=== PATIENT | female | born 1950 | race Caucasian/White ===

== ENCOUNTER 2019-05-23 12:18 | Outpatient (CLI) | payer MEDICARE, SELFPAY ==
--- NOTE | ~2019-05-23 | XR_ITS ---
XR chest 2V 05/23/2019 12:56 Indication: Emphysema. Cough. Procedure: 2 view chest Comparison: Comparison to multiple prior studies sequentially, with oldest reviewed study dated 02/2008. Findings: Status post median sternotomy for CABG. There are emphysematous changes. There is chronic l eft perihilar scarring. There is chronic elevation of the left diaphragm. No acute osseous abnormalit y. No acute focal pneumonia, edema or effusion. No pneumothorax. Impression: 1: No acute cardiopulmonary disease. No significant interval change from prior studies. Reviewed, dictated and finalized at location A. Impression: 1: No acute cardiopulmonary disease. No significant interval change from prior studies.
== END 2019-05-23 12:19 | disposition home or self-care (01) ==
PROVIDERS: PCP Family Medicine
DX: J43.9 Emphysema, unspecified (principal)
CPT/HCPCS: 71046; 93005

== ENCOUNTER 2019-06-04 09:45 | Outpatient (CLI) | payer MEDICARE, SELFPAY ==
--- NOTE | ~2019-06-04 | CT_ITS ---
EXAMINATION: CT brain wo con DATE: 06/04/2019 10:46 INDICATION: Chronic frontal headache. TECHNIQUE: Computed tomography (CT) of the head was performed without intravenous contrast. The mA wa s adjusted according to patient size. Iterative reconstruction technique was employed. The dose-lengt h product was 1226.69 mGy-cm. COMPARISON: None FINDINGS: Motion artifact is noted, which moderately decreases sensitivity. There are scattered areas of low attenuation in the cerebral white matter. There is no intracranial hemorrhage, acute infarcti on, or abnormal intracranial mass lesion. The ventricles are normal in size. There is an osteoma in r ight ethmoid sinus. There is mild mucosal thickening in the ethmoid sinuses. The mastoid air cells ar e normal. There are likely changes of ocular lens replacement surgeries. IMPRESSION: 1. Mild nonspecific cerebral white matter disease, which likely represents chronic small vessel ische olivia disease. Reviewed, dictated and finalized at location A. IMPRESSION: 1. Mild nonspecific cerebral white matter disease, which likely represents [employer] mukund small vessel ischemic disease.
[2019-06-04 10:06] LABS: Base Excess ABG 2.3 mmol/L (0-2); HCO3 ABG 27.8 mmol/L (23-29); Oxygen Content ABG 19.2 %vol (16.0-22.0); Oxygen Saturation ABG 94.4 % (95-97); Oxyhemoglobin 93.1 % (94-100); PCO2 ABG 46.6 mmHg (35-45); PO2 ABG 66.7 mmHg (75-85); Site Drawn LEFT BRACHIAL; Total Hemoglobin 14.7 g/dL; pH ABG 7.39 (7.35-7.45)
[2019-06-04 10:08] LABS: Device NASAL CANNULA
== END 2019-06-04 09:46 | disposition home or self-care (01) ==
LOC: CHSIMG 09:48
DX: R51 Headache (principal)
CPT/HCPCS: 36600; 70450; 82805

== ENCOUNTER 2019-08-04 08:36 | Outpatient (CLI) | payer MEDICARE, SELFPAY ==
[2019-08-04 09:20] LABS: Hemoglobin A1C 5.9 % (<5.7)
[2019-08-04 09:51] LABS: Alanine Aminotransferase 19 U/L (14-59); Albumin Level 3.8 g/dL (3.4-5.0); Alkaline Phosphatase 80 U/L (46-116); Aspartate Amino Transferase 13 U/L (15-37); Bilirubin Direct 0.1 mg/dL (0-0.2); Bilirubin,Total 0.4 mg/dL (0.00-1.00); Cholesterol 185 mg/dL (0-200); HDL Direct 51 mg/dL (40-60); LDL Cholesterol Calculated 109 mg/dL (<130); Thyroid Stimulating Hormone 1.08 uIU/mL (0.36-3.74); Triglycerides 127 mg/dL (0-150); Uric Acid 5.3 mg/dL (2.6-6.0)
== END 2019-08-04 08:37 | disposition home or self-care (01) ==
PROVIDERS: PCP Family Medicine; Visit Provider Family Medicine
DX: M10.00 Idiopathic gout, unspecified site (principal); E11.9 Type 2 diabetes mellitus without complications; E78.5 Hyperlipidemia, unspecified; E03.9 Hypothyroidism, unspecified
CPT/HCPCS: 36415; 80061; 80076; 83036; 84443; 84550

== ENCOUNTER 2020-03-15 12:55 | Outpatient (CLI) | payer MEDICARE, SELFPAY ==
--- NOTE | ~2020-03-15 | MM_ITS ---
EXAMINATION: MM screening p[place] BI w stephanie HISTORY: Screening mammogram TECHNIQUE: Craniocaudal and mediolateral oblique 3-D tomosynthesis images were obtained and synthetic 2-D images were generated. CAD analysis was submitted and interpreted. COMPARISON: 12/24/2018, 12/19/2017, 10/26/2016 bilateral digital screening mammogram examinations BREAST PARENCHYMAL COMPOSITION: There are scattered areas of fibroglandular density. FINDINGS: There is stable fibroglandular asymmetry. There is a stable benign circumscribed intramamma ry lymph node in the outer mid right breast. There is no evidence of suspicious mass, calcification, or architectural distortion to suggest malignancy in either breast. There has been no suspicious inte rval change. IMPRESSION: 1. No mammographic evidence of malignancy. 2. Recommend routine screening mammography in one year. BI-RADS Category 2: Benign finding(s). Reviewed, dictated and finalized at location A. LOGIST
== END 2020-03-15 12:56 | disposition home or self-care (01) ==
PROVIDERS: PCP Family Medicine; Visit Provider Family Medicine
DX: Z12.31 Encounter for screening mammogram for malignant neoplasm of breast (principal)
CPT/HCPCS: 77063; 77067

== ENCOUNTER 2020-12-13 08:43 | Outpatient (CLI) | payer MEDICARE, SELFPAY ==
[2020-12-13 10:08] LABS: Hemoglobin A1C 5.8 % (<5.7)
[2020-12-13 10:26] LABS: Cholesterol 168 mg/dL (0-200); HDL Direct 51 mg/dL (40-60); LDL Cholesterol Calculated 91 mg/dL (<130); Thyroid Stimulating Hormone 2.38 uIU/mL (0.36-3.74); Triglycerides 132 mg/dL (0-150)
== END 2020-12-13 08:44 | disposition home or self-care (01) ==
LOC: CHSLAB 08:47
PROVIDERS: PCP Family Medicine; Visit Provider Family Medicine
DX: E03.9 Hypothyroidism, unspecified (principal); E11.9 Type 2 diabetes mellitus without complications; E78.5 Hyperlipidemia, unspecified
CPT/HCPCS: 36415; 80061; 83036; 84443

== ENCOUNTER 2021-01-17 15:24 | Outpatient (RCR) | payer MEDICARE, SELFPAY ==
--- NOTE | 2021-01-17 17:05 | PTOPEVAL ---
Thank you for referring Tomeka Burrows to [facility].? The patient is scheduled to be seen for therapy? ____x/week for ___ weeks. Please review, sign, date and return this plan of care JONATHAN. I agree with and certify that the following plan of care is medically necessary. Referring Physician Date Admitting Provider: Attending Provider: Pavan Puga MD Referring Provider: *PT Outpatient Evaluation Start: 01/17/21 15:32 Freq: Status: Active Protocol: Document 01/17/21 15:33 ACR (Rec: 01/17/21 17:05 ACR [id number]) Therapy Assessment Status Assessment Status Assessment Status Evaluation Evaluation Information Problem Diagnosis Neck and L shoulder pain Onset 11/11/20 Subjective Information Patient reports that she fell Query Text:As Reported By Patient/ on concrete after she tripped Family over a flower pot. She states that she did not go to the ED after because her had just gotten home from surgery. She states that she followed up with the doctor and he sent her to a specialist. She went to the specialist and is not a candidate for surgery due to her O2. She states that she got a cortizone shot which helped for the day. She states she is unable to sleep through the night because of the pain. Patient reports that she is unable to do grooming and dressing activities along with reaching overhead and getting in and out of the shower. Patient denies radicular symptoms. Patient states that her goal for therapy is to be able to lift her arm over her head. Prior Level of Function Activity Level (Last 3 Months) Occupation retired Hand Dominance Right Activity of Daily Living Ability Independent Indoor/Home Mobility Independent Community Mobility Independent Stairs Ability Independent Functional Cognition (Planning, Shopping Independent , Taking Medications) Cooking No Cleaning No Laundry Yes Shopping No Driving
== END 2021-02-28 18:00 | disposition home or self-care (01) ==
LOC: CHSPT 15:24
PROVIDERS: Visit Provider Specialist
DX: M54.2 Cervicalgia (principal); M25.512 Pain in left shoulder
CPT/HCPCS: 97014; 97110; 97140; 97161; G0283

== ENCOUNTER 2022-08-01 13:56 | Outpatient (CLI) | payer MEDICARE, SELFPAY ==
[2022-08-01 14:54] LABS: Albumin Level 3.6 g/dL (3.4-5.0); Anion Gap 5 mmol/L (8-16); Blood Urea Nitrogen 20 mg/dL (7-18); Calcium 10.1 mg/dL (8.5-10.1); Carbon Dioxide 37 mmol/L (21-32); Chloride 99 mmol/L (98-108); Estimated Glomerular Filt Rate > 60; Glucose 145 mg/dL (70-99); Magnesium 1.3 mg/dL (1.8-2.4); Osmolality Calculated 297 mOsm/kg (285-295); Phosphorus 2.1 mg/dL (2.6-4.7); Potassium 3.5 mmol/L (3.5-5.1); Sodium 141 mmol/L (136-145)
[2022-08-04 22:37] LABS: Parathyroid Intact 116 pg/mL (14-64)
[2022-08-06 06:43] LABS: Vitamin D 25 Hydroxy 39 ng/mL (30-100)
== END 2022-08-01 13:57 | disposition home or self-care (01) ==
PROVIDERS: PCP Family Medicine
DX: E83.50 Unspecified disorder of calcium metabolism (principal)
CPT/HCPCS: 36415; 80069; 82306; 83735; 83970

== ENCOUNTER 2023-02-06 13:12 | Outpatient (CLI) | payer MEDICARE, SELFPAY ==
[2023-02-06 14:31] LABS: Albumin Level 3.8 g/dL (3.4-5.0); Anion Gap 2 mmol/L (8-16); Blood Urea Nitrogen 15 mg/dL (7-18); Calcium 10.7 mg/dL (8.5-10.1); Carbon Dioxide 42 mmol/L (21-32); Chloride 101 mmol/L (98-108); Estimated Glomerular Filt Rate 48; Glucose 138 mg/dL (70-99); Magnesium 1.1 mg/dL (1.8-2.4); Osmolality Calculated 302 mOsm/kg (285-295); Phosphorus 2.7 mg/dL (2.6-4.7); Potassium 3.8 mmol/L (3.5-5.1); Sodium 145 mmol/L (136-145)
[2023-02-08 19:17] LABS: Parathyroid Intact 181 pg/mL (14-64)
== END 2023-02-06 13:13 | disposition home or self-care (01) ==
LOC: CHSLAB 13:17
PROVIDERS: PCP Family Medicine
DX: E21.0 Primary hyperparathyroidism (principal); E83.52 Hypercalcemia; E11.9 Type 2 diabetes mellitus without complications
CPT/HCPCS: 36415; 80069; 83735; 83970

== ENCOUNTER 2023-04-11 07:35 | Outpatient (CLI) | payer MEDICARE, SELFPAY ==
[2023-04-11 08:11] LABS: Hemoglobin A1C 5.7 % (<5.7)
[2023-04-11 09:09] LABS: Thyroid Stimulating Hormone 2.93 uIU/mL (0.36-3.74); Vitamin B12 664 pg/mL (193-986)
== END 2023-04-11 07:36 | disposition home or self-care (01) ==
LOC: CHSLAB 07:38
PROVIDERS: PCP Family Medicine; Visit Provider Family Medicine
DX: E03.9 Hypothyroidism, unspecified (principal); R73.9 Hyperglycemia, unspecified
CPT/HCPCS: 36415; 82607; 83036; 84443

== ENCOUNTER 2023-10-15 13:41 | Outpatient (CLI) | payer MEDICARE, SELFPAY ==
[2023-10-15 14:03] LABS: Hematocrit 35.7 % (35.0-42.0); Hemoglobin 11.1 g/dL (11.7-13.8); Mean Corpuscular HGB Conc 31.1 g/dL (32-36); Mean Corpuscular Hemoglobin 30.1 pg (27.0-31.0); Mean Corpuscular Volume 96.7 fL (78.0-102.0); Mean Platelet Volume 9.2 fl (9.2-11.8); Platelet Count Result 237 K/mm3 (150-420); Red Blood Count 3.69 M/mm3 (4.20-5.40); Red Cell Distribution Width 12.9 % (11.6-14.4)
[2023-10-15 16:46] LABS: Albumin Level 3.6 g/dL (3.4-5.0); Anion Gap 6 mmol/L (4-12); Blood Urea Nitrogen 17 mg/dL (7-18); Calcium 9.8 mg/dL (8.5-10.1); Carbon Dioxide 39 mmol/L (21-32); Chloride 99 mmol/L (98-108); Estimated Glomerular Filt Rate 50; Glucose 100 mg/dL (70-99); Iron 47 ug/dL (50-170); Osmolality Calculated 299 mOsm/kg (285-295); Percent Iron Saturation 19 % (12-57); Phosphorus 3.1 mg/dL (2.6-4.7); Potassium 4.1 mmol/L (3.5-5.1); Sodium 144 mmol/L (136-145)
[2023-10-16 16:09] LABS: Parathyroid Intact 174 pg/mL (16-77)
[2023-10-19 15:44] LABS: Vitamin D 1,25 (OH)2 Total 52 pg/mL (18-72); Vitamin D2 1,25 (OH)2 <8 pg/mL; Vitamin D3 1,25 (OH)2 52 pg/mL
== END 2023-10-15 13:42 | disposition home or self-care (01) ==
LOC: CHSLAB 13:45
PROVIDERS: PCP Family Medicine; Visit Provider Internal Medicine Nephrology
DX: N20.0 Calculus of kidney (principal); N18.31 Chronic kidney disease, stage 3a; E83.52 Hypercalcemia
CPT/HCPCS: 36415; 80069; 82652; 83540; 83550; 83970; 85027

== ENCOUNTER 2023-10-15 14:00 | Emergency (ER) | payer MEDICARE, SELFPAY ==
--- NOTE | ~2023-10-15 | XR_ITS ---
EXAMINATION: XR hand LT min 3V DATE: 10/15/2023 14:19 INDICATION: Left hand pain and swelling. TECHNIQUE: 3 views of left hand were obtained. COMPARISON: None. FINDINGS: Alignment is normal. No fracture. There is severe osteoarthritis of distal radioulnar joint and first carpometacarpal joint. There is mild osteoarthritis of first-third metacarpophalangeal shane nts and some of the interphalangeal joints. IMPRESSION: 1. Polyarticular osteoarthritis. Reviewed, dictated and finalized at location A.
[2023-10-15 14:00] VITALS: BP 131/87; PULSE 84; RESP 16; TEMP 36.3; O2SAT 95
--- NOTE | 2023-10-15 14:17 | ED_ITS ---
HPI - General Adult General Chief complaint: Extremity Injury, Upper Stated complaint: Left hand swelling Time Seen by Provider: 10/15/23 14:04 History of Present Illness HPI narrative: Tomeka is a 73F with a PMH of COPD on oxygen, CKD, Obesity, and gout that presented to clinic with pain and swelling in her left hand. NO trauma or injury. No fevers, chills, N/V or systemic symptoms. Related Data Allergies Allergy/AdvReac Type Severity Reaction Status Date / Time No Known Allergies Allergy Verified 10/15/23 14:08 Review of Systems Review of Systems: All systems reviewed & are unremarkable except as noted in HPI and below Exam Const: General: cooperative, comfortable, no acute distress, well developed, alert, awake and Physically active Orientation/consciousness: oriented to person, oriented to place and oriented to time Other: wheelchair bound HENMT: Head: normal to inspection, normocephalic and atraumatic Ears: hearing grossly normal bilaterally and external ears normal Face/Nose/Sinus: Normal external nose present Eyes: General: appearance normal, both eyes and all related structures Periorbital: periorbital findings normal Sclera: sclerae normal Pupils: Equal, round and reactive pupils present Neck: Neck: normal visual inspection Chest: Chest palpation & inspection: normal inspection of the chest Resp: Effort & Inspection: normal respiratory effort, able to speak in complete sentences and no respiratory distress Auscultation: clear to auscultation bilaterally Other: on supplemental oxygen Cardio: Jugular venous distension: no JVD Rate: regular rate Rhythm: regular rhythm GI: Inspection: normal to inspection GI Palp: Yes Soft to palpation Auscultation: normal bowel sounds Skin: General skin exam: normal color and no rashes or lesions noted Neuro: General: oriented to person, oriented to place and oriented to time Cranial nerves: Yes Equal, round and reactive pupils present Extrem: General: normal to inspection Course Course Emergency Course: Given [place] for the pain. Ordered radiograph EXAMINATION: XR hand LT min 3V DATE: 10/15/2023 14:19 INDICATION: Left hand pain and swelling. TECHNIQUE: 3 views of left hand were obtained. COMPARISON: None. FINDINGS: Alignment is normal. No fracture. There is severe osteoarthritis of distal radioulnar joint and first carpometacarpal joint. There is mild osteoarthritis of first-third metacarpophalangeal joints and some of the interphalangeal joints. IMPRESSION: 1. Polyarticular osteoarthritis. Discharge Plan Discharge Clinical Impression: Gout flare Patient Disposition: Home, Self-Care Condition: Stable Instructions: Gout (ED) Prescriptions: New prednisone 10 mg tablet 10 mg PO DIRECTED Qty: 15 0RF Rx Instructions: 5-4-3-2-1 hydrocodone-acetaminophen 5-325 mg tablet 1 tablet PO Q8H PRN (Reason: pain) Qty: 10 0RF Follow-up/Referrals: Percy,Nicolas Jimenez MD [Primary Care Provider] -
[2023-10-15] MEDS: HYDROcodone/acetaminophen (*CRX) 5-325 MG TABLET 1 TAB PO (14:18)
[2023-10-15] MEDS: predniSONE 20 MG TABLET 60 MG PO (14:39)
[2023-10-15 14:51] VITALS: BP 137/86; PULSE 80; RESP 17; O2SAT 97
[2023-10-15 14:55] VITALS: BP 137/86; PULSE 80; RESP 17; TEMP 36.3; O2SAT 97
== END 2023-10-15 14:55 | disposition home or self-care (01) ==
PROVIDERS: Emergency Provider Family Medicine; PCP Family Medicine
DX: M10.9 Gout, unspecified (principal); J44.9 Chronic obstructive pulmonary disease, unspecified; N18.9 Chronic kidney disease, unspecified; Z99.81 Dependence on supplemental oxygen
CPT/HCPCS: 36415; 73130; 80069; 82652; 83540; 83550; 83970; 85027; 99283; A9270; J7512

== ENCOUNTER 2024-02-22 12:46 | Outpatient (CLI) | payer MEDICARE, SELFPAY ==
--- NOTE | ~2024-02-22 | XR_ITS ---
XR abdomen/kub 1V Ordering provider: Heather Vogel, KEARA History: . Left Renal Stone f/u . Comparison: None. FINDINGS: BOWEL: Nonobstructive bowel gas pattern. ORGANOMEGALY: None. SIGNIFICANT PATHOLOGIC CALCIFICATIONS: Stones in the left kidney lower pole with the largest measures 2.2 cm.. OTHER: No free air is seen under the diaphragm. Degenerative changes of the spine. Bilateral hip oste oarthritic changes. Right sacroiliitis. Pubic symphysitis. IMPRESSION: NO ACUTE ABDOMINAL FINDINGS. Left kidney stones. Reviewed, dictated and finalized at location A. [employer]
--- NOTE | ~2024-02-22 | CT_ITS ---
EXAMINATION: CT abdomen pelvis wo con DATE: 02/22/2024 13:09 INDICATION: Left Renal Stone f/u TECHNIQUE: Computed tomography (CT) of the abdomen and pelvis was performed without intravenous contr ast. Automated exposure control and iterative reconstruction technique were employed. The dose-length product was 741.26 mGy-cm. COMPARISON: 10/12/2011. FINDINGS: Lower thorax: Interstitial/emphysematous change. Dilated central pulmonary arteries as can be seen wi th pulmonary artery hypertension. Lingular scar. Multiple pulmonary nodules measuring up to 5 mm in t he left lower lobe. Calcified left lower lobe granuloma. Coronary artery calcifications. Liver: Normal. Biliary/Gallbladder: Gallbladder is normal. No bile duct dilation. Pancreas: Fatty infiltration. Spleen: Normal. Adrenals:No mass. Kidneys: No suspicious mass or hydronephrosis. Punctate left upper pole calcifications. Staghorn left lower pole calcification. Simple exophytic left lower pole and mid pole cysts. GI tract: No small or large bowel dilation. Normal appendix. Diverticulosis without diverticulitis. Mesentery/Peritoneum: No ascites, mass, or free air. Retroperitoneum: No mass. Atherosclerotic abdominal aortic and/or arterial calcifications. Pelvis: Normal urinary bladder. Absent uterus. Bilateral ovaries not confidently identified. Soft Tissues: Small fat-containing uncomplicated umbilical hernia. Bones: No acute osseous finding. IMPRESSION: Multiple sub-6 mm pulmonary nodules. If the patient is at high risk, consider an optional low-dose no ncontrast CT of the chest in one year. Punctate left upper pole and staghorn left lower pole renal calcifications. Reviewed, dictated and finalized at location K. IT[employer]OVER IMPRESSION: Multiple sub-6 mm pulmonary nodules. If the patient is at high risk, consider a n optional low-dose noncontrast CT of the chest in one year. Punctate left upper pole and staghorn left lower pole renal calcifications.
== END 2024-02-22 12:47 | disposition home or self-care (01) ==
PROVIDERS: PCP Family Medicine; Visit Provider Physician Assistant Medical
DX: N20.0 Calculus of kidney (principal); R91.8 Other nonspecific abnormal finding of lung field
CPT/HCPCS: 74018; 74176

== ENCOUNTER 2024-03-24 10:06 | Outpatient (CLI) | payer MEDICARE, SELFPAY ==
[2024-03-24 11:31] LABS: Hemoglobin A1C 5.4 % (<5.7)
[2024-03-24 11:37] LABS: Cholesterol 178 mg/dL (0-200); HDL Direct 57 mg/dL (40-60); LDL Cholesterol Calculated 92 mg/dL (<130); Triglycerides 145 mg/dL (0-150)
--- OUTSIDE RECORDS SUMMARY | 2024-03-24 13:00 | XMS_ITS | Clinical Summary ---
Author Organization [facility] Address [address] [address] Phone Care Team Providers Care Hunting Sales Leader Name Role Phone Ariel Christiansen MD Unavailable Parmjit Vogel MD Unavailable [phone] Nicolas Greer MD Primary Care Provider [phone] Keny Saldaña APRN, WOOD ENGRAVER Unavailable Jerardo MCCANN MD, Courtney Unavailable [phone] Raghu Green MD Unavailable Warren Osborn MD Unavailable Ale Spain RN Unavailable Unavailable Chetan Do MD Unavailable Allergies Active Allergy Reactions Criticality Noted Date Comments Vitamin D (Calciferol) Other (see Comments) 01/03/2022 Will stop due to hypercalcemia Medications Nebulizers (PORTABLE COMPRESSOR NEBULIZER) Misc Use as directed with nebulizer medications. 1 Each 020 Active OXYGEN CONCENTRATOR 3 L/min by Nasal route continuous. may use portable tanks when concentrator is unavailable Active benzonatate (Tessalon Perles) 100 MG Capsule Take 1 Capsule by mouth 3 times daily as needed for Cough for up to 10 days. 30 Capsule 023 Active Additional Information Patient not taking.Reported on 10/25/2023 fluticasone (FLONASE) 50 MCG/ACT Suspension USE 1 OR 2 SPRAYS IN EACH NOSTRIL DAILY 16 mL 1 023 Active traMADol (ULTRAM) 50 MG TabletIndicatio ns:Chronic pain of both knees TAKE ONE TABLET BY MOUTH EVERY EIGHT HOURS NEEDED FOR PAIN 90 Tablet 023 Active cinacalcet (SENSIPAR) 30 MG Tablet 2 times daily. 023 Active vitamin b-12 (CYANOCOBALAMIN ) 100 MCG Tablet TAKE TWO TABLETS BY MOUTH DAILY #0200 180 Tablet 1 024 Active Additional Information Patient not taking.Reported on 03/20/2024 True Metrix Blood Glucose Test StripIndication s:Controlled type 2 diabetes mellitus without complication (HCC) USE FOR TESTING TWICE A DAY DIRECTED 100 Strip 3 024 Active magnesium oxide (MAG-OX) 400 MG Tablet Take 400 mg by mouth daily. Active ipratropium-alb uterol (DUO-NEB) 0.5-2.5 (3) MG/3ML SolutionIndicat ions:Chronic obstructive pulmonary disease with acute exacerbation (HCC) INHALE THE CONTENTS OF ONE VIAL PER NEBULIZATION FOUR TIMES A DAY DIRECTED 360 mL 2 024 Active Breztri Aerosphere 160-9-4.8 MCG/ACT Aerosol INHALE TWO PUFFS BY MOUTH IN THE MORNING AND AT BEDTIME 10.7 g 2 024 Active albuterol 108 (90 Base) MCG/ACT Aerosol Solution INHALE 2 PUFFS EVERY FOUR HOURS NEEDED FOR WHEEZING 8.5 g 1 024 Active Benzonatate 200 MG Capsule Take 1 Capsule by mouth 3 times daily as needed for Cough for up to 210 days. 90 Capsule 6 024 2024 Active torsemide (DEMADEX) 20 MG TabletIndicatio ns:Edema, unspecified type TAKE ONE TABLET BY MOUTH DAILY #0100 90 Tablet 1 024 Active levothyroxine (SYNTHROID) 137 MCG Tablet TAKE ONE TABLET BY MOUTH DAILY #1000 90 Tablet 3 024 Active folic acid (FOLVITE) 1 MG Tablet TAKE ONE TABLET BY MOUTH DAILY #0100 90 Tablet 3 024 Active furosemide (LASIX) 20 MG Tablet TAKE ONE TABLET BY MOUTH DAILY #1000 90 Tablet 3 024 Active rOPINIRole (REQUIP) 0.25 MG Tablet TAKE ONE TABLET BY MOUTH NIGHTLY #0001 90 Tablet 3 024 Active trospium (SANCTURA) 20 MG TabletIndicatio ns:Mixed stress and urge urinary incontinence TAKE ONE TABLET BY MOUTH TWICE A DAY #1010 90 Tablet 2 024 Active Additional Information Patient not taking.Reported on 03/20/2024 esomeprazole (NexIUM) 40 MG CAPSULE DELAYED RELEASE TAKE ONE CAPSULE BY MOUTH EVERY MORNING BEFORE BREAKFAST #1000 90 Capsule 1 024 Active alendronate (FOSAMAX) 70 MG Tablet Take 1 Tablet by mouth every 7 days. 12 Tablet 1 024 Active vitamin b-12 (CYANOCOBALAMIN ) 500 MCG Tablet TAKE TWO TABLETS BY MOUTH DAILY #0200 180 Tablet 025 Active allopurinol (ZYLOPRIM) 100 MG Tablet TAKE TWO TABLETS BY MOUTH DAILY #2000 180 Tablet 2 025 Active Aspirin Low Dose 81 MG Tablet Delayed Response TAKE 1 TABLET BY MOUTH DAILY. #1000 90 Tablet 2 025 Active potassium chloride CR (KLORCON) 10 MEQ Tablet Controlled Release TAKE TWO TABLETS BY MOUTH DAILY #2000 180 Tablet 2 025 Active lovastatin (MEVACOR) 40 MG Tablet TAKE ONE TABLET BY MOUTH DAILY #0001 90 Tablet 2 025 Active sertraline (ZOLOFT) 100 MG TabletIndicatio ns:Depression with anxiety,Depress ion, unspecified depression type Take 1.5 Tablets by mouth daily. 90 Tablet 3 025 Active Aspirin Low Dose 81 MG Tablet Delayed Response TAKE 1 TABLET BY MOUTH DAILY. #1000 90 Tablet 2 024 2024 Discontinued allopurinol (ZYLOPRIM) 100 MG Tablet TAKE TWO TABLETS BY MOUTH DAILY #2000 180 Tablet 2 024 2024 Discontinued potassium chloride CR (KLORCON) 10 MEQ Tablet Controlled Release TAKE TWO TABLETS BY MOUTH DAILY #2000 180 Tablet 2 024 2024 Discontinued lovastatin (MEVACOR) 40 MG Tablet Take 1 Tablet by mouth daily. 90 Tablet 2 024 2024 Discontinued sertraline (ZOLOFT) 100 MG TabletIndicatio ns:Depression with anxiety,Depress ion, unspecified depression type Take 1 Tablet by mouth daily. 90 Tablet 3 024 2024 Discontinued(D ose adjustment) carbamide peroxide (DEBROX) 6.5 % Solution Place 5 Drops in affected ear(s) 2 times daily. 15 mL 024 2024 Discontinued(M ed List Clean Up) HYDROcodone-horacio taminophen (NORCO) 5-325 MG Tablet 024 2024 Discontinued(M ed List Clean Up) Active Problems Problem Noted Date Diagnosed Date Multiple lung nodules on CT 03/20/2024 Osteoporosis without current pathological fractu re 11/12/2023 URI, acute 10/25/2023 Impacted cerumen of left ear 07/18/2023 Postmenopausal 07/18/2023 Depression with anxiety 07/18/2023 History of colon polyps 04/04/2023 Bilateral impacted cerumen 09/21/2022 Chronic respiratory failure with hypoxia and hyp ercapnia 09/11/2022 Urinary incontinence 07/18/2022 Chronic pain syndrome 06/21/2022 Kidney stone 06/21/2022 Asymptomatic microscopic hematuria 03/25/2022 Fatigue 02/13/2022 Anemia, normocytic normochromic 02/13/2022 Hypercalcemia 02/13/2022 Constipation 01/11/2022 Eye swelling 01/11/2022 Lung nodule, multiple 01/04/2022 Restless legs syndrome (RLS) 01/04/2022 Pleural effusion 12/19/2021 B12 deficiency 12/19/2021 Polypharmacy 08/03/2021 Hyperglycemia 08/03/2021 Impaired mobility and ADLs 07/22/2021 Chronic left shoulder pain 04/28/2021 Encounter for immunization 12/20/2020 Blepharitis of left lower eyelid 09/22/2020 SOB (shortness of breath) 06/08/2020 Chronic obstructive pulmonary disease 03/11/2020 Diarrhea 03/11/2020 Depression 11/05/2018 Chronic pain of both knees 08/02/2018 Chronic low back pain with sciatica 08/02/2018 Chronic cough 04/30/2018 Hypokalemia 04/30/2018 Osteopenia 01/25/2018 Hx of colonic polyp 10/20/2016 SANDRA on CPAP 08/22/2016 Tobacco abuse 12/09/2015 Morbid obesity (<HCC>) 09/02/2015 Essential hypertension 06/01/2015 Hypothyroidism 06/01/2015 Idiopathic gout 06/01/2015 Type 2 diabetes mellitus, controlled 06/01/2015 Non-insulin dependent type 2 diabetes mellitus 1 03/09/2014 Hyperlipidemia 01/06/2015 Resolved Problems Problem Noted Date Diagnosed Date Resolved Date COPD exacerbation 01/11/2022 01/08/2023 Acute on chronic respiratory failure with hypoxia and hypercapnia 12/24/2021 12/28/2021 COPD exacerbation 12/24/2021 12/28/2021 Pleural effusion on left 12/24/2021 Community acquired pneumonia 12/24/2021 12/28/2021 Abnormal CXR 12/19/2021 02/14/2024 Cough 12/19/2021 02/14/2024 CHF (congestive heart failure) 09/02/2021 09/05/2021 Hypomagnesemia 09/02/2021 09/05/2021 Encounters Date Type Department Care Team Description 03/21/[address] [facility] Studio Assistant Management [address] [place] [phone] Ale Spain RN 03/20/2024 4:00 PM LEARNING OFFICER Office Visit [facility] [address] [place] [address] Nicolas Greer MD Non-insulin dependent type 2 diabetes mellitus (HCC) (Primary Dx); Multiple lung nodules on CT; Depression, unspecified depression type; Hyperlipidemia, unspecified hyperlipidemia type Discharge Disposition: Discharged to home or Selfcare 03/20/2024 Travel 03/19/2024 Refill [facility] [address] [place] [address] Nicolas Greer MD Medication Refill 03/03/2024 Plan of Care Documentation [facility] Management [address] [place] [phone] 03/03/2024 Patient Outreach [facility] Studio Assistant Management [address] [place] [phone] Ale Spain, WALDO Care Management ([facility]) 02/20/2024 Refill [facility] [address] [place] [address] Nicolas Greer MD Medication Refill 02/14/2024 10:45 AM LEARNING OFFICER Office Visit [facility] Pulmonology & Sleep Medicine [facility] [address] [place] [address] Raghu Green MD Other emphysema (HCC) (Primary Dx); Chronic respiratory failure with hypoxia and hypercapnia (HCC); SANDRA on CPAP; Essential hypertension; Morbid obesity (<HCC>); Restless legs syndrome (RLS) Discharge Disposition: Discharged to home or Selfcare 02/14/2024 Travel 02/04/2024 Patient Outreach [facility] Studio Assistant Management [address] [place] [phone] Ale Spain, WALDO Care Management ([facility] ) 01/27/2024 Telephone [facility] [address] [place] [address] Chetan Do MD Results 01/25/2024 2:15 PM LEARNING OFFICER Office Visit [facility] [address] [place] [address] Nicolas Greer MD Tae, Wonil, MD Osteoporosis without current pathological fracture, unspecified osteoporosis type (Primary Dx); Hypercalcemia; Hyperparathyroidism (HCC); Morbid obesity (HCC) Discharge Disposition: Discharged to home or Selfcare 01/25/2024 Travel 01/14/2024 Refill [facility] [address] [place] [phone] Nicolas Greer MD Medication Refill 01/01/2024 Patient Outreach [facility] Studio Assistant Management [address] [place] [address] Ale Spain RN Care Management ([facility]) from Last 3 Months Immunizations Immunization Administration Dates Next Due Covid-19, Mrna, Lnp-s, PF, 1 00 mcg/0.5 mL Dose (Moderna) 05/07/2020,04/09/2020 Influenza Vaccine greater than 3 yrs 11/17/2015, 12/08/2014 Influenza Vaccine less than 3 yrs 10/25/2018 Influenza Vaccine, Quadrivalent, PF 12/06,12/20/2020,10/14/2019,2017,12/08/2014 Influenza, Seasonal, Injecta ble, Undefined 10/25/2018,12/07/2014 Influenza, high-dose, trivalent, PF 10/18/2018,0 11/01/2016,11/17/2015 PNEUMONIA ADULT IM [id number] 11/01/2016 Pneumococcal Vaccine - 13 Valent 11/17/2015 Pneumococcal Vaccine Adult - 23 Valent 11/01/2016 Family History Medical History Relation Name Comments Congestive Heart Failure Brother 1 Diego Diabetes Brother 1 Diego Cancer Brother 2 Heart Attack Brother 3 No Known Problems Daughter Aneurysm Father Hypertension Father Cancer Mother [place] uterus Heart Attack Mother [place] Hypertension Mother [place] Ovarian Cancer Mother [place] Other-comment Sister 2 Diabetes Son Hypertension Son Rheumatoid Arthritis Neg Hx Relation Name Status Comments Brother 1 Diego Brother 2 Brother 3 Brother 4 Brother 5 Brother 6 Brother 7 Daughter Alive Father Mother [place] Sister 1 Alive Sister 2 Son Alive Social History Tobacco Use Types Packs/Day Years Used Date Smoking Tobacco: Former Cigarettes 0.5 50 1 957 - 2007 Smokeless Tobacco: Never Tobacco Cessation:Counseling Given: Yes Alcohol Use Standard Drinks/Week Comments No 0 (1 standard drink = 0.6 oz pur e alcohol) [facility] Utilities Answer Date Recorded In the past 12 months has e electric, gas, oil, or water company threatened to shut off services in your home? No 03/03/2024 Social Connection and Isolation Panel [NHANES] A nswer Date Recorded In a typical week, how many times do you talk on the phone with family, friends, or neighbors? Twice a week 03/03/2024 How often do you get together with friends or re latives? Twice a week 03/03/2024 How often do you attend anglican or jain serv ices? Never 03/03/2024 Do you belong to any clubs o r organizations such as anglican groups, unions, fraternal or athletic groups, or school groups? No 03/03/2024 How often do you attend meet ings of the clubs or organizations you belong to? Never 03/03/2024 Are you , , di vorced, , never , or living with a partner? 03/03/2024 AUDIT-C Answer Date Recorded Q1: How often do you have a drink containing alcohol? Never 03/03/2024 Q2: How many drinks containi ng alcohol do you have on a typical day when you are drinking? Patient does not drink Q3: How often do you have si x or more drinks on one occasion? Never 03/03/2024 Overall Financial Resource Strain (CARDIA) Answe r Date Recorded How hard is it for you to pa y for the very basics like food, housing, medical care, and heating? Not hard at all 03/03/2024 PHQ-2 Answer Date Recorded Total Score - Questions 1-9 0 02/06 [facility] - Occupational Stress Questionnaire Answer Date Recorded Do you feel stress - tense, restless, nervous, or anxious, or unable to sleep at night because your mind is troubled all the time - these days? Only a little 03/03/2024 Exercise Vital Sign Answer Date Recorde d On average, how many days pe r week do you engage in moderate to strenuous exercise (like a brisk walk)? 0 days 03/03/2024 On average, how many minutes do you engage in exercise at this level? 0 min 03/03/2024 Hunger Vital Sign Answer Date Recorded Within the past 12 months, y ou worried that your food would run out before you got the money to buy more. Never true 03/03/19 25 Within the past 12 months, t he food you bought just didn't last and you didn't have money to get more. Never true 03/03/2024 PRAPARE - Transportation Answer Date Re corded In the past 12 months, has l ack of transportation kept you from medical appointments or from getting medications? No 02/06 In the past 12 months, has l ack of transportation kept you from meetings, work, or from getting things needed for daily living? No 03/03/2024 Housing Stability Vital Sign Answer Yuri e Recorded In the last 12 months, was t here a time when you were not able to pay the mortgage or rent on time? Patient declined 04/04/19 24 Number of Places Lived in the Last Year Not on f ile 04/04/2023 In the last 12 months, was t here a time when you did not have a steady place to sleep or slept in a senior care (including now)? Patient declined 04/04/2023 Housing Stability Vital Sign Answer Yuri e Recorded In the last 12 months, was t here a time when you were not able to pay the mortgage or rent on time? No 03/03/2024 In the past 12 months, how m any times have you moved where you were living? 0 03/03/2024 At any time in the past 12 m [facility], were you homeless or living in a senior care (including now)? No 03/03/2024 Education Answer Date Recorded What is the highest level of school you have completed or the highest degree you have received? 12th grade 08/03/2021 Sexually Active Control Partners Comments Not Currently Male Comments No Sex and Gender Information Value Date Recorded Sex Assigned at Not on file Legal Sex Female 7:47 PM CDT Gender Identity Not on file Sexual Orientation Not on file Occupation Industry Job Start Date Job End Date Retired [employer] Not on file Not on file Not on file Last Filed Vital Signs Vital Sign Reading Time Taken Comments Blood Pressure 130/72 03/20/2024 3:50 PM LEARNING OFFICER Pulse 102 03/20/2024 3:50 PM LEARNING OFFICER Temperature 36.1 C (96.9 F) 03/20/2024 3:50 PM LEARNING OFFICER Respiratory Rate 14 02/14/2024 11:08 AM LEARNING OFFICER Oxygen Saturation 95% 03/20/2024 3:50 PM LEARNING OFFICER Inhaled Oxygen Concentration - - Weight 106.1 kg (234 lb) 03/20/2024 3:50 PM LEARNING OFFICER Height 152.4 cm (5') 03/20/2024 3:50 PM LEARNING OFFICER Body Mass Index 45.7 03/20/2024 3:50 PM LEARNING OFFICER Plan of Treatment Upcoming Encounters Date Type Department Care Team (Late st Contact Info) Description 04/24/2024 2:00 PM CDT Office Visit [facility] - Endocr[facility]ology - [place] [address] [place] [address] Chetan Do MD [address] [address] 08/14/2024 1:00 PM CDT Office Visit [facility] - Pulmonology & Sleep Medicine - [place] [address] [facility] [place] [address] Raghu Green MD [address] [place] [address] 09/17/2024 1:00 PM CDT Office Visit [facility] - [place] [address] [place] [address] Nicolas Greer MD [address] [address] Health Maintenance Due Date Last Done Comments Diabetes: Foot Exam 1950 TdaP Immunization 1950 Zoster Immunization (1 of 2) 01/27/1998 Diabetes: Eye Exam 06/08/2021 06/09/2019, 06/12/2017 Respiratory Syncytial Virus (RSV) Immunization (Adult) (1 - 1-dose 75+ series) 01/27/2023 Influenza Immunization (#1) 10/07/202312/06, 12/20/2020, 10/14/2019, Additional history exists SARS-COV-2 Immunization ( season) 2023 01/26/2021, 05/07/2020, 04/09/2020 Diabetes: Hemoglobin A1c 01/17/2024 024, 12/25/2021, 08/05/2021, Additional history exists Diabetes: Nephropathy Screening 01/24/2025 01/25/2024, 07/18/2023, 12/24/2021, Additional history exists DEXA Bone Density 11/06/2025 11/07/2023, , 12/19/2017 Hepatitis C Virus (HCV) Screening Completed 02/22/2016 Pneumococcal Immunization (50+ years) Completed 11/01/2016, 11/01/2016, 11/17/2015 Pneumococcal Immunization Combined Discontinued 11/01/2016, 11/01/2016, 11/17/2015 Mammogram Discontinued 10/12/2021, 0 09/2020, 12/24/2018, Additional history exists Colonoscopy High Risk Discontinued 06/14/2023, 018 Colonoscopy Discontinued 06/14/2023, 0 10/2023, 07/20/2017 Colorectal Cancer Screening Discontinued Cologuard Discontinued Hepatitis B Immunization Aged Out No longer eligible based on patient's age to complete this topic Immunochemical Fecal Occult Blood Discontinued Meningococcal Immunization (ACWY) Aged Out No longer eligible based on patient's age to complete this topic Rotavirus Immunization Aged Out No lo nger eligible based on patient's age to complete this topic Goals Goal Patient Goal Type Associated Problems Recent Progress Patient-Stated? Author Become More Active Patient Goals On track(2024 3:47 PM LEARNING OFFICER) Yes Ale Spain RN Note: Follow Up Date 03/2024 - keep track of how long I exercise - keep track of how often I exercise Why is this important? It is easy to come up with reasons not to exercise. These steps will help you get started and have fun doing it. Notes: Track and Manage My Symptoms Patient Goals On track(2024 3:51 PM LEARNING OFFICER) Yes Ale Spain RN Note: Follow Up Date 03/2024 - eliminate symptom triggers at home - follow rescue plan if symptoms flare up - keep follow-up appointments - use an extra pillow to sleep Why is this important? Tracking your symptoms and other information about your health helps your doctor plan your care. Write down the symptoms, the time of day, what you were doing and what medicine you are taking. You will soon learn how to manage your symptoms. Notes: Disease Progression Minimized or Managed Care Plan Disease Progression (COPD) Ale Tanner RN Note: Evidence-based guidance: Identify smoking status; perform brief cessation intervention, such as 5 A s (ask, advise, assess, assist, arrange) or 5 R s (relevance, risks, rewards, roadblocks, repetition) and referral for treatment, such as cessation counseling and pharmacotherapy. Assess symptom control by the frequency and type of symptoms, ROBERTO CARLOS (short-acting beta-2 agonist) use and activity limitation at every encounter. Assess risk for exacerbation (flare-up) by evaluating spirometry, pulse oximetry, ROBERTO CARLOS use, presentation of symptoms and activity limitation; anticipate treatment adjustment based on risks and resources. Establish development and adherence to self-management COPD (chronic obstructive pulmonary disease) action plan, even when symptoms are controlled or infrequent. Identify triggers, such as smoking, secondhand smoke exposure, virus, weather change, emotional upset, exercise, obesity, environmental allergen, as well as comorbidities, such as diabetes, heart failure, obstructive sleep apnea, depression and anxiety which may worsen symptoms; consider occupational-exposure reduction versus elimination to avoid compromising employment. Review medication use, including delivery method, dose, frequency; identify barriers to adherence, such as access to medication, adverse reaction or lack of skill. Assess medication efficacy; monitor side effects including impact on blood glucose control for those with diabetes; anticipate periodic adjustments. Assess and reinforce correct inhaler technique frequently. Promote physical activity and use of energy conservation and activity-pacing techniques; assess and monitor fall risk. Facilitate referral to pulmonary rehabilitation for awzozkoor-civcljebs-uzfurb training, improved exercise capacity, mood and quality of life; address barriers to participation. Promote use of breathing and cough techniques, such as inspiratory muscle training, pursed-lip breathing, diaphragmatic breathing, pranayama yoga breathing or licea cough to clear mucus and relieve shortness of breath. Screen for SANDRA (obstructive sleep apnea); prepare patient for polysomnography based on risk and presentation. Prepare patient for use of long-term oxygen and noninvasive ventilation to relieve hypercapnia, hypoxemia, SANDRA and to reduce work of breathing. Screen for malnutrition risk factors, such as unintentional weight loss, micronutrient deficiencies and poor oral intake; if identified, refer to dietitian; consider drink supplement, multivitamin and mineral supplements. Prepare patient with worsening disease for surgical intervention that may include bronchoscopy, lung volume reduction surgery, bullectomy or lung transplantation. Notes: Medical Devices Implanted Type Area Mitochondrial Disorders Counselor Device Identifier Shelf Expiration Date Model / Serial / Lot Clip 360 Resolution 235cm - [id number] Implanted:Qty: 2 on 07/20/2017 by Hua Daily DO at [facility] IMPLANT N/A: Other OriginOil 04/15/2020 [id number] / [id number] / [id number] Description:DISTAL ASCENDING COLON Procedures Procedure Name Priority Date/Time Associated Diagnosis Comments CT - ABDOMEN/PELVIS 02/22/2024 1 2:00 AM LEARNING OFFICER VITAMIN D, 25 HYDROXY TOTAL Routine 01/25/2024 2:31 PM LEARNING OFFICER Osteoporosis without current pathological fracture, unspecified osteoporosis type Hypercalcemia PARATHYROID HORMONE PTH INTACT Routine 01/25/2024 2:31 PM LEARNING OFFICER Osteoporosis without current pathological fracture, unspecified osteoporosis type Hypercalcemia CMP (COMPREHENSIVE METABOLIC PANEL) Routine 01/25/2024 2:31 PM LEARNING OFFICER Osteoporosis without current pathological fracture, unspecified osteoporosis type Hypercalcemia UROLOGY CONSULT 01/14/2024 12:00 AM LEARNING OFFICER [facility] BONE DENSITOMETRY AXIAL SKELETON Routine 11/07/2023 1:18 PM CDT Postmenopausal HEMOGLOBIN A1C W/ ESTIMATED GLUCOSE Today 07/18/2023 3:07 PM CDT Non-insulin dependent type 2 diabetes mellitus (HCC) [facility] SCREENING BILATERAL DIGITAL W CAD Routine 10/12/2021 3:18 PM CDT Encounter for screening mammogram for malignant neoplasm of breast HM DILATED EYE EXAM Routine 06/12/2017 HEPATITIS C ANTIBODY Routine 02/22/2016 from Last 3 Months or Most Recently Relevant to Health Maintenance Results * CT - ABDOMEN/PELVIS (02/22/2024 12:00 AM LEARNING OFFICER) 02/22/2024 us Provider Scan IMG CT ORDERABLES Final Result SCAN * VITAMIN D, 25 HYDROXY TOTAL (01/25/2024 2:31 PM LEARNING OFFICER) VITAMIN D, 25 HYDROX 37.7 ng/mL 01/25/2024 3:37 PM LEARNING OFFICER [facility] Blood Venipuncture / Unknown 01/25/2024 2:31 PM LEARNING OFFICER 01/25/2024 2:48 PM LEARNING OFFICER Narrative [facility] - 01/25/2024 3:37 PM LEARNING OFFICER Published reference ranges for Vitamin D vary depending on time and place and method of testing, and on patient's age, sex, ethnicity and levels of other measured analytes such as parathormone, calcium and phosphorus. The result should be evaluated in conjunction with clinical findings and suspicions. [facility] Clinical Practice Guidelines: Status Vitamin D levels (ng/mL) Deficient <=20 At risk of inadequacy 21-29 Sufficient 30-100 Centers of Disease Control and Prevention Guidelines: Status Vitamin D levels (ng/mL) Deficient <13 At risk of inadequacy 13-19 Sufficient 20-50 Possibly harmful >50 References: [facility] [employer], 2010 Dietary reference intakes for calcium and vitamin D. Sheets [place]: The National Academies Press. Deni M, Wilfredo N, Belkis العراقي, et al., Evaluation, treatment, and prevention of Vitamin D deficiency: an Endocrinology Clinical Practice Guideline. JCEM 2011 96: 7 3958-1154. Roxana A, Wilton C, Juan D, et al., Vitamin D Status: [place], 6971-1562, [facility] data brief, no. 59, MD Mel: National Center for Health Statistics. 2010. us Chetan Do MD CHEMISTRY ORDERABLES Final Resul t [facility] [address] [place] [address] * (ABNORMAL) PARATHYROID HORMONE PTH INTACT (01/25/2024 2:31 PM LEARNING OFFICER) PTH INTACT 220(H) 13 - 85 pg/mL 01/25/2024 3:20 PM LEARNING OFFICER [facility] Blood Venipuncture / Unknown 01/25/2024 2:31 PM LEARNING OFFICER 01/25/2024 2:48 PM LEARNING OFFICER us Chetan Do MD CHEMISTRY ORDERABLES Final Resul t [facility] [address] [place] [address] * (ABNORMAL) CMP (COMPREHENSIVE METABOLIC PANEL) (01/25/2024 2:31 PM LEARNING OFFICER) Pathologist [facility] SODIUM 143 136 - 145 mmol/L 01/25/2024 3:16 PM LEARNING OFFICER [facility] POTASSIUM 3.9 3.5 - 5.1 mmol/L 01/25/2024 3:16 PM LEARNING OFFICER [facility] CHLORIDE 96(L) 98 - 107 mmol/L 01/25/2024 3:16 PM [facility] CO2, VENOUS 38(H) 22 - 30 mmol/L 01/25/2024 3:16 PM LEARNING OFFICER [facility] ANION GAP 12.9 <18.0 mmol/L 01/25/2024 3:16 PM LEARNING OFFICER [facility] GLUCOSE 130(H) 70 - 99 mg/dL 01/25/2024 3:16 PM [facility] BUN 20 10 - 20 mg/dL 01/25/2024 3:16 PM [facility] CREATININE, BLOOD 1.01(H) 0.60 - 1.00 mg/dL 01/25/2024 3:16 PM [facility] BUN/CREATININE RATIO 20 12 - 20 ratio 01/25/2024 3:16 PM [facility] TOTAL PROTEIN 7.1 6.3 - 8.2 g/dL 01/25/2024 3:16 PM LEARNING OFFICER [facility] ALBUMIN 4.3 3.5 - 5.0 g/dL 01/25/2024 3:16 PM [facility] A/G RATIO 1.5 1.0 - 2.2 01/25/2024 3:16 PM [facility] CALCIUM 10.7(H) 8.7 - 10.5 mg/dL 01/25/2024 3:16 PM [facility] T BILI 0.4 0.2 - 1.2 mg/dL 01/25/2024 3:16 PM [facility] SGOT (AST) 14 5 - 34 U/L 01/25/2024 3:16 PM [facility] SGPT (ALT) 13 0 - 55 U/L 01/25/2024 3:16 PM [facility] ALKALINE PHOSPHATASE 88 40 - 150 U/L 01/25/2024 3:16 PM [facility] IS THE PATIENT REQUIRED TO BE FASTING? No 01/25/2024 3:16 PM [facility] GFR, ESTIMATED 58(L) >=60 01/25/2024 3:16 PM [facility] Comment: Creatinine Clearance is the preferred criteria for selecting drug dose adjustments in renally impaired patients. The GFR is provided as additional pertinent clinical information. GFR is reported in mL/min/1.73 sq m. Calculation based on the Chronic Kidney Disease Epidemiology Collaboration (CKD- EPI) equation refit without adjustment for race. GFR, EST. >60 >=60 024 3:16 PM [facility] GFR, EST. NONAFRICAN 53(L) >=60 01/25/2024 3:16 PM [facility] Blood Venipuncture / Unknown 01/25/2024 2:31 PM LEARNING OFFICER 01/25/2024 2:47 PM LEARNING OFFICER us Chetan Do MD CHEMISTRY ORDERABLES Final Resul t [facility] [address] [facility] [place] [address] * UROLOGY CONSULT (01/14/2024 12:00 AM LEARNING OFFICER) 01/14/2024 us Provider Scan GENERIC SCAN ORDERS CONSULT Jacqueline l Result SCAN * [facility] BONE DENSITOMETRY AXIAL SKELETON (11/07/2023 1:18 PM CDT) Anatomical Region Laterality Modality BODY N/A Computed Radiogr aphy 11/07/2023 1:41 PM CDT Impressions 11/07/2023 1:44 PM CDT IMPRESSION: Osteoporosis. REFERENCE: Bone mineral density: T-Score: Normal (T-score above or = -1.0) Low bone mass (T-score between -1.0 and -2.5) replaces the previously used term osteopenia Osteoporosis (T-score = or below -2.5) Z-Score: Within the expected range for age (Z-score above -2.0) Below the expected range for age (Z-score is -2.0 or below) Please see below follow up recommendations. Medical evaluation for secondary causes of low bone mineral density may be appropriate. FRAX is a World Health Organization validated fracture risk assessment tool that calculates a person's 10 year probability of a major osteoporosis related fracture and hip fracture. According to the National Osteoporosis Foundation guidelines, postmenopausal women and men age 50 or older with low bone mass and a 10 year probability of a major osteoporosis related fracture = or greater than 20% or a 10 year probability of a hip fracture = or greater than 3% should be considered for pharmacological treatment for the prevention of osteoporosis. For further information, including treatment recommendations, please refer to the 2019 ISCD Official Positions (http://www.iscd.org) and the NOF's Clinician's Guide to Prevention and Treatment of Osteoporosis (http://www.nof.org/professionals/clinical-guidelines) Narrative 11/07/2023 1:44 PM CDT EXAM DESCRIPTION: [facility] BONE DENSITOMETRY AXIAL SKELETON REASON FOR STUDY: 73 y/o year old F with given history of: Post menopausal status. History secondary osteoporosis and COPD. Patient takes a multivitamin. Mitochondrial Disorders Counselor/Model: Dialective (S/N [id number]) CLINICAL INFORMATION: Current height: 60 inches Maximum height: 63 inches Weight: 231 pounds Risk factors: Secondary osteoporosis COMPARISON: 10/12/2021 FINDINGS: AP LUMBAR SPINE L1-L4: Total BMD is 1.246 g/cm2 T-score is 0.4 This is a 3.9% decrease in comparison to prior exam which is statistically significant. LEFT HIP: Total BMD is 0.786 g/cm2 T-score is -1.8 This is 6.8% decrease in comparison to prior exam which is statistically significant. Femoral neck BMD is 0.641 g/cm2 T-score is -2.9 FRAX: FRAX not reported due to T-scores of hip, femoral neck and/or spine being at or below -2.5 (Osteoporosis). THIS IS AN ELECTRONICALLY VERIFIED FINAL REPORT 11/07/2023 1:41 PM - Electronically signed by Melissa Crowe M.D. TW: TW Report ID: [id number] Reading Location: [place] [address] Procedure Note Melissa Crowe MD - 11/07/2023 EXAM DESCRIPTION: [facility] BONE DENSITOMETRY AXIAL SKELETON REASON FOR STUDY: 73 y/o year old F with given history of: Post menopausal status. History secondary osteoporosis and COPD. Patient takes a multivitamin. Mitochondrial Disorders Counselor/Model: Dialective (S/N [id number]) CLINICAL INFORMATION: Current height: 60 inches Maximum height: 63 inches Weight: 231 pounds Risk factors: Secondary osteoporosis COMPARISON: 10/12/2021 FINDINGS: AP LUMBAR SPINE L1-L4: Total BMD is 1.246 g/cm2 T-score is 0.4 This is a 3.9% decrease in comparison to prior exam which is statistically significant. LEFT HIP: Total BMD is 0.786 g/cm2 T-score is -1.8 This is 6.8% decrease in comparison to prior exam which is statistically significant. Femoral neck BMD is 0.641 g/cm2 T-score is -2.9 FRAX: FRAX not reported due to T-scores of hip, femoral neck and/or spine being at or below -2.5 (Osteoporosis). THIS IS AN ELECTRONICALLY VERIFIED FINAL REPORT 11/07/2023 1:41 PM - Electronically signed by Melissa Crowe M.D. TW: TW Report ID: [id number] Reading Location: [id number] IMPRESSION: Osteoporosis. REFERENCE: Bone mineral density: T-Score: Normal (T-score above or = -1.0) Low bone mass (T-score between -1.0 and -2.5) replaces the previously used term osteopenia Osteoporosis (T-score = or below -2.5) Z-Score: Within the expected range for age (Z-score above -2.0) Below the expected range for age (Z-score is -2.0 or below) Please see below follow up recommendations. Medical evaluation for secondary causes of low bone mineral density may be appropriate. FRAX is a World Health Organization validated fracture risk assessment tool that calculates a person's 10 year probability of a major osteoporosis related fracture and hip fracture. According to the National Osteoporosis Foundation guidelines, postmenopausal women and men age 50 or older with low bone mass and a 10 year probability of a major osteoporosis related fracture = or greater than 20% or a 10 year probability of a hip fracture = or greater than 3% should be considered for pharmacological treatment for the prevention of osteoporosis. For further information, including treatment recommendations, please refer to the 2019 ISCD Official Positions (http://www.iscd.org) and the NOF's Clinician's Guide to Prevention and Treatment of Osteoporosis (http://www.nof.org/professionals/clinical-guidelines) us Nicolas Greer MD IMG DEXA ORDERABLES Final R esult * HEMOGLOBIN A1C W/ ESTIMATED GLUCOSE (07/18/2023 3:07 PM CDT) [facility] HGB-A1C 5.9 4.0 - 6.0 % 07/18/2023 4:01 PM CDT [facility] Est Average Glucose 122.6 mg/dL 07/18/2023 4:01 PM CDT [facility] Blood Venipuncture / Unknown 07/18/2023 3:07 PM CDT 07/18/2023 3:07 PM CDT Narrative [facility] - 07/18/2023 4:01 PM CDT HEMOGLOBIN A1C: DIABETIC PATIENTS: WELL-CONTROLLED: 6.2 - 7.0 INTERMEDIATE WELL-CONTROLLED: 7.0 - 9.0 POORLY-CONTROLLED: >9.0 us Nicolas Greer MD CHEMISTRY ORDERABLES Final Result [facility] [address] [place] [address] * CAR[facility]N SCREENING BILATERAL DIGITAL W CAD (10/12/2021 3:18 PM CDT) Anatomical Region Laterality Modality breast Bilateral Mammography 10/12/2021 2:06 PM CDT Narrative 10/12/2021 5:52 PM CDT - [facility] SCREENING BILATERAL DIGITAL W CAD BILATERAL DIGITAL SCREENING MAMMOGRAM WITH CAD WITH MEDIOLATERAL OBLIQUE CRANIOCAUDAL: 10/12/2021 The study was acquired using digital technology and interpreted from soft copy. Current study was also evaluated with ICAD version 7.2. CLINICAL: Routine screening. Patient has no complaints. Patient has history of thymus cancer. Mother with ovarian cancer. COMPARISONS: Comparison is made to exams dated: 03/22/2015 [facility], 12/15/2013, and 09/19/2012 . BREAST TISSUE:There are scattered fibroglandular densities in both breasts. FINDINGS: No significant masses, calcifications, or other findings are seen in either breast. There has been no significant interval change. IMPRESSION: BI-RAD 1 NEGATIVE There is no mammographic evidence of malignancy. A 1 year screening mammogram is recommended. A letter will be sent to the patient with these results. The patient will be entered into a reminder system with a target due date of 1 year for her next screening exam. Electronically signed by: Zelalem fox/justice:10/12/2021 17:06:55 Physician/Allergy/Immunology(s): Dandy Cervantes)(Kevin), [facility] letter sent: Normal Exam Reading location: [place] BI-RADS: 1 Negative Procedure Note Zelalem Gonzalez MD - 10/12/2021 - CARLYN SCREENING BILATERAL DIGITAL W CAD BILATERAL DIGITAL SCREENING MAMMOGRAM WITH CAD WITH MEDIOLATERAL OBLIQUE CRANIOCAUDAL: 10/12/2021 The study was acquired using digital technology and interpreted from soft copy. Current study was also evaluated with ICAD version 7.2. CLINICAL: Routine screening. Patient has no complaints. Patient has history of thymus cancer. Mother with ovarian cancer. COMPARISONS: Comparison is made to exams dated: 03/22/2015 [facility], 12/15/2013, and 09/19/2012 . BREAST TISSUE:There are scattered fibroglandular densities in both breasts. FINDINGS: No significant masses, calcifications, or other findings are seen in either breast. There has been no significant interval change. IMPRESSION: BI-RAD 1 NEGATIVE There is no mammographic evidence of malignancy. A 1 year screening mammogram is recommended. A letter will be sent to the patient with these results. The patient will be entered into a reminder system with a target due date of 1 year for her next screening exam. Electronically signed by: Zelalem Gonzalez M.D. /penrad:10/12/2021 17:06:55 Physician/Allergy/Immunology(s): Luis Carlos Cervantes(Sasha)(M), [facility] letter sent: Normal Exam Reading location: [place] BI-RADS: 1 Negative us Keny Saldaña APRN, WOOD ENGRAVER IMG MAMMO ORDERA BLES Final Result * HM DILATED EYE EXAM (06/12/2017) us Not On File Provider PROCEDURE/MINOR SURGICAL OR DERABLES Final Result * HEPATITIS C ANTIBODY (02/22/2016) Blood specimen (specimen) us Dale Hale MD CHEMISTRY ORDERABLES Final Res ult from Last 3 Months or Most Recently Relevant to Health Maintenance Additional Health Concerns Active Problems Noted Date Diagnosed Date Disease Progression (COPD) 03/03/2024 Insurance MEDICARE [facility] Advance Directives Documents on File Type Date Recorded Patient Grab Operator Expl anation Other Advance Directive 04/25/2017 9:18 AM Steve palmer Living Will/ POA * Full Code (Latest Code Status on File) Date Activated Date Inactivated Comments 01/06/2022 11:28 AM 06/14/2023 6:57 AM * Full Code Date Activated Date Inactivated Comments 12/24/2021 10:06 PM 12/28/2021 5:58 PM CPR-Full Treatment: FULL ARREST: Attempt Resuscitation/CPR wit intubation and mechanical ventilation. PRE-ARREST: Use entire range of life support measures to stabilize the patient. * No CPR-Selective Treatment Date Activated Date Inactivated Comments 12/24/2021 6:10 PM 12/24/2021 10:06 PM No CPR - Selective Treatment: FULL ARREST: Do Not Attempt Resuscitation. PRE-ARREST: DO NOT USE INTUBATION OR MECHANICAL VENTILATION, but may use basic medical treatment like CPAP or BiPAP, antibiotics, IV fluids, oxygen, etc. Avoid care in ICU setting. Question Answer Comments Physician documentation made in notes? Yes * No CPR-Comfort Focused Treatment Date Activated Date Inactivated Comments 12/24/2021 5:25 PM 12/24/2021 6:10 PM No CPR - C omfort-Focused Treatment: FULL ARREST: Do Not Attempt Resuscitation. PRE-ARREST: Goal is to maximize comfort through symptom management and allow for a natural . Hospitalization is not preferred unless comfort can't be established elsewhere. Question Answer Comments Physician documentation made in notes? Yes * Full Code Date Activated Date Inactivated Comments 09/14/2021 8:20 AM 12/24/2021 12:21 PM Healthcare Agents on File Name Relationship Healthcare Agent Relationship Communication Steve Burrows Spouse Healthcare POA Care Teams Hunting Sales Leader Relationship Specialty Start Date End Date Nicolas Greer MD [address] [address] PCP - General Family Medicine 09/08/21 Ariel Christiansen MD Consulting Physician Cardiovascular Disease - Cardiology 07/19/16 [place] [id number] [facility] [address] [place] [id number] Painting Instructor Pulmonary Disease 06/18/20 Keny Saldaña APRN, WOOD ENGRAVER #[address] [address] Nurse Practitioner Advanced Practice Nurse 09/08/21 Yamel Kurtz III, MD [address] [place] [address] Consulting Physician Urology 09/11/22 Raghu Green MD [address] [place] [phone] Consulting Physician Pulmonary Disease 01/04/22 Warren Osborn MD #[address] [address] Consulting Physician Colon and Rectal Surgery 05/21/23 Ale Spain RN [place] Nurse Front Office Agent 09/05/23 Chetan Do MD #[address] [phone] Consulting Physician Endocrinology 01/23/24
--- OUTSIDE RECORDS SUMMARY | 2024-03-24 13:00 | XMS_ITS | Clinical Summary ---
Author Organization [facility] Facility Address [address] [address] Care Team Providers Care Experimental Psychologist Name Role Phone Nicolas Greer MD MPH Primary Care Provider [phone] Allergies No known active allergies Medications albuterol (2.5 MG/3ML) 0.083% nebulizer solution Active allopurinol (ZYLOPRIM) 100 MG tablet Take 1 tablet by mouth 1 (one) time each day Active ipratropium HFA (Atrovent HFA) 17 MCG/ACT inhaler 1 puff by Other route Active levothyroxine sodium (TIROSINT) 137 MCG capsule Take 137 mcg by mouth 1 (one) time each day Active lovastatin (MEVACOR) 20 MG tablet Take 20 mg by mouth 1 (one) time each day Active benzonatate (TESSALON) 100 MG capsule Take 100 mg by mouth 3 (three) times a day if needed for cough Do not crush or chew. Active fluticasone (FLONASE) 50 MCG/ACT nasal spray Administer 1 spray into each nostril 1 (one) time each day Active folic acid (FOLVITE) 1 MG tablet Take 1 mg by mouth 1 (one) time each day Active furosemide (LASIX) 20 MG tablet Take 20 mg by mouth in the morning and 20 mg in the evening. Active Budeson-Glycop yrrol-Formoter ol (Breztri Aerosphere) 160-9-4.8 MCG/ACT aerosol Inhale Active oxybutynin XL (DITROPAN-XL) 5 MG 24 hr tablet Take 5 mg by mouth 1 (one) time each day Do not crush, chew, or split. Active potassium chloride (KLOR-CON M10) 10 MEQ CR tablet Take 10 mEq by mouth 1 (one) time each day Do not crush or chew. Active rOPINIRole (REQUIP) 0.25 MG tablet Take 0.25 mg by mouth in the morning and 0.25 mg in the evening and 0.25 mg before bedtime. Active sertraline (ZOLOFT) 50 MG tablet Take 50 mg by mouth 1 (one) time each day Active torsemide (DEMADEX) 20 MG tablet Take 20 mg by mouth 1 (one) time each day Active traMADol (ULTRAM) 50 MG tablet Take 50 mg by mouth every 6 (six) hours if needed for moderate pain Active cyancobalamine (VITAMIN B-12) 500 MCG tablet Take 500 mcg by mouth 1 (one) time each day Active magnesium oxide 400 (240 Mg) MG tablet TAKE ONE TABLET BY MOUTH DAILY #1000 90 tablet 1 4 Active trospium (SANCTURA) 20 MG tablet Take 20 mg by mouth in the morning and 20 mg in the evening. Active magnesium oxide (MAG-OX) 400 MG tablet TAKE ONE TABLET BY MOUTH DAILY #1000 90 tablet 1 4 Active predniSONE (DELTASONE) 10 MG tablet TAKE 5 TABLETS BY MOUTH ON DAY 1. THEN DECREASE DOSE BY 1 TABLET DAILY UNTIL GONE 15 tablet 1 4 Active cinacalcet (SENSIPAR) 30 MG tablet Take 1 tablet (30 mg total) by mouth 1 (one) time each day 90 tablet 2 5 Active cinacalcet (SENSIPAR) 30 MG tablet Take 1 tablet (30 mg total) by mouth 1 (one) time each day 90 tablet 1 4 02/24/19 25 Discontinu ed(Reorder (does not appear on AVS)) Active Problems Problem Noted Date Diagnosed Date Acute nontraumatic kidney injury 03/24/2022 Chronic kidney disease stage 2 03/24/2022 Essential hypertension 03/24/2022 Hypercalcemia 03/24/2022 Severe chronic obstructive pulmonary disease Type 2 diabetes mellitus without complication Encounters Date Type Department Care Team Description 02/25/2024 Refill [facility], [facility] [address] [place] [address] Cathy Martin MA 01/17/2024 Refill [facility], [facility] [address] [place] [phone] Jorge Rabago MD from Last 3 Months Family History Medical History Relation Comments Cancer Mother Diabetes Mother Relation Status Comments Father Mother Social History Tobacco Use Types Packs/Day Years Used Date Smoking Tobacco: Former Cigarettes Tobacco Cessation:Counseling Given: Not Answered Alcohol Use Standard Drinks/Week Comments Never 0 (1 standard drink = 0.6 oz pur e alcohol) Comments Unknown Sex and Gender Information Value Date Recorded Sex Assigned at Not on file Legal Sex Female 6:09 PM EDT Gender Identity Not on file Sexual Orientation Not on file Last Filed Vital Signs Vital Sign Reading Time Taken Comments Blood Pressure 99/70 10/30/2023 3:10 PM CDT Pulse 81 10/30/2023 3:10 PM CDT Temperature 36.7 C (98 F) 10/30/2023 3:10 PM CDT Respiratory Rate 17 10/30/2023 3:10 PM CDT Oxygen Saturation 89% 10/30/2023 3:10 PM CDT Inhaled Oxygen Concentration - - Weight 103 kg (226 lb) 10/30/2023 3:10 PM CDT Height 167.6 cm (5' 6 ) 10/30/2023 3:10 PM CDT Body Mass Index 36.48 10/30/2023 3:10 PM CDT Plan of Treatment Upcoming Encounters Date Type Department Care Team (Late st Contact Info) Description 04/01/2024 4:00 PM SADDLE MAKER Office Visit [facility], [facility] [address] [place] [address] Jorge Rabago MD [address] [place] [address] Health Maintenance Due Date Last Done Comments Diabetes: Ophthalmology Exam 04/27/2019 Diabetes: Pedal Pulse Checked 04/27/2019 Diabetes: Sensory Foot Exam 04/27/2019 Diabetes: Visual Foot Exam 04/27/2019 Influenza Vaccine (#1) 2023 2, 12/20/2020, 10/14/2019, Additional history exists Diabetes: Hemoglobin A1C 10/18/2023 024, 12/25/2021, 03/22/2015 Pneumococcal Vaccine: 65+ Years Completed 11/01/2016, 11/17/2015 Hepatitis B Vaccine Aged Out No longe r eligible based on patient's age to complete this topic Insurance MEDICARE [facility] Advance Directives Documents on File Type Date Recorded Patient Tetryl Screen Operator Expl anation Advance Care Planning 08/24/2022 5:10 PM Care Teams Experimental Psychologist Relationship Specialty Start Date End Date Nicolas Greer MD MPH [address] [place] [id number] PCP - General Family Medicine 01/04/22
--- OUTSIDE RECORDS SUMMARY | 2024-03-24 13:00 | XMS_ITS | Encounter Summary ---
Author Organization [facility] Address [address] [place] [address] Phone Care Team Providers Care Internet Developer Name Role Phone Ariel Christiansen MD Unavailable [phone] Parmjit Vogel MD Unavailable [phone] Nicolas Greer MD Primary Care Provider [phone] Keny Saldaña APRN, HEAD OF TRANSPORT LOGISTICS Unavailable Cristian Dewitt MD Unavailable Unaruslani Ale Richard RN Unavailable Unavailable Ale Spain RN Unavailable Unavailable Jerardo MCCANN MD, Courtney Unavailable [phone] Raghu Geren MD Unavailable Warren Osborn MD Unavailable Ale Spain RN Unavailable Unavailable Chetan Do MD Unavailable Encounter Details Date Type Department Care Team (Late st Contact Info) Description 01/02/2022 Lab Requisition [facility] [address] [place] [phone] Nicolas Greer MD #[address] [address] Acute and chronic respiratory failure with hypoxia (HCC) Social History Tobacco Use Types Packs/Day Years Used Date Smoking Tobacco: Former Cigarettes 0.5 50 Smokeless Tobacco: Never Alcohol Use Standard Drinks/Week Comments No 0 (1 standard drink = 0.6 oz pur e alcohol) PHQ-2 Answer Date Recorded PHQ-2 Score 0 11/05/2018 Education Answer Date Recorded What is the highest level of school you have completed or the highest degree you have received? 12th grade 08/03/2021 Sexually Active Control Partners Comments Not Currently Comments No Sex and Gender Information Value Date Recorded Sex Assigned at Not on file Legal Sex Female 7:47 PM CDT Gender Identity Not on file Sexual Orientation Not on file Occupation Industry Job Start Date Job End Date [employer] Not on file Not on file Not on file COVID-19 Exposure Response Date Recorded In the last 10 days, have yo u been in contact with someone who was confirmed or suspected to have Coronavirus/COVID-19? No / Unsure 01/05/2022 8:15 AM CAR SALESMAN documented as of this encounter Plan of Treatment Upcoming Encounters Date Type Department Care Team (Late st Contact Info) Description 04/24/2024 2:00 PM CDT Office Visit [facility] - Endocrinology - [place] [address]2 [place] [phone] Chetan Do MD #[address] [address] 08/14/2024 1:00 PM CDT Office Visit [facility] - Pulmonology & Sleep Medicine [facility] #2 [place] [phone] Raghu Green MD #2 [place] [address] 09/17/2024 1:00 PM CDT [facility] #2 [place] [address] Nicolas Greer MD #[address] [address] documented as of this encounter Procedures Procedure Name Priority Date/Time Associated Diagnosis Comments CBC WITH AUTO DIFFERENTIAL Routine 01/02/2022 9:30 AM CAR SALESMAN Acute and chronic respiratory failure with hypoxia (HCC) PHOSPHORUS (PO4) Routine 01/02/2022 9:30 AM CAR SALESMAN Acute and chronic respiratory failure with hypoxia (HCC) MAGNESIUM (MG) Routine 01/02/2022 9:30 AM CAR SALESMAN Acute and chronic respiratory failure with hypoxia (HCC) COMPLETE BLOOD COUNT (CBC) WITH DIFF Routine 01/02/2022 9:30 AM CAR SALESMAN Acute and chronic respiratory failure with hypoxia (HCC) BASIC METABOLIC PANEL W/ CALCIUM TOTAL Routine 01/02/2022 9:30 AM CAR SALESMAN Acute and chronic respiratory failure with hypoxia (HCC) documented in this encounter Results * (ABNORMAL) CBC WITH AUTO DIFFERENTIAL (01/02/2022 9:30 AM CAR SALESMAN) WBC 12.96(H) 4.00 - 12.00 10(3)/mcL 01/02/2022 11:06 AM CAR SALESMAN [facility] RBC 4.13 3.80 - 5.30 10(6)/mcL 01/02/2022 11:06 AM CAR SALESMAN [facility] HEMOGLOBIN (HGB) 12.5 12.0 - 15.8 g/dL 01/02/2022 11:06 AM CAR SALESMAN [facility] HEMATOCRIT (HCT) 41.1 36.0 - 47.0 % 01/02/2022 11:06 AM CAR SALESMAN [facility] MCV 99.5(H) 82.0 - 96.0 fL 01/02/2022 11:06 AM CAR SALESMAN [facility] MCH 30.3 26.0 - 34.0 pg 01/02/2022 11:[address] [facility] MCHC 30.4(L) 31.0 - 36.0 g/dL 01/02/2022 11:[address] [facility] PLATELET COUNT 353 140 - 440 10(3)/Health system 01/02/2022 11:[address] [facility] RDW 13.2 11.8 - 15.5 % 01/02/2022 11:[address] [facility] MPV 9.9 9.7 - 12.4 fL 01/02/2022 11:[address] [facility] NEUTROPHILS 74.8(H) 47.0 - 73.0 % 01/02/2022 11:[address] [facility] LYMPHOCYTES 16.4(L) 18.0 - 42.0 % 01/02/2022 11:[address] [facility] MONOCYTES 7.8 4.0 - 12.0 % 01/02/2022 11:[address] [facility] EOSINOPHILS 0.7 0.0 - 5.0 % 01/02/2022 11:[address] [facility] BASOPHILS 0.3 0.0 - 1.0 % 01/02/2022 11:[address] [facility] ABSOLUTE NEUTROPHILS 9.69(H) 1.60 - 7.70 10(3)/Health system 01/02/2022 11:[address] [facility] ABSOLUTE LYMPHOCYTES 2.13 1.30 - 3.20 10(3)/Health system 01/02/2022 11:[address] [facility] ABSOLUTE MONOCYTES 1.01(H) 0.20 - 1.00 10(3)/Health system 01/02/2022 11:[address] [facility] ABSOLUTE EOSINOPHIL 0.09 0.00 - 0.40 10(3)/Health system 01/02/2022 11:[address] [facility] ABSOLUTE BASOPHILS 0.04 0.00 - 0.10 10(3)/Health system 01/02/2022 11:06 AM CAR SALESMAN [facility] NRBC PER 100 WBC 0 01/03/20 11:06 AM CAR SALESMAN [facility] Blood No Phlebotomy Charged / Unknown 01/02/2022 9:30 AM CAR SALESMAN 01/02/2022 11:02 AM CAR SALESMAN Nicolas Greer MD HEMATOLOGY ORDERABLES Final Result [facility] #1 [place] [address] * (ABNORMAL) MAGNESIUM (MG) (01/02/2022 9:30 AM CAR SALESMAN) MAGNESIUM 1.6(L) 1.8 - 2.5 mg/dL 01/02/2022 11:27 AM CAR SALESMAN [facility] Blood No Phlebotomy Charged / Unknown 01/02/2022 9:30 AM CAR SALESMAN 01/02/2022 11:02 AM CAR SALESMAN Nicolas Greer MD CHEMISTRY ORDERABLES Final Result Performing Organization Address City/[facility]/ZIP Co de Phone Number [facility] [address] [place] [address] * PHOSPHORUS (PO4) (01/02/2022 9:30 AM CAR SALESMAN) PHOSPHORUS 2.8 2.4 - 4.7 mg/dL 01/02/2022 11:27 AM CAR SALESMAN [facility] Blood No Phlebotomy Charged / Unknown 01/02/2022 9:30 AM CAR SALESMAN 01/02/2022 11:02 AM CAR SALESMAN Nicolas Greer MD CHEMISTRY ORDERABLES Final Result Performing Organization Address City/[facility]/ZIP Co de Phone Number [facility] [address] [place] [address] * (ABNORMAL) BASIC METABOLIC PANEL W/ CALCIUM TOTAL (01/02/2022 9:30 AM [facility]) SODIUM 138 136 - 144 mmol/L 01/02/2022 11:[address] [facility] POTASSIUM 4.2 3.5 - 5.1 mmol/L 01/02/2022 11:[address] [facility] CHLORIDE 92(L) 100 - 110 mmol/L 01/02/2022 11:[address] [facility] CO2, VENOUS 40(H) 22 - 32 mmol/L 01/02/2022 11:[address] [facility] ANION GAP 10.2 8.0 - 20.0 mmol/L 01/02/2022 11:[address] [facility] GLUCOSE 129(H) 70 - 99 mg/dL 01/02/2022 11:[address] [facility] BUN 24(H) 8 - 23 mg/dL 01/02/2022 11:[address] [facility] CREATININE, BLOOD 1.06 0.60 - 1.10 mg/dL 01/02/2022 11:[address] [facility] BUN/CREATININE RATIO 23(H) 12 - 20 ratio 01/02/2022 11:[address] [facility] CALCIUM 12.4(HH) 8.9 - 10.3 mg/dL 01/02/2022 11:[address] [facility] GFR, ESTIMATED 55(L) >=60 01/02/2022 11:[address] [facility] Comment: Creatinine Clearance is the preferred criteria for selecting drug dose adjustments in renally impaired patients. The GFR is provided as additional pertinent clinical information. GFR is reported in mL/min/1.73 sq m. Calculation based on the Chronic Kidney Disease Epidemiology Collaboration (CKD- EPI) equation refit without adjustment for race. GFR, EST. >60 >=60 022 11:[address] [facility] GFR, EST. NONAFRICAN 51(L) >=60 01/02/2022 11:27 AM CAR SALESMAN [facility] Blood No Phlebotomy Charged / Unknown 01/02/2022 9:30 AM CAR SALESMAN 01/02/2022 11:02 AM CAR SALESMAN Nicolas Greer MD CHEMISTRY ORDERABLES Final Result [facility] #1 [place] [address] documented in this encounter Visit Diagnoses Diagnosis Acute and chronic respiratory failure with hypoxia (HCC) Acute and chronic respiratory failure documented in this encounter Additional Health Concerns Assessment Noted Time PHQ-9 Depression Total Score: 0 02/12/19 20 10:45 AM CAR SALESMAN documented as of this encounter Care Teams Internet Developer Relationship Specialty Start Date End Date Nicolas Greer MD #[address] [address] PCP - General Family Medicine 09/08/21 Ariel Christiansen MD Consulting Physician Cardiovascular Disease - Cardiology 07/19/16 [place] [id number] [address] Home Care Administrator Pulmonary Disease 06/18/20 Keny Saldaña, SEED COLLECTOR, HEAD OF TRANSPORT LOGISTICS #[address] [address] Nurse Practitioner Advanced Practice Nurse 09/08/21 Cristian Dewitt MD #[address] [address] Consulting Physician Cardiovascular Disease - Cardiology 10/06/21 02/07/24 Ale Spain, WALDO [place] Scrap Baler 03/15/22 02/12/23 Ale Spain, RN [place] Nurse Scrap Baler 03/15/22 02/13/23 Yamel Kurtz III, MD #2 [place] [address] Consulting Physician Urology 09/11/22 Raghu Green MD #2 [place] [phone] Consulting Physician Pulmonary Disease 01/04/22 Warren Osborn MD #[address] [address] Consulting Physician Colon and Rectal Surgery 05/21/23 Ale Spain RN [place] Nurse Scrap Baler 09/05/23 Chetan Do MD #[address] [phone] Consulting Physician Endocrinology 01/23/24 documented as of this encounter
--- OUTSIDE RECORDS SUMMARY | 2024-03-24 13:00 | XMS_ITS | Encounter Summary ---
Author Organization [facility] Address [address] [place] [address] Phone Care Team Providers Care Insecticide Supervisor Name Role Phone Ariel Christiansen MD Unavailable [phone] Parmjit Vogel MD Unavailable [phone] Nicolas Greer MD Primary Care Provider [phone] Keny Saldaña APRN, CLOUD INFRASTRUCTURE ARCHITECT Unavailable Cristian Dewitt MD Unavailable Ale Black RN Unavailable Unavailable Ale Spain RN Unavailable Unavailable Jerardo MCCANN MD, Courtney Unavailable [phone] Raghu Green MD Unavailable Warren Osborn MD Unavailable Ale Spain RN Unavailable Unavailable Chetan Do MD Unavailable Reason for Visit * Reason Comments Medication Refill Encounter Details Date Type Department Care Team (Late st Contact Info) Description 07/27/2022 Refill [facility] #2 [place] [address] Nicolas Greer MD #[address] [address] Medication Refill Social History Tobacco Use Types Packs/Day Years [...] Job Start Date Job End Date Retired [employer] Not on file Not on file Not on file COVID-19 Exposure Response Date Recorded In the last 10 days, have yo u been in contact with someone who was confirmed or suspected to have Coronavirus/COVID-19? No / Unsure 07/11/2022 1:14 PM CDT documented as of this encounter Miscellaneous Notes * Telephone Encounter - Nicolle Funk RN - 07/27/2022 2:25 PM CDT Medication warning Per nursing clinical judgement, provider to review and approve the medication(s) order(s) if appropriate. Requested Prescriptions Pending Prescriptions Disp Refills furosemide (LASIX) 20 MG Tablet [Pharmacy Med Name: FUROSEMIDE 20 MG TABLET] 90 Tablet 1 Sig: TAKE ONE TABLET BY MOUTH DAILY #1000 Diuretics Protocol Passed - 07/27/2022 8:45 AM Passed - Serum potassium on record in past 12 months POTASSIUM Date Value Ref Range Status 04/06/2022 3.4 (L) 3.5 - 5.1 mmol/L Final Passed - Serum sodium on record in past 12 months SODIUM Date Value Ref Range Status 04/06/2022 143 136 - 144 mmol/L Final Passed - Blood pressure on record in past 12 months Clinician-entered: BP Readings from Last 3 Encounters: 07/06/22 124/74 06/21/22 126/66 03/22/22 128/82 Patient-entered: No data recorded Passed - Visit with relevant provider in past 12 months or upcoming 90 days Recent Visits Date Type Provider Dept 07/18/22 Telemedicine Nicolas Greer MD [facility] 06/21/22 Office Visit Nicolas Greer MD [facility] 03/22/22 Office Visit Nicolas Greer MD [facility] 03/07/22 Telemedicine Nicolas Greer MD [facility] 02/13/22 Telemedicine Nicolas Greer MD [facility] 01/11/22 Telemedicine Nicolas Greer MD [facility] 01/09/22 Telemedicine Keny Saldaña APRN, CLOUD INFRASTRUCTURE ARCHITECT [facility] 12/19/21 Office Visit Nicolas Greer MD [facility] 09/08/21 Office Visit Keny Saldaña APRN, CLOUD INFRASTRUCTURE ARCHITECT [facility] 08/03/21 Telemedicine Nicolas Greer MD [facility] Showing recent visits within past 365 days and meeting all other requirements Future Appointments Date Type Provider Dept 09/21/22 Appointment Nicolas Greer MD [facility] Showing future appointments within next 90 days and meeting all other requirements Passed - GFR on record in past 12 months GFR, EST. NONAFRICAN Date Value Ref Range Status 04/06/2022 48 (L) >=60 Final rOPINIRole (REQUIP) 0.25 MG Tablet [Pharmacy Med Name: ROPINIROLE HCL 0.25 MG TABLET] 90 Tablet 1 Sig: TAKE ONE TABLET BY MOUTH NIGHTLY #0001 Antiparkinson Dopaminergics and COMT Protocol Passed - 07/27/2022 8:45 AM Passed - Visit with relevant provider in the past 9 months or upcoming 90 days Recent Visits Date Type Provider Dept 06/21/22 Office Visit Nicolas Greer MD [facility] 03/22/22 Office Visit Nicolas Greer MD [facility] 12/19/21 Office Visit Nicolas Greer MD [facility] Showing recent visits within past 270 days and meeting all other requirements Future Appointments Date Type Provider Dept 09/21/22 Appointment Nicolas Greer MD [facility] Showing future appointments within next 90 days and meeting all other requirements Passed - Blood pressure on record in past 12 months Clinician-entered: BP Readings from Last 3 Encounters: 07/06/22 124/74 06/21/22 126/66 03/22/22 128/82 Patient-entered: No data recorded Refused Prescriptions Disp Refills alendronate (FOSAMAX) 35 MG Tablet [Pharmacy Med Name: ALENDRONATE SODIUM 35 MG TAB] 12 Tablet 0 Sig: TAKE ONE TABLET BY MOUTH ONCE A WEEK Bone Density Regulators Protocol Failed - 07/27/2022 8:45 AM Failed - Active on medication list Passed - Visit with relevant provider in past 12 months or upcoming 90 days Recent Visits Date Type Provider Dept 07/18/22 Telemedicine Nicolas Greer MD [facility] 06/21/22 Office Visit Nicolas Greer MD [facility] 03/22/22 Office Visit Nicolas Greer MD [facility] 03/07/22 Telemedicine Nicolas Greer MD [facility] 02/13/22 Telemedicine Nicolas Greer MD [facility] 01/11/22 Telemedicine Nicolas Greer MD [facility] 01/09/22 Telemedicine Keny Saldaña APRN, MARY [facility] 12/19/21 Office Visit Nicolas Greer MD [facility] 09/08/21 Office Visit Keny Saldaña APRN, CLOUD INFRASTRUCTURE ARCHITECT [facility] 08/03/21 Telemedicine Nicolas Greer MD [facility] Showing recent visits within past 365 days and meeting all other requirements Future Appointments Date Type Provider Dept 09/21/22 Appointment Nicolas Greer MD [facility] Showing future appointments within next 90 days and meeting all other requirements Passed - Serum creatinine on record in past 12 months CREATININE - POCT Date Value Ref Range Status 04/06/2022 1.2 0.6 - 1.3 mg/dL Final CREATININE, BLOOD Date Value Ref Range Status 04/06/2022 1.11 (H) 0.60 - 1.10 mg/dL Final Passed - Serum calcium on record in past 12 months CALCIUM Date Value Ref Range Status 04/06/2022 11.2 (H) 8.9 - 10.3 mg/dL Final CALCIUM IONIZED Date Value Ref Range Status 02/15/2022 1.35 (H) 1.19 - 1.31 mmol/L Final * Telephone Encounter - Nicolle Funk RN - 07/27/2022 2:19 PM CDT Name from pharmacy: ALENDRONATE SODIUM 35 MG TAB Will file in chart as: alendronate (FOSAMAX) 35 MG Tablet The original prescription was discontinued on 02/03/2022 for duplicate therapy. Pt taking Folic acid - see telephone encounter 02/01/23 for medication management. documented in this encounter Plan of Treatment Upcoming Encounters Date Type Department Care Team (Late st Contact Info) Description 04/24/2024 2:00 PM CDT Office Visit [facility] - Endocrinology - [place] #2 [place] [phone] Chetan Do MD #[address] [phone] 08/14/2024 1:00 PM CDT Office Visit [facility] - Pulmonology & Sleep Medicine - [place] #2 [place] [phone] Raghu Green MD #2 [place] [address] 09/17/2024 1:00 PM CDT [facility] Family [facility] - [place] #2 [place] [address] Nicolas Greer MD #[address] [address] documented as of this encounter Visit Diagnoses Not on filedocumented in this encounter Additional Health Concerns Assessment Noted Time PHQ-9 Depression Total Score: 0 02/12/19 10:45 AM 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 documented as of this encounter Care Teams Insecticide Supervisor Relationship Specialty Start Date End Date Nicolas Greer MD #[address] [address] PCP - General Family Medicine 09/08/21 Ariel Christiansen MD Consulting Physician Cardiovascular Disease - Cardiology 07/19/16 [place] [address] [address] Open Hearth Helper Pulmonary Disease 06/18/20 Keny Saldaña APRN, CLOUD INFRASTRUCTURE ARCHITECT #[address] [address] Nurse Practitioner Advanced Practice Nurse 09/08/21 Cristian Dewitt MD #[address] [address] Consulting Physician Cardiovascular Disease - Cardiology 10/06/21 02/07/24 Ale Spain, RN [place] Bilingual Social Worker 03/15/22 02/12/23 Ale Spain, RN [place] Nurse Bilingual Social Worker 03/15/22 02/13/23 Yamel Kurtz III, MD #2 [place] [address] Consulting Physician Urology 09/11/22 Raghu Green MD #2 [place] [phone] Consulting Physician Pulmonary Disease 01/04/22 Warren Osborn MD #[address] [address] Consulting Physician Colon and Rectal Surgery 05/21/23 Ale Spain, RN [place] Nurse Bilingual Social Worker 09/05/23 Chetan Do MD #[address] [phone] Consulting Physician Endocrinology 01/23/24 documented as of this encounter
--- OUTSIDE RECORDS SUMMARY | 2024-03-24 13:00 | XMS_ITS | Encounter Summary ---
Author Organization [facility] Address [address] [place] [address] [place] [address] Phone Care Team Providers Care Senior Officer Name Role Phone Ariel Christiansen MD Unavailable [phone] Parmjit Vogel MD Unavailable [phone] Nicolas Greer MD Primary Care Provider [phone] Keny Saldaña APRN, TECHNICAL MAINTENANCE SPECIALIST Unavailable Cristian Dewitt MD Unavailable Ale Black RN Unavailable Unavailable Ale Spain RN Unavailable Unavailable Jerardo MCCANN MD, Courtney Unavailable [phone] Raghu Green MD Unavailable Warren Osborn MD Unavailable Ale Spain RN Unavailable Unavailable Chetan Do MD Unavailable Reason for Visit * Reason Comments Medication Refill Encounter Details Date Type Department Care Team (Late st Contact Info) Description 07/27/2022 Refill [facility] #2 [place] [address] Nicolas Greer MD #2 [facility] [address] [place] [address] Medication Refill Social History Tobacco Use Types [...] Job Start Date Job End Date Retired [employer] Not on file Not on file Not on file COVID-19 Exposure Response Date Recorded In the last 10 days, have yo u been in contact with someone who was confirmed or suspected to have Coronavirus/COVID-19? No / Unsure 07/11/2022 1:14 PM CDT documented as of this encounter Miscellaneous Notes * Telephone Encounter - Nicolle Funk RN - 07/28/2022 8:10 AM CDT Name from pharmacy: ALENDRONATE SODIUM 35 MG TAB Will file in chart as: alendronate (FOSAMAX) 35 MG Tablet The original prescription was discontinued on 02/03/2022 by Ivanna England RN for the following reason: Alternate therapy. documented in this encounter Plan of Treatment Upcoming Encounters Date Type Department Care Team (Late st Contact Info) Description 04/24/2024 2:00 PM CDT Office Visit [facility] - Endocrinology - [place] #2 [place] [phone] Chetan Do MD #2 [facility] [address] [place] [address] 08/14/2024 1:00 PM CDT Office Visit [facility] - Pulmonology & Sleep Medicine [facility] #2 [place] [address] Raghu Green MD #2 [place] [address] 09/17/2024 1:00 PM CDT Office Visit [facility] #2 [place] [address] Nicolas Greer MD #[address] [address] documented as of this encounter Visit Diagnoses Not on filedocumented in this encounter Additional Health Concerns Assessment Noted Time PHQ-9 Depression Total Score: 0 02/12/19 20 10:45 AM DUB ROOM ENGINEER documented as of this encounter Care Teams Senior Officer Relationship Specialty Start Date End Date Nicolas Greer MD #[address] [address] PCP - General Family Medicine 09/08/21 Ariel Christiansen MD Consulting Physician Cardiovascular Disease - Cardiology 07/19/16 [place] [id number] [address] [employer] Pulmonary Disease 06/18/20 Keny Saldaña APRN, TECHNICAL MAINTENANCE SPECIALIST #[address] [address] Nurse Practitioner Advanced Practice Nurse 09/08/21 Cristian Dewitt MD #[address] [address] Consulting Physician Cardiovascular Disease - Cardiology 10/06/21 02/07/24 Ale Spain, RN [place] Pressure Tester 03/15/22 02/12/23 Ale Spain, RN [place] Nurse Pressure Tester 03/15/22 02/13/23 Yamel Kurtz III, MD #[address] [place] [address] Consulting Physician Urology 09/11/22 Raghu Green MD #[address] [place] [phone] Consulting Physician Pulmonary Disease 01/04/22 Warren Osborn MD #[address] [address] Consulting Physician Colon and Rectal Surgery 05/21/23 Ale Spain, WALDO MD Nurse Pressure Tester 09/05/23 Chetan Do MD #[address] [phone] Consulting Physician Endocrinology 01/23/24 documented as of this encounter
--- OUTSIDE RECORDS SUMMARY | 2024-03-24 13:00 | XMS_ITS | Encounter Summary ---
Author Organization [facility] Address [address] [place] [address] [place] [address] Phone Care Team Providers Care Civil Engineering Professor Name Role Phone Ariel Christiansen MD Unavailable [phone] Parmjit Vogel MD Unavailable [phone] Nicolas Greer MD Primary Care Provider [phone] Keny Saldaña APRN, ROOF FIXER Unavailable Cristian Dewitt MD Unavailable Ale Black RN Unavailable Unavailable Ale Spain RN Unavailable Unavailable Jerardo MCCANN MD, Courtney Unavailable [phone] Raghu Green MD Unavailable Warren Osborn MD Unavailable Ale Spain RN Unavailable Unavailable Chetan Do MD Unavailable Reason for Visit * Reason Comments Medication Refill Encounter Details Date Type Department Care Team (Late st Contact Info) Description 03/22/2022 [facility]ill [facility] [place] [address] Nicolas Greer MD #[address] [address] Medication Refill Social History Tobacco Use Types [...] Job Start Date Job End Date Retired [employer] Not on file Not on file Not on file COVID-19 Exposure Response Date Recorded In the last 10 days, have yo u been in contact with someone who was confirmed or suspected to have Coronavirus/COVID-19? No / Unsure 03/22/2022 2:20 PM COMMUNITY MENTAL HEALTH WORKER documented as of this encounter Miscellaneous Notes * Telephone Encounter - Karoline Martinez RN - 03/22/2022 1:05 PM COMMUNITY MENTAL HEALTH WORKER Medication warning. Per nursing clinical judgement, provider to review and approve the medication(s) order(s) if appropriate. Requested Prescriptions Pending Prescriptions Disp Refills torsemide (DEMADEX) 20 MG Tablet [Pharmacy Med Name: TORSEMIDE 20 MG TABLET] 30 Tablet 0 Sig: TAKE ONE TABLET BY MOUTH DAILY Diuretics Protocol Passed - 03/22/2022 12:54 PM Passed - Serum potassium on record in past 12 months POTASSIUM Date Value Ref Range Status 02/15/2022 4.2 3.5 - 5.1 mmol/L Final Passed - Serum sodium on record in past 12 months SODIUM Date Value Ref Range Status 02/15/2022 139 136 - 144 mmol/L Final Passed - Blood pressure on record in past 12 months Clinician-entered: BP Readings from Last 3 Encounters: 02/27/22 132/80 02/23/22 124/80 02/15/22 118/56 Patient-entered: No data recorded Passed - Visit with relevant provider in past 12 months or upcoming 90 days Recent Visits Date Type Provider Dept 03/07/22 Telemedicine Nicolas Greer MD [facility] 02/13/22 Telemedicine Nicolas Greer MD [facility] 01/11/22 Telemedicine Nicolas Greer MD [facility] 01/09/22 Telemedicine Keny Saldaña APRN, ROOF FIXER [facility] 12/19/21 Office Visit Nicolas Greer MD [facility] 09/08/21 Office Visit Keny Saldaña APRN, ROOF FIXER [facility] 08/03/21 Telemedicine Nicolas Greer MD [facility] 07/21/21 Telemedicine Nicolas Greer MD [facility] 04/28/21 Telemedicine Nicolas Greer MD [facility] Showing recent visits within past 365 days and meeting all other requirements Today's Visits Date Type Provider Dept 03/22/22 Appointment Nicolas Greer MD [facility] Showing today's visits and meeting all other requirements Future Appointments No visits were found meeting these conditions. Showing future appointments within next 90 days and meeting all other requirements Passed - GFR on record in past 12 months GFR, EST. NONAFRICAN Date Value Ref Range Status 02/15/2022 >60 >=60 Final vitamin b-12 (CYANOCOBALAMIN) 100 MCG Tablet [Pharmacy Med Name: VITAMIN B-12 100 MCG TABLET] 90 Tablet 0 Sig: TAKE TWO TABLETS BY MOUTH DAILY There is no refill protocol information for this order UNITY MENTAL HEALTH WORKER documented in this encounter Plan of Treatment Upcoming Encounters Date Type Department Care Team (Late st Contact Info) Description 04/24/2024 2:00 PM CDT Office Visit [facility] - Endocrinology - [place] #2 [place] [address] Chetan Do MD #[address] [address] 08/14/2024 1:00 PM CDT Office Visit [facility] - Pulmonology & Sleep Medicine [facility] #2 [place] [address] Raghu Green MD #2 [place] [address] 09/17/2024 1:00 PM CDT Office Visit [facility] - [facility] #2 [place] [address] Nicolas Greer MD #[address] [address] documented as of this encounter Visit Diagnoses Diagnosis Edema, unspecified type documented in this encounter Additional Health Concerns Assessment Noted Time PHQ-9 Depression Total Score: 0 02/12/19 20 10:45 AM COMMUNITY MENTAL HEALTH WORKER documented as of this encounter Care Teams Civil Engineering Professor Relationship Specialty Start Date End Date Nicolas Greer MD #[address] [address] PCP - General Family Medicine 09/08/21 Ariel Christiansen MD Consulting Physician Cardiovascular Disease - Cardiology 07/19/16 [place] [address] [address] Network Management Specialist Pulmonary Disease 06/18/20 Keny Saldaña, NETBACKUP ADMINISTRATOR, ROOF FIXER #[address] [address] Nurse Practitioner Advanced Practice Nurse 09/08/21 Cristian Dewitt MD #[address] [address] Consulting Physician Cardiovascular Disease - Cardiology 10/06/21 02/07/24 Ale Spain, RN [place] Packager Machine 03/15/22 02/12/23 Ale Spain, RN [place] Nurse Packager Machine 03/15/22 02/13/23 Yamel Kurtz III, MD #2 [place] [address] Consulting Physician Urology 09/11/22 Raghu Green MD #2 [place] [address] Consulting Physician Pulmonary Disease 01/04/22 Warren Osborn MD #[address] [address] Consulting Physician Colon and Rectal Surgery 05/21/23 Ale Spain, WALDO [place] Nurse Packager Machine 09/05/23 Chetan Do MD #[address] [phone] Consulting Physician Endocrinology 01/23/24 documented as of this encounter
--- OUTSIDE RECORDS SUMMARY | 2024-03-24 13:00 | XMS_ITS | Encounter Summary ---
Author Organization [facility] Address [address] [place] [address] Phone Care Team Providers Care Handstitching Machine Collar Feller Name Role Phone Ariel Christiansen MD Unavailable [phone] Parmjit Vogel MD Unavailable [phone] Nicolas Greer MD Primary Care Provider [phone] Keny Saldaña APRN, PATIENT FLOW COORDINATOR Unavailable Cristian Dewitt MD Unavailable Ale Black RN Unavailable Unavailable Ale Spain RN Unavailable Unavailable Jerardo MCCANN MD, Courtney Unavailable [phone] Raghu Green MD Unavailable Warren Osborn MD Unavailable Ale Spain RN Unavailable Unavailable Chetan Do MD Unavailable Reason for Visit * Reason Comments Medication Refill Encounter Details Date Type Department Care Team (Late st Contact Info) Description 07/05/2022 Refill [facility] [place] #2 [place] [address] Nicolas Greer MD #[address] [address] Medication Refill Social History Tobacco Use Types [...] Job Start Date Job End Date Retired [employer] Not on file Not on file Not on file COVID-19 Exposure Response Date Recorded In the last 10 days, have yo u been in contact with someone who was confirmed or suspected to have Coronavirus/COVID-19? No / Unsure 07/06/2022 1:01 PM CDT documented as of this encounter Miscellaneous Notes * Telephone Encounter - Nicolle Funk RN - 07/06/2022 9:41 AM CDT PDMP 06/07/22 Medication failed the protocol, provider to review and approve the medication order if appropriate. Requested Prescriptions Pending Prescriptions Disp Refills traMADol (ULTRAM) 50 MG Tablet [Pharmacy Med Name: TRAMADOL HCL 50 MG TABLET] 90 Tablet 0 Sig: TAKE ONE TABLET BY MOUTH EVERY EIGHT HOURS NEEDED FOR PAIN Not Delegated - Opioid Agonists Protocol Failed - 07/05/2022 12:57 PM Failed - This refill cannot be delegated Passed - Visit with relevant provider in past 12 months or upcoming 90 days Recent Visits Date Type Provider Dept 06/21/22 Office Visit Nicolas Greer MD [facility] 03/22/22 Office Visit Nicolas Greer MD [facility] 03/07/22 Telemedicine Nicolas Greer MD [facility] 02/13/22 Telemedicine Nicolas Greer MD [facility] 01/11/22 Telemedicine Nicolas Greer MD [facility] 01/09/22 Telemedicine Keny Saldaña APRN, MARY [facility] 12/19/21 Office Visit Nicolas Greer MD [facility] 09/08/21 Office Visit Keny Saldaña APRN, PATIENT FLOW COORDINATOR [facility] 08/03/21 Telemedicine Nicolas Greer MD [facility] 07/21/21 Telemedicine Nicolas Greer MD [facility] Showing recent visits within past 365 days and meeting all other requirements Future Appointments Date Type Provider Dept 09/21/22 Appointment Nicolas Greer MD [facility] Showing future appointments within next 90 days and meeting all other requirements documented in this encounter Plan of Treatment Upcoming Encounters Date Type Department Care Team (Late st Contact Info) Description 04/24/2024 2:00 PM CDT Office Visit [facility] - Endocrinology - [place] #2 [place] [phone] Chetan Do MD #[address] [phone] 08/14/2024 1:00 PM CDT Office Visit [facility] - Pulmonology & Sleep Medicine - [place] #2 [place] [address] Raghu Green MD #2 [facility] [address] 09/17/2024 1:00 PM CDT Office Visit [facility] - Family Medicine - [place] #2 [place] [address] Nicolas Greer MD #[address] [address] documented as of this encounter Visit Diagnoses Diagnosis Chronic pain of both knees documented in this encounter Additional Health Concerns Assessment Noted Time PHQ-9 Depression Total Score: 0 02/12/19 20 10:45 AM CANE SPLICER documented as of this encounter Care Teams Handstitching Machine Collar Feller Relationship Specialty Start Date End Date Nicolas Greer MD #[address] [address] PCP - General Family Medicine 09/08/21 Ariel Christiansen MD Consulting Physician Cardiovascular Disease - Cardiology 07/19/16 [place] [address] [address] Lab Systems Analyst Pulmonary Disease 06/18/20 Keny Saldaña APRN, PATIENT FLOW COORDINATOR #[address] [address] Nurse Practitioner Advanced Practice Nurse 09/08/21 Cristian Dewitt MD #[address] [address] Consulting Physician Cardiovascular Disease - Cardiology 10/06/21 02/07/24 Ale Spain, RN [place] Trauma Coordinator 03/15/22 02/12/23 Ale Spain, RN [place] Nurse Trauma Coordinator 03/15/22 02/13/23 Yamel Kurtz III, MD #2 [place] [address] Consulting Physician Urology 09/11/22 Raghu Green MD #2 [place] [address] Consulting Physician Pulmonary Disease 01/04/22 Warren Osborn MD #[address] [address] Consulting Physician Colon and Rectal Surgery 05/21/23 Ale Spain, RN [place] Nurse Trauma Coordinator 09/05/23 Chetan Do MD #[address] [phone] Consulting Physician Endocrinology 01/23/24 documented as of this encounter
--- OUTSIDE RECORDS SUMMARY | 2024-03-24 13:00 | XMS_ITS | Encounter Summary ---
Author Organization [facility] Address [address] [place] [address] Phone Care Team Providers Care Medical Claims Representative Name Role Phone Ariel Christiansen MD Unavailable [phone] Parmjit Vogel MD Unavailable [phone] Nicolas Greer MD Primary Care Provider [phone] Keny Saldaña APRN, SALON COORDINATOR Unavailable Cristian Dewitt MD Unavailable Ale Black RN Unavailable Unavailable Ale Spain RN Unavailable Unavailable Jerardo MCCANN MD, Courtney Unavailable [phone] Raghu Green MD Unavailable Warren Osborn MD Unavailable Ale Spain RN Unavailable Unavailable Chetan Do MD Unavailable Reason for Visit * Reason Comments Medication Refill Encounter Details Date Type Department Care Team (Late st Contact Info) Description 08/02/2022 Refill [facility] #2 [place] [address] Nicolas Greer MD #2 [facility] [address] [place] [address] Medication Refill Social History Tobacco Use Types [...] Job Start Date Job End Date Retired [employer] Not on file Not on file Not on file COVID-19 Exposure Response Date Recorded In the last 10 days, have yo u been in contact with someone who was confirmed or suspected to have Coronavirus/COVID-19? No / Unsure 07/11/2022 1:14 PM CDT documented as of this encounter Miscellaneous Notes * Telephone Encounter - Nicolle Funk RN - 08/03/2022 10:16 AM CDT Signed Yesterday (08/02/2022): aspirin EC (Aspirin Low Dose) 81 MG Tablet Delayed Response Sig: Take 1 Tablet by mouth daily. Disp: 90 Tablet ? Refills: 0 Signed by: Nicolas Greer MD [facility] documented in this encounter Plan of Treatment Upcoming Encounters Date Type Department Care Team (Late st Contact Info) Description 04/24/2024 2:00 PM CDT Office Visit [facility] - [place] #2 [place] [phone] Chetan Do MD #2 [facility] [address] [place] [address] 08/14/2024 1:00 PM CDT Office Visit [facility] - [facility] #2 [place] [address] Raghu Green MD #2 [place] [address] 09/17/2024 1:00 PM CDT Office Visit [facility]2 [place] [address] Nicolas Greer MD #[address] [address] documented as of this encounter Visit Diagnoses Not on filedocumented in this encounter Additional Health Concerns Assessment Noted Time PHQ-9 Depression Total Score: 0 02/12/19 20 10:45 AM PREPARATION ROOM WORKER documented as of this encounter Care Teams Medical Claims Representative Relationship Specialty Start Date End Date Nicolas Greer MD #[address] [address] PCP - General Family Medicine 09/08/21 Ariel Christiansen MD Consulting Physician Cardiovascular Disease - Cardiology 07/19/16 [place] [address] [address] Sales Agent Financial Report Service Pulmonary Disease 06/18/20 Keny Saldaña APRN, SALON COORDINATOR #[address] [address] Nurse Practitioner Advanced Practice Nurse 09/08/21 Cristian Dewitt MD #[address] [address] Consulting Physician Cardiovascular Disease - Cardiology 10/06/21 02/07/24 Ale Spain, RN [place] Upsetting Machine Operator 03/15/22 02/12/23 Ale Spain, RN [place] Nurse Upsetting Machine Operator 03/15/22 02/13/23 Yamel Kurtz III, MD #2 [place] [address] Consulting Physician Urology 09/11/22 Raghu Green MD #2 [place] [address] Consulting Physician Pulmonary Disease 01/04/22 Warren Osborn MD #[address] [address] Consulting Physician Colon and Rectal Surgery 05/21/23 Ale Spain, WALDO [place] Nurse Upsetting Machine Operator 09/05/23 Chetan Do MD #[address] [address] Consulting Physician Endocrinology 01/23/24 documented as of this encounter
--- OUTSIDE RECORDS SUMMARY | 2024-03-24 13:00 | XMS_ITS ---
Care Plan Created on: March 24, 2024 Tomeka Burrows : 1950 Sex: Female Author Organization [facility] Address [address] [address] Phone Care Team Providers Care Systems Mechanic Name Role Phone Ariel Christiansen MD Unavailable Parmjit Vogel MD Unavailable Nicolas Greer MD Primary Care Provider [phone] Keny Saldaña APRN, ORANGE PICKING SUPERVISOR Unavailable Jerardo MCCANN MD, Courtney Unavailable [phone] Raghu Green MD Unavailable Warren Osborn MD Unavailable Ale Spain RN Unavailable Unavailable Chetan Do MD Unavailable Active Problems Problem Noted Date Diagnosed Date [...] heart failure) 09/02/2021 09/05/2021 Hypomagnesemia 09/02/2021 09/05/2021 Additional Health Concerns Active Problems Noted Date Diagnosed Date Disease Progression (COPD) 03/03/2024 Goals Goal Patient Goal Type Associated Problems Recent Progress Patient-Stated? Author Become More Active Patient Goals On track(2024 3:47 PM WELDER APPRENTICE COMBINATION) Yes Ale Spain, RN Note: Follow Up Date 03/2024 - keep track of how long I exercise - keep track of how often I exercise Why is this important? It is easy to come up with reasons not to exercise. These steps will help you get started and have fun doing it. Notes: Track and Manage My Symptoms Patient Goals On track(2024 3:51 PM WELDER APPRENTICE COMBINATION) Yes Ale Spain RN Note: Follow Up [...] or Managed Care Plan Disease Progression (COPD) No Ale Spain, RN Note: Evidence-based guidance: Identify smoking status; [...] risk. Facilitate referral to pulmonary rehabilitation for vjbolyrry-[id number]-[id number] training, improved exercise capacity, mood and quality [...] reduction surgery, bullectomy or lung transplantation. Notes: Interventions Care Plan Interventions Intervention Entry Date Outcome Alleviate Barriers to COPD Management 03/03/2024 Note:Care Management Activities: t- action plan reviewed - activity or exercise based on tolerance encouraged - breathing techniques promoted - fall risk monitored - inhaler technique observed - quality of sleep assessed - self-awareness of symptom triggers encouraged Notes: Related Goals and Interventions Goal Associated Intervent ions Disease Progression Minimized or Managed Alleviate Barriers to COPD Management
--- OUTSIDE RECORDS SUMMARY | 2024-03-24 13:00 | XMS_ITS | Encounter Summary ---
Author Organization [facility] Address [address] [place] [address] Phone Care Team Providers Care Rn Plastic Surgery Name Role Phone Ariel Christiansen MD Unavailable [phone] Parmjit Vogel MD Unavailable [phone] Nicolas Greer MD Primary Care Provider [phone] Keny Saldaña APRN, CAMERA MAKER Unavailable Cristian Dewitt MD Unavailable Ale Black RN Unavailable Unavailable Ale Spain RN Unavailable Unavailable Jerardo MCCANN MD, Courtney Unavailable [phone] Raghu Green MD Unavailable Warren Osborn MD Unavailable Ale Spain RN Unavailable Unavailable Chetan Do MD Unavailable Reason for Visit * Reason Comments Medication Refill Encounter Details Date Type Department Care Team (Late st Contact Info) Description 11/09/2021 Refill [facility] [place] [facility] [place] [address] Nicolas Greer MD #[address] [address] Medication Refill Social History Tobacco Use Types [...] Job Start Date Job End Date Retired [employer] Not on file Not on file Not on file COVID-19 Exposure Response Date Recorded In the last 10 days, have yo u been in contact with someone who was confirmed or suspected to have Coronavirus/COVID-19? No / Unsure 10/17/2021 1:56 PM CDT documented as of this encounter Miscellaneous Notes * Telephone Encounter - Verna Guzman RN - 11/09/2021 9:56 AM CDT Historical med Per nursing clinical judgement, provider to review and approve the medication(s) order(s) if appropriate. Requested Prescriptions Pending Prescriptions Disp Refills aspirin EC 81 MG Tablet Delayed Response [Pharmacy Med Name: GERONIMO EC ASPIRIN 81 MG] 30 Tablet 0 Sig: TAKE ONE TABLET BY MOUTH DAILY--AM-- Platelet Inhibitors Protocol Passed - 11/09/2021 8:07 AM Passed - CBC on record in the past year WBC Date Value Ref Range Status 09/14/2021 8.72 4.00 - 12.00 10(3)/mcL Final WBC ESTERASE Date Value Ref Range Status 09/04/2021 Negative Negative Final RBC Date Value Ref Range Status 09/14/2021 4.15 3.80 - 5.30 10(6)/mcL Final HEMATOCRIT (HCT) Date Value Ref Range Status 09/14/2021 42.3 36.0 - 47.0 % Final HEMOGLOBIN (HGB) Date Value Ref Range Status 09/14/2021 12.7 12.0 - 15.8 g/dL Final MCV Date Value Ref Range Status 09/14/2021 101.9 (H) 82.0 - 96.0 fL Final MCH Date Value Ref Range Status 09/14/2021 30.6 26.0 - 34.0 pg Final MCHC Date Value Ref Range Status 09/14/2021 30.0 (L) 31.0 - 36.0 g/dL Final Passed - Visit with relevant provider in past year or upcoming 90 days Recent Visits Date Type Provider Dept 09/08/21 Office Visit Keny Saldaña APRN, MARY [facility] 08/03/21 Telemedicine Nicolas Greer MD [facility] 07/21/21 Telemedicine Nicolas Greer MD [facility] 04/28/21 Telemedicine Nicolas Greer MD [facility] 12/20/20 Office Visit Nicolas Greer MD [facility] Showing recent visits within past 365 days and meeting all other requirements Future Appointments Date Type Provider Dept 12/19/21 Appointment Nicolas Greer MD [facility] Showing future appointments within next 90 days and meeting all other requirements documented in this encounter Plan of Treatment Upcoming Encounters Date Type Department Care Team (Late st Contact Info) Description 04/24/2024 2:00 PM CDT Office Visit [facility] Group - Endocrinology - [place] #2 [place] [address] Chetan Do MD #[address] [phone] 08/14/2024 1:00 PM CDT Office Visit [facility] - Pulmonology & Sleep Medicine - [place] #2 [place] [address] Raghu Green MD #2 [place] [address] 09/17/2024 1:00 PM CDT Office Visit [facility] #2 [place] [address] Nicolas Greer MD #[address] [address] documented as of this encounter Visit Diagnoses Not on filedocumented in this encounter Additional Health Concerns Infection Onset Date Last Indicated Resolved Time COVID - 19 12/24/2021 12/24/2021 12/26/2021 8:07 AM CHANNEL MARKETING SPECIALIST Respiratory Rule Out - RPA 12/24/2021 12/24/2021 1 02/24/2021 4:41 PM CHANNEL MARKETING SPECIALIST Influenza 12/24/2021 12/24/2021 12/31/2021 12:1 6 AM CHANNEL MARKETING SPECIALIST Assessment Noted Time PHQ-9 Depression Total Score: 0 02/12/19 10:45 AM CHANNEL MARKETING SPECIALIST documented as of this encounter Care Teams Rn Plastic Surgery Relationship Specialty Start Date End Date Nicolas Greer MD #[address] [address] PCP - General Family Medicine 09/08/21 Ariel Christiansen MD Consulting Physician Cardiovascular Disease - Cardiology 07/19/16 [place] [address] [address] Primary Special Education Teacher Pulmonary Disease 06/18/20 Keny Saldaña, PARKING CASHIER, CAMERA MAKER #[address] [address] Nurse Practitioner Advanced Practice Nurse 09/08/21 Cristian Dewitt MD #[address] [address] Consulting Physician Cardiovascular Disease - Cardiology 10/06/21 02/07/24 Ale Spain, RN [place] Rubber Goods Tester 03/15/22 02/12/23 Ale Spain, RN [place] Nurse Rubber Goods Tester 03/15/22 02/13/23 Yamel Kurtz III, MD #2 [place] [address] Consulting Physician Urology 09/11/22 Raghu Green MD #2 [place] [address] Consulting Physician Pulmonary Disease 01/04/22 Warren Osborn MD #[address] [address] Consulting Physician Colon and Rectal Surgery 05/21/23 Ale Spain, WALDO [place] Nurse Rubber Goods Tester 09/05/23 Chetan Do MD #[address] [phone] Consulting Physician Endocrinology 01/23/24 documented as of this encounter
--- OUTSIDE RECORDS SUMMARY | 2024-03-24 13:00 | XMS_ITS | Encounter Summary ---
Author Organization [facility] Address [address] [place] [address] Phone Care Team Providers Care Film Rental Clerk Name Role Phone Nicolas Greer MD Primary Care Provider [phone] Ariel Christiansen MD Unavailable [phone] Parmjit Vogel MD Unavailable [phone] Nicolas Greer MD Primary Care Provider [phone] Keny Saldaña APRN, INDUSTRIAL SERVICER Unavailable Cristian Dewitt MD Unavailable Ale Black RN Unavailable Unavailable Ale Spain RN Unavailable Unavailable Jerardo MCCANN MD, Courtney Unavailable [phone] Raghu Green MD Unavailable Warren Osborn MD Unavailable Ale Spain RN Unavailable Unavailable Chetan Do MD Unavailable Reason for Visit * Reason Comments Medication Refill Encounter Details Date Type Department Care Team (Late st Contact Info) Description 02/06/2021 Refill [facility] #2 [place] [address] Nicolas Greer MD [address] [address] Medication Refill Social History Tobacco Use Types Packs/Day Years Used Date Smoking Tobacco: Former Cigarettes 0.5 50 Smokeless Tobacco: Never Alcohol Use Standard Drinks/Week Comments No 0 (1 standard drink = 0.6 oz pur e alcohol) PHQ-2 Answer Date Recorded PHQ-2 Score 0 11/05/2018 Sexually Active Control Partners Comments Not Currently Comments No Sex and Gender Information Value Date Recorded Sex Assigned at Not on file Legal Sex Female 7:47 PM CDT Gender Identity Not on file Sexual Orientation Not on file Occupation Industry Job Start Date Job End Date Retired [employer] Not on file Not on file Not on file COVID-19 Exposure Response Date Recorded In the last month, have you been in contact with someone who was confirmed or suspected to have Coronavirus / COVID-19? No / Unsure 01/07/2021 12:02 PM PETAL SHAPER HAND documented as of this encounter Miscellaneous Notes * Telephone Encounter - Mily Woodard RN - 02/07/2021 6:18 PM CST Medication failed the protocol, provider to review and approve the medication order if appropriate. Requested Prescriptions Pending Prescriptions Disp Refills benzonatate (TESSALON) 100 MG Capsule [Pharmacy Med Name: Benzonatate 100 MG Oral Capsule] 30 Capsule 0 Sig: Take 1 capsule by mouth three times daily as needed for cough Not Delegated - Anti-Tussives Protocol Failed - 02/06/2021 2:10 PM Failed - This refill cannot be delegated Passed - Visit with relevant provider in past 12 months or upcoming 90 days Recent Visits Date Type Provider Dept 12/20/20 Office Visit Nicolas Greer MD [facility] 09/22/20 Office Visit Nicolas Greer MD [facility] 06/21/20 Office Visit Nicolas Greer MD [facility] 06/08/20 Office Visit Nicolas Greer MD [facility] 03/11/20 [facility] Showing recent visits within past 365 days and meeting all other requirements Future Appointments Date Type Provider Dept 03/22/21 Appointment Nicolas Greer MD [facility] Showing future appointments within next 90 days and meeting all other requirements L SHAPER HAND documented in this encounter Plan of Treatment Upcoming Encounters Date Type Department Care Team (Late st Contact Info) Description 04/24/2024 2:00 PM CDT Office Visit [facility] - Endocrinology - [place] [address]2 [place] [address] Chetan Do MD #[address] [address] 08/14/2024 1:00 PM CDT Office Visit [facility] - Pulmonology & Sleep Medicine - [place] #2 [place] [address] Raghu Green MD #2 [place] [address] 09/17/2024 1:00 PM CDT Office Visit [facility] - Family Medicine - [place] #2 [place] [address] Nicolas Greer MD #[address] [place] [address] documented as of this encounter Visit Diagnoses Diagnosis Pulmonary emphysema, unspecified emphysema type (HCC) documented in this encounter Additional Health Concerns Infection Onset Date Last Indicated Resolved Time COVID - 19 09/02/2021 09/02/2021 09/03/2021 2:05 PM CDT COVID - 19 12/24/2021 12/24/2021 12/26/2021 8:07 AM PETAL SHAPER HAND Respiratory Rule Out - RPA 12/24/2021 12/24/2021 1 02/24/2021 4:41 PM PETAL SHAPER HAND Influenza 12/24/2021 12/24/2021 12/31/2021 12:1 6 AM PETAL SHAPER HAND Assessment Noted Time PHQ-9 Depression Total Score: 0 02/12/19 10:45 AM PETAL SHAPER HAND documented as of this encounter Care Teams Film Rental Clerk Relationship Specialty Start Date End Date Nicolas Greer MD #[address] [address] PCP - General Family Medicine 12/22/14 09/07/21 Nicolas Greer MD #[address] [address] PCP - General Family Medicine 09/08/21 Ariel Christiansen MD #[address] [address] Consulting Physician Cardiovascular Disease - Cardiology 07/19/16 [place] [id number] [address] Drop Forger Pulmonary Disease 06/18/20 Keny Saldaña, HIM TECH, INDUSTRIAL SERVICER #[address] [address] Nurse Practitioner Advanced Practice Nurse 09/08/21 Cristian Dewitt MD #[address] [address] Consulting Physician Cardiovascular Disease - Cardiology 10/06/21 02/07/24 Ale Spain, RN [place] Steam Crane Operator 03/15/22 02/12/23 Spain, Ale M, RN [place] Nurse Steam Crane Operator 03/15/22 02/13/23 Yamel Kurtz III, MD #2 [place] [address] Consulting Physician Urology 09/11/22 Raghu Green MD #2 [place] [address] Consulting Physician Pulmonary Disease 01/04/22 Warren Osborn MD #[address] [address] Consulting Physician Colon and Rectal Surgery 05/21/23 Ale Spain RN [place] Nurse Steam Crane Operator 09/05/23 Chetan Do MD #[address] [address] Consulting Physician Endocrinology 01/23/24 documented as of this encounter
--- OUTSIDE RECORDS SUMMARY | 2024-03-24 13:00 | XMS_ITS | Encounter Summary ---
Author Organization [facility] Address [address] [place] [address] Phone Care Team Providers Care Mask Designer Name Role Phone Nicolas Greer MD Primary Care Provider [phone] Ariel Christiansen MD Unavailable [phone] Parmjit Vogel MD Unavailable [phone] Nicolas Greer MD Primary Care Provider [phone] Keny Saldaña APRN, SENIOR ANALYST PROGRAMMER Unavailable Cristian Dewitt MD Unavailable Ale Black RN Unavailable Unavailable Ale Spani RN Unavailable Unavailable Jerardo MCCANN MD, Courtney Unavailable [phone] Raghu Green MD Unavailable Warren Osborn MD Unavailable Ale Spain RN Unavailable Unavailable Chetan Do MD Unavailable Reason for Visit * Reason Comments Medication Refill Encounter Details Date Type Department Care Team (Late st Contact Info) Description 02/22/2021 Refill [facility] #2 [place] [address] Nicolas Greer MD [facility] [address] [place] [address] Medication Refill Social History Tobacco Use Types [...] Job Start Date Job End Date Retired [employer] Not on file Not on file Not on file documented as of this encounter Miscellaneous Notes * Telephone Encounter - Nicolle Funk RN - 02/22/2021 3:12 PM CST Medication failed the protocol, provider to review and approve the medication order if appropriate. Requested Prescriptions Pending Prescriptions Disp Refills lovastatin (MEVACOR) 40 MG Tablet [Pharmacy Med Name: Lovastatin 40 MG Oral Tablet] 45 Tablet 0 Sig: Take 1/2 (one-half) tablet by mouth once daily Hmg CoA Reductase Inhibitors Protocol Passed - 02/22/2021 1:32 PM Passed - Visit with relevant provider in past 12 months or upcoming 90 days Recent Visits Date Type Provider Dept 12/20/20 Office Visit Nicolas Greer MD [facility] 09/22/20 Office Visit Nicolas Greer MD [facility] 06/21/20 Office Visit Nicolas Greer MD [facility] 06/08/20 Office Visit Nicolas Greer MD [facility] 03/11/20 Office Visit Nicolas Greer MD [facility] Showing recent visits within past 365 days and meeting all other requirements Future Appointments Date Type Provider Dept 03/22/21 Appointment Nicolas Greer MD [facility] Showing future appointments within next 90 days and meeting all other requirements Passed - Lipid panel in past 12 months LDL Date Value Ref Range Status 03/11/2020 89 5 - 130 mg/dL Final 08/04/2019 109 0 - 130 mg/dL Final HDL CHOLESTEROL Date Value Ref Range Status 03/11/2020 44.3 >40 mg/dL Final CHOLESTEROL Date Value Ref Range Status 03/11/2020 176 <=200 mg/dL Final TRIGLYCERIDES Date Value Ref Range Status 03/11/2020 212 (H) <150 mg/dL Final VLDL Date Value Ref Range Status 03/11/2020 42 5 - 55 mg/dL Final CHOL/HDL RATIO Date Value Ref Range Status 03/11/2020 4.0 0.0 - 4.4 Final NON-HDL CHOLESTEROL Date Value Ref Range Status 03/11/2020 131.7 (H) <130 mg/dL Final sertraline (ZOLOFT) 50 MG Tablet [Pharmacy Med Name: Sertraline HCl 50 MG Oral Tablet] 90 Tablet 0 Sig: Take 1 tablet by mouth once daily SSRI (6 Month Refill Only) Protocol Failed - 02/22/2021 1:32 PM Failed - Has an encounter in the past 6 months with a depression, anxiety, adjustment disorder, OCD, or PTSD visit diagnosis Passed - Visit with relevant provider in past 6 months or upcoming 90 days Recent Visits Date Type Provider Dept 12/20/20 Office Visit Nicolas Greer MD [facility] 09/22/20 Office Visit Nicolas Greer MD [facility] Showing recent visits within past 182 days and meeting all other requirements Future Appointments Date Type Provider Dept 03/22/21 Appointment Nicolas Greer MD [facility] Showing future appointments within next 90 days and meeting all other requirements Passed - Patient has established therapy with SSRI for at least 6 months GER TELEMETRY documented in this encounter Plan of Treatment Upcoming Encounters Date Type Department Care Team (Late st Contact Info) Description 04/24/2024 2:00 PM CDT Office Visit [facility] Group - Endocrinology - [place] #2 [place] [address] Chetan Do MD #[address] [address] 08/14/2024 1:00 PM CDT [facility] #2 [place] [address] Raghu Green MD #2 [place] [address] 09/17/2024 1:00 PM CDT Office Visit [facility] Medical [facility] [place] #2 [place] [address] Nicolas Greer MD #[address] [address] documented as of this encounter Visit Diagnoses Diagnosis Depression with anxiety Dysthymic disorder documented in this encounter Additional Health Concerns Infection Onset Date Last Indicated Resolved Time COVID - 19 09/02/2021 09/02/2021 09/03/2021 2:05 PM CDT COVID - 19 12/24/2021 12/24/2021 12/26/2021 8:07 AM MANAGER TELEMETRY Respiratory Rule Out - RPA 12/24/2021 12/24/2021 1 02/24/2021 4:41 PM MANAGER TELEMETRY Influenza 12/24/2021 12/24/2021 12/31/2021 12:1 6 AM MANAGER TELEMETRY Assessment Noted Time PHQ-9 Depression Total Score: 0 02/12/19 10:45 AM MANAGER TELEMETRY documented as of this encounter Care Teams Mask Designer Relationship Specialty Start Date End Date Nicolas Greer MD #[address] [address] PCP - General Family Medicine 12/22/14 09/07/21 Nicolas Greer MD #[address] [address] PCP - General Family Medicine 09/08/21 Ariel Christiansen MD #[address] [address] Consulting Physician Cardiovascular Disease - Cardiology 07/19/16 [place] [address] [address] Caustic Room Operator Pulmonary Disease 06/18/20 Keny Saldaña APRN, SENIOR ANALYST PROGRAMMER #[address] [address] Nurse Practitioner Advanced Practice Nurse 09/08/21 Cristian Dewitt MD #[address] [address] Consulting Physician Cardiovascular Disease - Cardiology 10/06/21 02/07/24 Ale Spain, RN [place] Engraver Set Up Operator 03/15/22 02/12/23 Ale Spain RN [place] Nurse Engraver Set Up Operator 03/15/22 02/13/23 Yamel Kurtz III, MD #2 [place] [address] Consulting Physician Urology 09/11/22 Raghu Green MD #2 [place] [address] Consulting Physician Pulmonary Disease 01/04/22 Warren Osborn MD #[address] [address] Consulting Physician Colon and Rectal Surgery 05/21/23 Ale Spain, RN [place] Nurse Engraver Set Up Operator 09/05/23 Chetan Do MD #[address] [phone] Consulting Physician Endocrinology 01/23/24 documented as of this encounter
--- OUTSIDE RECORDS SUMMARY | 2024-03-24 13:00 | XMS_ITS | Encounter Summary ---
Author Organization [employer] Address [address] [facility] [place] [address] Phone Care Team Providers Care Pigment Weigher Name Role Phone Nicolas Greer MD MPH Primary Care Provider [phone] Reason for Visit * Reason Comments Med Refill Encounter Details Date Type Department Care Team (Late st Contact Info) Description 12/16/2023 Refill [facility] 2 [facility] [address] [place] [address] Jorge Rabago MD [address] [place] [address] [address] [place], [place] [id number] Social History Tobacco Use Types Packs/Day Years Used Date Smoking Tobacco: Former Cigarettes Alcohol Use Standard Drinks/Week Comments Never 0 (1 standard drink = 0.6 oz pur e alcohol) Comments Unknown Sex and Gender Information Value Date Recorded Sex Assigned at Not on file Legal Sex Female 6:09 PM EDT Gender Identity Not on file Sexual Orientation Not on file documented as of this encounter Plan of Treatment Upcoming Encounters Date Type Department Care Team (Late Contact Info) Description 04/01/2024 4:00 PM PATIENT COORDINATOR FRONT DESK Office Visit [facility] [address] [place] [address] Jorge Rabago MD 2 [facility] [address] [place], [place] [address] documented as of this encounter Visit Diagnoses Not on filedocumented in this encounter Care Teams Pigment Weigher Relationship Specialty Start Date End Date Nicolas Greer MD MPH [address] [place] [address] PCP - General Family Medicine 01/04/22 documented as of this encounter
--- OUTSIDE RECORDS SUMMARY | 2024-03-24 13:00 | XMS_ITS | Encounter Summary ---
Author Organization [facility] Address [address] [place] [address] Phone Care Team Providers Care Home Health Administrator Name Role Phone Ariel Christiansen MD Unavailable [phone] Parmjit Vogel MD Unavailable [phone] Nicolas Greer MD Primary Care Provider [phone] Keny Saldaña APRN, BI LEAD Unavailable Jerardo MCCANN MD, Courtney Unavailable [phone] Raghu Green MD Unavailable Warren Osborn MD Unavailable Ale Spain RN Unavailable Unavailable Chetan Do MD Unavailable Encounter Details Date Type Department Care Team (Late st Contact Info) Description 03/21/2024 Patient Outreach [facility] Work[facility] Management [address] [place] [address] Ale Spain, RN [place] Social History Tobacco Use Types Packs/Day Years Used Date Smoking Tobacco: Former Cigarettes 0.5 50 1 957 - 2007 Smokeless Tobacco: Never Alcohol Use Standard Drinks/Week Comments No 0 (1 standard drink = 0.6 oz pur e alcohol) [facility] Utilities Answer Date Recorded In the past 12 months has th e electric, gas, oil, or water company [...] week 03/03/2024 How often do you attend hindu or baptist serv ices? Never 03/03/2024 Do you belong to any clubs o r organizations such as hindu groups, unions, fraternal or athletic groups, or [...] Total Score - Questions 1-9 0 02/06 [facility] - Occupational Stress [...] place to sleep or slept in a detention (including now)? Patient declined 04/04/2023 Housing Stability [...] any time in the past 12 m [facility], were you homeless or living in a detention (including now)? No 03/03/2024 Education Answer Date [...] Job Start Date Job End Date Retired [employer] Not on file Not on file Not on file documented as of this encounter Progress Notes * Ale Spain RN - 03/21/2024 11:54 AM CST Images from the original note were not included. Per 's note Received call from Ivette, daughter in law, to report that patient is taking 100 mg of sertraline every morning. She states patient has been christian and is requesting a medication increase. CIAN INSTRUMENTAL * Ale Spain RN - 03/21/2024 11:54 AM CST Attempted to contact Ivette,daughter in law, and no answer. VM left with updated medication instructions. CIAN INSTRUMENTAL * Ale Spain RN - 03/21/2024 11:54 AM CST Ivette notified and verbalizes understanding. CIAN INSTRUMENTAL documented in this encounter Miscellaneous Notes * Telephone Encounter - Nicolas Greer MD - 03/21/2024 9:36 PM MUSICIAN INSTRUMENTAL Tell her to take 1 and 1/2 pill of Sertraline, for a total of 150 mg daily. Med list updated. Thanks! CIAN INSTRUMENTAL documented in this encounter Plan of Treatment Upcoming Encounters Date Type Department Care Team (Late st Contact Info) Description 04/24/2024 2:00 PM CDT Office Visit [facility] Medical Group - Endocrinology - [place] #2 [place] [address] Chetan Do MD #[address] [phone] 08/14/2024 1:00 PM CDT Office Visit [facility] Group - Pulmonology & Sleep Medicine [facility] #2 [place] [address] Raghu Green MD #2 [place] [address] 09/17/2024 1:00 PM CDT [facility] Visit [facility] - [place] #[address] [place] [address] Nicolas Greer MD #[address] [place] [address] documented as of this encounter Goals Goal Patient Goal Type Associated Problems Recent Progress Patient-Stated? Author Become More Active Patient Goals On track(2024 3:47 PM MUSICIAN INSTRUMENTAL) Yes Ale Spain, RN Note: Follow Up [...] Symptoms Patient Goals On track(2024 3:51 PM MUSICIAN INSTRUMENTAL) Yes Ale Spain, RN Note: Follow Up [...] risk. Facilitate referral to pulmonary rehabilitation for lmdtinpoo-[id number]-[id number] training, improved exercise capacity, mood and quality [...] reduction surgery, bullectomy or lung transplantation. Notes: documented as of this encounter Visit Diagnoses Diagnosis Depression with anxiety Dysthymic disorder Depression, unspecified depression type documented in this encounter Additional Health Concerns Active Problems Noted Date Diagnosed Date Disease Progression (COPD) 03/03/2024 Assessment Noted Time PHQ-9 Depression Total Score: 0 03/03/19 25 3:34 PM MUSICIAN INSTRUMENTAL documented as of this encounter Care Teams Home Health Administrator Relationship Specialty Start Date End Date Nicolas Greer MD #[address] [address] PCP - General Family Medicine 09/08/21 Ariel Christiansen MD Consulting Physician Cardiovascular Disease - Cardiology 07/19/16 [place] [address] [address] Vegetable I Farmworker Pulmonary Disease 06/18/20 Keny Saldaña APRN, BI LEAD #[address] [address] Nurse Practitioner Advanced Practice Nurse 09/08/21 Yamel Kurtz III, MD #2 [place] [address] Consulting Physician Urology 09/11/22 Rgahu Green MD #2 [place] [address] Consulting Physician Pulmonary Disease 01/04/22 Warren Osborn MD #[address] [address] Consulting Physician Colon and Rectal Surgery 05/21/23 Ale Spain, [place] Nurse Petal Shaper Hand 09/05/23 Chetan Do MD #[address] [phone] Consulting Physician Endocrinology 01/23/24 documented as of this encounter
--- OUTSIDE RECORDS SUMMARY | 2024-03-24 13:00 | XMS_ITS | Encounter Summary ---
Author Organization [facility] Address [address] [place] [place] [address] Phone Care Team Providers Care Bridge Ironworker Helper Name Role Phone Ariel Christiansen MD Unavailable [phone] Parmjit Vogel MD Unavailable [phone] Nicolas Greer MD Primary Care Provider [phone] Keny Saldaña APRN, SUPERINTENDENT OVERHEAD DISTRIBUTION Unavailable Cristian Dewitt MD Unavailable Ale Black RN Unavailable Unavailable Ale Spain RN Unavailable Unavailable Jerardo MCCANN MD, Courtney Unavailable [phone] Raghu Green MD Unavailable Warren Osborn MD Unavailable Ale Spain RN Unavailable Unavailable Chetan Do MD Unavailable Reason for Visit * Reason Comments Medication Refill Encounter Details Date Type Department Care Team (Late st Contact Info) Description 06/26/2022 Refill [facility] [place] #2 [place] [address] Nicolas Greer MD #[address] [address] Medication Refill Social History Tobacco Use Types [...] Job Start Date Job End Date Retired [employer] Not on file Not on file Not on file COVID-19 Exposure Response Date Recorded In the last 10 days, have yo u been in contact with someone who was confirmed or suspected to have Coronavirus/COVID-19? No / Unsure 06/21/2022 2:18 PM CDT documented as of this encounter Miscellaneous Notes * Telephone Encounter - Nicolle Funk RN - 06/26/2022 2:28 PM CDT Medication failed the protocol, provider to review and approve the medication order if appropriate. Requested Prescriptions Pending Prescriptions Disp Refills vitamin b-12 (CYANOCOBALAMIN) 100 MCG Tablet [Pharmacy Med Name: VITAMIN B-12 100 MCG TABLET] 180 Tablet 1 Sig: TAKE TWO TABLETS BY MOUTH DAILY #0200 Not Delegated - Off Protocol Failed - 06/26/2022 8:26 AM Failed - This refill cannot be delegated Passed - Visit with relevant provider in past 12 months or upcoming 90 days Recent Visits Date Type Provider Dept 06/21/22 Office Visit Nicolas Greer MD [facility] 03/22/22 Office Visit Nicolas Greer MD [facility] 03/07/22 Telemedicine Nicolas Greer MD [facility] 02/13/22 Telemedicine MohNicolas ku MD [facility] 01/11/22 Telemedicine Nicolas Greer MD [facility] 01/09/22 Telemedicine Keny Saldaña APRN, MARY [facility] 12/19/21 Office Visit Nicolas Greer MD [facility] 09/08/21 Office Visit Keny Saldaña APRN, MARY [facility] 08/03/21 Telemedicine Nicolas Greer MD [facility] 07/21/21 Telemedicine Nicolas Greer MD [facility] Showing recent visits within past 365 days and meeting all other requirements Future Appointments Date Type Provider Dept 09/21/22 Appointment Nicolas Greer MD [facility] Showing future appointments within next 90 days and meeting all other requirements torsemide (DEMADEX) 20 MG Tablet [Pharmacy Med Name: TORSEMIDE 20 MG TABLET] 90 Tablet 1 Sig: TAKE ONE TABLET BY MOUTH DAILY #0100 Diuretics Protocol Passed - 06/26/2022 8:26 AM Passed - Serum potassium on record [...] Clinician-entered: BP Readings from Last 3 Encounters: 06/21/22 126/66 03/22/22 128/82 02/27/22 132/80 Patient-entered: No data recorded Passed - Visit [...] [facility] 01/09/22 Telemedicine Keny Saldaña APRN, SUPERINTENDENT OVERHEAD DISTRIBUTION [facility] [place] 12/19/21 Office Visit Nicolas Greer MD [facility] 09/08/21 Office Visit Keny Saldaña APRN, MARY [facility] [place] 08/03/21 Telemedicine Nicolas Greer MD [facility] 07/21/21 Telemedicine Nicolas Greer MD [facility] Showing [...] Range Status 04/06/2022 48 (L) >=60 Final documented in this encounter Plan of Treatment Upcoming Encounters Date Type Department Care Team (Late st Contact Info) Description 04/24/2024 2:00 PM CDT Office Visit [facility] - Endocrinology - [place] #2 [place] [id number] Chetan Do MD #[address] [phone] 08/14/2024 1:00 PM CDT Office Visit [facility] Medical [facility] - Pulmonology & Sleep Medicine - [place] #2 [place] [phone] Raghu Green MD #2 [place] [address] 09/17/2024 1:00 PM CDT Office Visit [facility] Medical [facility] - Family Medicine - [place] #2 [place] [address] Nicolas Greer MD #[address] [address] documented as of this encounter Visit Diagnoses Diagnosis Edema, unspecified type documented in this encounter Additional Health Concerns Assessment Noted Time PHQ-9 Depression Total Score: 0 02/12/19 20 10:45 AM SAP HANA DEVELOPER documented as of this encounter Care Teams Bridge Ironworker Helper Relationship Specialty Start Date End Date Nicolas Greer MD #[address] [address] PCP - General Family Medicine 09/08/21 Ariel Christiansen MD Consulting Physician Cardiovascular Disease - Cardiology 07/19/16 [place] [address] [address] Material Movers Pulmonary Disease 06/18/20 Keny Saldaña APRN, SUPERINTENDENT OVERHEAD DISTRIBUTION #[address] [address] Nurse Practitioner Advanced Practice Nurse 09/08/21 Cristian Dewitt MD #[address] [address] Consulting Physician Cardiovascular Disease - Cardiology 10/06/21 02/07/24 Ale Spain, RN [place] Rural Electrification Engineer 03/15/22 02/12/23 Ale Spain, RN [place] Nurse Rural Electrification Engineer 03/15/22 02/13/23 Yamel Kurtz III, MD #2 [place] [address] Consulting Physician Urology 09/11/22 Raghu Green MD #2 [place] [address] Consulting Physician Pulmonary Disease 01/04/22 Warren Osborn MD #[address] [address] Consulting Physician Colon and Rectal Surgery 05/21/23 Ale Spain, [place] Nurse Rural Electrification Engineer 09/05/23 Chetan Do MD #[address] [phone] Consulting Physician Endocrinology 01/23/24 documented as of this encounter
--- OUTSIDE RECORDS SUMMARY | 2024-03-24 13:01 | XMS_ITS | Encounter Summary ---
Author Organization [facility] Address [address] [place] [address] Phone Care Team Providers Care Trailer Park Manager Name Role Phone Ariel Christiansen MD Unavailable [phone] Parmjit Vogel MD Unavailable [phone] Nicolas Greer MD Primary Care Provider [phone] Keny Saldaña APRN, MARY Unavailable Cristian Dewitt MD Unavailable Kate Kurtz III, MD, Courtney Unavailable [phone] Raghu Green MD Unavailable Warren Osborn MD Unavailable Ale Spain RN Unavailable Unavailable Chetan Do MD Unavailable Reason for Visit * Reason Comments Medication Refill Encounter Details Date Type Department Care Team (Late st Contact Info) Description 04/09/2023 Refill [facility] - Family Medicine [facility] #2 [place] [address] Nicolas Greer MD #[address] [address] Medication Refill Social History Tobacco Use Types Packs/Day Years Used Date Smoking Tobacco: Former Cigarettes 0.5 50 Smokeless Tobacco: Never Alcohol Use Standard Drinks/Week Comments No 0 (1 standard drink = 0.6 oz pur e alcohol) [facility] Utilities Answer Date Recorded In the past 12 months has e electric, gas, oil, or water company threatened to shut off services in your home? Patient declined 04/04/2023 Social Connection and Isolation Panel [NHANES] A nswer Date Recorded In a typical week, how many times do you talk on the phone with family, friends, or neighbors? Patient declined 04/04/2023 How often do you get togethe r with friends or relatives? Patient declined 04/04/2023 How often do you attend restorationist or zoroastrianism serv ices? Patient declined 04/04/2023 Do you belong to any clubs o r organizations such as restorationist groups, unions, fraternal or athletic groups, or school groups? Patient declined 04/04/2023 How often do you attend meet ings of the clubs or organizations you belong to? Patient declined 04/04/2023 Are you , , di vorced, , never , or living with a partner? Patient declined 04/04/2023 AUDIT-C Answer Date Recorded Q1: How often do you have a drink containing alc ohol? Patient declined 04/04/2023 Q2: How many drinks containi ng alcohol do you have on a typical day when you are drinking? Patient declined 04/04/2023 Q3: How often do you have si x or more drinks on one occasion? Patient declined 04/04/2023 Overall Financial Resource Strain (CARDIA) Answe r Date Recorded How hard is it for you to pa y for the very basics like food, housing, medical care, and heating? Patient declined 04/04/2023 PHQ-2 Answer Date Recorded Total Score - Questions 1-9 0 09/05 [facility] of Occupat ional Health - Occupational Stress Questionnaire Answer Date Recorded Do you feel stress - tense, restless, nervous, or anxious, or unable to sleep at night because your mind is troubled all the time - these days? Patient declined 04/04/2023 Exercise Vital Sign Answer Date Recorde d On average, how many days pe r week do you engage in moderate to strenuous exercise (like a brisk walk)? Patient declined On average, how many minutes do you engage in exercise at this level? Patient declined 04/04/2023 Hunger Vital Sign Answer Date Recorded Within the past 12 months, y ou worried that your food would run out before you got the money to buy more. Patient declined Within the past 12 months, t he food you bought just didn't last and you didn't have money to get more. Patient declined PRAPARE - Transportation Answer Date Re corded In the past 12 months, has l ack of transportation kept you from medical appointments or from getting medications? Patient declined 04/04/2023 In the past 12 months, has l ack of transportation kept you from meetings, work, or from getting things needed for daily living? Patient declined 04/04/2023 Housing Stability Vital Sign [...] place to sleep or slept in a alf (including now)? Patient declined 04/04/2023 Education Answer Date Recorded What is the [...] Job Start Date Job End Date Retired [employer] Not on file Not on file Not on file documented as of this encounter Miscellaneous Notes * Telephone Encounter - Nicolle Funk RN - 04/10/2023 8:21 AM CST PRN medication requires review from provider Per nursing clinical judgement, provider to review and approve the medication(s) order(s) if appropriate. Requested Prescriptions Pending Prescriptions Disp Refills albuterol 108 (90 Base) MCG/ACT Aerosol Solution [Pharmacy Med Name: ALBUTEROL HFA 90 MCG INHALER (MI] 8.5 g 1 Sig: INHALE TWO PUFFS BY MOUTH EVERY FOUR HOURS NEEDED FOR WHEEZING Short Acting Inhaled Beta-Agonists Protocol Passed - 04/09/2023 10:04 AM Passed - Visit with relevant provider in past 12 months or upcoming 90 days Recent Visits Date Type Provider Dept 04/04/23 Office Visit Nicolas Greer MD [facility] 12/21/22 Telemedicine Nicolas Greer MD [facility] 09/21/22 Office Visit Nicolas Greer MD [facility] 07/18/22 Telemedicine Nicolas Greer MD [facility] 06/21/22 Office Visit Nicolas Greer MD [facility] Showing recent visits within past 365 days and meeting all other requirements Future Appointments No visits were found meeting these conditions. Showing future appointments within next 90 days and meeting all other requirements ANCE CONSULTANT documented in this encounter Plan of Treatment Upcoming Encounters Date Type Department Care Team (Late st Contact Info) Description 04/24/2024 2:00 PM CDT Office Visit [facility] Medical [facility] - Endocrinology - [place] #2 [place] [address] Chetan Do MD #[address] [address] 08/14/2024 1:00 PM CDT Office Visit [facility] Medical [facility] - Pulmonology & Sleep Medicine [facility] #2 [place] [address] Raghu Green MD #2 [place] [address] 09/17/2024 1:00 PM CDT Office Visit [facility] - [facility] #2 [place] [address] Nicolas Greer MD #[address] [address] documented as of this encounter Visit Diagnoses Not on filedocumented in this encounter Additional Health Concerns Assessment Noted Time PHQ-9 Depression Total Score: 0 09/22/19 23 1:48 PM CDT documented as of this encounter Care Teams Trailer Park Manager Relationship Specialty Start Date End Date Nicolas Greer MD #[address] [address] PCP - General Family Medicine 09/08/21 Ariel Christiansen MD Consulting Physician Cardiovascular Disease - Cardiology 07/19/16 [place] [id number] [address] Senior Technical Analyst Pulmonary Disease 06/18/20 Keny Saldaña APRN, FOURDRINIER TENDER #[address] [address] Nurse Practitioner Advanced Practice Nurse 09/08/21 Cristian Dewitt MD #[address] [address] Consulting Physician Cardiovascular Disease - Cardiology 10/06/21 02/07/24 Yamel Kurtz III, MD #2 [place] [address] Consulting Physician Urology 09/11/22 Raghu Green MD #2 [place] [address] Consulting Physician Pulmonary Disease 01/04/22 Warren Osborn MD #[address] [address] Consulting Physician Colon and Rectal Surgery 05/21/23 Ale Spain, RN [place] Nurse Lead Generation Marketing Manager 09/05/23 Chetan Do MD #[address] [phone] Consulting Physician Endocrinology 01/23/24 documented as of this encounter
--- OUTSIDE RECORDS SUMMARY | 2024-03-24 13:01 | XMS_ITS | Encounter Summary ---
Author Organization [facility] Address [address] [place] [address] Phone Care Team Providers Care Data Warehouse Developer Name Role Phone Ariel Christiansen MD Unavailable [phone] Parmjit Vogel MD Unavailable [phone] Nicolas Greer MD Primary Care Provider [phone] Keny Saldaña APRN, PRINCIPAL CLERK TYPIST Unavailable Cristian Dewitt MD Unavailable Ale Black RN Unavailable Unavailable Ale Spain RN Unavailable Unavailable Jerardo MCCANN MD, Courtney Unavailable [phone] Raghu Green MD Unavailable Warren Osborn MD Unavailable Ale Spain RN Unavailable Unavailable Chetna Do MD Unavailable Reason for Visit * Reason Comments Medication Refill Encounter Details Date Type Department Care Team (Late st Contact Info) Description 08/01/2022 Refill [facility] - [facility] #2 [place] [address] Nicolas Greer MD #2 [facility] [address] [place] [address] Medication Refill Social History Tobacco Use Types [...] Job Start Date Job End Date Retired [employer] Not on file Not on file Not on file COVID-19 Exposure Response Date Recorded In the last 10 days, have yo u been in contact with someone who was confirmed or suspected to have Coronavirus/COVID-19? No / Unsure 07/11/2022 1:14 PM CDT documented as of this encounter Miscellaneous Notes * Telephone Encounter - Janie Adams RN - 08/02/2022 1:34 PM CDT Duplicate. Script signed and sent to pharmacy 07/27/22 documented in this encounter Plan of Treatment Upcoming Encounters Date Type Department Care Team (Late st Contact Info) Description 04/24/2024 2:00 PM CDT Office Visit [facility] - Endocrinology - [place] #2 [place] [address] Chetan Do MD #2 [facility] [address] [place] [address] 08/14/2024 1:00 PM CDT Office Visit [facility] - Pulmonology & Sleep Medicine - [place] #2 [place] [address] Raghu Green MD #2 [place] [address] 09/17/2024 1:00 PM CDT Office Visit [facility] - [facility] #2 [place] [address] Nicolas Greer MD #[address] [address] documented as of this encounter Visit Diagnoses Not on filedocumented in this encounter Additional Health Concerns Assessment Noted Time PHQ-9 Depression Total Score: 0 02/12/19 20 10:45 AM SHOP ASSISTANT documented as of this encounter Care Teams Data Warehouse Developer Relationship Specialty Start Date End Date Nicolas Greer MD #[address] [address] PCP - General Family Medicine 09/08/21 Ariel Christiansen MD Consulting Physician Cardiovascular Disease - Cardiology 07/19/16 [place] [id number] [address] Dish Machine Operator Pulmonary Disease 06/18/20 Keny Saldaña, WEB PROGRAMMER, PRINCIPAL CLERK TYPIST #[address] [address] Nurse Practitioner Advanced Practice Nurse 09/08/21 Cristian Dewitt MD #[address] [address] Consulting Physician Cardiovascular Disease - Cardiology 10/06/21 02/07/24 Ale Spain, RN [place] Engineer Station Mainline 03/15/22 02/12/23 Ale Spain, RN [place] Nurse Engineer Station Mainline 03/15/22 02/13/23 Yamel Kurtz III, MD #2 [place] [address] Consulting Physician Urology 09/11/22 Raghu Green MD #2 [place] [address] Consulting Physician Pulmonary Disease 01/04/22 Warren Osborn MD #[address] [address] Consulting Physician Colon and Rectal Surgery 05/21/23 Ale Spain, RN [place] Nurse Engineer Station [employer] 09/05/23 Chetan Do MD #[address] [address] Consulting Physician Endocrinology 01/23/24 documented as of this encounter
--- OUTSIDE RECORDS SUMMARY | 2024-03-24 13:01 | XMS_ITS | Encounter Summary ---
Author Organization [facility] Address [address] [place] [address] Phone Care Team Providers Care Hardwood Floor Installer Name Role Phone Ariel Christiansen MD Unavailable [phone] Parmjit Vogel MD Unavailable [phone] Nicolas Greer MD Primary Care Provider [phone] Keny Saldaña APRN, MACHINE REPAIRER MAINTENANCE Unavailable Cristian Dewitt MD Unavailable Ale Black RN Unavailable Unavailable Ale Spain RN Unavailable Unavailable Jerardo MCCANN MD, Courtney Unavailable [phone] Raghu Green MD Unavailable Warren Osborn MD Unavailable Ale Spain RN Unavailable Unavailable Chetan Do MD Unavailable Reason for Visit * Reason Comments Medication Refill Encounter Details Date Type Department Care Team (Late st Contact Info) Description 04/25/2022 Refill [facility] - [facility] - [place] #2 [place] [address] Nicolas Greer MD #2 [facility] [address] [place] [address] Medication Refill Social History Tobacco Use Types [...] Job Start Date Job End Date Retired [employer] Not on file Not on file Not on file COVID-19 Exposure Response Date Recorded In the last 10 days, have yo u been in contact with someone who was confirmed or suspected to have Coronavirus/COVID-19? No / Unsure 04/06/2022 12:47 PM GERIATRIC CARE MANAGER documented as of this encounter Miscellaneous Notes * Telephone Encounter - Nicolle Funk RN - 04/25/2022 1:33 PM CDT Refills on file documented in this encounter Plan of Treatment Upcoming Encounters Date Type Department Care Team (Late st Contact Info) Description 04/24/2024 2:00 PM CDT Office Visit [facility] - Endocrinology - [place] #2 [place] [address] Chetan Do MD #2 [facility] [address] [place] [address] 08/14/2024 1:00 PM CDT Office Visit [facility] - Pulmonology & Sleep Medicine - [place] #2 [place] [address] Raghu Green MD #2 [place] [address] 09/17/2024 1:00 PM CDT Office Visit [facility] - [facility] [place] #2 [place] [address] Nicolas Greer MD #[address] [address] documented as of this encounter Visit Diagnoses Not on filedocumented in this encounter Additional Health Concerns Assessment Noted Time PHQ-9 Depression Total Score: 0 02/12/19 20 10:45 AM GERIATRIC CARE MANAGER documented as of this encounter Care Teams Hardwood Floor Installer Relationship Specialty Start Date End Date Nicolas Greer MD #[address] [address] PCP - General Family Medicine 09/08/21 Ariel Christiansen MD Consulting Physician Cardiovascular Disease - Cardiology 07/19/16 [place] [address] [address] Police Detective Pulmonary Disease 06/18/20 Keny Saldaña, MEDIA SALES CONSULTANT, MACHINE REPAIRER MAINTENANCE #[address] [address] Nurse Practitioner Advanced Practice Nurse 09/08/21 Cristian Dewitt MD #[address] [address] Consulting Physician Cardiovascular Disease - Cardiology 10/06/21 02/07/24 Ale Spain RN [place] Campus Monitor 2/8/23 1/8/24 Ale Spain RN [place] Nurse Campus Monitor 03/15/22 02/13/23 Yamel Kurtz III, MD #2 [place] [address] Consulting Physician Urology 09/11/22 Raghu Green MD #2 [place] [address] Consulting Physician Pulmonary Disease 01/04/22 Warren Osborn MD #[address] [address] Consulting Physician Colon and Rectal Surgery 05/21/23 Ale Spain RN [place] Nurse Campus Monitor 09/05/23 Chetan Do MD #[address] [address] Consulting Physician Endocrinology 01/23/24 documented as of this encounter
--- OUTSIDE RECORDS SUMMARY | 2024-03-24 13:01 | XMS_ITS | Encounter Summary ---
Author Organization [facility] Address [address] [place] [address] Phone Care Team Providers Care Studio Manager Name Role Phone Ariel Christiansen MD Unavailable [phone] Parmjit Vogel MD Unavailable [phone] Nicolas Greer MD Primary Care Provider [phone] Keny Saldaña APRN, RESIDENTIAL THERAPIST Unavailable Cristian Dewitt MD Unavailable Unaruslani Ale Richard RN Unavailable Unavailable Ale Spain RN Unavailable Unavailable Jerardo MCCANN MD, Courtney Unavailable [phone] Raghu Green MD Unavailable Warren Osborn MD Unavailable Ale Spain RN Unavailable Unavailable Chetan Do MD Unavailable Encounter Details Date Type Department Care Team (Late st Contact Info) Description 01/19/2022 Lab Requisition [facility] 1 [place] [phone] Nicolas Greer MD #[address] [address] Hypercalcemia Social History Tobacco Use Types Packs/Day Years [...] Industry Job Start Date Job End Date [employer] Not on file Not on file Not on file COVID-19 Exposure Response Date Recorded In the last 10 days, have yo u been in contact with someone who was confirmed or suspected to have Coronavirus/COVID-19? No / Unsure 01/17/2022 4:43 PM YOUTH DEVELOPMENT PROFESSIONAL documented as of this encounter Plan of Treatment Upcoming Encounters Date Type Department Care Team (Late st Contact Info) Description 04/24/2024 2:00 PM CDT Office Visit [facility] - Endocrinology - [place] #2 [place] [phone] Chetan Do MD #[address] [phone] 08/14/2024 1:00 PM CDT Office Visit [facility] - Pulmonology & Sleep Medicine [facility] #2 [place] [phone] Raghu Green MD #2 [place] [address] 09/17/2024 1:00 PM CDT [facility] Medicine - [place] #2 [place] [address] Nicolas Greer MD #[address] [address] documented as of this encounter Procedures Procedure Name Priority Date/Time Associated Diagnosis Comments BASIC METABOLIC PANEL W/ CALCIUM TOTAL Routine 01/19/2022 9:22 AM YOUTH DEVELOPMENT PROFESSIONAL Hypercalcemia documented in this encounter Results * (ABNORMAL) BASIC METABOLIC PANEL W/ CALCIUM TOTAL (01/19/2022 9:22 AM YOUTH DEVELOPMENT PROFESSIONAL) SODIUM 139 136 - 144 mmol/L 01/19/2022 10:53 AM [facility] POTASSIUM 4.1 3.5 - 5.1 mmol/L 01/19/2022 10:53 AM [facility] CHLORIDE 95(L) 100 - 110 mmol/L 01/19/2022 10:53 AM [facility] CO2, VENOUS 38(H) 22 - 32 mmol/L 01/19/2022 10:53 AM [facility] ANION GAP 10.1 8.0 - 20.0 mmol/L 01/19/2022 10:53 AM [facility] GLUCOSE 112(H) 70 - 99 mg/dL 01/19/2022 10:53 AM [facility] BUN 17 8 - 23 mg/dL 01/19/2022 10:53 AM [facility] CREATININE, BLOOD 0.84 0.60 - 1.10 mg/dL 01/19/2022 10:53 AM [facility] BUN/CREATININE RATIO 20 12 - 20 ratio 01/19/2022 10:53 AM [facility] CALCIUM 10.7(H) 8.9 - 10.3 mg/dL 01/19/2022 10:53 AM [facility] GFR, ESTIMATED >60 >=60 01/19/2022 10:53 AM [facility] Comment: Creatinine Clearance is the preferred criteria for selecting drug dose adjustments in renally impaired patients. The GFR is provided as additional pertinent clinical information. GFR is reported in mL/min/1.73 sq m. Calculation based on the Chronic Kidney Disease Epidemiology Collaboration (CKD- EPI) equation refit without adjustment for race. GFR, EST. >60 >=60 022 10:53 AM YOUTH DEVELOPMENT PROFESSIONAL [facility] GFR, EST. NONAFRICAN >60 >=60 01/19/2022 10:53 AM YOUTH DEVELOPMENT PROFESSIONAL [facility] Blood No Phlebotomy Charged / Unknown 01/19/2022 9:22 AM YOUTH DEVELOPMENT PROFESSIONAL 01/19/2022 10:34 AM YOUTH DEVELOPMENT PROFESSIONAL Nicolas Greer MD CHEMISTRY ORDERABLES Final Result [facility] #1 [place] [address] documented in this encounter Visit Diagnoses Diagnosis Hypercalcemia documented in this encounter Additional Health Concerns Assessment Noted Time PHQ-9 Depression Total Score: 0 02/12/19 20 10:45 AM YOUTH DEVELOPMENT PROFESSIONAL documented as of this encounter Care Teams Studio Manager Relationship Specialty Start Date End Date Nicolas Greer MD #[address] [address] PCP - General Family Medicine 09/08/21 Ariel Christiansen MD Consulting Physician Cardiovascular Disease - Cardiology 07/19/16 [place] [id number] [address] Concrete Technician Pulmonary Disease 06/18/20 Keny Saldaña, BULL RIDER, RESIDENTIAL THERAPIST #[address] [address] Nurse Practitioner Advanced Practice Nurse 09/08/21 Cristian Dewitt MD #[address] [address] Consulting Physician Cardiovascular Disease - Cardiology 10/06/21 02/07/24 Ale Spain, RN [place] Stocking Inspector 03/15/22 02/12/23 Ale Spain, RN [place] Nurse Stocking Inspector 03/15/22 02/13/23 Yamel Kurtz III, MD #2 [place] [address] Consulting Physician Urology 09/11/22 Raghu Green MD #2 [place] [address] Consulting Physician Pulmonary Disease 01/04/22 Warren Osborn MD #[address] [address] Consulting Physician Colon and Rectal Surgery 05/21/23 Ale Spain, RN [place] Nurse Stocking Inspector 09/05/23 Chetan Do MD #[address] [phone] Consulting Physician Endocrinology 01/23/24 documented as of this encounter
--- OUTSIDE RECORDS SUMMARY | 2024-03-24 13:01 | XMS_ITS | Encounter Summary ---
Author Organization [facility] Address [address] [place] [place] [address] Phone Care Team Providers Care Battery Filler Name Role Phone Ariel Christiansen MD Unavailable [phone] Parmjit Vogel MD Unavailable [phone] Nicolas Greer MD Primary Care Provider [phone] Keny Saldaña APRN, WARDROBE IMAGE CONSULTANT Unavailable Cristian Dewitt MD Unavailable Ale Black RN Unavailable Unavailable Ale Spain RN Unavailable Unavailable Jerardo MCCANN MD, Courtney Unavailable [phone] Raghu Green MD Unavailable Warren Osborn MD Unavailable Ale Spain RN Unavailable Unavailable Chetan Do MD Unavailable Reason for Visit * Reason Comments Medication Refill Encounter Details Date Type Department Care Team (Late st Contact Info) Description 01/05/2023 Refill [facility] #2 [place] [address] Nicolas Greer MD #[address] [address] Medication Refill Social History Tobacco Use Types Packs/Day Years Used Date Smoking Tobacco: Former Cigarettes 0.5 50 Smokeless Tobacco: Never Alcohol Use Standard Drinks/Week Comments No 0 (1 standard drink = 0.6 oz pur e alcohol) PHQ-2 Answer Date Recorded Total Score - Questions 1-9 0 09/05 Education Answer Date Recorded What is the [...] Job Start Date Job End Date Retired [employer] Not on file Not on file Not on file documented as of this encounter Miscellaneous Notes * Telephone Encounter - Nicolle Funk RN - 01/05/2023 4:48 PM CST Furosemide OR Turosemide OR both?? Per nursing clinical judgement, provider to review and approve the medication(s) order(s) if appropriate. Requested Prescriptions Pending Prescriptions Disp Refills folic acid (FOLVITE) 1 MG Tablet [Pharmacy Med Name: FOLIC ACID 1 MG TABLET] 90 Tablet 3 Sig: TAKE ONE TABLET BY MOUTH DAILY #0100 Folic Acid Protocol Passed - 01/05/2023 3:02 PM Passed - Visit with relevant provider in past 12 months or upcoming 90 days Recent Visits Date Type Provider Dept 12/21/22 Telemedicine Nicolas Greer MD [facility] 09/21/22 Office Visit Nicolas Greer MD [facility] 07/18/22 Telemedicine Nicolas Greer MD [facility] 06/21/22 Office Visit Nicolas Greer MD [facility] 03/22/22 Office Visit Nicolas Greer MD [facility] 03/07/22 Telemedicine Nicolas Greer MD [facility] 02/13/22 Telemedicine Nicolas Greer MD [facility] 01/11/22 Telemedicine Nicolas Greer MD [facility] 01/09/22 Telemedicine Keny Saldaña APRN, MARY [facility] Show[facility] recent visits within past 365 days and meeting all other requirements Future Appointments No visits were found meeting these conditions. Showing future appointments within next 90 days and meeting all other requirements levothyroxine (SYNTHROID) 137 MCG Tablet [Pharmacy Med Name: LEVOTHYROXINE 137 MCG TABLET] 90 Tablet 3 Sig: TAKE 1 TABLET BY MOUTH DAILY. #1000 Thyroid Hormones Protocol Passed - 01/05/2023 3:02 PM Passed - Visit with relevant provider in past 12 months or upcoming 90 days Recent Visits Date Type Provider Dept 12/21/22 Telemedicine Nicolas Greer MD [facility] 09/21/22 Office Visit Nicolas Greer MD [facility] 07/18/22 Telemedicine Nicolas Greer MD [facility] 06/21/22 Office Visit Nicolas Greer MD [facility] 03/22/22 Office Visit Nicolas Greer MD [facility] 03/07/22 Telemedicine Nicolas Greer MD [facility] 02/13/22 Telemedicine Nicolas Greer MD [facility] 01/11/22 Telemedicine Nicolas Greer MD [facility] 01/09/22 Telemedicine Keny Saldaña APRN, WARDROBE IMAGE CONSULTANT [facility] Showing recent visits within past 365 days and meeting all other requirements Future Appointments No visits were found meeting these conditions. Showing future appointments within next 90 days and meeting all other requirements Passed - Normal TSH in past 12 months TSH Date Value Ref Range Status 02/15/2022 1.600 0.270 - 4.200 mIU/L Final furosemide (LASIX) 20 MG Tablet [Pharmacy Med Name: FUROSEMIDE 20 MG TABLET] 90 Tablet 3 Sig: TAKE ONE TABLET BY MOUTH DAILY #1000 Diuretics Protocol Passed - 01/05/2023 3:02 PM Passed - Serum potassium on record [...] Clinician-entered: BP Readings from Last 3 Encounters: 11/13/22 145/90 09/21/22 132/84 09/11/22 128/86 Patient-entered: No data recorded Passed - Visit with relevant provider in past 12 months or upcoming 90 days Recent Visits Date Type Provider Dept 12/21/22 Telemedicine Nicolas Greer MD [facility] 09/21/22 Office Visit Nicolas Greer MD [facility] 07/18/22 Telemedicine Nicolas Greer MD [facility] 06/21/22 Office Visit Nicolas Greer MD [facility] 03/22/22 Office Visit Nicolas Greer MD [facility] 03/07/22 Telemedicine Nicolas Greer MD [facility] 02/13/22 Telemedicine Nicolas Greer MD [facility] 01/11/22 Telemedicine Nicolas Greer MD [facility] 01/09/22 Telemedicine Keny Saldaña, SEASONAL RETAIL MERCHANDISER, WARDROBE IMAGE CONSULTANT [facility] Showing recent visits within past 365 days [...] ROPINIROLE HCL 0.25 MG TABLET] 90 Tablet 3 Sig: TAKE ONE TABLET BY MOUTH NIGHTLY #0001 Antiparkinson Dopaminergics and COMT Protocol Passed - 01/05/2023 3:02 PM Passed - Visit with relevant provider in the past 9 months or upcoming 90 days Recent Visits Date Type Provider Dept 09/21/22 [facility]22 Office Visit Nicolas Greer MD [facility] Showing recent visits within past 270 days and meeting all other requirements Future Appointments No visits were found meeting these conditions. 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 [address] Raghu Green MD #2 [place] [address] 09/17/2024 1:00 PM CDT Office Visit [facility] - Family Medicine - [place] #2 [facility] [place] [address] Nicolas Greer MD #[address] [place] [address] documented as of this encounter Visit Diagnoses Not on filedocumented in this encounter Additional Health Concerns Assessment Noted Time PHQ-9 Depression Total Score: 0 09/22/19 1:48 PM CDT documented as of this encounter Care Teams Battery Filler Relationship Specialty Start Date End Date Nicolas Greer MD #[address] [address] PCP - General Family Medicine 09/08/21 Ariel Christiansen MD Consulting Physician Cardiovascular Disease - Cardiology 07/19/16 [place] [id number] [address] Motorboat Mechanic Inboard/Outboard Pulmonary Disease 06/18/20 Keny Saldaña APRN, WARDROBE IMAGE CONSULTANT #[address] [address] Nurse Practitioner Advanced Practice Nurse 09/08/21 Cristian Dewitt MD #[address] [address] Consulting Physician Cardiovascular Disease - Cardiology 10/06/21 02/07/24 Ale Spain, RN [place] Poultry Hatchery Laborer 03/15/22 02/12/23 Ale Spain, RN [place] Nurse Poultry Hatchery Laborer 03/15/22 02/13/23 Yamel Kurtz III, MD #2 [place] [address] Consulting Physician Urology 09/11/22 Raghu Green MD #2 [place] [address] Consulting Physician Pulmonary Disease 01/04/22 Warren Osborn MD #[address] [address] Consulting Physician Colon and Rectal Surgery 05/21/23 Ale Spain, RN [place] Nurse Poultry Hatchery Laborer 09/05/23 Chetan Do MD #2 [facility] [address] [place] [address] Consulting Physician Endocrinology 01/23/24 documented as of this encounter
--- OUTSIDE RECORDS SUMMARY | 2024-03-24 13:01 | XMS_ITS | Encounter Summary ---
Author Organization [facility] Address [address] [place] [address] [place] [address] Phone Care Team Providers Care Ore Roaster Name Role Phone Ariel Christiansen MD Unavailable [phone] Parmjit Vogel MD Unavailable [phone] Nicolas Greer MD Primary Care Provider [phone] Keny Saldaña APRN, C D STRIPPER Unavailable Cristian Dewitt MD Unavailable Unaruslani Ale Richard RN Unavailable Unavailable Ale Spain RN Unavailable Unavailable Jerardo MCCANN MD, Courtney Unavailable [phone] Raghu Green MD Unavailable Warren Osborn MD Unavailable Ale Spain RN Unavailable Unavailable Chetan Do MD Unavailable Encounter Details Date Type Department Care Team (Late st Contact Info) Description 01/03/2022 [facility] 1 [place] [phone] Nicolas Greer MD #[address] [address] Hypercalcemia Social History Tobacco Use Types Packs/Day [...] Industry Job Start Date Job End Date [employer] Not on file Not on file Not on file COVID-19 Exposure Response Date Recorded In the last 10 days, have yo u been in contact with someone who was confirmed or suspected to have Coronavirus/COVID-19? No / Unsure 01/05/2022 8:15 AM MILLINERY DEPARTMENT MANAGER documented as of this encounter Plan of Treatment Upcoming Encounters Date Type Department Care Team (Late st Contact Info) Description 04/24/2024 2:00 PM CDT Office Visit [facility] Medical Group - Endocrinology - [place] #2 [place] [address] Chetan Do MD #[address] [phone] 08/14/2024 1:00 PM CDT Office Visit [facility] - Pulmonology & Sleep Medicine [facility] #2 [place] [address] Raghu Green MD #2 [place] [address] 09/17/2024 1:00 PM CDT Office Visit [facility] - [facility] Medicine - [place] #2 [place] [address] iNcolas Greer MD #[address] [address] documented as of this encounter Procedures Procedure Name Priority Date/Time Associated Diagnosis Comments IONIZED CALCIUM (ICA) Routine 01/03/2022 1:43 PM MILLINERY DEPARTMENT MANAGER Hypercalcemia documented in this encounter Results * (ABNORMAL) IONIZED CALCIUM (ICA) (01/03/2022 1:43 PM MILLINERY DEPARTMENT MANAGER) CALCIUM IONIZED 1.41(H) 1.19 - 1.31 mmol/L 01/03/2022 2:57 PM MILLINERY DEPARTMENT MANAGER [facility] Blood No Phlebotomy Charged / Unknown 01/03/2022 1:43 PM MILLINERY DEPARTMENT MANAGER 01/03/2022 2:37 PM MILLINERY DEPARTMENT MANAGER Nicolas Greer MD CHEMISTRY ORDERABLES Final Result [facility] #1 [place] [address] documented in this encounter Visit Diagnoses Diagnosis Hypercalcemia documented in this encounter Additional Health Concerns Assessment Noted Time PHQ-9 Depression Total Score: 0 02/12/19 20 10:45 AM MILLINERY DEPARTMENT MANAGER documented as of this encounter Care Teams Ore Roaster Relationship Specialty Start Date End Date Nicolas Greer MD #[address] [address] PCP - General Family Medicine 09/08/21 Ariel Christiansen MD Consulting Physician Cardiovascular Disease - Cardiology 07/19/16 [place] [id number] [address] Grease Packer Pulmonary Disease 06/18/20 Keny Saldaña APRN, C D STRIPPER #[address] [address] Nurse Practitioner Advanced Practice Nurse 09/08/21 Cristian Dewitt MD #[address] [address] Consulting Physician Cardiovascular Disease - Cardiology 10/06/21 02/07/24 Ale Spain, RN [place] Epidemiologist 03/15/22 02/12/23 Ale Spain, RN [place] Nurse Epidemiologist 03/15/22 02/13/23 Yamel Kurtz III, MD #2 [place] [address] Consulting Physician Urology 09/11/22 Raghu Green MD #2 [place] [address] Consulting Physician Pulmonary Disease 01/04/22 Warren Osborn MD #[address] [address] Consulting Physician Colon and Rectal Surgery 05/21/23 Ale Spain, RN [place] Nurse Epidemiologist 09/05/23 Chetan Do MD #[address] [phone] Consulting Physician Endocrinology 01/23/24 documented as of this encounter
--- OUTSIDE RECORDS SUMMARY | 2024-03-24 13:01 | XMS_ITS | Encounter Summary ---
Author Organization [facility] Address [address] [place] [address] Phone Care Team Providers Care Failure Analysis Engineer Name Role Phone Ariel Christiansen MD Unavailable [phone] Parmjit Vogel MD Unavailable [phone] Nicolas Greer MD Primary Care Provider [phone] Keny Saldaña APRN, SALESPERSON M[employer] HATS Unavailable Cristian Dewitt MD Unavailable Ale Black RN Unavailable Unavailable Ale Spain RN Unavailable Unavailable Jerardo MCCANN MD, Courtney Unavailable [phone] Raghu Green MD Unavailable Warren Osborn MD Unavailable Ale Spain RN Unavailable Unavailable Chetan Do MD Unavailable Reason for Visit * Reason Comments Medication Refill Encounter Details Date Type Department Care Team (Late st Contact Info) Description 01/31/2023 Refill [facility] [place] #2 [place] [address] Nicolas Greer MD #[address] [address] Medication Refill Social History Tobacco Use Types [...] Job Start Date Job End Date Retired [employer] Not on file Not on file Not on file documented as of this encounter Miscellaneous Notes * Telephone Encounter - Nicolle Funk RN - 02/01/2023 7:58 AM CST New Rx by Dr Green 01/08/23 for 30 days supply - ok to continue medication? Per nursing clinical judgement, provider to review and approve the medication(s) order(s) if appropriate. Requested Prescriptions Pending Prescriptions Disp Refills esomeprazole (NexIUM) 40 MG CAPSULE DELAYED RELEASE [Pharmacy Med Name: ESOMEPRAZOLE MAG DR 40 MG CAP] 90 Capsule 1 Sig: TAKE ONE CAPSULE BY MOUTH DAILY BEFORE BREAKFAST #1000 Proton Pump Inhibitors Protocol Passed - 01/31/2023 2:50 PM Passed - Visit with relevant provider [...] [facility] 02/13/22 Telemedicine Nicolas Greer MD [facility] Showing recent visits within past 365 days and meeting all other requirements Future Appointments Date Type Provider Dept 04/04/23 Appointment Nicolas Greer MD [facility] Showing future appointments within next 90 days and meeting all other requirements L REAMER documented in this encounter Plan of Treatment Upcoming Encounters Date Type Department Care Team (Late st Contact Info) Description 04/24/2024 2:00 PM CDT Office Visit [facility] Medical [facility] - Endocrinology - [place] #2 [place] [address] Chetan Do MD #[address] [phone] 08/14/2024 1:00 PM CDT Office Visit [facility] Medical [facility] - Pulmonology & Sleep Medicine - [place] #2 [place] [address] Raghu Green MD #2 [place] [address] 09/17/2024 1:00 PM CDT Office Visit [facility] Medical [facility] - Family Medicine - [place] #2 [place] [address] Nicolas Greer MD #[address] [place] [address] documented as of this encounter Visit Diagnoses Not on filedocumented in this encounter Additional Health Concerns Assessment Noted Time PHQ-9 Depression Total Score: 0 09/22/19 1:48 PM CDT documented as of this encounter Care Teams Failure Analysis Engineer Relationship Specialty Start Date End Date Nicolas Greer MD #[address] [address] PCP - General Family Medicine 09/08/21 Ariel Christiansen MD Consulting Physician Cardiovascular Disease - Cardiology 07/19/16 [place] [address] [facility] [address] [place] [address] Head Charrer Pulmonary Disease 06/18/20 Keny Saldaña APRN, SALESPERSON MEN'S HATS #[address] [address] Nurse Practitioner Advanced Practice Nurse 09/08/21 Cristian Dewitt MD #[address] [address] Consulting Physician Cardiovascular Disease - Cardiology 10/06/21 02/07/24 Ale Spain, RN [place] Husbandry Technician 03/15/22 02/12/23 Ale Spain, RN [place] Nurse Husbandry Technician 03/15/22 02/13/23 Yamel Kurtz III, MD #2 [place] [address] Consulting Physician Urology 09/11/22 Raghu Green MD #2 [place] [phone] Consulting Physician Pulmonary Disease 01/04/22 Warren Osborn MD #[address] [address] Consulting Physician Colon and Rectal Surgery 05/21/23 Ale Spain, RN [place] Nurse Husbandry Technician 09/05/23 Chetan Do MD #[address] [address] Consulting Physician Endocrinology 01/23/24 documented as of this encounter
--- OUTSIDE RECORDS SUMMARY | 2024-03-24 13:01 | XMS_ITS | Encounter Summary ---
Author Organization [facility] Address [address] [place] [address] Phone Care Team Providers Care Laminate Floor Installer Name Role Phone Ariel Christiansen MD Unavailable [phone] Parmjit Vogel MD Unavailable [phone] Nicolas Greer MD Primary Care Provider [phone] Keny Saldaña APRN, OVEN UNLOADER Unavailable Cristian Dewitt MD Unavailable Ale Black RN Unavailable Unavailable Ale Spain RN Unavailable Unavailable Jerardo MCCANN MD, Courtney Unavailable [phone] Raghu Green MD Unavailable Warren Osborn MD Unavailable Ale Spain RN Unavailable Unavailable Chetan Do MD Unavailable Reason for Visit * Reason Comments Medication Refill Encounter Details Date Type Department Care Team (Late st Contact Info) Description 01/24/2023 Refill [facility] - [place], [place] #2 [place] [address] Nicolas Greer MD #[address] [address] Medication Refill Social History Tobacco Use Types [...] Job Start Date Job End Date Retired [employer] Not on file Not on file Not on file documented as of this encounter Miscellaneous Notes * Telephone Encounter - Nicolle Funk RN - 01/24/2023 11:43 AM CST PRN medication requires review from provider Per nursing clinical judgement, provider to review and approve the medication(s) order(s) if appropriate. Requested Prescriptions Pending Prescriptions Disp Refills albuterol 108 (90 Base) MCG/ACT Aerosol Solution [Pharmacy Med Name: ALBUTEROL HFA 90 MCG INHALER (MA] 18 g 1 Sig: INHALE TWO PUFFS BY MOUTH EVERY FOUR HOURS NEEDED FOR WHEEZING Short Acting Inhaled Beta-Agonists Protocol Passed - 01/24/2023 11:37 AM Passed - Visit with relevant provider in past 12 months or upcoming 90 days Recent Visits Date Type Provider Dept 12/21/22 Telemedicine Nicolas Greer MD [facility] 09/21/22 Office Visit Nicolsa Greer MD [facility] 07/18/22 Telemedicine Nicolas Greer MD [facility] 06/21/22 Office Visit Nicolas Greer MD [facility] 03/22/22 Office Visit Nicolas Greer MD [facility] 03/07/22 Telemedicine Nicolas Greer MD [facility] 02/13/22 Telemedicine Nicolas Greer MD [facility] Showing recent visits within past 365 days and meeting all other requirements Future Appointments Date Type Provider Dept 04/04/23 Appointment Nicolas Greer MD [facility] Showing future appointments within next 90 days and meeting all other requirements RY ROCK DRILLING MACHINE OPERATOR documented in this encounter Plan of Treatment Upcoming Encounters Date Type Department Care Team (Late st Contact Info) Description 04/24/2024 2:00 PM CDT Office Visit [facility] Medical [facility] - Endocrinology - [place] #2 [facility] [place] [address] Chetan Do MD #[address] [phone] 08/14/2024 1:00 PM CDT Office Visit [facility] Medical [facility] - Pulmonology & Sleep Medicine - [place] #2 [facility] [place] [address] Raghu Green MD #2 [place] [address] 09/17/2024 1:00 PM CDT Office Visit [facility] Medical [facility] - Family Medicine - [place] #2 [place] [address] Nicolas Greer MD #2 [facility] [address] [place] [address] documented as of this encounter Visit Diagnoses Not on filedocumented in this encounter Additional Health Concerns Assessment Noted Time PHQ-9 Depression Total Score: 0 09/22/19 1:48 PM CDT documented as of this encounter Care Teams Laminate Floor Installer Relationship Specialty Start Date End Date Nicolas Greer MD #[address] [address] PCP - General Family Medicine 09/08/21 Ariel Christiansen MD Consulting Physician Cardiovascular Disease - Cardiology 07/19/16 [place] [address] [facility] [address] [place] [address] Dust Box Worker Pulmonary Disease 06/18/20 Keny Saldaña APRN, OVEN UNLOADER #[address] [address] Nurse Practitioner Advanced Practice Nurse 09/08/21 Cristian Dewitt MD #[address] [address] Consulting Physician Cardiovascular Disease - Cardiology 10/06/21 02/07/24 Ale Spain, RN [place] Senior Staff Psychologist 03/15/22 02/12/23 Ale Spain, RN [place] Nurse Senior Staff Psychologist 03/15/22 02/13/23 Yamel Kurtz III, MD #2 [place] [address] Consulting Physician Urology 09/11/22 Raghu Green MD #2 [place] [phone] Consulting Physician Pulmonary Disease 01/04/22 Warren Osborn MD #[address] [address] Consulting Physician Colon and Rectal Surgery 05/21/23 Ale Spain, RN [place] Nurse Senior Staff Psychologist 09/05/23 Chetan Do MD #[address] [address] Consulting Physician Endocrinology 01/23/24 documented as of this encounter
--- OUTSIDE RECORDS SUMMARY | 2024-03-24 13:01 | XMS_ITS | Encounter Summary ---
Author Organization [facility] Address [address] [place] [address] Phone Care Team Providers Care Manager Banking Name Role Phone Ariel Christiansen MD Unavailable [phone] Parmjit Vogel MD Unavailable [phone] Nicolas Greer MD Primary Care Provider [phone] Keny Saldaña APRN, TOOL SHAPER SET UP OPERATOR Unavailable Cristian Dewitt MD Unavailable Ale Black RN Unavailable Unavailable Ale Spain RN Unavailable Unavailable Jerardo MCCANN MD, Courtney Unavailable [phone] Raghu Green MD Unavailable Warren Osborn MD Unavailable Ale Spain RN Unavailable Unavailable Chetan Do MD Unavailable Reason for Visit * Reason Comments Medication Refill Encounter Details Date Type Department Care Team (Late st Contact Info) Description 06/06/2022 Refill [facility] - [facility] [place] #2 [place] [address] Nicolas Greer MD #[address] [address] Medication Refill Social History Tobacco Use Types [...] Industry Job Start Date Job End Date [employer] Not on file Not on file Not on file documented as of this encounter Miscellaneous Notes * Telephone Encounter - Karoline Martinez RN - 06/07/2022 10:42 AM CDT Medication failed the protocol, provider to review and approve the medication order if appropriate. Requested Prescriptions Pending Prescriptions Disp Refills traMADol (ULTRAM) 50 MG Tablet [Pharmacy Med Name: TRAMADOL HCL 50 MG TABLET] 90 Tablet Sig: TAKE ONE TABLET BY MOUTH EVERY EIGHT HOURS NEEDED FOR PAIN Not Delegated - Opioid Agonists Protocol Failed - 06/06/2022 11:00 AM Failed - This refill cannot be delegated Passed - Visit with relevant provider in past 12 months or upcoming 90 days Recent Visits Date Type Provider Dept 03/22/22 Office Visit Nicolas Greer MD [facility] 03/07/22 Telemedicine Nicolas Greer MD [facility] 02/13/22 Telemedicine Nicolas Greer MD [facility] 01/11/22 Telemedicine Nicolas Greer MD [facility] 01/09/22 Telemedicine Keny Saldaña APRN, MARY [facility] 12/19/21 Office Visit Nicolas Greer MD [facility] 09/08/21 Office Visit Keny Saldaña APRN, TOOL SHAPER SET UP OPERATOR [facility] 08/03/21 Telemedicine [facility] 07/21/21 Telemedicine [facility] MD [facility] Showing recent visits within past 365 days and meeting all other requirements Future Appointments Date Type Provider Dept 06/21/22 Appointment Nicolas Gre[facility] MD [facility] Showing future appointments within next 90 days and meeting all other requirements documented in this encounter Plan of Treatment Upcoming Encounters Date Type Department Care Team (Late st Contact Info) Description 04/24/2024 2:00 PM CDT Office Visit [facility] Medical [facility] - Endocrinology - [place] #2 [place] [address] Chetan Do MD #[address] [address] 08/14/2024 1:00 PM CDT Office Visit [facility] Medical [facility] - Pulmonology & Sleep Medicine - [place] #2 [facility] [place] [address] Raghu Green MD #2 [place] [address] 09/17/2024 1:00 PM CDT Office Visit [facility] Medical [facility] - Family Medicine - [place] #2 [place] [address] Nicolas Greer MD #[address] [address] documented as of this encounter Visit Diagnoses Diagnosis Chronic pain of both knees documented in this encounter Additional Health Concerns Assessment Noted Time PHQ-9 Depression Total Score: 0 02/12/19 10:45 AM LUNG SPLITTER documented as of this encounter Care Teams Manager Banking Relationship Specialty Start Date End Date Nicolas Greer MD #[address] [address] PCP - General Family Medicine 09/08/21 Ariel Christiansen MD Consulting Physician Cardiovascular Disease - Cardiology 07/19/16 [place] [address] [address] Eating Disorder Specialist Pulmonary Disease 06/18/20 Keny Saldaña APRN, TOOL SHAPER SET UP OPERATOR #[address] [address] Nurse Practitioner Advanced Practice Nurse 09/08/21 Cristian Dewitt MD #[address] [address] Consulting Physician Cardiovascular Disease - Cardiology 10/06/21 02/07/24 Ale Spain, RN [place] Senior Web Designer 03/15/22 02/12/23 Ale Spain, RN [place] Nurse Senior Web Designer 03/15/22 02/13/23 Yamel Kurtz III, MD #2 [place] [address] Consulting Physician Urology 09/11/22 Raghu Green MD #2 [place] [phone] Consulting Physician Pulmonary Disease 01/04/22 Warren Osborn MD #[address] [address] Consulting Physician Colon and Rectal Surgery 05/21/23 Ale Spain, RN [place] Nurse Senior Web Designer 09/05/23 Chetan Do MD #[address] [address] Consulting Physician Endocrinology 01/23/24 documented as of this encounter
--- OUTSIDE RECORDS SUMMARY | 2024-03-24 13:01 | XMS_ITS | Encounter Summary ---
Author Organization [facility] Address [address] [place] [address] Phone Care Team Providers Care Small Animal Veterinarian Name Role Phone Ariel Christiansen MD Unavailable [phone] Parmjit Vogel MD Unavailable [phone] Nicolas Greer MD Primary Care Provider [phone] Keny Saldaña APRN, MARY Unavailable Cristian Dewitt MD Unavailable Kate Kurtz III, MD, Courtney Unavailable [phone] Raghu Green MD Unavailable Warren Osborn MD Unavailable Ale Spain RN Unavailable Unavailable Chetan Do MD Unavailable Reason for Visit * Reason Comments Medication Refill Encounter Details Date Type Department Care Team (Late st Contact Info) Description 03/02/2023 Refill [facility] - Family Medicine [facility] [place] #2 [place] [address] Nicolas Greer MD #[address] [address] Medication Refill Social History Tobacco Use Types [...] Industry Job Start Date Job End Date [employer] Not on file Not on file Not on file documented as of this encounter Miscellaneous Notes * Telephone Encounter - Nicolle Funk RN - 03/02/2023 2:32 PM CST Medication warning Per nursing clinical judgement, provider to review and approve the medication(s) order(s) if appropriate. Requested Prescriptions Pending Prescriptions Disp Refills Breztri [employer] 160-9-4.8 MCG/ACT Aerosol [Pharmacy Med Name: BREZTRI AEROSPHERE INHALER] 10.7 g2 Sig: INHALE TWO PUFFS BY MOUTH IN THE MORNING AND AT BEDTIME Inhaled Combinations Protocol Passed - 03/02/2023 10:25 AM Passed - Visit with relevant provider [...] 03/07/22 Telemedicine Nicolas Greer MD [facility] Showing recent visits within past 365 days and meeting all other requirements Future Appointments Date Type Provider Dept 04/04/23 Appointment Nicolas Greer MD [facility] Showing future appointments within next 90 days and meeting all other requirements Passed - Active short-acting beta agonist prescription C TEACHER documented in this encounter Plan of Treatment Upcoming Encounters Date Type Department Care Team (Late st Contact Info) Description 04/24/2024 2:00 PM CDT Office Visit [facility] Medical [facility] - Endocrinology - [place] #2 [place] [address] Chetan Do MD #2 [facility] [address] [place] [address] 08/14/2024 1:00 PM CDT Office Visit [facility] Medical [facility] - Pulmonology & Sleep Medicine - [place] #2 [place] [address] Raghu Green MD #2 [place] [address] 09/17/2024 1:00 PM CDT Office Visit [facility] Medical [facility] - Family Medicine - [place] #2 [place] [address] Nicolas Greer MD #2 [facility] [address] [place] [address] documented as of this encounter Visit Diagnoses Not on filedocumented in this encounter Additional Health Concerns Assessment Noted Time PHQ-9 Depression Total Score: 0 09/22/19 23 1:48 PM CDT documented as of this encounter Care Teams Small Animal Veterinarian Relationship Specialty Start Date End Date Nicolas Greer MD #2 [facility] [address] [place] [address] PCP - General Family Medicine 09/08/21 Ariel Christiansen MD Consulting Physician Cardiovascular Disease - Cardiology 07/19/16 [place] [address] [address] Health Concierge Pulmonary Disease 06/18/20 Keny Saldaña, INSIDE PHONE SALES, RUBBER MOLD MAKER #[address] [address] Nurse Practitioner Advanced Practice Nurse 09/08/21 Cristian Dewitt MD #[address] [address] Consulting Physician Cardiovascular Disease - Cardiology 10/06/21 02/07/24 Yamel Kurtz III, MD #2 [place] [address] Consulting Physician Urology 09/11/22 Raghu Green MD #2 [place] [address] Consulting Physician Pulmonary Disease 01/04/22 Warren Osborn MD #[address] [address] Consulting Physician Colon and Rectal Surgery 05/21/23 Ale Spain, [place] Nurse Sealing Machine Operator 09/05/23 Chetan Do MD #[address] [phone] Consulting Physician Endocrinology 01/23/24 documented as of this encounter
--- OUTSIDE RECORDS SUMMARY | 2024-03-24 13:01 | XMS_ITS | Encounter Summary ---
Author Organization [facility] Address [address] [place] [address] Phone Care Team Providers Care Bridge Opener Name Role Phone Ariel Christiansen MD Unavailable [phone] Parmjit Vogel MD Unavailable [phone] Nicolas Greer MD Primary Care Provider [phone] Keny Saldaña APRN, RESEARCH ENGINEER Unavailable Cristian Dewitt MD Unavailable Ale Black RN Unavailable Unavailable Ale Spain RN Unavailable Unavailable Jerardo MCCANN MD, Courtney Unavailable [phone] Raghu Green MD Unavailable Warren Osborn MD Unavailable Ale Spain RN Unavailable Unavailable Chetan Do MD Unavailable Reason for Visit * Reason Comments Medication Refill Encounter Details Date Type Department Care Team (Late st Contact Info) Description 03/27/2022 Refill [facility] - [facility] - [place] #2 [place] [address] Nicolas Greer MD #[address] [address] Medication Refill Social History Tobacco Use Types [...] Job Start Date Job End Date Retired [employer] Not on file Not on file Not on file COVID-19 Exposure Response Date Recorded In the last 10 days, have yo u been in contact with someone who was confirmed or suspected to have Coronavirus/COVID-19? No / Unsure 03/22/2022 2:20 PM GROOVER OPERATOR documented as of this encounter Miscellaneous Notes * Telephone Encounter - Karoline Martinez RN - 03/27/2022 1:19 PM GROOVER OPERATOR Per nursing clinical judgement, provider to review and approve the medication(s) order(s) if appropriate. Requested Prescriptions Pending Prescriptions Disp Refills albuterol 108 (90 Base) MCG/ACT Aerosol Solution [Pharmacy Med Name: ALBUTEROL HFA 90 MCG INHALER (AK] 8.5 g Sig: INHALE TWO PUFFS BY MOUTH EVERY FOUR HOURS NEEDED FOR WHEEZING Short Acting Inhaled Beta-Agonists Protocol Passed - 03/27/2022 1:13 PM Passed - Visit with relevant provider [...] 09/08/21 Office Visit Keny Saldaña APRN, MARY [facility] 08/03/21 Telemedicine Nicolas Greer MD [facility] 07/21/21 Telemedicine Nicolas Greer MD [facility] 04/28/21 Telemedicine Nicolas Greer MD [facility] Showing recent visits within past 365 days and meeting all other requirements Future Appointments Date Type Provider Dept 06/21/22 Appointment Nicolas Greer MD [facility] Showing future appointments within next 90 days and meeting all other requirements Breztri [employer] 160-9-4.8 MCG/ACT Aerosol [Pharmacy Med Name: BREZTRI AEROSPHERE INHALER] 10.7 g2 Sig: INHALE TWO PUFFS BY MOUTH IN THE MORNING AND AT BEDTIME Inhaled Combinations Protocol Passed - 03/27/2022 1:13 PM Passed - Visit with relevant provider in past 12 months or upcoming 90 days Recent Visits Date Type Provider Dept 03/22/22 Office Visit Nicolas Greer MD [facility] 03/07/22 Telemedicine Nicolas Greer MD [facility] 02/13/22 Telemedicine Nicolas Greer MD [facility] 01/11/22 Telemedicine Nicolas Greer MD [facility] 01/09/22 Telemedicine Keny Saldaña APRN, RESEARCH ENGINEER [facility] 12/19/21 Office Visit Nicolas Greer MD [facility] 09/08/21 Office Visit Keny Saldaña APRN, MARY [facility] 08/03/21 Telemedicine Nicolas Greer MD [facility] 07/21/21 Telemedicine Nicolas Greer MD [facility] 03/24/22 Telemedicine Nicolas Greer MD [facility] Showing recent visits within past 365 days and meeting all other requirements Future Appointments Date Type Provider Dept 06/21/22 Appointment Nicolas Greer MD [facility] Showing future appointments within next 90 days and meeting all other requirements Passed - Active short-acting beta agonist prescription VER OPERATOR documented in this encounter Plan of Treatment Upcoming Encounters Date Type Department Care Team (Late st Contact Info) Description 04/24/2024 2:00 PM CDT Office Visit [facility] - Endocrinology - [place] #[address] [facility] [place] [address] Chetan Do MD #2 [facility] [address] [place] [address] 08/14/2024 1:00 PM CDT Office Visit [facility] - Pulmonology & Sleep Medicine - [place] #[address] [facility] [place] [address] Raghu Green MD #2 [place] [address] 09/17/2024 1:00 PM CDT Office Visit [facility] - Family Medicine - [place] #2 [place] [address] Nicolas Greer MD #2 [facility] [address] [place] [address] documented as of this encounter Visit Diagnoses Not on filedocumented in this encounter Additional Health Concerns Assessment Noted Time PHQ-9 Depression Total Score: 0 02/12/19 10:45 AM GROOVER OPERATOR documented as of this encounter Care Teams Bridge Opener Relationship Specialty Start Date End Date Nicolas Greer MD #2 [facility] [address] [place] [address] PCP - General Family Medicine 09/08/21 Ariel Christiansen MD Consulting Physician Cardiovascular Disease - Cardiology 07/19/16 [place] [address] [address] Ip/Mosaic Technician Pulmonary Disease 06/18/20 Keny Saldaña, CERAMIC COATER MACHINE, RESEARCH ENGINEER #[address] [address] Nurse Practitioner Advanced Practice Nurse 09/08/21 Cristian Dewitt MD #[address] [address] Consulting Physician Cardiovascular Disease - Cardiology 10/06/21 02/07/24 Ale Spain, RN [place] Bread Supervisor 03/15/22 02/12/23 Ale Spain, RN [place] Nurse Bread Supervisor 03/15/22 02/13/23 Yamel Kurtz III, MD #2 [place] [address] Consulting Physician Urology 09/11/22 Raghu Green MD #2 [place] [address] Consulting Physician Pulmonary Disease 01/04/22 Warren Osborn MD #[address] [address] Consulting Physician Colon and Rectal Surgery 05/21/23 Ale Spain, RN [place] Nurse Bread Supervisor 09/05/23 Chetan Do MD #[address] [address] Consulting Physician Endocrinology 01/23/24 documented as of this encounter
--- OUTSIDE RECORDS SUMMARY | 2024-03-24 13:01 | XMS_ITS ---
Author Organization [facility] Address [address] [address] Phone Care Team Providers Care [employer] Team Member Name Role Phone Ariel Christiansen MD Unavailable [phone] Parmjit Vogel MD Unavailable [phone] Nicolas Greer MD Primary Care Provider [phone] Keny Saldaña APRN, SOFTWARE TEAM LEADER Unavailable Jerardo MCCANN MD, Courtney Unavailable [phone] Raghu Green MD Unavailable Warren Osborn MD Unavailable Ale Spain RN Unavailable Unavailable Chetan Do MD Unavailable Ambulatory Complex Care Management Status:Enrolled (Active) Start date:09/05/2023 Enrollment date:09/05/2023 Enrollment reason:Identified as high-risk Current support & services provided:RN Care Managed Related social drivers of health:Social Connections, Alcohol Use, Tobacco Use, Financial Resource Strain, Stress, Physical Activity,Food Insecurity, Housing Stability, Utilities Overview Complex Care Management Program Case Team Name Relationship Phone Ale Spain RN Nurse Mounter(Responsible Staff) Continued Care and Services Coordination
--- OUTSIDE RECORDS SUMMARY | 2024-03-24 13:01 | XMS_ITS | Encounter Summary ---
Author Organization [facility] Address [address] [place] [address] Phone Care Team Providers Care Integrated Circuits Inspector Name Role Phone Ariel Christiansen MD Unavailable [phone] Parmjit Vogel MD Unavailable [phone] Nicolas Greer MD Primary Care Provider [phone] Keny Saldaña APRN, METAL NEUTRALIZER Unavailable Cristian Dewitt MD Unavailable Ale Black RN Unavailable Unavailable Ale Spain RN Unavailable Unavailable Jerardo MCCANN MD, Courtney Unavailable [phone] Raghu Green MD Unavailable Warren Osborn MD Unavailable Ale Spain RN Unavailable Unavailable Chetan Do MD Unavailable Reason for Visit * Reason Comments Medication Refill Encounter Details Date Type Department Care Team (Late st Contact Info) Description 09/20/2022 Refill [facility] #2 [place] [address] Nicolas Greer MD #[address] [address] Medication Refill Social History Tobacco Use Types [...] Job Start Date Job End Date Retired [employer] Not on file Not on file Not on file COVID-19 Exposure Response Date Recorded In the last 10 days, have yo u been in contact with someone who was confirmed or suspected to have Coronavirus/COVID-19? No / Unsure 09/21/2022 12:13 PM CDT documented as of this encounter Functional Status * Question Answer Date of Assessment Author Little interest or pleasure in doing things Not at all 09/21/2022 1:48 PM CDT Nicole Cedeno MA Feeling down, depressed, or hopeless Not at all 09/21/2022 1:48 PM CDT Zeynep Cedeno MA * Over the past 2 weeks, how often have you been bothered by any of the following problems? Question Answer Date of Assessment Author Patient Health Questionnaire-2 Score 0 09/21/2022 1:48 PM CDT Heaven Cedeno MA documented as of this encounter Miscellaneous Notes * Telephone Encounter - Nicolle Funk RN - 09/21/2022 9:44 AM CDT PRN medication requires review from provider Per nursing clinical judgement, provider to review and approve the medication(s) order(s) if appropriate. Requested Prescriptions Pending Prescriptions Disp Refills albuterol 108 (90 Base) MCG/ACT Aerosol Solution [Pharmacy Med Name: ALBUTEROL HFA 90 MCG INHALER (SD] 8.5 g 1 Sig: INHALE TWO PUFFS BY MOUTH EVERY FOUR HOURS NEEDED FOR WHEEZING Short Acting Inhaled Beta-Agonists Protocol Passed - 09/20/2022 1:50 PM Passed - Visit with relevant provider [...] requirements Today's Visits Date Type Provider Dept 09/21/22 Appointment Nicolas [...] Description 04/24/2024 2:00 PM CDT Office Visit [facility] - Endocrinology - [place] [address] [place] [address] Chetan Do MD #[address] [address] 08/14/2024 1:00 PM CDT [facility] & [facility] - [place] #2 [place] [address] Raghu Green MD #2 [place] [address] 09/17/2024 1:00 PM CDT Office Visit [facility] - [place] #2 [place] [address] Nicolas Greer MD #[address] [address] documented as of this encounter Visit Diagnoses Not on filedocumented in this encounter Additional Health Concerns Assessment Noted Time PHQ-9 Depression Total Score: 0 02/12/19 20 10:45 AM STRIP PRESSER documented as of this encounter Care Teams Integrated Circuits Inspector Relationship Specialty Start Date End Date Nicolas Greer MD #[address] [address] PCP - General Family Medicine 09/08/21 Ariel Christiansen MD Consulting Physician Cardiovascular Disease - Cardiology 07/19/16 [place] [id number] [address] Scuba Diver Pulmonary Disease 06/18/20 Keny Saldaña APRN, METAL NEUTRALIZER #[address] [address] Nurse Practitioner Advanced Practice Nurse 09/08/21 Cristian Dewitt MD #[address] [address] Consulting Physician Cardiovascular Disease - Cardiology 10/06/21 02/07/24 Ale Spain, RN [place] Mat Machine Operator 03/15/22 02/12/23 Ale Spain, RN [place] Nurse Mat Machine Operator 03/15/22 02/13/23 Yamel Kurtz III, MD #2 [place] [address] Consulting Physician Urology 09/11/22 Raghu Green MD #2 [place] [address] Consulting Physician Pulmonary Disease 01/04/22 Warren Osborn MD #[address] [address] Consulting Physician Colon and Rectal Surgery 05/21/23 Ale Spain, RN [place] Nurse Mat Machine Operator 09/05/23 Chetan Do MD #[address] [address] Consulting Physician Endocrinology 01/23/24 documented as of this encounter
--- OUTSIDE RECORDS SUMMARY | 2024-03-24 13:01 | XMS_ITS | Encounter Summary ---
Author Organization [facility] Address [address] [place] [address] Phone Care Team Providers Care Attending Anesthesiologist Name Role Phone Ariel Christiansen MD Unavailable [phone] Parmjit Vogel MD Unavailable [phone] Nicolas Greer MD Primary Care Provider [phone] Keny Saldaña APRN, COURTESY CLERK Unavailable Cristian Dewitt MD Unavailable Ale Black RN Unavailable Unavailable Ale Spain RN Unavailable Unavailable Jerardo MCCANN MD, Courtney Unavailable [phone] Raghu Green MD Unavailable Warren Osborn MD Unavailable Ale Spain RN Unavailable Unavailable Chetan Do MD Unavailable Reason for Visit * Reason Comments Medication Refill Encounter Details Date Type Department Care Team (Late st Contact Info) Description 04/21/2022 Refill [facility] [place] [facility] [place] [address] Nicolas Greer MD #[address] [address] Medication Refill Social History Tobacco Use Types [...] Job Start Date Job End Date Retired [employer] Not on file Not on file Not on file COVID-19 Exposure Response Date Recorded In the last 10 days, have yo u been in contact with someone who was confirmed or suspected to have Coronavirus/COVID-19? No / Unsure 04/06/2022 12:47 PM SHEARING SHED HAND documented as of this encounter Miscellaneous Notes * Telephone Encounter - Nicolle Funk RN - 05/01/2022 1:42 PM CDT Per note 02/01/22 - career education teacher (Dr Osborn) wants patient to take both the furosemide and the torsemide. Per nursing clinical judgement, provider to review and approve the medication(s) order(s) if appropriate. Requested Prescriptions Pending Prescriptions Disp Refills Aspirin Low Dose 81 MG Tablet Delayed Response [Pharmacy Med Name: ASPIRIN EC 81 MG TABLET] 90 Tablet 0 Sig: TAKE ONE TABLET BY MOUTH DAILY Platelet Inhibitors Protocol Passed - 05/01/2022 1:41 PM Passed - CBC on record in the past year WBC Date Value Ref Range Status 02/15/2022 6.92 4.00 - 12.00 10(3)/mcL Final WBC ESTERASE Date Value Ref Range Status 02/16/2022 Negative Negative Final RBC Date Value Ref Range Status 02/15/2022 3.85 3.80 - 5.30 10(6)/mcL Final HEMATOCRIT (HCT) Date Value Ref Range Status 02/15/2022 38.3 36.0 - 47.0 % Final HEMOGLOBIN (HGB) Date Value Ref Range Status 02/15/2022 11.9 (L) 12.0 - 15.8 g/dL Final MCV Date Value Ref Range Status 02/15/2022 99.5 (H) 82.0 - 96.0 fL Final MCH Date Value Ref Range Status 02/15/2022 30.9 26.0 - 34.0 pg Final MCHC Date Value Ref Range Status 02/15/2022 31.1 31.0 - 36.0 g/dL Final Passed - Visit with relevant provider in past year or upcoming 90 days Recent Visits Date Type Provider Dept 03/22/22 Office Visit Nicolas Greer MD [facility] 03/07/22 Telemedicine Nicolas Greer MD [facility] 02/13/22 Telemedicine Nicolas Greer MD [facility] 01/11/22 Telemedicine Nicolas Greer MD [facility] 01/09/22 Telemedicine Keny Saldaña APRN, MARY [facility] 12/19/21 Office Visit Nicolas Greer MD [facility] 09/08/21 Office Visit Keny Saldaña APRN, COURTESY CLERK [facility] 08/03/21 Telemedicine Nicolas Greer MD [facility] 07/21/21 Telemedicine Nciolas Greer MD [facility] Showing recent visits within past 365 days and meeting all other requirements Future Appointments Date Type Provider Dept 06/21/22 Appointment Nicolas Greer MD [facility] Showing future appointments within next 90 days and meeting all other requirements furosemide (LASIX) 20 MG Tablet [Pharmacy Med Name: FUROSEMIDE 20 MG TABLET] 90 Tablet 0 Sig: TAKE 1 TABLET BY MOUTH DAILY. Diuretics Protocol Passed - 05/01/2022 1:41 PM Passed - Serum potassium on record [...] Clinician-entered: BP Readings from Last 3 Encounters: 03/22/22 128/82 02/27/22 132/80 02/23/22 124/80 Patient-entered: No data recorded Passed - Visit with relevant provider in past 12 months or upcoming 90 days Recent Visits Date Type Provider Dept 03/22/22 Office Visit Nicolas Greer MD [facility] 03/07/22 Telemedicine Nicolas Greer MD [facility] 02/13/22 Telemedicine Nicolas Greer MD [facility] 01/11/22 Telemedicine Nicolas Greer MD [facility] 01/09/22 Telemedicine Keny Saldaña APRN, COURTESY CLERK [facility] 12/19/21 Office Visit Nicolas Greer MD [facility] 09/08/21 Office Visit Keny Saldaña APRN, COURTESY CLERK [facility] 08/03/21 Telemedicine Nicolas Greer MD [...] Range Status 04/06/2022 48 (L) >=60 Final vitamin b-12 (CYANOCOBALAMIN) 100 MCG Tablet [Pharmacy Med Name: VITAMIN B-12 100 MCG TABLET] 90 Tablet 0 Sig: TAKE TWO TABLETS BY MOUTH DAILY There is no refill protocol information for this order torsemide (DEMADEX) 20 MG Tablet [Pharmacy Med Name: TORSEMIDE 20 MG TABLET] 30 Tablet 0 Sig: TAKE ONE TABLET BY MOUTH DAILY Diuretics Protocol Passed - 05/01/2022 1:41 PM Passed - Serum potassium on record [...] Clinician-entered: BP Readings from Last 3 Encounters: 03/22/22 128/82 02/27/22 132/80 02/23/22 124/80 Patient-entered: No data recorded Passed - Visit with relevant provider in past 12 months or upcoming 90 days Recent Visits Date Type Provider Dept 03/22/22 Office Visit Nicolas Greer MD [facility] 03/07/22 Telemedicine Nicolas Greer MD [facility] 02/13/22 Telemedicine Nicolas Greer MD [facility] 01/11/22 Telemedicine Nicolas Greer MD [facility] 01/09/22 Telemedicine Keny Saldaña APRN, COURTESY CLERK [facility] 12/19/21 Office Visit Nicolas Greer, MD [facility] 09/08/21 Office Visit Keny Saldaña APRN, COURTESY CLERK [facility] 08/03/21 Telemedicine Nicolas Greer MD [facility] 07/21/21 Telemedicine Nicolas Greer MD [facility] [...] Range Status 04/06/2022 48 (L) >=60 Final Turmeric Curcumin 500 MG Capsule [Pharmacy Med Name: TUMERIC CURCUMIN 500 MG] 90 Capsule 0 Sig: TAKE ONE CAPSULE BY MOUTH DAILY There is no refill protocol information for this order * Telephone Encounter - Ale Spain RN - 04/24/2022 3:56 PM CDT Call received from daughter reporting that she had a missed call from the office. She states that she has been under the weather and it is best to contact Tomeka regarding this matter. Attempt made to contact Tomeka at and no answer. VM left for return call. Demographicsupdated to have Tomeka's number listed as first contact. * Telephone Encounter - Nicolle Funk RN - 04/24/2022 2:44 PM CDT LVM another voicemail message regarding this matter. Unable to process request without further information. * Telephone Encounter - Nicolle Funk RN - 04/21/2022 11:50 AM CDT LVM for pt to return call to office. Is patient taking both - Torsemide & Furosemide documented in this encounter Plan of Treatment Upcoming Encounters Date Type Department Care Team (Late st Contact Info) Description 04/24/2024 2:00 PM CDT Office Visit [facility] - Endocrinology - [place] #2 [place] [phone] Chetan Do MD #[address] [phone] 08/14/2024 1:00 PM CDT Office Visit [facility] - Pulmonology & Sleep Medicine - [place] #2 [place] [address] Raghu Green MD #2 [place] [address] 09/17/2024 1:00 PM CDT Office Visit [facility] #2 [place] [address] Nicolas Greer MD #[address] [address] documented as of this encounter Visit Diagnoses Diagnosis Edema, unspecified type documented in this encounter Additional Health Concerns Assessment Noted Time PHQ-9 Depression Total Score: 0 02/12/19 20 10:45 AM SHEARING SHED HAND documented as of this encounter Care Teams Attending Anesthesiologist Relationship Specialty Start Date End Date Nicolas Greer MD #[address] [address] PCP - General Family Medicine 09/08/21 Ariel Christiansen MD Consulting Physician Cardiovascular Disease - Cardiology 07/19/16 [place] [address] [address] Manager Law Pulmonary Disease 06/18/20 Keny Saldaña APRN, COURTESY CLERK #[address] [address] Nurse Practitioner Advanced Practice Nurse 09/08/21 Cristian Dewitt MD #[address] [address] Consulting Physician Cardiovascular Disease - Cardiology 10/06/21 02/07/24 Ale Spain, W[place] Register In Chancery 03/15/22 02/12/23 Ale Spain RN [place] Nurse Register In Chancery 03/15/22 02/13/23 Yamel Kurtz III, MD #2 [place] [address] Consulting Physician Urology 09/11/22 Raghu Green MD #2 [place] [address] Consulting Physician Pulmonary Disease 01/04/22 Warren Osborn MD #[address] [address] Consulting Physician Colon and Rectal Surgery 05/21/23 Ale Spain, RN [place] Nurse Register In [employer]cery 09/05/23 Chetan Do MD #[address] [phone] Consulting Physician Endocrinology 01/23/24 documented as of this encounter
--- OUTSIDE RECORDS SUMMARY | 2024-03-24 13:01 | XMS_ITS | Encounter Summary ---
Author Organization [facility] Address [address] [place] [address] Phone Care Team Providers Care Pill Maker Name Role Phone Nicolas Greer MD Primary Care Provider [phone] Ariel Christiansen MD Unavailable [phone] Parmjit Vogel MD Unavailable [phone] Nicolas Greer MD Primary Care Provider [phone] Keny Saldaña APRN, DIESEL TECHNICIAN Unavailable Cristian Dewitt MD Unavailable Ale Black RN Unavailable Unavailable Ale Spain RN Unavailable Unavailable Jerardo MCCANN MD, Courtney Unavailable [phone] Raghu Green MD Unavailable Warren Osborn MD Unavailable Ale Spain RN Unavailable Unavailable Chetan Do MD Unavailable Reason for Visit * Reason Comments Medication Refill Encounter Details Date Type Department Care Team (Late st Contact Info) Description 06/03/2021 Refill [facility] #2 [place] [address] Nicolas Greer MD #[address] [address] Medication Refill Social History Tobacco Use Types [...] Job Start Date Job End Date Retired [employer] Not on file Not on file Not on file documented as of this encounter Miscellaneous Notes * Telephone Encounter - Nicolle Funk RN - 06/03/2021 11:34 AM CDT Medication failed the protocol, provider to review and approve the medication order if appropriate. Requested Prescriptions Pending Prescriptions Disp Refills sertraline (ZOLOFT) 50 MG Tablet [Pharmacy Med Name: Sertraline HCl 50 MG Oral Tablet] 90 Tablet 0 Sig: Take 1 tablet by mouth once daily SSRI (6 Month Refill Only) Protocol Failed - 06/03/2021 9:58 AM Failed - Has an encounter in the past 6 months with a depression, anxiety, adjustment disorder, OCD, or PTSD visit diagnosis Passed - Visit with relevant provider in past 6 months or upcoming 90 days Recent Visits Date Type Provider Dept 04/28/21 Telemedicine Nicolas Greer MD [facility] 12/20/20 Office Visit Nicolas Greer MD [facility] Showing recent visits within past 182 days and meeting all other requirements Future Appointments Date Type Provider Dept 07/05/21 Appointment Nicolas Greer MD [facility] Showing future appointments within next 90 days and meeting all other requirements Passed - Patient has established therapy with SSRI for at least 6 months lovastatin (MEVACOR) 40 MG Tablet [Pharmacy Med Name: Lovastatin 40 MG Oral Tablet] 45 Tablet 0 Sig: Take 1/2 (one-half) tablet by mouth once daily Hmg CoA Reductase Inhibitors Protocol Failed - 06/03/2021 9:58 AM Failed - Lipid panel in past 12 months [...] Status 03/11/2020 131.7 (H) <130 mg/dL Final Passed - Visit with relevant provider in past 12 months or upcoming 90 days Recent Visits Date Type Provider Dept 04/28/21 Telemedicine Nioclas Greer MD [facility] 12/20/20 Office Visit Nicolas Greer MD [facility] 09/22/20 Office Visit Nicolas Greer MD [facility] 06/21/20 Office Visit Nicolas Greer MD [facility] 06/08/20 Office Visit Nicolas Greer MD [facility] Showing recent visits within past 365 days and meeting all other requirements Future Appointments Date Type Provider Dept 07/05/21 Appointment Nicolas Greer MD [facility] Showing future appointments within next 90 days and meeting all other requirements benzonatate (TESSALON) 100 MG Capsule [Pharmacy Med Name: Benzonatate 100 MG Oral Capsule] 30 Capsule 0 Sig: Take 1 capsule by mouth three times daily as needed for cough Not Delegated - Anti-Tussives Protocol Failed - 06/03/2021 9:58 AM Failed - This refill cannot be delegated Passed - Visit with relevant provider in past 12 months or upcoming 90 days Recent Visits Date Type Provider Dept 04/28/21 Telemedicine Nicolas Greer MD [facility] 12/20/20 Office Visit Nicolas Greer MD [facility] 09/22/20 Office Visit Nicolas Greer MD [facility] 06/21/20 Office Visit Nicolas Greer MD [facility] 06/08/20 Office Visit Nicolas Greer MD [facility] Showing recent visits within past 365 days and meeting all other requirements Future Appointments Date Type Provider Dept 07/05/21 Appointment Nicolas Greer MD [facility] Showing future appointments within next 90 days and meeting all other requirements documented in this encounter Plan of Treatment Upcoming Encounters Date Type Department Care Team (Late st Contact Info) Description 04/24/2024 2:00 PM CDT Office Visit [facility] - Endocrinology - [place] #2 [place] [address] Chetan Do MD #[address] [address] 08/14/2024 1:00 PM CDT Office Visit [facility] - Pulmonology & Sleep Medicine - [place] #2 [place] [address] Raghu Green MD #2 [place] [address] 09/17/2024 1:00 PM CDT Office Visit [facility] Medical [facility] - Family Medicine - [place] #2 [place] [address] Nicolas Greer MD #[address] [address] documented as of this encounter Visit Diagnoses Diagnosis Depression with anxiety Dysthymic disorder Pulmonary emphysema, unspecified emphysema type (HCC) documented in this encounter Additional Health Concerns Infection Onset Date Last Indicated Resolved Time COVID - 19 09/02/2021 09/02/2021 09/03/2021 2:05 PM CDT COVID - 19 12/24/2021 12/24/2021 12/26/2021 8:07 AM DRAW OPERATOR Respiratory Rule Out - RPA 12/24/2021 12/24/2021 1 02/24/2021 4:41 PM DRAW OPERATOR Influenza 12/24/2021 12/24/2021 12/31/2021 12:1 6 AM DRAW OPERATOR Assessment Noted Time PHQ-9 Depression Total Score: 0 02/12/19 10:45 AM DRAW OPERATOR documented as of this encounter Care Teams Pill Maker Relationship Specialty Start Date End Date Nicolas Greer MD #[address] [address] PCP - General Family Medicine 12/22/14 09/07/21 Nicolas Greer MD #[address] [address] PCP - General Family Medicine 09/08/21 Ariel Christiansen MD #[address] [address] Consulting Physician Cardiovascular Disease - Cardiology 07/19/16 [place] [address] [address] Molder Trimmer Pulmonary Disease 06/18/20 Keny Saldaña, WATCH DIAL MAKER, DIESEL TECHNICIAN #[address] [address] Nurse Practitioner Advanced Practice Nurse 09/08/21 Cristian Dewitt MD #2 [facility] [address] [place] [address] Consulting Physician Cardiovascular Disease - Cardiology 10/06/21 02/07/24 Ale Spain, RN [place] Event Coordinator Marketing And Sales 03/15/22 02/12/23 Ale Spain, RN [place] Nurse Event Coordinator Marketing And Sales 03/15/22 02/13/23 Yamel Kurtz III, MD #2 [place] [address] Consulting Physician Urology 09/11/22 Raghu Green MD #2 [place] [address] Consulting Physician Pulmonary Disease 01/04/22 Warren Osborn MD #[address] [address] Consulting Physician Colon and Rectal Surgery 05/21/23 Ale Spain, RN [place] Nurse Event Coordinator Marketing And Sales 09/05/23 Chetan Do MD #[address] [phone] Consulting Physician Endocrinology 01/23/24 documented as of this encounter
--- OUTSIDE RECORDS SUMMARY | 2024-03-24 13:01 | XMS_ITS | Encounter Summary ---
Author Organization [facility] Address [address] [place] [address] Phone Care Team Providers Care Psych Tech Name Role Phone Nicolas Greer MD Primary Care Provider [phone] Ariel Christiansen MD Unavailable [phone] Parmjit Vogel MD Unavailable [phone] Nicolas Greer MD Primary Care Provider [phone] Keny Saldaña APRN, RISK COMPLIANCE MANAGER Unavailable Cristian Dewitt MD Unavailable UnaAle Montanez RN Unavailable Unavailable Ale Spain RN Unavailable Unavailable Jerardo MCCANN MD, Courtney Unavailable [phone] Raghu Green MD Unavailable Warren Osborn MD Unavailable Ale Spain RN Unavailable Unavailable Chetan Do MD Unavailable Encounter Details Date Type Department Care Team (Late st Contact Info) Description 08/05/2021 Lab [facility] [address] [place] [address] Nicolas Greer MD #[address] [address] Idiopathic gout, unspecified site; Type 2 diabetes mellitus without complications (HCC); Vitamin D deficiency, unspecified; Essential (primary) hypertension; 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 No / Unsure 08/03/2021 11:31 AM CDT documented as of this encounter Plan of Treatment Upcoming Encounters Date Type Department Care Team (Late st Contact Info) Description 04/24/2024 2:00 PM CDT [facility] - [place] #2 [place] [address] Chetan Do MD #[address] [address] 08/14/2024 1:00 PM CDT [facility] - [place] #2 [place] [address] Raghu Green MD #2 [place] [address] 09/17/2024 1:00 PM CDT Office Visit [facility] Family [facility] [address] [place] [address] Nicolas Greer MD #[address] [address] documented as of this encounter Procedures Procedure Name Priority Date/Time Associated Diagnosis Comments VITAMIN D, 25 HYDROXY TOTAL Routine 08/05/2021 8:18 AM CDT Idiopathic gout, unspecified site Type 2 diabetes mellitus without complications (HCC) Vitamin D deficiency, unspecified Essential (primary) hypertension 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) HEMOGLOBIN A1C W/ ESTIMATED GLUCOSE Routine 08/05/2021 8:18 AM CDT Idiopathic gout, unspecified site Type 2 diabetes mellitus without complications (HCC) Vitamin D deficiency, unspecified Essential (primary) hypertension 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) CBC WITH AUTO DIFFERENTIAL Routine 08/05/2021 8:18 AM CDT Idiopathic gout, unspecified site Type 2 diabetes mellitus without complications (HCC) Vitamin D deficiency, unspecified Essential (primary) hypertension 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) VITAMIN B12 Routine 08/05/2021 8:18 AM CDT Idiopathic gout, unspecified site Type 2 diabetes mellitus without complications (HCC) Vitamin D deficiency, unspecified Essential (primary) hypertension 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) URIC ACID (BLOOD ASSAY) Routine 08/05/2021 8:18 AM CDT Idiopathic gout, unspecified site Type 2 diabetes mellitus without complications (HCC) Vitamin D deficiency, unspecified Essential (primary) hypertension 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) THYROID STIMULATING HORMONE (TSH) Routine 08/05/2021 8:18 AM CDT Idiopathic gout, unspecified site Type 2 diabetes mellitus without complications (HCC) Vitamin D deficiency, unspecified Essential (primary) hypertension 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) LIPID PANEL Routine 08/05/2021 8:18 AM CDT Idiopathic gout, unspecified site Type 2 diabetes mellitus without complications (HCC) Vitamin D deficiency, unspecified Essential (primary) hypertension 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) CMP (COMPREHENSIVE METABOLIC PANEL) Routine 08/05/2021 8:18 AM CDT Idiopathic gout, unspecified site Type 2 diabetes mellitus without complications (HCC) Vitamin D deficiency, unspecified Essential (primary) hypertension 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) COMPLETE BLOOD COUNT (CBC) WITH DIFF Routine 08/05/2021 8:18 AM CDT Idiopathic gout, unspecified site Type 2 diabetes mellitus without complications (HCC) Vitamin D deficiency, unspecified Essential (primary) hypertension 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) documented in this encounter Results * (ABNORMAL) CBC WITH AUTO DIFFERENTIAL (08/05/2021 8:18 AM CDT) WBC 6.70 4.00 - 12.00 10(3)/mcL 08/05/2021 9:37 AM CDT [facility] RBC 4.35 3.80 - 5.30 10(6)/mcL 08/05/2021 9:37 AM CDT [facility] HEMOGLOBIN (HGB) 13.2 12.0 - 15.8 g/dL 08/05/2021 9:37 AM CDT [facility] HEMATOCRIT (HCT) 44.4 36.0 - 47.0 % 08/05/2021 9:37 AM CDT [facility] MCV 102.1(H) 82.0 - 96.0 fL 08/05/2021 9:37 AM CDT [facility] MCH 30.3 26.0 - 34.0 pg 08/05/2021 9:37 AM CDT [facility] MCHC 29.7(L) 31.0 - 36.0 g/dL 08/05/2021 9:37 AM CDT [facility] PLATELET COUNT 279 140 - 440 10(3)/[facility] 08/05/2021 9:37 AM CDT [facility] RDW 13.2 11.8 - 15.5 % 08/05/2021 9:37 AM CDT [facility] MPV 10.1 9.7 - 12.4 fL 08/05/2021 9:37 AM CDT [facility] NEUTROPHILS 71.3 47.0 - 73.0 % 08/05/2021 9:37 AM CDT [facility] LYMPHOCYTES 20.3 18.0 - 42.0 % 08/05/2021 9:37 AM CDT [facility] MONOCYTES 6.1 4.0 - 12.0 % 08/05/2021 9:37 AM CDT [facility] EOSINOPHILS 1.6 0.0 - 5.0 % 08/05/2021 9:37 AM CDT [facility] BASOPHILS 0.7 0.0 - 1.0 % 08/05/2021 9:37 AM CDT [facility] ABSOLUTE NEUTROPHILS 4.77 1.60 - 7.70 10(3)/[facility] 08/05/2021 9:37 AM CDT [facility] ABSOLUTE LYMPHOCYTES 1.36 1.30 - 3.20 10(3)/[facility] 08/05/2021 9:37 AM CDT [facility] ABSOLUTE MONOCYTES 0.41 0.20 - 1.00 10(3)/[facility] 08/05/2021 9:37 AM CDT [facility] ABSOLUTE EOSINOPHIL 0.11 0.00 - 0.40 10(3)/[facility] 08/05/2021 9:37 AM CDT [facility] ABSOLUTE BASOPHILS 0.05 0.00 - 0.10 10(3)/[facility] 08/05/2021 9:37 AM CDT [facility] NRBC PER 100 WBC 0 07/01/20 22 9:37 AM CDT [facility] RESULTS ARE CONSISTENT WITH PERIPHERAL SMEAR REVIEW Yes 08/05/2021 9:37 AM CDT [facility] Blood No Phlebotomy Charged / Unknown 08/05/2021 8:18 AM CDT 08/05/2021 9:18 AM CDT Nicolas Greer MD HEMATOLOGY ORDERABLES Final Result Performing Organization Address City/[facility]/ZIP Co de Phone Number [facility] #1 [place] [address] * (ABNORMAL) VITAMIN B12 (08/05/2021 8:18 AM CDT) VITAMIN B12 239(L) 243 - 894 pg/mL 08/05/2021 10:01 AM CDT [facility] Blood No Phlebotomy Charged / Unknown 08/05/2021 8:18 AM CDT 08/05/2021 9:18 AM CDT Nicolas Greer MD CHEMISTRY ORDERABLES Final Result Performing Organization Address City/[facility]/ZIP Co de Phone Number [facility] #1 [place] [address] * VITAMIN D, 25 HYDROXY TOTAL (08/05/2021 8:18 AM CDT) VITAMIN D, 25 HYDROX 38 >=30 ng/mL 08/05/2021 10:00 AM CDT [facility] Blood No Phlebotomy Charged / Unknown 08/05/2021 8:18 AM CDT 08/05/2021 9:18 AM CDT Narrative [facility] - 08/05/2021 10:00 AM CDT Published reference ranges for Vitamin D vary depending on time and place and method of testing, and on patient's age, sex, ethnicity and levels of other measured analytes such as parathormone, calcium and phosphorus. The result should be evaluated in conjunction with clinical findings and suspicions. [place] [employer] and [employer] Clinical Practice Guidelines: Status Vitamin D levels (ng/mL) Deficient <=20 At risk of inadequacy 21-29 Sufficient 30-100 Centers of Disease Control and Prevention Guidelines: Status Vitamin D levels (ng/mL) Deficient <13 At risk of inadequacy 13-19 Sufficient 20-50 Possibly harmful >50 References: [place] [employer], 2010 Dietary reference intakes for calcium and vitamin D. Sheets [place]: The National Academies Press. Deni M, Wilfredo N, Belkis العراقي, et al., Evaluation, treatment, and prevention of Vitamin D deficiency: an Endocrinology Clinical Practice Guideline. JCEM 2011 96: 7 4209-5049. Roxana A, Wilton C, Juan D, et al., Vitamin D Status: [place], 6791-9247, [facility] data brief, no. 59, MD Mel: National Center for Health Statistics. 2011. Nicolas Greer MD CHEMISTRY ORDERABLES Final Result Performing Organization Address City/[facility]/ZIP Co de Phone Number [facility] #[address] [place] [address] * URIC ACID (BLOOD ASSAY) (08/05/2021 8:18 AM CDT) URIC ACID 4.1 2.4 - 5.7 mg/dL 08/05/2021 9:51 AM CDT [facility] Blood No Phlebotomy Charged / Unknown 08/05/2021 8:18 AM CDT 08/05/2021 9:18 AM CDT Nicolas Greer MD CHEMISTRY ORDERABLES Final Result Performing Organization Address City/[facility]/ZIP Co de Phone Number [facility] #1 [place] [address] * (ABNORMAL) HEMOGLOBIN A1C W/ ESTIMATED GLUCOSE (08/05/2021 8:18 AM CDT) HGB-A1C 6.1(H) 4.0 - 6.0 % 08/05/2021 9:43 AM CDT [facility] Est Average Glucose 128.4 mg/dL 08/05/2021 9:43 AM CDT [facility] Blood No Phlebotomy Charged / Unknown 08/05/2021 8:18 AM CDT 08/05/2021 9:18 AM CDT Narrative [facility] - 08/05/2021 9:43 AM CDT HEMOGLOBIN A1C: DIABETIC PATIENTS: WELL-CONTROLLED: 6.2 - 7.0 INTERMEDIATE WELL-CONTROLLED: 7.0 - 9.0 POORLY-CONTROLLED: >9.0 Nicolas Greer MD CHEMISTRY ORDERABLES Final Result Performing Organization Address City/[facility] Co de Phone Number [facility] [address]1 [place] [address] * THYROID STIMULATING HORMONE (TSH) (08/05/2021 8:18 AM CDT) TSH 3.980 0.270 - 4.200 mIU/L 08/05/2021 9:51 AM CDT [facility] Blood No Phlebotomy Charged / Unknown 08/05/2021 8:18 AM CDT 08/05/2021 9:18 AM CDT Nicolas Greer MD CHEMISTRY ORDERABLES Final Result [facility] [address] [place] [address] * (ABNORMAL) LIPID PANEL (08/05/2021 8:18 AM CDT) CHOLESTEROL 183 <=200 mg/dL 08/05/2021 9:51 AM CDT [facility] TRIGLYCERIDES 152(H) <150 mg/dL 08/05/2021 9:51 AM CDT [facility] HDL CHOLESTEROL 49.9 >40 mg/dL 9:51 AM CDT [facility] LDL 103 5 - 130 mg/dL 08/05/2021 9:51 AM CDT [facility] VLDL 30 5 - 55 mg/dL 08/05/2021 9:51 AM CDT [facility] CHOL/HDL RATIO 3.7 0.0 - 4.4 08/05/2021 9:51 AM CDT [facility] NON-HDL CHOLESTEROL 133.1(H) <130 mg/dL 08/05/2021 9:51 AM CDT [facility] Blood No Phlebotomy Charged / Unknown 08/05/2021 8:18 AM CDT 08/05/2021 9:18 AM CDT Nicolas Greer MD CHEMISTRY ORDERABLES Final Result [facility] #[address] [place] [address] * (ABNORMAL) CMP (COMPREHENSIVE METABOLIC PANEL) (08/05/2021 8:18 AM CDT) SODIUM 141 136 - 144 mmol/L 08/05/2021 9:51 AM CDT [facility] POTASSIUM 4.5 3.5 - 5.1 mmol/L 08/05/2021 9:51 AM CDT [facility] CHLORIDE 102 100 - 110 mmol/L 08/05/2021 9:51 AM CDT [facility] CO2, VENOUS 34(H) 22 - 32 mmol/L 08/05/2021 9:51 AM CDT [facility] ANION GAP 9.5 8.0 - 20.0 mmol/L 08/05/2021 9:51 AM CDT [facility] GLUCOSE 112(H) 70 - 99 mg/dL 08/05/2021 9:51 AM CDT [facility] BUN 18 8 - 23 mg/dL 08/05/2021 9:51 AM CDT [facility] CREATININE, BLOOD 0.64 0.60 - 1.10 mg/dL 08/05/2021 9:51 AM CDT [facility] BUN/CREATININE RATIO 28(H) 12 - 20 ratio 08/05/2021 9:51 AM CDT [facility] TOTAL PROTEIN 6.8 6.0 - 8.3 g/dL 08/05/2021 9:51 AM CDT [facility] ALBUMIN 4.1 3.5 - 5.2 g/dL 08/05/2021 9:51 AM CDT [facility] Comment: The colormetric methods used for the determination of Albumin may lead to falsely elevated test results in patients suffering from renal failure or insufficiency due to interference with other proteins. A/G RATIO 1.5 1.0 - 2.0 08/05/2021 9:51 AM CDT [facility] CALCIUM 10.7(H) 8.9 - 10.3 mg/dL 08/05/2021 9:51 AM CDT [facility] T BILI 0.4 <=1.2 mg/dL 08/05/2021 9:51 AM CDT [facility] SGOT (AST) 13 <=32 U/L 08/05/2021 9:51 AM CDT [facility] SGPT (ALT) 8 <=41 U/L 08/05/2021 9:51 AM CDT [facility] ALKALINE PHOSPHATASE 86 35 - 105 U/L 08/05/2021 9:51 AM CDT [facility] GFR, EST. NONAFRICAN >60 >=60 08/05/2021 9:51 AM CDT [facility] GFR, EST. >60 >=60 022 9:51 AM T [facility] Comment: Creatinine Clearance is the preferred criteria for selecting drug dose adjustments in renally impaired patients. The GFR is provided as additional pertinent clinical information. GFR is reported in mL/min/1.73 sq m. 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 neoplasm of large intestine and rectum documented in this encounter Additional Health Concerns Infection Onset Date Last Indicated Resolved Time COVID - 19 09/02/2021 09/02/2021 09/03/2021 2:05 PM CDT COVID - 19 12/24/2021 12/24/2021 12/26/2021 8:07 AM INSIDE METER TESTER Respiratory Rule Out - RPA 12/24/2021 12/24/2021 1 02/24/2021 4:41 PM INSIDE METER TESTER Influenza 12/24/2021 12/24/2021 12/31/2021 12:1 6 AM INSIDE METER TESTER Assessment Noted Time PHQ-9 Depression Total Score: 0 02/12/19 10:45 AM INSIDE METER TESTER documented as of this encounter Care Teams Psych Tech Relationship Specialty Start Date End Date Nicolas Greer MD #[address] [address] PCP - General Family Medicine 12/22/14 09/07/21 Nicolas Greer MD #[address] [address] PCP - General Family Medicine 09/08/21 Ariel Christiansen MD #[address] [address] Consulting Physician Cardiovascular Disease - Cardiology 07/19/[address] [place] [address] [facility] [address] [place] [address] Wound Specialist Pulmonary Disease 06/18/20 Keny Saldaña, WREATH MACHINE TENDER, RISK COMPLIANCE MANAGER #[address] [address] Nurse Practitioner Advanced Practice Nurse 09/08/21 Cristian Dewitt MD #[address] [address] Consulting Physician Cardiovascular Disease - Cardiology 10/06/21 02/07/24 Ale Spain, RN [place] Skid Man 03/15/22 02/12/23 Ale Spain, RN [place] Nurse Skid Man 03/15/22 02/13/23 Yamel Kurtz III, MD #2 [place] [address] Consulting Physician Urology 09/11/22 Raghu Green MD #2 [place] [address] Consulting Physician Pulmonary Disease 01/04/22 Warren Osborn MD #[address] [address] Consulting Physician Colon and Rectal Surgery 05/21/23 Ale Spain, RN [place] Nurse Skid Man 09/05/23 Chetan Do MD #[address] [phone] Consulting Physician Endocrinology 01/23/24 documented as of this encounter
--- OUTSIDE RECORDS SUMMARY | 2024-03-24 13:01 | XMS_ITS | Encounter Summary ---
Author Organization [facility] Address [address] [place] [address] Phone Care Team Providers Care Corporate Job Titles Name Role Phone Ariel Christiansen MD Unavailable [phone] Parmjit Vogel MD Unavailable [phone] Nicolas Greer MD Primary Care Provider [phone] Keny Saldaña APRN, MARY Unavailable Cristian Dewitt MD Unavailable Kate Kurtz III, MD, Courtney Unavailable [phone] Raghu Green MD Unavailable Warren Osborn MD Unavailable Ale Spain RN Unavailable Unavailable Chetan Do MD Unavailable Reason for Visit * Reason Comments Medication Refill Encounter Details Date Type Department Care Team (Late st Contact Info) Description 02/28/2023 Refill [facility] #2 [place] [address] Nicolas Greer MD #[address] [address] Medication Refill Social History Tobacco Use Types [...] Industry Job Start Date Job End Date [employer] Not on file Not on file Not on file documented as of this encounter Plan of Treatment Upcoming Encounters Date Type Department Care Team (Late st Contact Info) Description 04/24/2024 2:00 PM CDT Office Visit [facility] - Endocrinology [facility] #2 [place] [address] Chetan Do MD #[address] [address] 08/14/2024 1:00 PM CDT Office Visit [facility] - Pulmonology & Sleep Medicine [facility] #2 [place] [address] Raghu Green MD #2 [place] [address] 09/17/2024 1:00 PM CDT Office Visit [facility] - Family Medicine [facility] #2 [place] [address] Nicolas Greer MD #[address] [address] documented as of this encounter Visit Diagnoses Not on filedocumented in this encounter Additional Health Concerns Assessment Noted Time PHQ-9 Depression Total Score: 0 09/22/19 23 1:48 PM CDT documented as of this encounter Care Teams Corporate Job Titles Relationship Specialty Start Date End Date Nicolas Greer MD #[address] [address] PCP - General Family Medicine 09/08/21 Ariel Christiansen MD Consulting Physician Cardiovascular Disease - Cardiology 07/19/16 [place] [id number] [address] Construction Flagger Pulmonary Disease 06/18/20 Keny Saldaña APRN, JIG BORING MACHINE SET UP OPERATOR #[address] [address] Nurse Practitioner Advanced Practice Nurse 09/08/21 Cristian Dewitt MD #[address] [address] Consulting Physician Cardiovascular Disease - Cardiology 10/06/21 02/07/24 Yamel Kurtz III, MD #2 [place] [address] Consulting Physician Urology 09/11/22 Raghu Green MD #2 [place] [address] Consulting Physician Pulmonary Disease 01/04/22 Warren Osborn MD #[address] [address] Consulting Physician Colon and Rectal Surgery 05/21/23 Ale Spain, [place] Nurse Reporting Developer 09/05/23 Chetan Do MD #[address] [address] Consulting Physician Endocrinology 01/23/24 documented as of this encounter
--- OUTSIDE RECORDS SUMMARY | 2024-03-24 13:01 | XMS_ITS | Encounter Summary ---
Author Organization [facility] Address [address] [place] [address] Phone Care Team Providers Care Vermin Exterminator Name Role Phone Nicolas Greer MD Primary Care Provider [phone] Ariel Christiansen MD Unavailable [phone] Parmjit Vogel MD Unavailable [phone] Nicolas Greer MD Primary Care Provider [phone] Keny Saldaña APRN, OILFIELD PLANT AND FIELD OPERATOR Unavailable Cristian Dewitt MD Unavailable Ale Black RN Unavailable Unavailable Ale Spain RN Unavailable Unavailable Jerardo MCCANN MD, Courtney Unavailable [phone] Raghu Green MD Unavailable Warren Osborn MD Unavailable Ale Spain RN Unavailable Unavailable Chetan Do MD Unavailable Reason for Visit * Reason Comments Medication Refill Encounter Details Date Type Department Care Team (Late st Contact Info) Description 04/01/2021 [facility]ill [facility] #2 [place] [address] Nicolas Greer MD #[address] [address] Medication Refill Social History Tobacco Use Types [...] Job Start Date Job End Date Retired [employer] Not on file Not on file Not on file documented as of this encounter Miscellaneous Notes * Telephone Encounter - Willow Posey RN - 04/01/2021 10:48 AM CST Medication failed the protocol, provider to review and approve the medication order if appropriate. Requested Prescriptions Pending Prescriptions Disp Refills benzonatate (TESSALON) 100 MG Capsule [Pharmacy Med Name: Benzonatate 100 MG Oral Capsule] 30 Capsule 0 Sig: Take 1 capsule by mouth three times daily as needed for cough Not Delegated - Anti-Tussives Protocol Failed - 04/01/2021 10:46 AM Failed - This refill cannot be [...] requirements Future Appointments Date Type Provider Dept 04/12/21 Appointment Nicolas Greer MD [facility] Showing future appointments within next 90 days and meeting all other requirements ERATURE CONTROL INSPECTOR documented in this encounter Plan of Treatment Upcoming Encounters Date Type Department Care Team (Late st Contact Info) Description 04/24/2024 2:00 PM CDT Office Visit [facility] - Endocrinology - [place] #2 [place] [address] Chetan Do MD #[address] [address] 08/14/2024 1:00 PM CDT Office Visit [facility] - Pulmonology & Sleep Medicine - [place] #2 [place] [address] Raghu Green MD #2 [place] [address] 09/17/2024 1:00 PM CDT Office Visit [facility] - Family Medicine - [place] #2 [place] [address] Nicolas Greer MD #2 [facility] [address] [place] [address] documented as of this encounter Visit Diagnoses Diagnosis Pulmonary emphysema, unspecified emphysema type (HCC) documented in this encounter Additional Health Concerns Infection Onset Date Last Indicated Resolved Time COVID - 19 09/02/2021 09/02/2021 09/03/2021 2:05 PM CDT COVID - 19 12/24/2021 12/24/2021 12/26/2021 8:07 AM TEMPERATURE CONTROL INSPECTOR Respiratory Rule Out - RPA 12/24/2021 12/24/2021 1 02/24/2021 4:41 PM TEMPERATURE CONTROL INSPECTOR Influenza 12/24/2021 12/24/2021 12/31/2021 12:1 6 AM TEMPERATURE CONTROL INSPECTOR Assessment Noted Time PHQ-9 Depression Total Score: 0 02/12/19 20 10:45 AM TEMPERATURE CONTROL INSPECTOR documented as of this encounter Care Teams Vermin Exterminator Relationship Specialty Start Date End Date Nicolas Greer MD #[address] [address] PCP - General Family Medicine 12/22/14 09/07/21 Nicolas Greer MD #[address] [address] PCP - General Family Medicine 09/08/21 Ariel Christiansen MD #[address] [address] Consulting Physician Cardiovascular Disease - Cardiology 07/19/16 [place] [id number] [address] Unit Assistant Pulmonary Disease 06/18/20 Keny Saldaña APRN, OILFIELD PLANT AND FIELD OPERATOR #[address] [address] Nurse Practitioner Advanced Practice Nurse 09/08/21 Cristian Dewitt MD #[address] [address] Consulting Physician Cardiovascular Disease - Cardiology 10/06/21 02/07/24 Ale Spain, RN [place] Shank Paperer 03/15/22 02/12/23 Ale Spain, RN [place] Nurse Shank Paperer 03/15/22 02/13/23 Yamel Kurtz III, MD #2 [place] [address] Consulting Physician Urology 09/11/22 Raghu Green MD #2 [place] [address] Consulting Physician Pulmonary Disease 01/04/22 Warren Osborn MD #[address] [id number] Consulting Physician Colon and Rectal Surgery 05/21/23 Ale Spain, [place] Nurse Shank Paperer 09/05/23 Chetan Do MD #[address] [phone] Consulting Physician Endocrinology 01/23/24 documented as of this encounter
--- OUTSIDE RECORDS SUMMARY | 2024-03-24 13:01 | XMS_ITS | Encounter Summary ---
Author Organization [facility] Address [address] [place] [address] Phone Care Team Providers Care Sprinkling System Installer Name Role Phone Ariel Christiansen MD Unavailable [phone] Parmjit Vogel MD Unavailable [phone] Nicolas Greer MD Primary Care Provider [phone] Keny Saldaña APRN, ELECTRIC MOTOR CONTROLS ASSEMBLER Unavailable Cristian Dewitt MD Unavailable Ale Black RN Unavailable Unavailable Ale Spain RN Unavailable Unavailable Jerardo MCCANN MD, Courtney Unavailable [phone] Raghu Green MD Unavailable Warren Osborn MD Unavailable Ale Spain RN Unavailable Unavailable Chetan Do MD Unavailable Reason for Visit * Reason Comments Medication Refill Encounter Details Date Type Department Care Team (Late st Contact Info) Description 06/05/2022 Refill [facility] #2 [place] [address] Nicolas Greer MD #[address] [address] Medication Refill Social History Tobacco Use Types [...] Industry Job Start Date Job End Date [employer] Not on file Not on file Not on file documented as of this encounter Miscellaneous Notes * Telephone Encounter - Nicolle Funk RN - 06/05/2022 10:04 AM CDT Medication failed the protocol, provider to review and approve the medication order if appropriate. Requested Prescriptions Pending Prescriptions Disp Refills vitamin b-12 (CYANOCOBALAMIN) 100 MCG Tablet [Pharmacy Med Name: VITAMIN B-12 100 MCG TABLET] 90 Tablet 0 Sig: TAKE TWO TABLETS BY MOUTH DAILY #0200 Not Delegated - Off Protocol Failed - 06/05/2022 10:03 AM Failed - This refill cannot be delegated Passed - Visit with relevant provider in past 12 months or upcoming 90 days Recent Visits Date Type Provider Dept 03/22/22 Office Visit Nicolas Greer MD [facility] 03/07/22 Telemedicine Nicolas Greer MD [facility] 02/13/22 Telemedicine Nicolas Greer MD [facility] 01/11/22 Telemedicine Nicolas Greer MD [facility] 01/09/22 Telemedicine Keny Saldaña APRN, [facility] 12/19/21 Office Visit Nicolas Greer MD [facility] 09/08/21 Office Visit Keny Saldaña APRN, ELECTRIC MOTOR CONTROLS ASSEMBLER Greg[facility] Betancourt 08/03/21 Telemedicine [facility] [...] MOUTH DAILY #0100 Diuretics Protocol Passed - 06/05/2022 10:03 AM Passed - Serum potassium on record [...] [facility] 01/09/22 Telemedicine Keny Saldaña APRN, ELECTRIC MOTOR CONTROLS ASSEMBLER Osrah[facility] Betancourt 12/19/21 Office Visit Nicolas Greer MD [facility] 09/08/21 Office Visit Keny Saldaña APRN, ELECTRIC MOTOR CONTROLS ASSEMBLER Gregrahul Betancourt 08/03/21 Telemedicine Nicolas Greer MD [facility] 06/16/22 Telemedicine Nicolas Greer MD [facility] Showing [...] Description 04/24/2024 2:00 PM CDT Office Visit [facility] - Endocrinology - [place] [address]2 [place] [address] Chetan Do MD #2 [facility] [address] [place] [address] 08/14/2024 1:00 PM CDT Office Visit [facility] - Pulmonology & Sleep Medicine - [place] #2 [place] [address] Raghu Green MD #2 [place] [address] 09/17/2024 1:00 PM CDT Office Visit [facility] - Family Medicine - [place] #2 [place] [address] Nicolas Greer MD #2 [facility] [address] [place] [address] documented as of this encounter Visit Diagnoses Diagnosis Edema, unspecified type documented in this encounter Additional Health Concerns Assessment Noted Time PHQ-9 Depression Total Score: 0 02/12/19 20 10:45 AM SENIOR COST ESTIMATOR documented as of this encounter Care Teams Sprinkling System Installer Relationship Specialty Start Date End Date Nicolas Greer MD #2 [facility] [address] [place] [address] PCP - General Family Medicine 09/08/21 Ariel Christiansen MD Consulting Physician Cardiovascular Disease - Cardiology 07/19/16 [place] [address] [facility] [address] [place] [address] Marketing Director Assisted Living Pulmonary Disease 06/18/20 Keny Saldaña APRN, ELECTRIC MOTOR CONTROLS ASSEMBLER #[address] [address] Nurse Practitioner Advanced Practice Nurse 09/08/21 Cristian Dewitt MD #[address] [address] Consulting Physician Cardiovascular Disease - Cardiology 10/06/21 02/07/24 Ale Spain, RN [place] Sod Farmer 03/15/22 02/12/23 Ale Spain, RN [place] Nurse Sod Farmer 03/15/22 02/13/23 Yamel Kurtz III, MD #2 [place] [address] Consulting Physician Urology 09/11/22 Raghu Green MD #2 [place] [id number] Consulting Physician Pulmonary Disease 01/04/22 Warren Osborn MD #2 [facility] [address] [place] [address] Consulting Physician Colon and Rectal Surgery 05/21/23 Ale Spain, RN [place] Nurse Sod Farmer 09/05/23 Chetan Do MD #[address] [address] Consulting Physician Endocrinology 01/23/24 documented as of this encounter
--- OUTSIDE RECORDS SUMMARY | 2024-03-24 13:01 | XMS_ITS | Encounter Summary ---
Author Organization [facility] Address [address] [place] [address] Phone Care Team Providers Care Service Consultant Name Role Phone Ariel Christiansen MD Unavailable [phone] Parmjit Vogel MD Unavailable [phone] Nicolas Greer MD Primary Care Provider [phone] Keny Saldaña APRN, FIELD MARKETING COORDINATOR Unavailable Cristian Dewitt MD Unavailable Unaruslani Ale Richard RN Unavailable Unavailable Ale Spain RN Unavailable Unavailable Jerardo MCCANN MD, Courtney Unavailable [phone] Raghu Green MD Unavailable Warren Osborn MD Unavailable Ale Spain RN Unavailable Unavailable Chetan Do MD Unavailable Encounter Details Date Type Department Care Team (Late st Contact Info) Description 01/13/2022 Lab Requisition [facility] [address] [place] [id number] Nicolas Greer MD #[address] [address] Hypercalcemia Social History Tobacco Use Types Packs/Day [...] Industry Job Start Date Job End Date [employer] Not on file Not on file Not on file COVID-19 Exposure Response Date Recorded In the last 10 days, have yo u been in contact with someone who was confirmed or suspected to have Coronavirus/COVID-19? No / Unsure 01/09/2022 9:59 AM SEMICONDUCTOR DEVELOPMENT TECHNICIAN documented as of this encounter Plan of Treatment Upcoming Encounters Date Type Department Care Team (Late st Contact Info) Description 04/24/2024 2:00 PM CDT Office Visit [facility] - Endocrinology - [place] #[address] [place] [address] Chetan Do MD #[address] [phone] 08/14/2024 1:00 PM CDT Office Visit [facility] - Pulmonology & Sleep Medicine [facility] #2 [place] [phone] Raghu Green MD #2 [place] [phone] 09/17/2024 1:00 PM CDT Office Visit [facility] - Family Medicine - [place] #2 [place] [address] Nicolas Greer MD #[address] [address] documented as of this encounter Procedures Procedure Name Priority Date/Time Associated Diagnosis Comments VITAMIN D, 25 HYDROXY TOTAL Routine 01/13/2022 12:08 PM SEMICONDUCTOR DEVELOPMENT TECHNICIAN Hypercalcemia CBC WITH AUTO DIFFERENTIAL Routine 01/13/2022 12:08 PM SEMICONDUCTOR DEVELOPMENT TECHNICIAN Hypercalcemia PHOSPHORUS (PO4) Routine 01/13/2022 12:0 8 PM SEMICONDUCTOR DEVELOPMENT TECHNICIAN Hypercalcemia PARATHYROID HORMONE PTH INTACT Routine 01/13/2022 12:08 PM SEMICONDUCTOR DEVELOPMENT TECHNICIAN Hypercalcemia MAGNESIUM (MG) Routine 01/13/2022 12:08 PM SEMICONDUCTOR DEVELOPMENT TECHNICIAN Hypercalcemia IONIZED CALCIUM (ICA) Routine 01/13/2022 12:08 PM SEMICONDUCTOR DEVELOPMENT TECHNICIAN Hypercalcemia COMPLETE BLOOD COUNT (CBC) WITH DIFF Routine 01/13/2022 12:08 PM SEMICONDUCTOR DEVELOPMENT TECHNICIAN Hypercalcemia BASIC METABOLIC PANEL W/ CALCIUM TOTAL Routine 01/13/2022 12:08 PM SEMICONDUCTOR DEVELOPMENT TECHNICIAN Hypercalcemia documented in this encounter Results * (ABNORMAL) CBC WITH AUTO DIFFERENTIAL (01/13/2022 12:08 PM SEMICONDUCTOR DEVELOPMENT TECHNICIAN) WBC 10.30 4.00 - 12.00 10(3)/mcL 01/13/2022 12:51 PM SEMICONDUCTOR DEVELOPMENT TECHNICIAN [facility] RBC 3.76(L) 3.80 - 5.30 10(6)/mcL 01/13/2022 12:51 PM SEMICONDUCTOR DEVELOPMENT TECHNICIAN [facility] HEMOGLOBIN (HGB) 11.4(L) 12.0 - 15.8 g/dL 01/13/2022 12:51 PM SEMICONDUCTOR DEVELOPMENT TECHNICIAN [facility] HEMATOCRIT (HCT) 38.0 36.0 - 47.0 % 01/13/2022 12:51 PM [facility] MCV 101.1(H) 82.0 - 96.0 fL 01/13/2022 12:51 PM [facility] MCH 30.3 26.0 - 34.0 pg 01/13/2022 12:51 PM [facility] MCHC 30.0(L) 31.0 - 36.0 g/dL 01/13/2022 12:51 PM [facility] PLATELET COUNT 323 140 - 440 10(3)/[facility] 01/13/2022 12:51 PM [facility] RDW 13.2 11.8 - 15.5 % 01/13/2022 12:51 PM [facility] MPV 10.2 9.7 - 12.4 fL 01/13/2022 12:51 PM [facility] NEUTROPHILS 90.8(H) 47.0 - 73.0 % 01/13/2022 12:51 PM [facility] LYMPHOCYTES 5.6(L) 18.0 - 42.0 % 01/13/2022 12:51 PM [facility] MONOCYTES 3.2(L) 4.0 - 12.0 % 01/13/2022 12:51 PM [facility] EOSINOPHILS 0.2 0.0 - 5.0 % 01/13/2022 12:51 PM [facility] BASOPHILS 0.2 0.0 - 1.0 % 01/13/2022 12:51 PM [facility] ABSOLUTE NEUTROPHILS 9.35(H) 1.60 - 7.70 10(3)/mcL 01/13/2022 12:51 PM [facility] ABSOLUTE LYMPHOCYTES 0.58(L) 1.30 - 3.20 10(3)/mcL 01/13/2022 12:51 PM [facility] ABSOLUTE MONOCYTES 0.33 0.20 - 1.00 10(3)/mcL 01/13/2022 12:51 PM [facility] ABSOLUTE EOSINOPHIL 0.02 0.00 - 0.40 10(3)/mcL 01/13/2022 12:51 PM SEMICONDUCTOR DEVELOPMENT TECHNICIAN [facility] ABSOLUTE BASOPHILS 0.02 0.00 - 0.10 10(3)/mcL 01/13/2022 12:51 PM SEMICONDUCTOR DEVELOPMENT TECHNICIAN [facility] NRBC PER 100 WBC 0 01/14/20 12:51 PM SEMICONDUCTOR DEVELOPMENT TECHNICIAN [facility] Blood No Phlebotomy Charged / Unknown 01/13/2022 12:08 PM SEMICONDUCTOR DEVELOPMENT TECHNICIAN 01/13/2022 12:43 PM SEMICONDUCTOR DEVELOPMENT TECHNICIAN Nicolas Greer MD HEMATOLOGY ORDERABLES Final Result [facility] [address] [place] [address] * (ABNORMAL) PARATHYROID HORMONE PTH INTACT (01/13/2022 12:08 PM SEMICONDUCTOR DEVELOPMENT TECHNICIAN) PTH INTACT 165(H) 15 - 65 pg/mL 01/13/2022 1:29 PM SEMICONDUCTOR DEVELOPMENT TECHNICIAN [facility] Blood No Phlebotomy Charged / Unknown 01/13/2022 12:08 PM SEMICONDUCTOR DEVELOPMENT TECHNICIAN 01/13/2022 12:43 PM SEMICONDUCTOR DEVELOPMENT TECHNICIAN Nicolas Greer MD CHEMISTRY ORDERABLES Final Result [facility] [address] [place] [address] * VITAMIN D, 25 HYDROXY TOTAL (01/13/2022 12:08 PM SEMICONDUCTOR DEVELOPMENT TECHNICIAN) VITAMIN D, 25 HYDROX 40 >=30 ng/mL 01/13/2022 1:54 PM SEMICONDUCTOR DEVELOPMENT TECHNICIAN [facility] Blood No Phlebotomy Charged / Unknown 01/13/2022 12:08 PM SEMICONDUCTOR DEVELOPMENT TECHNICIAN 01/13/2022 12:43 PM SEMICONDUCTOR DEVELOPMENT TECHNICIAN Narrative [facility] - 01/13/2022 1:54 PM SEMICONDUCTOR DEVELOPMENT TECHNICIAN Published reference ranges for Vitamin D vary depending on time and place and method of testing, and on patient's age, sex, ethnicity and levels of other measured analytes such as parathormone, calcium and phosphorus. The result should be evaluated in conjunction with clinical findings and suspicions. [place] of [employer] and Endocrine Clinical Practice Guidelines: Status Vitamin D levels (ng/mL) Deficient <=20 At risk of inadequacy 21-29 Sufficient 30-100 Centers of Disease Control and Prevention Guidelines: Status Vitamin D levels (ng/mL) Deficient <13 At risk of inadequacy 13-19 Sufficient 20-50 Possibly harmful >50 References: [place] [employer], 2010 Dietary reference intakes for calcium and vitamin D. Sheets [place]: The National Academies Press. Deni M, Wilfredo N, Belkis العراقي, et al., Evaluation, treatment, and prevention of Vitamin D deficiency: an Endocrinology Clinical Practice Guideline. JCEM 2011 96: 7 0711-6441. Roxana A, Wilton C, Juan D, et al., Vitamin D Status: [place], , [facility] data brief, no. 59, MD Mel: National Center for Health Statistics. 2011. Nicolas Greer MD CHEMISTRY ORDERABLES Final Result [facility] [address] [place] [address] * (ABNORMAL) MAGNESIUM (MG) (01/13/2022 12:08 PM SEMICONDUCTOR DEVELOPMENT TECHNICIAN) MAGNESIUM 1.5(L) 1.8 - 2.5 mg/dL 01/13/2022 1:39 PM SEMICONDUCTOR DEVELOPMENT TECHNICIAN [facility] Blood No Phlebotomy Charged / Unknown 01/13/2022 12:08 PM SEMICONDUCTOR DEVELOPMENT TECHNICIAN 01/13/2022 12:43 PM SEMICONDUCTOR DEVELOPMENT TECHNICIAN Nicolas Greer MD CHEMISTRY ORDERABLES Final Result [facility] [address] [place] [address] * (ABNORMAL) PHOSPHORUS (PO4) (01/13/2022 12:08 PM SEMICONDUCTOR DEVELOPMENT TECHNICIAN) PHOSPHORUS 2.0(L) 2.4 - 4.7 mg/dL 01/13/2022 1:39 PM SEMICONDUCTOR DEVELOPMENT TECHNICIAN [facility] Blood No Phlebotomy Charged / Unknown 01/13/2022 12:08 PM SEMICONDUCTOR DEVELOPMENT TECHNICIAN 01/13/2022 12:43 PM SEMICONDUCTOR DEVELOPMENT TECHNICIAN Nicolas Greer MD CHEMISTRY ORDERABLES Final Result [facility] [address] [place] [address] * (ABNORMAL) BASIC METABOLIC PANEL W/ CALCIUM TOTAL (01/13/2022 12:08 PM SEMICONDUCTOR DEVELOPMENT TECHNICIAN) SODIUM 142 136 - 144 mmol/L 01/13/2022 1:39 PM [facility] POTASSIUM 4.0 3.5 - 5.1 mmol/L 01/13/2022 1:39 PM [facility] CHLORIDE 98(L) 100 - 110 mmol/L 01/13/2022 1:39 PM [facility] CO2, VENOUS 33(H) 22 - 32 mmol/L 01/13/2022 1:39 PM [facility] ANION GAP 15.0 8.0 - 20.0 mmol/L 01/13/2022 1:39 PM SEMICONDUCTOR DEVELOPMENT TECHNICIAN [facility] GLUCOSE 133(H) 70 - 99 mg/dL 01/13/2022 1:39 PM [facility] BUN 15 8 - 23 mg/dL 01/13/2022 1:39 PM [facility] CREATININE, BLOOD 0.89 0.60 - 1.10 mg/dL 01/13/2022 1:39 PM [facility] BUN/CREATININE RATIO 17 12 - 20 ratio 01/13/2022 1:39 PM [facility] CALCIUM 11.5(H) 8.9 - 10.3 mg/dL 01/13/2022 1:39 PM SEMICONDUCTOR DEVELOPMENT TECHNICIAN [facility] GFR, ESTIMATED >60 >=60 01/13/2022 1:39 PM SEMICONDUCTOR DEVELOPMENT TECHNICIAN [facility] Comment: Creatinine Clearance is the preferred criteria for selecting drug dose adjustments in renally impaired patients. The GFR is provided as additional pertinent clinical information. GFR is reported in mL/min/1.73 sq m. Calculation based on the Chronic Kidney Disease Epidemiology Collaboration (CKD- EPI) equation refit without adjustment for race. GFR, EST. >60 >=60 022 1:39 PM SEMICONDUCTOR DEVELOPMENT TECHNICIAN [facility] GFR, EST. NONAFRICAN >60 >=60 01/13/2022 1:39 PM SEMICONDUCTOR DEVELOPMENT TECHNICIAN [facility] Blood No Phlebotomy Charged / Unknown 01/13/2022 12:08 PM SEMICONDUCTOR DEVELOPMENT TECHNICIAN 01/13/2022 12:43 PM SEMICONDUCTOR DEVELOPMENT TECHNICIAN Nicolas Greer MD CHEMISTRY ORDERABLES Final Result Performing Organization Address City/[facility]/ZIP Co de Phone Number [facility] [address] [place] [address] * (ABNORMAL) IONIZED CALCIUM (ICA) (01/13/2022 12:08 PM SEMICONDUCTOR DEVELOPMENT TECHNICIAN) CALCIUM IONIZED 1.39(H) 1.19 - 1.31 mmol/L 01/13/2022 12:55 PM SEMICONDUCTOR DEVELOPMENT TECHNICIAN [facility] Blood No Phlebotomy Charged / Unknown 01/13/2022 12:08 PM SEMICONDUCTOR DEVELOPMENT TECHNICIAN 01/13/2022 12:43 PM SEMICONDUCTOR DEVELOPMENT TECHNICIAN Nicolas Greer MD CHEMISTRY ORDERABLES Final Result [facility] [address] [place] [address] documented in this encounter Visit Diagnoses Diagnosis Hypercalcemia documented in this encounter Additional Health Concerns Assessment Noted Time PHQ-9 Depression Total Score: 0 01/08/20 20 10:45 AM SEMICONDUCTOR DEVELOPMENT TECHNICIAN documented as of this encounter Care Teams Service Consultant Relationship Specialty Start Date End Date Nicolas Greer MD #[address] [address] PCP - General Family Medicine 09/08/21 Ariel Christiansen MD Consulting Physician Cardiovascular Disease - Cardiology 07/19/16 [place] [address] [address] Dynamics Ax Consultant Pulmonary Disease 06/18/20 Keny Saldaña APRN, FIELD MARKETING COORDINATOR #[address] [address] Nurse Practitioner Advanced Practice Nurse 09/08/21 Cristian Dewitt MD #[address] [address] Consulting Physician Cardiovascular Disease - Cardiology 10/06/21 02/07/24 Ale Spain, RN [place] Pattern Carrier 03/15/22 02/12/23 Ale Spain, RN [place] Nurse Pattern Carrier 03/15/22 02/13/23 Yamel Kurtz III, MD #2 [place] [address] Consulting Physician Urology 09/11/22 Raghu Green MD #2 [place] [address] Consulting Physician Pulmonary Disease 01/04/22 Warren Osborn MD #[address] [address] Consulting Physician Colon and Rectal Surgery 05/21/23 Ale Spain, RN [place] Nurse Pattern Carrier 09/05/23 Chetan Do MD #[address] [address] Consulting Physician Endocrinology 01/23/24 documented as of this encounter
--- OUTSIDE RECORDS SUMMARY | 2024-03-24 13:02 | XMS_ITS | Encounter Summary ---
Author Organization [facility] Address [address] [place] [address] Phone Care Team Providers Care Linotype Machinist Name Role Phone Nicolas Greer MD Primary Care Provider [phone] Ariel Christiansen MD Unavailable [phone] Parmjit Vogel MD Unavailable [phone] Nicolas Greer MD Primary Care Provider [phone] Keny Saldaña APRN, WEAPONS DESIGNER Unavailable Cristian Dewitt MD Unavailable Ale Black RN Unavailable Unavailable Ale Spain RN Unavailable Unavailable Jerardo MCCANN MD, Courtney Unavailable [phone] Raghu Green MD Unavailable Warren Osborn MD Unavailable Ale Spain RN Unavailable Unavailable Chetan Do MD Unavailable Reason for Visit * Reason Comments Medication Refill Encounter Details Date Type Department Care Team (Late st Contact Info) Description 06/07/2020 Refill [facility] [address] [place] [address] Nicolas Greer MD #2 [facility] [address] [place] [address] Medication Refill Social History Tobacco Use Types Packs/Day Years Used Date Smoking Tobacco: Former Cigarettes 0.5 50 Smokeless Tobacco: Never Comments:1/2 pack now Alcohol Use Standard Drinks/Week Comments No 0 (1 standard drink = 0.6 oz pur e alcohol) PHQ-2 Answer Date Recorded PHQ-2 Score 0 11/05/2018 Comments No Sex and Gender Information Value Date Recorded Sex Assigned at Not on file Legal Sex Female 7:47 PM CDT Gender Identity Not on file Sexual Orientation Not on file Occupation Industry Job Start Date Job End Date Retired [employer] Not on file Not on file Not on file COVID-19 Exposure Response Date Recorded In the last month, have you been in contact with someone who was confirmed or suspected to have Coronavirus / COVID-19? No / Unsure 06/08/2020 2:42 PM CDT documented as of this encounter Miscellaneous Notes * Telephone Encounter - Kalya Meehan RN - 06/07/2020 11:38 AM CDT Pt has an appt with you tomorrow. Refill? Medication failed the protocol, provider to review and approve the medication order if appropriate. Requested Prescriptions Pending Prescriptions Disp Refills alendronate (FOSAMAX) 35 MG Tablet [Pharmacy Med Name: Alendronate Sodium 35 MG Oral Tablet] 12 Tablet 0 Sig: Take 1 tablet by mouth once a week [facility] Endocrinology: Bisphosphonates Passed - 06/07/2020 9:45 AM Passed - Valid encounter within last 12 months Past Office Visits Recent Outpatient Visits 2 months ago Chronic obstructive pulmonary disease, unspecified COPD type (HCC) [facility] - Family Medicine - Nicolas Waters MD 7 months ago Hyperlipidemia, unspecified hyperlipidemia type [facility] - [facility] Medicine - Nicolas Waters MD 10 months ago Pulmonary emphysema, unspecified emphysema type (HCC) [facility] - [facility] Medicine - Keny Crowder APN, WEAPONS DESIGNER 1 year ago Ptosis of both eyelids [facility] Medical [facility] - Keny Crowder APN, CNP 1 year ago Hypothyroidism, unspecified type [facility] - Nicolas Waters MD Upcoming Appointments Future Appointments Tomorrow Nicolas Greer MD [facility] - [place]af[place], [facility] [employer] PAPER COATING SUPERVISOR - Recent and Past Visits Recent Visits Date Type Provider Dept 03/11/20 Office Visit Nicolas rGeer MD [facility] 10/14/19 Office Visit Nicolas Greer MD [facility] 07/14/19 Office Visit Keny Saldaña APN, CNP [facility] 05/22/19 Telemedicine Keny Saldaña APN, CNP [facility] Showing recent visits within past 460 days with a meds authorizing provider and meeting all other requirements Future Appointments Date Type Provider Dept 06/08/20 Appointment Nioclas Greer MD [facility] Showing future appointments within next 90 days with a meds authorizing provider and meeting all other requirements lovastatin (MEVACOR) 40 MG Tablet [Pharmacy Med Name: Lovastatin 40 MG Oral Tablet] 45 Tablet 0 Sig: Take 1/2 (one-half) tablet by mouth once daily [facility] CoA Reductase Inhibitors Protocol Passed - 06/07/2020 9:45 AM Passed - Visit with relevant provider in past 12 months or upcoming 90 days Recent Visits Date Type Provider Dept 03/11/20 Office Visit Nicolas Greer MD [facility] 10/14/19 Office Visit Nicolas Greer MD [facility] 07/14/19 Office Visit Keny Saldaña APN, CNP [facility] Showing recent visits within past 365 days and meeting all other requirements Future Appointments Date Type Provider Dept 06/08/20 Appointment Nicolas Greer MD [facility] Showing [...] Take 1 tablet by mouth once daily [facility] Not Delegated - Psychiatry: Antidepressants Failed - 06/07/2020 9:45 AM Failed - This refill cannot be delegated Passed - Valid encounter within last 12 months Past Office Visits Recent Outpatient Visits 2 months ago Chronic obstructive pulmonary disease, unspecified COPD type (HCC) [facility] - Nicolas Waters MD 7 months ago Hyperlipidemia, unspecified hyperlipidemia type [facility] - Nicolas Waters MD 10 months ago Pulmonary emphysema, unspecified emphysema type (HCC) [facility] - Keny Crowder APN, WEAPONS DESIGNER 1 year ago Ptosis of both eyelids [facility] Keny Crowder APN, WEAPONS DESIGNER 1 year ago Hypothyroidism, unspecified type [facility] Nicolas Waters MD Upcoming Appointments Future Appointments Tomorrow Nicolas Greer MD [facility] PAP[facility] COATING SUPERVISOR - Recent and Past Visits Recent Visits Date Type Provider Dept 03/11/20 Office Visit Nicolas Greer MD [facility] 10/14/19 Office Visit Nicolas Greer MD [facility] 07/14/19 Office Visit Keny Saldaña APN, WEAPONS DESIGNER [facility] 05/22/19 Telemedicine Keny Saldaña APN, CNP [facility] [place] Showing recent visits within past 460 days with a meds authorizing provider and meeting all other requirements Future Appointments Date Type Provider Dept 06/08/20 Appointment Nicolas Greer MD [facility] Showing future appointments within next 90 days with a meds authorizing provider and meeting all other requirements benzonatate (TESSALON) 100 MG Capsule [Pharmacy Med Name: Benzonatate 100 MG Oral Capsule] 30 Capsule 0 Sig: Take 1 capsule by mouth three times daily as needed for cough [facility] Not Delegated - Ear, Nose, and Throat: Antitussives/Expectorants Failed - 06/07/2020 9:45AM Failed - This refill cannot be delegated Passed - Valid encounter within last 12 months Past Office Visits Recent Outpatient Visits 2 months ago Chronic obstructive pulmonary disease, unspecified COPD type (HCC) [facility] Nicolas Waters MD 7 months ago Hyperlipidemia, unspecified hyperlipidemia type [facility] Nicolas Waters MD 10 months ago Pulmonary emphysema, unspecified emphysema type (HCC) [facility] - Keny Crowder APN, CNP 1 year ago Ptosis of both eyelids [facility] Keny Crowder APN, CNP 1 year ago Hypothyroidism, unspecified type [facility] Nicolas Waters MD Upcoming Appointments Future Appointments Tomorrow Nicolas Greer MD [facility] P[facility]ER COATING SUPERVISOR - Recent and Past Visits Recent Visits Date Type Provider Dept 03/11/20 Office Visit Nicolas Greer MD [facility] 10/14/19 Office Visit Nicolas Greer MD [facility] 07/14/19 Office Visit Keny Saldaña APN, CNP [facility] 05/22/19 Telemedicine Keny Saldaña APN, CNP [facility] Showing recent visits within past 460 days with a meds authorizing provider and meeting all other requirements Future Appointments Date Type Provider Dept 06/08/20 Appointment Nicolas Greer MD [facility] Showing future appointments within next 90 days with a meds authorizing provider and meeting all other requirements documented in this encounter Plan of Treatment Upcoming Encounters Date Type Department Care Team (Late st Contact Info) Description 04/24/2024 2:00 PM CDT Office Visit [facility] Medical [facility] - Endocrinology - [place] [address] [place] [address] Chetan Do MD #[address] [address] 08/14/2024 1:00 PM CDT Office Visit [facility] Medical [facility] - Pulmonology & Sleep Medicine [facility] #[address] [place] [address] Raghu Green MD [address] [place] [address] 09/17/2024 1:00 PM CDT Office Visit [facility] Medical [facility] - Family Medicine - [place] [address] [place] [address] Nicolas Greer MD #[address] [address] documented as of this encounter Visit Diagnoses Diagnosis Depression with anxiety Dysthymic disorder Pulmonary emphysema, unspecified emphysema type (HCC) documented in this encounter Additional Health Concerns Infection Onset Date Last Indicated Resolved Time COVID - 19 09/02/2021 09/02/2021 09/03/2021 2:05 PM CDT COVID - 19 12/24/2021 12/24/2021 12/26/2021 8:07 AM MANAGER MEETING Respiratory Rule Out - RPA 12/24/2021 12/24/2021 1 02/24/2021 4:41 PM MANAGER MEETING Influenza 12/24/2021 12/24/2021 12/31/2021 12:1 6 AM MANAGER MEETING Assessment Noted Time PHQ-9 Depression Total Score: 0 02/12/19 20 10:45 AM MANAGER MEETING documented as of this encounter Care Teams Linotype Machinist Relationship Specialty Start Date End Date Nicolas Greer MD #[address] [address] PCP - General Family Medicine 12/22/14 09/07/21 Nicolas Greer MD #[address] [address] PCP - General Family Medicine 09/08/21 Ariel Christiansen MD #[address] [address] Consulting Physician Cardiovascular Disease - Cardiology 07/19/16 [place] [id number] [address] [employer] Pulmonary Disease 06/18/20 Keny Saldaña APRN, WEAPONS DESIGNER #[address] [address] Nurse Practitioner Advanced Practice Nurse 09/08/21 Cristian Dewitt MD #[address] [address] Consulting Physician Cardiovascular Disease - Cardiology 10/06/21 02/07/24 Ale Spain, [place] Carder Blankets 03/15/22 02/12/23 Ale Spain RN [place] Nurse Carder Blankets 03/15/22 02/13/23 Yamel Kurtz III, MD #[address] [place] [address] Consulting Physician Urology 09/11/22 Raghu Green MD #2 [place] [address] Consulting Physician Pulmonary Disease 01/04/22 Warren Osborn MD #[address] [address] Consulting Physician Colon and Rectal Surgery 05/21/23 Ale Spain, RN [place] Nurse Carder Blankets 09/05/23 Chetan Do MD #[address] [id number] Consulting Physician Endocrinology 01/23/24 documented as of this encounter
--- OUTSIDE RECORDS SUMMARY | 2024-03-24 13:02 | XMS_ITS | Encounter Summary ---
Author Organization [facility] Address [address] [place] [address] Phone Care Team Providers Care Director Group Sales Name Role Phone Nicolas Greer MD Primary Care Provider [phone] Ariel Christiansen MD Unavailable [phone] Parmjit Vogel MD Unavailable [phone] Nicolas Greer MD Primary Care Provider [phone] Keny Saldaña APRN, SYSTEMS AUDITOR Unavailable Cristian Dewitt MD Unavailable Ale Black RN Unavailable Unavailable Ale Spain RN Unavailable Unavailable Jearrdo MCCANN MD, Courtney Unavailable [phone] Raghu Green MD Unavailable Warren Osborn MD Unavailable Ale Spain RN Unavailable Unavailable Chetan Do MD Unavailable Reason for Visit * Reason Comments Medication Refill Encounter Details Date Type Department Care Team (Late st Contact Info) Description 03/09/2020 Refill [facility] #2 [place] [address] Nicolas Greer MD #2 [facility] [address] [place] [address] Medication Refill Social History Tobacco Use Types [...] Job Start Date Job End Date Retired [employer] Not on file Not on file Not on file COVID-19 Exposure Response Date Recorded In the last month, have you been in contact with someone who was confirmed or suspected to have Coronavirus / COVID-19? No / Unsure 03/11/2020 9:15 AM MITOCHONDRIAL DISORDERS COUNSELOR documented as of this encounter Miscellaneous Notes * Telephone Encounter - Kayla Meehan RN - 03/09/2020 11:38 AM CST Medication failed the protocol, provider to review and approve the medication order if appropriate. Requested Prescriptions Pending Prescriptions Disp Refills benzonatate (TESSALON) 100 MG Capsule [Pharmacy Med Name: Benzonatate 100 MG Oral Capsule] 30 Cap 0 Sig: Take 1 capsule by mouth three times daily as needed for cough Not Delegated - Ear, Nose, and Throat: Antitussives/Expectorants Failed - 03/09/2020 11:38 AM Failed - This refill cannot be delegated Passed - Valid encounter within last 12 months Past Office Visits Recent Outpatient Visits 4 months ago Hyperlipidemia, unspecified hyperlipidemia type [facility] - Nicolas Waters MD 7 months ago Pulmonary emphysema, unspecified emphysema type (HCC) [facility] - [facility] Medicine - Keny Crowder COMPUTER EQUIPMENT INSTALLER, SYSTEMS AUDITOR 9 months ago Ptosis of both eyelids [facility] - Family Medicine - Keny Crowder APN, CNP 1 year ago Hypothyroidism, unspecified type [facility] - Nicolas Waters MD 1 year ago Non-insulin dependent type 2 diabetes mellitus (HCC) [facility] - Nicolas Waters MD Upcoming Appointments Future Appointments In 2 days Nicolas Greer MD [facility] WEB SUPPORT ENGINEER - Recent and Past Visits Recent Visits Date Type Provider Dept 10/14/19 Office Visit Nicolas Greer MD [facility] 07/14/19 Office Visit Keny Saldaña APN, CNP [facility] 05/22/19 Telemedicine Keny Saldaña APN, CNP [facility] 02/12/19 Office Visit Nicolas Greer MD [facility] Showing recent visits within past 460 days with a meds authorizing provider and meeting all other requirements Future Appointments Date Type Provider Dept 03/11/20 Appointment Nicolas Greer MD [facility] Showing future appointments within next 90 days with a meds authorizing provider and meeting all other requirements Signed Prescriptions Disp Refills lovastatin (MEVACOR) 40 MG Tablet 45 Tab 0 Sig: Take 1/2 (one-half) tablet by mouth once daily Cardiovascular: Antilipid - HMG-CoA Reductase Inhibitors Passed - 03/09/2020 11:12 AM Passed - Valid encounter within last 12 months Past Office Visits Recent Outpatient Visits 4 months ago Hyperlipidemia, unspecified hyperlipidemia type [facility] - Nicolas Waters MD 7 months ago Pulmonary emphysema, unspecified emphysema type (HCC) [facility] - Keny Crowder APN, MARY 9 months ago Ptosis of both eyelids [facility] Keny Esteves APN, CNP 1 year ago Hypothyroidism, unspecified type [facility] Nicolas Waters MD 1 year ago Non-insulin dependent type 2 diabetes mellitus (HCC) [facility] Nicolas Esquivel MD Upcoming Appointments Future Appointments In 2 days Nicolas Greer MD [facility] WEB SUPPORT ENGINEER - Recent and Past Visits Recent Visits Date Type Provider Dept 10/14/19 Office Visit Nicolas Greer MD [facility] 07/14/19 Office Visit Keny Saldaña APN, MARY [facility] 05/22/19 Telemedicine Keny Saldaña APN, CNP [facility] 02/12/19 Office Visit Nicolas Greer MD [facility] Showing recent visits within past 460 days with a meds authorizing provider and meeting all other requirements Future Appointments Date Type Provider Dept 03/11/20 Appointment Nicolas Greer MD [facility] Showing future appointments within next 90 days with a meds authorizing provider and meeting all other requirements alendronate (FOSAMAX) 35 MG Tablet 12 Tab 0 Sig: Take 1 tablet by mouth once a week Endocrinology: Bisphosphonates Passed - 03/09/2020 11:12 AM Passed - Valid encounter within last 12 months Past Office Visits Recent Outpatient Visits 4 months ago Hyperlipidemia, unspecified hyperlipidemia type [facility] - Nicolas Waters MD 7 months ago Pulmonary emphysema, unspecified emphysema type (HCC) [facility] - Keny Crowder APN, MARY 9 months ago Ptosis of both eyelids [facility] Keny Crowder APN, MARY 1 year ago Hypothyroidism, unspecified type [facility] Nicolas Waters MD 1 year ago Non-insulin dependent type 2 diabetes mellitus (HCC) [facility] Nicolas Waters MD Upcoming Appointments Future Appointments In 2 days Nicolas Greer MD [facility] WEB SUPPORT ENGINEER - Recent and Past Visits Recent Visits Date Type Provider Dept 10/14/19 Office Visit Nicolas Greer MD [facility] 07/14/19 Office Visit [facility] Saldaña APN, MARY [facility] Keny Saldaña APN, MARY [facility] Office Visit Nicolas Greer MD [facility] Showing recent visits within past 460 days with a meds authorizing provider and meeting all other requirements Future Appointments Date Type Provider Dept 03/11/20 Appointment Nicolas Greer MD [facility] Showing future appointments within next 90 days with a meds authorizing provider and meeting all other requirements CHONDRIAL DISORDERS COUNSELOR * Telephone Encounter - Kayla Meehan RN - 03/09/2020 11:37 AM CST Medication approved and signed per standing order protocol. CHONDRIAL DISORDERS COUNSELOR documented in this encounter Plan of Treatment Upcoming Encounters Date Type Department Care Team (Late st Contact Info) Description 04/24/2024 2:00 PM CDT Office Visit [facility] Medical [facility] - Endocrinology - [place] #2 [place] [address] Chetan Do MD #[address] [address] 08/14/2024 1:00 PM CDT Office Visit [facility] Medical [facility] - Pulmonology & Sleep Medicine - [place] #2 [place] [address] Raghu Green MD #2 [facility] [address] 09/17/2024 1:00 PM CDT Office Visit [facility] Medical [facility] - Family Medicine - [place] #2 [place] [address] Nicolas Greer MD [address] [address] documented as of this encounter Visit Diagnoses Diagnosis Pulmonary emphysema, unspecified emphysema type (HCC) documented in this encounter Additional Health Concerns Infection Onset Date Last Indicated Resolved Time COVID - 19 03/11/2020 03/11/2020 03/31/2020 12:1 8 AM MITOCHONDRIAL DISORDERS COUNSELOR COVID - 19 09/02/2021 09/02/2021 09/03/2021 2:05 PM CDT COVID - 19 12/24/2021 12/24/2021 12/26/2021 8:07 AM MITOCHONDRIAL DISORDERS COUNSELOR Respiratory Rule Out - RPA 12/24/2021 12/24/2021 1 02/24/2021 4:41 PM MITOCHONDRIAL DISORDERS COUNSELOR Influenza 12/24/2021 12/24/2021 12/31/2021 12:1 6 AM MITOCHONDRIAL DISORDERS COUNSELOR Assessment Noted Time PHQ-9 Depression Total Score: 0 02/12/19 10:45 AM MITOCHONDRIAL DISORDERS COUNSELOR documented as of this encounter Care Teams Director Group Sales Relationship Specialty Start Date End Date Nicolas Greer MD #[address] [address] PCP - General Family Medicine 12/22/14 09/07/21 Nicolas Greer MD #[address] [address] PCP - General Family Medicine 09/08/21 Ariel Christiansen MD #[address] [address] Consulting Physician Cardiovascular Disease - Cardiology 07/19/16 [place] [address] [address] Metalworker Pulmonary Disease 06/18/20 Keny Saldaña APRN, SYSTEMS AUDITOR #[address] [address] Nurse Practitioner Advanced Practice Nurse 09/08/21 Cristian Dewitt MD #[address] [address] Consulting Physician Cardiovascular Disease - Cardiology 10/06/21 02/07/24 Ale Spain, RN [place] Knot Tying Operator 03/15/22 02/12/23 Ale Spain, RN [place] Nurse Knot Tying Operator 03/15/22 02/13/23 Yamel Kurtz III, MD #2 [place] [address] Consulting Physician Urology 09/11/22 Raghu Green MD #2 [place] [address] Consulting Physician Pulmonary Disease 01/04/22 Warren Osborn MD #[address] [address] Consulting Physician Colon and Rectal Surgery 05/21/23 Ale Spain, RN [place] Nurse Knot Tying Operator 09/05/23 Chetan Do MD #[address] [phone] Consulting Physician Endocrinology 01/23/24 documented as of this encounter
--- OUTSIDE RECORDS SUMMARY | 2024-03-24 13:02 | XMS_ITS | Encounter Summary ---
Author Organization [facility] Address [address] [place] [address] Phone Care Team Providers Care Dietist Name Role Phone Nicolas Greer MD Primary Care Provider [phone] Ariel Christiansen MD Unavailable [phone] Parmjit Vogel MD Unavailable [phone] Nicolas Greer MD Primary Care Provider [phone] Keny Saldaña APRN, DOG SHOW JUDGE Unavailable Cristian Dewitt MD Unavailable Ale Black RN Unavailable Unavailable Ale Spain RN Unavailable Unavailable Jerardo MCCANN MD, Courtney Unavailable [phone] Raghu Green MD Unavailable Warren Osborn MD Unavailable Ale Spain RN Unavailable Unavailable Chetan Do MD Unavailable Reason for Visit * Reason Onset Date Comments Follow-up 09/02/2021 Encounter Details Date Type Department Care Team (Late st Contact Info) Description 09/02/2021 Telephone [facility] [address] [place] [address] Nicolas Greer MD [address] [address] Follow-up Social History Tobacco Use Types Packs/Day Years [...] Job Start Date Job End Date Retired [employer] Not on file Not on file Not on file COVID-19 Exposure Response Date Recorded In the last 10 days, have yo u been in contact with someone who was confirmed or suspected to have Coronavirus/COVID-19? No / Unsure 09/02/2021 1:52 PM CDT documented as of this encounter Miscellaneous Notes * Telephone Encounter - Sujata Jeff RMA - 09/05/2021 10:55 AM CDT LVM * Telephone Encounter - Nicolas Greer MD - 09/02/2021 8:36 PM CDT Schedule her to see me or Keny for upon hospital discharge. Thanks! * Telephone Encounter - Alba Moya RN - 09/02/2021 9:49 AM CDT Leno HAAS is calling from [facility] - 08/03 video visit to serve as face to face to HH Medicare requirement. They submitted this and it was rejected. States COPD dx was not mentioned and this was the dx used for HH referral. Asking if this note could be addended? Telephone encounter would not work, has to be at least video. Can you addend the note? Or does she need to come in for face to face? Says they would have to discharge her and then readmit once face to face is done, but they won't get paid for the last month of services if we can't come up with something. documented in this encounter Plan of Treatment Upcoming Encounters Date Type Department Care Team (Late st Contact Info) Description 04/24/2024 2:00 PM CDT [facility] Visit [facility] - [facility]ocr[facility]ology - [place] #2 [place] [address] Chetan Do MD #[address] [address] 08/14/2024 1:00 PM CDT [facility] - Pulmonology & Sleep Medicine - [place] #2 [place] [address] Raghu Green MD #2 [place] [address] 09/17/2024 1:00 PM CDT Office Visit [facility] - Family Medicine - [place] #2 [place] [address] Nicolas Greer MD #[address] [address] documented as of this encounter Visit Diagnoses Not on filedocumented in this encounter Additional Health Concerns Infection Onset Date Last Indicated Resolved Time COVID - 19 09/02/2021 09/02/2021 09/03/2021 2:05 PM CDT COVID - 19 12/24/2021 12/24/2021 12/26/2021 8:07 AM REAL ESTATE ACQUISITION ANALYST Respiratory Rule Out - RPA 12/24/2021 12/24/2021 1 02/24/2021 4:41 PM REAL ESTATE ACQUISITION ANALYST Influenza 12/24/2021 12/24/2021 12/31/2021 12:1 6 AM REAL ESTATE ACQUISITION ANALYST Assessment Noted Time PHQ-9 Depression Total Score: 0 02/12/19 10:45 AM REAL ESTATE ACQUISITION ANALYST documented as of this encounter Care Teams Dietist Relationship Specialty Start Date End Date Nicolas Greer MD #[address] [address] PCP - General Family Medicine 12/22/14 09/07/21 Nicolas Greer MD #[address] [address] PCP - General Family Medicine 09/08/21 Ariel Christiansen MD #[address] [address] Consulting Physician Cardiovascular Disease - Cardiology 07/19/16 [place] [id number] [address] Supervisor Fiber Locking Pulmonary Disease 06/18/20 Keny Saldaña, FBI PROFILER, DOG SHOW JUDGE #[address] [address] Nurse Practitioner Advanced Practice Nurse 09/08/21 Cristian Dewitt MD #[address] [address] Consulting Physician Cardiovascular Disease - Cardiology 10/06/21 02/07/24 Ale Spain, RN [place] Paint Grinder 03/15/22 02/12/23 Ale Spain, RN [place] Nurse Paint Grinder 03/15/22 02/13/23 Yamel Kurtz III, MD #2 [place] [address] Consulting Physician Urology 09/11/22 Raghu Green MD #2 [place] [address] Consulting Physician Pulmonary Disease 01/04/22 Warren Osborn MD #[address] [address] Consulting Physician Colon and Rectal Surgery 05/21/23 Ale Spain, WALDO [place] Nurse Paint Grinder 09/05/23 Chetan Do MD #[address] [address] Consulting Physician Endocrinology 01/23/24 documented as of this encounter
--- OUTSIDE RECORDS SUMMARY | 2024-03-24 13:02 | XMS_ITS | Encounter Summary ---
Author Organization [facility] Address [address] [place] [address] Phone Care Team Providers Care Global Supply Chain Director Name Role Phone Ariel Christiansen MD Unavailable [phone] Parmjit Vogel MD Unavailable [phone] Nicolas Greer MD Primary Care Provider [phone] Keny Saldaña APRN, ASSISTANT TEACHER Unavailable Cristian Dewitt MD Unavailable Ale Black RN Unavailable Unavailable Ale Spain RN Unavailable Unavailable Jerardo MCCANN MD, Courtney Unavailable [phone] Raghu Green MD Unavailable Warren Osborn MD Unavailable Ale Spain RN Unavailable Unavailable Chetan Do MD Unavailable Reason for Visit * Reason Comments Medication Refill Encounter Details Date Type Department Care Team (Late st Contact Info) Description 10/25/2022 [facility]ill [facility] [place] #2 [place] [address] Nicolas Greer MD #[address] [address] Medication Refill Social History Tobacco Use Types [...] Job Start Date Job End Date Retired [employer] Not on file Not on file Not on file documented as of this encounter Miscellaneous Notes * Telephone Encounter - Jenna Carson RN - 10/26/2022 8:40 AM CDT PRN medications require review from provider Per nursing clinical judgement, provider to review and approve the medication(s) order(s) if appropriate. Requested Prescriptions Pending Prescriptions Disp Refills albuterol 108 (90 Base) MCG/ACT Aerosol Solution [Pharmacy Med Name: ALBUTEROL HFA 90 MCG INHALER (LA] 8.5 g 1 Sig: INHALE TWO PUFFS BY MOUTH EVERY FOUR HOURS NEEDED FOR WHEEZING Short Acting Inhaled Beta-Agonists Protocol Passed - 10/25/2022 5:04 PM Passed - Visit with relevant provider in past 12 months or upcoming 90 days Recent Visits Date Type Provider Dept 09/21/22 Office Visit Nicolas Greer MD [facility] 07/18/22 Telemedicine Nicolas Greer MD [facility] 06/21/22 Office Visit Nicolas Greer MD [facility] 03/22/22 Office Visit Nicolas Greer MD [facility] 03/07/22 Telemedicine Nicolas Greer MD [facility] 02/13/22 Telemedicine [facility] MD [facility] 01/11/22 Telemedicine [facility] MD [facility] 01/09/22 Telemedicine Keny Saldaña APRN, MARY [facility] 12/19/21 Office Visit Nicolas Greer MD [facility] Showing recent visits within past 365 days and meeting all other requirements Future Appointments Date Type Provider Dept 12/21/22 Appointment Nicolas Greer MD [facility] [place] Showing future appointments within next 90 days and meeting all other requirements documented in this encounter Plan of Treatment Upcoming Encounters Date Type Department Care Team (Late st Contact Info) Description 04/24/2024 2:00 PM CDT Office Visit [facility] - Endocrinology - [place] #2 [place] [address] Chetan Do MD #[address] [phone] 08/14/2024 1:00 PM CDT Office Visit [facility] - Pulmonology & Sleep Medicine - [place] #2 [place] [address] Raghu Green MD #2 [place] [address] 09/17/2024 1:00 PM CDT Office Visit [facility] - Family Medicine - [place] #2 [place] [address] Nicolas Greer MD #[address] [address] documented as of this encounter Visit Diagnoses Not on filedocumented in this encounter Additional Health Concerns Assessment Noted Time PHQ-9 Depression Total Score: 0 09/22/19 23 1:48 PM CDT documented as of this encounter Care Teams Global Supply Chain Director Relationship Specialty Start Date End Date Nicolas Greer MD #[address] [address] PCP - General Family Medicine 09/08/21 Ariel Christiansen MD Consulting Physician Cardiovascular Disease - Cardiology 07/19/16 [place] [id number] [address] Engineering Leader Pulmonary Disease 06/18/20 Keny Saldaña APRN, ASSISTANT TEACHER #[address] [address] Nurse Practitioner Advanced Practice Nurse 09/08/21 Cristian Dewitt MD #[address] [address] Consulting Physician Cardiovascular Disease - Cardiology 10/06/21 02/07/24 Ale Spain, RN [place] Saddle Stitch Operator 03/15/22 02/12/23 Ale Spain, RN [place] Nurse Saddle Stitch Operator 03/15/22 02/13/23 Yamel Kurtz III, MD #2 [place] [address] Consulting Physician Urology 09/11/22 Raghu Green MD #2 [place] [address] Consulting Physician Pulmonary Disease 01/04/22 Warren Osborn MD #[address] [address] Consulting Physician Colon and Rectal Surgery 05/21/23 Ale Spain, RN [place] Nurse Saddle Stitch Operator 09/05/23 Chetan Do MD #[address] [address] Consulting Physician Endocrinology 01/23/24 documented as of this encounter
--- OUTSIDE RECORDS SUMMARY | 2024-03-24 13:02 | XMS_ITS | Encounter Summary ---
Author Organization [facility] Address [address] [place] [address] Phone Care Team Providers Care Staff Cytotechnologist Name Role Phone Ariel Christiansen MD Unavailable [phone] Parmjit Vogel MD Unavailable [phone] Nicolas Greer MD Primary Care Provider [phone] Keny Saldaña APRN, MARY Unavailable Cristian Dweitt MD Unavailable Kate Kurtz III, MD, Courtney Unavailable [phone] Raghu Green MD Unavailable Warren Osborn MD Unavailable Ale Spain RN Unavailable Unavailable Chetan Do MD Unavailable Reason for Visit * Reason Comments Medication Refill Encounter Details Date Type Department Care Team (Late st Contact Info) Description 07/05/2023 Refill [facility] [place] #2 [place] [address] Nicolas Greer MD #[address] [address] Medication Refill Social History Tobacco Use Types Packs/Day Years Used Date Smoking Tobacco: Former Cigarettes 0.5 50 1 957 - 2006 Smokeless Tobacco: Never Alcohol Use Standard Drinks/Week Comments No 0 (1 standard drink = 0.6 oz pur e alcohol) [facility] Utilities Answer Date Recorded In the [...] declined 04/04/2023 How often do you attend holiness or protestant serv ices? Patient declined 04/04/2023 Do you belong to any clubs o r organizations such as holiness groups, unions, fraternal or athletic groups, or [...] Total Score - Questions 1-9 0 09/05 [facility] - Occupational [...] place to sleep or slept in a custodial (including now)? Patient declined 04/04/2023 Education Answer [...] Job Start Date Job End Date Retired [employer] Not on file Not on file Not on file documented as of this encounter Miscellaneous Notes * Telephone Encounter - Nicolle Funk RN - 07/05/2023 1:18 PM CDT Medication(s) refilled and signed per [facility] Chronic Medication Refill Standing Order for Pediatricand Adult Patients. Requested Prescriptions Pending Prescriptions Disp Refills Glucose Blood (True Metrix Blood Glucose Test) Strip [Pharmacy Med Name: TRUE METRIX DME TEST STRIPS] 100 Strip 3 Sig: USE FOR TESTING TWICE A DAY DIRECTED Diabetic Supplies Protocol Passed - 07/05/2023 12:42 PM Passed - Visit with relevant provider in past 6 months Recent Visits Date Type Provider Dept 04/04/23 Office Visit Nicolas Greer MD [facility] Showing recent visits within past 182 days and meeting all other requirements Future Appointments Date Type Provider Dept 07/18/23 Appointment Nicolas Greer MD [facility] Showing future appointments within next 90 days and meeting all other requirements documented in this encounter Plan of Treatment Upcoming Encounters Date Type Department Care Team (Late st Contact Info) Description 04/24/2024 2:00 PM CDT Office Visit [facility] - Endocrinology - [place] #2 [place] [address] Chetan Do MD #[address] [address] 08/14/2024 1:00 PM CDT Office Visit [facility] - Pulmonology & Sleep Medicine - [place] #2 [place] [address] Raghu Green MD #2 [place] [address] 09/17/2024 1:00 PM CDT Office Visit [facility] - Family Medicine - [place] #2 [place] [address] Nicolas Greer MD #[address] [address] documented as of this encounter Visit Diagnoses Diagnosis Controlled type 2 diabetes mellitus without complication (HCC) documented in this encounter Additional Health Concerns Assessment Noted Time PHQ-9 Depression Total Score: 0 09/22/19 23 1:48 PM CDT documented as of this encounter Care Teams Staff Cytotechnologist Relationship Specialty Start Date End Date Nicolas Greer MD #[address] [address] PCP - General Family Medicine 09/08/21 Ariel Christiansen MD Consulting Physician Cardiovascular Disease - Cardiology 07/19/16 [place] [address] [address] Anaesthetic Technician Pulmonary Disease 06/18/20 Keny Saldaña APRN, INSURANCE LOSS ADJUSTER #[address] [address] Nurse Practitioner Advanced Practice Nurse 09/08/21 Cristian Dewitt MD #[address] [address] Consulting Physician Cardiovascular Disease - Cardiology 10/06/21 02/07/24 Yamel Kurtz III, MD #2 [place] [address] Consulting Physician Urology 09/11/22 Raghu Green MD #2 [place] [address] Consulting Physician Pulmonary Disease 01/04/22 Warren Osborn MD #[address] [address] Consulting Physician Colon and Rectal Surgery 05/21/23 Ale Spain, RN [place] Nurse Continuous Churn Buttermaker 09/05/23 Chetan Do MD #[address] [address] Consulting Physician Endocrinology 01/23/24 documented as of this encounter
--- OUTSIDE RECORDS SUMMARY | 2024-03-24 13:02 | XMS_ITS | Encounter Summary ---
Author Organization [facility] Address [address] [place] [address] Phone Care Team Providers Care Binding Printer Name Role Phone Nicolas Greer MD Primary Care Provider [phone] Ariel Christiansen MD Unavailable [phone] Parmjit Vogel MD Unavailable [phone] Nicolas Greer MD Primary Care Provider [phone] Keny Saldaña APRN, DIABETES EDUCATION COORDINATOR Unavailable Cristian Dewitt MD Unavailable Ale Black RN Unavailable Unavailable Ale Spain RN Unavailable Unavailable Jerardo MCCANN MD, Courtney Unavailable [phone] Raghu Green MD Unavailable Warren Osborn MD Unavailable Ale Spain RN Unavailable Unavailable Chetan Do MD Unavailable Reason for Visit * Reason Comments Medication Refill Encounter Details Date Type Department Care Team (Late st Contact Info) Description 08/02/2021 Refill [facility] #2 [place] [address] Nicolas Greer MD #2 [facility] [address] [place] [address] Medication Refill Social History Tobacco Use Types [...] Job Start Date Job End Date Retired [employer] Not on file Not on file Not on file COVID-19 Exposure Response Date Recorded In the last 10 days, have yo u been in contact with someone who was confirmed or suspected to have Coronavirus/COVID-19? No / Unsure 08/03/2021 11:31 AM CDT documented as of this encounter Miscellaneous Notes * Telephone Encounter - Nicolle Funk RN - 08/03/2021 1:27 PM CDT Medication failed the protocol, provider to review and approve the medication order if appropriate. Requested Prescriptions Pending Prescriptions Disp Refills levothyroxine (SYNTHROID) 137 MCG Tablet 90 Tablet 3 Sig: Take 1 Tablet by mouth daily. Thyroid Hormones Protocol Failed - 08/02/2021 2:24 PM Failed - Normal TSH in past 12 months TSH Date Value Ref Range Status 03/11/2020 0.524 0.270 - 4.200 mIU/L Final Passed - Visit with relevant provider in past 12 months or upcoming 90 days Recent Visits Date Type Provider Dept 07/21/21 Telemedicine Nicolas Greer MD [facility] 04/28/21 Telemedicine Nicolas Greer MD [facility] 12/20/20 Office Visit Nicolas Greer MD [facility] 09/22/20 Office Visit MohyNicolas molina MD [facility] Showing recent visits within past 365 days and meeting all other requirements Today's Visits Date Type Provider Dept 08/03/21 Telemedicine Nicolas Greer MD [facility] Showing today's visits and meeting all other requirements Future Appointments Date Type Provider Dept 10/27/21 Appointment Nicolas Greer MD [facility] Showing future appointments within next 90 days and meeting all other requirements documented in this encounter Plan of Treatment Upcoming Encounters Date Type Department Care Team (Late st Contact Info) Description 04/24/2024 2:00 PM CDT Office [facility] - Endocrinology - [place] #[address] [facility] [place] [address] Chetan Do MD #[address] [address] 08/14/2024 1:00 PM CDT Office Visit [facility] - Pulmonology & Sleep Medicine - [place] #[address] [facility] [place] [address] Raghu Green MD #2 [facility] [place] [place] [address] 09/17/2024 1:00 PM CDT Office Visit [facility] - Family Medicine - [place] #2 [facility] [place] [address] Nicolas Greer MD #[address] [place] [address] documented as of this encounter Visit Diagnoses Not on filedocumented in this encounter Additional Health Concerns Infection Onset Date Last Indicated Resolved Time COVID - 19 09/02/2021 09/02/2021 09/03/2021 2:05 PM CDT COVID - 19 12/24/2021 12/24/2021 12/26/2021 8:07 AM SEATER GRINDER Respiratory Rule Out - RPA 12/24/2021 12/24/2021 1 02/24/2021 4:41 PM SEATER GRINDER Influenza 12/24/2021 12/24/2021 12/31/2021 12:1 6 AM SEATER GRINDER Assessment Noted Time PHQ-9 Depression Total Score: 0 02/12/19 10:45 AM SEATER GRINDER documented as of this encounter Care Teams Binding Printer Relationship Specialty Start Date End Date Nicolas Greer MD #[address] [address] PCP - General Family Medicine 12/22/14 09/07/21 Nicolas Greer MD #[address] [address] PCP - General Family Medicine 09/08/21 Ariel Christiansen MD #[address] [address] Consulting Physician Cardiovascular Disease - Cardiology 07/19/16 [place] [address] [address] Building Services Engineer Pulmonary Disease 06/18/20 Keny Saldaña APRN, DIABETES EDUCATION COORDINATOR #[address] [address] Nurse Practitioner Advanced Practice Nurse 09/08/21 Cristian Dewitt MD #[address] [address] Consulting Physician Cardiovascular Disease - Cardiology 10/06/21 02/07/24 Ale Spain RN [place] Administrative Professional 03/15/22 02/12/23 Ale Spain RN [place] Nurse Administrative Professional 03/15/22 02/13/23 Yamel Kurtz III, MD #2 [place] [address] Consulting Physician Urology 09/11/22 Raghu Green MD #2 [place] [address] Consulting Physician Pulmonary Disease 01/04/22 Warren Osborn MD #[address] [address] Consulting Physician Colon and Rectal Surgery 05/21/23 Ale Spain RN [place] Nurse Administrative Professional 09/05/23 Chetan Do MD #[address] [address] Consulting Physician Endocrinology 01/23/24 documented as of this encounter
--- OUTSIDE RECORDS SUMMARY | 2024-03-24 13:02 | XMS_ITS | Encounter Summary ---
Author Organization [facility] Address [address] [place] [place] [address] Phone Care Team Providers Care Clothing Manager Name Role Phone Nicolas Greer MD Primary Care Provider [phone] Ariel Christiansen MD Unavailable [phone] Parmjit Vogel MD Unavailable [phone] Nicolas Greer MD Primary Care Provider [phone] Keny Saldaña APRN, STAGE ELECTRICIAN HELPER Unavailable Cristian Dewitt MD Unavailable Ale Black RN Unavailable Unavailable Ale Spain RN Unavailable Unavailable Jerardo MCCANN MD, Courtney Unavailable [phone] Raghu Green MD Unavailable Warren Osborn MD Unavailable Ale Spain RN Unavailable Unavailable Chetan Do MD Unavailable Reason for Visit * Reason Comments Medication Refill Encounter Details Date Type Department Care Team (Late st Contact Info) Description 11/10/2019 Refill [facility] #2 [place] [address] Keny Saldaña APRN, STAGE ELECTRICIAN HELPER #[address] [address] Medication Refill Social History Tobacco Use Types [...] Job Start Date Job End Date Retired [employer] Not on file Not on file Not on file COVID-19 Exposure Response Date Recorded In the last month, have you been in contact with someone who was confirmed or suspected to have Coronavirus / COVID-19? No / Unsure 10/14/2019 8:56 AM CDT documented as of this encounter Miscellaneous Notes * Telephone Encounter - Anna Fountain RN - 11/11/2019 4:20 PM CDT Medication failed the protocol, routing to provider to review and approve the medication order. Requested Prescriptions Pending Prescriptions Disp Refills benzonatate (TESSALON) 100 MG Capsule [Pharmacy Med Name: Benzonatate 100 MG Oral Capsule] 30 Cap 0 Sig: Take 1 capsule by mouth three times daily as needed for cough Not Delegated - Ear, Nose, and Throat: Antitussives/Expectorants Failed - 11/10/2019 12:56 PM Failed - This refill cannot be delegated Passed - Valid encounter within last 12 months Past Office Visits Recent Outpatient Visits 4 weeks ago Hyperlipidemia, unspecified hyperlipidemia type [facility] - [facility] Medicine - Nicolas Waters MD 4 months ago Pulmonary emphysema, unspecified emphysema type (HCC) [facility] - Family Medicine - Keny Crowder APN, STAGE ELECTRICIAN HELPER 5 months ago Ptosis of both eyelids [facility] - Family Medicine - eKny Crowder APN, STAGE ELECTRICIAN HELPER 9 months ago Hypothyroidism, unspecified type [facility] - Nicolas Waters MD 1 year ago Non-insulin dependent type 2 diabetes mellitus (HCC) [facility] - Nicolas Waters MD Upcoming Appointments LIQUOR GALLERY OPERATOR - Recent and Past Visits Recent Visits Date Type Provider Dept 10/14/19 Office Visit Nicolas Greer MD [facility] 07/14/19 Office Visit Keny Saldaña APN, STAGE ELECTRICIAN HELPER [facility] 05/22/19 Telemedicine Keny Saldaña APN, STAGE ELECTRICIAN HELPER [facility] [place] 02/12/19 Office Visit Nicolas Greer MD [facility] 11/05/18 Office Visit Nicolas Greer MD [facility] Showing recent visits within past 460 days [...] Description 04/24/2024 2:00 PM CDT Office Visit [facility] - Endocrinology - [place] [address] [place] [address] Chetan Do MD #[address] [address] 08/14/2024 1:00 PM CDT Office Visit [facility] - Pulmonology & Sleep Medicine - [place] #2 [place] [address] Raghu Green MD #2 [place] [address] 09/17/2024 1:00 PM CDT Office Visit [facility] - [facility] [address] [place] [address] Nicolas Greer MD #[address] [address] documented as of this encounter Visit Diagnoses Diagnosis Pulmonary emphysema, unspecified emphysema type (HCC) documented in this encounter Additional Health Concerns Infection Onset Date Last Indicated Resolved Time COVID - 19 03/11/2020 03/11/2020 03/31/2020 12:1 8 AM COFOUNDER COVID - 19 09/02/2021 09/02/2021 09/03/2021 2:05 PM CDT COVID - 19 12/24/2021 12/24/2021 12/26/2021 8:07 AM COFOUNDER Respiratory Rule Out - RPA 12/24/2021 12/24/2021 1 02/24/2021 4:41 PM COFOUNDER Influenza 12/24/2021 12/24/2021 12/31/2021 12:1 6 AM COFOUNDER Assessment Noted Time PHQ-9 Depression Total Score: 0 02/12/19 10:45 AM COFOUNDER documented as of this encounter Care Teams Clothing Manager Relationship Specialty Start Date End Date Nicolas Greer MD #[address] [address] PCP - General Family Medicine 12/22/14 09/07/21 Nicolas Greer MD #[address] [address] PCP - General Family Medicine 09/08/21 Ariel Christiansen MD #[address] [address] Consulting Physician Cardiovascular Disease - Cardiology 07/19/16 [place] [address] [facility] [address] [place] [address] Dye Lab Technician Pulmonary Disease 06/18/20 Keny Saldaña APRN, STAGE ELECTRICIAN HELPER #[address] [address] Nurse Practitioner Advanced Practice Nurse 09/08/21 Cristian Dewitt MD #[address] [address] Consulting Physician Cardiovascular Disease - Cardiology 10/06/21 02/07/24 Ale Spain, RN [place] Staking Press Operator 03/15/22 02/12/23 Ale Spain, RN [place] Nurse Staking Press Operator 03/15/22 02/13/23 Yamel Kurtz III, MD #2 [place] [address] Consulting Physician Urology 09/11/22 Raghu Green MD #2 [place] [phone] Consulting Physician Pulmonary Disease 01/04/22 Warren Osborn MD #[address] [address] Consulting Physician Colon and Rectal Surgery 05/21/23 Ale Spain, RN [place] Nurse Staking Press Operator 09/05/23 Chetan Do MD #[address] [phone] Consulting Physician Endocrinology 01/23/24 documented as of this encounter
--- OUTSIDE RECORDS SUMMARY | 2024-03-24 13:02 | XMS_ITS | Encounter Summary ---
Author Organization [facility] Address [address] [place] [address] Phone Care Team Providers Care Vault Cashier Name Role Phone Ariel Christiansen MD Unavailable [phone] Parmjit Vogel MD Unavailable [phone] Nicolas Greer MD Primary Care Provider [phone] Keny Saldaña APRN, STUNTMAN Unavailable Cristian Dewitt MD Unavailable Kate Kurtz III, MD, Courtney Unavailable [phone] Raghu Green MD Unavailable Warren Osborn MD Unavailable Ale Spain RN Unavailable Unavailable Chetan Do MD Unavailable Reason for Visit * Reason Comments Medication Refill Encounter Details Date Type Department Care Team (Late Contact Info) Description 05/07/2023 Refill [facility] #2 [place] [address] Yamel Kurtz III, MD #2 [place] [address] Medication Refill Social History Tobacco Use Types Packs/Day Years Used Date Smoking Tobacco: Former Cigarettes 0.5 50 Smokeless Tobacco: Never Alcohol Use Standard Drinks/Week Comments No 0 (1 standard drink = 0.6 oz pur e alcohol) [facility] Utilities Answer Date Recorded In the [...] declined 04/04/2023 How often do you attend baptist or voodoo serv ices? Patient declined 04/04/2023 Do you belong to any clubs o r organizations such as baptist groups, unions, fraternal or athletic groups, or [...] Score - Questions 1-9 0 09/05 [facility] [place] of Occupat ional Health - Occupational Stress [...] place to sleep or slept in a prison (including now)? Patient declined 04/04/2023 Education Answer [...] Job Start Date Job End Date Retired [employer] Not on file Not on file Not on file documented as of this encounter Plan of Treatment Upcoming Encounters Date Type Department Care Team (Late st Contact Info) Description 04/24/2024 2:00 PM CDT Office Visit [facility] - Endocrinology - [place] [address] [place] [address] Chetan Do MD [address] [phone] 08/14/2024 1:00 PM CDT Office Visit [facility] - Pulmonology & Sleep Medicine [facility] #2 [place] [address] Raghu Green MD #2 [place] [address] 09/17/2024 1:00 PM CDT Office Visit [facility] [place] #2 [place] [address] Nicolas Greer MD #[address] [address] documented as of this encounter Visit Diagnoses Diagnosis Mixed stress and urge urinary incontinence Mixed incontinence urge and stress (male)(female) documented in this encounter Additional Health Concerns Assessment Noted Time PHQ-9 Depression Total Score: 0 09/22/19 23 1:48 PM CDT documented as of this encounter Care Teams Vault Cashier Relationship Specialty Start Date End Date Nicolas Greer MD #[address] [address] PCP - General Family Medicine 09/08/21 Ariel Christiansen MD Consulting Physician Cardiovascular Disease - Cardiology 07/19/16 [place] [address] [address] Ballpoint Pen Cartridge Tester Pulmonary Disease 06/18/20 Keny Saldaña, PHOTOGRAPH DEVELOPER, STUNTMAN #[address] [address] Nurse Practitioner Advanced Practice Nurse 09/08/21 Cristian Dewitt MD #[address] [address] Consulting Physician Cardiovascular Disease - Cardiology 10/06/21 02/07/24 Yamel Kurtz III, MD #2 [place] [address] Consulting Physician Urology 09/11/22 Raghu Green MD #2 [place] [address] Consulting Physician Pulmonary Disease 01/04/22 Warren Osborn MD #[address] [address] Consulting Physician Colon and Rectal Surgery 05/21/23 Ale Spain, [place] Nurse Fork Repairer 09/05/23 Chetan Do MD #[address] [phone] Consulting Physician Endocrinology 01/23/24 documented as of this encounter
--- OUTSIDE RECORDS SUMMARY | 2024-03-24 13:02 | XMS_ITS | Encounter Summary ---
Author Organization [facility] Address [address] [place] [address] Phone Care Team Providers Care Cardiac Exercise Specialist Name Role Phone Nicolas Greer MD Primary Care Provider [phone] Ariel Christiansen MD Unavailable [phone] Parmjit Vogel MD Unavailable [phone] Nicolas Greer MD Primary Care Provider [phone] Keny Saldaña APRN, GRAVITY METER OBSERVER Unavailable Cristian Dewitt MD Unavailable Ale Black RN Unavailable Unavailable Ale Spain RN Unavailable Unavailable Jerardo MCCANN MD, Courtney Unavailable [phone] Raghu Green MD Unavailable Warren Osborn MD Unavailable Ale Spain RN Unavailable Unavailable Chetan Do MD Unavailable Reason for Visit * Reason Comments Medication Refill Encounter Details Date Type Department Care Team (Late st Contact Info) Description 10/27/2020 Refill [facility] #2 [place] [address] Nicolas Greer MD #2 [facility] [address] [place] [address] Medication Refill Social History Tobacco Use Types [...] Job Start Date Job End Date Retired [employer] Not on file Not on file Not on file documented as of this encounter Miscellaneous Notes * Telephone Encounter - Keny Saldaña APN, CNP - 10/28/2020 8:15 AM CDT OK going to refuse these then. No need to be on Symbicort if on Breztri and Tessalon is supposed nano short term. * Telephone Encounter - Nicolle Funk RN - 10/28/2020 8:08 AM CDT She is taking Breztri prescribed by finish repairer. * Telephone Encounter - Keny Saldaña APN, CNP - 10/27/2020 2:18 PM CDT The patient also has Breztri on her list. Is she taking that or Symbicort? Should not be on both. * Telephone Encounter - Nicolle Funk RN - 10/27/2020 1:57 PM CDT Medication failed the protocol, provider to review and approve the medication order if appropriate. Requested Prescriptions Pending Prescriptions Disp Refills benzonatate (TESSALON) 100 MG Capsule [Pharmacy Med Name: Benzonatate 100 MG Oral Capsule] 30 Capsule 0 Sig: Take 1 capsule by mouth three times daily as needed for cough healthfinch Not Delegated - Ear, Nose, and Throat: Antitussives/Expectorants Failed - 10/27/2020 10:29 AM Failed - This refill cannot be delegated Passed - Valid encounter within last 12 months Past Office Visits Recent Outpatient Visits 1 month ago Blepharitis of left lower eyelid, unspecified type [facility] Nicolas Waters MD 4 months ago COPD exacerbation (HCC) [facility] Nicolas Waters MD 4 months ago SOB (shortness of breath) [facility] Nicolas Waters MD 7 months ago Chronic obstructive pulmonary disease, unspecified COPD type (HCC) [facility] Nicolas Waters MD 1 year ago Hyperlipidemia, unspecified hyperlipidemia type [facility] Nicolas Waters MD Upcoming Appointments Future Appointments In 1 month Nicolas Greer MD [facility] - Recent and Past Visits Recent Visits Date Type Provider Dept 09/22/20 Office Visit Nicolas Greer MD [facility] 06/21/20 Office Visit Nicolas Greer MD [facility] 06/08/20 Office Visit Nicolas Greer MD [facility] 03/11/20 Office Visit Nicolas Greer MD [facility] 10/14/19 Office Visit Nicolas Greer MD [facility] Showing recent visits within past 460 days with a meds authorizing provider and meeting all other requirements Future Appointments Date Type Provider Dept 12/23/20 Appointment Nicolas Greer MD [facility] Showing future appointments within next 90 days with a meds authorizing provider and meeting all other requirements Symbicort 160-4.5 MCG/ACT Aerosol [Pharmacy Med Name: Symbicort 160-4.5 MCG/ACT Inhalation Aerosol]11 g 2 Sig: Inhale 2 puffs by mouth twice daily Inhaled Combinations Protocol Passed - 10/27/2020 10:29 AM Passed - Visit with relevant provider in past 12 months or upcoming 90 days Recent Visits Date Type Provider Dept 09/22/20 Office Visit Nicolas Greer MD [facility] 06/21/20 Office Visit Nicolas Greer MD [facility] 06/08/20 Office Visit Nicolas Greer MD [facility] 03/11/20 Office Visit Nicolas Greer MD [facility] Showing recent visits within past 365 days and meeting all other requirements Future Appointments Date Type Provider Dept 12/23/20 Appointment Nicolas Greer MD [facility] Showing future appointments within next 90 days and meeting all other requirements Passed - Active short-acting beta agonist prescription documented in this encounter Plan of Treatment Upcoming Encounters Date Type Department Care Team (Late st Contact Info) Description 04/24/2024 2:00 PM CDT Office Visit [facility] - Endocrinology - [place] #[address] [place] [address] Chetan Do MD #[address] [address] 08/14/2024 1:00 PM CDT Office Visit [facility] - Pulmonology & Sleep Medicine - [place] #[address] [place] [address] Raghu Green MD #2 [place] [address] 09/17/2024 1:00 PM CDT Office Visit [facility] - [facility] #2 [place] [address] Nicolas Greer MD #[address] [address] documented as of this encounter Visit Diagnoses Diagnosis Pulmonary emphysema, unspecified emphysema type (HCC) documented in this encounter Additional Health Concerns Infection Onset Date Last Indicated Resolved Time COVID - 19 09/02/2021 09/02/2021 09/03/2021 2:05 PM CDT COVID - 19 12/24/2021 12/24/2021 12/26/2021 8:07 AM SOLAR WATER HEATER INSTALLER Respiratory Rule Out - RPA 12/24/2021 12/24/2021 1 02/24/2021 4:41 PM SOLAR WATER HEATER INSTALLER Influenza 12/24/2021 12/24/2021 12/31/2021 12:1 6 AM SOLAR WATER HEATER INSTALLER Assessment Noted Time PHQ-9 Depression Total Score: 0 02/12/19 10:45 AM SOLAR WATER HEATER INSTALLER documented as of this encounter Care Teams Cardiac Exercise Specialist Relationship Specialty Start Date End Date Nicolas Greer MD #[address] [address] PCP - General Family Medicine 12/22/14 09/07/21 Nicolas Greer MD #[address] [address] PCP - General Family Medicine 09/08/21 Ariel Christiansen MD #[address] [address] Consulting Physician Cardiovascular Disease - Cardiology 07/19/16 [place] [address] [facility] [address] [place] [address] Room Attendants Pulmonary Disease 06/18/20 Keny Saldaña APRN, GRAVITY METER OBSERVER #[address] [address] Nurse Practitioner Advanced Practice Nurse 09/08/21 Cristian Dewitt MD #[address] [address] Consulting Physician Cardiovascular Disease - Cardiology 10/06/21 02/07/24 Ale Spain, RN [place] Tire Man 03/15/22 02/12/23 Ale Spain, RN [place] Nurse Tire Man 03/15/22 02/13/23 Yamel Kurtz III, MD #2 [place] [address] Consulting Physician Urology 09/11/22 Raghu Green MD #2 [place] [address] Consulting Physician Pulmonary Disease 01/04/22 Warren Osborn MD #[address] [address] Consulting Physician Colon and Rectal Surgery 05/21/23 Ale Spain, RN [place] Nurse Tire Man 09/05/23 Chetan Do MD #[address] [phone] Consulting Physician Endocrinology 01/23/24 documented as of this encounter
--- OUTSIDE RECORDS SUMMARY | 2024-03-24 13:02 | XMS_ITS | Encounter Summary ---
Author Organization [facility] Address [address] [place] [address] Phone Care Team Providers Care Deposit Refund Clerk Name Role Phone Ariel Christiansen MD Unavailable [phone] Parmjit Vogel MD Unavailable [phone] Nicolas Greer MD Primary Care Provider [phone] Keny Saldaña APRN, MARY Unavailable Cristian Dewitt MD Unavailable Kate Kurtz III, MD, Courtney Unavailable [phone] Raghu Green MD Unavailable Warren Osborn MD Unavailable Ale Spain RN Unavailable Unavailable Chetan Do MD Unavailable Reason for Visit * Reason Comments Medication Refill Encounter Details Date Type Department Care Team (Late st Contact Info) Description 07/16/2023 Refill [facility] #2 [place] [address] Nicolas Greer MD #[address] [address] Medication Refill Social History Tobacco Use Types Packs/Day Years Used Date Smoking Tobacco: Former Cigarettes 0.5 50 1 957 - 2007 Smokeless Tobacco: Never Alcohol Use Standard Drinks/Week Comments No 0 (1 standard drink = 0.6 oz pur e alcohol) [facility] Utilities Answer Date Recorded In the past 12 months has e electric, gas, oil, or water company threatened to shut off services in your home? Patient declined 04/04/2023 Social Connection and Isolation Panel [NHANES] A nswer Date Recorded In a typical week, how many times do you talk on the phone with family, friends, or neighbors? Patient declined 07/17/2023 How often do you get togethe r with friends or relatives? Patient declined 07/17/2023 How often do you attend advent or denominational serv ices? Patient declined 07/17/2023 Do you belong to any clubs o r organizations such as advent groups, unions, fraternal or athletic groups, or school groups? Patient declined 07/17/2023 How often do you attend meet ings of the clubs or organizations you belong to? Patient declined 07/17/2023 Are you , , di vorced, , never , or living with a partner? 07/17/2023 AUDIT-C Answer Date Recorded Q1: How often do you have a drink containing alcohol? Patient declined 07/17/2023 Q2: How many drinks containi ng alcohol do you have on a typical day when you are drinking? Patient does not drink Q3: How often do you have si x or more drinks on one occasion? Patient declined 07/17/2023 Overall Financial Resource Strain (CARDIA) Answe r Date Recorded How hard is it for you to pa y for the very basics like food, housing, medical care, and heating? Patient declined 04/04/2023 PHQ-2 Answer Date Recorded Total Score - Questions 1-9 0 09/05 [facility] - Occupational Stress Questionnaire Answer Date Recorded Do you feel stress - tense, restless, nervous, or anxious, or unable to sleep at night because your mind is troubled all the time - these days? Patient declined 07/17/2023 Exercise Vital Sign Answer Date Recorde d On average, how many days pe r week do you engage in moderate to strenuous exercise (like a brisk walk)? Patient declined On average, how many minutes do you engage in exercise at this level? Patient declined 07/17/2023 Hunger Vital Sign Answer Date Recorded Within the past 12 months, y ou worried that your food would run out before you got the money to buy more. Patient declined Within the past 12 months, t he food you bought just didn't last and you didn't have money to get more. Patient declined 12/2023 PRAPARE - Transportation Answer Date Re corded In the past 12 months, has l ack of transportation kept you from medical appointments or from getting medications? No 07/06 In the past 12 months, has l ack of transportation kept you from meetings, work, or from getting things needed for daily living? No 07/17/2023 Housing Stability Vital Sign Answer Yuri e [...] place to sleep or slept in a penitentiary (including now)? Patient declined 04/04/2023 Housing Stability Vital Sign Answer Yuri e Recorded In the last 12 months, was t here a time when you were not able to pay the mortgage or rent on time? No 07/17/2023 Number of Times Moved in the Last Year Not on fi le 07/17/2023 At any time in the past 12 [facility], were you homeless or living in a penitentiary (including now)? No 07/17/2023 Education Answer Date Recorded What is the [...] Job Start Date Job End Date Retired [employer] To Be Not on file Not on file Not on file documented as of this encounter Functional Status * Audit-C Score Answer Date of Assessment Author -1 07/17/2023 1:50 PM CDT [employer], System Background * Within the last year, have you been humiliated or emotionally abused in other ways by your partner or ex-partner? Answer Date of Assessment Author No 07/17/2023 1:50 PM CDT [employer], System Background * Within the last year, have you been afraid of your partner or ex-partner? Answer Date of Assessment Author No 07/17/2023 1:50 PM CDT [employer], System Background * Within the last year, have you been raped or forced to have any kind of sexual activity by your partner or ex-partner? Answer Date of Assessment Author No 07/17/2023 1:50 PM CDT [employer], System Background * Within the last year, have you been kicked, hit, slapped, or otherwise physically hurt by your partner or ex-partner? Answer Date of Assessment Author No 07/17/2023 1:50 PM CDT [employer], System Background * Q1: How often do you have a drink containing alcohol? Answer Date of Assessment Author Patient declined 07/17/2023 1:50 PM CDT [employer], System Background * Q2: How many drinks containing alcohol do you have on a typical day when you are drinking? Answer Date of Assessment Author Patient does not drink 07/17/2023 1:50 PM CDT [employer] chart, System Background * Q3: How often do you have six or more drinks on one occasion? Answer Date of Assessment Author Patient declined 07/17/2023 1:50 PM CDT [employer], System Background * Question Answer Date of Assessment Author Little interest or pleasure in doing things Several days 07/18/2023 1:52 PM CDT Janette Blas MA Feeling down, depressed, or hopeless Several days 07/18/2023 1:52 PM CDT Janette Blas MA * Over the past 2 weeks, how often have you been bothered by any of the following problems? Question Answer Date of Assessment Author Patient Health Questionnaire -2 Score 2 07/18/2023 1:52 PM CAYDENJanette So MA documented as of this encounter Miscellaneous Notes * Telephone Encounter - Nicolle Funk RN - 07/16/2023 11:23 AM CDT Medication(s) refilled and signed per [facility] Chronic Medication Refill Standing Order for Pediatricand Adult Patients. Requested Prescriptions Pending Prescriptions Disp Refills True Metrix Blood Glucose Test Strip [Pharmacy Med Name: TRUE METRIX DME TEST STRIPS] 100 Strip 3 Sig: USE FOR TESTING TWICE A DAY DIRECTED Diabetic Supplies Protocol Passed - 07/16/2023 8:53 AM Passed - Visit with relevant provider in past 6 months Recent Visits Date Type Provider Dept 04/04/23 Office Visit Nicolas [facility] Showing recent visits within past 182 days and meeting all other requirements Future Appointments Date Type Provider Dept 07/18/23 Appointment Nicolas Greer MD [facility] Showing future appointments within next 90 days and meeting all other requirements documented in this encounter Plan of Treatment Upcoming Encounters Date Type Department Care Team (Late st Contact Info) Description 04/24/2024 2:00 PM CDT Office Visit [facility] Medical [facility] - Endocrinology - [place] #2 [place] [address] Chetan Do MD #[address] [address] 08/14/2024 1:00 PM CDT Office Visit [facility] - Pulmonology & Sleep Medicine - [place] #2 [place] [id number] Raghu Green MD #2 [place] [address] 09/17/2024 1:00 PM CDT Office Visit [facility] Medical [facility] - Family Medicine - [place] #2 [place] [address] Nicolas Greer MD #[address] [address] documented as of this encounter Visit Diagnoses Diagnosis Controlled type 2 diabetes mellitus without complication (HCC) documented in this encounter Additional Health Concerns Assessment Noted Time PHQ-9 Depression Total Score: 0 09/22/19 23 1:48 PM CDT documented as of this encounter Care Teams Deposit Refund Clerk Relationship Specialty Start Date End Date Nicolas Greer MD #[address] [address] PCP - General Family Medicine 09/08/21 Ariel Christiansen MD Consulting Physician Cardiovascular Disease - Cardiology 07/19/16 [place] [id number] [address] Grain Cleaner Pulmonary Disease 06/18/20 Keny Saldaña APRN, CONCILIATOR #[address] [address] Nurse Practitioner Advanced Practice Nurse 09/08/21 Cristian Dewitt MD #[address] [address] Consulting Physician Cardiovascular Disease - Cardiology 10/06/21 02/07/24 Yamel Kurtz III, MD #2 [place] [address] Consulting Physician Urology 09/11/22 Raghu Green MD #2 [facility] [place] [address] Consulting Physician Pulmonary Disease 01/04/22 Warren Osborn MD #[address] [address] Consulting Physician Colon and Rectal Surgery 05/21/23 Ale Spain RN [place] Nurse Sponge Press Operator 09/05/23 Chetan oD MD #[address] [address] Consulting Physician Endocrinology 01/23/24 documented as of this encounter
--- OUTSIDE RECORDS SUMMARY | 2024-03-24 13:02 | XMS_ITS | Encounter Summary ---
Author Organization [facility] Address [address] [place] [address] Phone Care Team Providers Care Piece Dyeing Machine Tender Name Role Phone Nicolas Greer MD Primary Care Provider [phone] Ariel Christiansen MD Unavailable [phone] Parmjit Vogel MD Unavailable [phone] Nicolas Greer MD Primary Care Provider [phone] Keny Saldaña APRN, KIDS ACTIVITIES COACH Unavailable Cristian Dewitt MD Unavailable Ale Black RN Unavailable Unavailable Ale Spain RN Unavailable Unavailable Jerardo MCCANN MD, Courtney Unavailable [phone] Raghu Green MD Unavailable Warren Osborn MD Unavailable Ale Spain RN Unavailable Unavailable Chetan Do MD Unavailable Reason for Visit * Reason Comments Medication Refill Encounter Details Date Type Department Care Team (Late st Contact Info) Description 04/15/2020 Refill [facility] #2 [place] [address] Nicolas Greer MD #2 [facility] [address] [place] [address] Medication Refill Social History Tobacco Use Types [...] Job Start Date Job End Date Retired [employer] Not on file Not on file Not on file documented as of this encounter Miscellaneous Notes * Telephone Encounter - Nicolle Funk RN - 04/15/2020 2:54 PM CST Medication failed the protocol, provider to review and approve the medication order if appropriate. Requested Prescriptions Pending Prescriptions Disp Refills benzonatate (TESSALON) 100 MG Capsule [Pharmacy Med Name: Benzonatate 100 MG Oral Capsule] 30 Capsule 0 Sig: Take 1 capsule by mouth three times daily as needed for cough Not Delegated - Ear, Nose, and Throat: Antitussives/Expectorants Failed - 04/15/2020 12:07 PM Failed - This refill cannot be delegated Passed - Valid encounter within last 12 months Past Office Visits Recent Outpatient Visits 1 month ago Chronic obstructive pulmonary disease, unspecified COPD type (HCC) [facility] - [facility] Medicine - Nicolas Waters MD 6 months ago Hyperlipidemia, unspecified hyperlipidemia type [facility] - Nicolas Waters MD 9 months ago Pulmonary emphysema, unspecified emphysema type (HCC) [facility] - Keny Crowder APN, KIDS ACTIVITIES COACH 10 months ago Ptosis of both eyelids [facility] - Keny Crowder APN, KIDS ACTIVITIES COACH 1 year ago Hypothyroidism, unspecified type [facility] Nicolas Greer MD Upcoming Appointments Future Appointments In 1 month Nicolas Greer MD [facility] PSYCHOLOGY ASSISTANT - Recent and Past Visits Recent Visits Date Type Provider Dept 03/11/20 Office Visit Nicolas Greer MD [facility] 10/14/19 Office Visit Nicolas Greer MD [facility] 07/14/19 Office Visit Keny Saldaña APN, MARY [facility] 05/22/19 Telemedicine Keny Saldaña APN, MARY [facility] 02/12/19 Office Visit Nicolas Greer MD [facility] Showing recent visits within past 460 days with a meds authorizing provider and meeting all other requirements Future Appointments Date Type Provider Dept 06/08/20 Appointment Nicolas Greer MD [facility] Showing future appointments within next 90 days with a meds authorizing provider and meeting all other requirements ECTIVE OFFICER documented in this encounter Plan of Treatment Upcoming Encounters Date Type Department Care Team (Late st Contact Info) Description 04/24/2024 2:00 PM CDT Office Visit [facility] Medical [facility] - Endocrinology - [place] #2 [place] [address] Chetan Do MD #[address] [address] 08/14/2024 1:00 PM CDT Office Visit [facility] Medical [facility] - Pulmonology & Sleep Medicine [facility] #2 [place] [address] Raghu Green MD #2 [place] [address] 09/17/2024 1:00 PM CDT Office Visit [facility] #2 [place] [address] Nicolas Greer MD #[address] [address] documented as of this encounter Visit Diagnoses Diagnosis Pulmonary emphysema, unspecified emphysema type (HCC) documented in this encounter Additional Health Concerns Infection Onset Date Last Indicated Resolved Time COVID - 19 09/02/2021 09/02/2021 09/03/2021 2:05 PM CDT COVID - 19 12/24/2021 12/24/2021 12/26/2021 8:07 AM PROTECTIVE OFFICER Respiratory Rule Out - RPA 12/24/2021 12/24/2021 1 02/24/2021 4:41 PM PROTECTIVE OFFICER Influenza 12/24/2021 12/24/2021 12/31/2021 12:1 6 AM PROTECTIVE OFFICER Assessment Noted Time PHQ-9 Depression Total Score: 0 02/12/19 20 10:45 AM PROTECTIVE OFFICER documented as of this encounter Care Teams Piece Dyeing Machine Tender Relationship Specialty Start Date End Date Nicolas Greer MD #[address] [address] PCP - General Family Medicine 12/22/14 09/07/21 Nicolas Greer MD #[address] [address] PCP - General Family Medicine 09/08/21 Ariel Christiansen MD #[address] [address] Consulting Physician Cardiovascular Disease - Cardiology 07/19/16 [place] [id number] [address] Adult Crossing Guard Pulmonary Disease 06/18/20 Keny Saldaña, AIRCRAFT MAINTENANCE SUPERVISOR, KIDS ACTIVITIES COACH #[address] [address] Nurse Practitioner Advanced Practice Nurse 09/08/21 Cristian Dewitt MD #[address] [address] Consulting Physician Cardiovascular Disease - Cardiology 10/06/21 02/07/24 Ale Spain, RN [place] Precision Filer Hand 03/15/22 02/12/23 Ale Spain, RN [place] Nurse Precision Filer Hand 03/15/22 02/13/23 Yamel Kurtz III, MD #2 [place] [address] Consulting Physician Urology 09/11/22 Raghu Green MD #2 [place] [address] Consulting Physician Pulmonary Disease 01/04/22 Warren Osborn MD #[address] [address] Consulting Physician Colon and Rectal Surgery 05/21/23 Ale Spain, RN [place] Nurse Precision Filer Hand 09/05/23 Chetan Do MD #[address] [phone] Consulting Physician Endocrinology 01/23/24 documented as of this encounter
--- OUTSIDE RECORDS SUMMARY | 2024-03-24 13:02 | XMS_ITS | Encounter Summary ---
Author Organization [facility] Address [address] [place] [place] [address] Phone Care Team Providers Care Double Surface Operator Name Role Phone Nicolas Greer MD Primary Care Provider [phone] Ariel Christiansen MD Unavailable [phone] Parmjit Vogel MD Unavailable [phone] Nicolas Greer MD Primary Care Provider [phone] Keny Saldaña APRN, ENGINE REPAIRER PRODUCTION Unavailable Cristian Dewitt MD Unavailable Ale Black RN Unavailable Unavailable Ale Spain RN Unavailable Unavailable Jerardo MCCANN MD, Courtney Unavailable [phone] Raghu Green MD Unavailable Warren Osborn MD Unavailable Ale Spain RN Unavailable Unavailable Chetan Do MD Unavailable Reason for Visit * Reason Onset Date Comments Medication Refill Medication Refill 09/13/2020 Encounter Details Date Type Department Care Team (Late st Contact Info) Description 09/10/2020 Refill [facility] - Family [facility] [address] [place] [address] Nicolas Greer MD [address] [address] Medication Refill; Medication Refill Social History Tobacco Use Types [...] Job Start Date Job End Date Retired [employer] Not on file Not on file Not on file documented as of this encounter Miscellaneous Notes * Telephone Encounter - Nicolle Funk RN - 09/13/2020 8:41 AM CDT sertraline (ZOLOFT) 50 MG Tablet 90 Tablet 1 09/10/2020 Sig: Take 1 tablet by mouth once daily Sent to pharmacy as: Sertraline HCl 50 MG Oral Tablet (ZOLOFT) Class: E Prescribe E-Prescribing Status: Transmission to pharmacy failed (09/10/2020 ??9:26 PM CDT) Can you please resend? * Telephone Encounter - Nicolle Funk RN - 09/10/2020 3:57 PM CDT Medication failed the protocol, provider to review and approve the medication order if appropriate. Requested Prescriptions Pending Prescriptions Disp Refills sertraline (ZOLOFT) 50 MG Tablet [Pharmacy Med Name: Sertraline HCl 50 MG Oral Tablet] 90 Tablet 1 Sig: Take 1 tablet by mouth once daily SSRI (6 Month Refill Only) Protocol Failed - 09/10/2020 10:47 AM Failed - Has an encounter in the past 6 months with a depression, anxiety, adjustment disorder, OCD, or PTSD visit diagnosis Passed - Visit with relevant provider in past 6 months or upcoming 90 days Recent Visits Date Type Provider Dept 06/21/20 Office Visit Nicolas Greer MD [facility] 06/08/20 Office Visit Nicolas Greer MD [facility] Showing recent visits within past 182 days and meeting all other requirements Future Appointments Date Type Provider Dept 09/22/20 Appointment Nicolas Greer MD [facility] Showing future appointments within next 90 days and meeting all other requirements Passed - Patient has established therapy with SSRI for at least 6 months lovastatin (MEVACOR) 40 MG Tablet [Pharmacy Med Name: Lovastatin 40 MG Oral Tablet] 45 Tablet 1 Sig: Take 1/2 (one-half) tablet by mouth once daily Hmg CoA Reductase Inhibitors Protocol Passed - 09/10/2020 10:47 AM Passed - Visit with relevant provider in past 12 months or upcoming 90 days Recent Visits Date Type Provider Dept 06/21/20 Office Visit Nicolas Greer MD [facility] 06/08/20 Office Visit Nicolas Greer MD [facility] 03/11/20 Office Visit Nicolas Greer MD [facility] 10/14/19 Office Visit Nicolas Greer MD [facility] Showing recent visits within past 365 days and meeting all other requirements Future Appointments Date Type Provider Dept 09/22/20 Appointment Nicolas Greer MD [facility] Showing [...] Status 03/11/2020 131.7 (H) <130 mg/dL Final benzonatate (TESSALON) 100 MG Capsule [Pharmacy Med Name: Benzonatate 100 MG Oral Capsule] 30 Capsule 0 Sig: Take 1 capsule by mouth three times daily as needed for cough healthfinch Not Delegated - Ear, Nose, and Throat: Antitussives/Expectorants Failed - 09/10/2020 10:47 AM Failed - This refill cannot be delegated Passed - Valid encounter within last 12 months Past Office Visits Recent Outpatient Visits 2 months ago COPD exacerbation (HCC) [facility] Waters MD 3 months ago SOB (shortness of breath) [facility] Nicolas Waters MD 6 months ago Chronic obstructive pulmonary disease, unspecified COPD type (HCC) [facility] Nicolas Waters MD 11 months ago Hyperlipidemia, unspecified hyperlipidemia type [facility] Nicolas Waters MD 1 year ago Pulmonary emphysema, unspecified emphysema type (HCC) [facility] Keny Crowder APN, MARY Upcoming Appointments Future Appointments In 1 week Nicolas Greer MD [facility] 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 Recent Visits Date Type Provider Dept 06/21/20 Office Visit Nicolas Greer MD [facility] 06/08/20 Office Visit Nicolas Greer MD [facility] 03/11/20 Office Visit Nicolas Greer MD [facility] 10/14/19 Office Visit Nicolas Greer MD [facility] 07/14/19 Office Visit Keny Saldaña APN, MARY [facility] Showing recent visits within past 460 days with a meds authorizing provider and meeting all other requirements Future Appointments Date Type Provider Dept 09/22/20 Appointment Nicolas Greer MD [facility] Showing future appointments within next 90 days with a meds authorizing provider and meeting all other requirements documented in this encounter Plan of Treatment Upcoming Encounters Date Type Department Care Team (Late st Contact Info) Description 04/24/2024 2:00 PM CDT Office Visit [facility] Medical [facility] - Endocrinology - [place] #2 [place] [address] Chetan Do MD #[address] [address] 08/14/2024 1:00 PM CDT Office Visit [facility] - Pulmonology & Sleep Medicine - [place] [address] [place] [address] Raghu Green MD #2 [place] [address] 09/17/2024 1:00 PM CDT Office Visit [facility] Medical [facility] - Family Medicine - [place] #2 [place] [address] Nicolas Greer MD #[address] [address] documented as of this encounter Visit Diagnoses Diagnosis Depression with anxiety Dysthymic disorder Pulmonary emphysema, unspecified emphysema type (HCC) documented in this encounter Additional Health Concerns Infection Onset Date Last Indicated Resolved Time COVID - 19 09/02/2021 09/02/2021 09/03/2021 2:05 PM CDT COVID - 19 12/24/2021 12/24/2021 12/26/2021 8:07 AM INFECTION PREVENTIONIST Respiratory Rule Out - RPA 12/24/2021 12/24/2021 1 02/24/2021 4:41 PM INFECTION PREVENTIONIST Influenza 12/24/2021 12/24/2021 12/31/2021 12:1 6 AM INFECTION PREVENTIONIST Assessment Noted Time PHQ-9 Depression Total Score: 0 02/12/19 20 10:45 AM INFECTION PREVENTIONIST documented as of this encounter Care Teams Double Surface Operator Relationship Specialty Start Date End Date Nicolas Greer MD #[address] [address] PCP - General Family Medicine 12/22/14 09/07/21 Nicolas Greer MD #[address] [address] PCP - General Family Medicine 09/08/21 Ariel Christiansen MD #[address] [address] Consulting Physician Cardiovascular Disease - Cardiology 07/19/16 [place] [address] [address] Fashion Model Pulmonary Disease 06/18/20 Keny Saldaña APRN, ENGINE REPAIRER PRODUCTION #[address] [address] Nurse Practitioner Advanced Practice Nurse 09/08/21 Cristian Dewitt MD #[address] [address] Consulting Physician Cardiovascular Disease - Cardiology 10/06/21 02/07/24 Ale Spain, RN [place] Sample Grinder 03/15/22 02/12/23 Ale Spain, WALDO [place] Nurse Sample Grinder 03/15/22 02/13/23 Yamel Kurtz III, MD #2 [place] [address] Consulting Physician Urology 09/11/22 Raghu Green MD #2 [place] [address] Consulting Physician Pulmonary Disease 01/04/22 Warren Osborn MD #[address] [address] Consulting Physician Colon and Rectal Surgery 05/21/23 Ale Spain RN [place] Nurse Sample Grinder 09/05/23 Chetan Do MD #[address] [address] Consulting Physician Endocrinology 01/23/24 documented as of this encounter
--- OUTSIDE RECORDS SUMMARY | 2024-03-24 13:02 | XMS_ITS | Encounter Summary ---
Author Organization [facility] Address [address] [place] [place] [address] Phone Care Team Providers Care Application Integration Engineer Name Role Phone Ariel Christiansen MD Unavailable [phone] Parmjit Vogel MD Unavailable [phone] Nicolas Greer MD Primary Care Provider [phone] Keny Saldaña APRN, PORCELAIN ENAMEL REPAIRER Unavailable Cristian Dewitt MD Unavailable Ale Black RN Unavailable Unavailable Ale Spain RN Unavailable Unavailable Jerardo MCCANN MD, Courtney Unavailable [phone] Raghu Green MD Unavailable Warren Osborn MD Unavailable Ale Spain RN Unavailable Unavailable Chetan Do MD Unavailable Reason for Visit * Reason Comments Medication Refill Encounter Details Date Type Department Care Team (Late st Contact Info) Description 03/01/2022 Refill [facility] #2 [place] [address] Nicolas Greer MD #[address] [address] Medication Refill Social History Tobacco Use Types [...] Job Start Date Job End Date Retired [email or web address] Not on file Not on file Not on file COVID-19 Exposure Response Date Recorded In the last 10 days, have yo u been in contact with someone who was confirmed or suspected to have Coronavirus/COVID-19? No / Unsure 02/15/2022 10:32 AM DENTISTRY PROFESSOR documented as of this encounter Miscellaneous Notes * Telephone Encounter - Nicolle Funk RN - 03/02/2022 8:24 AM CST PDMP 01/31/22 Medication failed the protocol, provider to review and approve the medication order if appropriate. Requested Prescriptions Pending Prescriptions Disp Refills traMADol (ULTRAM) 50 MG Tablet [Pharmacy Med Name: TRAMADOL HCL 50 MG TABLET] 90 Tablet 0 Sig: TAKE ONE TABLET BY MOUTH EVERY EIGHT HOURS NEEDED FOR PAIN Not Delegated - Opioid Agonists Protocol Failed - 03/01/2022 12:08 PM Failed - This refill cannot be delegated Passed - Visit with relevant provider in past 12 months or upcoming 90 days Recent Visits Date Type Provider Dept 02/13/22 Telemedicine Nicolas Greer MD [facility] [place] [facility] 01/11/22 [facility]icine [facility]22 Telemedicine Keny Saldaña APRN, M[facility] 12/19/21 Office Visit Nicolsa Greer MD [facility] 09/08/21 Office Visit Keny Saldaña APRN, PORCELAIN ENAMEL REPAIRER [facility] [place] [facility] 08/03/21 Telemedicine Nicolas Greer MD [facility] 07/21/21 Telemedicine Nicolas Greer MD [facility] 04/28/21 Telemedicine Nicolas Greer MD [facility] Showing recent visits within past 365 days and meeting all other requirements Future Appointments Date Type Provider Dept 03/22/22 Appointment Nicoals Greer MD [facility] Showing future appointments within next 90 days and meeting all other requirements ISTRY PROFESSOR documented in this encounter Plan of Treatment Upcoming Encounters Date Type Department Care Team (Late st Contact Info) Description 04/24/2024 2:00 PM CDT Office Visit [facility] - Endocrinology - [place] #2 [place] [phone] Chetan Do MD #[address] [phone] 08/14/2024 1:00 PM CDT Office Visit [facility] - Pulmonology & Sleep Medicine [facility] #2 [place] [address] Raghu Green MD #2 [place] [address] 09/17/2024 1:00 PM CDT Office Visit [facility] Medical [facility] - Family Medicine - [place] #2 [facility] [phone] Nicolas Greer MD #[address] [address] documented as of this encounter Visit Diagnoses Diagnosis Chronic pain of both knees documented in this encounter Additional Health Concerns Assessment Noted Time PHQ-9 Depression Total Score: 0 02/12/19 20 10:45 AM DENTISTRY PROFESSOR documented as of this encounter Care Teams Application Integration Engineer Relationship Specialty Start Date End Date Nicolas Greer MD #[address] [address] PCP - General Family Medicine 09/08/21 Ariel Christiansen MD Consulting Physician Cardiovascular Disease - Cardiology 07/19/16 [place] [address] [address] Scalemaker Pulmonary Disease 06/18/20 Keny Saldaña APRN, PORCELAIN ENAMEL REPAIRER #[address] [address] Nurse Practitioner Advanced Practice Nurse 09/08/21 Cristian Dewitt MD #[address] [address] Consulting Physician Cardiovascular Disease - Cardiology 10/06/21 02/07/24 Ale Spain, RN [place] Retail And Restaurant Associate 03/15/22 02/12/23 Ale Spain, RN [place] Nurse Retail And Restaurant Associate 03/15/22 02/13/23 Yamel Kurtz III, MD #2 [place] [address] Consulting Physician Urology 09/11/22 Raghu Green MD #2 [place] [address] Consulting Physician Pulmonary Disease 01/04/22 Warren Osborn MD #[address] [address] Consulting Physician Colon and Rectal Surgery 05/21/23 Ale Spain RN [place] Nurse Retail And Restaurant Associate 09/05/23 Chetan Do MD #[address] [phone] Consulting Physician Endocrinology 01/23/24 documented as of this encounter
--- OUTSIDE RECORDS SUMMARY | 2024-03-24 13:02 | XMS_ITS | Encounter Summary ---
Author Organization [facility] Address [address] [place] [place] [address] Phone Care Team Providers Care Lead Vulcanizing Operator Name Role Phone Ariel Christiansen MD Unavailable [phone] Parmjit Vogel MD Unavailable [phone] Nicolas Greer MD Primary Care Provider [phone] Keny Saldaña APRN, DISPENSING OPERATOR Unavailable Cristian Dewitt MD Unavailable Ale Black RN Unavailable Unavailable Ale Spain RN Unavailable Unavailable Jerardo MCCANN MD, Courtney Unavailable [phone] Raghu Green MD Unavailable Warren Osborn MD Unavailable Ale Spain RN Unavailable Unavailable Chetan Do MD Unavailable Reason for Visit * Reason Comments Medication Refill Encounter Details Date Type Department Care Team (Late st Contact Info) Description 12/11/2022 Refill [facility] #2 [place] [address] Nicolas Greer MD #[address] [address] Medication Refill Social History Tobacco Use Types [...] Job Start Date Job End Date Retired [employer] Not on file Not on file Not on file COVID-19 Exposure Response Date Recorded In the last 10 days, have yo u been in contact with someone who was confirmed or suspected to have Coronavirus/COVID-19? No / Unsure 11/13/2022 11:10 AM CDT documented as of this encounter Functional Status * Question Answer Date of Assessment Author Little interest or pleasure in doing things Not at all 12/11/2022 9:50 AM Ale Eller RN Feeling down, depressed, or hopeless Not at all 12/11/2022 9:50 AM Ale Eller RN * Over the past 2 weeks, how often have you been bothered by any of the following problems? Question Answer Date of Assessment Author Patient Health Questionnaire -2 Score 0 12/11/2022 9:50 AM Ale Eller RN documented as of this encounter Miscellaneous Notes * Telephone Encounter - Nicolle Funk RN - 12/11/2022 5:14 PM CST Per nursing clinical judgement, provider to review and approve the medication(s) order(s) if appropriate. Requested Prescriptions Pending Prescriptions Disp Refills torsemide (DEMADEX) 20 MG Tablet [Pharmacy Med Name: TORSEMIDE 20 MG TABLET] 90 Tablet 1 Sig: TAKE ONE TABLET BY MOUTH DAILY #0100 Diuretics Protocol Passed - 12/11/2022 12:54 PM Passed - Serum potassium on [...] 09/21/22 Office Visit Nicolas Greer MD [facility] 07/18/22 Telemedicine Nicolas Greer MD [facility] 06/21/22 Office Visit Nicolas Greer MD [facility] 03/22/22 Office Visit Nicolas Greer MD [facility] 03/07/22 Telemedicine Nicolas Greer MD [facility] 02/13/22 Telemedicine Nicolas Greer MD [facility] 01/11/22 Telemedicine Nicolas Greer MD [facility] 01/09/22 Telemedicine Keny Saldaña APRN, MARY [facility] 12/19/21 Office Visit Nicolas Greer MD [facility] Showing recent visits within past 365 days and meeting all other requirements Future Appointments Date Type Provider Dept 12/21/22 Appointment Nicolas Greer MD [facility] Showing [...] TAKE TWO TABLETS BY MOUTH DAILY #0200 There is no refill protocol information for this order GRAILS DEVELOPER documented in this encounter Plan of Treatment Upcoming Encounters Date Type Department Care Team (Late st Contact Info) Description 04/24/2024 2:00 PM CDT Office Visit [facility] Medical [facility] Endocrinology [facility] #2 [place] [phone] Chetan Do MD #[address] [address] 08/14/2024 1:00 PM CDT Office Visit [facility] - Pulmonology & Sleep Medicine [facility] #2 [place] [phone] Raghu Green MD #2 [place] [phone] 09/17/2024 1:00 PM CDT Office Visit [facility] Family Medicine [facility] #2 [place] [address] Nicolas Greer MD #[address] [address] documented as of this encounter Visit Diagnoses Diagnosis Edema, unspecified type documented in this encounter Additional Health Concerns Assessment Noted Time PHQ-9 Depression Total Score: 0 09/22/19 23 1:48 PM CDT documented as of this encounter Care Teams Lead Vulcanizing Operator Relationship Specialty Start Date End Date Nicolas Greer MD #[address] [address] PCP - General Family Medicine 09/08/21 Ariel Christiansen MD Consulting Physician Cardiovascular Disease - Cardiology 07/19/16 [place] [address] [address] Stain Remover Pulmonary Disease 06/18/20 Keny Saldaña APRN, DISPENSING OPERATOR #[address] [address] Nurse Practitioner Advanced Practice Nurse 09/08/21 Cristian Dewitt MD #[address] [address] Consulting Physician Cardiovascular Disease - Cardiology 10/06/21 02/07/24 Ale Spain, RN [place] E Business Specialist 03/15/22 02/12/23 Ale Spain, RN [place] Nurse E Business Specialist 03/15/22 02/13/23 Yamel Kurtz III, MD #2 [place] [address] Consulting Physician Urology 09/11/22 Raghu Green MD #2 [place] [address] Consulting Physician Pulmonary Disease 01/04/22 Warren Osborn MD #[address] [address] Consulting Physician Colon and Rectal Surgery 05/21/23 Ale Spain, RN [place] Nurse E Business Specialist 09/05/23 Chetan Do MD #[address] [phone] Consulting Physician Endocrinology 01/23/24 documented as of this encounter
--- OUTSIDE RECORDS SUMMARY | 2024-03-24 13:02 | XMS_ITS | Encounter Summary ---
Author Organization [facility] Address [address] [place] [address] Phone Care Team Providers Care Fruit Checker Name Role Phone Ariel Christiansen MD Unavailable [phone] Parmjit Vogel MD Unavailable [phone] Nicolas Greer MD Primary Care Provider [phone] Keny Saldaña APRN, CHIEF PROJECTIONIST Unavailable Cristian Dewitt MD Unavailable Ale Black RN Unavailable Unavailable Ale Spain RN Unavailable Unavailable Jerardo MCCANN MD, Courtney Unavailable [phone] Raghu Green MD Unavailable Warren Osborn MD Unavailable Ale Spain RN Unavailable Unavailable Chetan Do MD Unavailable Reason for Visit * Reason Comments Medication Refill Encounter Details Date Type Department Care Team (Late st Contact Info) Description 10/20/2022 Refill [facility] #2 [place] [address] Nicolas Greer MD #[address] [address] Medication Refill Social History Tobacco Use Types [...] Job Start Date Job End Date Retired [employer] Not on file Not on file Not on file COVID-19 Exposure Response Date Recorded In the last 10 days, have yo u been in contact with someone who was confirmed or suspected to have Coronavirus/COVID-19? No / Unsure 09/21/2022 12:13 PM CDT documented as of this encounter Miscellaneous Notes * Telephone Encounter - Nicolle Funk RN - 10/20/2022 1:59 PM CDT Medication failed the protocol, provider to review and approve the medication order if appropriate. Requested Prescriptions Pending Prescriptions Disp Refills Aspirin Low Dose 81 MG Tablet Delayed Response [Pharmacy Med Name: ASPIRIN EC 81 MG TABLET] 90 Tablet 2 Sig: TAKE 1 TABLET BY MOUTH DAILY. #1000 Platelet Inhibitors Protocol Passed - 10/20/2022 9:47 AM Passed - CBC on record in [...] [place] 01/11/22 Telemedicine Nicolas Greer MD [facility] 01/09/22 Telemedicine Keny Saldaña APRN, CNP [facility] [place] [place] 12/19/21 Office Visit Nicolas Greer MD [facility] Showing recent visits within past 365 days and meeting all other requirements Future Appointments Date Type Provider Dept 12/22/22 Appointment Nicolas Greer MD [facility] Showing future appointments within next 90 days and meeting all other requirements allopurinol (ZYLOPRIM) 100 MG Tablet [Pharmacy Med Name: ALLOPURINOL 100MG TABLET] 180 Tablet 2 Sig: TAKE TWO TABLETS BY MOUTH DAILY #2000 Gout Agents Protocol Failed - 10/20/2022 9:47 AM Failed - Uric acid on record in past 12 months URIC ACID Date Value Ref Range Status 08/05/2021 4.1 2.4 - 5.7 mg/dL Final Passed - Visit with relevant [...] [place] 01/09/22 Telemedicine Keny Saldaña APRN, MARY [facility] 12/19/21 Office Visit Nicolas Greer MD [facility] Showing recent visits within past 365 days and meeting all other requirements Future Appointments Date Type Provider Dept 12/22/22 Appointment Nicolas Greer MD [facility] Show[place] future appointments within next 90 days and meeting all other requirements Passed - Serum creatinine on record in past 12 months CREATININE - POCT Date Value Ref Range Status 04/06/2022 1.2 0.6 - 1.3 mg/dL Final CREATININE, BLOOD Date Value Ref Range Status 04/06/2022 1.11 (H) 0.60 - 1.10 mg/dL Final lovastatin (MEVACOR) 40 MG Tablet [Pharmacy Med Name: LOVASTATIN 40 MG TABLET] 45 Tablet 2 Sig: Take 0.5 Tablets by mouth daily. Hmg CoA Reductase Inhibitors Protocol Failed - 10/20/2022 9:47 AM Failed - Lipid panel in past 12 months LDL Date Value Ref Range Status 08/05/2021 103 5 - 130 mg/dL Final HDL CHOLESTEROL Date Value Ref Range Status 08/05/2021 49.9 >40 mg/dL Final CHOLESTEROL Date Value Ref Range Status 08/05/2021 183 <=200 mg/dL Final TRIGLYCERIDES Date Value Ref Range Status 08/05/2021 152 (H) <150 mg/dL Final VLDL Date Value Ref Range Status 08/05/2021 30 5 - 55 mg/dL Final CHOL/HDL RATIO Date Value Ref Range Status 08/05/2021 3.7 0.0 - 4.4 Final NON-HDL CHOLESTEROL Date Value Ref Range Status 08/05/2021 133.1 (H) <130 mg/dL Final Passed - Visit [...] [facility] 01/09/22 Telemedicine Keny Saldaña APRN, CHIEF PROJECTIONIST [facility] [place] 12/19/21 Office Visit Nicolas Greer MD [facility] Showing recent visits within past 365 days and meeting all other requirements Future Appointments Date Type Provider Dept 12/22/22 Appointment Nicolas Greer MD [facility] Show[place] future appointments within next 90 days and meeting all other requirements Passed - CMP in past 12 months SODIUM Date Value Ref Range Status 04/06/2022 143 136 - 144 mmol/L Final POTASSIUM Date Value Ref Range Status 04/06/2022 3.4 (L) 3.5 - 5.1 mmol/L Final CHLORIDE Date Value Ref Range Status 04/06/2022 101 100 - 110 mmol/L Final CO2, VENOUS Date Value Ref Range Status 04/06/2022 34 (H) 22 - 32 mmol/L Final ANION GAP Date Value Ref Range Status 04/06/2022 11.4 8.0 - 20.0 mmol/L Final GLUCOSE Date Value Ref Range Status 04/06/2022 161 (H) 70 - 99 mg/dL Final BUN Date Value Ref Range Status 04/06/2022 18 8 - 23 mg/dL Final CREATININE - POCT Date Value Ref Range Status 04/06/2022 1.2 0.6 - 1.3 mg/dL Final CREATININE, BLOOD Date Value Ref Range Status 04/06/2022 1.11 (H) 0.60 - 1.10 mg/dL Final BUN/CREATININE RATIO Date Value Ref Range Status 04/06/2022 16 12 - 20 ratio Final TOTAL PROTEIN Date Value Ref Range Status 12/24/2021 7.6 6.0 - 8.3 g/dL Final ALBUMIN Date Value Ref Range Status 04/06/2022 4.4 3.5 - 5.2 g/dL Final Comment: The colormetric methods used for the determination of Albumin may lead to falsely elevated test results in patients suffering from renal failure or insufficiency due to interference with other proteins. A/G RATIO Date Value Ref Range Status 12/24/2021 1.5 1.0 - 2.0 Final CALCIUM Date Value Ref Range Status 04/06/2022 11.2 (H) 8.9 - 10.3 mg/dL Final T BILI Date Value Ref Range Status 12/24/2021 0.4 <=1.2 mg/dL Final SGOT (AST) Date Value Ref Range Status 12/24/2021 80 (H) <=32 U/L Final SGPT (ALT) Date Value Ref Range Status 12/24/2021 20 <=41 U/L Final ALKALINE PHOSPHATASE Date Value Ref Range Status 12/24/2021 91 35 - 105 U/L Final GFR, EST. NONAFRICAN Date Value Ref Range Status 04/06/2022 48 (L) >=60 Final GFR, EST. Date Value Ref Range Status 04/06/2022 58 (L) >=60 Final GFR, ESTIMATED Date Value Ref Range Status 04/06/2022 52 (L) >=60 Final Comment: Creatinine Clearance is the preferred criteria for selecting drug dose adjustments in renally impaired patients. The GFR is provided as additional pertinent clinical information. GFR is reported in mL/min/1.73 sq m. Calculation based on the Chronic Kidney Disease Epidemiology Collaboration (CKD- EPI) equation refitwithout adjustment for race. potassium chloride CR (KLORCON) 10 MEQ Tablet Controlled Release [Pharmacy Med Name: POTASSIUM CL ER 10 MEQ TABLETS] 180 Tablet 2 Sig: TAKE TWO TABLETS BY MOUTH DAILY #2000 Potassium Supplement Protocol Failed - 10/20/2022 9:47 AM Failed - Normal serum potassium in past 12 months POTASSIUM Date Value Ref Range Status 04/06/2022 3.4 (L) 3.5 - 5.1 mmol/L Final Passed - Visit with relevant provider [...] [place] 01/09/22 Telemedicine Keny Saldaña APRN, MARY [facility] 12/19/21 Office Visit Nicolas Greer MD [facility] Showing recent visits within past 365 days and meeting all other requirements Future Appointments Date Type Provider Dept 12/22/22 Appointment Nicolas Greer MD [facility] Showing future appointments within next 90 days and meeting all other requirements sertraline (ZOLOFT) 50 MG Tablet [Pharmacy Med Name: SERTRALINE HCL 50 MG TABLET] 90 Tablet 2 Sig: TAKE 1 TABLET BY MOUTH DAILY. #1000 SSRI (6 Month Refill Only) Protocol Passed - 10/20/2022 9:47 AM Passed - Visit with relevant provider in past 6 months or upcoming 90 days Recent Visits Date Type Provider Dept 09/21/22 Office Visit Nicolas Greer MD [facility] 07/18/22 Telemedicine Nicolas Greer MD [facility] 06/21/22 Office Visit Nicolas Greer MD [facility] Showing recent visits within past 182 days and meeting all other requirements Future Appointments Date Type Provider Dept 12/22/22 Appointment Nicolas Greer MD [facility] Showing future appointments within next 90 days and meeting all other requirements Passed - Patient has established therapy with SSRI for at least 6 months Passed - Has an encounter in the past 6 months with a depression, anxiety, adjustment disorder, OCD, or PTSD visit diagnosis documented in this encounter Plan of Treatment Upcoming Encounters Date Type Department Care Team (Late st Contact Info) Description 04/24/2024 2:00 PM CDT Office Visit [facility] Medical [facility] - Endocrinology - [place] #2 [place] [address] Chetan Do MD #2 [facility] [address] [place] [address] 08/14/2024 1:00 PM CDT Office Visit [facility] Medical [facility] - Pulmonology & Sleep Medicine - [place] #2 [place] [address] Raghu Green MD #2 [facility] [place] [address] 09/17/2024 1:00 PM CDT Office Visit [facility] Medical [facility] - Family Medicine - [place] #2 [place] [address] Nicolas Greer MD #2 [facility] [address] [place] [address] documented as of this encounter Visit Diagnoses Diagnosis Depression with anxiety Dysthymic disorder documented in this encounter Additional Health Concerns Assessment Noted Time PHQ-9 Depression Total Score: 0 09/22/19 23 1:48 PM CDT documented as of this encounter Care Teams Fruit Checker Relationship Specialty Start Date End Date Nicolas Greer MD #2 [facility] [address] [place] [address] PCP - General Family Medicine 09/08/21 Ariel Christiansen MD Consulting Physician Cardiovascular Disease - Cardiology 07/19/16 [place] [address] [address] Superintendent [employer] Pulmonary Disease 06/18/20 Keny Saldaña, SILK FOLDER, CHIEF PROJECTIONIST #[address] [address] Nurse Practitioner Advanced Practice Nurse 09/08/21 Cristian Dewitt MD #[address] [address] Consulting Physician Cardiovascular Disease - Cardiology 10/06/21 02/07/24 Ale Spain, RN [place] Health Unit Coordinator 03/15/22 02/12/23 Ale Spain, RN [place] Nurse Health Unit Coordinator 03/15/22 02/13/23 Yamel Kurtz III, MD #2 [place] [address] Consulting Physician Urology 09/11/22 Raghu Green MD #2 [place] [address] Consulting Physician Pulmonary Disease 01/04/22 Warren Osborn MD #[address] [address] Consulting Physician Colon and Rectal Surgery 05/21/23 Ale Spain, RN [place] Nurse Health Unit Coordinator 09/05/23 Chetan Do MD #[address] [place] [address] Consulting Physician Endocrinology 01/23/24 documented as of this encounter
--- OUTSIDE RECORDS SUMMARY | 2024-03-24 13:02 | XMS_ITS | Encounter Summary ---
Author Organization [facility] Address [address] [place] [place] [address] Phone Care Team Providers Care Supervisor Sawmill Name Role Phone Nicolas Greer MD Primary Care Provider [phone] Ariel Christiansen MD Unavailable [phone] Parmjit Vogel MD Unavailable [phone] Nicolas Greer MD Primary Care Provider [phone] Keny Saldaña APRN, DEFENSE ATTORNEY Unavailable Cristian Dewitt MD Unavailable Ale Black RN Unavailable Unavailable lAe Spain RN Unavailable Unavailable Jerardo MCCANN MD, Courtney Unavailable [phone] Raghu Green MD Unavailable Warren Osborn MD Unavailable Ale Spain RN Unavailable Unavailable Chetan Do MD Unavailable Reason for Visit * Reason Comments Medication Refill Encounter Details Date Type Department Care Team (Late st Contact Info) Description 05/12/2020 Refill [facility] Family [facility] #2 [place] [address] Nicolas Greer MD #2 [facility] [address] [place] [address] Medication Refill Social History Tobacco Use Types [...] Job Start Date Job End Date Retired [employer] Not on file Not on file Not on file documented as of this encounter Miscellaneous Notes * Telephone Encounter - Kayla Meehan RN - 05/13/2020 9:52 AM CDT Medication failed the protocol, provider to review and approve the medication order if appropriate. Requested Prescriptions Pending Prescriptions Disp Refills benzonatate (TESSALON) 100 MG Capsule [Pharmacy Med Name: Benzonatate 100 MG Oral Capsule] 30 Capsule 0 Sig: Take 1 capsule by mouth three times daily as needed for cough Not Delegated - Ear, Nose, and Throat: Antitussives/Expectorants Failed - 05/12/2020 1:30 PM Failed - This refill cannot be [...] - Family Medicine - Keny Crowder APN, DEFENSE ATTORNEY 11 months ago Ptosis of both eyelids [facility] - Family [facility] - Keny Crowder APN, DEFENSE ATTORNEY 1 year ago Hypothyroidism, unspecified type [facility] [place] Upcoming Appointments Future Appointments In 3 weeks [facility] LOGISTICS PROJECT MANAGER - Recent and Past Visits Recent Visits Date Type Provider Dept 03/11/20 Office Visit Nicolas Greer MD [facility] 10/14/19 Office Visit Nicolas Greer MD [facility] 07/14/19 Office Visit Keny Saldaña APN, CNP [facility] 05/22/19 Telemedicine Keny Saldaña APN, CNP [facility] 02/12/19 Office Visit Nicolas Greer MD [facility] Showing recent visits within past 460 days with a meds authorizing provider and meeting all other requirements Future Appointments Date Type Provider Dept 06/08/20 Appointment Nicolas Greer MD [facility] Showing future appointments within next 90 days with a meds authorizing provider and meeting all other requirements allopurinol (ZYLOPRIM) 100 MG Tablet [Pharmacy Med Name: Allopurinol 100 MG Oral Tablet] 180 Tablet0 Sig: Take 2 tablets by mouth once daily Endocrinology: Gout Agents Passed - 05/12/2020 1:30 PM Passed - Valid encounter within last 12 months Past Office Visits Recent Outpatient Visits 2 months ago Chronic obstructive pulmonary disease, unspecified COPD type (HCC) [facility] Nicolas Waters MD 7 months ago Hyperlipidemia, unspecified hyperlipidemia type [facility] Nicolas Waters MD 10 months ago Pulmonary emphysema, unspecified emphysema type (HCC) [facility] Keny Crowder APN, MARY 11 months ago Ptosis of both eyelids [facility] Keny Crowder APN, MARY 1 year ago Hypothyroidism, unspecified type [facility] Nicolas Waters MD Upcoming Appointments Future Appointments In 3 weeks Nicolas Greer MD [facility], [facility] LOGISTICS PROJECT MANAGER - Recent and Past Visits Recent Visits Date Type Provider Dept 03/11/20 Office Visit Nicolas Greer MD [facility] 10/14/19 Office Visit Nicolas Greer MD [facility] 07/14/19 Office Visit Keny Saldaña APN, DEFENSE ATTORNEY [facility] Tele[facility]icine Keny Saldaña APN, DEFENSE ATTORNEY [facility] 02/12/19 Office Visit Nicolas Greer MD [facility] [...] Description 04/24/2024 2:00 PM CDT Office Visit [facility] - Endocrinology [place] #2 [place] [address] Chetan Do MD #[address] [address] 08/14/2024 1:00 PM CDT Office Visit [facility] - Pulmonology & Sleep Medicine - [place] #2 [place] [address] Raghu Green MD #2 [place] [address] 09/17/2024 1:00 PM CDT Office Visit [facility] Family Medicine - [place] #2 [place] [address] Nicolas Greer MD #[address] [address] documented as of this encounter Visit Diagnoses Diagnosis Pulmonary emphysema, unspecified emphysema type (HCC) documented in this encounter Additional Health Concerns Infection Onset Date Last Indicated Resolved Time COVID - 19 09/02/2021 09/02/2021 09/03/2021 2:05 PM CDT COVID - 19 12/24/2021 12/24/2021 12/26/2021 8:07 AM TICKET DISPENSER CHANGER Respiratory Rule Out - RPA 12/24/2021 12/24/2021 1 02/24/2021 4:41 PM TICKET DISPENSER CHANGER Influenza 12/24/2021 12/24/2021 12/31/2021 12:1 6 AM TICKET DISPENSER CHANGER Assessment Noted Time PHQ-9 Depression Total Score: 0 02/12/19 10:45 AM TICKET DISPENSER CHANGER documented as of this encounter Care Teams Supervisor Sawmill Relationship Specialty Start Date End Date Nicolas Greer MD #[address] [address] PCP - General Family Medicine 12/22/14 09/07/21 Nicolas Greer MD #[address] [address] PCP - General Family Medicine 09/08/21 Ariel Christiansen MD #[address] [address] Consulting Physician Cardiovascular Disease - Cardiology 07/19/16 [place] [id number] [address] Diesel Tractor Engine Mechanic Pulmonary Disease 06/18/20 Keny Saldaña APRN, DEFENSE ATTORNEY #[address] [address] Nurse Practitioner Advanced Practice Nurse 09/08/21 Cristian Dewitt MD #[address] [address] Consulting Physician Cardiovascular Disease - Cardiology 10/06/21 02/07/24 Ale Spain, RN [place] Information And Data Architect Analyst 03/15/22 02/12/23 Ale Spain, RN [place] Nurse Information And Data Architect Analyst 03/15/22 02/13/23 Yamel Kurtz III, MD #2 [place] [address] Consulting Physician Urology 09/11/22 Raghu Green MD #2 [place] [address] Consulting Physician Pulmonary Disease 01/04/22 Warren Osborn MD #[address] [address] Consulting Physician Colon and Rectal Surgery 05/21/23 Ale Spain, RN [place] Nurse Information And Data Architect Analyst 09/05/23 Chetan Do MD #[address] [phone] Consulting Physician Endocrinology 01/23/24 documented as of this encounter
--- OUTSIDE RECORDS SUMMARY | 2024-03-24 13:02 | XMS_ITS | Encounter Summary ---
Author Organization [facility] Address [address] [place] [address] Phone Care Team Providers Care Manager Of Project Management Name Role Phone Ariel Christiansen MD Unavailable [phone] Parmjit Vogel MD Unavailable [phone] Nicolas Greer MD Primary Care Provider [phone] Keny Saldaña APRN, SCALE TESTER Unavailable Cristian Dewitt MD Unavailable Unaruslani Ale Richard RN Unavailable Unavailable Ale Spain RN Unavailable Unavailable Jerardo MCCANN MD, Courtney Unavailable [phone] Raghu Green MD Unavailable Warren Osborn MD Unavailable Ale Spain RN Unavailable Unavailable Chetan Do MD Unavailable Encounter Details Date Type Department Care Team (Late st Contact Info) Description 02/15/2022 [facility] [address] [place] [id number] Nicolas Greer MD #[address] [address] Anemia, unspecified Social History Tobacco Use Types Packs/Day Years [...] Job Start Date Job End Date Retired [employer] Not on file Not on file Not on file COVID-19 Exposure Response Date Recorded In the last 10 days, have yo u been in contact with someone who was confirmed or suspected to have Coronavirus/COVID-19? No / Unsure 02/15/2022 10:32 AM TECHNOLOGY ADMINISTRATOR documented as of this encounter Plan of Treatment Upcoming Encounters Date Type Department Care Team (Late st Contact Info) Description 04/24/2024 2:00 PM CDT Office Visit [facility] - Endocrinology - [place] #2 [place] [address] Chetan Do MD #[address] [address] 08/14/2024 1:00 PM CDT Office Visit [facility] - Pulmonology & Sleep Medicine [facility] #2 [place] [address] Raghu Green MD #2 [place] [address] 09/17/2024 1:00 PM CDT [facility] - [place] #2 [place] [address] Nicolas Greer MD [address] [address] documented as of this encounter Procedures Procedure Name Priority Date/Time Associated Diagnosis Comments VITAMIN B12 Routine 12/07/2022 11:02 AM CDT Anemia, unspecified THYROID STIMULATING HORMONE (TSH) Routine 02/15/2022 11:02 AM TECHNOLOGY ADMINISTRATOR Anemia, unspecified FERRITIN Routine 02/15/2022 11:02 AM TECHNOLOGY ADMINISTRATOR Anemia, unspecified BASIC METABOLIC PANEL W/ CALCIUM TOTAL Routine 02/15/2022 11:02 AM TECHNOLOGY ADMINISTRATOR Anemia, unspecified documented in this encounter Results * VITAMIN B12 (12/07/2022 11:02 AM CDT) VITAMIN B12 760 243 - 894 pg/mL 02/15/2022 1:18 PM TECHNOLOGY ADMINISTRATOR [facility] Blood No Phlebotomy Charged / Unknown 12/07/2022 11:02 AM CDT 02/15/2022 12:30 PM TECHNOLOGY ADMINISTRATOR Nicolas Greer MD CHEMISTRY ORDERABLES Final Result [facility] [address] [place] [address] * (ABNORMAL) FERRITIN (02/15/2022 11:02 AM TECHNOLOGY ADMINISTRATOR) FERRITIN 348(H) 13 - 150 ng/mL 02/15/2022 1:11 PM TECHNOLOGY ADMINISTRATOR [facility] Blood No Phlebotomy Charged / Unknown 02/15/2022 11:02 AM TECHNOLOGY ADMINISTRATOR 02/15/2022 12:30 PM TECHNOLOGY ADMINISTRATOR Nicolas Greer MD CHEMISTRY ORDERABLES Final Result Performing Organization Address City/[facility]/ZIP Co de Phone Number [facility] #1 [place] [address] * THYROID STIMULATING HORMONE (TSH) (02/15/2022 11:02 AM TECHNOLOGY ADMINISTRATOR) TSH 1.600 0.270 - 4.200 mIU/L 02/15/2022 1:11 PM TECHNOLOGY ADMINISTRATOR [facility] Blood No Phlebotomy Charged / Unknown 02/15/2022 11:02 AM TECHNOLOGY ADMINISTRATOR 02/15/2022 12:30 PM TECHNOLOGY ADMINISTRATOR Nicolas Greer MD CHEMISTRY ORDERABLES Final Result Performing Organization Address [facility]/ZIP Co de Phone Number [facility] #1 [place] [address] * (ABNORMAL) BASIC METABOLIC PANEL W/ CALCIUM TOTAL (02/15/2022 11:02 AM TECHNOLOGY ADMINISTRATOR) Pathologist [facility] SODIUM 139 136 - 144 mmol/L 02/15/2022 1:[address] [facility] POTASSIUM 4.2 3.5 - 5.1 mmol/L 02/15/2022 1:[address] [facility] CHLORIDE 94(L) 100 - 110 mmol/L 02/15/2022 1:[address] [facility] CO2, VENOUS 36(H) 22 - 32 mmol/L 02/15/2022 1:[address] [facility] ANION GAP 13.2 8.0 - 20.0 mmol/L 02/15/2022 1:[address] [facility] GLUCOSE 152(H) 70 - 99 mg/dL 02/15/2022 1:[address] [facility] BUN 14 8 - 23 mg/dL 02/15/2022 1:[address] [facility] CREATININE, BLOOD 0.88 0.60 - 1.10 mg/dL 02/15/2022 1:11 PM TECHNOLOGY ADMINISTRATOR [facility] BUN/CREATININE RATIO 16 12 - 20 ratio 02/15/2022 1:11 PM TECHNOLOGY ADMINISTRATOR [facility] CALCIUM 11.7(H) 8.9 - 10.3 mg/dL 02/15/2022 1:11 PM TECHNOLOGY ADMINISTRATOR [facility] GFR, ESTIMATED >60 >=60 02/15/2022 1:11 PM TECHNOLOGY ADMINISTRATOR [facility] Comment: Creatinine Clearance is the preferred criteria for selecting drug dose adjustments in renally impaired patients. The GFR is provided as additional pertinent clinical information. GFR is reported in mL/min/1.73 sq m. Calculation based on the Chronic Kidney Disease Epidemiology Collaboration (CKD- EPI) equation refit without adjustment for race. GFR, EST. >60 >=60 023 1:11 PM TECHNOLOGY ADMINISTRATOR [facility] GFR, EST. NONAFRICAN >60 >=60 02/15/2022 1:11 PM TECHNOLOGY ADMINISTRATOR [facility] Blood No Phlebotomy Charged / Unknown 02/15/2022 11:02 AM TECHNOLOGY ADMINISTRATOR 02/15/2022 12:30 PM TECHNOLOGY ADMINISTRATOR Nicolas Greer MD CHEMISTRY ORDERABLES Final Result [facility] #[address] [place] [address] documented in this encounter Visit Diagnoses Diagnosis Anemia, unspecified documented in this encounter Additional Health Concerns Assessment Noted Time PHQ-9 Depression Total Score: 0 02/12/19 20 10:45 AM TECHNOLOGY ADMINISTRATOR documented as of this encounter Care Teams Manager Of Project Management Relationship Specialty Start Date End Date Nicolas Greer MD #[address] [address] PCP - General Family Medicine 09/08/21 Ariel Christiansen MD Consulting Physician Cardiovascular Disease - Cardiology 07/19/[address] [place] [address] [facility] [address] [place] [address] Boxing And Pressing Supervisor Pulmonary Disease 06/18/20 Keny Saldaña APRN, SCALE TESTER #[address] [address] Nurse Practitioner Advanced Practice Nurse 09/08/21 Cristian Dewitt MD #[address] [address] Consulting Physician Cardiovascular Disease - Cardiology 10/06/21 02/07/24 Ale Spain, RN [place] Lean Sensei 03/15/22 02/12/23 Ale Spain, RN [place] Nurse Lean Sensei 03/15/22 02/13/23 Yamel Kurtz III, MD #2 [place] [address] Consulting Physician Urology 09/11/22 Raghu Green MD #2 [place] [address] Consulting Physician Pulmonary Disease 01/04/22 Warren Osborn MD #[address] [address] Consulting Physician Colon and Rectal Surgery 05/21/23 Ale Spain, RN [place] Nurse Lean Sensei 09/05/23 Chetan Do MD #[address] [phone] Consulting Physician Endocrinology 01/23/24 documented as of this encounter
--- OUTSIDE RECORDS SUMMARY | 2024-03-24 13:02 | XMS_ITS | Encounter Summary ---
Author Organization [facility] Address [address] [place] [address] Phone Care Team Providers Care Laminating Press Operator Name Role Phone Nicolas Greer MD Primary Care Provider [phone] Ariel Christiansen MD Unavailable [phone] Parmjit Vogel MD Unavailable [phone] Nicolas Greer MD Primary Care Provider [phone] Keny Saldaña APRN, HOOK AND EYE SEWING MACHINE OPERATOR Unavailable Cristian Dewitt MD Unavailable Ale Black RN Unavailable Unavailable Ale Spain RN Unavailable Unavailable Jerardo MCCANN MD, Courtney Unavailable [phone] Raghu Green MD Unavailable Warren Osborn MD Unavailable Ale Spain RN Unavailable Unavailable Chetan Do MD Unavailable Reason for Visit * Reason Comments Medication Refill Encounter Details Date Type Department Care Team (Late st Contact Info) Description 01/02/2020 Refill [facility] #2 [place] [address] Nicolas Greer MD #[address] [address] Medication Refill Social History Tobacco Use Types [...] Job Start Date Job End Date Retired [employer] Not on file Not on file Not on file COVID-19 Exposure Response Date Recorded In the last month, have you been in contact with someone who was confirmed or suspected to have Coronavirus / COVID-19? No / Unsure 12/11/2019 11:15 AM CAREER RESOURCE TECHNICIAN documented as of this encounter Miscellaneous Notes * Telephone Encounter - Ivanna England RN - 01/02/2020 2:52 PM CST Sent to PCP ER RESOURCE TECHNICIAN * Telephone Encounter - Ivanna England RN - 01/02/2020 2:50 PM CST Per nursing clinical judgement, provider to review and approve the medication(s) order(s) if appropriate. Last OV 10/14/19, F/U None, Last Rx Benzonatate 11/11/19, Lovastatin 12/16/2018 Ivanna HAAS Requested Prescriptions Pending Prescriptions Disp Refills benzonatate (TESSALON) 100 MG Capsule [Pharmacy Med Name: Benzonatate 100 MG Oral Capsule] 30 Cap 0 Sig: Take 1 capsule by mouth three times daily as needed for cough Not Delegated - Ear, Nose, and Throat: Antitussives/Expectorants Failed - 01/02/2020 2:45 PM Failed - This refill cannot be delegated Passed - Valid encounter within last 12 months Past Office Visits Recent Outpatient Visits 2 months ago Hyperlipidemia, unspecified hyperlipidemia type [facility] - Nicolas Waters MD 5 months ago Pulmonary emphysema, unspecified emphysema type (HCC) [facility] - Keny Crowder APN, MARY 7 months ago Ptosis of both eyelids [facility] - Keny Crowder APN, MARY 10 months ago Hypothyroidism, unspecified type [facility] Nicolas Waters MD 1 year ago Non-insulin dependent type 2 diabetes mellitus (HCC) [facility] Nicolas Waters MD Upcoming Appointments AUDIO TECHNICIAN - Recent and Past Visits Recent Visits Date Type Provider Dept 10/14/19 Office Visit Nicolas Greer MD [facility] 07/14/19 Office Visit Keny Saldaña APN, MARY [facility] 05/22/19 Telemedicine Keny Saldaña APN, CNP [facility] [place] 02/12/19 Office Visit Nicolas Greer MD [facility] 11/05/18 Office Visit Nicolas Greer MD [facility] Showing recent visits within past 460 days with a meds authorizing provider and meeting all other requirements Future Appointments No visits were found meeting these conditions. Showing future appointments within next 90 days with a meds authorizing provider and meeting all other requirements lovastatin (MEVACOR) 40 MG Tablet [Pharmacy Med Name: Lovastatin 40 MG Oral Tablet] 45 Tab 0 Sig: TAKE 1/2 (ONE-HALF) TABLET BY MOUTH ONCE DAILY Cardiovascular: Antilipid - HMG-CoA Reductase Inhibitors Passed - 01/02/2020 2:45 PM Passed - Valid encounter within last 12 months Past Office Visits Recent Outpatient Visits 2 months ago Hyperlipidemia, unspecified hyperlipidemia type [facility] Nicolas Waters MD 5 months ago Pulmonary emphysema, unspecified emphysema type (HCC) [facility] - Keny Crowder APN, MARY 7 months ago Ptosis of both eyelids [facility] [place]y Vigil APN, HOOK AND EYE SEWING MACHINE OPERATOR 10 months ago Hypothyroidism, unspecified type [facility] - Nicolas Waters MD 1 year ago Non-insulin dependent type 2 diabetes mellitus (HCC) [facility] - Nicolas Waters MD Upcoming Appointments AUDIO TECHNICIAN - Recent and Past Visits Recent Visits Date Type Provider Dept 10/14/19 Office Visit Nicolas Greer MD [facility] [place] 07/14/19 Office Visit Keny Saldaña APN, HOOK AND EYE SEWING MACHINE OPERATOR [facility] Telemedicine Keny Saldaña APN, HOOK AND EYE SEWING MACHINE OPERATOR [facility] 02/12/19 [facility] 11/05/18 Office Visit Nicolas Greer MD [facility] Showing recent visits within past 460 days with a meds authorizing provider and meeting all other requirements Future Appointments No visits were found meeting these conditions. Showing future appointments within next 90 days with a meds authorizing provider and meeting all other requirements ER RESOURCE TECHNICIAN documented in this encounter Plan of Treatment Upcoming Encounters Date Type Department Care Team (Late st Contact Info) Description 04/24/2024 2:00 PM CDT Office Visit [facility] Medical [facility] - Endocrinology - [place] #2 [place] [phone] Chetan Do MD #[address] [address] 08/14/2024 1:00 PM CDT Office Visit [facility] - Pulmonology & Sleep Medicine - [place] #2 [place] [address] Raghu Green MD #2 [place] [address] 09/17/2024 1:00 PM CDT Office Visit [facility] #2 [place] [address] Nicolas Greer MD #[address] [address] documented as of this encounter Visit Diagnoses Diagnosis Pulmonary emphysema, unspecified emphysema type (HCC) documented in this encounter Additional Health Concerns Infection Onset Date Last Indicated Resolved Time COVID - 19 03/11/2020 03/11/2020 03/31/2020 12:1 8 AM CAREER RESOURCE TECHNICIAN COVID - 19 09/02/2021 09/02/2021 09/03/2021 2:05 PM CDT COVID - 19 12/24/2021 12/24/2021 12/26/2021 8:07 AM CAREER RESOURCE TECHNICIAN Respiratory Rule Out - RPA 12/24/2021 12/24/2021 1 02/24/2021 4:41 PM CAREER RESOURCE TECHNICIAN Influenza 12/24/2021 12/24/2021 12/31/2021 12:1 6 AM CAREER RESOURCE TECHNICIAN Assessment Noted Time PHQ-9 Depression Total Score: 0 02/12/19 10:45 AM CAREER RESOURCE TECHNICIAN documented as of this encounter Care Teams Laminating Press Operator Relationship Specialty Start Date End Date Nicolas Greer MD #[address] [address] PCP - General Family Medicine 12/22/14 09/07/21 Nicolas Greer MD #[address] [address] PCP - General Family Medicine 09/08/21 Ariel Christiansen MD #[address] [address] Consulting Physician Cardiovascular Disease - Cardiology 07/19/16 [place] [address] [facility] [address] [place] [address] [place] Pulmonary Disease 06/18/20 Keny Saldaña APRN, HOOK AND EYE SEWING MACHINE OPERATOR #[address] [address] Nurse Practitioner Advanced Practice Nurse 09/08/21 Cristian Dewitt MD #[address] [address] Consulting Physician Cardiovascular Disease - Cardiology 10/06/21 02/07/24 Ale Spain, RN [place] Chemistry Laboratory Technician 03/15/22 02/12/23 Ale Spain, RN [place] Nurse Chemistry Laboratory Technician 03/15/22 02/13/23 Yamel Kurtz III, MD #2 [place] [address] Consulting Physician Urology 09/11/22 Raghu Green MD #2 [place] [address] Consulting Physician Pulmonary Disease 01/04/22 Warren Osborn MD #[address] [address] Consulting Physician Colon and Rectal Surgery 05/21/23 Ale Spain, RN [place] Nurse Chemistry Laboratory Technician 09/05/23 Chetan Do MD #[address] [phone] Consulting Physician Endocrinology 01/23/24 documented as of this encounter
--- OUTSIDE RECORDS SUMMARY | 2024-03-24 13:02 | XMS_ITS | Encounter Summary ---
Author Organization [facility] Address [address] [place] [address] Phone Care Team Providers Care Conference Planner Name Role Phone Nicolas Greer MD Primary Care Provider [phone] Ariel Christiansen MD Unavailable [phone] Parmjit Vogel MD Unavailable [phone] Nicolas Greer MD Primary Care Provider [phone] Keny Saldaña APRN, HOT PLATE [place] PRESS FEEDER Unavailable Cristian Dewitt MD Unavailable Ale Black RN Unavailable Unavailable Ale Spain RN Unavailable Unavailable Jerardo MCCANN MD, Courtney Unavailable [phone] Raghu Green MD Unavailable Warren Osborn MD Unavailable Ale Spain RN Unavailable Unavailable Chetan Do MD Unavailable Reason for Visit * Reason Comments Medication Refill Encounter Details Date Type Department Care Team (Late st Contact Info) Description 05/26/[facility] [address] [place], [place] [id number] Nicolas Greer MD #[address] [address] Medication Refill Social History Tobacco Use Types Packs/Day Years Used Date Smoking Tobacco: Light Smoker Cigarettes 0.5 50 Smokeless Tobacco: Never Comments:1/2 [...] Job Start Date Job End Date Retired [employer] Not on file Not on file Not on file documented as of this encounter Miscellaneous Notes * Telephone Encounter - Jocelyn Cavazos RN - 05/26/2019 9:55 AM CDT Requested Prescriptions Pending Prescriptions Disp Refills sertraline (ZOLOFT) 50 MG Tablet [Pharmacy Med Name: Sertraline HCl 50 MG Oral Tablet] 90 Tab 2 Sig: Take 1 tablet by mouth once daily Not Delegated - Psychiatry: Antidepressants Failed - 05/26/2019 9:39 AM Failed - This refill cannot be delegated Passed - Valid encounter within last 12 months Past Office Visits Recent Outpatient Visits 3 months ago Hypothyroidism, unspecified type [facility] Nicolas Greer MD 6 months ago Non-insulin dependent type 2 diabetes mellitus (HCC) [facility] Nicolas Greer MD 9 months ago Chronic cough [facility] Nicolas Greer MD 1 year ago Cough [facility] Nicolas Greer MD 1 year ago Bronchitis [facility] Keny Saldaña APN, HOT PLATE [place] PRESS FEEDER Upcoming Appointments documented in this encounter Plan of Treatment Upcoming Encounters Date Type Department Care Team (Late st Contact Info) Description 04/24/2024 2:00 PM CDT Office Visit [facility] Medical [facility] - Endocrinology - [place] [address] [place] [address] Chetan Do MD #2 [facility] [address] [place] [address] 08/14/2024 1:00 PM CDT Office Visit [facility] Medical [facility] - Pulmonology & Sleep Medicine - [place] #[address] [place] [address] Raghu Green MD #2 [place] [address] 09/17/2024 1:00 PM CDT Office Visit [facility] Medical [facility] - Family Medicine - [place] #2 [place] [address] Nicolas Greer MD #2 [facility] [address] [place] [address] documented as of this encounter Visit Diagnoses Diagnosis Depression with anxiety Dysthymic disorder documented in this encounter Additional Health Concerns Infection Onset Date Last Indicated Resolved Time COVID - 19 10/14/2019 10/14/2019 10/17/2019 10:5 9 AM CDT COVID - 19 03/11/2020 03/11/2020 03/31/2020 12:1 8 AM ORDER CALLER COVID - 19 09/02/2021 09/02/2021 09/03/2021 2:05 PM CDT COVID - 19 12/24/2021 12/24/2021 12/26/2021 8:07 AM ORDER CALLER Respiratory Rule Out - RPA 12/24/2021 12/24/2021 1 02/24/2021 4:41 PM ORDER CALLER Influenza 12/24/2021 12/24/2021 12/31/2021 12:1 6 AM ORDER CALLER Assessment Noted Time PHQ-9 Depression Total Score: 0 02/12/19 20 10:45 AM ORDER CALLER documented as of this encounter Care Teams Conference Planner Relationship Specialty Start Date End Date Nicolas Greer MD #[address] [address] PCP - General Family Medicine 12/22/14 09/07/21 Nicolas Greer MD #[address] [address] PCP - General Family Medicine 09/08/21 Ariel Christiansen MD #[address] [address] Consulting Physician Cardiovascular Disease - Cardiology 07/19/16 [place] [address] [address] Technology Applications Consultant Pulmonary Disease 06/18/20 Keny Saldaña APRN, HOT PLATE PLYWOOD PRESS FEEDER #[address] [address] Nurse Practitioner Advanced Practice Nurse 09/08/21 Cristian Dewitt MD #[address] [address] Consulting Physician Cardiovascular Disease - Cardiology 10/06/21 02/07/24 Ale Spain, RN [place] Short Story Writer 03/15/22 02/12/23 Ale Spain, RN [place] Nurse Short Story Writer 03/15/22 02/13/23 Yamel Kurtz III, MD #2 [place] [address] Consulting Physician Urology 09/11/22 Raghu Green MD #2 [place] [address] Consulting Physician Pulmonary Disease 01/04/22 Warren Osborn MD #[address] [id number] Consulting Physician Colon and Rectal Surgery 05/21/23 Ale Spain, [place] Nurse Short Story Writer 09/05/23 Chetan Do MD #[address] [address] Consulting Physician Endocrinology 01/23/24 documented as of this encounter
--- OUTSIDE RECORDS SUMMARY | 2024-03-24 13:02 | XMS_ITS | Encounter Summary ---
Author Organization [facility] Address [address] [place] [address] Phone Care Team Providers Care Jumpbasting Canvas Baster Name Role Phone Nicolas Greer MD Primary Care Provider [phone] Ariel Christiansen MD Unavailable [phone] Parmjit Vogel MD Unavailable [phone] Nicolas Greer MD Primary Care Provider [phone] Keny Saldaña APRN, HOUSE MOVER Unavailable Cristian Dewitt MD Unavailable Ale Black RN Unavailable Unavailable Ale Spain RN Unavailable Unavailable Jerardo MCCANN MD, Courtney Unavailable [phone] Raghu Green MD Unavailable Warren Osborn MD Unavailable Ale Spain RN Unavailable Unavailable Chetan Do MD Unavailable Encounter Details Date Type Department Care Team (Late st Contact Info) Description 09/06/2021 Home Health Resumpti on of Care [facility] [address] [place] [address] Social History Tobacco Use Types Packs/Day Years [...] Job Start Date Job End Date Retired [employer] Not on file Not on file Not on file COVID-19 Exposure Response Date Recorded In the last 10 days, have yo u been in contact with someone who was confirmed or suspected to have Coronavirus/COVID-19? No / Unsure 09/08/2021 12:26 PM CDT documented as of this encounter Plan of Treatment Upcoming Encounters Date Type Department Care Team (Late st Contact Info) Description 04/24/2024 2:00 PM CDT Office Visit [facility] Medical Group - Endocrinology [facility] #2 [place] [address] Chetan Do MD #[address] [phone] 08/14/2024 1:00 PM CDT Office Visit [facility] - Pulmonology & Sleep Medicine [facility] #2 [place] [address] Raghu Green MD #2 [place] [address] 09/17/2024 1:00 PM CDT [facility] - [place] #2 [place] [address] Nicolas Greer MD #[address] [address] documented as of this encounter Visit Diagnoses Not on filedocumented in this encounter Additional Health Concerns Infection Onset Date Last Indicated Resolved Time COVID - 19 12/24/2021 12/24/2021 12/26/2021 8:07 AM DIVISION OPERATIONS SPECIALIST Respiratory Rule Out - RPA 12/24/2021 12/24/2021 1 02/24/2021 4:41 PM DIVISION OPERATIONS SPECIALIST Influenza 12/24/2021 12/24/2021 12/31/2021 12:1 6 AM DIVISION OPERATIONS SPECIALIST Assessment Noted Time PHQ-9 Depression Total Score: 0 02/12/19 10:45 AM DIVISION OPERATIONS SPECIALIST documented as of this encounter Care Teams Jumpbasting Canvas Baster Relationship Specialty Start Date End Date Nicolas Greer MD #[address] [address] PCP - General Family Medicine 12/22/14 09/07/21 Nicolas Greer MD #[address] [address] PCP - General Family Medicine 09/08/21 Ariel Christiansen MD #[address] [address] Consulting Physician Cardiovascular Disease - Cardiology 07/19/16 [place] [address] [address] Education Finance Processor Pulmonary Disease 06/18/20 Keny Saldaña APRN, HOUSE MOVER #[address] [address] Nurse Practitioner Advanced Practice Nurse 09/08/21 Cristian Dewitt MD #[address] [address] Consulting Physician Cardiovascular Disease - Cardiology 10/06/21 02/07/24 Ale Spain, RN [place] Applications Developer 03/15/22 02/12/23 Ale Spain, RN [place] Nurse Applications Developer 03/15/22 02/13/23 Yamel Kurtz III, MD #2 [place] [address] Consulting Physician Urology 09/11/22 Raghu Green MD #2 [place] [address] Consulting Physician Pulmonary Disease 01/04/22 Warren Osborn MD #[address] [address] Consulting Physician Colon and Rectal Surgery 05/21/23 Ale Spain, [place] Nurse Applications Developer 09/05/23 Chetan Do MD #[address] [address] Consulting Physician Endocrinology 01/23/24 documented as of this encounter
--- OUTSIDE RECORDS SUMMARY | 2024-03-24 13:02 | XMS_ITS | Encounter Summary ---
Author Organization [facility] Address [address] [place] [address] Phone Care Team Providers Care Bakery Team Leader Name Role Phone Nicolas Greer MD Primary Care Provider [phone] Ariel Christiansen MD Unavailable [phone] Parmjit Vogel MD Unavailable [phone] Nicolas Greer MD Primary Care Provider [phone] Keny Saldaña APRN, ADVISORY APPLICATION DEVELOPER Unavailable Cristian Dewitt MD Unavailable Ale Black RN Unavailable Unavailable Ale Spain RN Unavailable Unavailable Jerardo MCCANN MD, Courtney Unavailable [phone] Raghu Green MD Unavailable Warren Osborn MD Unavailable Ale Spain RN Unavailable Unavailable Chetan Do MD Unavailable Encounter Details Date Type Department Care Team (Late st Contact Info) Description 09/06/2021 Telephone [facility] Med Surg [address] [place] [address] Tierney Merritt RN [place] Social History Tobacco Use Types Packs/Day Years [...] Job Start Date Job End Date Retired [employer] Not on file Not on file Not on file COVID-19 Exposure Response Date Recorded In the last 10 days, have yo u been in contact with someone who was confirmed or suspected to have Coronavirus/COVID-19? No / Unsure 09/08/2021 12:26 PM CDT documented as of this encounter Miscellaneous Notes * Telephone Encounter - Tierney Merritt RN - 09/06/2021 4:00 PM CDT Called patient to follow up after recent discharge from [facility] Med-Surg Unit. How are you feeling? Patient states she is still having intermittent SOB, and has had increased incontinence. I attempted to educate the patient on bladder training, but patient was unreceptive and had family yelling andtalking in the back ground. I asked patient if I should call back at a later time, and she said no. Did you get your medications? Although patient did not have new medications ordered from hospital. Patient stated that she has not received her normal medication delivery. I called the pharmacy and they stated it was delayed due to patients discharge paper work not being sent to them. We got everything figured out and the medications will be there today Do you have the date of your follow up appointment? Yes- we even discussed the weather projected for that day, due to patient refusing to leave the house over 90 degrees. States it makes her not be able to breathe. Do you have a ride? Yes Have you heard from Home health? Patient states she has not hear from . This RN called and they stated they will be calling the patient shortly. What else can I do for you? Nothing at this time. documented in this encounter Plan of Treatment Upcoming Encounters Date Type Department Care Team (Late st Contact Info) Description 04/24/2024 2:00 PM CDT Office Visit [facility] Medical Group - Endocrinology - [place] #2 [place] [address] Chetan Do MD #[address] [place] [address] 08/14/2024 1:00 PM CDT Office Visit [facility] Medical [facility] - Pulmonology & Sleep Medicine - [place] #2 [place] [address] Raghu Green MD #2 [place] [address] 09/17/2024 1:00 PM CDT Office Visit [facility] Medical [facility] - Family Medicine - [place] #2 [facility] [address] Nicolas Greer MD #[address] [place] [address] documented as of this encounter Visit Diagnoses Not on filedocumented in this encounter Additional Health Concerns Infection Onset Date Last Indicated Resolved Time COVID - 19 12/24/2021 12/24/2021 12/26/2021 8:07 AM SHELLAC POLISHER Respiratory Rule Out - RPA 12/24/2021 12/24/2021 1 02/24/2021 4:41 PM SHELLAC POLISHER Influenza 12/24/2021 12/24/2021 12/31/2021 12:1 6 AM SHELLAC POLISHER Assessment Noted Time PHQ-9 Depression Total Score: 0 02/12/19 10:45 AM SHELLAC POLISHER documented as of this encounter Care Teams Bakery Team Leader Relationship Specialty Start Date End Date Nicolas Greer MD #[address] [address] PCP - General Family Medicine 12/22/14 09/07/21 Nicolas Greer MD #[address] [address] PCP - General Family Medicine 09/08/21 Ariel Christiansen MD #[address] [address] Consulting Physician Cardiovascular Disease - Cardiology 07/19/16 [place] [address] [address] Chief Engineer'S Helper Pulmonary Disease 06/18/20 Keny Saldaña APRN, ADVISORY APPLICATION DEVELOPER #[address] [address] Nurse Practitioner Advanced Practice Nurse 09/08/21 Cristian Dewitt MD #[address] [address] Consulting Physician Cardiovascular Disease - Cardiology 10/06/21 02/07/24 Ale Spain, RN [place] Family Medicine Resident 03/15/22 02/12/23 Ale Spain, RN [place] Nurse Family Medicine Resident 03/15/22 02/13/23 Yamel Kurtz III, MD #2 [place] [address] Consulting Physician Urology 09/11/22 Raghu Green MD #2 [place] [address] Consulting Physician Pulmonary Disease 01/04/22 Warren Osborn MD #[address] [address] Consulting Physician Colon and Rectal Surgery 05/21/23 Ale Spain, [place] Nurse Family Medicine Resident 09/05/23 Chetan Do MD #[address] [address] Consulting Physician Endocrinology 01/23/24 documented as of this encounter
--- OUTSIDE RECORDS SUMMARY | 2024-03-24 13:02 | XMS_ITS | Encounter Summary ---
Author Organization [facility] Address [address] [place] [place] [address] Phone Care Team Providers Care 3D Specialist Name Role Phone Nicolas Greer MD Primary Care Provider [phone] Ariel Christiansen MD Unavailable [phone] Parmjit Vogel MD Unavailable [phone] Nicolas Greer MD Primary Care Provider [phone] Keny Saldaña APRN, RUSSIAN HISTORY PROFESSOR Unavailable Cristian Dewitt MD Unavailable Ale Black RN Unavailable Unavailable Ale Spain RN Unavailable Unavailable Jerardo MCCANN MD, Courtney Unavailable [phone] Raghu Geren MD Unavailable Warren Osborn MD Unavailable Ale Spain RN Unavailable Unavailable Chetan Do MD Unavailable Reason for Visit * Reason Comments Medication Refill Encounter Details Date Type Department Care Team (Late st Contact Info) Description [facility] [address] [place], [place] [phone] Nicolas Greer MD #[address] [address] Medication Refill Social History Tobacco Use Types [...] Job Start Date Job End Date Retired [employer] Not on file Not on file Not on file documented as of this encounter Miscellaneous Notes * Telephone Encounter - Jocelyn Cavazos RN - 04/30/2019 2:46 PM CDT Requested Prescriptions Pending Prescriptions Disp Refills levothyroxine (SYNTHROID) 137 MCG Tablet [Pharmacy Med Name: Levothyroxine Sodium 137 MCG Oral Tablet] 90 Tab 2 Sig: Take 1 tablet by mouth daily Endocrinology: Hypothyroid Agents Failed - 04/30/2019 2:45 PM Failed - TSH in normal range and within 360 days TSH Date Value Ref Range Status 11/28/2016 0.841 0.270 - 4.200 mIU/L Final Passed - Valid encounter within last 12 months Past Office Visits Recent Outpatient Visits 2 months ago Hypothyroidism, unspecified type [facility] Nicolas Greer MD 5 months ago Non-insulin dependent type 2 diabetes mellitus (HCC) [facility] Nicolas Greer MD 9 months ago Chronic cough [facility] Nicolas Greer MD 1 year ago Cough [facility] Nicolas Greer MD 1 year ago Bronchitis [facility] Keny Saldaña, ROVING SIZER, RUSSIAN HISTORY PROFESSOR Upcoming Appointments allopurinol (ZYLOPRIM) 100 MG Tablet [Pharmacy Med Name: Allopurinol 100 MG Oral Tablet] 180 Tab 2 Sig: Take 2 tablets by mouth once daily Endocrinology: Gout Agents Passed - 04/30/2019 2:45 PM Passed - Valid encounter within last 12 months Past Office Visits Recent Outpatient Visits 2 months ago Hypothyroidism, unspecified type [facility] Nicolas Greer MD 5 months ago Non-insulin dependent type 2 diabetes mellitus (HCC) [facility] Nicolas Greer MD 9 months ago Chronic cough [facility] Nicolas Greer MD 1 year ago Cough [facility] Nicolas Greer MD 1 year ago Bronchitis [facility] Keny Saldaña ROVING SIZER, RUSSIAN HISTORY PROFESSOR Upcoming Appointments documented in this encounter Plan of Treatment Upcoming Encounters Date Type Department Care Team (Late st Contact Info) Description 04/24/2024 2:00 PM CDT Office Visit [facility] - Endocrinology [facility] #2 [place] [address] Chetan Do MD #[address] [address] 08/14/2024 1:00 PM CDT Office Visit [facility] - Pulmonology & Sleep Medicine [facility] #2 [place] [address] Raghu Green MD #2 [place] [address] 09/17/2024 1:00 PM CDT Office Visit [facility] - Family Medicine [facility] #2 [place] [address] Nicolas Greer MD #[address] [address] documented as of this encounter Visit Diagnoses Not on filedocumented in this encounter Additional Health Concerns Infection Onset Date Last Indicated Resolved Time COVID - 19 10/14/2019 10/14/2019 10/17/2019 10:5 9 AM CDT COVID - 19 03/11/2020 03/11/2020 03/31/2020 12:1 8 AM HUMIDIFIER MAINTENANCE WORKER COVID - 19 09/02/2021 09/02/2021 09/03/2021 2:05 PM CDT COVID - 19 12/24/2021 12/24/2021 12/26/2021 8:07 AM HUMIDIFIER MAINTENANCE WORKER Respiratory Rule Out - RPA 12/24/2021 12/24/2021 1 02/24/2021 4:41 PM HUMIDIFIER MAINTENANCE WORKER Influenza 12/24/2021 12/24/2021 12/31/2021 12:1 6 AM HUMIDIFIER MAINTENANCE WORKER Assessment Noted Time PHQ-9 Depression Total Score: 0 02/12/19 10:45 AM HUMIDIFIER MAINTENANCE WORKER documented as of this encounter Care Teams 3D Specialist Relationship Specialty Start Date End Date Nicolas Greer MD #[address] [address] PCP - General Family Medicine 12/22/14 09/07/21 Nicolas Greer MD #[address] [address] PCP - General Family Medicine 09/08/21 Ariel Christiansen MD #[address] [address] Consulting Physician Cardiovascular Disease - Cardiology 07/19/16 [place] [address] [address] Hydrogen Braze Furnace Operator Pulmonary Disease 06/18/20 Keny Saldaña APRN, RUSSIAN HISTORY PROFESSOR #[address] [address] Nurse Practitioner Advanced Practice Nurse 09/08/21 Cristian Dewitt MD #[address] [address] Consulting Physician Cardiovascular Disease - Cardiology 10/06/21 02/07/24 Ale Spain, RN [place] Property Insurance Inspector 03/15/22 02/12/23 Ale Spain, RN [place] Nurse Property Insurance Inspector 03/15/22 02/13/23 Yamel Kurtz III, MD #2 [place] [address] Consulting Physician Urology 09/11/22 Raghu Green MD #2 [place] [address] Consulting Physician Pulmonary Disease 01/04/22 Warren Osborn MD #[address] [address] Consulting Physician Colon and Rectal Surgery 05/21/23 Ale Spain, RN [place] Nurse Property Insurance Inspector 09/05/23 Chetan Do MD #[address] [address] Consulting Physician Endocrinology 01/23/24 documented as of this encounter
--- OUTSIDE RECORDS SUMMARY | 2024-03-24 13:02 | XMS_ITS | Encounter Summary ---
Author Organization [facility] Address [address] [place] [address] Phone Care Team Providers Care Feed Handler Name Role Phone Ariel Christiansen MD Unavailable [phone] Parmjit Vogel MD Unavailable [phone] Nicolas Greer MD Primary Care Provider [phone] Keny Saldaña APRN, MAIN ENTREE COOK AND CASHIER Unavailable Cristian Dewitt MD Unavailable Unaruslani Ale Richard RN Unavailable Unavailable Ale Spain RN Unavailable Unavailable Jerardo MCCANN MD, Courtney Unavailable [phone] Raghu Green MD Unavailable Warren Osborn MD Unavailable Ale Spain RN Unavailable Unavailable Chetan Do MD Unavailable Encounter Details Date Type Department Care Team (Late st Contact Info) Description 02/15/2022 Lab [facility] [address] [place] [id number] Nicolas Greer MD [address] [address] Anemia, unspecified Social History Tobacco Use Types [...] Job Start Date Job End Date Retired [employer] Not on file Not on file Not on file COVID-19 Exposure Response Date Recorded In the last 10 days, have yo u been in contact with someone who was confirmed or suspected to have Coronavirus/COVID-19? No / Unsure 02/15/2022 10:32 AM MERCURY CELL CLEANER documented as of this encounter Plan of Treatment Upcoming Encounters Date Type Department Care Team (Late st Contact Info) Description 04/24/2024 2:00 PM CDT Office Visit [facility] - Endocrinology - [place] #2 [place] [address] Chetan Do MD #[address] [address] 08/14/2024 1:00 PM CDT Office Visit [facility] - Pulmonology & Sleep Medicine [facility] #2 [place] [address] Raghu Green MD #2 [place] [address] 09/17/2024 1:00 PM CDT Office Visit [facility] - [place] #2 [place] [address] Nicolas Greer MD [address] [address] documented as of this encounter Procedures Procedure Name Priority Date/Time Associated Diagnosis Comments CBC WITH AUTO DIFFERENTIAL Routine 02/15/2022 11:02 AM MERCURY CELL CLEANER Anemia, unspecified COMPLETE BLOOD COUNT (CBC) WITH DIFF Routine 02/15/2022 11:02 AM MERCURY CELL CLEANER Anemia, unspecified documented in this encounter Results * (ABNORMAL) CBC WITH AUTO DIFFERENTIAL (02/15/2022 11:02 AM MERCURY CELL CLEANER) WBC 6.92 4.00 - 12.00 10(3)/mcL 02/15/2022 1:16 PM [facility] RBC 3.85 3.80 - 5.30 10(6)/mcL 02/15/2022 1:16 PM [facility] HEMOGLOBIN (HGB) 11.9(L) 12.0 - 15.8 g/dL 02/15/2022 1:16 PM [facility] HEMATOCRIT (HCT) 38.3 36.0 - 47.0 % 02/15/2022 1:16 PM [facility] MCV 99.5(H) 82.0 - 96.0 fL 02/15/2022 1:16 PM [facility] MCH 30.9 26.0 - 34.0 pg 02/15/2022 1:16 PM [facility] MCHC 31.1 31.0 - 36.0 g/dL 02/15/2022 1:16 PM [facility] PLATELET COUNT 427 140 - 440 10(3)/mcL 02/15/2022 1:16 PM [facility] RDW 13.8 11.8 - 15.5 % 02/15/2022 1:16 PM [facility] MPV 9.6(L) 9.7 - 12.4 fL 02/15/2022 1:16 PM [facility] NEUTROPHILS 78.3(H) 47.0 - 73.0 % 02/15/2022 1:16 PM [facility] LYMPHOCYTES 13.6(L) 18.0 - 42.0 % 02/15/2022 1:16 PM [facility] MONOCYTES 6.6 4.0 - 12.0 % 02/15/2022 1:16 PM [facility] EOSINOPHILS 0.9 0.0 - 5.0 % 02/15/2022 1:16 PM [facility] BASOPHILS 0.6 0.0 - 1.0 % 02/15/2022 1:16 PM [facility] ABSOLUTE NEUTROPHILS 5.42 1.60 - 7.70 10(3)/[facility] 02/15/2022 1:16 PM [facility] ABSOLUTE LYMPHOCYTES 0.94(L) 1.30 - 3.20 10(3)/[facility] 02/15/2022 1:16 PM [facility] ABSOLUTE MONOCYTES 0.46 0.20 - 1.00 10(3)/[facility] 02/15/2022 1:16 PM [facility] ABSOLUTE EOSINOPHIL 0.06 0.00 - 0.40 10(3)/[facility] 02/15/2022 1:16 PM [facility] ABSOLUTE BASOPHILS 0.04 0.00 - 0.10 10(3)/[facility] 02/15/2022 1:16 PM [facility] NRBC PER 100 WBC 0 02/15/19 23 1:16 PM [facility] Blood No Phlebotomy Charged / Unknown 02/15/2022 11:02 AM MERCURY CELL CLEANER 02/15/2022 1:12 PM MERCURY CELL CLEANER us Nicolas Greer MD HEMATOLOGY ORDERABLES Final Result [facility] #1 [place] [address] documented in this encounter Visit Diagnoses Diagnosis Anemia, unspecified documented in this encounter Additional Health Concerns Assessment Noted Time PHQ-9 Depression Total Score: 0 02/12/19 20 10:45 AM MERCURY CELL CLEANER documented as of this encounter Care Teams Feed Handler Relationship Specialty Start Date End Date Nicolas Greer MD [address] [address] PCP - General Family Medicine 09/08/21 Ariel Christiansen MD Consulting Physician Cardiovascular Disease - Cardiology 07/19/16 [place] [id number] [address] Coating Inspector Pulmonary Disease 06/18/20 Keny Saldaña APRN, MAIN ENTREE COOK AND CASHIER #[address] [address] Nurse Practitioner Advanced Practice Nurse 09/08/21 Cristian Dewitt MD #[address] [address] Consulting Physician Cardiovascular Disease - Cardiology 10/06/21 02/07/24 Ale Spain, RN [place] Entry Level Web Developer 03/15/22 02/12/23 Ale Spain, RN [place] Nurse Entry Level Web Developer 03/15/22 02/13/23 Yamel Kurtz III, MD #2 [place] [address] Consulting Physician Urology 09/11/22 Raghu Green MD #2 [place] [address] Consulting Physician Pulmonary Disease 01/04/22 Warren Osborn MD #[address] [address] Consulting Physician Colon and Rectal Surgery 05/21/23 Ale Spain RN [place] Nurse Entry Level Web Developer 09/05/23 Chetan Do MD #[address] [address] Consulting Physician Endocrinology 01/23/24 documented as of this encounter
--- OUTSIDE RECORDS SUMMARY | 2024-03-24 13:02 | XMS_ITS | Encounter Summary ---
Author Organization [facility] Address [address] [place] [address] [place] [address] Phone Care Team Providers Care Automobile Dealer Name Role Phone Nicolas Greer MD Primary Care Provider [phone] Ariel Christiansen MD Unavailable [phone] Parmjit Vogel MD Unavailable [phone] Nicolas Greer MD Primary Care Provider [phone] Keny Saldaña APRN, WARDROBE COORDINATOR Unavailable Cristian Dewitt MD Unavailable Ale Black RN Unavailable Unavailable Ale Spain RN Unavailable Unavailable Jerardo MCCANN MD, Courtney Unavailable [phone] Raghu Green MD Unavailable Warren Osborn MD Unavailable Ale Spain RN Unavailable Unavailable Chetan Do MD Unavailable Reason for Visit * Reason Comments Medication Refill Encounter Details Date Type Department Care Team (Late st Contact Info) Description 07/29/2020 Refill [facility] #2 [place] [address] Nicolas Greer MD [address] [address] Medication Refill Social History Tobacco Use Types [...] Job Start Date Job End Date Retired [employer] Not on file Not on file Not on file documented as of this encounter Miscellaneous Notes * Telephone Encounter - Nicolle Funk RN - 07/30/2020 9:05 AM CDT Medication failed the protocol, provider to review and approve the medication order if appropriate. Requested Prescriptions Pending Prescriptions Disp Refills benzonatate (TESSALON) 100 MG Capsule [Pharmacy Med Name: Benzonatate 100 MG Oral Capsule] 30 Capsule 0 Sig: Take 1 capsule by mouth three times daily as needed for cough [facility] Not Delegated - Ear, Nose, and Throat: Antitussives/Expectorants Failed - 07/30/2020 9:03 AM Failed - This refill cannot be delegated Passed - Valid encounter within last 12 months Past Office Visits Recent Outpatient Visits 1 month ago COPD exacerbation (HCC) [facility] - Nicolas Waters MD 1 month ago SOB (shortness of breath) [facility] - Nicolas Waters MD 4 months ago Chronic obstructive pulmonary disease, unspecified COPD type (HCC) [facility] - Nicolas Waters MD 9 months ago Hyperlipidemia, unspecified hyperlipidemia type [facility] - Nicolas Waters MD 1 year ago Pulmonary emphysema, unspecified emphysema type (HCC) [facility] Keny Crowder APN, MARY Upcoming Appointments Future Appointments In 1 month Nicolas Greer MD [facility] Adela Betancourt [facility] - Recent and Past Visits Recent Visits Date Type Provider Dept 06/21/20 Office Visit Nicolas Greer MD [facility] 06/08/20 Office Visit Nicolas Greer MD [facility] 03/11/20 Office Visit Nicolas Greer MD [facility] 10/14/19 Office Visit Nicolas Greer MD [facility] 07/14/19 Office Visit Keny Saldaña APN, CNP [facility] 05/22/19 Telemedicine Keny Saldaña APN, MARY [facility] Show[facility] recent visits within past 460 days with a meds authorizing provider and meeting all other requirements Future Appointments Date Type Provider Dept 09/22/20 Appointment Nicolas Greer MD [facility] Showing future appointments within next 90 days with a meds authorizing provider and meeting all other requirements allopurinol (ZYLOPRIM) 100 MG Tablet [Pharmacy Med Name: Allopurinol 100 MG Oral Tablet] 180 Tablet3 Sig: Take 2 tablets by mouth once daily [facility] Endocrinology: Gout Agents Passed - 07/30/2020 9:03 AM Passed - Valid encounter within last 12 months Past Office Visits Recent Outpatient Visits 1 month ago COPD exacerbation (HCC) [facility] Nicolas Waters MD 1 month ago SOB (shortness of breath) [facility] Nicolas Esquivel MD 4 months ago Chronic obstructive pulmonary disease, unspecified COPD type (HCC) [facility] Nicolas Esquivel MD 9 months ago Hyperlipidemia, unspecified hyperlipidemia type [facility] Nicolas Waters MD 1 year ago Pulmonary emphysema, unspecified emphysema type (HCC) [facility] [place] Vigil APN, CNP Upcoming Appointments Future Appointments In 1 month Nicolas Greer MD [facility] Serafin [facility] - Recent and Past Visits Recent Visits Date Type Provider Dept 06/21/20 Office Visit Nicolas Greer MD [facility] 06/08/20 Office Visit Nicolas Greer MD [facility] 03/11/20 Office Visit Nicolas Greer MD [facility] 10/14/19 Office Visit Nicolas Greer MD [facility] 07/14/19 Office Visit Keny Saldaña APN, CNP [facility] 05/22/19 Telemedicine Keny Saldaña APN, CNP [facility] Showing recent visits within past 460 days with a meds authorizing provider and meeting all other requirements Future Appointments Date Type Provider Dept 09/22/20 Appointment Nicolas Greer MD [facility] Showing future appointments within next 90 days with a meds authorizing provider and meeting all other requirements potassium chloride CR (KLORCON) 10 MEQ Tablet Controlled Release [Pharmacy Med Name: Potassium Chloride ER 10 MEQ Oral Tablet Extended Release] 180 Tablet 3 Sig: TAKE 2 TABLETS BY MOUTH DAILY [facility] Endocrinology: Minerals - Potassium Supplementation Passed - 07/30/2020 9:03 AM Passed - Valid encounter within last 12 months Past Office Visits Recent Outpatient Visits 1 month ago COPD exacerbation (HCC) [facility] Nicolas Waters MD 1 month ago SOB (shortness of breath) [facility] Nicolas Waters MD 4 months ago Chronic obstructive pulmonary disease, unspecified COPD type (HCC) [facility] Nicolas Esquivel MD 9 months ago Hyperlipidemia, unspecified hyperlipidemia type [facility] Nicolas Waters MD 1 year ago Pulmonary emphysema, unspecified emphysema type (HCC) [facility] Keny Crowder APN, CNP Upcoming Appointments Future Appointments In 1 month Nicolas Greer MD [facility] - Family Medicine - [place], [facility] - Recent and Past Visits Recent Visits Date Type Provider Dept 06/21/20 Office Visit Nicolas Greer MD [facility] 06/08/20 Office Visit Nicolas Greer MD [facility] 03/11/20 Office Visit Nicolas Greer MD [facility] 10/14/19 Office Visit Nicolas Greer MD [facility] 07/14/19 Office Visit Keny Saldaña APN, MARY [facility] 05/22/19 Telemedicine Keny Saldaña APN, MARY [facility] Showing recent visits within past 460 days with a meds authorizing provider and meeting all other requirements Future Appointments Date Type Provider Dept 09/22/20 Appointment Nicolas Greer MD [facility] Showing future appointments within next 90 days with a meds authorizing provider and meeting all other requirements Glucose Blood (OneTouch Ultra) Strip [Pharmacy Med Name: OneTouch Ultra Blue In Vitro Strip] 200 Each 0 Sig: USE 1 STRIP TO CHECK GLUCOSE TWICE DAILY There is no refill protocol information for this order levothyroxine (SYNTHROID) 137 MCG Tablet 90 Tablet 3 Sig: Take 1 Tablet by mouth daily. Thyroid Hormones Protocol Passed - 07/30/2020 9:03 AM Passed - Visit with relevant provider [...] 03/11/2020 0.524 0.270 - 4.200 mIU/L Final Refused Prescriptions Disp Refills Euthyrox 137 MCG Tablet [Pharmacy Med Name: Euthyrox 137 MCG Oral Tablet] 90 Tablet 0 Sig: Take 1 tablet by mouth once daily Thyroid Hormones Protocol Passed - 07/30/2020 9:03 AM Passed - Visit with relevant provider [...] 03/11/2020 0.524 0.270 - 4.200 mIU/L Final documented in this encounter Plan of Treatment Upcoming Encounters Date Type Department Care Team (Late st Contact Info) Description 04/24/2024 2:00 PM CDT Office Visit [facility] Medical Group - Endocrinology - [place] #2 [place] [address] Chetan Do MD #[address] [address] 08/14/2024 1:00 PM CDT Office Visit [facility] Medical [facility] - Pulmonology & Sleep Medicine - [place] #[address] [place] [address] Raghu Green MD #2 [place] [address] 09/17/2024 1:00 PM CDT Office Visit [facility] - Family [facility] #2 [place] [address] Nicolas Greer MD #[address] [address] documented as of this encounter Visit Diagnoses Diagnosis Pulmonary emphysema, unspecified emphysema type (HCC) Controlled type 2 diabetes mellitus without complication (HCC) documented in this encounter Additional Health Concerns Infection Onset Date Last Indicated Resolved Time COVID - 19 09/02/2021 09/02/2021 09/03/2021 2:05 PM CDT COVID - 19 12/24/2021 12/24/2021 12/26/2021 8:07 AM OYSTER WORKER Respiratory Rule Out - RPA 12/24/2021 12/24/2021 1 02/24/2021 4:41 PM OYSTER WORKER Influenza 12/24/2021 12/24/2021 12/31/2021 12:1 6 AM OYSTER WORKER Assessment Noted Time PHQ-9 Depression Total Score: 0 02/12/19 10:45 AM OYSTER WORKER documented as of this encounter Care Teams Automobile Dealer Relationship Specialty Start Date End Date Nicolas Greer MD #[address] [address] PCP - General Family Medicine 12/22/14 09/07/21 Nicolas Greer MD #[address] [address] PCP - General Family Medicine 09/08/21 Ariel Christiansen MD #[address] [address] Consulting Physician Cardiovascular Disease - Cardiology 07/19/16 [place] [address] [address] Investment Associate Pulmonary Disease 06/18/20 Keny Saldaña APRN, WARDROBE COORDINATOR #[address] [address] Nurse Practitioner Advanced Practice Nurse 09/08/21 Cristian Dewitt MD #[address] [address] Consulting Physician Cardiovascular Disease - Cardiology 10/06/21 02/07/24 Ale Spain, RN [place] Pneumatic Tube Repairer 03/15/22 02/12/23 Ale Spain, RN [place] Nurse Pneumatic Tube Repairer 03/15/22 02/13/23 Yamel Kurtz III, MD #2 [place] [address] Consulting Physician Urology 09/11/22 Raghu Green MD #2 [place] [address] Consulting Physician Pulmonary Disease 01/04/22 Warren Osborn MD #[address] [address] Consulting Physician Colon and Rectal Surgery 05/21/23 Ale Spain, RN [place] Nurse Pneumatic Tube Repairer 09/05/23 Chetan Do MD #[address] [phone] Consulting Physician Endocrinology 01/23/24 documented as of this encounter
--- OUTSIDE RECORDS SUMMARY | 2024-03-24 13:02 | XMS_ITS | Encounter Summary ---
Author Organization [facility] Address [address] [place] [address] Phone Care Team Providers Care Manager Of Allied Health Services Name Role Phone Nicolas Greer MD Primary Care Provider [phone] Ariel Christiansen MD Unavailable [phone] Parmjit Vogel MD Unavailable [phone] Nicolas Greer MD Primary Care Provider [phone] Keny Saldaña APRN, PRODUCTION MECHANIC TIN CANS Unavailable Cristian Dewitt MD Unavailable Ale Black RN Unavailable Unavailable Ale Spain RN Unavailable Unavailable Jerardo MCCANN MD, Courtney Unavailable [phone] Raghu Green MD Unavailable Warren Osborn MD Unavailable Ale Spain RN Unavailable Unavailable Chetan Do MD Unavailable Reason for Visit * Reason Comments Medication Refill Encounter Details Date Type Department Care Team (Late st Contact Info) Description 05/13/2019 [facility]ill [facility] [address] [place], [place] [id number] Nicolas Greer MD [address] [address] Medication Refill Social History Tobacco Use Types [...] Job Start Date Job End Date Retired [employer] Not on file Not on file Not on file documented as of this encounter Miscellaneous Notes * Telephone Encounter - Jocelyn Cavazos RN - 05/13/2019 11:18 AM CDT Requested Prescriptions Pending Prescriptions Disp Refills metFORMIN (GLUCOPHAGE) 500 MG Tablet [Pharmacy Med Name: metFORMIN HCl 500 MG Oral Tablet] 90 Tab 2 Sig: Take 1 tablet by mouth daily Endocrinology: Diabetes - Biguanides Failed - 05/13/2019 10:48 AM Failed - Last BP in normal range BP Readings from Last 1 Encounters: 02/12/19 144/90 Passed - Valid encounter within last 12 [...] Greer MD 1 year ago Bronchitis [facility] Keny Saldaña, INTERRELATED SPECIAL EDUCATION TEACHER, PRODUCTION MECHANIC TIN CANS Upcoming Appointments Glucose Blood (ONE TOUCH ULTRA TEST) Strip 200 Each 2 Sig: USE 1 STRIP TO CHECK GLUCOSE TWICE DAILY DX E11.9 Endocrinology: Diabetes Testing Supplies Passed - 05/13/2019 10:48 AM Passed - Valid encounter within last 12 months Past Office Visits Recent Outpatient Visits 3 months ago Hypothyroidism, unspecified type [facility] Nicolas Greer MD 6 months ago Non-insulin dependent type 2 diabetes mellitus (HCC) [facility] Nicolas Ceballos MD 9 months ago Chronic cough [facility] Nicolas Greer MD 1 year ago Cough [facility] Nicolas Greer MD 1 year ago Bronchitis [facility] FAMILY MED[facility] Keny Saldaña APN, PRODUCTION MECHANIC TIN CANS Upcoming Appointments Powered by [employer] - 05/13/2019 10:48 AM The requested medication is not on the active medication list. documented in this encounter Plan of Treatment Upcoming Encounters Date Type Department Care Team (Late st Contact Info) Description 04/24/2024 2:00 PM CDT Office Visit [facility] Medical [facility] - Endocrinology [facility] #2 [place] [address] Chetan Do MD #[address] [address] 08/14/2024 1:00 PM CDT Office Visit [facility] - Pulmonology & Sleep Medicine [facility] #2 [place] [address] Raghu Green MD #2 [place] [address] 09/17/2024 1:00 PM CDT Office Visit [facility] Medical [facility] Medicine [facility] #2 [place] [address] Nicolas Greer MD #[address] [address] documented as of this encounter Visit Diagnoses Diagnosis Controlled type 2 diabetes mellitus without complication (HCC) documented in this encounter Additional Health Concerns Infection Onset Date Last Indicated Resolved Time COVID - 19 10/14/2019 10/14/2019 10/17/2019 10:5 9 AM CDT COVID - 19 03/11/2020 03/11/2020 03/31/2020 12:1 8 AM DIRECTOR HOUSEKEEPING COVID - 19 09/02/2021 09/02/2021 09/03/2021 2:05 PM CDT COVID - 19 12/24/2021 12/24/2021 12/26/2021 8:07 AM DIRECTOR HOUSEKEEPING Respiratory Rule Out - RPA 12/24/2021 12/24/2021 1 02/24/2021 4:41 PM DIRECTOR HOUSEKEEPING Influenza 12/24/2021 12/24/2021 12/31/2021 12:1 6 AM DIRECTOR HOUSEKEEPING Assessment Noted Time PHQ-9 Depression Total Score: 0 02/12/19 10:45 AM DIRECTOR HOUSEKEEPING documented as of this encounter Care Teams Manager Of Allied Health Services Relationship Specialty Start Date End Date Nicolas Greer MD #[address] [address] PCP - General Family Medicine 12/22/14 09/07/21 Nicolas Greer MD #[address] [address] PCP - General Family Medicine 09/08/21 Ariel Christiansen MD #[address] [address] Consulting Physician Cardiovascular Disease - Cardiology 07/19/16 [place] [address] [address] Biochemistry Teacher Pulmonary Disease 06/18/20 Keny Saldaña APRN, PRODUCTION MECHANIC TIN CANS #[address] [address] Nurse Practitioner Advanced Practice Nurse 09/08/21 Cristian Dewitt MD #[address] [address] Consulting Physician Cardiovascular Disease - Cardiology 10/06/21 02/07/24 Ale Spain, RN [place] Paid Search Manager 03/15/22 02/12/23 Ale Spain, RN [place] Nurse Paid Search Manager 03/15/22 02/13/23 Yamel Kurtz III, MD #2 [place] [address] Consulting Physician Urology 09/11/22 Raghu Green MD #2 [place] [address] Consulting Physician Pulmonary Disease 01/04/22 Warren Osborn MD #[address] [address] Consulting Physician Colon and Rectal Surgery 05/21/23 Ale Spain, RN [place] Nurse Paid Search Manager 09/05/23 Chetan Do MD #[address] [phone] Consulting Physician Endocrinology 01/23/24 documented as of this encounter
--- OUTSIDE RECORDS SUMMARY | 2024-03-24 13:02 | XMS_ITS | Encounter Summary ---
Author Organization [facility] Address [address] [place] [address] Phone Care Team Providers Care Electron Beam Welding Machine Operator Name Role Phone Ariel Christiansen MD Unavailable [phone] Parmjit Vogel MD Unavailable [phone] Nicolas Greer MD Primary Care Provider [phone] Keny Saldaña APRN, BREAST SPLITTER Unavailable Cristian Dewitt MD Unavailable Unaruslani Ale Richard RN Unavailable Unavailable Ale Spain RN Unavailable Unavailable Jerardo MCCANN MD, Courtney Unavailable [phone] Raghu Green MD Unavailable Warren Osborn MD Unavailable Ale Spain RN Unavailable Unavailable Chetan Do MD Unavailable Encounter Details Date Type Department Care Team (Late st Contact Info) Description 02/16/2022 [facility] 1 [place] [phone] Nicolas Greer MD #[address] [address] Other fatigue Social History Tobacco Use Types Packs/Day Years [...] Industry Job Start Date Job End Date [email or web address] Not on file Not on file Not on file COVID-19 Exposure Response Date Recorded In the last 10 days, have yo u been in contact with someone who was confirmed or suspected to have Coronavirus/COVID-19? No / Unsure 02/15/2022 10:32 AM BEATER DUMPER documented as of this encounter Plan of Treatment Upcoming Encounters Date Type Department Care Team (Late st Contact Info) Description 04/24/2024 2:00 PM CDT Office Visit [facility] - Endocrinology - [place] #2 [place] [phone] Chetan Do MD #[address] [phone] 08/14/2024 1:00 PM CDT Office Visit [facility] - Pulmonology & Sleep Medicine [facility] #2 [place] [phone] Raghu Green MD #2 [place] [phone] 09/17/2024 1:00 PM CDT Office Visit [facility] - [place] #2 [place] [address] Nicolas Greer MD #2 [facility] [place] [address] documented as of this encounter Procedures Procedure Name Priority Date/Time Associated Diagnosis Comments CULTURE, URINE Routine 02/16/2022 8:25 AM BEATER DUMPER Other fatigue documented in this encounter Results * CULTURE, URINE (02/16/2022 8:25 AM BEATER DUMPER) CULTURE RESULTS MIXED GROWTH OF ONE OR MORE DISTAL URETHRAL CONTAMINANTS 02/17/2022 4:22 PM BEATER DUMPER [facility] Culture Non-Phlebotomy Collection / Unknown 02/16/2022 8:25 AM BEATER DUMPER 02/16/2022 10:53 AM BEATER DUMPER Nicolas Greer MD MICROBIOLOGY - [facility] Final Result [facility] [address] [place] [address], documented in this encounter Visit Diagnoses Diagnosis Other fatigue documented in this encounter Additional Health Concerns Assessment Noted Time PHQ-9 Depression Total Score: 0 02/12/19 20 10:45 AM BEATER DUMPER documented as of this encounter Care Teams Electron Beam Welding Machine Operator Relationship Specialty Start Date End Date Nicolas Greer MD #2 [facility] [place] [address] PCP - General Family Medicine 09/08/21 Ariel Christiansen MD Consulting Physician Cardiovascular Disease - Cardiology 07/19/16 [place] [id number] [address] Electrocardiograph Operator Pulmonary Disease 06/18/20 Keny Saldaña APRN, BREAST SPLITTER #[address] [address] Nurse Practitioner Advanced Practice Nurse 09/08/21 Cristian Dewitt MD #[address] [address] Consulting Physician Cardiovascular Disease - Cardiology 10/06/21 02/07/24 Ale Spain, RN [place] Collarette Separator 03/15/22 02/12/23 Ale Spain, RN [place] Nurse Collarette Separator 03/15/22 02/13/23 Yamel Kurtz III, MD #2 [place] [address] Consulting Physician Urology 09/11/22 Raghu Grene MD #2 [place] [address] Consulting Physician Pulmonary Disease 01/04/22 Warren Osborn MD #[address] [address] Consulting Physician Colon and Rectal Surgery 05/21/23 Ale Spain, RN [place] Nurse Collarette Separator 09/05/23 Chetan Do MD #[address] [address] Consulting Physician Endocrinology 01/23/24 documented as of this encounter
--- OUTSIDE RECORDS SUMMARY | 2024-03-24 13:02 | XMS_ITS | Encounter Summary ---
Author Organization [facility] Address [address] [place] [address] Phone Care Team Providers Care Gradall Operator Name Role Phone Ariel Christiansen MD Unavailable [phone] Parmjit Vogel MD Unavailable [phone] Nicolas Greer MD Primary Care Provider [phone] Keny Saldaña APRN, STORES DESPATCH HAND Unavailable Cristian Dewitt MD Unavailable Unaruslani Ale Richard RN Unavailable Unavailable Ale Spain RN Unavailable Unavailable Jerardo MCCANN MD, Courtney Unavailable [phone] Raghu Green MD Unavailable Warren Osborn MD Unavailable Ale Spain RN Unavailable Unavailable Chetan Do MD Unavailable Encounter Details Date Type Department Care Team (Late st Contact Info) Description 09/14/2021 [facility] 1 [place] [phone] Nicolas Greer MD #[address] [address] Hormone resistant malignancy status; Heart failure, unspecified (HCC); Type 2 diabetes mellitus with hyperglycemia (HCC); Essential (primary) hypertension Social History Tobacco Use Types Packs/Day Years [...] Job Start Date Job End Date Retired [employer] Not on file Not on file Not [...] 04/24/2024 2:00 PM CDT Office Visit [facility] Medical Group - Endocrinology - [place] #2 [place] [phone] Chetan Do MD #[address] [address] 08/14/2024 1:00 PM CDT Office Visit [facility] Medical [facility] - Pulmonology & Sleep Medicine [facility] #2 [place] [phone] Raghu Green MD #2 [place] [address] 09/17/2024 1:00 PM CDT Office Visit [facility] Family Medicine [facility] [address] [place] [phone] Nicolas Greer MD [address] [address] documented as of this encounter Procedures Procedure Name Priority Date/Time Associated Diagnosis Comments CBC WITH AUTO DIFFERENTIAL Routine 09/14/2021 2:30 PM CDT Hormone resistant malignancy status Heart failure, unspecified (HCC) Type 2 diabetes mellitus with hyperglycemia (HCC) Essential (primary) hypertension PHOSPHORUS (PO4) Routine 09/14/2021 2:30 PM CDT Hormone resistant malignancy status Heart failure, unspecified (HCC) Type 2 diabetes mellitus with hyperglycemia (HCC) Essential (primary) hypertension MAGNESIUM (MG) Routine 09/14/2021 2:30 PM CDT Hormone resistant malignancy status Heart failure, unspecified (HCC) Type 2 diabetes mellitus with hyperglycemia (HCC) Essential (primary) hypertension COMPLETE BLOOD COUNT (CBC) WITH DIFF Routine 09/14/2021 2:30 PM CDT Hormone resistant malignancy status Heart failure, unspecified (HCC) Type 2 diabetes mellitus with hyperglycemia (HCC) Essential (primary) hypertension BASIC METABOLIC PANEL W/ CALCIUM TOTAL Routine 09/14/2021 2:30 PM CDT Hormone resistant malignancy status Heart failure, unspecified (HCC) Type 2 diabetes mellitus with hyperglycemia (HCC) Essential (primary) hypertension documented in this encounter Results * (ABNORMAL) CBC WITH AUTO DIFFERENTIAL (09/14/2021 2:30 PM CDT) WBC 8.72 4.00 - 12.00 10(3)/mcL 09/14/2021 3:38 PM CDT [facility] RBC 4.15 3.80 - 5.30 10(6)/mcL 09/14/2021 3:38 PM CDT [facility] HEMOGLOBIN (HGB) 12.7 12.0 - 15.8 g/dL 09/14/2021 3:38 PM CDT [facility] HEMATOCRIT (HCT) 42.3 36.0 - 47.0 % 09/14/2021 3:38 PM CDT [facility] MCV 101.9(H) 82.0 - 96.0 fL 09/14/2021 3:38 PM CDT [facility] MCH 30.6 26.0 - 34.0 pg 09/14/2021 3:38 PM CDT [facility] MCHC 30.0(L) 31.0 - 36.0 g/dL 09/14/2021 3:38 PM CDT [facility] PLATELET COUNT 289 140 - 440 10(3)/mcL 09/14/2021 3:38 PM CDT [facility] RDW 13.1 11.8 - 15.5 % 09/14/2021 3:38 PM CDT [facility] MPV 10.5 9.7 - 12.4 fL 09/14/2021 3:38 PM CDT [facility] NEUTROPHILS 77.0(H) 47.0 - 73.0 % 09/14/2021 3:38 PM CDT [facility] LYMPHOCYTES 14.9(L) 18.0 - 42.0 % 09/14/2021 3:38 PM CDT [facility] MONOCYTES 6.2 4.0 - 12.0 % 09/14/2021 3:38 PM CDT [facility] EOSINOPHILS 1.3 0.0 - 5.0 % 09/14/2021 3:38 PM CDT [facility] BASOPHILS 0.6 0.0 - 1.0 % 09/14/2021 3:38 PM CDT [facility] ABSOLUTE NEUTROPHILS 6.72 1.60 - 7.70 10(3)/mcL 09/14/2021 3:38 PM CDT [facility] ABSOLUTE LYMPHOCYTES 1.30 1.30 - 3.20 10(3)/mcL 09/14/2021 3:38 PM CDT [facility] ABSOLUTE MONOCYTES 0.54 0.20 - 1.00 10(3)/[facility] 09/14/2021 3:38 PM CDT [facility] ABSOLUTE EOSINOPHIL 0.11 0.00 - 0.40 10(3)/mcL 09/14/2021 3:38 PM CDT [facility] ABSOLUTE BASOPHILS 0.05 0.00 - 0.10 10(3)/[facility] 09/14/2021 3:38 PM CDT [facility] NRBC PER 100 WBC 0 09/15/19 3:38 PM CDT [facility] Blood No Phlebotomy Charged / Unknown 09/14/2021 2:30 PM CDT 09/14/2021 3:33 PM CDT Nicolas Greer MD HEMATOLOGY ORDERABLES Final Result Performing Organization Address City/[facility]/ZIP Co de Phone Number [facility] #[address] [place] [address] * (ABNORMAL) MAGNESIUM (MG) (09/14/2021 2:30 PM CDT) Pathologist [facility] MAGNESIUM 1.7(L) 1.8 - 2.5 mg/dL 09/14/2021 4:01 PM CDT [facility] Blood No Phlebotomy Charged / Unknown 09/14/2021 2:30 PM CDT 09/14/2021 3:33 PM CDT Nicolas Greer MD CHEMISTRY ORDERABLES Final Result Performing Organization Address City/[facility]/ZIP Co de Phone Number [facility] #[address] [place] [address] * PHOSPHORUS (PO4) (09/14/2021 2:30 PM CDT) PHOSPHORUS 2.9 2.4 - 4.7 mg/dL 09/14/2021 4:01 PM CDT [facility] Blood No Phlebotomy Charged / Unknown 09/14/2021 2:30 PM CDT 09/14/2021 3:33 PM CDT Nicolas Greer MD CHEMISTRY ORDERABLES Final Result [facility] #[address] [place] [address] * (ABNORMAL) BASIC METABOLIC PANEL W/ CALCIUM TOTAL (09/14/2021 2:30 PM CDT) SODIUM 142 136 - 144 mmol/L 09/14/2021 4:01 PM CDT [facility] POTASSIUM 3.8 3.5 - 5.1 mmol/L 09/14/2021 4:01 PM CDT [facility] CHLORIDE 98(L) 100 - 110 mmol/L 09/14/2021 4:01 PM CDT [facility] CO2, VENOUS 38(H) 22 - 32 mmol/L 09/14/2021 4:01 PM CDT [facility] ANION GAP 9.8 8.0 - 20.0 mmol/L 09/14/2021 4:01 PM CDT [facility] GLUCOSE 110(H) 70 - 99 mg/dL 09/14/2021 4:01 PM CDT [facility] BUN 25(H) 8 - 23 mg/dL 09/14/2021 4:01 PM CDT [facility] CREATININE, BLOOD 0.96 0.60 - 1.10 mg/dL 09/14/2021 4:01 PM CDT [facility] BUN/CREATININE RATIO 26(H) 12 - 20 ratio 09/14/2021 4:01 PM CDT [facility] CALCIUM 11.0(H) 8.9 - 10.3 mg/dL 09/14/2021 4:01 PM CDT [facility] GFR, ESTIMATED >60 >=60 09/14/2021 4:01 PM CDT [facility] Comment: Creatinine Clearance is the preferred criteria for selecting drug dose adjustments in renally impaired patients. The GFR is provided as additional pertinent clinical information. GFR is reported in mL/min/1.73 sq m. Blood No Phlebotomy Charged / Unknown 09/14/2021 2:30 PM CDT 09/14/2021 3:33 PM CDT Nicolas Greer MD CHEMISTRY ORDERABLES Final Result [facility] #[address] [place] [address] documented in this encounter Visit Diagnoses Diagnosis Hormone resistant malignancy status Heart failure, unspecified (HCC) Heart failure, unspecified Type 2 diabetes mellitus with hyperglycemia (HCC) Type II or unspecified type diabetes mellitus without mention of complication, not stated as uncontrolled Essential (primary) hypertension Unspecified essential hypertension documented in this encounter Additional Health Concerns Infection Onset Date Last Indicated Resolved Time COVID - 19 12/24/2021 12/24/2021 12/26/2021 8:07 AM SHIP PROPELLER FINISHER Respiratory Rule Out - RPA 12/24/2021 12/24/2021 1 02/24/2021 4:41 PM SHIP PROPELLER FINISHER Influenza 12/24/2021 12/24/2021 12/31/2021 12:1 6 AM SHIP PROPELLER FINISHER Assessment Noted Time PHQ-9 Depression Total Score: 0 02/12/19 20 10:45 AM SHIP PROPELLER FINISHER documented as of this encounter Care Teams Gradall Operator Relationship Specialty Start Date End Date Nicolas Greer MD [address] [address] PCP - General Family Medicine 09/08/21 Ariel Christiansen MD Consulting Physician Cardiovascular Disease - Cardiology 07/19/[address] [place] [address] [facility] [address] [place] [address] Cleaning Supervisor Pulmonary Disease 06/18/20 Keny Saldaña APRN, STORES DESPATCH HAND #[address] [address] Nurse Practitioner Advanced Practice Nurse 09/08/21 Cristian Dewitt MD #[address] [address] Consulting Physician Cardiovascular Disease - Cardiology 10/06/21 02/07/24 Ale Spain, RN [place] Celery Packer 03/15/22 02/12/23 Ale Spain, RN [place] Nurse Celery Packer 03/15/22 02/13/23 Yamel Kurtz III, MD #2 [place] [address] Consulting Physician Urology 09/11/22 Raghu Green MD #2 [place] [phone] Consulting Physician Pulmonary Disease 01/04/22 Warren Osborn MD #[address] [address] Consulting Physician Colon and Rectal Surgery 05/21/23 Ale Spain, RN [place] Nurse Celery Packer 09/05/23 Chetan Do MD #[address] [phone] Consulting Physician Endocrinology 01/23/24 documented as of this encounter
--- OUTSIDE RECORDS SUMMARY | 2024-03-24 13:02 | XMS_ITS | Encounter Summary ---
Author Organization [facility] Address [address] [place] [place] [address] Phone Care Team Providers Care Project Archivist Name Role Phone Nicolas Greer MD Primary Care Provider [phone] Ariel Christiansen MD Unavailable [phone] Parmjit Vogel MD Unavailable [phone] Nicolas Greer MD Primary Care Provider [phone] Keny Saldaña APRN, POLICE SHIFT COMMANDER Unavailable Cristian Dewitt MD Unavailable Ale Black RN Unavailable Unavailable Ale Spain RN Unavailable Unavailable Jerardo MCCANN MD, Courtney Unavailable [phone] Raghu Green MD Unavailable Warren Osborn MD Unavailable Ale Spain RN Unavailable Unavailable Chetan Do MD Unavailable Reason for Visit * Reason Comments Medication Refill Encounter Details Date Type Department Care Team (Late st Contact Info) Description 11/17/2020 Refill [facility] #2 [place] [address] Nicolas Greer MD #2 [facility] [address] [place] [address] Medication Refill Social History Tobacco Use Types [...] Job Start Date Job End Date Retired [employer] Not on file Not on file Not on file documented as of this encounter Miscellaneous Notes * Telephone Encounter - Nicolle Funk RN - 11/17/2020 3:38 PM CDT Medication failed the protocol, provider to review and approve the medication order if appropriate. Requested Prescriptions Pending Prescriptions Disp Refills benzonatate (TESSALON) 100 MG Capsule [Pharmacy Med Name: Benzonatate 100 MG Oral Capsule] 30 Capsule 0 Sig: Take 1 capsule by mouth three times daily as needed for cough [facility] Not Delegated - Ear, Nose, and Throat: Antitussives/Expectorants Failed - 11/17/2020 10:05 AM Failed - This refill cannot be delegated Passed - Valid encounter within last 12 months Past Office Visits Recent Outpatient Visits 1 month ago Blepharitis of left lower eyelid, unspecified type [facility] - Nicolas Waters MD 4 months ago COPD exacerbation (HCC) [facility] - Nicolas Waters MD 5 months ago SOB (shortness of breath) [facility] - Nicolas Waters MD 8 months ago Chronic obstructive pulmonary disease, unspecified COPD type (HCC) [facility] - Nicolas Waters MD 1 year ago Hyperlipidemia, unspecified hyperlipidemia type [facility] Nicolas Greer MD Upcoming Appointments Future Appointments In 1 month Nicolas Greer MD [facility], [facility] [employer] SALES REPRESENTATIVE - Recent and Past Visits Recent Visits Date Type Provider Dept 09/22/20 Office Visit Nicolas Greer MD [facility] 06/21/20 Office Visit Nicolas Greer MD [facility] 06/08/20 Office Visit Nicolas Greer MD [facility] 03/11/20 Office Visit Nicolas Greer MD [facility] 10/14/19 Office Visit Nicolas Greer MD [facility] Showing recent visits within past 460 days with a meds authorizing provider and meeting all other requirements Future Appointments Date Type Provider Dept 12/23/20 Appointment Nicolas Greer MD [facility] Showing future appointments within next 90 days with a meds authorizing provider and meeting all other requirements documented in this encounter Plan of Treatment Upcoming Encounters Date Type Department Care Team (Late st Contact Info) Description 04/24/2024 2:00 PM CDT Office Visit [facility] - Endocrinology - [place] #2 [place] [phone] Chetan Do MD #[address] [address] 08/14/2024 1:00 PM CDT Office Visit [facility] - Pulmonology & Sleep Medicine [facility] #2 [place] [address] Raghu Green MD #2 [place] [address] 09/17/2024 1:00 PM CDT Office Visit [facility] #2 [place] [address] Nicolas Greer MD #[address] [address] documented as of this encounter Visit Diagnoses Diagnosis Pulmonary emphysema, unspecified emphysema type (HCC) documented in this encounter Additional Health Concerns Infection Onset Date Last Indicated Resolved Time COVID - 19 09/02/2021 09/02/2021 09/03/2021 2:05 PM CDT COVID - 19 12/24/2021 12/24/2021 12/26/2021 8:07 AM LINING STITCHER Respiratory Rule Out - RPA 12/24/2021 12/24/2021 1 02/24/2021 4:41 PM LINING STITCHER Influenza 12/24/2021 12/24/2021 12/31/2021 12:1 6 AM LINING STITCHER Assessment Noted Time PHQ-9 Depression Total Score: 0 02/12/19 10:45 AM LINING STITCHER documented as of this encounter Care Teams Project Archivist Relationship Specialty Start Date End Date Nicolas Greer MD #[address] [address] PCP - General Family Medicine 12/22/14 09/07/21 Nicolas Greer MD #[address] [address] PCP - General Family Medicine 09/08/21 Ariel Christiansen MD #[address] [address] Consulting Physician Cardiovascular Disease - Cardiology 07/19/16 [place] [address] [address] Family Worker Pulmonary Disease 06/18/20 Keny Saldaña APRN, POLICE SHIFT COMMANDER #[address] [address] Nurse Practitioner Advanced Practice Nurse 09/08/21 Cristian Dewitt MD #[address] [address] Consulting Physician Cardiovascular Disease - Cardiology 10/06/21 02/07/24 Ale Spain, RN [place] Container Crane Operator 03/15/22 02/12/23 Ale Spain, RN [place] Nurse Container Crane Operator 03/15/22 02/13/23 Yamel Kurtz III, MD #2 [place] [address] Consulting Physician Urology 09/11/22 Raghu Green MD #2 [place] [address] Consulting Physician Pulmonary Disease 01/04/22 Warren Osborn MD #[address] [address] Consulting Physician Colon and Rectal Surgery 05/21/23 Ale Spain, RN [place] Nurse Container Crane Operator 09/05/23 Chetna Do MD #[address] [phone] Consulting Physician Endocrinology 01/23/24 documented as of this encounter
--- OUTSIDE RECORDS SUMMARY | 2024-03-24 13:02 | XMS_ITS | Encounter Summary ---
Author Organization [facility] Address [address] [place] [address] Phone Care Team Providers Care Orthotic Practitioner Name Role Phone Nicolas Greer MD Primary Care Provider [phone] Ariel Christiansen MD Unavailable [phone] Parmjit Vogel MD Unavailable [phone] Nicolas Greer MD Primary Care Provider [phone] Keny Saldaña APRN, PROGRAM ADVOCATE Unavailable Cristian Dewitt MD Unavailable Ale Black RN Unavailable Unavailable Ale Spain RN Unavailable Unavailable Jerardo MCCANN MD, Courtney Unavailable [phone] Raghu Green MD Unavailable Warren Osborn MD Unavailable Ale Spain RN Unavailable Unavailable Chetan Do MD Unavailable Reason for Visit * Reason Comments Medication Refill Encounter Details Date Type Department Care Team (Late st Contact Info) Description 08/26/2021 [facility]ill [facility] #2 [place] [address] Nicolas Greer MD #2 [facility] [address] [place] [address] Medication Refill Social History Tobacco Use Types [...] Job Start Date Job End Date Retired [employer] Not on file Not on file Not on file COVID-19 Exposure Response Date Recorded In the last 10 days, have mirta u been in contact with someone who was confirmed or suspected to have Coronavirus/COVID-19? No / Unsure 08/03/2021 11:31 AM CDT documented as of this encounter Miscellaneous Notes * Telephone Encounter - Nicolle Funk RN - 08/26/2021 3:25 PM CDT Medication failed the protocol, provider to review and approve the medication order if appropriate. Requested Prescriptions Pending Prescriptions Disp Refills allopurinol (ZYLOPRIM) 100 MG Tablet [Pharmacy Med Name: Allopurinol 100 MG Oral Tablet] 180 Tablet3 Sig: Take 2 tablets by mouth once daily Gout Agents Protocol Passed - 08/26/2021 2:55 PM Passed - Uric acid on record in past 12 months URIC ACID Date Value Ref Range Status 08/05/2021 4.1 2.4 - 5.7 mg/dL Final Passed - Visit with relevant provider in past 12 months or upcoming 90 days Recent Visits Date Type Provider Dept 08/03/21 Telemedicine Nicolas Greer MD [facility] 07/21/21 Telemedicine MohyuddinNicolas MD [facility] 04/28/21 Telemedicine Nicolas Greer [...] creatinine on record in past 12 months CREATININE, BLOOD Date Value Ref Range Status 08/05/2021 0.64 0.60 - 1.10 mg/dL Final benzonatate (TESSALON) 100 MG Capsule [Pharmacy Med Name: Benzonatate 100 MG Oral Capsule] 30 Capsule 0 Sig: TAKE 1 CAPSULE BY MOUTH THREE TIMES DAILY NEEDED FOR COUGH FOR UP TO 10 DAYS Not Delegated - Anti-Tussives Protocol Failed - 08/26/2021 2:55 PM Failed - This refill cannot be delegated Passed - Visit with relevant provider in past 12 months or upcoming 90 days Recent Visits Date Type Provider Dept 08/03/21 Telemedicine Nicolas Greer MD [facility] 07/21/21 Telemedicine Nicolas Greer MD [facility] 04/28/21 Telemedicine Nicolas Greer MD [facility] 12/20/20 Office Visit Nicolas Greer MD [facility] 09/22/20 Office Visit Nicolas Greer MD [facility] Showing recent visits within past 365 days and meeting all other requirements Future Appointments Date Type Provider Dept 10/27/21 Appointment Nicolas rGeer MD [facility] Showing future appointments within next 90 days and meeting all other requirements documented in this encounter Plan of Treatment Upcoming Encounters Date Type Department Care Team (Late st Contact Info) Description 04/24/2024 2:00 PM CDT Office Visit [facility] - Endocrinology - [place] #2 [place] [address] Chetan Do MD #2 [facility] [address] [place] [address] 08/14/2024 1:00 PM CDT [facility] #2 [place] [address] Raghu Green MD #2 [facility] [place] [address] 09/17/2024 1:00 PM CDT Office Visit [facility] - Family Medicine [facility] #2 [place] [address] Nicolas Greer MD #[address] [address] documented as of this encounter Visit Diagnoses Diagnosis Pulmonary emphysema, unspecified emphysema type (HCC) documented in this encounter Additional Health Concerns Infection Onset Date Last Indicated Resolved Time COVID - 19 09/02/2021 09/02/2021 09/03/2021 2:05 PM CDT COVID - 19 12/24/2021 12/24/2021 12/26/2021 8:07 AM KILN OPERATOR Respiratory Rule Out - RPA 12/24/2021 12/24/2021 1 02/24/2021 4:41 PM KILN OPERATOR Influenza 12/24/2021 12/24/2021 12/31/2021 12:1 6 AM KILN OPERATOR Assessment Noted Time PHQ-9 Depression Total Score: 0 02/12/19 10:45 AM KILN OPERATOR documented as of this encounter Care Teams Orthotic Practitioner Relationship Specialty Start Date End Date Nicolas Greer MD #[address] [address] PCP - General Family Medicine 12/22/14 09/07/21 Nicolas Greer MD #[address] [address] PCP - General Family Medicine 09/08/21 Ariel Christiansen MD #[address] [address] Consulting Physician Cardiovascular Disease - Cardiology 07/19/16 [place] [address] [address] Anesthesiology Resident Pulmonary Disease 06/18/20 Keny Saldaña APRN, PROGRAM ADVOCATE #[address] [address] Nurse Practitioner Advanced Practice Nurse 09/08/21 Cristian Dewitt MD #[address] [address] Consulting Physician Cardiovascular Disease - Cardiology 10/06/21 02/07/24 Ale Spain, RN [place] Central Office Maintainer 03/15/22 02/12/23 Ale Spain, RN [place] Nurse Central Office Maintainer 03/15/22 02/13/23 Yamel Kurtz III, MD #2 [place] [address] Consulting Physician Urology 09/11/22 Raghu Green MD #2 [place] [address] Consulting Physician Pulmonary Disease 01/04/22 Warren Osborn MD #[address] [address] Consulting Physician Colon and Rectal Surgery 05/21/23 Ale Spain, RN [place] Nurse Central Office Maintainer 09/05/23 Chetan Do MD #[address] [address] Consulting Physician Endocrinology 01/23/24 documented as of this encounter
--- OUTSIDE RECORDS SUMMARY | 2024-03-24 13:02 | XMS_ITS | Encounter Summary ---
Author Organization [facility] Address [address] [place] [address] Phone Care Team Providers Care A P Mechanic Name Role Phone Ariel Christiansen MD Unavailable [phone] Parmjit Vogel MD Unavailable [phone] Nicolas Greer MD Primary Care Provider [phone] Keny Saldaña APRN, MARY Unavailable Cristian Dewitt MD Unavailable Kate Kurtz III, MD, Courtney Unavailable [phone] Raghu Green MD Unavailable Warren Osborn MD Unavailable Ale Spain RN Unavailable Unavailable Chetan Do MD Unavailable Reason for Visit * Reason Comments Medication Refill Encounter Details Date Type Department Care Team (Late st Contact Info) Description 09/21/2023 Refill [facility] #2 [place] [address] Nicolas Greer MD #[address] [address] Medication Refill Social History Tobacco Use Types Packs/Day Years Used Date Smoking Tobacco: Former Cigarettes 0.5 50 1 957 - 2006 Smokeless Tobacco: Never Alcohol Use Standard Drinks/Week Comments No 0 (1 standard drink = 0.6 oz pur e alcohol) [facility] Utilities Answer Date Recorded In the past 12 months has e electric, gas, oil, or water company threatened to shut off services in your home? No 09/05/2023 Social Connection and Isolation Panel [NHANES] A nswer Date Recorded In a typical week, how many times do you talk on the phone with family, friends, or neighbors? Twice a week 09/05/2023 How often do you get together with friends or re latives? Twice a week 09/05/2023 How often do you attend mormon or orthodox serv ices? Never 09/05/2023 Do you belong to any clubs o r organizations such as mormon groups, unions, fraternal or athletic groups, or school groups? No 09/05/2023 How often do you attend meet ings of the clubs or organizations you belong to? Never 09/05/2023 Are you , , di vorced, , never , or living with a partner? 09/05/2023 AUDIT-C Answer Date Recorded Q1: How often do you have a drink containing alcohol? Never 09/05/2023 Q2: How many drinks containi ng alcohol do you have on a typical day when you are drinking? Patient does not drink Q3: How often do you have si x or more drinks on one occasion? Never 09/05/2023 Overall Financial Resource Strain (CARDIA) Answe r Date Recorded How hard is it for you to pa y for the very basics like food, housing, medical care, and heating? Not hard at all 09/05/2023 PHQ-2 Answer Date Recorded Total Score - Questions 1-9 2 08/07 [facility] Occupat ional Health - Occupational Stress Questionnaire Answer Date Recorded Do you feel stress - tense, restless, nervous, or anxious, or unable to sleep at night because your mind is troubled all the time - these days? Only a little 09/05/2023 Exercise Vital Sign Answer Date Recorde d On average, how many days pe r week do you engage in moderate to strenuous exercise (like a brisk walk)? 0 days 09/05/2023 On average, how many minutes do you engage in exercise at this level? 0 min 09/05/2023 Hunger Vital Sign Answer Date Recorded Within the past 12 months, y ou worried that your food would run out before you got the money to buy more. Never true 09/05/19 24 Within the past 12 months, t he food you bought just didn't last and you didn't have money to get more. Never true 09/05/2023 PRAPARE - Transportation Answer Date Re corded In the past 12 months, has l ack of transportation kept you from medical appointments or from getting medications? No 08/07 In the past 12 months, has l ack of transportation kept you from meetings, work, or from getting things needed for daily living? No 09/05/2023 Housing Stability Vital Sign Answer Yuri e [...] place to sleep or slept in a fci (including now)? Patient declined 04/04/2023 Housing Stability Vital Sign Answer Yuri e Recorded In the last 12 months, was t here a time when you were not able to pay the mortgage or rent on time? No 09/05/2023 In the past 12 months, how m any times have you moved where you were living? 0 09/05/2023 At any time in the past 12 m [facility], were you homeless or living in a fci (including now)? No 09/05/2023 Education Answer Date Recorded What is the [...] Job Start Date Job End Date Retired [employer] Not on file Not on file Not on file documented as of this encounter Plan of Treatment Upcoming Encounters Date Type Department Care Team (Late st Contact Info) Description 04/24/2024 2:00 PM CDT Office Visit [facility] Medical [facility] - Endocrinology - [place] #2 [facility] [place] [address] Chetan Do MD #2 [facility] [address] [place] [phone] 08/14/2024 1:00 PM CDT Office Visit [facility] Medical [facility] - Pulmonology & Sleep Medicine - [place] #2 [facility] [place] [address] Raghu Green MD #2 [facility] [address] 09/17/2024 1:00 PM CDT Office Visit [facility] Medical [facility] - Family Medicine - [place] #2 [place] [address] Nicolas Greer MD #2 [facility] [address] [place] [address] documented as of this encounter Goals Goal Patient Goal Type Associated Problems Recent Progress Patient-Stated? Author Become More Active Patient Goals On track(03/03/19 25 3:47 PM SLEDGER) Yes Ale Spain, RN Note: Follow Up Date 03/2024 - keep track of how long I exercise - keep track of how often I exercise Why is this important? It is easy to come up with reasons not to exercise. These steps will help you get started and have fun doing it. Notes: documented as of this encounter Visit Diagnoses Not on filedocumented in this encounter Additional Health Concerns Assessment Noted Time PHQ-9 Depression Total Score: 2 09/05/19 24 1:00 PM CDT documented as of this encounter Care Teams A P Mechanic Relationship Specialty Start Date End Date Nicolas Greer MD #2 [facility] [address] [place] [address] PCP - General Family Medicine 09/08/21 Ariel Christiansen MD Consulting Physician Cardiovascular Disease - Cardiology 07/19/16 [place] [address] [address] Supervisor Dumping Pulmonary Disease 06/18/20 Keny Saldaña APRN, SAND BLASTER #[address] [address] Nurse Practitioner Advanced Practice Nurse 09/08/21 Cristian Dewitt MD #[address] [address] Consulting Physician Cardiovascular Disease - Cardiology 10/06/21 02/07/24 Yamel Kurtz III, MD #2 [place] [address] Consulting Physician Urology 09/11/22 Raghu Green MD #2 [place] [address] Consulting Physician Pulmonary Disease 01/04/22 Warren Osborn MD #2 [facility] [address] [place] [address] Consulting Physician Colon and Rectal Surgery 05/21/23 Ale Spain RN [place] Nurse Principal Investigator 09/05/23 Chetan Do MD #[address] [address] Consulting Physician Endocrinology 01/23/24 documented as of this encounter
--- OUTSIDE RECORDS SUMMARY | 2024-03-24 13:02 | XMS_ITS | Encounter Summary ---
Author Organization [facility] Address [address] [place] [address] Phone Care Team Providers Care Emergency Medicine Physician Assistant Name Role Phone Nicolas Greer MD Primary Care Provider [phone] Ariel Christiansen MD Unavailable [phone] Parmjit Vogel MD Unavailable [phone] Nicolas Greer MD Primary Care Provider [phone] Keny Saldaña APRN, FREELANCE COURT REPORTER Unavailable Cristian Dewitt MD Unavailable Ale Black RN Unavailable Unavailable Ale Spain RN Unavailable Unavailable Jerardo MCCANN MD, Courtney Unavailable [phone] Raghu Green MD Unavailable Warren Osborn MD Unavailable Ale Spain RN Unavailable Unavailable Chetan Do MD Unavailable Reason for Visit * Reason Comments Medication Refill Encounter Details Date Type Department Care Team (Late st Contact Info) Description 08/04/2021 Refill [facility] #2 [place] [address] Nicolas Greer MD #2 [facility] [address] [place] [address] Medication Refill Social History Tobacco Use Types [...] Job Start Date Job End Date Retired [employer] Not on file Not on file Not on file COVID-19 Exposure Response Date Recorded In the last 10 days, have mirta u been in contact with someone who was confirmed or suspected to have Coronavirus/COVID-19? No / Unsure 08/03/2021 11:31 AM CDT documented as of this encounter Miscellaneous Notes * Telephone Encounter - Nicolle Funk RN - 08/04/2021 2:43 PM CDT Medication failed the protocol, provider to review and approve the medication order if appropriate. Requested Prescriptions Pending Prescriptions Disp Refills potassium chloride CR (KLORCON) 10 MEQ Tablet Controlled Release [Pharmacy Med Name: Potassium Chloride ER 10 MEQ Oral Tablet Extended Release] 180 Tablet 3 Sig: Take 2 tablets by mouth once daily Potassium Supplement Protocol Failed - 08/04/2021 9:42 AM Failed - Normal serum potassium in past 12 months POTASSIUM Date Value Ref Range Status 06/08/2020 3.8 3.5 - 5.1 mmol/L Final Passed - Visit with relevant provider in past 12 months or upcoming 90 days Recent Visits Date Type Provider Dept 08/03/21 Telemedicine Nicolas Greer MD [facility] [place] 07/21/21 Telemedicine Nicolas Greer MD [facility] 04/28/21 Telemedicine Nicolas Greer MD [facility] 12/20/20 Office Visit Nicolas Greer MD [facility] 09/22/20 Office Visit Nicolas Greer MD [facility] Showing recent visits within past 365 days and meeting all other requirements Future Appointments Date Type Provider Dept 10/27/21 Appointment Nicolas Greer MD [facility] Showing future appointments within next 90 days and meeting all other requirements documented in this encounter Plan of Treatment Upcoming Encounters Date Type Department Care Team (Late st Contact Info) Description 04/24/2024 2:00 PM CDT Office Visit [facility] Medical [facility] - Endocrinology - [place] #2 [place] [address] Chetan Do MD #[address] [address] 08/14/2024 1:00 PM CDT Office Visit [facility] Medical [facility] - Pulmonology & Sleep Medicine - [place] #2 [facility] [address] Raghu Green MD #2 [facility] [place] [address] 09/17/2024 1:00 PM CDT Office Visit [facility] Medical [facility] - Family Medicine - [place] #2 [facility] [address] Nicolas Greer MD #[address] [place] [address] documented as of this encounter Visit Diagnoses Not on filedocumented in this encounter Additional Health Concerns Infection Onset Date Last Indicated Resolved Time COVID - 19 09/02/2021 09/02/2021 09/03/2021 2:05 PM CDT COVID - 19 12/24/2021 12/24/2021 12/26/2021 8:07 AM CSR TECHNICIAN Respiratory Rule Out - RPA 12/24/2021 12/24/2021 1 02/24/2021 4:41 PM CSR TECHNICIAN Influenza 12/24/2021 12/24/2021 12/31/2021 12:1 6 AM CSR TECHNICIAN Assessment Noted Time PHQ-9 Depression Total Score: 0 02/12/19 10:45 AM CSR TECHNICIAN documented as of this encounter Care Teams Emergency Medicine Physician Assistant Relationship Specialty Start Date End Date Nicolas Greer MD #[address] [address] PCP - General Family Medicine 12/22/14 09/07/21 Nicolas Greer MD #[address] [address] PCP - General Family Medicine 09/08/21 Ariel Christiansen MD #[address] [address] Consulting Physician Cardiovascular Disease - Cardiology 07/19/16 [place] [address] [address] Emergency Medicine Physician Assistant Pulmonary Disease 06/18/20 Keny Saldaña APRN, FREELANCE COURT REPORTER #[address] [address] Nurse Practitioner Advanced Practice Nurse 09/08/21 Cristian Dewitt MD #[address] [address] Consulting Physician Cardiovascular Disease - Cardiology 10/06/21 02/07/24 Ale Spain, RN [place] Fancy Packer 03/15/22 02/12/23 Ale Spain, RN [place] Nurse Fancy Packer 03/15/22 02/13/23 Yamel Kurtz III, MD #2 [place] [address] Consulting Physician Urology 09/11/22 Raghu Green MD #2 [place] [address] Consulting Physician Pulmonary Disease 01/04/22 Warren Osborn MD #[address] [address] Consulting Physician Colon and Rectal Surgery 05/21/23 Ale Spain, RN [place] Nurse Fancy Packer 09/05/23 Chetan Do MD #[address] [address] Consulting Physician Endocrinology 01/23/24 documented as of this encounter
--- OUTSIDE RECORDS SUMMARY | 2024-03-24 13:02 | XMS_ITS | Encounter Summary ---
Author Organization [facility] [employer] [facility] Address [address] [place] [address] Phone Care Team Providers Care Claims Sorter Name Role Phone Nicolas Greer MD MPH Primary Care Provider [phone] Reason for Visit * Reason Comments Med Refill Encounter Details Date Type Department Care Team (Late st Contact Info) Description 12/18/2022 Refill [place] [email or web address] [address] [place] [address] Arnav Lunsford MD [address] [place] [address] Social History Tobacco Use Types Packs/Day Years [...] (Late Contact Info) Description 04/01/2024 4:00 PM RIG SITE ENGINEER Office Visit [place] [email or web address] [address] [place] [address] Jorge Rabago MD [address] [facility] [address] [place] [address] documented as of this encounter Visit Diagnoses Not on filedocumented in this encounter Care Teams Claims Sorter Relationship Specialty Start Date End Date Nicolas Greer MD MPH [address] [address] PCP - General Family Medicine 01/04/22 documented as of this encounter
--- OUTSIDE RECORDS SUMMARY | 2024-03-24 13:02 | XMS_ITS | Encounter Summary ---
Author Organization [facility] Address [address] [place] [address] Phone Care Team Providers Care Oxygen System Tester Name Role Phone Ariel Christiansen MD Unavailable [phone] Parmjit Vogel MD Unavailable [phone] Nicolas Greer MD Primary Care Provider [phone] Keny Saldaña APRN, MARY Unavailable Cristian Dewitt MD Unavailable Kate Kurtz III, MD, Courtney Unavailable [phone] Raghu Green MD Unavailable Warren Osborn MD Unavailable Ale Spain RN Unavailable Unavailable Chetan Do MD Unavailable Reason for Visit * Reason Comments Medication Refill Encounter Details Date Type Department Care Team (Late st Contact Info) Description 05/28/2023 [facility]ill [facility] #2 [place] [address] Nicolas Greer MD #[address] [address] Medication Refill Social History Tobacco Use Types Packs/Day Years Used Date Smoking Tobacco: Former Cigarettes 0.5 50 Smokeless Tobacco: Never Alcohol Use Standard Drinks/Week Comments No 0 (1 standard drink = 0.6 oz pur e alcohol) [facility] Utilities Answer Date Recorded In the [...] declined 04/04/2023 How often do you attend hinduism or taoism serv ices? Patient declined 04/04/2023 Do you belong to any clubs o r organizations such as hinduism groups, unions, fraternal or athletic groups, or [...] Total Score - Questions 1-9 0 09/05 [facility] [place] of Occupat ional Health - Occupational Stress [...] place to sleep or slept in a skilled nursing (including now)? Patient declined 04/04/2023 Education Answer [...] Job Start Date Job End Date Retired [employer] Not on file Not on file Not on file documented as of this encounter Miscellaneous Notes * Telephone Encounter - Nicolle Funk RN - 05/29/2023 9:18 AM CDT Medication failed the protocol, provider to review and approve the medication order if appropriate. Requested Prescriptions Pending Prescriptions Disp Refills torsemide (DEMADEX) 20 MG Tablet [Pharmacy Med Name: TORSEMIDE 20 MG TABLET] 90 Tablet 1 Sig: TAKE ONE TABLET BY MOUTH DAILY #0100 Diuretics Protocol Failed - 05/28/2023 3:08 PM Failed - Serum potassium on record in past 12 months POTASSIUM Date Value Ref Range Status 04/06/2022 3.4 (L) 3.5 - 5.1 mmol/L Final Failed - Serum sodium on record in past 12 months SODIUM Date Value Ref Range Status 04/06/2022 143 136 - 144 mmol/L Final Failed - GFR on record in past 12 months GFR, EST. NONAFRICAN Date Value Ref Range Status 04/06/2022 48 (L) >=60 Final Passed - Blood pressure on record in past 12 months Clinician-entered: BP Readings from Last 3 Encounters: 04/04/23 136/88 01/08/23 116/70 11/13/22 145/90 Patient-entered: No data recorded Passed - Visit [...] 90 days and meeting all other requirements vitamin b-12 (CYANOCOBALAMIN) 100 MCG Tablet [Pharmacy Med Name: VITAMIN B-12 100 MCG TABLET] 180 Tablet 1 Sig: TAKE TWO TABLETS BY MOUTH DAILY #0200 There is no refill protocol information for this order documented in this encounter Plan of Treatment Upcoming Encounters Date Type Department Care Team (Late st Contact Info) Description 04/24/2024 2:00 PM CDT Office Visit [facility] - Endocrinology - [place] #2 [place] [address] Chetan Do MD #[address] [address] 08/14/2024 1:00 PM CDT Office Visit [facility] - Pulmonology & Sleep Medicine [facility] #2 [place] [address] Raghu Green MD #2 [place] [address] 09/17/2024 1:00 PM CDT Office Visit [facility] Family [facility] #2 [place] [address] Nicolas Greer MD #[address] [address] documented as of this encounter Visit Diagnoses Diagnosis Edema, unspecified type documented in this encounter Additional Health Concerns Assessment Noted Time PHQ-9 Depression Total Score: 0 09/22/19 23 1:48 PM CDT documented as of this encounter Care Teams Oxygen System Tester Relationship Specialty Start Date End Date Nicolas Greer MD #[address] [address] PCP - General Family Medicine 09/08/21 Ariel Christiansen MD Consulting Physician Cardiovascular Disease - Cardiology 07/19/16 [place] [id number] [address] Floor Sanding Machine Operator Pulmonary Disease 06/18/20 Keny Saldaña APRN, [employer]ER #[address] [address] Nurse Practitioner Advanced Practice Nurse 09/08/21 Cristian Dewitt MD #[address] [address] Consulting Physician Cardiovascular Disease - Cardiology 10/06/21 02/07/24 Yamel Kurtz III, MD #2 [place] [address] Consulting Physician Urology 09/11/22 Raghu Green MD #2 [place] [address] Consulting Physician Pulmonary Disease 01/04/22 Warren Osborn MD #[address] [address] Consulting Physician Colon and Rectal Surgery 05/21/23 Ale Spain, RN [place] Nurse Assembly Supervisor 09/05/23 Chetan Do MD #[address] [phone] Consulting Physician Endocrinology 01/23/24 documented as of this encounter
--- OUTSIDE RECORDS SUMMARY | 2024-03-24 13:02 | XMS_ITS | Encounter Summary ---
Author Organization [facility] Address [address] [place] [place] [address] Phone Care Team Providers Care Slotter Operator Helper Name Role Phone Nicolas Greer MD Primary Care Provider [phone] Ariel Christiansen MD Unavailable [phone] Parmjit Vogel MD Unavailable [phone] Nicolas Greer MD Primary Care Provider [phone] Keny Saldaña APRN, RECLAMATION SUPERVISOR Unavailable Cristian Dewitt MD Unavailable Ale Black RN Unavailable Unavailable Ale Spain RN Unavailable Unavailable Jerardo MCCANN MD, Courtney Unavailable [phone] Raghu Green MD Unavailable Warren Osborn MD Unavailable Ale Spain RN Unavailable Unavailable Chetan Do MD Unavailable Reason for Visit * Reason Comments Medication Refill Encounter Details Date Type Department Care Team (Late st Contact Info) Description 12/21/2020 Refill [facility] Family [facility] #2 [place] [address] Nicolas Greer MD #[address] [address] Medication Refill Social History Tobacco Use Types [...] Job Start Date Job End Date Retired [employer] Not on file Not on file Not on file COVID-19 Exposure Response Date Recorded In the last month, have you been in contact with someone who was confirmed or suspected to have Coronavirus / COVID-19? No / Unsure 12/20/2020 11:11 AM ADJUNCT PROFESSOR OF LAW documented as of this encounter Miscellaneous Notes * Telephone Encounter - Nicolle Funk RN - 12/21/2020 12:31 PM CST Medication failed the protocol, provider to review and approve the medication order if appropriate. Requested Prescriptions Pending Prescriptions Disp Refills benzonatate (TESSALON) 100 MG Capsule [Pharmacy Med Name: Benzonatate 100 MG Oral Capsule] 30 Capsule 0 Sig: Take 1 capsule by mouth three times daily as needed for cough healthfinch Not Delegated - Ear, Nose, and Throat: Antitussives/Expectorants Failed - 12/21/2020 12:15 PM Failed - This refill cannot be delegated Passed - Valid encounter within last 12 months Past Office Visits Recent Outpatient Visits Yesterday Conjunctivitis of left eye, unspecified conjunctivitis type [facility] - [facility] - Nicolas Waters MD 3 months ago Blepharitis of left lower eyelid, unspecified type [facility] Medicine - Nicolas Waters MD 6 months ago COPD exacerbation (HCC) [facility] - Family Medicine - Nicolas Waters MD 6 months ago SOB (shortness of breath) [facility] Nicolas Waters MD 9 months ago Chronic obstructive pulmonary disease, unspecified COPD type (HCC) [facility] Nicolas Waters MD Upcoming Appointments Future Appointments In 3 months Nicolas Greer MD [facility] - Recent and Past Visits Recent Visits Date Type Provider Dept 12/20/20 Office Visit Nicolas Greer MD [facility] 09/22/20 Office Visit Nicolas Greer MD [facility] 06/21/20 Office Visit Nicolas Greer MD [facility] 06/08/20 Office Visit Nicolas Greer MD [facility] 03/11/20 Office Visit Nicolas Greer MD [facility] [place] 10/14/19 Office Visit Nicolas Greer MD [facility] Showing recent visits within past 460 days with a meds authorizing provider and meeting all other requirements Future Appointments No visits were found meeting these conditions. Showing future appointments within next 90 days with a meds authorizing provider and meeting all other requirements NCT PROFESSOR OF LAW documented in this encounter Plan of Treatment Upcoming Encounters Date Type Department Care Team (Late st Contact Info) Description 04/24/2024 2:00 PM CDT Office Visit [facility] [place] Medical [facility] Endocrinology - [place] #2 [place] [address] Chetan oD MD #[address] [address] 08/14/2024 1:00 PM CDT Office Visit [facility] - Pulmonology & Sleep Medicine - [place] #2 [place] [address] Raghu Green MD #2 [place] [address] 09/17/2024 1:00 PM CDT [facility] #2 [place] [address] Nicolas Greer MD #[address] [address] documented as of this encounter Visit Diagnoses Diagnosis Pulmonary emphysema, unspecified emphysema type (HCC) documented in this encounter Additional Health Concerns Infection Onset Date Last Indicated Resolved Time COVID - 19 09/02/2021 09/02/2021 09/03/2021 2:05 PM CDT COVID - 19 12/24/2021 12/24/2021 12/26/2021 8:07 AM ADJUNCT PROFESSOR OF LAW Respiratory Rule Out - RPA 12/24/2021 12/24/2021 1 02/24/2021 4:41 PM ADJUNCT PROFESSOR OF LAW Influenza 12/24/2021 12/24/2021 12/31/2021 12:1 6 AM ADJUNCT PROFESSOR OF LAW Assessment Noted Time PHQ-9 Depression Total Score: 0 02/12/19 10:45 AM ADJUNCT PROFESSOR OF LAW documented as of this encounter Care Teams Slotter Operator Helper Relationship Specialty Start Date End Date Nicolas Greer MD #[address] [address] PCP - General Family Medicine 12/22/14 09/07/21 Nicolas Greer MD #[address] [address] PCP - General Family Medicine 09/08/21 Ariel Christiansen MD #[address] [address] Consulting Physician Cardiovascular Disease - Cardiology 07/19/16 [place] [address] [address] Application Performance Engineer Pulmonary Disease 06/18/20 Keny Saldaña APRN, RECLAMATION SUPERVISOR #[address] [address] Nurse Practitioner Advanced Practice Nurse 09/08/21 Cristian Dewitt MD #[address] [address] Consulting Physician Cardiovascular Disease - Cardiology 10/06/21 02/07/24 Ale Spain, RN [place] Counseling Director 03/15/22 02/12/23 Ale Spain, RN [place] Nurse Counseling Director 03/15/22 02/13/23 Yamel Kurtz III, MD #2 [place] [address] Consulting Physician Urology 09/11/22 Raghu Green MD #2 [place] [address] Consulting Physician Pulmonary Disease 01/04/22 Warren Osborn MD #[address] [address] Consulting Physician Colon and Rectal Surgery 05/21/23 Ale Spain, RN [place] Nurse Counseling Director 09/05/23 Chetan Do MD #[address] [phone] Consulting Physician Endocrinology 01/23/24 documented as of this encounter
--- OUTSIDE RECORDS SUMMARY | 2024-03-24 13:02 | XMS_ITS | Encounter Summary ---
Author Organization [facility] Address [address] [place] [address] [place] [address] Phone Care Team Providers Care [place] Boatman Name Role Phone Nicolas Greer MD Primary Care Provider [phone] Ariel Christiansen MD Unavailable [phone] Parmjit Vogel MD Unavailable [phone] Nicolas Greer MD Primary Care Provider [phone] Keny Saldaña APRN, COOPERATIVE EXTENSION AGENT Unavailable Cristian Dewitt MD Unavailable Ale Black RN Unavailable Unavailable Ale Spain RN Unavailable Unavailable Jerardo MCCANN MD, Courtney Unavailable [phone] Raghu Green MD Unavailable Warren Osborn MD Unavailable Ale Spain RN Unavailable Unavailable Chetan Do MD Unavailable Reason for Visit * Reason Comments Medication Refill Encounter Details Date Type Department Care Team (Late st Contact Info) Description 02/07/[facility] [address] [place], [place] [id number] Nicolas Greer MD [address] [address] Medication Refill Social History Tobacco Use Types [...] Job Start Date Job End Date Retired [employer] Not on file Not on file Not on file documented as of this encounter Miscellaneous Notes * Telephone Encounter - Willow Posey RN - 02/07/2020 1:25 PM CST Medication failed the protocol, provider to review and approve the medication order if appropriate. Requested Prescriptions Pending Prescriptions Disp Refills allopurinol (ZYLOPRIM) 100 MG Tablet [Pharmacy Med Name: Allopurinol 100 MG Oral Tablet] 180 Tab 0 Sig: Take 2 tablets by mouth once daily Endocrinology: Gout Agents Passed - 02/07/2020 10:37 AM Passed - Valid encounter within last 12 months Past Office Visits Recent Outpatient Visits 3 months ago Hyperlipidemia, unspecified hyperlipidemia type [facility] - Family [facility] - Nicolas Waters MD 6 months ago Pulmonary emphysema, unspecified emphysema type (HCC) [facility] - Family [facility] - Keny Crowder APN, COOPERATIVE EXTENSION AGENT 8 months ago Ptosis of both eyelids [facility] - Keny Crowder APN, COOPERATIVE EXTENSION AGENT 12 months ago Hypothyroidism, unspecified type [facility] - Nicolas Waters MD 1 year ago Non-insulin dependent type 2 [facility] Upcoming Appointments JEWELRY ENGRAVER - Recent and Past Visits Recent Visits Date Type Provider Dept 10/14/19 Office Visit Nicolas Greer MD [facility] 07/14/19 Office Visit Keny Saldaña APN, MARY [facility] 05/22/19 Telemedicine Keny Saldaña APN, MARY [facility] 02/12/19 Office Visit Nicolas Greer MD [facility] 11/05/18 [facility] Show[facility] recent visits within past 460 days with a meds authorizing provider and meeting all other requirements Future Appointments No visits were found meeting these conditions. Showing future appointments within next 90 days with a meds authorizing provider and meeting all other requirements triamcinolone (KENALOG) 0.1 % Cream [Pharmacy Med Name: Triamcinolone Acetonide 0.1 % External Cream] 80 g 0 Sig: APPLY CREAM EXTERNALLY TWICE DAILY TO LEFT LEG FOR 10 DAYS Not Delegated - Dermatology: Corticosteroids Failed - 02/07/2020 10:37 AM Failed - This refill cannot be delegated Passed - Valid encounter within last 12 months Past Office Visits Recent Outpatient Visits 3 months ago Hyperlipidemia, unspecified hyperlipidemia type [facility] - Nicolas Waters MD 6 months ago Pulmonary emphysema, unspecified emphysema type (HCC) [facility] - Keny Crowder APN, MARY 8 months ago Ptosis of both eyelids [facility] - Keny Crowder APN, MARY 12 months ago Hypothyroidism, unspecified type [facility] - Nicolas Waters MD 1 year ago Non-insulin dependent type 2 diabetes mellitus (HCC[facility] MD Upcoming Appointments JEWELRY ENGRAVER - Recent and Past Visits Recent Visits Date Type Provider Dept 10/14/19 Office Visit Nicolas Greer MD [facility] 07/14/19 Office Visit Keny Saldaña APN, MARY [facility] 05/22/19 Telemedicine Keny Saldaña APN, MARY [facility] 02/12/19 Office Visit Nicolas Greer MD [facility] 11/05/18 Office Visit Nicolas Greer MD [facility] Showing recent visits within past 460 days with a meds authorizing provider and meeting all other requirements Future Appointments No visits were found meeting these conditions. Showing future appointments within next 90 days with a meds authorizing provider and meeting all other requirements levothyroxine (SYNTHROID) 137 MCG Tablet [Pharmacy Med Name: Levothyroxine Sodium 137 MCG Oral Tablet] 90 Tab 0 Sig: Take 1 tablet by mouth daily Endocrinology: Hypothyroid Agents Failed - 02/07/2020 10:37 AM Failed - TSH in normal range and within 360 days TSH Date Value Ref Range Status 11/28/2016 0.841 0.270 - 4.200 mIU/L Final Passed - Valid encounter within last 12 months Past Office Visits Recent Outpatient Visits 3 months ago Hyperlipidemia, unspecified hyperlipidemia type [facility] Nicolas Waters MD 6 months ago Pulmonary emphysema, unspecified emphysema type (HCC) [facility] - Keny Crowder APN, MARY 8 months ago Ptosis of both eyelids [facility] Keny Crowder APN, MARY 12 months ago Hypothyroidism, unspecified type [facility] Nicolas Waters MD 1 year ago Non-insulin dependent type 2 diabetes mellitus (HCC) [facility] Nicolas Waters MD Upcoming Appointments JEWELRY ENGRAVER - Recent and Past Visits Recent Visits Date Type Provider Dept 10/14/19 Office Visit Nicolas Greer MD [facility] 07/14/19 Office Visit Keny Saldaña APN, CNP [facility] 05/22/19 Telemedicine Keny Saldaña APN, MARY [facility] 02/12/19 Office Visit Nicolas Greer MD [facility] 11/05/18 Office Visit Nicolas Greer MD [facility] Showing recent visits within past 460 days with a meds authorizing provider and meeting all other requirements Future Appointments No visits were found meeting these conditions. Showing future appointments within next 90 days with a meds authorizing provider and meeting all other requirements sertraline (ZOLOFT) 50 MG Tablet [Pharmacy Med Name: Sertraline HCl 50 MG Oral Tablet] 90 Tab 0 Sig: Take 1 tablet by mouth once daily Not Delegated - Psychiatry: Antidepressants Failed - 02/07/2020 10:37 AM Failed - This refill cannot be delegated Passed - Valid encounter within last 12 months Past Office Visits Recent Outpatient Visits 3 months ago Hyperlipidemia, unspecified hyperlipidemia type [facility] - Nicolas Waters MD 6 months ago Pulmonary emphysema, unspecified emphysema type (HCC) [facility] - Keny Crowder APN, CNP 8 months ago Ptosis of both eyelids [facility] - Keny Crowder APN, CNP 12 months ago Hypothyroidism, unspecified type [facility] - Nicolas Waters MD 1 year ago Non-insulin dependent type 2 diabetes mellitus (HCC) [facility] - Nciolas Waters MD Upcoming Appointments JEWELRY ENGRAVER - Recent and Past Visits Recent Visits Date Type Provider Dept 10/14/19 Office Visit Nicolas Greer MD [facility] 07/14/19 Office Visit Keny Saldaña APN, MARY [facility] 05/22/19 Telemedicine Keny Saldaña APN, MARY [facility] [place] 02/12/19 Office Visit Nicolas Greer MD [facility] 11/05/18 [facility] Show[facility] recent visits within past 460 days with a meds authorizing provider and meeting all other requirements Future Appointments No visits were found meeting these conditions. Showing future appointments within next 90 days with a meds authorizing provider and meeting all other requirements metFORMIN (GLUCOPHAGE) 500 MG Tablet [Pharmacy Med Name: metFORMIN HCl 500 MG Oral Tablet] 90 Tab 0 Sig: Take 1 tablet by mouth daily Endocrinology: Diabetes - Biguanides Failed - 02/07/2020 10:37 AM Failed - Last BP in normal range BP Readings from Last 1 Encounters: 10/14/19 146/90 Passed - Valid encounter within last 12 months Past Office Visits Recent Outpatient Visits 3 months ago Hyperlipidemia, unspecified hyperlipidemia type [facility] - Nicolas Waters MD 6 months ago Pulmonary emphysema, unspecified emphysema type (HCC) [facility] - Keny Crowder APN, COOPERATIVE EXTENSION AGENT 8 months ago Ptosis of both eyelids [facility] - Keny Crowder APN, COOPERATIVE EXTENSION AGENT 12 months ago Hypothyroidism, unspecified type [facility] - Nicolas Waters MD 1 year ago Non-insulin dependent type 2 diabetes mellitus (HCC) [facility] - Nicolas Waters MD Upcoming Appointments JEWELRY ENGRAVER - Recent and Past Visits Recent Visits Date Type Provider Dept 10/14/19 Office Visit [facility] 07/14/19 Office Visit Keny Saldaña APN, MARY [facility] [place] 05/22/19 Telemedicine Keny Saldaña APN, MARY [facility] 02/12/19 [facility] 11/05/18 Office Visit Nicolas Greer MD [facility] Showing recent visits within past 460 days with a meds authorizing provider and meeting all other requirements Future Appointments No visits were found meeting these conditions. Showing future appointments within next 90 days with a meds authorizing provider and meeting all other requirements ARCH SPECIALIST documented in this encounter Plan of Treatment Upcoming Encounters Date Type Department Care Team (Late st Contact Info) Description 04/24/2024 2:00 PM CDT Office Visit [facility] Endocrinology - [place] #2 [place] [address] Chetan Do MD #[address] [address] 08/14/2024 1:00 PM CDT Office Visit [facility] - Pulmonology & [facility] Medicine [facility] #2 [place] [address] Raghu Green MD #2 [place] [address] 09/17/2024 1:00 PM CDT Office Visit [facility] - Family [facility] - [place] #2 [place] [address] Nicolas Greer MD #[address] [address] documented as of this encounter Visit Diagnoses Diagnosis Depression with anxiety Dysthymic disorder documented in this encounter Additional Health Concerns Infection Onset Date Last Indicated Resolved Time COVID - 19 03/11/2020 03/11/2020 03/31/2020 12:1 8 AM RESEARCH SPECIALIST COVID - 19 09/02/2021 09/02/2021 09/03/2021 2:05 PM CDT COVID - 19 12/24/2021 12/24/2021 12/26/2021 8:07 AM RESEARCH SPECIALIST Respiratory Rule Out - RPA 12/24/2021 12/24/2021 1 02/24/2021 4:41 PM RESEARCH SPECIALIST Influenza 12/24/2021 12/24/2021 12/31/2021 12:1 6 AM RESEARCH SPECIALIST Assessment Noted Time PHQ-9 Depression Total Score: 0 02/12/19 20 10:45 AM RESEARCH SPECIALIST documented as of this encounter Care Teams [place] Boat[place] Relationship Specialty Start Date End Date Nicolas Greer MD #[address] [address] PCP - General Family Medicine 12/22/14 09/07/21 Nicolas Greer MD #[address] [address] PCP - General Family Medicine 09/08/21 Ariel Christiansen MD #[address] [address] Consulting Physician Cardiovascular Disease - Cardiology 07/19/16 [place] [address] [facility] [address] [place] [address] Dowel Sticker Operator Pulmonary Disease 06/18/20 Keny Saldaña, DATA SYSTEMS ANALYST, COOPERATIVE EXTENSION AGENT #[address] [address] Nurse Practitioner Advanced Practice Nurse 09/08/21 Cristian Dewitt MD #[address] [address] Consulting Physician Cardiovascular Disease - Cardiology 10/06/21 02/07/24 Ale Spain, RN [place] Evidence Specialist 03/15/22 02/12/23 Ale Spain, RN [place] Nurse Evidence Specialist 03/15/22 02/13/23 Yamel Kurtz III, MD #2 [place] [address] Consulting Physician Urology 09/11/22 Raghu Green MD #2 [place] [address] Consulting Physician Pulmonary Disease 01/04/22 Warren Osborn MD #[address] [address] Consulting Physician Colon and Rectal Surgery 05/21/23 Ale Spain, RN [place] Nurse Evidence Specialist 09/05/23 Chetan Do MD #[address] [address] Consulting Physician Endocrinology 01/23/24 documented as of this encounter
--- OUTSIDE RECORDS SUMMARY | 2024-03-24 13:02 | XMS_ITS | Encounter Summary ---
Author Organization [facility] Address [address] [place] [address] Phone Care Team Providers Care Nnps Name Role Phone Ariel Christiansen MD Unavailable [phone] Parmjit Vogel MD Unavailable [phone] Nicolas Greer MD Primary Care Provider [phone] Keny Saldaña APRN, MARY Unavailable Cristian Dewitt MD Unavailable Kate Kurtz III, MD, Courtney Unavailable [phone] Raghu Green MD Unavailable Warren Osborn MD Unavailable Ale Spain RN Unavailable Unavailable Chetan Do MD Unavailable Reason for Visit * Reason Comments Medication Refill Encounter Details Date Type Department Care Team (Late st Contact Info) Description 06/21/2023 [facility]ill [facility] #2 [place] [address] Nicolas Greer MD #[address] [address] Medication Refill Social History Tobacco Use Types Packs/Day Years Used Date Smoking Tobacco: Former Cigarettes 0.5 50 1 957 - 2006 Smokeless Tobacco: Never Alcohol Use Standard Drinks/Week Comments No 0 (1 standard drink = 0.6 oz pur e alcohol) [facility] Utilities Answer Date Recorded In the [...] declined 04/04/2023 How often do you attend hindu or shinto serv ices? Patient declined 04/04/2023 Do you [...] Total Score - Questions 1-9 0 09/05 [facility] - Occupational [...] place to sleep or slept in a nursing home (including now)? Patient declined 04/04/2023 Education Answer [...] Job Start Date Job End Date Retired [employer] Not on file Not on file Not on file documented as of this encounter Miscellaneous Notes * Telephone Encounter - Nicolle Funk RN - 06/22/2023 10:30 AM CDT Lovastatin - pt reported on 05/31/23 she is taking 40 mg daily NOT 20 mg as previously ordered. Medication failed the protocol, provider to review and approve the medication order if appropriate. Requested Prescriptions Pending Prescriptions Disp Refills Aspirin Low Dose 81 MG Tablet Delayed Response [Pharmacy Med Name: ASPIRIN EC 81 MG TABLET] 90 Tablet 2 Sig: TAKE 1 TABLET BY MOUTH DAILY. #1000 Platelet Inhibitors Protocol Failed - 06/21/2023 4:37 PM Failed - CBC on record in the past [...] 07/18/22 Telemedicine Nicolas Greer MD [facility] Showing [...] DAILY #2000 Gout Agents Protocol Failed - 06/21/2023 4:37 PM Failed - Uric acid on record in past 12 months URIC ACID Date Value Ref Range Status 08/05/2021 4.1 2.4 - 5.7 mg/dL Final Failed - Serum creatinine on record in past 12 months CREATININE - POCT Date Value Ref Range Status 04/06/2022 1.2 0.6 - 1.3 mg/dL Final CREATININE, BLOOD Date Value Ref Range Status 04/06/2022 1.11 (H) 0.60 - 1.10 mg/dL Final Passed - Visit with relevant provider in past 12 months or upcoming 90 days Recent Visits Date Type Provider Dept 04/04/23 Office Visit Nicolas Greer MD [facility] 12/21/22 Telemedicine Nicolas Greer MD [facility] 09/21/22 Office Visit Nicolas Greer MD [facility] 07/18/22 Telemedicine Nicolas Greer MD [facility] Showing [...] (6 Month Refill Only) Protocol Passed - 06/21/2023 4:37 PM Passed - Visit with relevant provider [...] adjustment disorder, OCD, or PTSD visit diagnosis potassium chloride CR (KLORCON) 10 MEQ Tablet Controlled Release [Pharmacy Med Name: POTASSIUM CL ER 10 MEQ TABLETS] 180 Tablet 2 Sig: TAKE TWO TABLETS BY MOUTH DAILY #2000 Potassium Supplement Protocol Failed - 06/21/2023 4:37 PM Failed - Normal serum potassium in past [...] 07/18/22 Telemedicine Nicolas Greer MD [facility] Showing recent visits within past 365 days and meeting all other requirements Future Appointments Date Type Provider Dept 07/18/23 Appointment Nicolas Greer MD [facility] Showing future appointments within next 90 days and meeting all other requirements lovastatin (MEVACOR) 40 MG Tablet [Pharmacy Med Name: LOVASTATIN 40 MG TABLET] 90 Tablet 2 Sig: Take 1 Tablet by mouth daily. Hmg CoA Reductase Inhibitors Protocol Failed - 06/21/2023 4:37 PM Failed - Lipid panel in past 12 [...] Status 08/05/2021 133.1 (H) <130 mg/dL Final Failed - CMP in past 12 months SODIUM [...] (CKD- EPI) equation refitwithout adjustment for race. Passed - Visit with relevant provider in past 12 months or upcoming 90 days Recent Visits Date Type Provider Dept 04/04/23 Office Visit Nicolas Greer MD [facility] 12/21/22 Telemedicine Nicolas Greer MD [facility] 09/21/22 Office Visit Nicolas Greer MD [facility] 07/18/22 Telemedicine Nicolas Greer MD [facility] Showing [...] Description 04/24/2024 2:00 PM CDT Office Visit [facility] - Endocrinology - [place] #2 [place] [address] Chetan Do MD #[address] [address] 08/14/2024 1:00 PM CDT Office Visit [facility] - Pulmonology & [facility] #2 [place] [address] Raghu Green MD #2 [place] [address] 09/17/2024 1:00 PM CDT Office Visit [facility] #2 [place] [address] Nicolas Greer MD #[address] [address] documented as of this encounter Visit Diagnoses Diagnosis Depression with anxiety Dysthymic disorder documented in this encounter Additional Health Concerns Assessment Noted Time PHQ-9 Depression Total Score: 0 09/22/19 23 1:48 PM CDT documented as of this encounter Care Teams Nnps Relationship Specialty Start Date End Date Nicolas Greer MD #[address] [address] PCP - General Family Medicine 09/08/21 Ariel Christiansen MD Consulting Physician Cardiovascular Disease - Cardiology 07/19/16 [place] [id number] [address] Temporary Help Agency Referral Clerk Pulmonary Disease 06/18/20 Keny Saldaña APRN, PATHOLOGY SECRETARY #[address] [address] Nurse Practitioner Advanced Practice Nurse 09/08/21 Cristian Dewitt MD #[address] [address] Consulting Physician Cardiovascular Disease - Cardiology 10/06/21 02/07/24 Yamel Kurtz III, MD #2 [place] [address] Consulting Physician Urology 09/11/22 Raghu Green MD #2 [place] [address] Consulting Physician Pulmonary Disease 01/04/22 Warren Osborn MD #[address] [address] Consulting Physician Colon and Rectal Surgery 05/21/23 Ale Spain, [place] Nurse Client Relation Specialist 09/05/23 Chetan Do MD #[address] [phone] Consulting Physician Endocrinology 01/23/24 documented as of this encounter
--- OUTSIDE RECORDS SUMMARY | 2024-03-24 13:02 | XMS_ITS | Encounter Summary ---
Author Organization [facility] Address [address] [place] [address] Phone Care Team Providers Care Feather Cutting Machine Feeder Name Role Phone Ariel Christiansen MD Unavailable [phone] Parmjit Vogel MD Unavailable [phone] Nicolas Greer MD Primary Care Provider [phone] Keny Saldaña APRN, PRODUCT DEMONSTRATOR Unavailable Cristian Dewitt MD Unavailable Unaruslani Ale Richard RN Unavailable Unavailable Ale Spain RN Unavailable Unavailable Jerardo MCCANN MD, Courtney Unavailable [phone] Raghu Green MD Unavailable Warren Osborn MD Unavailable Ale Spain RN Unavailable Unavailable Chetan oD MD Unavailable Encounter Details Date Type Department Care Team (Late st Contact Info) Description 02/15/2022 Lab [facility] [address] [place] [id number] Nicolas Greer MD #[address] [address] Anemia, unspecified Social History Tobacco Use Types [...] Job Start Date Job End Date Retired [employer] Not on file Not on file Not on file COVID-19 Exposure Response Date Recorded In the last 10 days, have yo u been in contact with someone who was confirmed or suspected to have Coronavirus/COVID-19? No / Unsure 02/15/2022 10:32 AM ASSISTANT DIRECTOR OF ADMISSIONS documented as of this encounter Plan of Treatment Upcoming Encounters Date Type Department Care Team (Late st Contact Info) Description 04/24/2024 2:00 PM CDT Office Visit [facility] - Endocrinology - [place] #2 [place] [address] Chetan Do MD #[address] [address] 08/14/2024 1:00 PM CDT Office [facility] - Pulmonology & Sleep Medicine [facility] #2 [place] [address] Raghu Green MD #2 [place] [address] 09/17/2024 1:00 PM CDT Office Visit [facility] Medicine - [place] #2 [place] [address] Nicolas Greer MD #[address] [address] documented as of this encounter Procedures Procedure Name Priority Date/Time Associated Diagnosis Comments THYROXINE (T4) FREE Routine 02/15/2022 1 1:02 AM ASSISTANT DIRECTOR OF ADMISSIONS Anemia, unspecified IRON (FE) Routine 02/15/2022 11:02 AM ASSISTANT DIRECTOR OF ADMISSIONS Anemia, unspecified IONIZED CALCIUM (ICA) Routine 02/15/2022 11:02 AM ASSISTANT DIRECTOR OF ADMISSIONS Anemia, unspecified documented in this encounter Results * THYROXINE (T4) FREE (02/15/2022 11:02 AM ASSISTANT DIRECTOR OF ADMISSIONS) T4 FREE 1.4 0.9 - 1.7 ng/dL 02/15/2022 1:10 PM ASSISTANT DIRECTOR OF ADMISSIONS [facility] Blood No Phlebotomy Charged / Unknown 02/15/2022 11:02 AM ASSISTANT DIRECTOR OF ADMISSIONS 02/15/2022 12:34 PM ASSISTANT DIRECTOR OF ADMISSIONS Nicolas Greer MD CHEMISTRY ORDERABLES Final Result Performing Organization Address City/[facility]/ZIP Co de Phone Number [facility] #1 [facility] [place] [address] * (ABNORMAL) IRON (FE) (02/15/2022 11:02 AM ASSISTANT DIRECTOR OF ADMISSIONS) IRON 146.88(H) 37 - 145 mcg/dL 02/15/2022 1:03 PM ASSISTANT DIRECTOR OF ADMISSIONS [facility] Blood No Phlebotomy Charged / Unknown 02/15/2022 11:02 AM ASSISTANT DIRECTOR OF ADMISSIONS 02/15/2022 12:34 PM ASSISTANT DIRECTOR OF ADMISSIONS Nicolas Greer MD CHEMISTRY ORDERABLES Final Result [facility] #1 [place] [address] * (ABNORMAL) IONIZED CALCIUM (ICA) (02/15/2022 11:02 AM ASSISTANT DIRECTOR OF ADMISSIONS) CALCIUM IONIZED 1.35(H) 1.19 - 1.31 mmol/L 02/15/2022 12:52 PM ASSISTANT DIRECTOR OF ADMISSIONS [facility] Blood No Phlebotomy Charged / Unknown 02/15/2022 11:02 AM ASSISTANT DIRECTOR OF ADMISSIONS 02/15/2022 12:34 PM ASSISTANT DIRECTOR OF ADMISSIONS Nicolas Greer MD CHEMISTRY ORDERABLES Final Result [facility] #1 [place] [address] documented in this encounter Visit Diagnoses Diagnosis Anemia, unspecified documented in this encounter Additional Health Concerns Assessment Noted Time PHQ-9 Depression Total Score: 0 02/12/19 20 10:45 AM ASSISTANT DIRECTOR OF ADMISSIONS documented as of this encounter Care Teams Feather Cutting Machine Feeder Relationship Specialty Start Date End Date Nicolas Greer MD #[address] [address] PCP - General Family Medicine 09/08/21 Ariel Christiansen MD Consulting Physician Cardiovascular Disease - Cardiology 07/19/16 [place] [id number] [address] Arm Maker Pulmonary Disease 06/18/20 Keny Saldaña APRN, PRODUCT DEMONSTRATOR #[address] [address] Nurse Practitioner Advanced Practice Nurse 09/08/21 Cristian Dewitt MD #[address] [address] Consulting Physician Cardiovascular Disease - Cardiology 10/06/21 02/07/24 Ale Spain, RN [place] Space Studies Faculty Member 03/15/22 02/12/23 Ale Spain, RN [place] Nurse Space Studies Faculty Member 03/15/22 02/13/23 Yamel Kurtz III, MD #2 [place] [address] Consulting Physician Urology 09/11/22 Raghu Green MD #2 [place] [address] Consulting Physician Pulmonary Disease 01/04/22 Warren Osborn MD #[address] [address] Consulting Physician Colon and Rectal Surgery 05/21/23 Ale Spain, [place] Nurse Space Studies Faculty Member 09/05/23 Chetan Do MD #[address] [address] Consulting Physician Endocrinology 01/23/24 documented as of this encounter
--- OUTSIDE RECORDS SUMMARY | 2024-03-24 13:03 | XMS_ITS | Encounter Summary ---
Author Organization [facility] Address [address] [place] [address] Phone Care Team Providers Care Tobacco Dipper Name Role Phone Ariel Christiansen MD Unavailable [phone] Parmjit Vogel MD Unavailable [phone] Nicolas Greer MD Primary Care Provider [phone] Keny Saldaña APRN, MARY Unavailable Cristian Dewitt MD Unavailable Kate Kurtz III, MD, Courtney Unavailable [phone] Raghu Green MD Unavailable Warren Osborn MD Unavailable Ale Spain RN Unavailable Unavailable Chetan Do MD Unavailable Reason for Visit * Reason Comments Medication Refill Encounter Details Date Type Department Care Team (Late st Contact Info) Description 08/16/2023 Refill [facility] #2 [place] [address] Nicolas Greer MD #[address] [address] Medication Refill Social History Tobacco Use Types Packs/Day Years Used Date Smoking Tobacco: Former Cigarettes 0.5 50 1 957 - 2007 Smokeless Tobacco: Never Alcohol Use Standard Drinks/Week Comments No 0 (1 standard drink = 0.6 oz pur e alcohol) [facility] Utilities Answer Date Recorded In the past [...] declined 07/17/2023 How often do you attend caodaism or sabianism serv ices? Patient declined 07/17/2023 Do you belong to any clubs o r organizations such as caodaism groups, unions, fraternal or athletic groups, or [...] Total Score - Questions 1-9 0 09/05 [facility] - Occupational Stress [...] a prison (including now)? Patient declined 04/04/2023 Housing Stability Vital Sign Answer Yuri e Recorded In the last 12 months, was t here a time when you were not able to pay the mortgage or rent on time? No 07/17/2023 Number of Times Moved in the Last Year Not on fi le 07/17/2023 At any time in the past 12 m [facility], were you homeless or living in a prison (including now)? No 07/17/2023 Education Answer Date [...] Job Start Date Job End Date Retired [employer] Not on file Not on file Not on file documented as of this encounter Plan of Treatment Upcoming Encounters Date Type Department Care Team (Late st Contact Info) Description 04/24/2024 2:00 PM CDT Office Visit [facility] - Endocrinology - [place] #2 [facility] [place] [address] Chetan Do MD #2 [facility] [address] [place] [address] 08/14/2024 1:00 PM CDT Office Visit [facility] - Pulmonology & Sleep Medicine - [place] #2 [facility] [place] [address] Raghu Green MD #2 [place] [address] 09/17/2024 1:00 PM CDT Office Visit [facility] - [place] #2 [facility] [place] [address] Nicolas Greer MD #[address] [place] [address] documented as of this encounter Visit Diagnoses Diagnosis Mixed stress and urge urinary incontinence Mixed incontinence urge and stress (male)(female) documented in this encounter Additional Health Concerns Assessment Noted Time PHQ-9 Depression Total Score: 0 09/22/19 23 1:48 PM CDT documented as of this encounter Care Teams Tobacco Dipper Relationship Specialty Start Date End Date Nicolas Greer MD #[address] [address] PCP - General Family Medicine 09/08/21 Ariel Christiansen MD Consulting Physician Cardiovascular Disease - Cardiology 07/19/16 [place] [address] [address] Mechanic Driver Pulmonary Disease 06/18/20 Keny Saldaña APRN, CLOSING SUPERVISOR #[address] [address] Nurse Practitioner Advanced Practice Nurse 09/08/21 Cristian Dewitt MD #[address] [address] Consulting Physician Cardiovascular Disease - Cardiology 10/06/21 02/07/24 Yamel Kurtz III, MD #[address] [place] [address] Consulting Physician Urology 09/11/22 Raghu Green MD #[address] [place] [address] Consulting Physician Pulmonary Disease 01/04/22 Warren Osborn MD #[address] [address] Consulting Physician Colon and Rectal Surgery 05/21/23 Ale Spain, [place] Nurse Welding Setter 09/05/23 Chetan Do MD #[address] [phone] Consulting Physician Endocrinology 01/23/24 documented as of this encounter
--- OUTSIDE RECORDS SUMMARY | 2024-03-24 13:03 | XMS_ITS | Encounter Summary ---
Author Organization [facility] Address [address] [place] [address] Phone Care Team Providers Care Gravel Hauler Name Role Phone Ariel Christiansen MD Unavailable [phone] Parmjit Vogel MD Unavailable [phone] Nicolas Greer MD Primary Care Provider [phone] Keny Saldaña APRN, MARY Unavailable Cristian Dewitt MD Unavailable Kate Kurtz III, MD, Courtney Unavailable [phone] Raghu Green MD Unavailable Warren Osborn MD Unavailable Ale Spain RN Unavailable Unavailable Chetan Do MD Unavailable Reason for Visit * Reason Comments Medication Refill Encounter Details Date Type Department Care Team (Late st Contact Info) Description 07/20/2023 Refill [facility] #2 [place] [address] Nicolas Greer MD #[address] [address] Medication Refill Social History Tobacco Use Types Packs/Day Years Used Date Smoking Tobacco: Former Cigarettes 0.5 50 1 957 - 2007 Smokeless Tobacco: Never Alcohol Use Standard Drinks/Week Comments No 0 (1 standard drink = 0.6 oz pur e alcohol) [facility] Utilities Answer Date Recorded In the [...] declined 07/17/2023 How often do you attend muslim or taoist serv ices? Patient declined 07/17/2023 Do you belong to any clubs o r organizations such as muslim groups, unions, fraternal or athletic groups, or [...] Total Score - Questions 1-9 0 09/05 [facility] - Occupational [...] place to sleep or slept in a jail (including now)? Patient declined 04/04/2023 Housing Stability [...] were you homeless or living in a jail (including now)? 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 Requested Prescriptions Pending Prescriptions Disp Refills esomeprazole (NexIUM) 40 MG CAPSULE DELAYED RELEASE [Pharmacy Med Name: ESOMEPRAZOLE MAG DR 40 MG CAP] 90 Capsule 1 Sig: TAKE ONE CAPSULE BY MOUTH DAILY BEFORE BREAKFAST #1000 Proton Pump Inhibitors Protocol Passed - 07/20/2023 9:48 AM Passed - Visit with relevant provider in past 12 months or upcoming 90 days Recent Visits Date Type Provider Dept 07/18/23 Office Visit Nicolas Greer MD [facility] 04/04/23 Office Visit Nicolas Greer MD [facility] 12/21/22 Telemedicine Nicolas Greer MD [facility] 09/21/22 Office Visit Nicolas Greer MD [facility] Showing recent visits within past 365 days and meeting all other requirements Future Appointments No visits were found meeting these conditions. Showing future appointments within next 90 days and meeting all other requirements documented in this encounter Plan of Treatment Upcoming Encounters Date Type Department Care Team (Late st Contact Info) Description 04/24/2024 2:00 PM CDT Office Visit [facility] - Endocrinology - [place] #2 [place] [address] Chetan Do MD #[address] [address] 08/14/2024 1:00 PM CDT Office Visit [facility] - Pulmonology & Sleep Medicine - [place] #2 [place] [address] Raghu Green MD #2 [place] [address] 09/17/2024 1:00 PM CDT [facility] Visit [facility] [place] #2 [place] [address] Nicolas Greer MD #[address] [address] documented as of this encounter Visit Diagnoses Not on filedocumented in this encounter Additional Health Concerns Assessment Noted Time PHQ-9 Depression Total Score: 0 09/22/19 23 1:48 PM CDT documented as of this encounter Care Teams Gravel Hauler Relationship Specialty Start Date End Date Nicolas Greer MD #[address] [address] PCP - General Family Medicine 09/08/21 Ariel Christiansen MD Consulting Physician Cardiovascular Disease - Cardiology 07/19/16 [place] [address] [address] System Operation Superintendent Pulmonary Disease 06/18/20 Keny Saldaña, PRECISION AGRONOMIST, DIRECTOR OF ANALYTICS #[address] [address] Nurse Practitioner Advanced Practice Nurse 09/08/21 Cristian Dewitt MD #[address] [address] Consulting Physician Cardiovascular Disease - Cardiology 10/06/21 02/07/24 Yamel Kurtz III, MD #2 [place] [address] Consulting Physician Urology 09/11/22 Raghu Green MD #2 [place] [address] Consulting Physician Pulmonary Disease 01/04/22 Warren Osborn MD #[address] [address] Consulting Physician Colon and Rectal Surgery 05/21/23 Ale Spain, [place] Nurse Cleaning Professional 09/05/23 Chetan Do MD #[address] [address] Consulting Physician Endocrinology 01/23/24 documented as of this encounter
--- OUTSIDE RECORDS SUMMARY | 2024-03-24 13:03 | XMS_ITS | Encounter Summary ---
Author Organization [facility] Address [address] [place] [place] [address] Phone Care Team Providers Care Frame Welder Cargo Utility Trailers Name Role Phone Ariel Christiansen MD Unavailable [phone] Parmjit Vogel MD Unavailable [phone] Nicolas Greer MD Primary Care Provider [phone] Keny Saldaña APRN, MARY Unavailable Cristian Dewitt MD Unavailable Kate Kurtz III, MD, Courtney Unavailable [phone] Raghu Green MD Unavailable Warren Osborn MD Unavailable Ale Spain RN Unavailable Unavailable Chetan Do MD Unavailable Reason for Visit * Reason Comments Medication Refill Encounter Details Date Type Department Care Team (Late st Contact Info) Description 07/27/2023 Refill [facility] - Family Medicine [facility] #2 [place] [address] Nicolas Greer MD #[address] [address] Medication Refill Social History Tobacco Use Types Packs/Day Years Used Date Smoking Tobacco: Former Cigarettes 0.5 50 1 957 - 2007 Smokeless Tobacco: Never Alcohol Use Standard Drinks/Week Comments No 0 (1 standard drink = 0.6 oz pur e alcohol) [facility] Utilities Answer Date Recorded In the [...] declined 07/17/2023 How often do you attend jehovah's witness or gnosticism serv ices? Patient declined 07/17/2023 Do you belong to any clubs o r organizations such as jehovah's witness groups, unions, fraternal or athletic groups, or [...] Total Score - Questions 1-9 0 09/05 [facility] - [...] nursing home (including now)? Patient declined 04/04/2023 Housing Stability Vital Sign Answer Yuri e Recorded In the last 12 months, was t here a time when you were not able to pay the mortgage or rent on time? No 07/17/2023 Number of Times Moved in the Last Year Not on fi le 07/17/2023 At any time in the past 12 m [facility], were you homeless or living in a nursing home (including now)? No 07/17/2023 Education Answer Date [...] Job Start Date Job End Date Retired [employer] Not on file Not on file Not on file documented as of this encounter Miscellaneous Notes * Telephone Encounter - Lizbet Hopkins RN - 07/27/2023 3:29 PM CDT Per nursing clinical judgement, provider to review and approve the medication(s) order(s) if appropriate. Requested Prescriptions Pending Prescriptions Disp Refills ipratropium-albuterol (DUO-NEB) 0.5-2.5 (3) MG/3ML Solution [Pharmacy Med Name: IPRAT-ALBUT 0.5-3(2.5) MG/3 ML] 360 mL 2 Sig: INHALE THE CONTENTS OF ONE VIAL PER NEBULIZATION FOUR TIMES A DAY DIRECTED Inhaled Combinations Protocol Passed - 07/27/2023 1:50 PM Passed - Visit with relevant provider in past 12 months or upcoming 90 days Recent Visits Date Type Provider Dept 07/18/23 Office Visit Nicolas Greer MD [facility] 04/04/23 Office Visit Nicolas Greer MD [facility] 12/21/22 Telemedicine Nicolas Greer MD [facility] 09/21/22 Office Visit Nicolas Greer MD [facility] Showing recent visits within past 365 days and meeting all other requirements Future Appointments Date Type Provider Dept 10/25/23 Appointment Nicolas Greer MD [facility] Showing future appointments within next 90 days and meeting all other requirements Passed - Active short-acting beta agonist prescription albuterol 108 (90 Base) MCG/ACT Aerosol Solution [Pharmacy Med Name: ALBUTEROL HFA 90 MCG INHALER (AZ] 8.5 g 1 Sig: INHALE 2 PUFFS EVERY FOUR HOURS NEEDED FOR WHEEZING Short Acting Inhaled Beta-Agonists Protocol Passed - 07/27/2023 1:50 PM Passed - Visit with relevant provider in past 12 months or upcoming 90 days Recent Visits Date Type Provider Dept 07/18/23 Office Visit Nicolas Greer MD [facility] 04/04/23 Office Visit Nicolas Greer MD [facility] 12/21/22 Telemedicine Nicolas Greer MD [facility] 09/21/22 Office Visit [facility] Showing recent visits within past 365 days and meeting all other requirements Future Appointments Date Type Provider Dept 10/25/23 Appointment Nicolas Greer MD [facility] Showing future appointments within next 90 days and meeting all other requirements documented in this encounter Plan of Treatment Upcoming Encounters Date Type Department Care Team (Late st Contact Info) Description 04/24/2024 2:00 PM CDT Office Visit [facility] Medical [facility] - Endocrinology - [place] #2 [facility] [place] [address] Chetan Do MD #[address] [address] 08/14/2024 1:00 PM CDT Office Visit [facility] - Pulmonology & Sleep Medicine - [place] #[address] [place] [address] Raghu Green MD #2 [place] [address] 09/17/2024 1:00 PM CDT Office Visit [facility] Medical [facility] - Family Medicine - [place] #2 [place] [address] Nicolas Greer MD #[address] [place] [address] documented as of this encounter Visit Diagnoses Diagnosis Chronic obstructive pulmonary disease with acute exacerbation (HCC) Obstructive chronic bronchitis with exacerbation documented in this encounter Additional Health Concerns Assessment Noted Time PHQ-9 Depression Total Score: 0 09/22/19 1:48 PM CDT documented as of this encounter Care Teams Frame Welder Cargo Utility Trailers Relationship Specialty Start Date End Date Nicolas Greer MD #[address] [address] PCP - General Family Medicine 09/08/21 Ariel Christiansen MD Consulting Physician Cardiovascular Disease - Cardiology 07/19/16 [place] [address] [address] Lease Administration Supervisor Pulmonary Disease 06/18/20 Keny Saldaña APRN, LABORER FILTER PLANT #[address] [address] Nurse Practitioner Advanced Practice Nurse 09/08/21 Cristian Dewitt MD #[address] [address] Consulting Physician Cardiovascular Disease - Cardiology 10/06/21 02/07/24 Yamel Kurtz III, MD #2 [place] [address] Consulting Physician Urology 09/11/22 Raghu Green MD #2 [place] [id number] Consulting Physician Pulmonary Disease 01/04/22 Warren Osborn MD #[address] [address] Consulting Physician Colon and Rectal Surgery 05/21/23 Ale Spain RN [place] Nurse Bulk Coolers Installer 09/05/23 Chetan Do MD #[address] [phone] Consulting Physician Endocrinology 01/23/24 documented as of this encounter
--- OUTSIDE RECORDS SUMMARY | 2024-03-24 13:03 | XMS_ITS | Encounter Summary ---
Author Organization [facility] Address [address] [place] [address] Phone Care Team Providers Care Sock Turner Name Role Phone Ariel Christiansen MD Unavailable [phone] Parmjit Vogel MD Unavailable [phone] Nicolas Greer MD Primary Care Provider [phone] Keny Saldaña APRN, MARY Unavailable Cristian Dewitt MD Unavailable Kate Kurtz III, MD, Courtney Unavailable [phone] Raghu Green MD Unavailable Warren Osborn MD Unavailable Ale Spain RN Unavailable Unavailable Chetan Do MD Unavailable Reason for Visit * Reason Comments Medication Refill Encounter Details Date Type Department Care Team (Late st Contact Info) Description 12/16/2023 Refill [facility] - Family Medicine [facility] #2 [place] [address] Nicolas Greer MD #[address] [address] Medication Refill Social History Tobacco Use Types Packs/Day Years Used Date Smoking Tobacco: Former Cigarettes 0.5 50 1 957 - 2006 Smokeless Tobacco: Never Alcohol Use Standard Drinks/Week Comments No 0 (1 standard drink = 0.6 oz pur e alcohol) [facility] Utilities Answer Date Recorded In the past 12 months has e electric, gas, oil, or water company threatened to shut off services in your home? No 10/25/2023 Social Connection and Isolat ion Panel [NHANES] Answer Date Recorded In a typical week, how many times do you talk on the phone with family, friends, or neighbors? More than three times a week 10/25/2023 How often do you get togethe r with friends or relatives? Twice a week 10/25/2023 How often do you attend chur ch or latter-day services? Never 10/25/2023 Do you belong to any clubs o r organizations such as mosque groups, unions, fraternal or athletic groups, or school groups? No 10/25/2023 How often do you attend meet ings of the clubs or organizations you belong to? Never 10/25/2023 Are you , , di vorced, , never , or living with a partner? 10/25/2023 AUDIT-C Answer Date Recorded Q1: How often do you have a drink containing alcohol? Monthly or less 10/25/2023 Q2: How many drinks containi ng alcohol do you have on a typical day when you are drinking? Patient does not drink Q3: How often do you have si x or more drinks on one occasion? Never 10/25/2023 Overall Financial Resource Strain (CARDIA) Answe r Date Recorded How hard is it for you to pa y for the very basics like food, housing, medical care, and heating? Not hard at all 10/25/2023 PHQ-2 Answer Date Recorded Total Score - Questions 1-9 2 08/07 [facility] Health - Occupational Stress Questionnaire Answer Date Recorded Do you feel stress - tense, restless, nervous, or anxious, or unable to sleep at night because your mind is troubled all the time - these days? Only a little 10/25/2023 Exercise Vital Sign Answer Date Recorde d On average, how many days pe r week do you engage in moderate to strenuous exercise (like a brisk walk)? 1 day 10/25/2023 On average, how many minutes do you engage in exercise at this level? 10 min 10/25/2023 Hunger Vital Sign Answer Date Recorded Within the past 12 months, y ou worried that your food would run out before you got the money to buy more. Never true 10/25/19 24 Within the past 12 months, t he food you bought just didn't last and you didn't have money to get more. Never true 10/25/2023 PRAPARE - Transportation Answer Date Re corded In the past 12 months, has l ack of transportation kept you from medical appointments or from getting medications? No 10/06 In the past 12 months, has l ack of transportation kept you from meetings, work, or from getting things needed for daily living? No 10/25/2023 Housing Stability Vital Sign Answer Yuri e [...] place to sleep or slept in a assisted (including now)? Patient declined 04/04/2023 Housing Stability Vital Sign Answer Yuri e Recorded In the last 12 months, was t here a time when you were not able to pay the mortgage or rent on time? No 10/25/2023 In the past 12 months, how m any times have you moved where you were living? 0 10/25/2023 At any time in the past 12 m [facility], were you homeless or living in a assisted (including now)? No 10/25/2023 Education Answer Date Recorded What is the [...] Job Start Date Job End Date Retired [employer] Not on file Not on file Not on file documented as of this encounter Plan of Treatment Upcoming Encounters Date Type Department Care Team (Late st Contact Info) Description 04/24/2024 2:00 PM CDT Office Visit [facility] - Endocrinology - [place] #2 [place] [phone] Chetan Do MD #2 [facility] [address] [place] [phone] 08/14/2024 1:00 PM CDT Office Visit [facility] - Pulmonology & Sleep Medicine - [place] #2 [place] [phone] Raghu Green MD #2 [place] [phone] 09/17/2024 1:00 PM CDT Office Visit [facility] Medical [facility] - Family Medicine - [place] #2 [facility] [place] [phone] Nicolas Greer MD #2 [facility] [address] [place] [address] documented as of this encounter Goals Goal Patient Goal Type Associated Problems Recent Progress Patient-Stated? Author Become More Active Patient Goals On track(03/03/19 3:47 PM MACHINE CARTON MARKER) Yes Ale Spain, RN Note: Follow Up [...] documented as of this encounter Care Teams Sock Turner Relationship Specialty Start Date End Date Nicolas Grere MD #[address] [address] PCP - General Family Medicine 09/08/21 Ariel Christiansen MD Consulting Physician Cardiovascular Disease - Cardiology 07/19/16 [place] [id number] [address] Glycerin Supervisor Pulmonary Disease 06/18/20 Keny Saldaña APRN, COLLIERY CLERK #[address] [address] Nurse Practitioner Advanced Practice Nurse 09/08/21 Cristian Dewitt MD #[address] [address] Consulting Physician Cardiovascular Disease - Cardiology 10/06/21 02/07/24 Yamel Kurtz III, MD #2 [place] [address] Consulting Physician Urology 09/11/22 Raghu Green MD #2 [place] [phone] Consulting Physician Pulmonary Disease 01/04/22 Warren Osborn MD #[address] [address] Consulting Physician Colon and Rectal Surgery 05/21/23 Ale Spain, RN [place] Nurse Engineering Group Leader 09/05/23 Chetan Do MD #[address] [address] Consulting Physician Endocrinology 01/23/24 documented as of this encounter
== END 2024-03-24 10:07 | disposition home or self-care (01) ==
LOC: CHSLAB 10:08
PROVIDERS: PCP Family Medicine; Visit Provider Family Medicine
DX: E78.5 Hyperlipidemia, unspecified (principal); E11.9 Type 2 diabetes mellitus without complications
CPT/HCPCS: 36415; 80061; 83036

== ENCOUNTER 2024-03-31 11:13 | Outpatient (CLI) | payer MEDICARE, SELFPAY ==
[2024-03-31 11:31] LABS: Hemoglobin 11.2 g/dL (11.7-13.8); Mean Corpuscular HGB Conc 29.5 g/dL (32-36); Mean Corpuscular Hemoglobin 29.6 pg (27.0-31.0); Mean Corpuscular Volume 100.3 fL (78.0-102.0); Mean Platelet Volume 9.5 fl (9.2-11.8); Platelet Count Result 234 K/mm3 (150-420); Red Blood Count 3.79 M/mm3 (4.20-5.40); Red Cell Distribution Width 13.1 % (11.6-14.4); White Blood Count 8.4 K/mm3 (4.8-10.8)
[2024-03-31 11:50] LABS: Iron 70 ug/dL (50-170); Percent Iron Saturation 25 % (12-57); Uric Acid 3.9 mg/dL (2.6-6.0)
[2024-03-31 12:32] LABS: Creatinine Urine 57.88 mg/dL (40-278); MALB Creatinine Ratio 83.6 mg/g (0-30); Microalbumin Urine Random 48.4 mg/L
--- OUTSIDE RECORDS SUMMARY | 2024-03-31 13:13 | XMS_ITS | Clinical Summary ---
Author Organization [facility] Address [address] [address] Phone Care Team Providers Care Nurse College Name Role Phone Ariel Christiansen MD Unavailable [phone] Parmjit Vogel MD Unavailable Nicolas Greer MD Primary Care Provider [phone] Keny Saldaña APRN, RESIDENT CARE ASSOCIATE Unavailable Jerardo MCCANN MD, Courtney Unavailable [phone] Raghu Green MD Unavailable Warren Osborn MD [...] Department Care Team Description 03/21/2024 Patient Outreach [facility] HealthCare Biometrics Technician Management [address] [place] [address] Ale Spain RN 03/20/2024 4:00 PM ENVIRONMENTAL WEB CRAWLER Office Visit [facility] [address] [place] [address] Nicolas Greer MD Non-insulin dependent type 2 diabetes mellitus (HCC) (Primary Dx); Multiple lung nodules on CT; Depression, unspecified depression type; Hyperlipidemia, unspecified hyperlipidemia type Discharge Disposition: Discharged to home or Selfcare 03/20/2024 Travel 03/19/2024 Refill [facility] [address] [place] [address] Nicolas Greer MD Medication Refill 03/03/2024 Plan of Care Documentation [facility] HealthCare Biometrics Technician Management [address] [place] [address] 03/03/2024 Patient Outreach [facility] Biometrics Technician Management [address] [place] [address] Ale Spain, WALDO Care Management ([facility]) 02/20/2024 Refill [facility] [address] [place] [address] Nicolas Greer MD Medication Refill 02/14/2024 10:45 AM ENVIRONMENTAL WEB CRAWLER Office Visit [facility] Pulmonology & Sleep Medicine [facility] [address]2 [place] [address] Raghu Green MD Other emphysema (HCC) (Primary Dx); Chronic respiratory failure with hypoxia and hypercapnia (HCC); SANDRA on CPAP; Essential hypertension; Morbid obesity (<HCC>); Restless legs syndrome (RLS) Discharge Disposition: Discharged to home or Selfcare 02/14/2024 Travel 02/04/2024 Patient Outreach [facility] Biometrics Technician Management [address] [place] [address] Ale Spain, WALDO Care Management ([facility] ) 01/27/2024 Telephone [facility] Endocrinology [facility] [address] [place] [address] Chetan Do MD Results 01/25/2024 2:15 PM ENVIRONMENTAL WEB CRAWLER Office Visit [facility] Endocrinology [facility] [address] [place] [address] Nicolas Greer MD Tae, Wonil, MD Osteoporosis without current pathological fracture, unspecified osteoporosis type (Primary Dx); Hypercalcemia; Hyperparathyroidism (HCC); Morbid obesity (HCC) Discharge Disposition: Discharged to home or Selfcare 01/25/2024 Travel 01/14/2024 Refill [facility] [address] [place] [address] Nicolas Greer MD Medication Refill 01/01/2024 Patient Outreach [facility] Biometrics Technician Management [address] [place] [address] Ale Spain RN Care Management ([facility]) from Last 3 Months Immunizations Immunization Administration [...] Daughter Aneurysm Father Hypertension Father Cancer Mother [place] uterus Heart Attack Mother [place] Hypertension Mother [place] Ovarian Cancer Mother [place] Other-comment Sister 2 Diabetes Son Hypertension Son Rheumatoid Arthritis Neg Hx Relation Name Status Comments Brother 1 [place] Brother 2 Brother 3 Brother 4 Brother 5 Brother 6 Brother 7 Daughter Alive Father Mother [place] Sister 1 Alive Sister 2 Son Alive Social History Tobacco Use Types Packs/Day Years Used Date Smoking Tobacco: Former Cigarettes 0.5 50 1 957 - 2007 Smokeless Tobacco: Never Tobacco Cessation:Counseling Given: Yes Alcohol Use Standard Drinks/Week Comments No 0 (1 standard drink = 0.6 oz pur e alcohol) [facility] Utilities Answer Date Recorded In the [...] week 03/03/2024 How often do you attend uatsdin or yarsanism serv ices? Never 03/03/2024 Do you belong to any clubs o r organizations such as uatsdin groups, unions, fraternal or athletic groups, or [...] Total Score - Questions 1-9 0 02/06 [facility] [...] place to sleep or slept in a residential (including now)? Patient declined 04/04/2023 Housing Stability [...] any time in the past 12 m [facility], were you homeless or living in a residential (including now)? No 03/03/2024 Education Answer Date [...] Job Start Date Job End Date Retired [employer] Not on file Not on file Not on file Last Filed Vital Signs Vital Sign Reading Time Taken Comments Blood Pressure 130/72 03/20/2024 3:50 PM ENVIRONMENTAL WEB CRAWLER Pulse 102 03/20/2024 3:50 PM ENVIRONMENTAL WEB CRAWLER Temperature 36.1 C (96.9 F) 03/20/2024 3:50 PM ENVIRONMENTAL WEB CRAWLER Respiratory Rate 14 02/14/2024 11:08 AM ENVIRONMENTAL WEB CRAWLER Oxygen Saturation 95% 03/20/2024 3:50 PM ENVIRONMENTAL WEB CRAWLER Inhaled Oxygen Concentration - - Weight 106.1 kg (234 lb) 03/20/2024 3:50 PM ENVIRONMENTAL WEB CRAWLER Height 152.4 cm (5') 03/20/2024 3:50 PM ENVIRONMENTAL WEB CRAWLER Body Mass Index 45.7 03/20/2024 3:50 PM ENVIRONMENTAL WEB CRAWLER Plan of Treatment Upcoming Encounters Date Type Department Care Team (Late st Contact Info) Description 04/24/2024 2:00 PM CDT Office Visit [facility] Medical [facility] - Endocrinology - [place] [address] [place] [address] Chetan Do MD [address] [address] 08/14/2024 1:00 PM CDT Office Visit [facility] Medical [facility] - Pulmonology & Sleep Medicine - [place] [address]2 [facility] [address] Raghu Green MD [address]2 [place] [address] 09/17/2024 1:00 PM CDT Office Visit [facility] Medical Group - Family Medicine - [place] [address]2 [place] [address] Nicolas Greer MD [address] [address] Health Maintenance Due Date Last Done Comments Diabetes: Foot Exam 1950 TdaP Immunization 1950 Zoster Immunization (1 of 2) 01/27/1998 Diabetes: Eye Exam 06/08/2021 06/09/2019, 06/12/2017 Respiratory Syncytial Virus (RSV) Immunization (Adult) (1 - 1-dose 75+ series) 01/27/2023 Influenza Immunization (#1) 10/07/202312/06, 12/20/2020, 10/14/2019, Additional history exists SARS-COV-2 Immunization ( season) 2023 01/26/2021, 05/07/2020, 04/09/2020 Diabetes: Hemoglobin A1c 09/21/2024 025, 07/18/2023, 12/25/2021, Additional history exists Diabetes: Nephropathy Screening 01/24/2025 [...] Active Patient Goals On track(2024 3:47 PM ENVIRONMENTAL WEB CRAWLER) Yes Ale Spain RN Note: Follow Up [...] Symptoms Patient Goals On track(2024 3:51 PM ENVIRONMENTAL WEB CRAWLER) Yes Ale Spain RN Note: Follow Up [...] risk. Facilitate referral to pulmonary rehabilitation for oyqtdyyiq-bwmunbysh-cqtqcx training, improved exercise capacity, mood and quality [...] transplantation. Notes: Medical Devices Implanted Type Area Lime Sludge Kiln Operator Device Identifier Shelf Expiration Date Model / Serial / Lot Clip 360 Resolution 235cm - [id number] Implanted:Qty: 2 on 07/20/2017 by Hua Daily DO at [facility] IMPLANT N/A: Other [employer] 04/15/2020 [id number] / [id number] / [id number] Description:DISTAL ASCENDING COLON Procedures Procedure Name Priority Date/Time Associated Diagnosis Comments HEMOGLOBIN A1C W/ ESTIMATED GLUCOSE Routine 03/24/2024 12:00 AM ENVIRONMENTAL WEB CRAWLER Non-insulin dependent type 2 diabetes mellitus (HCC) LIPID PANEL Routine 03/24/2024 12:00 AM ENVIRONMENTAL WEB CRAWLER Hyperlipidemia, unspecified hyperlipidemia type CT - ABDOMEN/PELVIS 02/22/2024 1 2:00 AM ENVIRONMENTAL WEB CRAWLER VITAMIN D, 25 HYDROXY TOTAL Routine 01/25/2024 2:31 PM ENVIRONMENTAL WEB CRAWLER Osteoporosis without current pathological fracture, unspecified osteoporosis type Hypercalcemia PARATHYROID HORMONE PTH INTACT Routine 01/25/2024 2:31 PM ENVIRONMENTAL WEB CRAWLER Osteoporosis without current pathological fracture, unspecified osteoporosis type Hypercalcemia CMP (COMPREHENSIVE METABOLIC PANEL) Routine 01/25/2024 2:31 PM ENVIRONMENTAL WEB CRAWLER Osteoporosis without current pathological fracture, unspecified osteoporosis type Hypercalcemia UROLOGY CONSULT 01/14/2024 12:00 AM ENVIRONMENTAL WEB CRAWLER [facility] BONE DENSITOMETRY AXIAL SKELETON Routine 11/07/2023 1:18 PM CDT Postmenopausal CARLYN SCREENING BILATERAL DIGITAL W CAD Routine 10/12/2021 3:18 PM CDT Encounter for screening mammogram for malignant neoplasm of breast HM DILATED EYE EXAM Routine 06/12/2017 HEPATITIS C ANTIBODY Routine 02/22/2016 from Last 3 Months or Most Recently Relevant to Health Maintenance Results * HEMOGLOBIN A1C W/ ESTIMATED GLUCOSE (03/24/2024 12:00 AM ENVIRONMENTAL WEB CRAWLER) HGB-A1C 5.4 SCAN Blood Nicolas Greer MD CHEMISTRY ORDERABLES Final Result SCAN * LIPID PANEL (03/24/2024 12:00 AM ENVIRONMENTAL WEB CRAWLER) CHOLESTEROL 178 SCAN HDL CHOLESTEROL 57 SCAN LDL 92 SCAN Blood Nicolas Greer MD CHEMISTRY ORDERABLES Final Result SCAN * CT - ABDOMEN/PELVIS (02/22/2024 12:00 AM ENVIRONMENTAL WEB CRAWLER) 02/22/[address] ORDERABLES Final Result Performing Organization Address City/[facility]/ZIP Co de Phone Number SCAN * VITAMIN D, 25 HYDROXY TOTAL (01/25/2024 2:31 PM ENVIRONMENTAL WEB CRAWLER) Pathologist [facility] VITAMIN D, 25 HYDROX 37.7 ng/mL 01/25/2024 3:37 PM ENVIRONMENTAL WEB CRAWLER [facility] Blood Venipuncture / Unknown 01/25/2024 2:31 PM ENVIRONMENTAL WEB CRAWLER 01/25/2024 2:48 PM ENVIRONMENTAL WEB CRAWLER Narrative [facility] - 01/25/2024 3:37 PM ENVIRONMENTAL WEB CRAWLER Published reference ranges for Vitamin D vary depending on time and place and method of testing, and on patient's age, sex, ethnicity and levels of other measured analytes such as parathormone, calcium and phosphorus. The result should be evaluated in conjunction with clinical findings and suspicions. Wisdom of Medicine and Endocrine Clinical Practice Guidelines: Status Vitamin D levels (ng/mL) Deficient <=20 At risk of inadequacy 21-29 Sufficient 30-100 Centers of Disease Control and Prevention Guidelines: Status Vitamin D levels (ng/mL) Deficient <13 At risk of inadequacy 13-19 Sufficient 20-50 Possibly harmful >50 References: Wisdom of Medicine, 2010 Dietary reference intakes for calcium and vitamin D. Sheets [place]: The National Academies Press. Deni Brown, Wilfredo N, Belkis العراقي, et al., Evaluation, treatment, and prevention of Vitamin D deficiency: an Endocrinology Clinical Practice Guideline. JCEM 2011 96: 7 4831-4358. Roxana A, Wilton C, Juan D, et al., Vitamin D Status: [place], , [facility] data brief, no. 59, MD Mel: [facility] Statistics. 2011. us Chetan Do MD CHEMISTRY ORDERABLES Final Resul t Performing Organization Address City/[facility] Co de Phone Number [facility] [address] [place] [address] * (ABNORMAL) PARATHYROID HORMONE PTH INTACT (01/25/2024 2:31 PM ENVIRONMENTAL WEB CRAWLER) PTH INTACT 220(H) 13 - 85 pg/mL 01/25/2024 3:20 PM ENVIRONMENTAL WEB CRAWLER [facility] Blood Venipuncture / Unknown 01/25/2024 2:31 PM ENVIRONMENTAL WEB CRAWLER 01/25/2024 2:48 PM ENVIRONMENTAL WEB CRAWLER us Chetan Do MD CHEMISTRY ORDERABLES Final Resul t Performing Organization Address [facility] Co de Phone Number [facility] [address] [place] [address] * (ABNORMAL) CMP (COMPREHENSIVE METABOLIC PANEL) (01/25/2024 2:31 PM ENVIRONMENTAL WEB CRAWLER) SODIUM 143 136 - 145 mmol/L 01/25/2024 3:16 PM ENVIRONMENTAL WEB CRAWLER [facility] POTASSIUM 3.9 3.5 - 5.1 mmol/L 01/25/2024 3:16 PM ENVIRONMENTAL WEB CRAWLER [facility] CHLORIDE 96(L) 98 - 107 mmol/L 01/25/2024 3:16 PM [facility] CO2, VENOUS 38(H) 22 - 30 mmol/L 01/25/2024 3:16 PM [facility] ANION GAP 12.9 <18.0 mmol/L 01/25/2024 3:16 PM [facility] GLUCOSE 130(H) 70 - 99 mg/dL 01/25/2024 3:16 PM [facility] BUN 20 10 - 20 mg/dL 01/25/2024 3:16 PM [facility] CREATININE, BLOOD 1.01(H) 0.60 - 1.00 mg/dL 01/25/2024 3:16 PM [facility] BUN/CREATININE RATIO 20 12 - 20 ratio 01/25/2024 3:16 PM [facility] TOTAL PROTEIN 7.1 6.3 - 8.2 g/dL 01/25/2024 3:16 PM [facility] ALBUMIN 4.3 3.5 - 5.0 g/dL 01/25/2024 3:16 PM [facility] A/G RATIO 1.5 1.0 - 2.2 01/25/2024 3:16 PM [facility] CALCIUM 10.7(H) 8.7 - 10.5 mg/dL 01/25/2024 3:16 PM [facility] T BILI 0.4 0.2 - 1.2 mg/dL 01/25/2024 3:16 PM [facility] SGOT (AST) 14 5 - 34 U/L 01/25/2024 3:16 PM [facility] SGPT (ALT) 13 0 - 55 U/L 01/25/2024 3:16 PM [facility] ALKALINE PHOSPHATASE 88 40 - 150 U/L 01/25/2024 3:16 PM [facility] IS THE PATIENT REQUIRED TO BE FASTING? No 01/25/2024 3:16 PM [facility] GFR, ESTIMATED 58(L) >=60 01/25/2024 3:16 PM ENVIRONMENTAL WEB CRAWLER [facility] Comment: Creatinine Clearance is the preferred criteria for selecting drug dose adjustments in renally impaired patients. The GFR is provided as additional pertinent clinical information. GFR is reported in mL/min/1.73 sq m. Calculation based on the Chronic Kidney Disease Epidemiology Collaboration (CKD- EPI) equation refit without adjustment for race. GFR, EST. >60 >=60 024 3:16 PM ENVIRONMENTAL WEB CRAWLER [facility] GFR, EST. NONAFRICAN 53(L) >=60 01/25/2024 3:16 PM ENVIRONMENTAL WEB CRAWLER [facility] Blood Venipuncture / Unknown 01/25/2024 2:31 PM ENVIRONMENTAL WEB CRAWLER 01/25/2024 2:47 PM ENVIRONMENTAL WEB CRAWLER us Chetan Do MD CHEMISTRY ORDERABLES Final Resul t Performing Organization Address City/[facility] Co de Phone Number [facility] [address] [place] [address] * UROLOGY CONSULT (01/14/2024 12:00 AM ENVIRONMENTAL WEB CRAWLER) 01/14/2024 us Provider Scan GENERIC SCAN ORDERS CONSULT Jacqueline l Result Performing Organization Address [facility] Co de Phone Number SCAN * CARLYN BONE DENSITOMETRY AXIAL SKELETON (11/07/2023 1:18 PM [...] Narrative 11/07/2023 1:44 PM CDT EXAM DESCRIPTION: CARLYN BONE DENSITOMETRY AXIAL SKELETON REASON FOR STUDY: 73 y/o year old F with given history of: Post menopausal status. History secondary osteoporosis and COPD. Patient takes a multivitamin. Lime Sludge Kiln Operator/Model: [employer] ([id number]/N [id number]) CLINICAL INFORMATION: Current height: 60 inches Maximum [...] Melissa Crowe M.D. TW: TW Report ID: [id number] Reading Location: [id number] Procedure Note Melissa Crowe MD - 11/07/2023 EXAM DESCRIPTION: CARLYN BONE DENSITOMETRY AXIAL SKELETON REASON FOR STUDY: 73 y/o year old F with given history of: Post menopausal status. History secondary osteoporosis and COPD. Patient takes a multivitamin. Lime Sludge Kiln Operator/Model: [employer] (S/N [id number]) CLINICAL INFORMATION: Current height: 60 inches Maximum [...] Melissa Crowe M.D. TW: TW Report ID: [id number] Reading Location: [place] [address] IMPRESSION: Osteoporosis. REFERENCE: Bone mineral density: T-Score: [...] IMG DEXA ORDERABLES Final R esult * CARLYN SCREENING BILATERAL DIGITAL W CAD [...] Comparison is made to exams dated: 03/22/2015 [facility], 12/15/2013, and 09/19/2012 [facility]. BREAST TISSUE:There are scattered fibroglandular densities in [...] exam. Electronically signed by: Zelalem fox/justice:10/12/2021 17:06:55 It Quality Assurance Analyst(s): Dandy Cervantes)(M), [facility] letter sent: Normal Exam Reading location: [facility] [...] Comparison is made to exams dated: 03/22/2015 [facility], 12/15/2013, and 09/19/2012 [facility]. BREAST TISSUE:There are scattered fibroglandular densities in [...] exam. Electronically signed by: Zelalem fox/justice:10/12/2021 17:06:55 It Quality Assurance Analyst(s): Luis Carlos Cervantes(Sasha)(M), [facility] letter sent: Normal Exam Reading location: [facility] BI-RADS: 1 Negative us Keny Saldaña APRN, CNP IMG MAMMO ORDERA BLES Final Result * [...] Date Disease Progression (COPD) 03/03/2024 Insurance MEDICARE [facility] [place] [address] Advance Directives Documents on File Type Date Recorded Patient Specialty Plant Supervisor Expl anation Other Advance Directive 04/25/2017 9:18 [...] Steve Burrows Spouse Healthcare POA Care Teams Nurse College Relationship Specialty Start Date End Date Nicolas Greer MD [address] [address] PCP - General Family Medicine 09/08/21 Ariel Christiansen MD Consulting Physician Cardiovascular Disease - Cardiology 07/19/16 [place] [id number] [address] Supervisor Harvesting Pulmonary Disease 06/18/20 Keny Saldaña APRN, RESIDENT CARE ASSOCIATE #2 [facility] [address] [place] [address] Nurse Practitioner Advanced Practice Nurse 09/08/21 Yamel Kurtz III, MD #[address] [place] [address] Consulting Physician Urology 09/11/22 Raghu Green MD #[address] [place] [address] Consulting Physician Pulmonary Disease 01/04/22 Warren Osborn MD #[address] [address] Consulting Physician Colon and Rectal Surgery 05/21/23 Ale Spain, WALDO [place] Nurse Tubing Oiler 09/05/23 Chetan oD MD #[address] [phone] Consulting Physician Endocrinology 01/23/24
--- OUTSIDE RECORDS SUMMARY | 2024-03-31 13:13 | XMS_ITS | Encounter Summary ---
Author Organization [facility] Address [address] [place] [address] Phone Care Team Providers Care Hospital Clinic Assistant Name Role Phone Ariel Christiansen MD Unavailable [phone] Parmjit Vogel MD Unavailable [phone] Nicolas Greer MD Primary Care Provider [phone] Keny Saldaña APRN, NATIONAL SALES MANAGER Unavailable Cristian Dewitt MD Unavailable Ale Black RN Unavailable Unavailable Ale Spain RN Unavailable Unavailable Jerardo MCCANN MD, Courtney Unavailable [phone] Raghu Green MD Unavailable Warren Osborn MD Unavailable Ale Spain RN Unavailable Unavailable Chetan Do MD Unavailable Reason for Visit * Reason Comments Medication Refill Encounter Details Date Type Department Care Team (Late st Contact Info) Description 11/09/2021 Refill [facility] [address] [place] [address] Nicolas Greer MD #[address] [address] Medication Refill Social History Tobacco Use Types [...] Job Start Date Job End Date Retired [email or web address] Not on file Not on file Not [...] 09/08/21 Office Visit Keny Saldaña APRN, [facility] 08/03/21 Telemedicine Nicolas Greer MD Osrahul [...] Description 04/24/2024 2:00 PM CDT Office Visit [facility] Medical Group - Endocrinology - [place] [address] [place] [address] Chetan Do MD #[address] [phone] 08/14/2024 1:00 PM CDT Office Visit [facility] Medical [facility] - Pulmonology & Sleep Medicine - [place] [address] [place] [phone] Raghu Green MD #2 [place] [address] 09/17/2024 1:00 PM CDT Office Visit [facility] #2 [place] [address] Nicolas Greer MD #[address] [address] documented as of this encounter Visit Diagnoses Not on filedocumented in this encounter Additional Health Concerns Infection Onset Date Last Indicated Resolved Time COVID - 19 12/24/2021 12/24/2021 12/26/2021 8:07 AM GEOLOGICAL ENGINEER Respiratory Rule Out - RPA 12/24/2021 12/24/2021 1 02/24/2021 4:41 PM GEOLOGICAL ENGINEER Influenza 12/24/2021 12/24/2021 12/31/2021 12:1 6 AM GEOLOGICAL ENGINEER Assessment Noted Time PHQ-9 Depression Total Score: 0 02/12/19 10:45 AM GEOLOGICAL ENGINEER documented as of this encounter Care Teams Hospital Clinic Assistant Relationship Specialty Start Date End Date Nicolas Greer MD #[address] [address] PCP - General Family Medicine 09/08/21 Ariel Christiansen MD Consulting Physician Cardiovascular Disease - Cardiology 07/19/16 [place] [address] [address] Creative Services Specialist Pulmonary Disease 06/18/20 Keny Saldaña, SUGAR REPROCESS OPERATOR HEAD, NATIONAL SALES MANAGER #[address] [address] Nurse Practitioner Advanced Practice Nurse 09/08/21 Cristian Dewitt MD #[address] [address] Consulting Physician Cardiovascular Disease - Cardiology 10/06/21 02/07/24 Ale Spain, RN [place] Lavatory Attendant 03/15/22 02/12/23 Ale Spain, RN [place] Nurse Lavatory Attendant 03/15/22 02/13/23 Yamel Kurtz III, MD #2 [place] [address] Consulting Physician Urology 09/11/22 Raghu Green MD #2 [place] [address] Consulting Physician Pulmonary Disease 01/04/22 Warren Osborn MD #[address] [address] Consulting Physician Colon and Rectal Surgery 05/21/23 Ale Spain, WALDO [place] Nurse Lavatory Attendant 09/05/23 Chetan Do MD #[address] [phone] Consulting Physician Endocrinology 01/23/24 documented as of this encounter
--- OUTSIDE RECORDS SUMMARY | 2024-03-31 13:13 | XMS_ITS | Clinical Summary ---
Author Organization [facility] Facility Address [address] [address] Care Team Providers Care Director Voice Name Role Phone Nicolas Greer MD MPH Primary Care Provider [phone] Allergies No known active allergies Medications albuterol [...] and 20 mg in the evening. Active Budeson-Glycopy rrol-Formoterol (Breztri Aerosphere) 160-9-4.8 MCG/ACT aerosol Inhale Acti ve oxybutynin XL (DITROPAN-XL) 5 MG 24 hr [...] each day 90 tablet 2 5 Active Active Problems Problem Noted Date Diagnosed Date Acute nontraumatic kidney injury 03/24/2022 Chronic kidney disease stage 2 03/24/2022 Essential hypertension 03/24/2022 Hypercalcemia 03/24/2022 Severe chronic obstructive pulmonary disease Type 2 diabetes mellitus without complication Encounters Date Type Department Care Team Description 02/25/2024 Refill [facility], [facility] [address] [facility] [place] [address] Cathy Martin MA 01/17/2024 Refill [facility], [facility] [address] [facility] [address] [place] [address] Jorge Rabago MD from Last 3 Months [...] st Contact Info) Description 04/01/2024 4:00 PM CLINICAL SUPPORT SPECIALIST Office Visit [facility], [facility] [address] [facility] [address] [place] [address] Jorge Rabago MD [address] [facility] [address] [place] [address] Health Maintenance Due Date Last Done Comments [...] age to complete this topic Insurance MEDICARE [facility] Advance Directives Documents on File Type Date Recorded Patient Balance Wheel Screw Hole Driller Expl anation Advance Care Planning 08/24/2022 5:10 PM Care Teams Director Voice Relationship Specialty Start Date End Date Nicolas Greer MD MPH [address] [address] PCP - General Family Medicine 01/04/22
--- OUTSIDE RECORDS SUMMARY | 2024-03-31 13:13 | XMS_ITS | Encounter Summary ---
Author Organization [facility] Address [address] [place] [address] Phone Care Team Providers Care Manager Home Name Role Phone Ariel Christiansen MD Unavailable [phone] Parmjit Vogel MD Unavailable [phone] Nicolas Greer MD Primary Care Provider [phone] Keny Saldaña APRN, SPIRITUAL ADVISOR Unavailable Cristian Dewitt MD Unavailable Ale Black RN Unavailable Unavailable Ale Spain RN Unavailable Unavailable Jerardo MCCANN MD, Courtney Unavailable [phone] Raghu Green MD Unavailable Warren Osborn MD Unavailable Ale Spain RN Unavailable Unavailable Chetan Do MD Unavailable Reason for Visit * Reason Comments Medication Refill Encounter Details Date Type Department Care Team (Late st Contact Info) Description 06/26/2022 Refill [facility] #2 [place] [address] Nicolas Greer MD #[address] [address] Medication Refill Social History Tobacco Use Types [...] Job Start Date Job End Date Retired [employer] Not on file Not on file Not [...] [facility] 01/09/22 Telemedicine Keny Saldaña APRN, SPIRITUAL ADVISOR [facility] [place] 12/19/21 Office Visit Nicolas Greer MD [facility] 09/08/21 Office Visit Keny Saldaña APRN, MARY [facility] [place] 08/03/21 Telemedicine Nicolas Greer MD [facility] [...] Description 04/24/2024 2:00 PM CDT Office Visit [facility] - Endocrinology - [place] #2 [place] [phone] Chetan Do MD #[address] [phone] 08/14/2024 1:00 PM CDT Office Visit [facility] - Pulmonology & Sleep Medicine - [place] #2 [place] [phone] Raghu Green MD #2 [place] [address] 09/17/2024 1:00 PM CDT Office Visit [facility] Medical [facility] - Family Medicine - [place] #2 [place] [address] Nicolas Greer MD #[address] [address] documented as of this encounter Visit Diagnoses Diagnosis Edema, unspecified type documented in this encounter Additional Health Concerns Assessment Noted Time PHQ-9 Depression Total Score: 0 02/12/19 20 10:45 AM WORKERS COMPENSATION LEGAL SECRETARY documented as of this encounter Care Teams Manager Home Relationship Specialty Start Date End Date Nicolas Greer MD #[address] [address] PCP - General Family Medicine 09/08/21 Ariel Christiansen MD Consulting Physician Cardiovascular Disease - Cardiology 07/19/16 [place] [id number] [address] [place] Pulmonary Disease 06/18/20 Keny Saldaña APRN, SPIRITUAL ADVISOR #[address] [address] Nurse Practitioner Advanced Practice Nurse 09/08/21 Cristian Dewitt MD #[address] [address] Consulting Physician Cardiovascular Disease - Cardiology 10/06/21 02/07/24 Ale Spain, RN [place] Life Support Technician 03/15/22 02/12/23 Ale Spain, RN [place] Nurse Life Support Technician 03/15/22 02/13/23 Yamel Kurtz III, MD #2 [place] [address] Consulting Physician Urology 09/11/22 Raghu Green MD #2 [place] [address] Consulting Physician Pulmonary Disease 01/04/22 Warren Osborn MD #[address] [address] Consulting Physician Colon and Rectal Surgery 05/21/23 Ale Spain, [place] Nurse Life Support Technician 09/05/23 Chetan Do MD #[address] [phone] Consulting Physician Endocrinology 01/23/24 documented as of this encounter
--- OUTSIDE RECORDS SUMMARY | 2024-03-31 13:13 | XMS_ITS ---
Care Plan Created on: March 31, 2024 Tomeka Burrows : 1950 Sex: Female Author Organization [facility] Address [address] [address] Phone Care Team Providers Care Diesel Scoop Operator Name Role Phone Ariel Christiansen MD Unavailable Parmjit Vogel MD Unavailable Nicolas Greer MD Primary Care Provider [phone] Keny Saldaña APRN, VAULT MECHANIC Unavailable Jerardo MCCANN MD, Courtney Unavailable [phone] Raghu Green MD Unavailable Warren Osborn MD [...] Active Patient Goals On track(2024 3:47 PM CEREAL MILLER) Yes Ale Spain, RN Note: Follow Up [...] Symptoms Patient Goals On track(2024 3:51 PM CEREAL MILLER) Yes Ale Spain RN Note: Follow Up [...] risk. Facilitate referral to pulmonary rehabilitation for [id number] training, improved exercise capacity, mood and quality [...]
--- OUTSIDE RECORDS SUMMARY | 2024-03-31 13:13 | XMS_ITS | Encounter Summary ---
Author Organization [facility] Address [address] [facility] [place] [address] Phone Care Team Providers Care Substitute Teacher Name Role Phone Nicolas Greer MD MPH Primary Care Provider [phone] Reason for Visit * Reason Comments Med Refill Encounter Details Date Type Department Care Team (Late st Contact Info) Description 12/16/2023 Refill [facility] [address] [place] [address] Jorge Rabago MD [address] [place] [address] [address] [place], [place] [phone] Social History Tobacco Use Types Packs/Day Years [...] (Late Contact Info) Description 04/01/2024 4:00 PM EMPLOYEE BENEFITS ADMINISTRATOR Office Visit [facility] [address] [place] [address] Jorge Rabago MD [address] [facility] [address] [place], [place] [id number] documented as of this encounter Visit Diagnoses Not on filedocumented in this encounter Care Teams Substitute Teacher Relationship Specialty Start Date End Date Nicolas Greer MD MPH 2 [place] [address] PCP - General Family Medicine 01/04/22 documented as of this encounter
--- OUTSIDE RECORDS SUMMARY | 2024-03-31 13:13 | XMS_ITS | Encounter Summary ---
Author Organization [facility] Address [address] [place] [address] Phone Care Team Providers Care Compressor Assembler Name Role Phone Ariel Christiansen MD Unavailable [phone] Parmjit Vogel MD Unavailable [phone] Nicolas Greer MD Primary Care Provider [phone] Keny Saldaña APRN, CABLE CUTTER AND SWAGER Unavailable Cristian Dewitt MD Unavailable Ale Black RN Unavailable Unavailable Ale Spain RN Unavailable Unavailable Jerardo MCCANN MD, Courtney Unavailable [phone] Raghu Green MD Unavailable Warren Osborn MD Unavailable Ale Spain RN Unavailable Unavailable Chetan Do MD Unavailable Reason for Visit * Reason Comments Medication Refill Encounter Details Date Type Department Care Team (Late st Contact Info) Description 03/22/2022 Refill [facility] [place] #2 [place] [address] Nicolas Greer MD #[address] [address] Medication Refill Social History Tobacco Use Types [...] Job Start Date Job End Date Retired [employer] Not on file Not on file Not on file COVID-19 Exposure Response Date Recorded In the last 10 days, have yo u been in contact with someone who was confirmed or suspected to have Coronavirus/COVID-19? No / Unsure 03/22/2022 2:20 PM IMMIGRATION CASE WORKER documented as of this encounter Miscellaneous Notes * Telephone Encounter - Karoline Martinez RN - 03/22/2022 1:05 PM IMMIGRATION CASE WORKER Medication warning. Per nursing clinical judgement, [...] [facility] 01/09/22 Telemedicine Keny Saldaña APRN, CABLE CUTTER AND SWAGER [facility] 12/19/21 Office Visit Nicolas Greer MD [facility] 09/08/21 Office Visit Keny Saldaña APRN, CABLE CUTTER AND SWAGER [facility] [place] 08/03/21 Telemedicine Nicolas Greer MD [...] no refill protocol information for this order GRATION CASE WORKER documented in this encounter Plan of Treatment Upcoming Encounters Date Type Department Care Team (Late st Contact Info) Description 04/24/2024 2:00 PM CDT Office Visit [facility] - Endocrinology - [place] #2 [place] [address] Chetan Do MD #[address] [address] 08/14/2024 1:00 PM CDT Office Visit [facility] - Pulmonology & Sleep Medicine [facility] #2 [place] [address] Raghu Green MD #2 [place] [address] 09/17/2024 1:00 PM CDT Office Visit [facility] Medical [facility] - Family [facility] #2 [place] [address] Nicolas Greer MD #[address] [address] documented as of this encounter Visit Diagnoses Diagnosis Edema, unspecified type documented in this encounter Additional Health Concerns Assessment Noted Time PHQ-9 Depression Total Score: 0 02/12/19 20 10:45 AM IMMIGRATION CASE WORKER documented as of this encounter Care Teams Compressor Assembler Relationship Specialty Start Date End Date Nicolas Greer MD #[address] [address] PCP - General Family Medicine 09/08/21 Ariel Christiansen MD Consulting Physician Cardiovascular Disease - Cardiology 07/19/16 [place] [id number] [address] Celery Wrapper Pulmonary Disease 06/18/20 Keny Saldaña, SALES HOST, CABLE CUTTER AND SWAGER #[address] [address] Nurse Practitioner Advanced Practice Nurse 09/08/21 Cristian Dewitt MD #[address] [address] Consulting Physician Cardiovascular Disease - Cardiology 10/06/21 02/07/24 Ale Spain, RN [place] Gravity Manager 03/15/22 02/12/23 Ale Spain, RN [place] Nurse Gravity Manager 03/15/22 02/13/23 Yamel Kurtz III, MD #2 [place] [address] Consulting Physician Urology 09/11/22 Raghu Green MD #2 [place] [address] Consulting Physician Pulmonary Disease 01/04/22 Warren Osborn MD #[address] [address] Consulting Physician Colon and Rectal Surgery 05/21/23 Ale Spain, W[place] Nurse Gravity Manager 09/05/23 Chetan Do MD #[address] [phone] Consulting Physician Endocrinology 01/23/24 documented as of this encounter
--- OUTSIDE RECORDS SUMMARY | 2024-03-31 13:14 | XMS_ITS | Encounter Summary ---
Author Organization [facility] Address [address] [place] [address] Phone Care Team Providers Care Industrial Photographer Name Role Phone Ariel Christiansen MD Unavailable [phone] Parmjit Vogel MD Unavailable [phone] Nicolas Greer MD Primary Care Provider [phone] Keny Saldaña APRN, ETHANOL QUALITY LEADER Unavailable Cristian Dewitt MD Unavailable Ale Black RN Unavailable Unavailable Ale Spain RN Unavailable Unavailable Jerardo MCCANN MD, Courtney Unavailable [phone] Raghu Green MD Unavailable Warren Osborn MD Unavailable Ale Spain RN Unavailable Unavailable Chetan Do MD Unavailable Reason for Visit * Reason Comments Medication Refill Encounter Details Date Type Department Care Team (Late st Contact Info) Description 04/25/2022 Refill [facility] [place] [address] Nicolas Greer MD #2 [facility] [address] [place] [address] Medication Refill Social History Tobacco Use Types [...] Job Start Date Job End Date Retired [employer] Not on file Not on file Not on file COVID-19 Exposure Response Date Recorded In the last 10 days, have yo u been in contact with someone who was confirmed or suspected to have Coronavirus/COVID-19? No / Unsure 04/06/2022 12:47 PM HAY RAKE OPERATOR documented as of this encounter Miscellaneous Notes * Telephone Encounter - Nicolle Funk RN - 04/25/2022 1:33 PM CDT Refills on file documented in this encounter Plan of Treatment Upcoming Encounters Date Type Department Care Team (Late st Contact Info) Description 04/24/2024 2:00 PM CDT [facility] Visit [facility] - Endocrinology - [place] #2 [place] [address] Chetan Do MD #2 [facility] [address] [place] [address] 08/14/2024 1:00 PM CDT Office Visit [facility] - Pulmonology & Sleep Medicine - [place] #2 [place] [address] Raghu Green MD #2 [place] [address] 09/17/2024 1:00 PM CDT [facility] Visit [facility]2 [place] [address] Nicolas Greer MD #[address] [address] documented as of this encounter Visit Diagnoses Not on filedocumented in this encounter Additional Health Concerns Assessment Noted Time PHQ-9 Depression Total Score: 0 02/12/19 20 10:45 AM HAY RAKE OPERATOR documented as of this encounter Care Teams Industrial Photographer Relationship Specialty Start Date End Date Nicolas Greer MD #[address] [address] PCP - General Family Medicine 09/08/21 Ariel Christiansen MD Consulting Physician Cardiovascular Disease - Cardiology 07/19/16 [place] [address] [address] [address]raiser Pulmonary Disease 06/18/20 Keny Saldaña, PATIENT ASSESSMENT COORDINATOR, ETHANOL QUALITY LEADER #[address] [address] Nurse Practitioner Advanced Practice Nurse 09/08/21 Cristian Dewitt MD #[address] [address] Consulting Physician Cardiovascular Disease - Cardiology 10/06/21 02/07/24 Ale Spain RN [place] Office Technician 2/8/23 1/8/24 Ale Spain RN [place] Nurse Office Technician 03/15/22 02/13/23 Yamel Kurtz III, MD #2 [place] [address] Consulting Physician Urology 09/11/22 Raghu Green MD #2 [place] [address] Consulting Physician Pulmonary Disease 01/04/22 Warren Osborn MD #[address] [address] Consulting Physician Colon and Rectal Surgery 05/21/23 Ale Spain RN [place] Nurse Office Technician 09/05/23 Chetan Do MD #[address] [address] Consulting Physician Endocrinology 01/23/24 documented as of this encounter
--- OUTSIDE RECORDS SUMMARY | 2024-03-31 13:14 | XMS_ITS | Encounter Summary ---
Author Organization [facility] Address [address] [place] [address] Phone Care Team Providers Care Editor Book Name Role Phone Ariel Christiansen MD Unavailable [phone] Parmjit Vogel MD Unavailable [phone] Nicolas Greer MD Primary Care Provider [phone] Keny Saldaña APRN, CHROME WORKER Unavailable Cristian Dewitt MD Unavailable Unaruslani Ale Richard RN Unavailable Unavailable Ale Spain RN Unavailable Unavailable Jerardo MCCANN MD, Courtney Unavailable [phone] Raghu Green MD Unavailable Warren Osborn MD Unavailable Ale Spain RN Unavailable Unavailable Chetan Do MD Unavailable Encounter Details Date Type Department Care Team (Late st Contact Info) Description 01/02/2022 [facility] 1 [place] [phone] Nicolas Greer MD #[address] [address] Acute and chronic respiratory failure with hypoxia [...] Industry Job Start Date Job End Date [employer] Not on file Not on file Not on file COVID-19 Exposure Response Date Recorded In the last 10 days, have yo u been in contact with someone who was confirmed or suspected to have Coronavirus/COVID-19? No / Unsure 01/05/2022 8:15 AM ANTENNA DESIGN ENGINEER documented as of this encounter Plan of Treatment Upcoming Encounters Date Type Department Care Team (Late st Contact Info) Description 04/24/2024 2:00 PM CDT Office Visit [facility] Group - Endocrinology - [place] #2 [place] [address] Chetan Do MD #[address] [address] 08/14/2024 1:00 PM CDT Office Visit [facility] - Pulmonology & Sleep Medicine [facility] #2 [place] [address] Raghu Green MD #2 [place] [address] 09/17/2024 1:00 PM CDT Office Visit [facility] - Family Medicine [facility] #2 [place] [address] Nicolas Greer MD #[address] [address] documented as of this encounter Procedures Procedure Name Priority Date/Time Associated Diagnosis Comments CBC WITH AUTO DIFFERENTIAL Routine 01/02/2022 9:30 AM ANTENNA DESIGN ENGINEER Acute and chronic respiratory failure with hypoxia (HCC) PHOSPHORUS (PO4) Routine 01/02/2022 9:30 AM ANTENNA DESIGN ENGINEER Acute and chronic respiratory failure with hypoxia (HCC) MAGNESIUM (MG) Routine 01/02/2022 9:30 AM ANTENNA DESIGN ENGINEER Acute and chronic respiratory failure with hypoxia (HCC) COMPLETE BLOOD COUNT (CBC) WITH DIFF Routine 01/02/2022 9:30 AM ANTENNA DESIGN ENGINEER Acute and chronic respiratory failure with hypoxia (HCC) BASIC METABOLIC PANEL W/ CALCIUM TOTAL Routine 01/02/2022 9:30 AM ANTENNA DESIGN ENGINEER Acute and chronic respiratory failure with hypoxia (HCC) documented in this encounter Results * (ABNORMAL) CBC WITH AUTO DIFFERENTIAL (01/02/2022 9:30 AM ANTENNA DESIGN ENGINEER) WBC 12.96(H) 4.00 - 12.00 10(3)/mcL 01/02/2022 11:06 AM ANTENNA DESIGN ENGINEER [facility] RBC 4.13 3.80 - 5.30 10(6)/mcL 01/02/2022 11:06 AM ANTENNA DESIGN ENGINEER [facility] HEMOGLOBIN (HGB) 12.5 12.0 - 15.8 g/dL 01/02/2022 11:06 AM ANTENNA DESIGN ENGINEER [facility] HEMATOCRIT (HCT) 41.1 36.0 - 47.0 % 01/02/2022 11:06 AM ANTENNA DESIGN ENGINEER [facility] MCV 99.5(H) 82.0 - 96.0 fL 01/02/2022 11:06 AM ANTENNA DESIGN ENGINEER [facility] MCH 30.3 26.0 - 34.0 pg 01/02/2022 11:06 AM [facility] MCHC 30.4(L) 31.0 - 36.0 g/dL 01/02/2022 11:06 AM [facility] PLATELET COUNT 353 140 - 440 10(3)/[facility] 01/02/2022 11:06 AM [facility] RDW 13.2 11.8 - 15.5 % 01/02/2022 11:06 AM [facility] MPV 9.9 9.7 - 12.4 fL 01/02/2022 11:06 AM [facility] NEUTROPHILS 74.8(H) 47.0 - 73.0 % 01/02/2022 11:06 AM [facility] LYMPHOCYTES 16.4(L) 18.0 - 42.0 % 01/02/2022 11:06 AM [facility] MONOCYTES 7.8 4.0 - 12.0 % 01/02/2022 11:06 AM [facility] EOSINOPHILS 0.7 0.0 - 5.0 % 01/02/2022 11:06 AM [facility] BASOPHILS 0.3 0.0 - 1.0 % 01/02/2022 11:06 AM [facility] ABSOLUTE NEUTROPHILS 9.69(H) 1.60 - 7.70 10(3)/[facility] 01/02/2022 11:06 AM [facility] ABSOLUTE LYMPHOCYTES 2.13 1.30 - 3.20 10(3)/[facility] 01/02/2022 11:06 AM [facility] ABSOLUTE MONOCYTES 1.01(H) 0.20 - 1.00 10(3)/[facility] 01/02/2022 11:06 AM [facility] ABSOLUTE EOSINOPHIL 0.09 0.00 - 0.40 10(3)/[facility] 01/02/2022 11:06 AM [facility] ABSOLUTE BASOPHILS 0.04 0.00 - 0.10 10(3)/[facility] 01/02/2022 11:06 AM ANTENNA DESIGN ENGINEER [facility] NRBC PER 100 WBC 0 01/03/20 11:06 AM ANTENNA DESIGN ENGINEER [facility] Blood No Phlebotomy Charged / Unknown 01/02/2022 9:30 AM ANTENNA DESIGN ENGINEER 01/02/2022 11:02 AM ANTENNA DESIGN ENGINEER Nicolas Greer MD HEMATOLOGY ORDERABLES Final Result [facility] #1 [place] [address] * (ABNORMAL) MAGNESIUM (MG) (01/02/2022 9:30 AM ANTENNA DESIGN ENGINEER) MAGNESIUM 1.6(L) 1.8 - 2.5 mg/dL 01/02/2022 11:27 AM ANTENNA DESIGN ENGINEER [facility] Blood No Phlebotomy Charged / Unknown 01/02/2022 9:30 AM ANTENNA DESIGN ENGINEER 01/02/2022 11:02 AM ANTENNA DESIGN ENGINEER Nicolas Greer MD CHEMISTRY ORDERABLES Final Result Performing Organization Address City/[facility]/ZIP Co de Phone Number [facility] #1 [place] [address] * PHOSPHORUS (PO4) (01/02/2022 9:30 AM ANTENNA DESIGN ENGINEER) PHOSPHORUS 2.8 2.4 - 4.7 mg/dL 01/02/2022 11:27 AM ANTENNA DESIGN ENGINEER [facility] Blood No Phlebotomy Charged / Unknown 01/02/2022 9:30 AM ANTENNA DESIGN ENGINEER 01/02/2022 11:02 AM ANTENNA DESIGN ENGINEER Nicolas Greer MD CHEMISTRY ORDERABLES Final Result Performing Organization Address City/[facility]/ZIP Co de Phone Number [facility] #1 [place] [address] * (ABNORMAL) BASIC METABOLIC PANEL W/ CALCIUM TOTAL (01/02/2022 9:30 AM [facility]) SODIUM 138 136 - 144 mmol/L 01/02/2022 11:27 AM [facility] POTASSIUM 4.2 3.5 - 5.1 mmol/L 01/02/2022 11:27 AM [facility] CHLORIDE 92(L) 100 - 110 mmol/L 01/02/2022 11:27 AM [facility] CO2, VENOUS 40(H) 22 - 32 mmol/L 01/02/2022 11:27 AM [facility] ANION GAP 10.2 8.0 - 20.0 mmol/L 01/02/2022 11:27 AM [facility] GLUCOSE 129(H) 70 - 99 mg/dL 01/02/2022 11:27 AM [facility] BUN 24(H) 8 - 23 mg/dL 01/02/2022 11:27 AM [facility] CREATININE, BLOOD 1.06 0.60 - 1.10 mg/dL 01/02/2022 11:27 AM [facility] BUN/CREATININE RATIO 23(H) 12 - 20 ratio 01/02/2022 11:27 AM [facility] CALCIUM 12.4(HH) 8.9 - 10.3 mg/dL 01/02/2022 11:27 AM [facility] GFR, ESTIMATED 55(L) >=60 01/02/2022 11:27 AM [facility] Comment: Creatinine Clearance is the preferred criteria for selecting drug dose adjustments in renally impaired patients. The GFR is provided as additional pertinent clinical information. GFR is reported in mL/min/1.73 sq m. Calculation based on the Chronic Kidney Disease Epidemiology Collaboration (CKD- EPI) equation refit without adjustment for race. GFR, EST. >60 >=60 022 11:27 AM [facility] GFR, EST. NONAFRICAN 51(L) >=60 01/02/2022 11:27 AM ANTENNA DESIGN ENGINEER [facility] Blood No Phlebotomy Charged / Unknown 01/02/2022 9:30 AM ANTENNA DESIGN ENGINEER 01/02/2022 11:02 AM ANTENNA DESIGN ENGINEER Nicolas Greer MD CHEMISTRY ORDERABLES Final Result [facility] #1 [place] [address] documented in this encounter Visit Diagnoses Diagnosis Acute and chronic respiratory failure with hypoxia (HCC) Acute and chronic respiratory failure documented in this encounter Additional Health Concerns Assessment Noted Time PHQ-9 Depression Total Score: 0 02/12/19 20 10:45 AM ANTENNA DESIGN ENGINEER documented as of this encounter Care Teams Editor Book Relationship Specialty Start Date End Date Nicolas Greer MD #[address] [address] PCP - General Family Medicine 09/08/21 Ariel Christiansen MD Consulting Physician Cardiovascular Disease - Cardiology 07/19/16 [place] [address] [address] Armament Aircraft Mechanic Pulmonary Disease 06/18/20 Keny Saldaña, POWER PLANT MECHANIC, CHROME WORKER #[address] [address] Nurse Practitioner Advanced Practice Nurse 09/08/21 Cristian Dewitt MD #[address] [address] Consulting Physician Cardiovascular Disease - Cardiology 10/06/21 02/07/24 Ale Spain, WALDO [place] Director Of Outpatient Services 03/15/22 02/12/23 Ale Spain, RN [place] Nurse Director Of Outpatient Services 03/15/22 02/13/23 Yamel Kurtz III, MD #2 [place] [address] Consulting Physician Urology 09/11/22 Raghu Green MD #2 [place] [address] Consulting Physician Pulmonary Disease 01/04/22 Warren Osborn MD #[address] [address] Consulting Physician Colon and Rectal Surgery 05/21/23 Ale Spain RN MA Nurse Director Of Outpatient Services 09/05/23 Chetan Do MD #[address] [phone] Consulting Physician Endocrinology 01/23/24 documented as of this encounter
--- OUTSIDE RECORDS SUMMARY | 2024-03-31 13:14 | XMS_ITS | Encounter Summary ---
Author Organization [facility] Address [address] [place] [address] Phone Care Team Providers Care Auto Bench Mechanic Name Role Phone Ariel Christiansen MD Unavailable [phone] Parmjit Vogel MD Unavailable [phone] Nicolas Greer MD Primary Care Provider [phone] Keny Saldaña APRN, DEV OPS ENGINEER Unavailable Cristian Dewitt MD Unavailable Ale Black RN Unavailable Unavailable Ale Spain RN Unavailable Unavailable Jerardo MCCANN MD, Courtney Unavailable [phone] Raghu Green MD Unavailable Warren Osborn MD Unavailable Ale Spain RN Unavailable Unavailable Chetan Do MD Unavailable Reason for Visit * Reason Comments Medication Refill Encounter Details Date Type Department Care Team (Late st Contact Info) Description 07/27/2022 Refill [facility] [place] #2 [place] [address] Nicolas Greer MD #[address] [address] Medication Refill Social History Tobacco Use Types [...] Job Start Date Job End Date Retired [employer] Not on file Not on file Not [...] [facility] 01/09/22 Telemedicine Keny Saldaña APRN, DEV OPS ENGINEER [facility] [place] 12/19/21 Office Visit Nicolas Greer MD [facility] 09/08/21 Office Visit Keny Saldaña APRN, DEV OPS ENGINEER [facility] 08/03/21 Telemedicine Nicolas Greer MD [facility] [...] [place] 09/08/21 Office Visit Keny Saldaña APRN, DEV OPS ENGINEER [facility] 08/03/21 Telemedicine Nicolas Greer MD [...] 04/24/2024 2:00 PM CDT Office Visit [facility] - Endocrinology - [place] #2 [place] [address] Chetan Do MD #[address] [phone] 08/14/2024 1:00 PM CDT Office Visit [facility] - Pulmonology & Sleep Medicine - [place] #2 [place] [address] Raghu Green MD #2 [place] [address] 09/17/2024 1:00 PM CDT [facility] Visit [facility] - [place] #2 [place] [address] Nicolas Greer MD #[address] [address] documented as of this encounter Visit Diagnoses Not on filedocumented in this encounter Additional Health Concerns Assessment Noted Time PHQ-9 Depression Total Score: 0 02/12/19 10:45 AM BOUNTY TRAPPER documented as of this encounter Care Teams Auto Bench Mechanic Relationship Specialty Start Date End Date Nicolas Greer MD #[address] [address] PCP - General Family Medicine 09/08/21 Ariel Christiansen MD Consulting Physician Cardiovascular Disease - Cardiology 07/19/16 [place] [address] [address] Grant Officer Pulmonary Disease 06/18/20 Keny Saldaña APRN, DEV OPS ENGINEER #[address] [address] Nurse Practitioner Advanced Practice Nurse 09/08/21 Cristian Dewitt MD #[address] [address] Consulting Physician Cardiovascular Disease - Cardiology 10/06/21 02/07/24 Ale Spain, RN [place] Subway Repair Supervisor 03/15/22 02/12/23 Ale Spain, RN [place] Nurse Subway Repair Supervisor 03/15/22 02/13/23 Yamel Kurtz III, MD #2 [place] [address] Consulting Physician Urology 09/11/22 Raghu Green MD #2 [place] [address] Consulting Physician Pulmonary Disease 01/04/22 Warren Osborn MD #[address] [address] Consulting Physician Colon and Rectal Surgery 05/21/23 Ale Spain, RN [place] Nurse Subway Repair Supervisor 09/05/23 Chetan Do MD #[address] [phone] Consulting Physician Endocrinology 01/23/24 documented as of this encounter
--- OUTSIDE RECORDS SUMMARY | 2024-03-31 13:14 | XMS_ITS | Encounter Summary ---
Author Organization [facility] Address [address] [place] [place] [address] Phone Care Team Providers Care Brake [address] Freight Name Role Phone Nicolas Greer MD Primary Care Provider [phone] Ariel Christiansen MD Unavailable [phone] Parmjit Vogel MD Unavailable [phone] Nicolas Greer MD Primary Care Provider [phone] Keny Saldaña APRN, GROCERY PACKER Unavailable Cristian Dewitt MD Unavailable Ale Black RN Unavailable Unavailable Ale Spain RN Unavailable Unavailable Jerardo MCCANN MD, Courtney Unavailable [phone] Raghu Green MD Unavailable Warren Osborn MD Unavailable Ale Spain RN Unavailable Unavailable Chetan Do MD Unavailable Reason for Visit * Reason Comments Medication Refill Encounter Details Date Type Department Care Team (Late st Contact Info) Description 04/01/2021 Refill [facility] #2 [place] [address] Nicolas Greer MD #[address] [address] Medication Refill Social History Tobacco Use Types [...] 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 Not on file Not [...] 90 days and meeting all other requirements KER MACHINE OPERATOR documented in this encounter Plan of Treatment Upcoming Encounters Date Type Department Care Team (Late st Contact Info) Description 04/24/2024 2:00 PM CDT Office Visit [facility] - Endocrinology - [place] #2 [place] [address] Chetan Do MD #[address] [address] 08/14/2024 1:00 PM CDT Office Visit [facility] - Pulmonology & Sleep Medicine - [place] #2 [place] [address] Raghu Green MD #2 [place] [address] 09/17/2024 1:00 PM CDT Office Visit [facility] - Family Medicine - [place] #2 [place] [address] Nicolas Greer MD #2 [facility] [address] [place] [address] documented as of this encounter Visit Diagnoses Diagnosis Pulmonary emphysema, unspecified emphysema type (HCC) documented in this encounter Additional Health Concerns Infection Onset Date Last Indicated Resolved Time COVID - 19 09/02/2021 09/02/2021 09/03/2021 2:05 PM CDT COVID - 19 12/24/2021 12/24/2021 12/26/2021 8:07 AM BREAKER MACHINE OPERATOR Respiratory Rule Out - RPA 12/24/2021 12/24/2021 1 02/24/2021 4:41 PM BREAKER MACHINE OPERATOR Influenza 12/24/2021 12/24/2021 12/31/2021 12:1 6 AM BREAKER MACHINE OPERATOR Assessment Noted Time PHQ-9 Depression Total Score: 0 02/12/19 20 10:45 AM BREAKER MACHINE OPERATOR documented as of this encounter Care Teams [address]ke [address] Freight Relationship Specialty Start Date End Date Nicolas Greer MD #[address] [address] PCP - General Family Medicine 12/22/14 09/07/21 Nicolas Greer MD #[address] [address] PCP - General Family Medicine 09/08/21 Ariel Christiansen MD #[address] [address] Consulting Physician Cardiovascular Disease - Cardiology 07/19/16 [place] [address] [address] Mission Assessment Specialist Pulmonary Disease 06/18/20 Keny Saldaña APRN, GROCERY PACKER #[address] [address] Nurse Practitioner Advanced Practice Nurse 09/08/21 Cristian Dewitt MD #[address] [address] Consulting Physician Cardiovascular Disease - Cardiology 10/06/21 02/07/24 Ale Spain, RN [place] Longitudinal Float Operator 03/15/22 02/12/23 Ale Spain, RN [place] Nurse Longitudinal Float Operator 03/15/22 02/13/23 Yamel Kurtz III, MD #2 [place] [address] Consulting Physician Urology 09/11/22 Raghu Green MD #2 [place] [address] Consulting Physician Pulmonary Disease 01/04/22 Warren Osborn MD #[address] [id number] Consulting Physician Colon and Rectal Surgery 05/21/23 Ale Spain, [place] Nurse Longitudinal Float Operator 09/05/23 Chetan Do MD #[address] [phone] Consulting Physician Endocrinology 01/23/24 documented as of this encounter
--- OUTSIDE RECORDS SUMMARY | 2024-03-31 13:14 | XMS_ITS | Encounter Summary ---
Author Organization [facility] Address [address] [place] [address] Phone Care Team Providers Care Reading Tutor Name Role Phone Ariel Christiansen MD Unavailable [phone] Parmjit Vogel MD Unavailable [phone] Nicolas Greer MD Primary Care Provider [phone] Keny Saldaña APRN, ENVIRONMENTAL HEALTH SAFETY ENGINEER Unavailable Cristian Dewitt MD Unavailable Ale Black RN Unavailable Unavailable Ale Spain RN Unavailable Unavailable Jerardo MCCANN MD, Courtney Unavailable [phone] Raghu Green MD Unavailable Warren Osborn MD Unavailable Ale Spain RN Unavailable Unavailable Chetan Do MD Unavailable Reason for Visit * Reason Comments Medication Refill Encounter Details Date Type Department Care Team (Late st Contact Info) Description 08/01/2022 Refill [facility] #2 [place] [address] Nicolas Greer MD #2 [facility] [address] [place] [address] Medication Refill Social History Tobacco Use Types [...] Job Start Date Job End Date Retired [employer] Not on file Not on file Not [...] Visit [facility] - Endocrinology - [place] #2 [place] [address] Chetan Do MD #2 [facility] [address] [place] [address] 08/14/2024 1:00 PM CDT Office Visit [facility] - Pulmonology & Sleep Medicine - [place] #2 [place] [address] Raghu Green MD #2 [place] [address] 09/17/2024 1:00 PM CDT Office Visit [facility] #2 [place] [address] Nicolas Greer MD #[address] [address] documented as of this encounter Visit Diagnoses Not on filedocumented in this encounter Additional Health Concerns Assessment Noted Time PHQ-9 Depression Total Score: 0 02/12/19 20 10:45 AM GEOSPATIAL APPLICATIONS DEVELOPER documented as of this encounter Care Teams Reading Tutor Relationship Specialty Start Date End Date Nicolas Greer MD #[address] [address] PCP - General Family Medicine 09/08/21 Ariel Christiansen MD Consulting Physician Cardiovascular Disease - Cardiology 07/19/16 [place] [address] [address] Director Mba Pulmonary Disease 06/18/20 Keny Saldaña, COMMUNITY DEVELOPMENT SPECIALIST, ENVIRONMENTAL HEALTH SAFETY ENGINEER #[address] [address] Nurse Practitioner Advanced Practice Nurse 09/08/21 Cristian Dewitt MD #[address] [address] Consulting Physician Cardiovascular Disease - Cardiology 10/06/21 02/07/24 Ale Spain, RN [place] Division Roadmaster 03/15/22 02/12/23 Ale Spain, RN [place] Nurse Division Roadmaster 03/15/22 02/13/23 Yamel Kurtz III, MD #2 [place] [address] Consulting Physician Urology 09/11/22 Raghu Green MD #2 [place] [address] Consulting Physician Pulmonary Disease 01/04/22 Warren Osborn MD #[address] [address] Consulting Physician Colon and Rectal Surgery 05/21/23 Ale Spain, RN [place] Nurse Division Roadmaster 09/05/23 Chetan Do MD #[address] [address] Consulting Physician Endocrinology 01/23/24 documented as of this encounter
--- OUTSIDE RECORDS SUMMARY | 2024-03-31 13:14 | XMS_ITS | Encounter Summary ---
Author Organization [facility] Address [address] [place] [address] Phone Care Team Providers Care Chemical Production Machine Operator Name Role Phone Ariel Christiansen MD Unavailable [phone] Parmjit Vogel MD Unavailable [phone] Nicolas Greer MD Primary Care Provider [phone] Keny Saldaña APRN, MATTRESS WEAVER Unavailable Cristian Dewitt MD Unavailable Unaruslani Ale Richard RN Unavailable Unavailable Ale Spain RN Unavailable Unavailable Jerardo MCCANN MD, Courtney Unavailable [phone] Raghu Green MD Unavailable Warren Osborn MD Unavailable Ale Spain RN Unavailable Unavailable Chetan Do MD Unavailable Encounter Details Date Type Department Care Team (Late st Contact Info) Description 01/13/2022 Lab Requisition [facility] [address] [place] [phone] Nicolas Greer MD #[address] [address] Hypercalcemia Social History Tobacco Use Types Packs/Day [...] Industry Job Start Date Job End Date [employer] Not on file Not on file Not on file COVID-19 Exposure Response Date Recorded In the last 10 days, have yo u been in contact with someone who was confirmed or suspected to have Coronavirus/COVID-19? No / Unsure 01/09/2022 9:59 AM GAMBLING DEALER documented as of this encounter Plan of Treatment Upcoming Encounters Date Type Department Care Team (Late st Contact Info) Description 04/24/2024 2:00 PM CDT Office Visit [facility] - Endocrinology - [place] #2 [place] [address] Chetan Do MD #[address] [phone] 08/14/2024 1:00 PM CDT Office Visit [facility] - Pulmonology & Sleep Medicine [facility] #2 [place] [address] Raghu Green MD #2 [place] [address] 09/17/2024 1:00 PM CDT Office Visit [facility] - Family Medicine - [place] #2 [place] [address] Nicolas Greer MD #[address] [address] documented as of this encounter Procedures Procedure Name Priority Date/Time Associated Diagnosis Comments VITAMIN D, 25 HYDROXY TOTAL Routine 01/13/2022 12:08 PM GAMBLING DEALER Hypercalcemia CBC WITH AUTO DIFFERENTIAL Routine 01/13/2022 12:08 PM GAMBLING DEALER Hypercalcemia PHOSPHORUS (PO4) Routine 01/13/2022 12:0 8 PM GAMBLING DEALER Hypercalcemia PARATHYROID HORMONE PTH INTACT Routine 01/13/2022 12:08 PM GAMBLING DEALER Hypercalcemia MAGNESIUM (MG) Routine 01/13/2022 12:08 PM GAMBLING DEALER Hypercalcemia IONIZED CALCIUM (ICA) Routine 01/13/2022 12:08 PM GAMBLING DEALER Hypercalcemia COMPLETE BLOOD COUNT (CBC) WITH DIFF Routine 01/13/2022 12:08 PM GAMBLING DEALER Hypercalcemia BASIC METABOLIC PANEL W/ CALCIUM TOTAL Routine 01/13/2022 12:08 PM GAMBLING DEALER Hypercalcemia documented in this encounter Results * (ABNORMAL) CBC WITH AUTO DIFFERENTIAL (01/13/2022 12:08 PM GAMBLING DEALER) WBC 10.30 4.00 - 12.00 10(3)/mcL 01/13/2022 12:51 PM GAMBLING DEALER [facility] RBC 3.76(L) 3.80 - 5.30 10(6)/mcL 01/13/2022 12:51 PM GAMBLING DEALER [facility] HEMOGLOBIN (HGB) 11.4(L) 12.0 - 15.8 g/dL 01/13/2022 12:51 PM GAMBLING DEALER [facility] HEMATOCRIT (HCT) 38.0 36.0 - 47.0 % 01/13/2022 12:51 PM [facility] MCV 101.1(H) 82.0 - 96.0 fL 01/13/2022 12:51 PM [facility] MCH 30.3 26.0 - 34.0 pg 01/13/2022 12:51 PM [facility] MCHC 30.0(L) 31.0 - 36.0 g/dL 01/13/2022 12:51 PM [facility] PLATELET COUNT 323 140 - 440 10(3)/[facility] 01/13/2022 12:51 PM [facility] RDW 13.2 11.8 - 15.5 % 01/13/2022 12:51 PM [facility] MPV 10.2 9.7 - 12.4 fL 01/13/2022 12:51 PM [facility] NEUTROPHILS 90.8(H) 47.0 - 73.0 % 01/13/2022 12:51 PM [facility] LYMPHOCYTES 5.6(L) 18.0 - 42.0 % 01/13/2022 12:51 PM [facility] MONOCYTES 3.2(L) 4.0 - 12.0 % 01/13/2022 12:51 PM [facility] EOSINOPHILS 0.2 0.0 - 5.0 % 01/13/2022 12:51 PM [facility] BASOPHILS 0.2 0.0 - 1.0 % 01/13/2022 12:51 PM [facility] ABSOLUTE NEUTROPHILS 9.35(H) 1.60 - 7.70 10(3)/mcL 01/13/2022 12:51 PM [facility] ABSOLUTE LYMPHOCYTES 0.58(L) 1.30 - 3.20 10(3)/mcL 01/13/2022 12:51 PM [facility] ABSOLUTE MONOCYTES 0.33 0.20 - 1.00 10(3)/mcL 01/13/2022 12:51 PM [facility] ABSOLUTE EOSINOPHIL 0.02 0.00 - 0.40 10(3)/mcL 01/13/2022 12:51 PM GAMBLING DEALER [facility] ABSOLUTE BASOPHILS 0.02 0.00 - 0.10 10(3)/mcL 01/13/2022 12:51 PM GAMBLING DEALER [facility] NRBC PER 100 WBC 0 01/14/20 12:51 PM GAMBLING DEALER [facility] Blood No Phlebotomy Charged / Unknown 01/13/2022 12:08 PM GAMBLING DEALER 01/13/2022 12:43 PM GAMBLING DEALER Nicolas Greer MD HEMATOLOGY ORDERABLES Final Result [facility] [place] [address] * (ABNORMAL) PARATHYROID HORMONE PTH INTACT (01/13/2022 12:08 PM GAMBLING DEALER) PTH INTACT 165(H) 15 - 65 pg/mL 01/13/2022 1:29 PM GAMBLING DEALER [facility] Blood No Phlebotomy Charged / Unknown 01/13/2022 12:08 PM GAMBLING DEALER 01/13/2022 12:43 PM GAMBLING DEALER Nicolas Greer MD CHEMISTRY ORDERABLES Final Result [facility]1 [place] [address] * VITAMIN D, 25 HYDROXY TOTAL (01/13/2022 12:08 PM GAMBLING DEALER) VITAMIN D, 25 HYDROX 40 >=30 ng/mL 01/13/2022 1:54 PM GAMBLING DEALER [facility] Blood No Phlebotomy Charged / Unknown 01/13/2022 12:08 PM GAMBLING DEALER 01/13/2022 12:43 PM GAMBLING DEALER Narrative [facility] - 01/13/2022 1:54 PM GAMBLING DEALER Published reference ranges for Vitamin D vary depending on time and place and method of testing, and on patient's age, sex, ethnicity and levels of other measured analytes such as parathormone, calcium and phosphorus. The result should be evaluated in conjunction with clinical findings and suspicions. [facility] [facility] Clinical Practice Guidelines: Status Vitamin D levels (ng/mL) Deficient <=20 At risk of inadequacy 21-29 Sufficient 30-100 Centers of Disease Control and Prevention Guidelines: Status Vitamin D levels (ng/mL) Deficient <13 At risk of inadequacy 13-19 Sufficient 20-50 Possibly harmful >50 References: [employer] [employer] [facility], 2010 Dietary reference intakes for calcium and vitamin D. Sheets [place]: The National Academies Press. Deni M, Wilfredo N, Belkis العرقاي, et al., Evaluation, treatment, and prevention of Vitamin D deficiency: an Endocrinology Clinical Practice Guideline. JCEM 2011 96: 7 5979-8903. Roxana A, Wilton C, Juan D, et al., Vitamin D Status: [place], , [facility] data brief, no. 59, MD Mel: National Center for Health Statistics. 2011. Nicolas Greer MD CHEMISTRY ORDERABLES Final Result [facility] [place] [address] * (ABNORMAL) MAGNESIUM (MG) (01/13/2022 12:08 PM GAMBLING DEALER) MAGNESIUM 1.5(L) 1.8 - 2.5 mg/dL 01/13/2022 1:39 PM GAMBLING DEALER [facility] Blood No Phlebotomy Charged / Unknown 01/13/2022 12:08 PM GAMBLING DEALER 01/13/2022 12:43 PM GAMBLING DEALER Nicolas Greer MD CHEMISTRY ORDERABLES Final Result [facility] [place] [address] * (ABNORMAL) PHOSPHORUS (PO4) (01/13/2022 12:08 PM GAMBLING DEALER) PHOSPHORUS 2.0(L) 2.4 - 4.7 mg/dL 01/13/2022 1:39 PM GAMBLING DEALER [facility] Blood No Phlebotomy Charged / Unknown 01/13/2022 12:08 PM GAMBLING DEALER 01/13/2022 12:43 PM GAMBLING DEALER Nicolas Greer MD CHEMISTRY ORDERABLES Final Result [facility] [place] [address] * (ABNORMAL) BASIC METABOLIC PANEL W/ CALCIUM TOTAL (01/13/2022 12:08 PM GAMBLING DEALER) SODIUM 142 136 - 144 mmol/L 01/13/2022 1:39 PM [facility] POTASSIUM 4.0 3.5 - 5.1 mmol/L 01/13/2022 1:39 PM [facility] CHLORIDE 98(L) 100 - 110 mmol/L 01/13/2022 1:39 PM [facility] CO2, VENOUS 33(H) 22 - 32 mmol/L 01/13/2022 1:39 PM [facility] ANION GAP 15.0 8.0 - 20.0 mmol/L 01/13/2022 1:39 PM GAMBLING DEALER [facility] GLUCOSE 133(H) 70 - 99 mg/dL 01/13/2022 1:39 PM [facility] BUN 15 8 - 23 mg/dL 01/13/2022 1:39 PM [facility] CREATININE, BLOOD 0.89 0.60 - 1.10 mg/dL 01/13/2022 1:39 PM [facility] BUN/CREATININE RATIO 17 12 - 20 ratio 01/13/2022 1:39 PM [facility] CALCIUM 11.5(H) 8.9 - 10.3 mg/dL 01/13/2022 1:39 PM GAMBLING DEALER [facility] GFR, ESTIMATED >60 >=60 01/13/2022 1:39 PM GAMBLING DEALER [facility] Comment: Creatinine Clearance is the preferred criteria for selecting drug dose adjustments in renally impaired patients. The GFR is provided as additional pertinent clinical information. GFR is reported in mL/min/1.73 sq m. Calculation based on the Chronic Kidney Disease Epidemiology Collaboration (CKD- EPI) equation refit without adjustment for race. GFR, EST. >60 >=60 022 1:39 PM GAMBLING DEALER [facility] GFR, EST. NONAFRICAN >60 >=60 01/13/2022 1:39 PM GAMBLING DEALER [facility] Blood No Phlebotomy Charged / Unknown 01/13/2022 12:08 PM GAMBLING DEALER 01/13/2022 12:43 PM GAMBLING DEALER Nicolas Greer MD CHEMISTRY ORDERABLES Final Result Performing Organization Address City/[facility]/ZIP Co de Phone Number [facility] [place] [address] * (ABNORMAL) IONIZED CALCIUM (ICA) (01/13/2022 12:08 PM GAMBLING DEALER) CALCIUM IONIZED 1.39(H) 1.19 - 1.31 mmol/L 01/13/2022 12:55 PM GAMBLING DEALER [facility] Blood No Phlebotomy Charged / Unknown 01/13/2022 12:08 PM GAMBLING DEALER 01/13/2022 12:43 PM GAMBLING DEALER Nicolas Greer MD CHEMISTRY ORDERABLES Final Result [facility] [place] [address] documented in this encounter Visit Diagnoses Diagnosis Hypercalcemia documented in this encounter Additional Health Concerns Assessment Noted Time PHQ-9 Depression Total Score: 0 01/08/20 20 10:45 AM GAMBLING DEALER documented as of this encounter Care Teams Chemical Production Machine Operator Relationship Specialty Start Date End Date Nicolas Greer MD #[address] [address] PCP - General Family Medicine 09/08/21 Airel Christiansen MD Consulting Physician Cardiovascular Disease - Cardiology 07/19/16 [place] [id number] [address] Senior Data Developer Pulmonary Disease 06/18/20 Keny Saldaña APRN, MATTRESS WEAVER #[address] [address] Nurse Practitioner Advanced Practice Nurse 09/08/21 Cristian Dewitt MD #[address] [address] Consulting Physician Cardiovascular Disease - Cardiology 10/06/21 02/07/24 Ale Spain, RN [place] Drum Operator 03/15/22 02/12/23 Ale Spain, RN [place] Nurse Drum Operator 03/15/22 02/13/23 Yamel Kurtz III, MD #2 [place] [address] Consulting Physician Urology 09/11/22 Raghu Green MD #2 [place] [address] Consulting Physician Pulmonary Disease 01/04/22 Warren Osborn MD #[address] [address] Consulting Physician Colon and Rectal Surgery 05/21/23 Ale Spain, RN [place] Nurse Drum Operator 09/05/23 Chetan Do MD #[address] [address] Consulting Physician Endocrinology 01/23/24 documented as of this encounter
--- OUTSIDE RECORDS SUMMARY | 2024-03-31 13:14 | XMS_ITS | Encounter Summary ---
Author Organization [facility] Address [address] [place] [address] Phone Care Team Providers Care Petroleum Production Engineer Name Role Phone Nicolas Greer MD Primary Care Provider [phone] Ariel Christiansen MD Unavailable [phone] Parmjit Vogel MD Unavailable [phone] Nicolas Greer MD Primary Care Provider [phone] Keny Saldaña APRN, WATER MAIN PIPE LAYER Unavailable Cristian Dewitt MD Unavailable UnaAle Montanez RN Unavailable Unavailable Ale Spain RN Unavailable Unavailable Jerardo MCCANN MD, Courtney Unavailable [phone] Raghu Green MD Unavailable Warren Osborn MD Unavailable Ale Spain RN Unavailable Unavailable Chetan Do MD Unavailable Encounter Details Date Type Department Care Team (Late st Contact Info) Description 08/05/2021 [facility] [address] [place] [address] Nicolas Greer MD #[address] [address] Idiopathic gout, unspecified site; Type 2 diabetes [...] Industry Job Start Date Job End Date [employer] Not on file Not on file Not [...] Visit [facility] - [place] #2 [place] [address] Chetan Do MD #[address] [address] 08/14/2024 1:00 PM CDT [facility] - [place] #2 [place] [address] Raghu Green MD #2 [place] [address] 09/17/2024 1:00 PM CDT Office Visit [facility] #[address] [place] [address] Nicolas Greer MD #[address] [address] documented as of this encounter Procedures Procedure [...] LAB PLATELET COUNT 279 140 - 440 10(3)/[facility] 08/05/2021 9:37 AM CDT [facility] LAB ABSOLUTE NEUTROPHILS 4.77 1.60 - 7.70 10(3)/[facility] 08/05/2021 9:37 AM CDT [facility] ABSOLUTE LYMPHOCYTES 1.36 1.30 - 3.20 10(3)/[facility] 08/05/2021 9:37 AM CDT [facility] ABSOLUTE MONOCYTES 0.41 0.20 - 1.00 10(3)/[facility] 08/05/2021 9:37 AM CDT [facility] ABSOLUTE EOSINOPHIL 0.11 0.00 - 0.40 10(3)/[facility] 08/05/2021 9:37 AM CDT [facility] ABSOLUTE BASOPHILS 0.05 0.00 - 0.10 10(3)/[facility] 08/05/2021 9:37 AM CDT [facility] NRBC PER 100 WBC 0 07/01/20 22 9:37 AM CDT [facility] RESULTS ARE CONSISTENT WITH PERIPHERAL SMEAR REVIEW Yes 08/05/2021 9:37 AM CDT [facility] Blood No Phlebotomy Charged / Unknown 08/05/2021 8:18 AM CDT 08/05/2021 9:18 AM CDT Nicolas Greer MD HEMATOLOGY ORDERABLES Final Result Performing Organization Address City/[facility]/ZIP Co de Phone Number [facility] #1 [place] [address] * (ABNORMAL) VITAMIN B12 (08/05/2021 8:18 AM CDT) VITAMIN B12 239(L) 243 - 894 pg/mL 08/05/2021 10:01 AM CDT [facility] Blood No Phlebotomy Charged / Unknown 08/05/2021 8:18 AM CDT 08/05/2021 9:18 AM CDT Nicolas Greer MD CHEMISTRY ORDERABLES Final Result Performing Organization Address City/[facility]/ZIP Co de Phone Number [facility] #1 [place] [address] * VITAMIN D, 25 HYDROXY TOTAL (08/05/2021 [...] in conjunction with clinical findings and suspicions. [employer] of [employer] and Endocrine Clinical Practice Guidelines: Status Vitamin D levels (ng/mL) Deficient <=20 At risk of inadequacy 21-29 Sufficient 30-100 Centers of Disease Control and Prevention Guidelines: Status Vitamin D levels (ng/mL) Deficient <13 At risk of inadequacy 13-19 Sufficient 20-50 Possibly harmful >50 References: [employer], 2010 Dietary reference intakes for calcium and vitamin D. Sheets [place]: The National Academies Press. Deni M, Wilfredo N, Belkis العراقي, et al., Evaluation, treatment, and prevention of Vitamin D deficiency: an Endocrinology Clinical Practice Guideline. JCEM 2011 96: 7 4518-6503. Roxana A, Wilton C, Juan D, et al., Vitamin D Status: [place], 3844-6847, [facility] data brief, no. 59, MD Mel: National Center for Health Statistics. 2011. Nicolas Greer MD CHEMISTRY ORDERABLES Final Result Performing Organization Address City/[facility]/ZIP Co de Phone Number [facility] [address] [place] [address] * URIC ACID (BLOOD ASSAY) (08/05/2021 8:18 AM CDT) URIC ACID 4.1 2.4 - 5.7 mg/dL 08/05/2021 9:51 AM CDT [facility] Blood No Phlebotomy Charged / Unknown 08/05/2021 8:18 AM CDT 08/05/2021 9:18 AM CDT Nicolas Greer MD CHEMISTRY ORDERABLES Final Result Performing Organization Address City/[facility]/ZIP Co de Phone Number [facility] [address] [place] [address] * (ABNORMAL) HEMOGLOBIN A1C W/ ESTIMATED GLUCOSE [...] CHEMISTRY ORDERABLES Final Result Performing Organization Address City/[facility] Co de Phone Number [facility] [address] [place] [address] * THYROID STIMULATING HORMONE (TSH) (08/05/2021 8:18 AM CDT) TSH 3.980 0.270 - 4.200 mIU/L 08/05/2021 9:51 AM CDT [facility] Blood No Phlebotomy Charged / Unknown 08/05/2021 8:18 AM CDT 08/05/2021 9:18 AM CDT Nicolas Greer MD CHEMISTRY ORDERABLES Final Result [facility] [address] [place] [address] * (ABNORMAL) LIPID PANEL (08/05/2021 8:18 AM [...] Nicolas Greer MD CHEMISTRY ORDERABLES Final Result [facility] [address] [place] [address] * (ABNORMAL) CMP (COMPREHENSIVE METABOLIC PANEL) (08/05/2021 8:18 AM CDT) SODIUM 141 136 - 144 mmol/L 08/05/2021 9:51 AM CDT [facility] POTASSIUM 4.5 3.5 - 5.1 mmol/L 08/05/2021 9:51 AM CDT [facility] CHLORIDE 102 100 - 110 mmol/L 08/05/2021 9:51 AM CDT [facility] CO2, VENOUS 34(H) 22 - 32 mmol/L 08/05/2021 9:51 AM CDT [facility] ANION GAP 9.5 8.0 - 20.0 mmol/L 08/05/2021 9:51 AM CDT [facility] GLUCOSE 112(H) 70 - 99 mg/dL 08/05/2021 9:51 AM CDT [facility] BUN 18 8 - 23 mg/dL 08/05/2021 9:51 AM CDT [facility] CREATININE, BLOOD 0.64 0.60 - 1.10 mg/dL 08/05/2021 9:51 AM CDT [facility] BUN/CREATININE RATIO 28(H) 12 - 20 ratio 08/05/2021 9:51 AM CDT [facility] TOTAL PROTEIN 6.8 6.0 - 8.3 g/dL 08/05/2021 9:51 AM CDT [facility] ALBUMIN 4.1 3.5 - 5.2 g/dL 08/05/2021 9:51 AM CDT [facility] Comment: The colormetric methods used for the determination of Albumin may lead to falsely elevated test results in patients suffering from renal failure or insufficiency due to interference with other proteins. A/G RATIO 1.5 1.0 - 2.0 08/05/2021 9:51 AM CDT [facility] CALCIUM 10.7(H) 8.9 - 10.3 mg/dL 08/05/2021 9:51 AM CDT [facility] T BILI 0.4 <=1.2 mg/dL 08/05/2021 9:51 AM CDT [facility] SGOT (AST) 13 <=32 U/L 08/05/2021 9:51 AM CDT [facility] SGPT (ALT) 8 <=41 U/L 08/05/2021 9:51 AM CDT [facility] ALKALINE PHOSPHATASE 86 35 - 105 U/L 08/05/2021 9:51 AM CDT [facility] GFR, EST. NONAFRICAN >60 >=60 08/05/2021 9:51 AM CDT [facility] GFR, EST. >60 >=60 022 9:51 AM T [facility] Comment: Creatinine Clearance is the preferred criteria for selecting drug dose adjustments in renally impaired patients. The GFR is provided as additional pertinent clinical information. GFR is reported in mL/min/1.73 sq m. Blood No Phlebotomy Charged / Unknown 08/05/2021 8:18 AM CDT 08/05/2021 9:18 AM CDT Nicolas Greer MD CHEMISTRY ORDERABLES Final Result [facility] #1 [place] [address] documented in this encounter Visit Diagnoses Diagnosis [...] - 19 12/24/2021 12/24/2021 12/26/2021 8:07 AM VARNISHING UNIT TOOL SETTER Respiratory Rule Out - RPA 12/24/2021 12/24/2021 1 02/24/2021 4:41 PM VARNISHING UNIT TOOL SETTER Influenza 12/24/2021 12/24/2021 12/31/2021 12:1 6 AM VARNISHING UNIT TOOL SETTER Assessment Noted Time PHQ-9 Depression Total Score: 0 02/12/19 10:45 AM VARNISHING UNIT TOOL SETTER documented as of this encounter Care Teams Petroleum Production Engineer Relationship Specialty Start Date End Date Nicolas Greer MD #[address] [address] PCP - General Family Medicine 12/22/14 09/07/21 Nicolas Greer MD #[address] [address] PCP - General Family Medicine 09/08/21 Ariel Christiansen MD #[address] [address] Consulting Physician Cardiovascular Disease - Cardiology 07/19/16 [place] [address] [facility] [address] [place] [address] Oven Technician Pulmonary Disease 06/18/20 Keny Saldaña, CHUTE LOADER, WATER MAIN PIPE LAYER #[address] [address] Nurse Practitioner Advanced Practice Nurse 09/08/21 Cristian Dewitt MD #[address] [address] Consulting Physician Cardiovascular Disease - Cardiology 10/06/21 02/07/24 Ale Spain, RN [place] Assistant Health Educator 03/15/22 02/12/23 Ale Spain, RN [place] Nurse Assistant Health Educator 03/15/22 02/13/23 Yamel Kurtz III, MD #2 [place] [address] Consulting Physician Urology 09/11/22 Raghu Green MD #2 [place] [address] Consulting Physician Pulmonary Disease 01/04/22 Warren Osborn MD #[address] [address] Consulting Physician Colon and Rectal Surgery 05/21/23 Ale Spain, RN [place] Nurse Assistant Health Educator 09/05/23 Chetan Do MD #[address] [phone] Consulting Physician Endocrinology 01/23/24 documented as of this encounter
--- OUTSIDE RECORDS SUMMARY | 2024-03-31 13:14 | XMS_ITS | Encounter Summary ---
Author Organization [facility] Address [address] [place] [address] Phone Care Team Providers Care Hatchery Man Name Role Phone Nicolas Greer MD Primary Care Provider [phone] Ariel Christiansen MD Unavailable [phone] Parmjit Vogel MD Unavailable [phone] Nicolas Greer MD Primary Care Provider [phone] Keny Saldaña APRN, DIRECTOR SANITATION BUREAU Unavailable Cristian Dewitt MD Unavailable Ale Black RN Unavailable Unavailable Ale Spain RN Unavailable Unavailable Jerardo MCCANN MD, Courtney Unavailable [phone] Raghu Green MD Unavailable Warren Osborn MD Unavailable Ale Spain RN Unavailable Unavailable Chetan Do MD Unavailable Reason for Visit * Reason Comments Medication Refill Encounter Details Date Type Department Care Team (Late st Contact Info) Description 02/06/2021 Refill [facility] #2 [place] [address] Nicolas Greer MD #[address] [address] Medication Refill Social History Tobacco Use Types [...] Job Start Date Job End Date Retired [employer] Not on file Not on file Not on file COVID-19 Exposure Response Date Recorded In the last month, have you been in contact with someone who was confirmed or suspected to have Coronavirus / COVID-19? No / Unsure 01/07/2021 12:02 PM APIARIST documented as of this encounter Miscellaneous Notes [...] Betancourt 03/11/20 [facility] visits within past 365 days and meeting all other requirements Future Appointments Date Type Provider Dept 03/22/21 Appointment Nicolas Greer MD [facility] Showing future appointments within next 90 days and meeting all other requirements RIST documented in this encounter Plan of Treatment Upcoming Encounters Date Type Department Care Team (Late st Contact Info) Description 04/24/2024 2:00 PM CDT Office Visit [facility] Medical [facility] - Endocrinology - [place] #2 [facility] [place] [address] Chetan Do MD #[address] [address] 08/14/2024 1:00 PM CDT Office Visit [facility] Medical [facility] - Pulmonology & Sleep Medicine - [place] #2 [facility] [place] [address] Raghu Green MD #2 [facility] [address] 09/17/2024 1:00 PM CDT Office Visit [facility] Medical [facility] - Family Medicine - [place] #2 [facility] [place] [address] Nicolas Greer MD #[address] [place] [address] documented as of this encounter Visit Diagnoses Diagnosis Pulmonary emphysema, unspecified emphysema type (HCC) documented in this encounter Additional Health Concerns Infection Onset Date Last Indicated Resolved Time COVID - 19 09/02/2021 09/02/2021 09/03/2021 2:05 PM CDT COVID - 19 12/24/2021 12/24/2021 12/26/2021 8:07 AM APIARIST Respiratory Rule Out - RPA 12/24/2021 12/24/2021 1 02/24/2021 4:41 PM APIARIST Influenza 12/24/2021 12/24/2021 12/31/2021 12:1 6 AM APIARIST Assessment Noted Time PHQ-9 Depression Total Score: 0 02/12/19 10:45 AM APIARIST documented as of this encounter Care Teams Hatchery Man Relationship Specialty Start Date End Date Nicolas Greer MD #[address] [address] PCP - General Family Medicine 12/22/14 09/07/21 Nicolas Greer MD #[address] [address] PCP - General Family Medicine 09/08/21 Ariel Christiansen MD #[address] [address] Consulting Physician Cardiovascular Disease - Cardiology 07/19/16 [place] [address] [address] Talent Sourcing Specialist Pulmonary Disease 06/18/20 Keny Saldaña, EDGING MACHINE SETTER, DIRECTOR SANITATION BUREAU #[address] [address] Nurse Practitioner Advanced Practice Nurse 09/08/21 Cristian Dewitt MD #[address] [address] Consulting Physician Cardiovascular Disease - Cardiology 10/06/21 02/07/24 Ale Spain, RN [place] Internal Corrosion Specialist 03/15/22 02/12/23 Spain, Ale M, RN [place] Nurse Internal Corrosion Specialist 03/15/22 02/13/23 Yamel Kurtz III, MD #2 [place] [address] Consulting Physician Urology 09/11/22 Raghu Green MD #2 [place] [address] Consulting Physician Pulmonary Disease 01/04/22 Warren Osborn MD #[address] [address] Consulting Physician Colon and Rectal Surgery 05/21/23 Ale Spain RN [place] Nurse Internal Corrosion Specialist 09/05/23 Chetan Do MD #[address] [address] Consulting Physician Endocrinology 01/23/24 documented as of this encounter
--- OUTSIDE RECORDS SUMMARY | 2024-03-31 13:14 | XMS_ITS | Encounter Summary ---
Author Organization [facility] Address [address] [place] [address] Phone Care Team Providers Care Cutter Finisher Name Role Phone Ariel Christiansen MD Unavailable [phone] Parmjit Vogel MD Unavailable [phone] Nicolas Greer MD Primary Care Provider [phone] Keny Saldaña APRN, GUM REMOVER Unavailable Cristian Dewitt MD Unavailable Ale Black RN Unavailable Unavailable Ale Spain RN Unavailable Unavailable Jerardo MCCANN MD, Courtney Unavailable [phone] Raghu Green MD Unavailable Warren Osborn MD Unavailable Ale Spain RN Unavailable Unavailable Chetan Do MD Unavailable Reason for Visit * Reason Comments Medication Refill Encounter Details Date Type Department Care Team (Late st Contact Info) Description 07/27/2022 Refill [facility] #2 [place] [address] Nicolas Greer MD #2 [facility] [address] [place] [address] Medication Refill Social History Tobacco Use Types [...] Job Start Date Job End Date Retired [employer] Not on file Not on file Not [...] Medical Group - Endocrinology - [place] #2 [place] [address] Chetan Do MD #2 [facility] [address] [place] [address] 08/14/2024 1:00 PM CDT Office Visit [facility] Medical [facility] - Pulmonology & Sleep Medicine [facility] #2 [place] [address] Raghu Green MD #2 [place] [address] 09/17/2024 1:00 PM CDT Office Visit [facility] Medical [facility] Family [facility] #2 [place] [address] Nicolas Greer MD #[address] [address] documented as of this encounter Visit Diagnoses Not on filedocumented in this encounter Additional Health Concerns Assessment Noted Time PHQ-9 Depression Total Score: 0 02/12/19 20 10:45 AM TANKROOM TENDER documented as of this encounter Care Teams Cutter Finisher Relationship Specialty Start Date End Date Nicolas Greer MD #[address] [address] PCP - General Family Medicine 09/08/21 Ariel Christiansen MD Consulting Physician Cardiovascular Disease - Cardiology 07/19/16 [place] [address] [address] Belt Worker Pulmonary Disease 06/18/20 Keny Saldaña APRN, GUM REMOVER #[address] [address] Nurse Practitioner Advanced Practice Nurse 09/08/21 Cristian Dewitt MD #[address] [address] Consulting Physician Cardiovascular Disease - Cardiology 10/06/21 02/07/24 Ale Spain, RN [place] Fruit Or Nut Grower 03/15/22 02/12/23 Ale Spain, RN [place] Nurse Fruit Or Nut Grower 03/15/22 02/13/23 Yamel Kurtz III, MD #2 [place] [address] Consulting Physician Urology 09/11/22 Raghu Green MD #2 [place] [address] Consulting Physician Pulmonary Disease 01/04/22 Warren Osborn MD #[address] [address] Consulting Physician Colon and Rectal Surgery 05/21/23 Ale Spain, [place] Nurse Fruit Or Nut Grower 09/05/23 Chetan Do MD #[address] [address] Consulting Physician Endocrinology 01/23/24 documented as of this encounter
--- OUTSIDE RECORDS SUMMARY | 2024-03-31 13:14 | XMS_ITS | Encounter Summary ---
Author Organization [facility] Address [address] [place] [place] [address] Phone Care Team Providers Care Respiratory Therapist Name Role Phone Nicolas Greer MD Primary Care Provider [phone] Ariel Christiansen MD Unavailable [phone] Parmjit Vogel MD Unavailable [phone] Nicolas Greer MD Primary Care Provider [phone] Keny Saldaña APRN, MOTORCYCLE DESIGNER Unavailable Cristian Dewitt MD Unavailable Ale Black RN Unavailable Unavailable Ale Spain RN Unavailable Unavailable Jerardo MCCANN MD, Courtney Unavailable [phone] Raghu Green MD Unavailable Warren Osborn MD Unavailable Ale Spain RN Unavailable Unavailable Chetan Do MD Unavailable Reason for Visit * Reason Comments Medication Refill Encounter Details Date Type Department Care Team (Late st Contact Info) Description 02/22/2021 Refill [facility] #2 [place] [address] Nicolas Greer MD #2 [facility] [address] [place] [address] Medication Refill Social History Tobacco Use Types [...] Job Start Date Job End Date Retired [employer] Not on file Not on file [...] with SSRI for at least 6 months TH CARE TECHNICIAN documented in this encounter Plan of Treatment Upcoming Encounters Date Type Department Care Team (Late st Contact Info) Description 04/24/2024 2:00 PM CDT Office Visit [facility] Group - Endocrinology - [place] #2 [place] [address] Chetan Do MD #[address] [address] 08/14/2024 1:00 PM CDT [facility] #2 [place] [address] Raghu Green MD #2 [place] [address] 09/17/2024 1:00 PM CDT Office Visit [facility] Medical [facility] #2 [place] [address] Nicolas Greer MD #[address] [address] documented as of this encounter Visit Diagnoses Diagnosis Depression with anxiety Dysthymic disorder documented in this encounter Additional Health Concerns Infection Onset Date Last Indicated Resolved Time COVID - 19 09/02/2021 09/02/2021 09/03/2021 2:05 PM CDT COVID - 19 12/24/2021 12/24/2021 12/26/2021 8:07 AM HEALTH CARE TECHNICIAN Respiratory Rule Out - RPA 12/24/2021 12/24/2021 1 02/24/2021 4:41 PM HEALTH CARE TECHNICIAN Influenza 12/24/2021 12/24/2021 12/31/2021 12:1 6 AM HEALTH CARE TECHNICIAN Assessment Noted Time PHQ-9 Depression Total Score: 0 02/12/19 10:45 AM HEALTH CARE TECHNICIAN documented as of this encounter Care Teams Respiratory Therapist Relationship Specialty Start Date End Date Nicolas Greer MD #[address] [address] PCP - General Family Medicine 12/22/14 09/07/21 Nicolas Greer MD #[address] [address] PCP - General Family Medicine 09/08/21 Ariel Christiansen MD #[address] [address] Consulting Physician Cardiovascular Disease - Cardiology 07/19/16 [place] [address] [address] Paraprofessional Education Assistant Pulmonary Disease 06/18/20 Keny Saldaña APRN, MOTORCYCLE DESIGNER #[address] [address] Nurse Practitioner Advanced Practice Nurse 09/08/21 Cristian Dewitt MD #[address] [address] Consulting Physician Cardiovascular Disease - Cardiology 10/06/21 02/07/24 Ale Spain, RN [place] E Learning Developer 03/15/22 02/12/23 Ale Spain RN [place] Nurse E Learning Developer 03/15/22 02/13/23 Yamel Kurtz III, MD #2 [place] [address] Consulting Physician Urology 09/11/22 Raghu Green MD #2 [place] [address] Consulting Physician Pulmonary Disease 01/04/22 Warren Osborn MD #[address] [address] Consulting Physician Colon and Rectal Surgery 05/21/23 Ale Spain, RN [place] Nurse E Learning Developer 09/05/23 Chetan Do MD #[address] [phone] Consulting Physician Endocrinology 01/23/24 documented as of this encounter
--- OUTSIDE RECORDS SUMMARY | 2024-03-31 13:14 | XMS_ITS | Encounter Summary ---
Author Organization [facility] Address [address] [place] [address] [place] [address] Phone Care Team Providers Care Director Home Health Name Role Phone Ariel Christiansen MD Unavailable [phone] Parmjit Vogel MD Unavailable [phone] Nicolas Greer MD Primary Care Provider [phone] Keny Saldaña APRN, ON SITE SOIL EVALUATOR Unavailable Cristian Dewitt MD Unavailable Ale Black RN Unavailable Unavailable Ale Spain RN Unavailable Unavailable Jerardo MCCANN MD, Courtney Unavailable [phone] Raghu Green MD Unavailable Warren Osborn MD Unavailable Ale Spain RN Unavailable Unavailable Chetan Do MD Unavailable Reason for Visit * Reason Comments Medication Refill Encounter Details Date Type Department Care Team (Late st Contact Info) Description 06/05/2022 Refill [facility] #2 [place] [address] Nicolas Greer MD #[address] [address] Medication Refill Social History Tobacco Use Types [...] Industry Job Start Date Job End Date [employer] Not on file Not on file Not [...] [place] 01/09/22 Telemedicine Keny Saldaña APRN, MARY [facility] 12/19/21 Office Visit Nicolas Greer MD [facility] [place] 09/08/21 Office Visit Keny Saldaña APRN, ON SITE SOIL EVALUATOR [facility] 08/03/21 Telemedicine Nicolas Greer MD [facility] [place] [...] [facility] [place] 01/09/22 Telemedicine Keny Saldaña APRN, ON SITE SOIL EVALUATOR [facility] 12/19/21 Office Visit Nicolas Greer MD [facility] [place] 09/08/21 Office Visit Keny Saldaña APRN, ON SITE SOIL EVALUATOR [facility] 08/03/21 Telemedicine Nicolas Greer MD [...] Description 04/24/2024 2:00 PM CDT Office Visit [facility] - Endocrinology - [place] #2 [place] [address] Chetan Do MD #2 [facility] [address] [place] [address] 08/14/2024 1:00 PM CDT Office Visit [facility] Medical [facility] - Pulmonology & Sleep Medicine - [place] #2 [place] [address] Raghu Green MD #2 [place] [address] 09/17/2024 1:00 PM CDT Office Visit [facility] - Family Medicine - [place] #2 [facility] [place] [address] Nicolas Greer MD #2 [facility] [address] [place] [address] documented as of this encounter Visit Diagnoses Diagnosis Edema, unspecified type documented in this encounter Additional Health Concerns Assessment Noted Time PHQ-9 Depression Total Score: 0 02/12/19 20 10:45 AM POLITICAL THEORY PROFESSOR documented as of this encounter Care Teams Director Home Health Relationship Specialty Start Date End Date Nicolas Greer MD #2 [facility] [address] [place] [address] PCP - General Family Medicine 09/08/21 Ariel Christiansen MD Consulting Physician Cardiovascular Disease - Cardiology 07/19/[address] [place] [address] [facility] [address] [place] [address] Economic Research Analyst Pulmonary Disease 06/18/20 Keny Saldaña APRN, ON SITE SOIL EVALUATOR #[address] [address] Nurse Practitioner Advanced Practice Nurse 09/08/21 Cristian Dewitt MD #[address] [address] Consulting Physician Cardiovascular Disease - Cardiology 10/06/21 02/07/24 Ale Spain, RN [place] Intervention Teacher 03/15/22 02/12/23 Ale Spain, RN [place] Nurse Intervention Teacher 03/15/22 02/13/23 Yamel Kurtz III, MD #2 [place] [address] Consulting Physician Urology 09/11/22 Raghu Green MD #2 [place] [address] Consulting Physician Pulmonary Disease 01/04/22 Warren Osborn MD #2 [facility] [address] [place] [address] Consulting Physician Colon and Rectal Surgery 05/21/23 Ale Spain, RN [place] Nurse Intervention Teacher 09/05/23 Chetan Do MD #[address] [address] Consulting Physician Endocrinology 01/23/24 documented as of this encounter
--- OUTSIDE RECORDS SUMMARY | 2024-03-31 13:14 | XMS_ITS | Encounter Summary ---
Author Organization [facility] Address [address] [place] [address] Phone Care Team Providers Care Manager Contracting Name Role Phone Ariel Christiansen MD Unavailable [phone] Parmjit Vogel MD Unavailable [phone] Nicolas Greer MD Primary Care Provider [phone] Keny Saldaña APRN, SLAB INSPECTOR Unavailable Cristian Dewitt MD Unavailable Ale Black RN Unavailable Unavailable Ale Spain RN Unavailable Unavailable Jerardo MCCANN MD, Courtney Unavailable [phone] Raghu Green MD Unavailable Warren Osborn MD Unavailable Ale Spain RN Unavailable Unavailable Chetan Do MD Unavailable Reason for Visit * Reason Comments Medication Refill Encounter Details Date Type Department Care Team (Late st Contact Info) Description 06/06/2022 Refill [facility] #2 [place] [address] Nicolas Greer MD #[address] [address] Medication Refill Social History Tobacco Use Types [...] Industry Job Start Date Job End Date [employer] Not on file Not on file Not [...] [place] 01/09/22 Telemedicine Keny Saldaña APRN, MARY [facility] 12/19/21 Office Visit Nicolas Greer MD [facility] [place] 09/08/21 Office Visit Keny Saldaña APRN, SLAB INSPECTOR [facility] 08/03/21 Telemedicine [facility] 07/21/21 Telemedicine Nicolas Greer MD [facility] Showing recent visits within past 365 days and meeting all other requirements Future Appointments Date Type Provider Dept 06/21/22 Appointment Nicolas Greer MD [facility] Showing future appointments within next 90 days and meeting all other requirements documented in this encounter Plan of Treatment Upcoming Encounters Date Type Department Care Team (Late st Contact Info) Description 04/24/2024 2:00 PM CDT Office Visit [facility] Medical [facility] - Endocrinology - [place] #2 [place] [address] Chetan Do MD #[address] [address] 08/14/2024 1:00 PM CDT Office Visit [facility] Medical [facility] - Pulmonology & Sleep Medicine - [place] #2 [facility] [address] Raghu Green MD #2 [place] [address] 09/17/2024 1:00 PM CDT Office Visit [facility] Medical [facility] - Family Medicine - [place] #2 [place] [address] Nicolas Greer MD #[address] [address] documented as of this encounter Visit Diagnoses Diagnosis Chronic pain of both knees documented in this encounter Additional Health Concerns Assessment Noted Time PHQ-9 Depression Total Score: 0 02/12/19 10:45 AM HEAD TURNING MACHINE OPERATOR documented as of this encounter Care Teams Manager Contracting Relationship Specialty Start Date End Date Nicolas Greer MD #[address] [address] PCP - General Family Medicine 09/08/21 Ariel Christiansen MD Consulting Physician Cardiovascular Disease - Cardiology 07/19/16 [place] [address] [address] Human Resources Manager Pulmonary Disease 06/18/20 Keny Saldaña APRN, SLAB INSPECTOR #[address] [address] Nurse Practitioner Advanced Practice Nurse 09/08/21 Cristian Dewitt MD #[address] [address] Consulting Physician Cardiovascular Disease - Cardiology 10/06/21 02/07/24 Ale Spain, RN [place] Insulation Cupola Operator 03/15/22 02/12/23 Ale Spain, RN [place] Nurse Insulation Cupola Operator 03/15/22 02/13/23 Yamel Kurtz III, MD #2 [place] [address] Consulting Physician Urology 09/11/22 Raghu Green MD #2 [place] [address] Consulting Physician Pulmonary Disease 01/04/22 Warren Osborn MD #[address] [address] Consulting Physician Colon and Rectal Surgery 05/21/23 Ale Spain, RN [place] Nurse Insulation Cupola Operator 09/05/23 Chetan Do MD #[address] [address] Consulting Physician Endocrinology 01/23/24 documented as of this encounter
--- OUTSIDE RECORDS SUMMARY | 2024-03-31 13:14 | XMS_ITS | Encounter Summary ---
Author Organization [facility] Address [address] [place] [address] [place] [place] [address] Phone Care Team Providers Care Fabric Worker Leader Name Role Phone Ariel Christiansen MD Unavailable [phone] Parmjit Vogel MD Unavailable [phone] Nicolas Greer MD Primary Care Provider [phone] Keny Saldaña APRN, PLATE FORMER Unavailable Cristian Dewitt MD Unavailable Ale Black RN Unavailable Unavailable Ale Spain RN Unavailable Unavailable Jerardo MCCANN MD, Courtney Unavailable [phone] Raghu Green MD Unavailable Warren Osborn MD Unavailable Ale Spain RN Unavailable Unavailable Chetan Do MD Unavailable Reason for Visit * Reason Comments Medication Refill Encounter Details Date Type Department Care Team (Late st Contact Info) Description 04/21/2022 Refill [facility] [place] #2 [place] [address] Nicolas Greer MD #[address] [address] Medication Refill Social History Tobacco Use Types [...] Job Start Date Job End Date Retired [employer] Not on file Not on file Not on file COVID-19 Exposure Response Date Recorded In the last 10 days, have yo u been in contact with someone who was confirmed or suspected to have Coronavirus/COVID-19? No / Unsure 04/06/2022 12:47 PM GORE MAKER documented as of this encounter Miscellaneous Notes * Telephone Encounter - Nicolle Funk RN - 05/01/2022 1:42 PM CDT Per note 02/01/22 - dramatic coach (Dr Osborn) wants patient to take both [...] 01/09/22 Telemedicine Keny Saldaña APRN, MARY [facility] [place] 12/19/21 Office Visit Nicolas Greer MD [facility] [place] 09/08/21 Office Visit Keny Saldaña APRN, PLATE FORMER [facility] 08/03/21 Telemedicine Nicolas Greer MD [...] [facility] [place] 01/09/22 Telemedicine Keny Saldaña APRN, PLATE FORMER [facility] [place] 12/19/21 Office Visit Nicolas Greer MD [facility] [place] 09/08/21 Office Visit Keny Saldaña APRN, PLATE FORMER [facility] 08/03/21 Telemedicine Nicolas Greer MD [...] [facility] [place] 01/09/22 Telemedicine Keny Saldaña APRN, PLATE FORMER [facility] [place] 12/19/21 Office Visit Nicolas Greer, MD Pi[facility] 09/08/21 Office Visit Keny Saldaña APRN, PLATE FORMER [facility] 08/03/21 Telemedicine Nicolas Greer MD [facility] [place] 07/21/21 Telemedicine Nicolas Greer MD [facility] [place] [...] Office Visit [facility] - Endocrinology - [place] #2 [place] [address] Chetan Do MD #[address] [address] 08/14/2024 1:00 PM CDT Office Visit [facility] - Pulmonology & Sleep Medicine - [place] #2 [place] [address] Raghu Green MD #2 [place] [address] 09/17/2024 1:00 PM CDT Office Visit [facility] #2 [place] [address] Nicolas Greer MD #[address] [address] documented as of this encounter Visit Diagnoses Diagnosis Edema, unspecified type documented in this encounter Additional Health Concerns Assessment Noted Time PHQ-9 Depression Total Score: 0 02/12/19 20 10:45 AM GORE MAKER documented as of this encounter Care Teams Fabric Worker Leader Relationship Specialty Start Date End Date Nicolas Greer MD #[address] [address] PCP - General Family Medicine 09/08/21 Ariel Christiansen MD Consulting Physician Cardiovascular Disease - Cardiology 07/19/16 [place] [address] [address] Special Officer Pulmonary Disease 06/18/20 Keny Saldaña APRN, PLATE FORMER #[address] [address] Nurse Practitioner Advanced Practice Nurse 09/08/21 Cristian Dewitt MD #[address] [address] Consulting Physician Cardiovascular Disease - Cardiology 10/06/21 02/07/24 Ale Spain, WALDO [place] Fondant Puff Maker 03/15/22 02/12/23 Ale Spain RN [place] Nurse Fondant Puff Maker 03/15/22 02/13/23 Yamel Kurtz III, MD #2 [place] [address] Consulting Physician Urology 09/11/22 Raghu Green MD #2 [place] [address] Consulting Physician Pulmonary Disease 01/04/22 Warren Osborn MD #[address] [address] Consulting Physician Colon and Rectal Surgery 05/21/23 Ale Spain, RN [place] Nurse Fondant Puff Maker 09/05/23 Chetan Do MD #[address] [address] Consulting Physician Endocrinology 01/23/24 documented as of this encounter
--- OUTSIDE RECORDS SUMMARY | 2024-03-31 13:14 | XMS_ITS | Encounter Summary ---
Author Organization [facility] Address [address] [place] [address] Phone Care Team Providers Care Orthotist/Prosthetist Name Role Phone Ariel Christiansen MD Unavailable [phone] Parmjit Vogel MD Unavailable [phone] Nicolas Greer MD Primary Care Provider [phone] Keny Saldaña APRN, TOOL DESIGNER Unavailable Cristian Dewitt MD Unavailable Ale Black RN Unavailable Unavailable Ale Spain RN Unavailable Unavailable Jerardo MCCANN MD, Courtney Unavailable [phone] Raghu Green MD Unavailable Warren Osborn MD Unavailable Ale Spain RN Unavailable Unavailable Chetan Do MD Unavailable Reason for Visit * Reason Comments Medication Refill Encounter Details Date Type Department Care Team (Late st Contact Info) Description 03/27/2022 Refill [facility]2 [place] [address] Nicolas Greer MD #[address] [address] Medication Refill Social History Tobacco Use Types [...] Job Start Date Job End Date Retired [employer] Not on file Not on file Not on file COVID-19 Exposure Response Date Recorded In the last 10 days, have yo u been in contact with someone who was confirmed or suspected to have Coronavirus/COVID-19? No / Unsure 03/22/2022 2:20 PM CIGARETTE LIGHTER REPAIRER documented as of this encounter Miscellaneous Notes * Telephone Encounter - Karoline Martinez RN - 03/27/2022 1:19 PM CIGARETTE LIGHTER REPAIRER Per nursing clinical judgement, provider to review and approve the medication(s) order(s) if appropriate. Requested Prescriptions Pending Prescriptions Disp Refills albuterol 108 (90 Base) MCG/ACT Aerosol Solution [Pharmacy Med Name: ALBUTEROL HFA 90 MCG INHALER (AL] 8.5 g Sig: INHALE TWO PUFFS BY [...] days and meeting all other requirements Breztri AgileNanophere 160-9-4.8 MCG/ACT Aerosol [Pharmacy Med Name: BREZTRI [...] [facility] 01/09/22 Telemedicine Keny Saldaña APRN, TOOL DESIGNER [facility] 12/19/21 Office Visit Nicolas Greer [...] Passed - Active short-acting beta agonist prescription RETTE LIGHTER REPAIRER documented in this encounter Plan of Treatment Upcoming Encounters Date Type Department Care Team (Late st Contact Info) Description 04/24/2024 2:00 PM CDT [facility] Visit [facility] - [facility] - [place] #2 [place] [address] Chetan Do MD #2 [facility] [address] [place] [address] 08/14/2024 1:00 PM CDT Office Visit [facility] Medical Group - Pulmonology & Sleep Medicine - [place] #2 [place] [address] Raghu Green MD #2 [place] [address] 09/17/2024 1:00 PM CDT Office Visit [facility] - Family Medicine - [place] #2 [place] [address] Nicolas Greer MD #2 [facility] [address] [place] [address] documented as of this encounter Visit Diagnoses Not on filedocumented in this encounter Additional Health Concerns Assessment Noted Time PHQ-9 Depression Total Score: 0 02/12/19 10:45 AM CIGARETTE LIGHTER REPAIRER documented as of this encounter Care Teams Orthotist/Prosthetist Relationship Specialty Start Date End Date Nicolas Greer MD #2 [facility] [address] [place] [address] PCP - General Family Medicine 09/08/21 Ariel Christiansen MD Consulting Physician Cardiovascular Disease - Cardiology 07/19/16 [place] [address] [address] Sampler Tester Pulmonary Disease 06/18/20 Keny Saldaña, MOBILE LOUNGE DRIVER OR OPERATOR, TOOL DESIGNER #[address] [address] Nurse Practitioner Advanced Practice Nurse 09/08/21 Cristian Dewitt MD #[address] [address] Consulting Physician Cardiovascular Disease - Cardiology 10/06/21 02/07/24 Ale Spain, RN [place] Content Administrator 03/15/22 02/12/23 Ale Spain, RN [place] Nurse Content Administrator 03/15/22 02/13/23 Yamel Kurtz III, MD #2 [place] [address] Consulting Physician Urology 09/11/22 Raghu Green MD #2 [place] [address] Consulting Physician Pulmonary Disease 01/04/22 Warren Osborn MD #[address] [address] Consulting Physician Colon and Rectal Surgery 05/21/23 Ale Spain, RN [place] Nurse Content Administrator 09/05/23 Chetan Do MD #[address] [address] Consulting Physician Endocrinology 01/23/24 documented as of this encounter
--- OUTSIDE RECORDS SUMMARY | 2024-03-31 13:14 | XMS_ITS | Encounter Summary ---
Author Organization [facility] Address [address] [place] [address] Phone Care Team Providers Care Basket Hand Braider Name Role Phone Ariel Christiansen MD Unavailable [phone] Parmjit Vogel MD Unavailable [phone] Nicolas Greer MD Primary Care Provider [phone] Keny Saldaña APRN, MEDICAL LANGUAGE SPECIALIST Unavailable Cristian Dewitt MD Unavailable Ale Black RN Unavailable Unavailable Ale Spain RN Unavailable Unavailable Jerardo MCCANN MD, Courtney Unavailable [phone] Raghu Green MD Unavailable Warren Osborn MD Unavailable Ale Spain RN Unavailable Unavailable Chetan Do MD Unavailable Reason for Visit * Reason Comments Medication Refill Encounter Details Date Type Department Care Team (Late st Contact Info) Description 08/02/2022 Refill [facility] #2 [place] [address] Nicolas Greer MD #2 [facility] [address] [place] [address] Medication Refill Social History Tobacco Use Types [...] Job Start Date Job End Date Retired [employer] Not on file Not on file Not [...] Refills: 0 Signed by: Nicolas Greer MD [facility] documented in this encounter Plan of Treatment Upcoming Encounters Date Type Department Care Team (Late st Contact Info) Description 04/24/2024 2:00 PM CDT Office Visit [facility]ology - [place] #2 [place] [address] Chetan Do MD #2 [facility] [address] [place] [address] 08/14/2024 1:00 PM CDT Office Visit [facility] - Pulmonology & Sleep Medicine [facility] #2 [place] [address] Raghu Green MD #2 [place] [address] 09/17/2024 1:00 PM CDT Office Visit [facility] #2 [place] [address] Nicolas Greer MD #[address] [address] documented as of this encounter Visit Diagnoses Not on filedocumented in this encounter Additional Health Concerns Assessment Noted Time PHQ-9 Depression Total Score: 0 02/12/19 20 10:45 AM RADIOLOGY RN documented as of this encounter Care Teams Basket Hand Braider Relationship Specialty Start Date End Date Nicolas Greer MD #[address] [address] PCP - General Family Medicine 09/08/21 Ariel Christiansen MD Consulting Physician Cardiovascular Disease - Cardiology 07/19/16 [place] [address] [address] Independent Living Instructor Pulmonary Disease 06/18/20 Keny Saldaña APRN, MEDICAL LANGUAGE SPECIALIST #[address] [address] Nurse Practitioner Advanced Practice Nurse 09/08/21 Cristian Dewitt MD #[address] [address] Consulting Physician Cardiovascular Disease - Cardiology 10/06/21 02/07/24 Ale Spain, RN [place] Fleet Operations Manager 03/15/22 02/12/23 Ale Spain, RN [place] Nurse Fleet Operations Manager 03/15/22 02/13/23 Yamel Kurtz III, MD #2 [place] [address] Consulting Physician Urology 09/11/22 Raghu Green MD #2 [place] [address] Consulting Physician Pulmonary Disease 01/04/22 Warren Osborn MD #[address] [address] Consulting Physician Colon and Rectal Surgery 05/21/23 Ale Spain, WALDO [place] Nurse Fleet Operations Manager 09/05/23 Chetan Do MD #[address] [address] Consulting Physician Endocrinology 01/23/24 documented as of this encounter
--- OUTSIDE RECORDS SUMMARY | 2024-03-31 13:14 | XMS_ITS | Encounter Summary ---
Author Organization [facility] Address [address] [place] [address] [place] [address] Phone Care Team Providers Care Aeroplane Pilot Name Role Phone Ariel Christiansen MD Unavailable [phone] Parmjit Vogel MD Unavailable [phone] Nicolas Greer MD Primary Care Provider [phone] Keny Saldaña APRN, BARMAID Unavailable Cristian Dewitt MD Unavailable Ale Black RN Unavailable Unavailable Ale Spain RN Unavailable Unavailable Jerardo MCCANN MD, Courtney Unavailable [phone] Raghu Green MD Unavailable Warren Osborn MD Unavailable Ale Spain RN Unavailable Unavailable Chetan Do MD Unavailable Reason for Visit * Reason Comments Medication Refill Encounter Details Date Type Department Care Team (Late st Contact Info) Description 07/05/2022 Refill [facility] #2 [place] [address] Nicolas Greer MD #[address] [address] Medication Refill Social History Tobacco Use Types [...] Job Start Date Job End Date Retired [employer] Not on file Not on file Not [...] [place] 01/09/22 Telemedicine Keny Saldaña APRN, MARY [facility] 12/19/21 Office Visit Nicolas Greer MD [facility] [place] 09/08/21 Office Visit Keny Saldaña APRN, BARMAID [facility] 08/03/21 Telemedicine Nicolas Greer MD [facility] [...] Visit [facility] Medical [facility] - Endocrinology - [place] #2 [place] [address] Chetan Do MD #[address] [address] 08/14/2024 1:00 PM CDT Office Visit [facility] Medical [facility] - Pulmonology & Sleep Medicine - [place] #2 [place] [address] Raghu Green MD #2 [facility] [place] [address] 09/17/2024 1:00 PM CDT Office Visit [facility] Medical [facility] - Family Medicine - [place] #2 [place] [address] Nicolas Greer MD #[address] [address] documented as of this encounter Visit Diagnoses Diagnosis Chronic pain of both knees documented in this encounter Additional Health Concerns Assessment Noted Time PHQ-9 Depression Total Score: 0 02/12/19 20 10:45 AM FILLING SEPARATOR documented as of this encounter Care Teams Aeroplane Pilot Relationship Specialty Start Date End Date Nicolas Greer MD #[address] [address] PCP - General Family Medicine 09/08/21 Ariel Christiansen MD Consulting Physician Cardiovascular Disease - Cardiology 07/19/16 [place] [address] [address] Hl7 Developer Pulmonary Disease 06/18/20 Keny Saldaña APRN, BARMAID #[address] [address] Nurse Practitioner Advanced Practice Nurse 09/08/21 Cristian Dewitt MD #[address] [address] Consulting Physician Cardiovascular Disease - Cardiology 10/06/21 02/07/24 Ale Spain, RN [place] Wholesale Buyer 03/15/22 02/12/23 Ale Spain, RN [place] Nurse Wholesale Buyer 03/15/22 02/13/23 Yamel Kurtz III, MD #2 [place] [address] Consulting Physician Urology 09/11/22 Raghu Green MD #2 [place] [address] Consulting Physician Pulmonary Disease 01/04/22 Warren Osborn MD #[address] [address] Consulting Physician Colon and Rectal Surgery 05/21/23 Ale Spain, RN [place] Nurse Wholesale Buyer 09/05/23 Chetan Do MD #[address] [address] Consulting Physician Endocrinology 01/23/24 documented as of this encounter
--- OUTSIDE RECORDS SUMMARY | 2024-03-31 13:14 | XMS_ITS | Encounter Summary ---
Author Organization [facility] Address [address] [place] [address] Phone Care Team Providers Care Medicaid Specialist Name Role Phone Ariel Christiansen MD Unavailable [phone] Parmjit Vogel MD Unavailable [phone] Nicolas Greer MD Primary Care Provider [phone] Keny Saldaña APRN, R&D LAB TECHNICIAN Unavailable Cristian Dewitt MD Unavailable Ale Black RN Unavailable Unavailable Ale Spain RN Unavailable Unavailable Jerardo MCCANN MD, Courtney Unavailable [phone] Raghu Green MD Unavailable Warren Osborn MD Unavailable Ale Spain RN Unavailable Unavailable Chetan Do MD Unavailable Reason for Visit * Reason Comments Medication Refill Encounter Details Date Type Department Care Team (Late st Contact Info) Description 01/05/2023 Refill [facility] #2 [place] [address] Nicolas Greer MD #[address] [address] Medication Refill Social History Tobacco Use Types [...] Job Start Date Job End Date Retired [employer] Not on file Not on file Not [...] [place] 02/13/22 Telemedicine Nicolas Greer MD [facility] [place] 01/11/22 Telemedicine Nicolas Greer MD [facility] [place] 01/09/22 Telemedicine Keny Saldaña APRN, [facility] recent visits within past 365 [...] 09/21/22 Office Visit Nicolas Greer MD [facility] [place] 07/18/22 Telemedicine Nicolas Greer MD [facility] [place] 06/21/22 Office Visit Nicolas Greer MD [facility] [place] 03/22/22 Office Visit Nicolas Greer MD [facility] [place] 03/07/22 Telemedicine Nicolas Greer MD [facility] [place] 02/13/22 Telemedicine Nicolas Greer MD [facility] [place] 01/11/22 Telemedicine Nicolas Greer MD [facility] [place] 01/09/22 Telemedicine Keny Saldaña APRN, R&D LAB TECHNICIAN [facility] visits within past 365 [...] 09/21/22 Office Visit Nicolas Greer MD [facility] [place] 07/18/22 Telemedicine Nicolas Greer MD [facility] [place] 06/21/22 Office Visit Nicolas Greer MD [facility] [place] 03/22/22 Office Visit Nicolas Greer MD [facility] [place] 03/07/22 Telemedicine Nicolas Greer MD [facility] [place] 02/13/22 Telemedicine Nicolas Greer MD [facility] [place] 01/11/22 Telemedicine Nicolas Greer MD [facility] [place] 01/09/22 Telemedicine Keny Saldaña, FREELANCE DIRECTOR, R&D LAB TECHNICIAN [facility] [place] Showing recent visits within past [...] Dept 09/21/22 Office Visit [facility] 06/21/22 Office Visit Nicolas Greer MD [facility] Showing recent visits within past 270 days and meeting all other requirements Future Appointments No visits were found meeting these conditions. Showing future appointments within next 90 days and meeting all other requirements Passed - Blood pressure on record in past 12 months Clinician-entered: BP Readings from Last 3 Encounters: 11/13/22 145/90 09/21/22 132/84 09/11/22 128/86 Patient-entered: No data recorded DECORATOR documented in this encounter Plan of Treatment Upcoming Encounters Date Type Department Care Team (Late st Contact Info) Description 04/24/2024 2:00 PM CDT Office Visit [facility] Medical [facility] - Endocrinology - [place] #2 [place] [address] Chetan Do MD #[address] [address] 08/14/2024 1:00 PM CDT Office Visit [facility] Medical [facility] - Pulmonology & [facility] Medicine - [place] #2 [place] [address] Raghu Green MD #2 [place] [address] 09/17/2024 1:00 PM CDT Office Visit [facility] Medical [facility] - Family Medicine - [place] #2 [facility] [place] [address] Nicolas Greer MD #[address] [place] [address] documented as of this encounter Visit Diagnoses Not on filedocumented in this encounter Additional Health Concerns Assessment Noted Time PHQ-9 Depression Total Score: 0 09/22/19 1:48 PM CDT documented as of this encounter Care Teams Medicaid Specialist Relationship Specialty Start Date End Date Nicolas Greer MD #[address] [address] PCP - General Family Medicine 09/08/21 Ariel Christiansen MD Consulting Physician Cardiovascular Disease - Cardiology 07/19/16 [place] [address] [address] Advertising Columnist Pulmonary Disease 06/18/20 Keny Saldaña APRN, R&D LAB TECHNICIAN #[address] [address] Nurse Practitioner Advanced Practice Nurse 09/08/21 Cristian Dewitt MD #[address] [address] Consulting Physician Cardiovascular Disease - Cardiology 10/06/21 02/07/24 Ale Spain, RN [place] Software Product Manager 03/15/22 02/12/23 Ale Spain, RN [place] Nurse Software Product Manager 03/15/22 02/13/23 Yamel Kurtz III, MD #2 [place] [address] Consulting Physician Urology 09/11/22 Raghu Green MD #2 [place] [address] Consulting Physician Pulmonary Disease 01/04/22 Warren Osborn MD #[address] [address] Consulting Physician Colon and Rectal Surgery 05/21/23 Ale Spain, RN [place] Nurse Software Product Manager 09/05/23 Chetan Do MD #2 [facility] [address] [place] [address] Consulting Physician Endocrinology 01/23/24 documented as of this encounter
--- OUTSIDE RECORDS SUMMARY | 2024-03-31 13:15 | XMS_ITS | Encounter Summary ---
Author Organization [facility] Address [address] [place] [address] Phone Care Team Providers Care Machine Feller Name Role Phone Ariel Christiansen MD Unavailable [phone] Parmjit Vogel MD Unavailable [phone] Nicolas Greer MD Primary Care Provider [phone] Keny Saldaña APRN, FINISHER POLISHER Unavailable Cristian Dewitt MD Unavailable Unaruslani Ale Richard RN Unavailable Unavailable Ale Spain RN Unavailable Unavailable Jerardo MCCANN MD, Courtney Unavailable [phone] Raghu Green MD Unavailable Warren Osborn MD Unavailable Ale Spain RN Unavailable Unavailable Chetan Do MD Unavailable Encounter Details Date Type Department Care Team (Late st Contact Info) Description 01/19/2022 [facility] [address] [place] [id number] Nicolas Greer MD #[address] [address] Hypercalcemia Social History Tobacco Use Types Packs/Day [...] Industry Job Start Date Job End Date [employer] Not on file Not on file Not on file COVID-19 Exposure Response Date Recorded In the last 10 days, have yo u been in contact with someone who was confirmed or suspected to have Coronavirus/COVID-19? No / Unsure 01/17/2022 4:43 PM DRUG COUNSELOR documented as of this encounter Plan of Treatment Upcoming Encounters Date Type Department Care Team (Late st Contact Info) Description 04/24/2024 2:00 PM CDT Office Visit [facility] - Endocrinology - [place] #2 [place] [address] Chetan Do MD #[address] [phone] 08/14/2024 1:00 PM CDT Office Visit [facility] - Pulmonology & Sleep Medicine [facility] #2 [place] [address] Raghu Green MD #2 [place] [address] 09/17/2024 1:00 PM CDT Office Visit [facility] - [place] #2 [place] [address] Nicolas Greer MD #[address] [address] documented as of this encounter Procedures Procedure Name Priority Date/Time Associated Diagnosis Comments BASIC METABOLIC PANEL W/ CALCIUM TOTAL Routine 01/19/2022 9:22 AM DRUG COUNSELOR Hypercalcemia documented in this encounter Results * (ABNORMAL) BASIC METABOLIC PANEL W/ CALCIUM TOTAL (01/19/2022 9:22 AM DRUG COUNSELOR) SODIUM 139 136 - 144 mmol/L 01/19/2022 10:53 AM [facility] POTASSIUM 4.1 3.5 - 5.1 mmol/L 01/19/2022 10:53 AM [facility] CHLORIDE 95(L) 100 - 110 mmol/L 01/19/2022 10:53 AM [facility] CO2, VENOUS 38(H) 22 - 32 mmol/L 01/19/2022 10:53 AM [facility] ANION GAP 10.1 8.0 - 20.0 mmol/L 01/19/2022 10:53 AM [facility] GLUCOSE 112(H) 70 - 99 mg/dL 01/19/2022 10:53 AM [facility] BUN 17 8 - 23 mg/dL 01/19/2022 10:53 AM [facility] CREATININE, BLOOD 0.84 0.60 - 1.10 mg/dL 01/19/2022 10:53 AM [facility] BUN/CREATININE RATIO 20 12 - 20 ratio 01/19/2022 10:53 AM [facility] CALCIUM 10.7(H) 8.9 - 10.3 mg/dL 01/19/2022 10:53 AM [facility] GFR, ESTIMATED >60 >=60 01/19/2022 10:53 AM [facility] Comment: Creatinine Clearance is the preferred criteria for selecting drug dose adjustments in renally impaired patients. The GFR is provided as additional pertinent clinical information. GFR is reported in mL/min/1.73 sq m. Calculation based on the Chronic Kidney Disease Epidemiology Collaboration (CKD- EPI) equation refit without adjustment for race. GFR, EST. >60 >=60 022 10:53 AM DRUG COUNSELOR [facility] GFR, EST. NONAFRICAN >60 >=60 01/19/2022 10:53 AM DRUG COUNSELOR [facility] Blood No Phlebotomy Charged / Unknown 01/19/2022 9:22 AM DRUG COUNSELOR 01/19/2022 10:34 AM DRUG COUNSELOR Nicolas Greer MD CHEMISTRY ORDERABLES Final Result [facility] #1 [place] [address] documented in this encounter Visit Diagnoses Diagnosis Hypercalcemia documented in this encounter Additional Health Concerns Assessment Noted Time PHQ-9 Depression Total Score: 0 02/12/19 20 10:45 AM DRUG COUNSELOR documented as of this encounter Care Teams Machine Feller Relationship Specialty Start Date End Date Nicolas Greer MD #[address] [address] PCP - General Family Medicine 09/08/21 Ariel Christiansen MD Consulting Physician Cardiovascular Disease - Cardiology 07/19/16 [place] [address] [address] Barrel Straightener Pulmonary Disease 06/18/20 Keny Saldaña, MEDICAL SONOGRAPHER, FINISHER POLISHER #[address] [address] Nurse Practitioner Advanced Practice Nurse 09/08/21 Cristian Dewitt MD #[address] [address] Consulting Physician Cardiovascular Disease - Cardiology 10/06/21 02/07/24 Ale Spain, RN [place] Life Assurance Representative 03/15/22 02/12/23 Ale Spain, RN [place] Nurse Life Assurance Representative 03/15/22 02/13/23 Yamel Kurtz III, MD #2 [place] [address] Consulting Physician Urology 09/11/22 Raghu Green MD #2 [place] [address] Consulting Physician Pulmonary Disease 01/04/22 Warren Osborn MD #[address] [address] Consulting Physician Colon and Rectal Surgery 05/21/23 Ale Spain, RN [place] Nurse Life Assurance Representative 09/05/23 Chetan Do MD #[address] [phone] Consulting Physician Endocrinology 01/23/24 documented as of this encounter
--- OUTSIDE RECORDS SUMMARY | 2024-03-31 13:15 | XMS_ITS | Encounter Summary ---
Author Organization [facility] Address [address] [place] [address] Phone Care Team Providers Care Lining Inserter Name Role Phone Ariel Christiansen MD Unavailable [phone] Parmjit Vogel MD Unavailable [phone] Nicolas Greer MD Primary Care Provider [phone] Keny Saldaña APRN, PREPARATION OPERATOR Unavailable Cristian Dewitt MD Unavailable Ale Black RN Unavailable Unavailable Ale Spain RN Unavailable Unavailable Jerardo MCCANN MD, Courtney Unavailable [phone] Raghu Green MD Unavailable Warren Osborn MD Unavailable Ale Spain RN Unavailable Unavailable Chetan Do MD Unavailable Reason for Visit * Reason Comments Medication Refill Encounter Details Date Type Department Care Team (Late st Contact Info) Description 09/20/2022 Refill [facility] #2 [place] [address] Nicolas Greer MD #[address] [address] Medication Refill Social History Tobacco Use Types [...] Job Start Date Job End Date Retired [employer] Not on file Not on file Not [...] Med Name: ALBUTEROL HFA 90 MCG INHALER (IA] 8.5 g 1 Sig: INHALE TWO PUFFS [...] [facility] [place] #[address] [place] [address] Chetan Do MD #[address] [address] 08/14/2024 1:00 PM CDT [facility] [place] #2 [place] [address] Raghu Green MD #2 [place] [address] 09/17/2024 1:00 PM CDT [facility] [place] #2 [place] [address] Nicolas Greer MD #[address] [address] documented as of this encounter Visit Diagnoses Not on filedocumented in this encounter Additional Health Concerns Assessment Noted Time PHQ-9 Depression Total Score: 0 02/12/19 20 10:45 AM FIXED WING AIRCRAFT CREW CHIEF documented as of this encounter Care Teams Lining Inserter Relationship Specialty Start Date End Date Nicolas Greer MD #[address] [address] PCP - General Family Medicine 09/08/21 Ariel Christiansen MD Consulting Physician Cardiovascular Disease - Cardiology 07/19/16 [place] [address] [address] Mortgage Loan Originator Pulmonary Disease 06/18/20 Keny Saldaña APRN, PREPARATION OPERATOR #[address] [address] Nurse Practitioner Advanced Practice Nurse 09/08/21 Cristian Dewitt MD #[address] [address] Consulting Physician Cardiovascular Disease - Cardiology 10/06/21 02/07/24 Ale Spain, RN [place] Load Blocker 03/15/22 02/12/23 Ale Spain, RN [place] Nurse Load Blocker 03/15/22 02/13/23 Yamel Kurtz III, MD #2 [place] [address] Consulting Physician Urology 09/11/22 Raghu Green MD #2 [place] [address] Consulting Physician Pulmonary Disease 01/04/22 Warren Osborn MD #[address] [address] Consulting Physician Colon and Rectal Surgery 05/21/23 Ale Spain, RN [place] Nurse Load Blocker 09/05/23 Chetan Do MD #[address] [address] Consulting Physician Endocrinology 01/23/24 documented as of this encounter
--- OUTSIDE RECORDS SUMMARY | 2024-03-31 13:15 | XMS_ITS | Encounter Summary ---
Author Organization [facility] Address [address] [place] [address] Phone Care Team Providers Care Sales Recruiter Name Role Phone Nicolas Greer MD Primary Care Provider [phone] Ariel Christiansen MD Unavailable [phone] Parmjit Vogel MD Unavailable [phone] Nicolas Greer MD Primary Care Provider [phone] Keny Saldaña APRN, [facility] Unavailable Cristian Dewitt MD Unavailable Ale Black RN Unavailable Unavailable Ale Spain RN Unavailable Unavailable Jerardo MCCANN MD, Courtney Unavailable [phone] Raghu Green MD Unavailable Warren Osborn MD Unavailable Ale Spain RN Unavailable Unavailable Chetan Do MD Unavailable Reason for Visit * Reason Comments Medication Refill Encounter Details Date Type Department Care Team (Late st Contact Info) Description 04/30/2019 [facility] [address] [place], [place] [phone] Nicolas Greer MD #[address] [address] Medication Refill Social History Tobacco Use Types [...] Job Start Date Job End Date Retired [employer] Not on file Not on file Not [...] [facility] Keny Saldaña, EMPLOYEE RELATIONS MANAGER, [facility] Upcoming Appointments allopurinol (ZYLOPRIM) 100 MG Tablet [Pharmacy Med Name: Allopurinol 100 MG Oral Tablet] 180 Tab 2 Sig: Take 2 tablets by mouth once daily Endocrinology: Gout Agents Passed - 04/30/2019 2:45 PM Passed - Valid encounter within last 12 months Past Office Visits Recent Outpatient Visits 2 months ago Hypothyroidism, unspecified type [facility] Nicolas Greer MD 5 months ago Non-insulin dependent type 2 diabetes mellitus (HCC) [facility] Nicolas Greer MD 9 months ago Chronic cough [facility] Nicolas Greer MD 1 year ago Cough [facility] Nicolas Greer MD 1 year ago Bronchitis [facility] Keny Saldaña EMPLOYEE RELATIONS MANAGER, [facility] Upcoming Appointments documented in this encounter Plan of Treatment Upcoming Encounters Date Type Department Care Team (Late st Contact Info) Description 04/24/2024 2:00 PM CDT Office Visit [facility] Medical [facility] - Endocrinology [facility] #2 [place] [address] Chetan Do MD #[address] [address] 08/14/2024 1:00 PM CDT Office Visit [facility] Group - Pulmonology & Sleep Medicine [facility] #2 [place] [address] Raghu Green MD #2 [place] [address] 09/17/2024 1:00 PM CDT Office Visit [facility] - Family Medicine [facility] #2 [place] [address] Nicolas Greer MD #[address] [address] documented as of this encounter Visit Diagnoses Not on filedocumented in this encounter Additional Health Concerns Infection Onset Date Last Indicated Resolved Time COVID - 19 10/14/2019 10/14/2019 10/17/2019 10:5 9 AM CDT COVID - 19 03/11/2020 03/11/2020 03/31/2020 12:1 8 AM BUTTERMAKER COVID - 19 09/02/2021 09/02/2021 09/03/2021 2:05 PM CDT COVID - 19 12/24/2021 12/24/2021 12/26/2021 8:07 AM BUTTERMAKER Respiratory Rule Out - RPA 12/24/2021 12/24/2021 1 02/24/2021 4:41 PM BUTTERMAKER Influenza 12/24/2021 12/24/2021 12/31/2021 12:1 6 AM BUTTERMAKER Assessment Noted Time PHQ-9 Depression Total Score: 0 02/12/19 10:45 AM BUTTERMAKER documented as of this encounter Care Teams Sales Recruiter Relationship Specialty Start Date End Date Nicolas Greer MD #[address] [address] PCP - General Family Medicine 12/22/14 09/07/21 Nicolas Greer MD #[address] [address] PCP - General Family Medicine 09/08/21 Ariel Christiansen MD #[address] [address] Consulting Physician Cardiovascular Disease - Cardiology 07/19/16 [place] [address] [address] Spike Machine Heater Pulmonary Disease 06/18/20 Keny Saldaña APRN, [facility] #[address] [address] Nurse Practitioner Advanced Practice Nurse 09/08/21 Cristian Dewitt MD #[address] [address] Consulting Physician Cardiovascular Disease - Cardiology 10/06/21 02/07/24 Ale Spain, RN [place] Floating Labor Gang Supervisor 03/15/22 02/12/23 Ale Spain, RN [place] Nurse Floating Labor Gang Supervisor 03/15/22 02/13/23 Yamel Kurtz III, MD #2 [place] [address] Consulting Physician Urology 09/11/22 Raghu Green MD #2 [place] [address] Consulting Physician Pulmonary Disease 01/04/22 Warren Osborn MD #[address] [address] Consulting Physician Colon and Rectal Surgery 05/21/23 Ale Spain, RN [place] Nurse Floating Labor Gang Supervisor 09/05/23 Chetan Do MD #[address] [phone] Consulting Physician Endocrinology 01/23/24 documented as of this encounter
--- OUTSIDE RECORDS SUMMARY | 2024-03-31 13:15 | XMS_ITS | Encounter Summary ---
Author Organization [facility] Address [address] [place] [address] Phone Care Team Providers Care Clinical Educator Name Role Phone Nicolas Greer MD Primary Care Provider [phone] Ariel Christiansen MD Unavailable [phone] Parmjit Vogel MD Unavailable [phone] Nicolas Greer MD Primary Care Provider [phone] Keny Saldaña APRN, SCUBA DIVING TEACHER Unavailable Cristian Dewitt MD Unavailable Ale Black RN Unavailable Unavailable Ale Spain RN Unavailable Unavailable Jeradro MCCANN MD, Courtney Unavailable [phone] Raghu Green MD Unavailable Warren Osborn MD Unavailable Ale Spain RN Unavailable Unavailable Chetan Do MD Unavailable Reason for Visit * Reason Comments Medication Refill Encounter Details Date Type Department Care Team (Late st Contact Info) Description 05/13/2019 [facility] [address] [place], [place] [phone] Nicolas Greer MD #[address] [address] Medication Refill Social History Tobacco Use Types [...] Job Start Date Job End Date Retired [employer] Not on file Not on file Not on file documented as of this encounter Miscellaneous Notes * Telephone Encounter - Jocleyn Cavazos RN - 05/13/2019 11:18 AM CDT [...] [facility] Keny Saldaña, MULTIPLE DRUM SANDER, SCUBA DIVING TEACHER Upcoming Appointments Glucose Blood (ONE TOUCH ULTRA [...] months ago Chronic cough [facility] Nicolas Greer MD 1 year ago Cough [facility] Gre[facility] MD 1 year ago Bronchitis [facility] Keny Saldaña APN, SCUBA DIVING TEACHER Upcoming Appointments Powered by PEVESA - 05/13/2019 10:48 AM The requested medication is not on the active medication list. documented in this encounter Plan of Treatment Upcoming Encounters Date Type Department Care Team (Late st Contact Info) Description 04/24/2024 2:00 PM CDT Office [facility] - Endocrinology [facility] #2 [place] [address] Chetan Do MD #[address] [address] 08/14/2024 1:00 PM CDT Office Visit [facility] Group - Pulmonology & Sleep Medicine [facility] #2 [place] [address] Raghu Green MD #2 [place] [address] 09/17/2024 1:00 PM CDT Office Visit [facility] Medical [facility] Family Medicine [facility] #2 [place] [address] Nicolas Greer MD #[address] [address] documented as of this encounter Visit Diagnoses Diagnosis Controlled type 2 diabetes mellitus without complication (HCC) documented in this encounter Additional Health Concerns Infection Onset Date Last Indicated Resolved Time COVID - 19 10/14/2019 10/14/2019 10/17/2019 10:5 9 AM CDT COVID - 19 03/11/2020 03/11/2020 03/31/2020 12:1 8 AM LOADING SHOVEL OILER COVID - 19 09/02/2021 09/02/2021 09/03/2021 2:05 PM CDT COVID - 19 12/24/2021 12/24/2021 12/26/2021 8:07 AM LOADING SHOVEL OILER Respiratory Rule Out - RPA 12/24/2021 12/24/2021 1 02/24/2021 4:41 PM LOADING SHOVEL OILER Influenza 12/24/2021 12/24/2021 12/31/2021 12:1 6 AM LOADING SHOVEL OILER Assessment Noted Time PHQ-9 Depression Total Score: 0 02/12/19 10:45 AM LOADING SHOVEL OILER documented as of this encounter Care Teams Clinical Educator Relationship Specialty Start Date End Date Nicolas Greer MD #[address] [address] PCP - General Family Medicine 12/22/14 09/07/21 Nicolas Greer MD #[address] [address] PCP - General Family Medicine 09/08/21 Ariel Christiansen MD #[address] [address] Consulting Physician Cardiovascular Disease - Cardiology 07/19/16 [place] [address] [address] Financial Services Manager Pulmonary Disease 06/18/20 Keny Saldaña APRN, SCUBA DIVING TEACHER #[address] [address] Nurse Practitioner Advanced Practice Nurse 09/08/21 Cristian Dewitt MD #[address] [address] Consulting Physician Cardiovascular Disease - Cardiology 10/06/21 02/07/24 Ale Spain, RN [place] Recreation Program Specialist 03/15/22 02/12/23 Ale Spain, RN [place] Nurse Recreation Program Specialist 03/15/22 02/13/23 Yamel Kurtz III, MD #2 [place] [address] Consulting Physician Urology 09/11/22 Raghu Green MD #2 [place] [address] Consulting Physician Pulmonary Disease 01/04/22 Warren Osborn MD #[address] [address] Consulting Physician Colon and Rectal Surgery 05/21/23 Ale Spain, RN [place] Nurse Recreation Program Specialist 09/05/23 Chetan Do MD #[address] [phone] Consulting Physician Endocrinology 01/23/24 documented as of this encounter
--- OUTSIDE RECORDS SUMMARY | 2024-03-31 13:15 | XMS_ITS | Encounter Summary ---
Author Organization [facility] Address [address] [place] [address] Phone Care Team Providers Care Take Off Man Name Role Phone Ariel Christiansen MD Unavailable [phone] Parmjit Vogel MD Unavailable [phone] Nicolas Greer MD Primary Care Provider [phone] Keny Saldaña APRN, HOST Unavailable Cristian Dewitt MD Unavailable Ale Black RN Unavailable Unavailable Ale Spain RN Unavailable Unavailable Jerardo MCCANN MD, Courtney Unavailable [phone] Raghu Green MD Unavailable Warren Osborn MD Unavailable Ale Spain RN Unavailable Unavailable Chetan Do MD Unavailable Reason for Visit * Reason Comments Medication Refill Encounter Details Date Type Department Care Team (Late st Contact Info) Description 12/11/2022 [facility]ill [facility] [place] [address] Nicolas Greer MD #[address] [address] Medication Refill Social History Tobacco Use Types [...] Job Start Date Job End Date Retired [employer] Not on file Not on file Not [...] 09/21/22 Office Visit Nicolas Greer MD [facility] 07/18/22 Telemedicine Nicolas Greer MD [facility] 06/21/22 Office Visit Nicolas Greer MD [facility] 03/22/22 Office Visit Nicolas Greer MD [facility] 03/07/22 Telemedicine Nicolas Greer MD [facility] 02/13/22 Telemedicine Nicolas Greer MD [facility] 01/11/22 Telemedicine Nicolas Greer MD [facility] 01/09/22 Telemedicine Keny Saldaña APRN, MARY [facility] 12/19/21 Office Visit Nicolas Greer MD [facility] [...] no refill protocol information for this order [place] POS SPECIALIST documented in this encounter Plan of Treatment Upcoming Encounters Date Type Department Care Team (Late st Contact Info) Description 04/24/2024 2:00 PM CDT Office Visit [facility] Medical [facility] Endocrinology [facility] #2 [place] [address] Chetan Do MD #[address] [address] 08/14/2024 1:00 PM CDT Office Visit [facility] - Pulmonology & Sleep Medicine [facility] #2 [place] [phone] Raghu Green MD #2 [place] [address] 09/17/2024 1:00 PM CDT Office Visit [facility] Family Medicine [facility] #2 [place] [address] Nicolas Greer MD #[address] [address] documented as of this encounter Visit Diagnoses Diagnosis Edema, unspecified type documented in this encounter Additional Health Concerns Assessment Noted Time PHQ-9 Depression Total Score: 0 09/22/19 23 1:48 PM CDT documented as of this encounter Care Teams Take Off Man Relationship Specialty Start Date End Date Nicolas Greer MD #[address] [address] PCP - General Family Medicine 09/08/21 Ariel Christiansen MD Consulting Physician Cardiovascular Disease - Cardiology 07/19/16 [place] [address] [address] Web Services Manager Pulmonary Disease 06/18/20 Keny Saldaña APRN, HOST #[address] [address] Nurse Practitioner Advanced Practice Nurse 09/08/21 Cristian Dewitt MD #[address] [address] Consulting Physician Cardiovascular Disease - Cardiology 10/06/21 02/07/24 Ale Spain, RN [place] Application Packaging Specialist 03/15/22 02/12/23 Ale Spain, RN [place] Nurse Application Packaging Specialist 03/15/22 02/13/23 Yamel Kurtz III, MD #2 [place] [address] Consulting Physician Urology 09/11/22 Raguh Green MD #2 [place] [address] Consulting Physician Pulmonary Disease 01/04/22 Warren Osborn MD #[address] [address] Consulting Physician Colon and Rectal Surgery 05/21/23 Ale Spain, RN [place] Nurse Application Packaging Specialist 09/05/23 Chetan Do MD #[address] [phone] Consulting Physician Endocrinology 01/23/24 documented as of this encounter
--- OUTSIDE RECORDS SUMMARY | 2024-03-31 13:15 | XMS_ITS | Encounter Summary ---
Author Organization [facility] [employer] [facility] Address [address] [place] [address] Phone Care Team Providers Care Customer Solutions Supervisor Name Role Phone Nicolas Greer MD MPH Primary Care Provider [phone] Reason for Visit * Reason Comments Med Refill Encounter Details Date Type Department Care Team (Late st Contact Info) Description 12/18/2022 Refill [facility] [address] [place] [address] Arnav Lunsford MD [address] [place] [address] Social History Tobacco Use Types Packs/Day Years [...] (Late Contact Info) Description 04/01/2024 4:00 PM WILDLIFE REHABILITATOR Office Visit [facility] [address] [place] [address] Jorge Rabago MD [address] [facility] [address] [place] [address] documented as of this encounter Visit Diagnoses Not on filedocumented in this encounter Care Teams Customer Solutions Supervisor Relationship Specialty Start Date End Date Nicolas Greer MD MPH [address] [address] PCP - General Family Medicine 01/04/22 documented as of this encounter
--- OUTSIDE RECORDS SUMMARY | 2024-03-31 13:15 | XMS_ITS | Encounter Summary ---
Author Organization [facility] Address [address] [place] [address] Phone Care Team Providers Care Gardener Name Role Phone Ariel Christiansen MD Unavailable [phone] Parmjit Vogel MD Unavailable [phone] Nicolas Greer MD Primary Care Provider [phone] Keny Saldaña APRN, MARY Unavailable Cristian Dewitt MD Unavailable Kate Kurtz III, MD, Courtney Unavailable [phone] Raghu Green MD Unavailable Warren Osborn MD Unavailable Ale Spain RN Unavailable Unavailable Chetan Do MD Unavailable Reason for Visit * Reason Comments Medication Refill Encounter Details Date Type Department Care Team (Late st Contact Info) Description 04/09/2023 Refill [facility] #2 [place] [address] Nicolas Greer MD #[address] [address] Medication Refill Social History Tobacco Use Types Packs/Day Years Used Date Smoking Tobacco: Former Cigarettes 0.5 50 Smokeless Tobacco: Never Alcohol Use Standard Drinks/Week Comments No 0 (1 standard drink = 0.6 oz pur e alcohol) [facility] Utilities Answer Date Recorded In the past [...] declined 04/04/2023 How often do you attend mosque or holiness serv ices? Patient declined 04/04/2023 Do you [...] Total Score - Questions 1-9 0 09/05 [facility] [place] of Occupat ional Health - Occupational Stress [...] senior care (including now)? Patient declined 04/04/2023 Education Answer [...] Job Start Date Job End Date Retired [employer] Not on file Not on file Not [...] Med Name: ALBUTEROL HFA 90 MCG INHALER (GA] 8.5 g 1 Sig: INHALE TWO PUFFS [...] 90 days and meeting all other requirements [employer] documented in this encounter Plan of Treatment Upcoming Encounters Date Type Department Care Team (Late st Contact Info) Description 04/24/2024 2:00 PM CDT Office Visit [facility] Medical [facility] - Endocrinology - [place] #2 [place] [address] Chetan Do MD #[address] [address] 08/14/2024 1:00 PM CDT Office Visit [facility] Medical [facility] - Pulmonology & Sleep Medicine [facility] #2 [place] [address] Raghu Green MD #2 [place] [address] 09/17/2024 1:00 PM CDT Office Visit [facility] [place] [facility]2 [place] [address] Nicolas Greer MD #[address] [address] documented as of this encounter Visit Diagnoses Not on filedocumented in this encounter Additional Health Concerns Assessment Noted Time PHQ-9 Depression Total Score: 0 09/22/19 23 1:48 PM CDT documented as of this encounter Care Teams Gardener Relationship Specialty Start Date End Date Nicolas Greer MD #[address] [address] PCP - General Family Medicine 09/08/21 Ariel Christiansen MD Consulting Physician Cardiovascular Disease - Cardiology 07/19/16 [place] [address] [address] Emblem Fuser Tender Pulmonary Disease 06/18/20 Keny Saldaña APRN, PET TRAINING INSTRUCTOR #[address] [address] Nurse Practitioner Advanced Practice Nurse 09/08/21 Cristian Dewitt MD #[address] [address] Consulting Physician Cardiovascular Disease - Cardiology 10/06/21 02/07/24 Yamel Kurtz III, MD #2 [place] [address] Consulting Physician Urology 09/11/22 Raghu Green MD #2 [place] [address] Consulting Physician Pulmonary Disease 01/04/22 Warren Osborn MD #[address] [address] Consulting Physician Colon and Rectal Surgery 05/21/23 Ale Spain, RN [place] Nurse Felt Coverer 09/05/23 Chetan Do MD #[address] [phone] Consulting Physician Endocrinology 01/23/24 documented as of this encounter
--- OUTSIDE RECORDS SUMMARY | 2024-03-31 13:15 | XMS_ITS | Encounter Summary ---
Author Organization [facility] Address [address] [place] [place] [address] Phone Care Team Providers Care Research Recruiter Name Role Phone Ariel Christiansen MD Unavailable [phone] Parmjit Vogel MD Unavailable [phone] Nicolas Greer MD Primary Care Provider [phone] Keny Saldaña APRN, MIDDLE SCHOOL LIBRARIAN Unavailable Cristian Dewitt MD Unavailable Kate Kurtz III, MD, Courtney Unavailable [phone] Raghu Green MD Unavailable Warren Osborn MD Unavailable Ale Spain RN Unavailable Unavailable Chetan Do MD Unavailable Reason for Visit * Reason Comments Medication Refill Encounter Details Date Type Department Care Team (Late Contact Info) Description 05/07/2023 Refill [facility] #2 [place] [address] Yamel Kurtz III, MD #2 [place] [address] Medication Refill Social History Tobacco Use Types Packs/Day Years Used Date Smoking Tobacco: Former Cigarettes 0.5 50 Smokeless Tobacco: Never Alcohol Use Standard Drinks/Week Comments No 0 (1 standard drink = 0.6 oz pur e alcohol) [facility] Utilities Answer Date Recorded In the [...] declined 04/04/2023 How often do you attend baptism or hindu serv ices? Patient declined 04/04/2023 Do you belong to any clubs o r organizations such as baptism groups, unions, fraternal or athletic groups, or [...] Total Score - Questions 1-9 0 09/05 [facility] [place] of Occupat ional Health - Occupational Stress [...] place to sleep or slept in a snf (including now)? Patient declined 04/04/2023 Education Answer [...] Job Start Date Job End Date Retired [employer] Not on file Not on file Not on file documented as of this encounter Plan of Treatment Upcoming Encounters Date Type Department Care Team (Late st Contact Info) Description 04/24/2024 2:00 PM CDT Office Visit [facility] - Endocrinology - [place] #[address] [place] [address] Chetan Do MD #[address] [phone] 08/14/2024 1:00 PM CDT Office Visit [facility] - Pulmonology & Sleep Medicine [facility] #2 [place] [address] Raghu Green MD #2 [place] [address] 09/17/2024 1:00 PM CDT Office Visit [facility] Family [facility] [place] #2 [place] [address] Nicolas Greer MD #[address] [address] documented as of this encounter Visit Diagnoses Diagnosis Mixed stress and urge urinary incontinence Mixed incontinence urge and stress (male)(female) documented in this encounter Additional Health Concerns Assessment Noted Time PHQ-9 Depression Total Score: 0 09/22/19 23 1:48 PM CDT documented as of this encounter Care Teams Research Recruiter Relationship Specialty Start Date End Date Nicolas Greer MD #[address] [address] PCP - General Family Medicine 09/08/21 Ariel Christiansen MD Consulting Physician Cardiovascular Disease - Cardiology 07/19/16 [place] [address] [address] Rail Flaw Detector Operator Pulmonary Disease 06/18/20 Keny Saldaña, MANAGER CAR, MIDDLE SCHOOL LIBRARIAN #[address] [address] Nurse Practitioner Advanced Practice Nurse 09/08/21 Cristian Dewitt MD #[address] [address] Consulting Physician Cardiovascular Disease - Cardiology 10/06/21 02/07/24 Yamel Kurtz III, MD #2 [place] [address] Consulting Physician Urology 09/11/22 Raghu Green MD #2 [place] [address] Consulting Physician Pulmonary Disease 01/04/22 Warren Osborn MD #[address] [address] Consulting Physician Colon and Rectal Surgery 05/21/23 Ale Spain, [place] Nurse Forge Helper 09/05/23 Chetan Do MD #[address] [phone] Consulting Physician Endocrinology 01/23/24 documented as of this encounter
--- OUTSIDE RECORDS SUMMARY | 2024-03-31 13:15 | XMS_ITS | Encounter Summary ---
Author Organization [facility] Address [address] [place] [address] [place] [address] Phone Care Team Providers Care Conditioner Tender Name Role Phone Ariel Christiansen MD Unavailable [phone] Parmjit Vogel MD Unavailable [phone] Nicolas Greer MD Primary Care Provider [phone] Keny Saldaña APRN, CHIEF RADIOLOGIC TECHNOLOGIST Unavailable Cristian Dewitt MD Unavailable Ale Black RN Unavailable Unavailable Ale Spain RN Unavailable Unavailable Jerardo MCCANN MD, Courtney Unavailable [phone] Raghu Green MD Unavailable Warren Osborn MD Unavailable Ale Spain RN Unavailable Unavailable Chetan Do MD Unavailable Reason for Visit * Reason Comments Medication Refill Encounter Details Date Type Department Care Team (Late st Contact Info) Description 03/01/2022 Refill [facility] [place] #2 [place] [address] Nicolas Greer MD #[address] [address] Medication Refill Social History Tobacco Use Types [...] Job Start Date Job End Date Retired [employer] Not on file Not on file Not on file COVID-19 Exposure Response Date Recorded In the last 10 days, have yo u been in contact with someone who was confirmed or suspected to have Coronavirus/COVID-19? No / Unsure 02/15/2022 10:32 AM HAY RAKE OPERATOR documented as of [...] Provider Dept 02/13/22 Telemedicine [facility] 01/11/22 Telemedicine [facility] 01/09/22 Telemedicine Keny Saldaña APRN, MARY [facility] 12/19/21 Office Visit Nicolas Greer MD [facility] 09/08/21 Office Visit Keny Saldaña APRN, CHIEF RADIOLOGIC TECHNOLOGIST [facility] 08/03/21 Telemedicine Nicolas Greer MD [facility] 07/21/21 Telemedicine Nicolas Greer MD [facility] 04/28/21 Telemedicine Nicolas Greer MD [facility] Showing recent visits within past 365 days and meeting all other requirements Future Appointments Date Type Provider Dept 03/22/22 Appointment Nicolas Greer MD [facility] Showing future appointments within next 90 days and meeting all other requirements RAKE OPERATOR documented in this encounter Plan of Treatment Upcoming Encounters Date Type Department Care Team (Late st Contact Info) Description 04/24/2024 2:00 PM CDT Office Visit [facility] Medical Group - Endocrinology - [place] #2 [place] [address] Chetan Do MD #[address] [phone] 08/14/2024 1:00 PM CDT Office Visit [facility] Medical [facility] - Pulmonology & Sleep Medicine [facility] #2 [place] [address] Raghu Green MD #2 [place] [address] 09/17/2024 1:00 PM CDT Office Visit [facility] Medical [facility] - Family Medicine - [place] #2 [place] [address] Nicolas Greer MD #[address] [address] documented as of this encounter Visit Diagnoses Diagnosis Chronic pain of both knees documented in this encounter Additional Health Concerns Assessment Noted Time PHQ-9 Depression Total Score: 0 02/12/19 20 10:45 AM HAY RAKE OPERATOR documented as of this encounter Care Teams Conditioner Tender Relationship Specialty Start Date End Date Nicolas Greer MD #[address] [address] PCP - General Family Medicine 09/08/21 Ariel Christiansen MD Consulting Physician Cardiovascular Disease - Cardiology 07/19/16 [place] [address] [address] Medication Assistant Pulmonary Disease 06/18/20 Keny Saldaña APRN, CHIEF RADIOLOGIC TECHNOLOGIST #[address] [address] Nurse Practitioner Advanced Practice Nurse 09/08/21 Cristian Dewitt MD #[address] [address] Consulting Physician Cardiovascular Disease - Cardiology 10/06/21 02/07/24 Ale Spain, RN [place] Dye House Vat Worker 03/15/22 02/12/23 Ale Spain, RN [place] Nurse Dye House Vat Worker 03/15/22 02/13/23 Yamel Kurtz III, MD #2 [place] [address] Consulting Physician Urology 09/11/22 Raghu Green MD #2 [place] [address] Consulting Physician Pulmonary Disease 01/04/22 Warren Osborn MD #[address] [address] Consulting Physician Colon and Rectal Surgery 05/21/23 Ale Spain RN [place] Nurse Dye House Vat Worker 09/05/23 Chetan Do MD #[address] [phone] Consulting Physician Endocrinology 01/23/24 documented as of this encounter
--- OUTSIDE RECORDS SUMMARY | 2024-03-31 13:15 | XMS_ITS | Encounter Summary ---
Author Organization [facility] Address [address] [place] [address] Phone Care Team Providers Care Major General Name Role Phone Nicolas Greer MD Primary Care Provider [phone] Ariel Christiansen MD Unavailable [phone] Parmjit Vogel MD Unavailable [phone] Nicolas Greer MD Primary Care Provider [phone] Keny Saldaña APRN, TOBACCO ACREAGE MEASURER Unavailable Cristian Dewitt MD Unavailable Ale Black RN Unavailable Unavailable Ale Spain RN Unavailable Unavailable Jerardo MCCANN MD, Courtney Unavailable [phone] Raghu Green MD Unavailable Warren Osborn MD Unavailable Ale Spain RN Unavailable Unavailable Chetan Do MD Unavailable Reason for Visit * Reason Onset Date Comments Follow-up 09/02/2021 Encounter Details Date Type Department Care Team (Late st Contact Info) Description 09/02/2021 Telephone [facility] [address] [place] [address] Nicolas Greer MD [address] [address] Follow-up Social History Tobacco Use Types Packs/Day [...] Job Start Date Job End Date Retired Proviation Not on file Not on file Not [...] 2:00 PM CDT Office Visit [facility] - Endocrinology - [place] #2 [place] [address] Chetan Do MD #[address] [address] 08/14/2024 1:00 PM CDT [facility] - Pulmonology & Sleep Medicine - [place] #2 [place] [address] Raghu Green MD #2 [place] [address] 09/17/2024 1:00 PM CDT Office Visit [facility] - Family Medicine - [place] #2 [place] [address] Nicolas Greer MD #[address] [address] documented as of this encounter Visit Diagnoses Not on filedocumented in this encounter Additional Health Concerns Infection Onset Date Last Indicated Resolved Time COVID - 19 09/02/2021 09/02/2021 09/03/2021 2:05 PM CDT COVID - 19 12/24/2021 12/24/2021 12/26/2021 8:07 AM PHARMACIST MANAGER Respiratory Rule Out - RPA 12/24/2021 12/24/2021 1 02/24/2021 4:41 PM PHARMACIST MANAGER Influenza 12/24/2021 12/24/2021 12/31/2021 12:1 6 AM PHARMACIST MANAGER Assessment Noted Time PHQ-9 Depression Total Score: 0 02/12/19 10:45 AM PHARMACIST MANAGER documented as of this encounter Care Teams Major General Relationship Specialty Start Date End Date Nicolas Greer MD #[address] [address] PCP - General Family Medicine 12/22/14 09/07/21 Nicolas Greer MD #[address] [address] PCP - General Family Medicine 09/08/21 Ariel Christiansen MD #[address] [address] Consulting Physician Cardiovascular Disease - Cardiology 07/19/16 [place] [address] [address] Biology Specimen Technician Pulmonary Disease 06/18/20 Keny Saldaña, CHEMISTRY TEACHER, TOBACCO ACREAGE MEASURER #[address] [address] Nurse Practitioner Advanced Practice Nurse 09/08/21 Cristian Dewitt MD #[address] [address] Consulting Physician Cardiovascular Disease - Cardiology 10/06/21 02/07/24 Ale Spain, RN [place] Cesspool Cleaner 03/15/22 02/12/23 Ale Spain, RN [place] Nurse Cesspool Cleaner 03/15/22 02/13/23 Yamel Kurtz III, MD #2 [place] [address] Consulting Physician Urology 09/11/22 Raghu Green MD #2 [place] [address] Consulting Physician Pulmonary Disease 01/04/22 Warren Osborn MD #[address] [address] Consulting Physician Colon and Rectal Surgery 05/21/23 Ale Spain, WALDO [place] Nurse Cesspool Cleaner 09/05/23 Chetan Do MD #[address] [address] Consulting Physician Endocrinology 01/23/24 documented as of this encounter
--- OUTSIDE RECORDS SUMMARY | 2024-03-31 13:15 | XMS_ITS | Encounter Summary ---
Author Organization [facility] Address [address] [place] [address] Phone Care Team Providers Care Technical Advisor Name Role Phone Ariel Christiansen MD Unavailable [phone] Parmjit Vogel MD Unavailable [phone] Nicolas [place] MD Primary Care Provider [phone] Keny Saldaña APRN, RESOLUTE PROFESSIONAL Unavailable Cristian Dewitt MD Unavailable Unaruslani Ale iRchard RN Unavailable Unavailable Ale Spain RN Unavailable Unavailable Jerardo MCCANN MD, Courtney Unavailable [phone] Raghu [place] MD Unavailable Warren Osborn MD Unavailable Ale Spain RN Unavailable Unavailable Chetan Do MD Unavailable Encounter Details Date Type Department Care Team (Late st Contact Info) Description 02/15/2022 [facility] 1 [place] [id number] Nicolas [place] MD #[address] [address] Anemia, unspecified Social History Tobacco Use Types [...] Job Start Date Job End Date Retired [employer] Not on file Not on file Not on file COVID-19 Exposure Response Date Recorded In the last 10 days, have yo u been in contact with someone who was confirmed or suspected to have Coronavirus/COVID-19? No / Unsure 02/15/2022 10:32 AM SERVICE DESK ANALYST documented as of this encounter Plan of Treatment Upcoming Encounters Date Type Department Care Team (Late st Contact Info) Description 04/24/2024 2:00 PM CDT Office Visit [facility] - Endocrinology - [place] #2 [place] [address] Chetan Do MD #[address] [address] 08/14/2024 1:00 PM CDT Office Visit [facility] - Pulmonology & Sleep Medicine [facility] #2 [place] [address] Raghu [place] MD #2 [place] [address] 09/17/2024 1:00 PM CDT [facility] - [place] #2 [place] [address] Nicolas [place] MD #[address] [address] documented as of this encounter Procedures Procedure Name Priority Date/Time Associated Diagnosis Comments VITAMIN B12 Routine 12/07/2022 11:02 AM CDT Anemia, unspecified THYROID STIMULATING HORMONE (TSH) Routine 02/15/2022 11:02 AM SERVICE DESK ANALYST Anemia, unspecified FERRITIN Routine 02/15/2022 11:02 AM SERVICE DESK ANALYST Anemia, unspecified BASIC METABOLIC PANEL W/ CALCIUM TOTAL Routine 02/15/2022 11:02 AM SERVICE DESK ANALYST Anemia, unspecified documented in this encounter Results * VITAMIN B12 (12/07/2022 11:02 AM CDT) VITAMIN B12 760 243 - 894 pg/mL 02/15/2022 1:18 PM SERVICE DESK ANALYST [facility] Blood No Phlebotomy Charged / Unknown 12/07/2022 11:02 AM CDT 02/15/2022 12:30 PM SERVICE DESK ANALYST Nicolas [place] MD CHEMISTRY ORDERABLES Final Result [facility] #[address] [place] [address] * (ABNORMAL) FERRITIN (02/15/2022 11:02 AM SERVICE DESK ANALYST) FERRITIN 348(H) 13 - 150 ng/mL 02/15/2022 1:11 PM SERVICE DESK ANALYST [facility] Blood No Phlebotomy Charged / Unknown 02/15/2022 11:02 AM SERVICE DESK ANALYST 02/15/2022 12:30 PM SERVICE DESK ANALYST Nicolas [place] MD CHEMISTRY ORDERABLES Final Result Performing Organization Address City/[facility]/ZIP Co de Phone Number [facility] #1 [place] [address] * THYROID STIMULATING HORMONE (TSH) (02/15/2022 11:02 AM SERVICE DESK ANALYST) TSH 1.600 0.270 - 4.200 mIU/L 02/15/2022 1:11 PM SERVICE DESK ANALYST [facility] Blood No Phlebotomy Charged / Unknown 02/15/2022 11:02 AM SERVICE DESK ANALYST 02/15/2022 12:30 PM SERVICE DESK ANALYST Nicolas [place] MD CHEMISTRY ORDERABLES Final Result Performing Organization Address [facility]/ZIP Co de Phone Number [facility] #1 [place] [address] * (ABNORMAL) BASIC METABOLIC PANEL W/ CALCIUM TOTAL (02/15/2022 11:02 AM SERVICE DESK ANALYST) Pathologist [facility] SODIUM 139 136 - 144 mmol/L 02/15/2022 1:11 PM [facility] POTASSIUM 4.2 3.5 - 5.1 mmol/L 02/15/2022 1:11 PM [facility] CHLORIDE 94(L) 100 - 110 mmol/L 02/15/2022 1:11 PM [facility] CO2, VENOUS 36(H) 22 - 32 mmol/L 02/15/2022 1:11 PM [facility] ANION GAP 13.2 8.0 - 20.0 mmol/L 02/15/2022 1:11 PM [facility] GLUCOSE 152(H) 70 - 99 mg/dL 02/15/2022 1:11 PM [facility] BUN 14 8 - 23 mg/dL 02/15/2022 1:11 PM [facility] CREATININE, BLOOD 0.88 0.60 - 1.10 mg/dL 02/15/2022 1:11 PM SERVICE DESK ANALYST [facility] BUN/CREATININE RATIO 16 12 - 20 ratio 02/15/2022 1:11 PM SERVICE DESK ANALYST [facility] CALCIUM 11.7(H) 8.9 - 10.3 mg/dL 02/15/2022 1:11 PM SERVICE DESK ANALYST [facility] GFR, ESTIMATED >60 >=60 02/15/2022 1:11 PM SERVICE DESK ANALYST [facility] Comment: Creatinine Clearance is the preferred criteria for selecting drug dose adjustments in renally impaired patients. The GFR is provided as additional pertinent clinical information. GFR is reported in mL/min/1.73 sq m. Calculation based on the Chronic Kidney Disease Epidemiology Collaboration (CKD- EPI) equation refit without adjustment for race. GFR, EST. >60 >=60 023 1:11 PM SERVICE DESK ANALYST [facility] GFR, EST. NONAFRICAN >60 >=60 02/15/2022 1:11 PM SERVICE DESK ANALYST [facility] Blood No Phlebotomy Charged / Unknown 02/15/2022 11:02 AM SERVICE DESK ANALYST 02/15/2022 12:30 PM SERVICE DESK ANALYST Nicolas [place] MD CHEMISTRY ORDERABLES Final Result [facility] [address] [place] [address] documented in this encounter Visit Diagnoses Diagnosis Anemia, unspecified documented in this encounter Additional Health Concerns Assessment Noted Time PHQ-9 Depression Total Score: 0 02/12/19 20 10:45 AM SERVICE DESK ANALYST documented as of this encounter Care Teams Technical Advisor Relationship Specialty Start Date End Date Nicolas [place] MD #[address] [address] PCP - General Family Medicine 09/08/21 Ariel Christiansen MD Consulting Physician Cardiovascular Disease - Cardiology 07/19/16 [place] [address] [facility] [address] [place] [address] Fab[employer]ator [employer] Pulmonary Disease 06/18/20 Keny Saldaña APRN, RESOLUTE PROFESSIONAL #[address] [address] Nurse Practitioner Advanced Practice Nurse 09/08/21 Cristian Dewitt MD #[address] [address] Consulting Physician Cardiovascular Disease - Cardiology 10/06/21 02/07/24 Ale Spain, RN [place] Carpenter Repair 03/15/22 02/12/23 Ale Spain, RN [place] Nurse Carpenter Repair 03/15/22 02/13/23 Yamel Kurtz III, MD #2 [place] [address] Consulting Physician Urology 09/11/22 Raghu [place] MD #2 [place] [address] Consulting Physician Pulmonary Disease 01/04/22 Warren Osborn MD #[address] [address] Consulting Physician Colon and Rectal Surgery 05/21/23 Ale Spain, RN [place] Nurse Carpenter Repair 09/05/23 Chetan Do MD #[address] [phone] Consulting Physician Endocrinology 01/23/24 documented as of this encounter
--- OUTSIDE RECORDS SUMMARY | 2024-03-31 13:15 | XMS_ITS | Encounter Summary ---
Author Organization [facility] Address [address] [place] [address] Phone Care Team Providers Care Bed Machine Operator Name Role Phone Ariel Christiansen MD Unavailable [phone] Parmjit Vogel MD Unavailable [phone] Nicolas [place] MD Primary Care Provider [phone] Keny Saldaña APRN, HOP SORTER Unavailable Cristian Dewitt MD Unavailable Unaruslani Ale Richard RN Unavailable Unavailable Ale Spain RN Unavailable Unavailable Jerardo MCCANN MD, Courtney Unavailable [phone] Raghu [place] MD Unavailable Warren Osborn MD Unavailable Ale Spain RN Unavailable Unavailable Chetan Do MD Unavailable Encounter Details Date Type Department Care Team (Late st Contact Info) Description 02/15/2022 [facility] 1 [place] [phone] Nicolas [place] MD #[address] [address] Anemia, unspecified Social History Tobacco Use Types [...] Job Start Date Job End Date Retired [employer] Not on file Not on file Not on file COVID-19 Exposure Response Date Recorded In the last 10 days, have yo u been in contact with someone who was confirmed or suspected to have Coronavirus/COVID-19? No / Unsure 02/15/2022 10:32 AM EPIC MANAGER documented as of this encounter Plan of Treatment Upcoming Encounters Date Type Department Care Team (Late st Contact Info) Description 04/24/2024 2:00 PM CDT Office Visit [facility] - Endocrinology - [place] #2 [place] [address] Chetan Do MD #[address] [address] 08/14/2024 1:00 PM CDT Office Visit [facility] - Pulmonology & Sleep Medicine [facility] #2 [place] [address] Raghu [place] MD #2 [place] [address] 09/17/2024 1:00 PM CDT [facility] - [place] #2 [place] [address] Nicolas [place] MD [address] [address] documented as of this encounter Procedures Procedure Name Priority Date/Time Associated Diagnosis Comments THYROXINE (T4) FREE Routine 02/15/2022 1 1:02 AM EPIC MANAGER Anemia, unspecified IRON (FE) Routine 02/15/2022 11:02 AM EPIC MANAGER Anemia, unspecified IONIZED CALCIUM (ICA) Routine 02/15/2022 11:02 AM EPIC MANAGER Anemia, unspecified documented in this encounter Results * THYROXINE (T4) FREE (02/15/2022 11:02 AM EPIC MANAGER) T4 FREE 1.4 0.9 - 1.7 ng/dL 02/15/2022 1:10 PM EPIC MANAGER [facility] Blood No Phlebotomy Charged / Unknown 02/15/2022 11:02 AM EPIC MANAGER 02/15/2022 12:34 PM EPIC MANAGER Nicolas [place] MD CHEMISTRY ORDERABLES Final Result Performing Organization Address City/[facility]/ZIP Co de Phone Number [facility] #1 [facility] [place] [address] * (ABNORMAL) IRON (FE) (02/15/2022 11:02 AM EPIC MANAGER) IRON 146.88(H) 37 - 145 mcg/dL 02/15/2022 1:03 PM EPIC MANAGER [facility] Blood No Phlebotomy Charged / Unknown 02/15/2022 11:02 AM EPIC MANAGER 02/15/2022 12:34 PM EPIC MANAGER Nicolas [place] MD CHEMISTRY ORDERABLES Final Result [facility]1 [place] [address] * (ABNORMAL) IONIZED CALCIUM (ICA) (02/15/2022 11:02 AM EPIC MANAGER) CALCIUM IONIZED 1.35(H) 1.19 - 1.31 mmol/L 02/15/2022 12:52 PM EPIC MANAGER [facility] Blood No Phlebotomy Charged / Unknown 02/15/2022 11:02 AM EPIC MANAGER 02/15/2022 12:34 PM EPIC MANAGER Nicolas [place] MD CHEMISTRY ORDERABLES Final Result [facility]1 [place] [address] documented in this encounter Visit Diagnoses Diagnosis Anemia, unspecified documented in this encounter Additional Health Concerns Assessment Noted Time PHQ-9 Depression Total Score: 0 02/12/19 20 10:45 AM EPIC MANAGER documented as of this encounter Care Teams Bed Machine Operator Relationship Specialty Start Date End Date Nicolas [place] MD #[address] [address] PCP - General Family Medicine 09/08/21 Ariel Christiansen MD Consulting Physician Cardiovascular Disease - Cardiology 07/19/16 [place] [address] [address] Credit Union Teller Pulmonary Disease 06/18/20 Keny Saldaña APRN, HOP SORTER #[address] [address] Nurse Practitioner Advanced Practice Nurse 09/08/21 Cristian Dewitt MD #[address] [address] Consulting Physician Cardiovascular Disease - Cardiology 10/06/21 02/07/24 Ale Spain, RN [place] Warehouse Packer 03/15/22 02/12/23 Ale Spain, RN [place] Nurse Warehouse Packer 03/15/22 02/13/23 Yamel Kurtz III, MD #2 [place] [address] Consulting Physician Urology 09/11/22 Raghu [place] MD #2 [place] [address] Consulting Physician Pulmonary Disease 01/04/22 Warren Osborn MD #[address] [address] Consulting Physician Colon and Rectal Surgery 05/21/23 Ale Spain, [place] Nurse Warehouse Packer 09/05/23 Chetan Do MD #[address] [address] Consulting Physician Endocrinology 01/23/24 documented as of this encounter
--- OUTSIDE RECORDS SUMMARY | 2024-03-31 13:15 | XMS_ITS | Encounter Summary ---
Author Organization [facility] Address [address] [place] [address] Phone Care Team Providers Care Avionics Systems Repairer Name Role Phone Ariel Christiansen MD Unavailable [phone] Parmjit Vogel MD Unavailable [phone] Nicolas [place] MD Primary Care Provider [phone] Keny Saldaña APRN, MARY Unavailable Cristian Dewitt MD Unavailable Kate Kurtz III, MD, Courtney Unavailable [phone] Raghu [place] MD Unavailable Warren Osborn MD Unavailable Ale Spain RN Unavailable Unavailable Chetan Do MD Unavailable Reason for Visit * Reason Comments Medication Refill Encounter Details Date Type Department Care Team (Late st Contact Info) Description 03/02/2023 Refill [facility] #2 [place] [address] Nicolas [place] MD #[address] [address] Medication Refill Social History Tobacco Use Types [...] Industry Job Start Date Job End Date [employer] Not on file Not on file Not on file documented as of this encounter Miscellaneous Notes * Telephone Encounter - Nicolle Funk RN - 03/02/2023 2:32 PM CST Medication warning Per nursing clinical judgement, provider to review and approve the medication(s) order(s) if appropriate. Requested Prescriptions Pending Prescriptions Disp Refills Breztri Between Digital 160-9-4.8 MCG/ACT Aerosol [Pharmacy Med Name: BREZTRI [...] Provider Dept 04/04/23 Appointment Nicolas [place]er MD [facility] Showing future appointments within next 90 days and meeting all other requirements Passed - Active short-acting beta agonist prescription M [employer] TURBINE ASSEMBLER documented in this encounter Plan of Treatment Upcoming Encounters Date Type Department Care Team (Late st Contact Info) Description 04/24/2024 2:00 PM CDT Office Visit [facility] Medical [facility] - Endocrinology - [place] #2 [place] [address] Chetan Do MD #2 [facility] [address] [place] [address] 08/14/2024 1:00 PM CDT Office Visit [facility] Medical [facility] - Pulmonology & Sleep Medicine - [place] #2 [place] [address] Raghu [place] MD #2 [facility] [place] [address] 09/17/2024 1:00 PM CDT Office Visit [facility] Medical [facility] - Family Medicine - [place] #[address] [facility] [place] [address] Nicolas Greer MD #2 [facility] [address] [place] [address] documented as of this encounter Visit Diagnoses Not on filedocumented in this encounter Additional Health Concerns Assessment Noted Time PHQ-9 Depression Total Score: 0 09/22/19 23 1:48 PM CDT documented as of this encounter Care Teams Avionics Systems Repairer Relationship Specialty Start Date End Date Nicolas [place]er MD #2 [facility] [address] [place] [address] PCP - General Family Medicine 09/08/21 Ariel Christiansen MD Consulting Physician Cardiovascular Disease - Cardiology 07/19/16 [place] [address] [address] Supervisor Inspection Pulmonary Disease 06/18/20 Keny Saldaña, SUPPLIER QUALITY SPECIALIST, BUSINESS OFFICE COORDINATOR #[address] [address] Nurse Practitioner Advanced Practice Nurse 09/08/21 Cristian Dewitt MD #[address] [address] Consulting Physician Cardiovascular Disease - Cardiology 10/06/21 02/07/24 Yamel Kurtz III, MD #2 [place] [address] Consulting Physician Urology 09/11/22 Raghu Green MD #2 [place] [address] Consulting Physician Pulmonary Disease 01/04/22 Warren Osborn MD #[address] [address] Consulting Physician Colon and Rectal Surgery 05/21/23 Ale Spain, [place] Nurse Lithoduplicator Operator 09/05/23 Chetan Do MD #[address] [address] Consulting Physician Endocrinology 01/23/24 documented as of this encounter
--- OUTSIDE RECORDS SUMMARY | 2024-03-31 13:15 | XMS_ITS | Encounter Summary ---
Author Organization [facility] Address [address] [place] [address] Phone Care Team Providers Care [employer] Principal Name Role Phone Nicolas [place] MD Primary Care Provider [phone] Ariel Christiansen MD Unavailable [phone] Parmjit Vogel MD Unavailable [phone] Nicolas [place] MD Primary Care Provider [phone] Keny Saldaña APRN, SPECIAL NEEDS NANNY Unavailable Cristian Dewitt MD Unavailable Ale Black RN Unavailable Unavailable Ale Spain RN Unavailable Unavailable Jerardo MCCANN MD, Courtney Unavailable [phone] Raghu [place] MD Unavailable Warren Osborn MD Unavailable Ale Spain RN Unavailable Unavailable Chetan Do MD Unavailable Reason for Visit * Reason Comments Medication Refill Encounter Details Date Type Department Care Team (Late st Contact Info) Description 12/21/2020 Refill [facility] #2 [place] [address] Nicolas [place] MD #[address] [address] Medication Refill Social History Tobacco Use Types [...] Job Start Date Job End Date Retired [employer] Not on file Not on file Not on file COVID-19 Exposure Response Date Recorded In the last month, have you been in contact with someone who was confirmed or suspected to have Coronavirus / COVID-19? No / Unsure 12/20/2020 11:11 AM ACTIVATED SLUDGE OPERATOR documented as of this encounter Miscellaneous [...] 6 months ago SOB (shortness of breath) [facility] Nicolas Waters MD 9 months ago Chronic obstructive pulmonary disease, unspecified COPD type (HCC) [facility] Nicolas Waters MD Upcoming Appointments Future Appointments In 3 months Nicolas [place] MD [facility]QU[facility] INSTALLER - Recent and Past Visits Recent Visits Date Type Provider Dept 12/20/20 Office Visit Nicolas Greer MD [facility] 09/22/20 Office Visit Nicolas Greer MD [facility] 06/21/20 Office Visit Nicolas Greer MD [facility] 06/08/20 Office Visit Nicolas Greer MD [facility] 03/11/20 Office Visit Nicolas Greer MD [facility] [place] 10/14/19 Office Visit Nicolas Greer MD [facility] Showing recent visits within past 460 days with a meds authorizing provider and meeting all other requirements Future Appointments No visits were found meeting these conditions. Showing future appointments within next 90 days with a meds authorizing provider and meeting all other requirements VATED SLUDGE OPERATOR documented in this encounter Plan of Treatment Upcoming Encounters Date Type Department Care Team (Late st Contact Info) Description 04/24/2024 2:00 PM CDT Office Visit [facility] Medical [facility] Endocrinology - [place] #2 [place] [address] Chetan Do MD #[address] [address] 08/14/2024 1:00 PM CDT Office Visit [facility] Medical [facility] - Pulmonology & Sleep Medicine - [place] #2 [place] [address] Raghu Green MD #2 [place] [address] 09/17/2024 1:00 PM CDT [facility] #2 [place] [address] Nicolas [place]er MD #[address] [address] documented as of this encounter Visit Diagnoses Diagnosis Pulmonary emphysema, unspecified emphysema type (HCC) documented in this encounter Additional Health Concerns Infection Onset Date Last Indicated Resolved Time COVID - 19 09/02/2021 09/02/2021 09/03/2021 2:05 PM CDT COVID - 19 12/24/2021 12/24/2021 12/26/2021 8:07 AM ACTIVATED SLUDGE OPERATOR Respiratory Rule Out - RPA 12/24/2021 12/24/2021 1 02/24/2021 4:41 PM ACTIVATED SLUDGE OPERATOR Influenza 12/24/2021 12/24/2021 12/31/2021 12:1 6 AM ACTIVATED SLUDGE OPERATOR Assessment Noted Time PHQ-9 Depression Total Score: 0 02/12/19 10:45 AM ACTIVATED SLUDGE OPERATOR documented as of this encounter Care Teams [employer] Principal Relationship Specialty Start Date End Date Nicolas [place] MD #[address] [address] PCP - General Family Medicine 12/22/14 09/07/21 Nicolas Greer MD #[address] [address] PCP - General Family Medicine 09/08/21 Ariel Christiansen MD #[address] [address] Consulting Physician Cardiovascular Disease - Cardiology 07/19/16 [place] [address] [address] Immigration Guard Pulmonary Disease 06/18/20 Keny Saldaña APRN, SPECIAL NEEDS NANNY #[address] [address] Nurse Practitioner Advanced Practice Nurse 09/08/21 Cristian Dewitt MD #[address] [address] Consulting Physician Cardiovascular Disease - Cardiology 10/06/21 02/07/24 Ale Spain, RN [place] Manager Of Investigations 03/15/22 02/12/23 Ale Spain, RN [place] Nurse Manager Of Investigations 03/15/22 02/13/23 Yamel Kurtz III, MD #2 [place] [address] Consulting Physician Urology 09/11/22 Raghu Green MD #2 [place] [address] Consulting Physician Pulmonary Disease 01/04/22 Warren Osborn MD #[address] [address] Consulting Physician Colon and Rectal Surgery 05/21/23 Ale Spain, RN [place] Nurse Manager Of Investigations 09/05/23 Chetan Do MD #[address] [phone] Consulting Physician Endocrinology 01/23/24 documented as of this encounter
--- OUTSIDE RECORDS SUMMARY | 2024-03-31 13:15 | XMS_ITS | Encounter Summary ---
Author Organization [facility] Address [address] [place] [address] Phone Care Team Providers Care Roll Plugger Machine Operator Name Role Phone Ariel Christiansen MD Unavailable [phone] Parmjit Vogel MD Unavailable [phone] Nicolas Greer MD Primary Care Provider [phone] Keny Saldaña APRN, LIQUOR STORE MANAGER Unavailable Cristian Dewitt MD Unavailable Unaruslani Ale Richard RN Unavailable Unavailable Ale Spain RN Unavailable Unavailable Jerardo MCCANN MD, Courtney Unavailable [phone] Raghu Green MD Unavailable Warren Osborn MD Unavailable Ale Spain RN Unavailable Unavailable Chetan Do MD Unavailable Encounter Details Date Type Department Care Team (Late st Contact Info) Description 01/03/2022 [facility] [address] [place] [phone] Nicolas Greer MD #[address] [address] Hypercalcemia Social History Tobacco Use Types Packs/Day [...] Industry Job Start Date Job End Date [employer] Not on file Not on file Not on file COVID-19 Exposure Response Date Recorded In the last 10 days, have yo u been in contact with someone who was confirmed or suspected to have Coronavirus/COVID-19? No / Unsure 01/05/2022 8:15 AM SENIOR NETWORK ADMINISTRATOR documented as of this encounter Plan of Treatment Upcoming Encounters Date Type Department Care Team (Late st Contact Info) Description 04/24/2024 2:[address] PM [address]T Office Visit [facility] - Endocrinology - [place] #2 [place] [address] Chetan Do MD #[address] [phone] 08/14/2024 1:00 PM CDT Office Visit [facility] Group - Pulmonology & Sleep Medicine [facility] #2 [place] [address] Raghu Green MD #2 [place] [address] 09/17/2024 1:00 PM CDT [facility] - Family Medicine - [place] #2 [place] [address] Nicolas Greer MD #[address] [address] documented as of this encounter Procedures Procedure Name Priority Date/Time Associated Diagnosis Comments IONIZED CALCIUM (ICA) Routine 01/03/2022 1:43 PM SENIOR NETWORK ADMINISTRATOR Hypercalcemia documented in this encounter Results * (ABNORMAL) IONIZED CALCIUM (ICA) (01/03/2022 1:43 PM SENIOR NETWORK ADMINISTRATOR) CALCIUM IONIZED 1.41(H) 1.19 - 1.31 mmol/L 01/03/2022 2:57 PM SENIOR NETWORK ADMINISTRATOR [facility] Blood No Phlebotomy Charged / Unknown 01/03/2022 1:43 PM SENIOR NETWORK ADMINISTRATOR 01/03/2022 2:37 PM SENIOR NETWORK ADMINISTRATOR Nicolas Greer MD CHEMISTRY ORDERABLES Final Result [facility] #1 [place] [address] documented in this encounter Visit Diagnoses Diagnosis Hypercalcemia documented in this encounter Additional Health Concerns Assessment Noted Time PHQ-9 Depression Total Score: 0 02/12/19 20 10:45 AM SENIOR NETWORK ADMINISTRATOR documented as of this encounter Care Teams Roll Plugger Machine Operator Relationship Specialty Start Date End Date Nicolas Greer MD #[address] [address] PCP - General Family Medicine 09/08/21 Ariel Christiansen MD Consulting Physician Cardiovascular Disease - Cardiology 07/19/16 [place] [address] [address] Client Resource Specialist Pulmonary Disease 06/18/20 Keny Saldaña APRN, LIQUOR STORE MANAGER #[address] [address] Nurse Practitioner Advanced Practice Nurse 09/08/21 Cristian Dewitt MD #[address] [address] Consulting Physician Cardiovascular Disease - Cardiology 10/06/21 02/07/24 Ale Spain, RN [place] Plate Finisher 03/15/22 02/12/23 Ale Spain, RN [place] Nurse Plate Finisher 03/15/22 02/13/23 Yamel Kurtz III, MD #2 [place] [address] Consulting Physician Urology 09/11/22 Raghu Green MD #2 [place] [address] Consulting Physician Pulmonary Disease 01/04/22 Warren Osborn MD #[address] [address] Consulting Physician Colon and Rectal Surgery 05/21/23 Ale Spain, RN [place] Nurse Plate Finisher 09/05/23 Chetan Do MD #[address] [phone] Consulting Physician Endocrinology 01/23/24 documented as of this encounter
--- OUTSIDE RECORDS SUMMARY | 2024-03-31 13:15 | XMS_ITS | Encounter Summary ---
Author Organization [facility] Address [address] [place] [address] [place] [address] Phone Care Team Providers Care Web Press Operator Assistant Name Role Phone Nicolas Greer MD Primary Care Provider [phone] Ariel Christiansen MD Unavailable [phone] Parmjit Vogel MD Unavailable [phone] Nicolas Greer MD Primary Care Provider [phone] Keny Saldaña APRN, STITCH BONDER MACHINE OPERATOR HELPER Unavailable Cristian Dewitt MD Unavailable Ale Black RN Unavailable Unavailable Ale Spain RN Unavailable Unavailable Jerardo MCCANN MD, Courtney Unavailable [phone] Raghu Green MD Unavailable Warren Osborn MD Unavailable Ale Spain RN Unavailable Unavailable Chetan Do MD Unavailable Encounter Details Date Type Department Care Team (Late st Contact Info) Description 09/06/2021 Home Health Resumpti on of Care Planning [facility] [address] [place] [address] Social History Tobacco Use Types [...] Job Start Date Job End Date Retired [employer] Not on file Not on file Not [...] [facility] Medical Group - Endocrinology [facility] #2 [place] [address] Chetan Do MD #[address] [phone] 08/14/2024 1:00 PM CDT Office Visit [facility] Medical Group - Pulmonology & Sleep Medicine [facility] #2 [place] [phone] Raghu Green MD #2 [place] [phone] 09/17/2024 1:00 PM CDT [facility] Family Medicine - [place] #2 [place] [address] Nicolas Greer MD #[address] [address] documented as of this encounter Visit Diagnoses Not on filedocumented in this encounter Additional Health Concerns Infection Onset Date Last Indicated Resolved Time COVID - 19 12/24/2021 12/24/2021 12/26/2021 8:07 AM MACHINE BINDER STRIPPER Respiratory Rule Out - RPA 12/24/2021 12/24/2021 1 02/24/2021 4:41 PM MACHINE BINDER STRIPPER Influenza 12/24/2021 12/24/2021 12/31/2021 12:1 6 AM MACHINE BINDER STRIPPER Assessment Noted Time PHQ-9 Depression Total Score: 0 02/12/19 10:45 AM MACHINE BINDER STRIPPER documented as of this encounter Care Teams Web Press Operator Assistant Relationship Specialty Start Date End Date Nicolas Greer MD #[address] [address] PCP - General Family Medicine 12/22/14 09/07/21 Nicolas Greer MD #[address] [address] PCP - General Family Medicine 09/08/21 Ariel Christiansen MD #[address] [address] Consulting Physician Cardiovascular Disease - Cardiology 07/19/16 [place] [address] [address] Assembler Metal Furniture Pulmonary Disease 06/18/20 Keny Saldaña APRN, STITCH BONDER MACHINE OPERATOR HELPER #[address] [address] Nurse Practitioner Advanced Practice Nurse 09/08/21 Cristian Dewitt MD #[address] [address] Consulting Physician Cardiovascular Disease - Cardiology 10/06/21 02/07/24 Ale Spain, RN [place] Stain Dipper 03/15/22 02/12/23 Ale Spain, RN [place] Nurse Stain Dipper 03/15/22 02/13/23 Yamel Kurtz III, MD #2 [place] [address] Consulting Physician Urology 09/11/22 Raghu Green MD #2 [place] [address] Consulting Physician Pulmonary Disease 01/04/22 Warren Osborn MD #[address] [address] Consulting Physician Colon and Rectal Surgery 05/21/23 Ale Spain, [place] Nurse Stain Dipper 09/05/23 Chetan Do MD #[address] [address] Consulting Physician Endocrinology 01/23/24 documented as of this encounter
--- OUTSIDE RECORDS SUMMARY | 2024-03-31 13:15 | XMS_ITS | Encounter Summary ---
Author Organization [facility] Address [address] [place] [address] Phone Care Team Providers Care Sports Apparel Internship Name Role Phone Nicolas Greer MD Primary Care Provider [phone] Ariel Christiansen MD Unavailable [phone] Parmjit Vogel MD Unavailable [phone] Nicolas Greer MD Primary Care Provider [phone] Keny Saldaña APRN, MARKETING TECHNOLOGIST Unavailable Cristian Dewitt MD Unavailable Ale Black RN Unavailable Unavailable Ale Spain RN Unavailable Unavailable Jerardo MCCANN MD, Courtney Unavailable [phone] Raghu Green MD Unavailable Warren Osborn MD Unavailable Ale Spain RN Unavailable Unavailable Chetan Do MD Unavailable Reason for Visit * Reason Comments Medication Refill Encounter Details Date Type Department Care Team (Late st Contact Info) Description [facility]/26/[facility] [address] [place], [place] [phone] Nicolas Greer MD #[address] [address] Medication Refill Social History Tobacco Use Types [...] Job Start Date Job End Date Retired [employer] Not on file Not on file Not [...] [facility] Keny Saldaña APN, MARKETING TECHNOLOGIST Upcoming Appointments documented in this encounter Plan of Treatment Upcoming Encounters Date Type Department Care Team (Late st Contact Info) Description 04/24/2024 2:00 PM CDT Office Visit [facility] Medical [facility] - Endocrinology - [place] #2 [place] [address] Chetan Do MD #2 [facility] [address] [place] [address] 08/14/2024 1:00 PM CDT Office Visit [facility] Medical [facility] - Pulmonology & Sleep Medicine - [place] #2 [place] [address] Raghu Green MD #2 [place] [address] 09/17/2024 1:00 PM CDT Office Visit [facility] Medical [facility] - Family Medicine - [place] #2 [place] [address] Nicolas Greer MD #2 [facility] [address] [place] [address] documented as of this encounter Visit Diagnoses Diagnosis Depression with anxiety Dysthymic disorder documented in this encounter Additional Health Concerns Infection Onset Date Last Indicated Resolved Time COVID - 19 10/14/2019 10/14/2019 10/17/2019 10:5 9 AM CDT COVID - 19 03/11/2020 03/11/2020 03/31/2020 12:1 8 AM PIE TOPPER COVID - 19 09/02/2021 09/02/2021 09/03/2021 2:05 PM CDT COVID - 19 12/24/2021 12/24/2021 12/26/2021 8:07 AM PIE TOPPER Respiratory Rule Out - RPA 12/24/2021 12/24/2021 1 02/24/2021 4:41 PM PIE TOPPER Influenza 12/24/2021 12/24/2021 12/31/2021 12:1 6 AM PIE TOPPER Assessment Noted Time PHQ-9 Depression Total Score: 0 02/12/19 20 10:45 AM PIE TOPPER documented as of this encounter Care Teams Sports Apparel Internship Relationship Specialty Start Date End Date Nicolas Greer MD #[address] [address] PCP - General Family Medicine 12/22/14 09/07/21 Nicolas Greer MD #[address] [address] PCP - General Family Medicine 09/08/21 Ariel Christiansen MD #[address] [address] Consulting Physician Cardiovascular Disease - Cardiology 07/19/16 [place] [address] [address] Compounder Pulmonary Disease 06/18/20 Keny Saldaña APRN, MARKETING TECHNOLOGIST #[address] [address] Nurse Practitioner Advanced Practice Nurse 09/08/21 Cristian Dewitt MD #[address] [address] Consulting Physician Cardiovascular Disease - Cardiology 10/06/21 02/07/24 Ale Spain, RN [place] Watch And Clock Repair Clerk 03/15/22 02/12/23 Ale Spain, RN [place] Nurse Watch And Clock Repair Clerk 03/15/22 02/13/23 Yamel Kurtz III, MD #2 [place] [address] Consulting Physician Urology 09/11/22 Raghu Green MD #2 [place] [address] Consulting Physician Pulmonary Disease 01/04/22 Warren Osborn MD #[address] [phone] Consulting Physician Colon and Rectal Surgery 05/21/23 Ale Spain, [place] Nurse Watch And Clock Repair Clerk 09/05/23 Chetan Do MD #[address] [address] Consulting Physician Endocrinology 01/23/24 documented as of this encounter
--- OUTSIDE RECORDS SUMMARY | 2024-03-31 13:15 | XMS_ITS | Encounter Summary ---
Author Organization [facility] Address [address] [place] [address] Phone Care Team Providers Care Telephone Installer Name Role Phone Nicolas Greer MD Primary Care Provider [phone] Ariel Christiansen MD Unavailable [phone] Parmjit Vogel MD Unavailable [phone] Nicolas Greer MD Primary Care Provider [phone] Keny Saldaña APRN, CONTRACT SERVICEMAN Unavailable Cristian Dewitt MD Unavailable Ale Black RN Unavailable Unavailable Ale Spain RN Unavailable Unavailable Jerardo MCCANN MD, Courtney Unavailable [phone] Raghu Green MD Unavailable Warren Osborn MD Unavailable Ale Spain RN Unavailable Unavailable Chetan Do MD Unavailable Reason for Visit * Reason Comments Medication Refill Encounter Details Date Type Department Care Team (Late st Contact Info) Description 08/04/2021 Refill [facility] #2 [place] [address] Nicolas Greer MD #2 [facility] [address] [place] [address] Medication Refill Social History Tobacco Use Types [...] Job Start Date Job End Date Retired [employer] Not on file Not on file Not [...] Provider Dept 08/03/21 Telemedicine Nicolas Greer MD [facility] 07/21/21 Telemedicine Nicolas Greer MD [...] 2:00 PM CDT Office Visit [facility] Medical [facility] - Endocrinology - [place] #2 [place] [address] Chetan Do MD #[address] [address] 08/14/2024 1:00 PM CDT Office Visit [facility] Medical [facility] - Pulmonology & Sleep Medicine - [place] #2 [facility] [place] [address] Rgahu Green MD #2 [facility] [place] [address] 09/17/2024 1:00 PM CDT Office Visit [facility] Medical [facility] - Family Medicine - [place] #2 [facility] [place] [address] Nicolas Greer MD #[address] [place] [address] documented as of this encounter Visit Diagnoses Not on filedocumented in this encounter Additional Health Concerns Infection Onset Date Last Indicated Resolved Time COVID - 19 09/02/2021 09/02/2021 09/03/2021 2:05 PM CDT COVID - 19 12/24/2021 12/24/2021 12/26/2021 8:07 AM CONTROLLER OPERATIONS AND HR MANAGER Respiratory Rule Out - RPA 12/24/2021 12/24/2021 1 02/24/2021 4:41 PM CONTROLLER OPERATIONS AND HR MANAGER Influenza 12/24/2021 12/24/2021 12/31/2021 12:1 6 AM CONTROLLER OPERATIONS AND HR MANAGER Assessment Noted Time PHQ-9 Depression Total Score: 0 02/12/19 10:45 AM CONTROLLER OPERATIONS AND HR MANAGER documented as of this encounter Care Teams Telephone Installer Relationship Specialty Start Date End Date Nicolas Greer MD #[address] [address] PCP - General Family Medicine 12/22/14 09/07/21 Nicolas Greer MD #[address] [address] PCP - General Family Medicine 09/08/21 Ariel Christiansen MD #[address] [address] Consulting Physician Cardiovascular Disease - Cardiology 07/19/16 [place] [address] [address] Wound Specialist Pulmonary Disease 06/18/20 Keny Saldaña APRN, CONTRACT SERVICEMAN #[address] [address] Nurse Practitioner Advanced Practice Nurse 09/08/21 Cristian Dewitt MD #[address] [address] Consulting Physician Cardiovascular Disease - Cardiology 10/06/21 02/07/24 Ale Spain, RN [place] Health Lead 03/15/22 02/12/23 Ale Spain, RN [place] Nurse Health Lead 03/15/22 02/13/23 Yamel Kurtz III, MD #2 [place] [address] Consulting Physician Urology 09/11/22 Raghu Green MD #2 [place] [address] Consulting Physician Pulmonary Disease 01/04/22 Warren Osborn MD #[address] [address] Consulting Physician Colon and Rectal Surgery 05/21/23 Ale Spain, RN [place] Nurse Health Lead 09/05/23 Chetan Do MD #[address] [address] Consulting Physician Endocrinology 01/23/24 documented as of this encounter
--- OUTSIDE RECORDS SUMMARY | 2024-03-31 13:15 | XMS_ITS | Encounter Summary ---
Author Organization [facility] Address [address] [place] [address] [place] [address] Phone Care Team Providers Care Local Bulk Driver Name Role Phone Nicolas Greer MD Primary Care Provider [phone] Ariel Christiansen MD Unavailable [phone] Parmjit Vogel MD Unavailable [phone] Nicolas Greer MD Primary Care Provider [phone] Keny Saldaña APRN, INFECTION PREVENTIONIST Unavailable Cristian Dewitt MD Unavailable Ale Black RN Unavailable Unavailable Ale Spain RN Unavailable Unavailable Jerardo MCCANN MD, Courtney Unavailable [phone] Raghu Green MD Unavailable Warren Osborn MD Unavailable Ale Spain RN Unavailable Unavailable Chetan Do MD Unavailable Encounter Details Date Type Department Care Team (Late st Contact Info) Description 09/06/2021 Telephone [facility] Med Surg [address] [place] [address] Tierney Merritt RN [place] Social History [...] Job Start Date Job End Date Retired [employer] Not on file Not on file Not [...] to follow up after recent discharge from [facility] Med-Surg Unit. How are you feeling? Patient [...] Description 04/24/2024 2:00 PM CDT Office Visit [facility] Medical Group - Endocrinology - [place] #2 [place] [address] Chetan Do MD #[address] [place] [address] 08/14/2024 1:00 PM CDT Office Visit [facility] Medical [facility] - Pulmonology & Sleep Medicine - [place] #2 [place] [address] Raghu Green MD #2 [facility] [address] 09/17/2024 1:00 PM CDT Office Visit [facility] Medical [facility] - Family Medicine - [place] #2 [facility] [place] [address] Nicolas Greer MD #[address] [place] [address] documented as of this encounter Visit Diagnoses Not on filedocumented in this encounter Additional Health Concerns Infection Onset Date Last Indicated Resolved Time COVID - 19 12/24/2021 12/24/2021 12/26/2021 8:07 AM WHOLESALER Respiratory Rule Out - RPA 12/24/2021 12/24/2021 1 02/24/2021 4:41 PM WHOLESALER Influenza 12/24/2021 12/24/2021 12/31/2021 12:1 6 AM WHOLESALER Assessment Noted Time PHQ-9 Depression Total Score: 0 02/12/19 10:45 AM WHOLESALER documented as of this encounter Care Teams Local Bulk Driver Relationship Specialty Start Date End Date Nicolas Greer MD #[address] [address] PCP - General Family Medicine 12/22/14 09/07/21 Nicolas Greer MD #[address] [address] PCP - General Family Medicine 09/08/21 Ariel Christiansen MD #[address] [address] Consulting Physician Cardiovascular Disease - Cardiology 07/19/16 [place] [address] [address] Automatic Folder Seamer Pulmonary Disease 06/18/20 Keny Saldaña APRN, INFECTION PREVENTIONIST #[address] [address] Nurse Practitioner Advanced Practice Nurse 09/08/21 Cristian Dewitt MD #[address] [address] Consulting Physician Cardiovascular Disease - Cardiology 10/06/21 02/07/24 Ale Spain, RN [place] Employment Instructional Associate 03/15/22 02/12/23 Ale Spain, RN [place] Nurse Employment Instructional Associate 03/15/22 02/13/23 Yamel Kurtz III, MD #2 [place] [address] Consulting Physician Urology 09/11/22 Raghu Green MD #2 [place] [address] Consulting Physician Pulmonary Disease 01/04/22 Warren Osborn MD #[address] [address] Consulting Physician Colon and Rectal Surgery 05/21/23 Ale Spain, [place] Nurse Employment Instructional Associate 09/05/23 Chetan Do MD #[address] [address] Consulting Physician Endocrinology 01/23/24 documented as of this encounter
--- OUTSIDE RECORDS SUMMARY | 2024-03-31 13:15 | XMS_ITS | Encounter Summary ---
Author Organization [facility] Address [address] [place] [address] [place] [address] Phone Care Team Providers Care Sales Agent Business Services Name Role Phone Nicolas Greer MD Primary Care Provider [phone] Ariel Christiansen MD Unavailable [phone] Parmjit Vogel MD Unavailable [phone] Nicolas Greer MD Primary Care Provider [phone] Keny Saldaña APRN, FOUNDATION RELATIONS DIRECTOR Unavailable Cristian Dewitt MD Unavailable Ale Black RN Unavailable Unavailable Ale Spain RN Unavailable Unavailable Jerardo MCCANN MD, Courtney Unavailable [phone] Raghu Green MD Unavailable Warren Osborn MD Unavailable Ale Spain RN Unavailable Unavailable Chetan Do MD Unavailable Reason for Visit * Reason Comments Medication Refill Encounter Details Date Type Department Care Team (Late st Contact Info) Description 08/26/2021 Refill [facility] #2 [place] [address] Nicolas Greer MD [facility] [address] [place] [address] Medication Refill Social History Tobacco Use Types [...] 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 on 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 Not [...] Nicolas Greer MD [facility] 04/28/21 Telemedicine Nicolsa Greer MD [facility] 12/20/20 [facility] - [place] #2 [facility] [place] [address] Chetan Do MD #2 [facility] [address] [place] [address] 08/14/2024 1:00 PM CDT [facility] - Pul[facility] & [facility] #2 [facility] [place] [address] Raghu Green MD #2 [facility] [place] [address] 09/17/2024 1:00 PM CDT Office Visit [facility] Medical Group - Family Medicine [facility] #2 [place] [address] Nicolas Greer MD #[address] [address] documented as of this encounter Visit Diagnoses Diagnosis Pulmonary emphysema, unspecified emphysema type (HCC) documented in this encounter Additional Health Concerns Infection Onset Date Last Indicated Resolved Time COVID - 19 09/02/2021 09/02/2021 09/03/2021 2:05 PM CDT COVID - 19 12/24/2021 12/24/2021 12/26/2021 8:07 AM POULTRY KILLER Respiratory Rule Out - RPA 12/24/2021 12/24/2021 1 02/24/2021 4:41 PM POULTRY KILLER Influenza 12/24/2021 12/24/2021 12/31/2021 12:1 6 AM POULTRY KILLER Assessment Noted Time PHQ-9 Depression Total Score: 0 02/12/19 10:45 AM POULTRY KILLER documented as of this encounter Care Teams Sales Agent Business Services Relationship Specialty Start Date End Date Nicolas Greer MD #[address] [address] PCP - General Family Medicine 12/22/14 09/07/21 Nicolas Greer MD #[address] [address] PCP - General Family Medicine 09/08/21 Ariel Christiansen MD #[address] [address] Consulting Physician Cardiovascular Disease - Cardiology 07/19/16 [place] [address] [address] Automatic Tire Tester Pulmonary Disease 06/18/20 Keny Saldaña APRN, FOUNDATION RELATIONS DIRECTOR #[address] [address] Nurse Practitioner Advanced Practice Nurse 09/08/21 Cristian Dewitt MD #[address] [address] Consulting Physician Cardiovascular Disease - Cardiology 10/06/21 02/07/24 Ale Spain, RN [place] Appellate Court Clerk 03/15/22 02/12/23 Ale Spain, RN [place] Nurse Appellate Court Clerk 03/15/22 02/13/23 Yamel Kurtz III, MD #2 [place] [address] Consulting Physician Urology 09/11/22 Raghu Green MD #2 [place] [address] Consulting Physician Pulmonary Disease 01/04/22 Warren Osborn MD #[address] [address] Consulting Physician Colon and Rectal Surgery 05/21/23 Ale Sapin, RN [place] Nurse Appellate Court Clerk 09/05/23 Chetan Do MD #[address] [address] Consulting Physician Endocrinology 01/23/24 documented as of this encounter
--- OUTSIDE RECORDS SUMMARY | 2024-03-31 13:15 | XMS_ITS | Encounter Summary ---
Author Organization [facility] Address [address] [place] [address] Phone Care Team Providers Care Carbon Rod Inserter Name Role Phone Ariel Christiansen MD Unavailable [phone] Parmjit Vogel MD Unavailable [phone] Nicolas Greer MD Primary Care Provider [phone] Keny Saldaña APRN, MARY Unavailable Cristian Dewitt MD Unavailable Kate Kurtz III, MD, Courtney Unavailable [phone] Raghu Green MD Unavailable Warren Osborn MD Unavailable Ale Spain RN Unavailable Unavailable Chetan Do MD Unavailable Reason for Visit * Reason Comments Medication Refill Encounter Details Date Type Department Care Team (Late st Contact Info) Description 05/28/2023 Refill [facility] #2 [place] [address] Nicolas Greer MD #[address] [address] Medication Refill Social History Tobacco Use Types Packs/Day Years Used Date Smoking Tobacco: Former Cigarettes 0.5 50 Smokeless Tobacco: Never Alcohol Use Standard Drinks/Week Comments No 0 (1 standard drink = 0.6 oz pur e alcohol) [facility] Utilities Answer Date Recorded In the [...] declined 04/04/2023 How often do you attend protestant or episcopal serv ices? Patient declined 04/04/2023 Do you belong to any clubs o r organizations such as protestant groups, unions, fraternal or athletic groups, or [...] Total Score - Questions 1-9 0 09/05 [facility] of Occupat ional Health - Occupational Stress [...] a fci (including now)? Patient declined 04/04/2023 Education Answer [...] Job Start Date Job End Date Retired [employer] Not on file Not on file Not [...] Medical Group - Endocrinology - [place] #2 [place] [address] Chetan Do MD #[address] [address] 08/14/2024 1:00 PM CDT Office Visit [facility] - Pulmonology & Sleep Medicine [facility] #2 [place] [address] Raghu Green MD #2 [place] [address] 09/17/2024 1:00 PM CDT Office Visit [facility] Family [facility] #2 [place] [address] Nicolas Greer MD #[address] [address] documented as of this encounter Visit Diagnoses Diagnosis Edema, unspecified type documented in this encounter Additional Health Concerns Assessment Noted Time PHQ-9 Depression Total Score: 0 09/22/19 23 1:48 PM CDT documented as of this encounter Care Teams Carbon Rod Inserter Relationship Specialty Start Date End Date Nicolas Greer MD #[address] [address] PCP - General Family Medicine 09/08/21 Ariel Christiansen MD Consulting Physician Cardiovascular Disease - Cardiology 07/19/16 [place] [address] [address] Statistical Engineer Pulmonary Disease 06/18/20 Keny Saldaña APRN, UNDERWRITING SALES REPRESENTATIVE #[address] [address] Nurse Practitioner Advanced Practice Nurse 09/08/21 Cristian Dewitt MD #[address] [address] Consulting Physician Cardiovascular Disease - Cardiology 10/06/21 02/07/24 Yamel Kurtz III, MD #2 [place] [address] Consulting Physician Urology 09/11/22 Rgahu Green MD #2 [place] [address] Consulting Physician Pulmonary Disease 01/04/22 Warren Osborn MD #[address] [address] Consulting Physician Colon and Rectal Surgery 05/21/23 Ale Spain, RN [place] Nurse Outdoor Adventure Guides 09/05/23 Chetan Do MD #[address] [address] Consulting Physician Endocrinology 01/23/24 documented as of this encounter
--- OUTSIDE RECORDS SUMMARY | 2024-03-31 13:15 | XMS_ITS ---
Author Organization [facility] Address [address] [address] Phone Care Team Providers Care Networks Computer Consultant Name Role Phone Ariel Christiansen MD Unavailable [phone] Parmjit Vogel MD Unavailable [phone] Nicolas Greer MD Primary Care Provider [phone] Keny Saldaña APRN, PROPERTIES SUPERVISOR Unavailable Jerardo MCCANN MD, Courtney Unavailable [phone] Raghu Green MD Unavailable Warren Osborn MD [...] Name Relationship Phone Ale Spain RN Nurse Dental Receptionist(Responsible Staff) Continued Care and Services Coordination
--- OUTSIDE RECORDS SUMMARY | 2024-03-31 13:15 | XMS_ITS | Encounter Summary ---
Author Organization [facility] Address [address] [place] [address] Phone Care Team Providers Care Manager Intensive Care Name Role Phone Ariel Christiansen MD Unavailable [phone] Parmjit Vogel MD Unavailable [phone] Nicolas Greer MD Primary Care Provider [phone] Keny Saldaña APRN, TOMBSTONE SETTER Unavailable Cristian Dewitt MD Unavailable Unaruslani Ale Richard RN Unavailable Unavailable Ale Spain RN Unavailable Unavailable Jerardo MCCANN MD, Courtney Unavailable [phone] Raghu Green MD Unavailable Warren Osborn MD Unavailable Ale Spain RN Unavailable Unavailable Chetan Do MD Unavailable Encounter Details Date Type Department Care Team (Late st Contact Info) Description 09/14/2021 [facility] [address] [place] [id number] Nicolas Greer MD #[address] [address] Hormone resistant malignancy status; Heart failure, unspecified [...] Job Start Date Job End Date Retired [employer] Not on file Not on file Not [...] Office Visit [facility] - Endocrinology - [place] #2 [place] [address] Chetan Do MD #[address] [address] 08/14/2024 1:00 PM CDT Office Visit [facility] - Pulmonology & Sleep Medicine [facility] #2 [place] [address] Raghu Green MD #2 [place] [address] 09/17/2024 1:00 PM CDT Office Visit [facility] - Family Medicine [facility] #[address] [place] [address] Nicolas Greer MD #[address] [address] documented as of this encounter Procedures Procedure [...] 12.00 10(3)/mcL 09/14/2021 3:38 PM CDT [facility] RBC 4.15 3.80 - 5.30 10(6)/mcL 09/14/2021 3:38 PM CDT [facility] HEMOGLOBIN (HGB) 12.7 12.0 - 15.8 g/dL 09/14/2021 3:38 PM CDT [facility] HEMATOCRIT (HCT) 42.3 36.0 - 47.0 % 09/14/2021 3:38 PM CDT [facility] MCV 101.9(H) 82.0 - 96.0 fL 09/14/2021 3:38 PM CDT [facility] MCH 30.6 26.0 - 34.0 pg 09/14/2021 3:38 PM CDT [facility] MCHC 30.0(L) 31.0 - 36.0 g/dL 09/14/2021 3:38 PM CDT [facility] PLATELET COUNT 289 140 - 440 10(3)/mcL 09/14/2021 3:38 PM CDT [facility] RDW 13.1 11.8 - 15.5 % 09/14/2021 3:38 PM CDT [facility] MPV 10.5 9.7 - 12.4 fL 09/14/2021 3:38 PM CDT [facility] NEUTROPHILS 77.0(H) 47.0 - 73.0 % 09/14/2021 3:38 PM CDT [facility] LYMPHOCYTES 14.9(L) 18.0 - 42.0 % 09/14/2021 3:38 PM CDT [facility] MONOCYTES 6.2 4.0 - 12.0 % 09/14/2021 3:38 PM CDT [facility] EOSINOPHILS 1.3 0.0 - 5.0 % 09/14/2021 3:38 PM CDT [facility] BASOPHILS 0.6 0.0 - 1.0 % 09/14/2021 3:38 PM CDT [facility] ABSOLUTE NEUTROPHILS 6.72 1.60 - 7.70 10(3)/mcL 09/14/2021 3:38 PM CDT [facility] ABSOLUTE LYMPHOCYTES 1.30 1.30 - 3.20 10(3)/mcL 09/14/2021 3:38 PM CDT [facility] ABSOLUTE MONOCYTES 0.54 0.20 - 1.00 10(3)/[facility] 09/14/2021 3:38 PM CDT [facility] ABSOLUTE EOSINOPHIL 0.11 0.00 - 0.40 10(3)/mcL 09/14/2021 3:38 PM CDT [facility] ABSOLUTE BASOPHILS 0.05 0.00 - 0.10 10(3)/[facility] 09/14/2021 3:38 PM CDT [facility] NRBC PER 100 WBC 0 09/15/19 3:38 PM CDT [facility] Blood No Phlebotomy Charged / Unknown 09/14/2021 2:30 PM CDT 09/14/2021 3:33 PM CDT Nicolas Greer MD HEMATOLOGY ORDERABLES Final Result Performing Organization Address City/[facility]/ZIP Co de Phone Number [facility] #1 [place] [address] * (ABNORMAL) MAGNESIUM (MG) (09/14/2021 2:30 PM CDT) Pathologist [facility] MAGNESIUM 1.7(L) 1.8 - 2.5 mg/dL 09/14/2021 4:01 PM CDT [facility] Blood No Phlebotomy Charged / Unknown 09/14/2021 2:30 PM CDT 09/14/2021 3:33 PM CDT Nicolas Greer MD CHEMISTRY ORDERABLES Final Result Performing Organization Address City/[facility]/ZIP Co de Phone Number [facility] #[address] [place] [address] * PHOSPHORUS (PO4) (09/14/2021 2:30 PM CDT) PHOSPHORUS 2.9 2.4 - 4.7 mg/dL 09/14/2021 4:01 PM CDT [facility] Blood No Phlebotomy Charged / Unknown 09/14/2021 2:30 PM CDT 09/14/2021 3:33 PM CDT Nicolas Greer MD CHEMISTRY ORDERABLES Final Result [facility] #[address] [place] [address] * (ABNORMAL) BASIC METABOLIC PANEL W/ CALCIUM TOTAL (09/14/2021 2:30 PM CDT) SODIUM 142 136 - 144 mmol/L 09/14/2021 4:01 PM CDT [facility] POTASSIUM 3.8 3.5 - 5.1 mmol/L 09/14/2021 4:01 PM CDT [facility] CHLORIDE 98(L) 100 - 110 mmol/L 09/14/2021 4:01 PM CDT [facility] CO2, VENOUS 38(H) 22 - 32 mmol/L 09/14/2021 4:01 PM CDT [facility] ANION GAP 9.8 8.0 - 20.0 mmol/L 09/14/2021 4:01 PM CDT [facility] GLUCOSE 110(H) 70 - 99 mg/dL 09/14/2021 4:01 PM CDT [facility] BUN 25(H) 8 - 23 mg/dL 09/14/2021 4:01 PM CDT [facility] CREATININE, BLOOD 0.96 0.60 - 1.10 mg/dL 09/14/2021 4:01 PM CDT [facility] BUN/CREATININE RATIO 26(H) 12 - 20 ratio 09/14/2021 4:01 PM CDT [facility] CALCIUM 11.0(H) 8.9 - 10.3 mg/dL 09/14/2021 4:01 PM CDT [facility] GFR, ESTIMATED >60 >=60 09/14/2021 4:01 PM CDT [facility] Comment: Creatinine Clearance is the preferred criteria for selecting drug dose adjustments in renally impaired patients. The GFR is provided as additional pertinent clinical information. GFR is reported in mL/min/1.73 sq m. Blood No Phlebotomy Charged / Unknown 09/14/2021 2:30 PM CDT 09/14/2021 3:33 PM CDT Nicolas Greer MD CHEMISTRY ORDERABLES Final Result [facility] [address] [place] [address] documented in this encounter Visit Diagnoses Diagnosis [...] - 19 12/24/2021 12/24/2021 12/26/2021 8:07 AM BUSINESS DEVELOPMENT REPRESENTATIVE Respiratory Rule Out - RPA 12/24/2021 12/24/2021 1 02/24/2021 4:41 PM BUSINESS DEVELOPMENT REPRESENTATIVE Influenza 12/24/2021 12/24/2021 12/31/2021 12:1 6 AM BUSINESS DEVELOPMENT REPRESENTATIVE Assessment Noted Time PHQ-9 Depression Total Score: 0 02/12/19 20 10:45 AM BUSINESS DEVELOPMENT REPRESENTATIVE documented as of this encounter Care Teams Manager Intensive Care Relationship Specialty Start Date End Date Nicolas Greer MD #[address] [address] PCP - General Family Medicine 09/08/21 Ariel Christiansen MD Consulting Physician Cardiovascular Disease - Cardiology 07/19/16 [place] [address] [facility] [address] [place] [address] Roller Skates Assembler Pulmonary Disease 06/18/20 Keny Saldaña APRN, TOMBSTONE SETTER #[address] [address] Nurse Practitioner Advanced Practice Nurse 09/08/21 Cristian Dewitt MD #[address] [address] Consulting Physician Cardiovascular Disease - Cardiology 10/06/21 02/07/24 Ale Spain, RN [place] Panel Edge Painter 03/15/22 02/12/23 Ale Spain, RN [place] Nurse Panel Edge Painter 03/15/22 02/13/23 Yamel Kurtz III, MD #2 [place] [address] Consulting Physician Urology 09/11/22 Raghu Green MD #2 [place] [address] Consulting Physician Pulmonary Disease 01/04/22 Warren Osborn MD #[address] [address] Consulting Physician Colon and Rectal Surgery 05/21/23 Ale Spain, RN [place] Nurse Panel Edge Painter 09/05/23 Chetan Do MD #[address] [phone] Consulting Physician Endocrinology 01/23/24 documented as of this encounter
--- OUTSIDE RECORDS SUMMARY | 2024-03-31 13:15 | XMS_ITS | Encounter Summary ---
Author Organization [facility] Address [address] [place] [address] Phone Care Team Providers Care Crown Wheel Assembler Name Role Phone Ariel Christiansen MD Unavailable [phone] Parmjit Vogel MD Unavailable [phone] Nicolas Greer MD Primary Care Provider [phone] Keny Saldaña APRN, IRRIGATOR SPRINKLING SYSTEM Unavailable Cristian Dewitt MD Unavailable Ale Black RN Unavailable Unavailable Ale Spain RN Unavailable Unavailable Jerardo MCCANN MD, Courtney Unavailable [phone] Raghu Green MD Unavailable Warren Osborn MD Unavailable Ale Spain RN Unavailable Unavailable Chetan Do MD Unavailable Reason for Visit * Reason Comments Medication Refill Encounter Details Date Type Department Care Team (Late st Contact Info) Description 10/20/2022 Refill [facility] #2 [place] [address] Nicolas Greer MD #[address] [address] Medication Refill Social History Tobacco Use Types [...] Job Start Date Job End Date Retired [employer] Not on file Not on file Not [...] [place] 01/09/22 Telemedicine Keny Saldaña APRN, CNP [facility] [place] 12/19/21 Office Visit Nicolas Greer MD [...] [facility] 01/09/22 Telemedicine Keny Saldaña APRN, IRRIGATOR SPRINKLING SYSTEM [facility] [place] 12/19/21 Office Visit Nicolas Greer MD [facility] [...] Description 04/24/2024 2:00 PM CDT Office Visit [facility] Medical [facility] - Endocrinology - [place] #2 [place] [address] Chetan Do MD #2 [facility] [address] [place] [address] 08/14/2024 1:00 PM CDT Office Visit [facility] Medical [facility] - Pulmonology & Sleep Medicine - [place] #2 [place] [address] Raghu Green MD #2 [place] [address] 09/17/2024 1:00 PM CDT Office Visit [facility] Medical [facility] - Family Medicine - [place] #2 [place] [address] Nicolas Greer MD #2 [facility] [address] [place] [address] documented as of this encounter Visit Diagnoses Diagnosis Depression with anxiety Dysthymic disorder documented in this encounter Additional Health Concerns Assessment Noted Time PHQ-9 Depression Total Score: 0 09/22/19 23 1:48 PM CDT documented as of this encounter Care Teams Crown Wheel Assembler Relationship Specialty Start Date End Date Nicolas Greer MD #2 [facility] [address] [place] [address] PCP - General Family Medicine 09/08/21 Ariel Christiansen MD Consulting Physician Cardiovascular Disease - Cardiology 07/19/16 [place] [address] [address] Quality Reviewer Pulmonary Disease 06/18/20 Keny Saldaña, FINAL INSPECTOR SHUTTLE, IRRIGATOR SPRINKLING SYSTEM #[address] [address] Nurse Practitioner Advanced Practice Nurse 09/08/21 Cristian Dewitt MD #[address] [address] Consulting Physician Cardiovascular Disease - Cardiology 10/06/21 02/07/24 Ale Spain, RN [place] Installer Inspector Final 03/15/22 02/12/23 Ale [place], RN [place] Nurse Installer Inspector Final 03/15/22 02/13/23 Yamel Kurtz III, MD #2 [place] [address] Consulting Physician Urology 09/11/22 Raghu Green MD #2 [place] [address] Consulting Physician Pulmonary Disease 01/04/22 Warren Osborn MD #[address] [address] Consulting Physician Colon and Rectal Surgery 05/21/23 Ale Spain, RN [place] Nurse Installer Inspector Final 09/05/23 Chetan Do MD #[address] [place] [address] Consulting Physician Endocrinology 01/23/24 documented as of this encounter
--- OUTSIDE RECORDS SUMMARY | 2024-03-31 13:15 | XMS_ITS | Encounter Summary ---
Author Organization [facility] Address [address] [place] [address] Phone Care Team Providers Care Lawnmower Repair Mechanic Name Role Phone Nicolas Greer MD Primary Care Provider [phone] Ariel Christiansen MD Unavailable [phone] Parmjit Vogel MD Unavailable [phone] Nicolas Greer MD Primary Care Provider [phone] Keny Saldaña APRN, MALL MANAGER Unavailable Cristian Dewitt MD Unavailable Ale Black RN Unavailable Unavailable Ale Spain RN Unavailable Unavailable Jerardo MCCANN MD, Courtney Unavailable [phone] Raghu Green MD Unavailable Warren Osborn MD Unavailable Ale Spain RN Unavailable Unavailable Chetan Do MD Unavailable Reason for Visit * Reason Comments Medication Refill Encounter Details Date Type Department Care Team (Late st Contact Info) Description 05/12/2020 Refill [facility] - Family [facility] #2 [place] [address] Nicolas Greer MD #2 [facility] [address] [place] [address] Medication Refill Social History Tobacco Use Types [...] Job Start Date Job End Date Retired [employer] Not on file Not on file Not [...] - Family Medicine - Keny Crowder APN, MALL MANAGER 11 months ago Ptosis of both eyelids [facility] - Family [facility] - Keny Crowder APN, MALL MANAGER 1 year ago Hypothyroidism, unspecified type [facility] [place] [facility] [place] MD Upcoming Appointments Future Appointments In 3 weeks Nicolas Greer MD [facility] - Recent and Past Visits Recent Visits Date Type Provider Dept 03/11/20 Office Visit Nicolas Greer MD [facility] 10/14/19 Office Visit Nicolas Greer MD [facility] 07/14/19 Office Visit Keny Saldaña APN, CNP [facility] 05/22/19 Telemedicine Keny Saldaña APN, CNP [facility] 02/12/19 Office Visit Nicolas Greer MD [...] obstructive pulmonary disease, unspecified COPD type (HCC) [facility] Nicolas [place] MD 7 months ago Hyperlipidemia, unspecified hyperlipidemia type [facility] Nicolas [place] MD 10 months ago Pulmonary emphysema, unspecified emphysema type (HCC) [facility] Keny Crowder APN, MARY 11 months ago Ptosis of both eyelids [facility] Keny Crowder APN, MARY 1 year ago Hypothyroidism, unspecified type [facility] Nicolas [place] MD Upcoming Appointments Future Appointments In 3 weeks Nicolas Greer MD [facility], [facility] TRIMMER SORTER - Recent and Past Visits Recent Visits Date Type Provider Dept 03/11/20 Office Visit Nicolas Greer MD [facility] 10/14/19 Office Visit Nicolas Greer MD [facility] 07/14/19 Office Visit Keny Saldaña APN, MALL MANAGER [facility] 05/22/19 Telemedicine Keny Saldaña APN, MALL MANAGER [facility] 02/12/19 Office Visit Nicolas Greer MD [facility] [...] Description 04/24/2024 2:00 PM CDT Office Visit [facility] - Endocrinology - [place] #2 [place] [address] Chetan Do MD #[address] [address] 08/14/2024 1:00 PM CDT Office Visit [facility] Medical [facility] - Pulmonology & Sleep Medicine - [place] #2 [place] [address] Raghu Green MD #2 [place] [address] 09/17/2024 1:00 PM CDT Office Visit [facility] Family Medicine - [place] #2 [place] [address] Nicolas Greer MD #[address] [address] documented as of this encounter Visit Diagnoses Diagnosis Pulmonary emphysema, unspecified emphysema type (HCC) documented in this encounter Additional Health Concerns Infection Onset Date Last Indicated Resolved Time COVID - 19 09/02/2021 09/02/2021 09/03/2021 2:05 PM CDT COVID - 19 12/24/2021 12/24/2021 12/26/2021 8:07 AM RETAIL SALES MANAGER Respiratory Rule Out - RPA 12/24/2021 12/24/2021 1 02/24/2021 4:41 PM RETAIL SALES MANAGER Influenza 12/24/2021 12/24/2021 12/31/2021 12:1 6 AM RETAIL SALES MANAGER Assessment Noted Time PHQ-9 Depression Total Score: 0 02/12/19 10:45 AM RETAIL SALES MANAGER documented as of this encounter Care Teams Lawnmower Repair Mechanic Relationship Specialty Start Date End Date Nicolas Greer MD #[address] [address] PCP - General Family Medicine 12/22/14 09/07/21 Nicolas Greer MD #[address] [address] PCP - General Family Medicine 09/08/21 Ariel Christiansen MD #[address] [address] Consulting Physician Cardiovascular Disease - Cardiology 07/19/16 [place] [address] [address] Hospital Social Worker Pulmonary Disease 06/18/20 Keny Saldaña APRN, MALL MANAGER #[address] [address] Nurse Practitioner Advanced Practice Nurse 09/08/21 Cristian Dewitt MD #[address] [address] Consulting Physician Cardiovascular Disease - Cardiology 10/06/21 02/07/24 Ale Spain, RN [place] Buttonhole Facer 03/15/22 02/12/23 Ale [place], RN [place] Nurse Buttonhole Facer 03/15/22 02/13/23 Yamel Kurtz III, MD #2 [place] [address] Consulting Physician Urology 09/11/22 Raghu Green MD #2 [place] [address] Consulting Physician Pulmonary Disease 01/04/22 Warren Osborn MD #[address] [address] Consulting Physician Colon and Rectal Surgery 05/21/23 Ale [place], RN [place] Nurse Buttonhole Facer 09/05/23 Chetan Do MD #[address] [address] Consulting Physician Endocrinology 01/23/24 documented as of this encounter
--- OUTSIDE RECORDS SUMMARY | 2024-03-31 13:15 | XMS_ITS | Encounter Summary ---
Author Organization [facility] Address [address] [place] [address] Phone Care Team Providers Care Software Build Engineer Name Role Phone Ariel Christiansen MD Unavailable [phone] Parmjit Vogel MD Unavailable [phone] Nicolas Greer MD Primary Care Provider [phone] Keny Saldaña APRN, TONGSMAN Unavailable Cristian Dewitt MD Unavailable Unaruslani Ale Richard RN Unavailable Unavailable Ale Spain RN Unavailable Unavailable Jerardo MCCANN MD, Courtney Unavailable [phone] Raghu Green MD Unavailable Warren Osborn MD Unavailable Ale Spain RN Unavailable Unavailable Chetan Do MD Unavailable Encounter Details Date Type Department Care Team (Late st Contact Info) Description 02/15/2022 [facility] [address] [place] [id number] Nicolas Greer MD #[address] [address] Anemia, unspecified Social History Tobacco Use Types [...] Job Start Date Job End Date Retired [employer] Not on file Not on file Not on file COVID-19 Exposure Response Date Recorded In the last 10 days, have yo u been in contact with someone who was confirmed or suspected to have Coronavirus/COVID-19? No / Unsure 02/15/2022 10:32 AM SLITTING MACHINE OPERATOR documented as of this encounter Plan of Treatment Upcoming Encounters Date Type Department Care Team (Late st Contact Info) Description 04/24/2024 2:00 PM CDT Office Visit [facility] - Endocrinology - [place] #2 [place] [address] Chetan Do MD #[address] [address] 08/14/2024 1:00 PM CDT Office Visit [facility] - Pulmonology & Sleep Medicine [facility] #2 [place] [address] Raghu Green MD #2 [place] [address] 09/17/2024 1:00 PM CDT [facility] - Family Medicine - [place] #2 [place] [address] Nicolas Greer MD [address] [address] documented as of this encounter Procedures Procedure Name Priority Date/Time Associated Diagnosis Comments CBC WITH AUTO DIFFERENTIAL Routine 02/15/2022 11:02 AM SLITTING MACHINE OPERATOR Anemia, unspecified COMPLETE BLOOD COUNT (CBC) WITH DIFF Routine 02/15/2022 11:02 AM SLITTING MACHINE OPERATOR Anemia, unspecified documented in this encounter Results * (ABNORMAL) CBC WITH AUTO DIFFERENTIAL (02/15/2022 11:02 AM SLITTING MACHINE OPERATOR) WBC 6.92 4.00 - 12.00 10(3)/mcL 02/15/2022 1:16 PM [facility] RBC 3.85 3.80 - 5.30 10(6)/mcL 02/15/2022 1:16 PM [facility] HEMOGLOBIN (HGB) 11.9(L) 12.0 - 15.8 g/dL 02/15/2022 1:16 PM [facility] HEMATOCRIT (HCT) 38.3 36.0 - 47.0 % 02/15/2022 1:16 PM [facility] MCV 99.5(H) 82.0 - 96.0 fL 02/15/2022 1:16 PM [facility] MCH 30.9 26.0 - 34.0 pg 02/15/2022 1:16 PM [facility] MCHC 31.1 31.0 - 36.0 g/dL 02/15/2022 1:16 PM [facility] PLATELET COUNT 427 140 - 440 10(3)/mcL 02/15/2022 1:16 PM [facility] RDW 13.8 11.8 - 15.5 % 02/15/2022 1:16 PM [facility] MPV 9.6(L) 9.7 - 12.4 fL 02/15/2022 1:16 PM [facility] NEUTROPHILS 78.3(H) 47.0 - 73.0 % 02/15/2022 1:16 PM [facility] LYMPHOCYTES 13.6(L) 18.0 - 42.0 % 02/15/2022 1:16 PM [facility] MONOCYTES 6.6 4.0 - 12.0 % 02/15/2022 1:16 PM [facility] EOSINOPHILS 0.9 0.0 - 5.0 % 02/15/2022 1:16 PM [facility] BASOPHILS 0.6 0.0 - 1.0 % 02/15/2022 1:16 PM [facility] ABSOLUTE NEUTROPHILS 5.42 1.60 - 7.70 10(3)/[facility] 02/15/2022 1:16 PM [facility] ABSOLUTE LYMPHOCYTES 0.94(L) 1.30 - 3.20 10(3)/[facility] 02/15/2022 1:16 PM [facility] ABSOLUTE MONOCYTES 0.46 0.20 - 1.00 10(3)/[facility] 02/15/2022 1:16 PM [facility] ABSOLUTE EOSINOPHIL 0.06 0.00 - 0.40 10(3)/[facility] 02/15/2022 1:16 PM [facility] ABSOLUTE BASOPHILS 0.04 0.00 - 0.10 10(3)/[facility] 02/15/2022 1:16 PM [facility] NRBC PER 100 WBC 0 02/15/19 23 1:16 PM [facility] Blood No Phlebotomy Charged / Unknown 02/15/2022 11:02 AM SLITTING MACHINE OPERATOR 02/15/2022 1:12 PM SLITTING MACHINE OPERATOR us Nicolas Greer MD HEMATOLOGY ORDERABLES Final Result [facility] #1 [place] [address] documented in this encounter Visit Diagnoses Diagnosis Anemia, unspecified documented in this encounter Additional Health Concerns Assessment Noted Time PHQ-9 Depression Total Score: 0 02/12/19 20 10:45 AM SLITTING MACHINE OPERATOR documented as of this encounter Care Teams Software Build Engineer Relationship Specialty Start Date End Date Nicolas Greer MD #[address] [address] PCP - General Family Medicine 09/08/21 Ariel Christiansen MD Consulting Physician Cardiovascular Disease - Cardiology 07/19/16 [place] [id number] [address] Vice President Mission Integration Pulmonary Disease 06/18/20 Keny Saldaña APRN, TONGSMAN #[address] [address] Nurse Practitioner Advanced Practice Nurse 09/08/21 Cristian Dewitt MD #[address] [address] Consulting Physician Cardiovascular Disease - Cardiology 10/06/21 02/07/24 Ale Spain, RN [place] General Dentist/Owner 03/15/22 02/12/23 Ale Spain, RN [place] Nurse General Dentist/Owner 03/15/22 02/13/23 Yamel Kurtz III, MD #2 [place] [address] Consulting Physician Urology 09/11/22 Raghu Green MD #2 [place] [address] Consulting Physician Pulmonary Disease 01/04/22 Warren Osborn MD #[address] [address] Consulting Physician Colon and Rectal Surgery 05/21/23 Ale Spain RN [place] Nurse General Dentist/Owner 09/05/23 Chetan Do MD #[address] [address] Consulting Physician Endocrinology 01/23/24 documented as of this encounter
--- OUTSIDE RECORDS SUMMARY | 2024-03-31 13:15 | XMS_ITS | Encounter Summary ---
Author Organization [facility] Address [address] [place] [address] Phone Care Team Providers Care Clearance Diver Name Role Phone Nicolas Greer MD Primary Care Provider [phone] Ariel Christiansen MD Unavailable [phone] Parmjit Vogel MD Unavailable [phone] Nicolas Greer MD Primary Care Provider [phone] Keny Saldaña APRN, EARTHMOVING LABOURER Unavailable Cristian Dewitt MD Unavailable Ale Black RN Unavailable Unavailable Ale Spain RN Unavailable Unavailable Jerardo MCCANN MD, Courtney Unavailable [phone] Raghu Green MD Unavailable Warren Osborn MD Unavailable Ale Spain RN Unavailable Unavailable Chetan Do MD Unavailable Reason for Visit * Reason Comments Medication Refill Encounter Details Date Type Department Care Team (Late st Contact Info) Description 11/10/2019 Refill [facility] #2 [place] [address] Keny Saldaña APRN, EARTHMOVING LABOURER #[address] [address] Medication Refill Social History Tobacco Use Types [...] Job Start Date Job End Date Retired [employer] Not on file Not on file Not [...] - Family Medicine - Keny Crowder APN, EARTHMOVING LABOURER 5 months ago Ptosis of both eyelids [facility] - Family Medicine - Keny Crowder APN, EARTHMOVING LABOURER 9 months ago Hypothyroidism, unspecified type [facility] Family [facility] - Nicolas Waters MD 1 year ago Non-insulin dependent type 2 diabetes mellitus (HCC) [facility] Family [facility] - Nicolas Waters MD Upcoming Appointments PAY STATION DEPARTMENT MANAGER - Recent and Past Visits Recent Visits Date Type Provider Dept 10/14/19 Office Visit Nicolas Greer MD [facility] 07/14/19 Office Visit Keny Saldaña APN, EARTHMOVING LABOURER [facility] 05/22/19 Telemedicine Keny Saldaña APN, EARTHMOVING LABOURER [facility] 02/12/19 Office Visit Nicolas Greer MD [facility] 11/05/18 Office Visit Nicolas Greer MD [facility] Showing recent visits within past 460 [...] PM CDT Office Visit [facility] Medical [facility] - Endocrinology - [place] #2 [place] [address] Chetan Do MD #[address] [address] 08/14/2024 1:00 PM CDT Office Visit [facility] Medical [facility] - Pulmonology & Sleep Medicine - [place] #2 [place] [address] Raghu Green MD #2 [place] [address] 09/17/2024 1:00 PM CDT Office Visit [facility] - [facility] #2 [place] [address] Nicolas Greer MD #[address] [address] documented as of this encounter Visit Diagnoses Diagnosis Pulmonary emphysema, unspecified emphysema type (HCC) documented in this encounter Additional Health Concerns Infection Onset Date Last Indicated Resolved Time COVID - 19 03/11/2020 03/11/2020 03/31/2020 12:1 8 AM GENERAL CLAIMS AGENT COVID - 19 09/02/2021 09/02/2021 09/03/2021 2:05 PM CDT COVID - 19 12/24/2021 12/24/2021 12/26/2021 8:07 AM GENERAL CLAIMS AGENT Respiratory Rule Out - RPA 12/24/2021 12/24/2021 1 02/24/2021 4:41 PM GENERAL CLAIMS AGENT Influenza 12/24/2021 12/24/2021 12/31/2021 12:1 6 AM GENERAL CLAIMS AGENT Assessment Noted Time PHQ-9 Depression Total Score: 0 02/12/19 10:45 AM GENERAL CLAIMS AGENT documented as of this encounter Care Teams Clearance Diver Relationship Specialty Start Date End Date Nicolas Greer MD #[address] [address] PCP - General Family Medicine 12/22/14 09/07/21 Nicolas Greer MD #[address] [address] PCP - General Family Medicine 09/08/21 Ariel Christiansen MD #[address] [address] Consulting Physician Cardiovascular Disease - Cardiology 07/19/16 [place] [address] [facility] [address] [place] [address] First Aid Trainer Pulmonary Disease 06/18/20 Keny Saldaña APRN, EARTHMOVING LABOURER #[address] [address] Nurse Practitioner Advanced Practice Nurse 09/08/21 Cristian Dewitt MD #[address] [address] Consulting Physician Cardiovascular Disease - Cardiology 10/06/21 02/07/24 Ael Spain, RN [place] Lead Pastor 03/15/22 02/12/23 Ale Spain, RN [place] Nurse Lead Pastor 03/15/22 02/13/23 Yamel Kurtz III, MD #2 [place] [address] Consulting Physician Urology 09/11/22 Raghu Green MD #2 [place] [address] Consulting Physician Pulmonary Disease 01/04/22 Warren Osborn MD #[address] [address] Consulting Physician Colon and Rectal Surgery 05/21/23 Ale Spain, RN [place] Nurse Lead Pastor 09/05/23 Chetan Do MD #[address] [phone] Consulting Physician Endocrinology 01/23/24 documented as of this encounter
--- OUTSIDE RECORDS SUMMARY | 2024-03-31 13:15 | XMS_ITS | Encounter Summary ---
Author Organization [facility] Address [address] [place] [address] [place] [address] Phone Care Team Providers Care Horse Rancher Name Role Phone Ariel Christiansen MD Unavailable [phone] Parmjit Vogel MD Unavailable [phone] Nicolas Greer MD Primary Care Provider [phone] Keny Saldaña APRN, MARY Unavailable Cristian Dewitt MD Unavailable Kate Kurtz III, MD, Courtney Unavailable [phone] Raghu Green MD Unavailable Warren Osborn MD Unavailable Ale Spain RN Unavailable Unavailable Chetan Do MD Unavailable Reason for Visit * Reason Comments Medication Refill Encounter Details Date Type Department Care Team (Late st Contact Info) Description 02/28/2023 Refill [facility] #2 [place] [address] Nicolas Greer MD #[address] [address] Medication Refill Social History Tobacco Use Types [...] Industry Job Start Date Job End Date Re[employer] Not on file Not on file Not on file documented as of this encounter Plan of Treatment Upcoming Encounters Date Type Department Care Team (Late st Contact Info) Description 04/24/2024 2:00 PM CDT Office Visit [facility] - Endocrinology [facility] #2 [place] [address] Chetan Do MD #[address] [address] 08/14/2024 1:00 PM CDT Office Visit [facility] - Pulmonology & Sleep Medicine [facility] #2 [place] [address] Raghu Green MD #2 [place] [address] 09/17/2024 1:00 PM CDT Office Visit [facility] - Family Medicine [facility] #2 [place] [address] Nicolas Greer MD #[address] [address] documented as of this encounter Visit Diagnoses Not on filedocumented in this encounter Additional Health Concerns Assessment Noted Time PHQ-9 Depression Total Score: 0 09/22/19 23 1:48 PM CDT documented as of this encounter Care Teams Horse Rancher Relationship Specialty Start Date End Date Nicolas Greer MD #[address] [address] PCP - General Family Medicine 09/08/21 Ariel Christiansen MD Consulting Physician Cardiovascular Disease - Cardiology 07/19/16 [place] [address] [address] Computer Numerical Control Programmer Pulmonary Disease 06/18/20 Keny Saldaña APRN, HEEL SLUGGER #[address] [address] Nurse Practitioner Advanced Practice Nurse 09/08/21 Cristian Dewitt MD #[address] [address] Consulting Physician Cardiovascular Disease - Cardiology 10/06/21 02/07/24 Yamel Kurtz III, MD #2 [place] [address] Consulting Physician Urology 09/11/22 Rgahu Green MD #2 [place] [address] Consulting Physician Pulmonary Disease 01/04/22 Warren Osborn MD #[address] [address] Consulting Physician Colon and Rectal Surgery 05/21/23 Ale Spain, [place] Nurse Webmethods Architect 09/05/23 Chetan Do MD #[address] [address] Consulting Physician Endocrinology 01/23/24 documented as of this encounter
--- OUTSIDE RECORDS SUMMARY | 2024-03-31 13:15 | XMS_ITS | Encounter Summary ---
Author Organization [facility] Address [address] [place] [address] Phone Care Team Providers Care Electromechanical Assembler Name Role Phone Nicolas Greer MD Primary Care Provider [phone] Ariel Christiansen MD Unavailable [phone] Parmjit Vogel MD Unavailable [phone] Nicolas Greer MD Primary Care Provider [phone] Keny Saldaña APRN, ELECTRICIAN SOUND Unavailable Cristian Dewitt MD Unavailable Ale Black RN Unavailable Unavailable Ale Spain RN Unavailable Unavailable Jerardo MCCANN MD, Courtney Unavailable [phone] Raghu Green MD Unavailable Warren Osborn MD Unavailable Ale Spain RN Unavailable Unavailable Chetan Do MD Unavailable Reason for Visit * Reason Comments Medication Refill Encounter Details Date Type Department Care Team (Late st Contact Info) Description 06/03/2021 Refill [facility] #2 [place] [address] Nicolas Greer MD #[address] [address] Medication Refill Social History Tobacco Use Types [...] Job Start Date Job End Date Retired [employer] Not on file Not on file Not [...] Description 04/24/2024 2:00 PM CDT Office Visit [facility] Medical [facility] - Endocrinology - [place] #2 [place] [address] Chetan Do MD #[address] [address] 08/14/2024 1:00 PM CDT Office Visit [facility] Medical [facility] - Pulmonology & Sleep Medicine - [place] #2 [place] [address] Raghu Green MD #2 [place] [address] 09/17/2024 1:00 PM CDT Office Visit [facility] Medical [facility] - Family Medicine - [place] #2 [place] [address] Nicolas Greer MD #[address] [address] documented as of this encounter Visit Diagnoses Diagnosis Depression with anxiety Dysthymic disorder Pulmonary emphysema, unspecified emphysema type (HCC) documented in this encounter Additional Health Concerns Infection Onset Date Last Indicated Resolved Time COVID - 19 09/02/2021 09/02/2021 09/03/2021 2:05 PM CDT COVID - 19 12/24/2021 12/24/2021 12/26/2021 8:07 AM EVENT MARKETING COORDINATOR Respiratory Rule Out - RPA 12/24/2021 12/24/2021 1 02/24/2021 4:41 PM EVENT MARKETING COORDINATOR Influenza 12/24/2021 12/24/2021 12/31/2021 12:1 6 AM EVENT MARKETING COORDINATOR Assessment Noted Time PHQ-9 Depression Total Score: 0 02/12/19 10:45 AM EVENT MARKETING COORDINATOR documented as of this encounter Care Teams Electromechanical Assembler Relationship Specialty Start Date End Date Nicolas Greer MD #[address] [address] PCP - General Family Medicine 12/22/14 09/07/21 Nicolas Greer MD #[address] [address] PCP - General Family Medicine 09/08/21 Ariel Christiansen MD #[address] [address] Consulting Physician Cardiovascular Disease - Cardiology 07/19/16 [place] [address] [address] Cake Knocker Pulmonary Disease 06/18/20 Keny Saldaña, CALENDER TENDER, ELECTRICIAN SOUND #[address] [address] Nurse Practitioner Advanced Practice Nurse 09/08/21 Cristian Dewitt MD #2 [facility] [address] [place] [address] Consulting Physician Cardiovascular Disease - Cardiology 10/06/21 02/07/24 Ale Spain, RN [place] Program Counselor 03/15/22 02/12/23 Ale Spain, RN [place] Nurse Program Counselor 03/15/22 02/13/23 Yamel Kurtz III, MD #2 [place] [address] Consulting Physician Urology 09/11/22 Raghu Green MD #2 [place] [address] Consulting Physician Pulmonary Disease 01/04/22 Warren Osborn MD #[address] [address] Consulting Physician Colon and Rectal Surgery 05/21/23 Ale Spain, RN [place] Nurse Program Counselor 09/05/23 Chetan Do MD #[address] [address] Consulting Physician Endocrinology 01/23/24 documented as of this encounter
--- OUTSIDE RECORDS SUMMARY | 2024-03-31 13:15 | XMS_ITS | Encounter Summary ---
Author Organization [facility] Address [address] [place] [address] Phone Care Team Providers Care Trimmer Sorter Name Role Phone Ariel Christiansen MD Unavailable [phone] Parmjit Vogel MD Unavailable [phone] Nicolas Greer MD Primary Care Provider [phone] Keny Saldaña APRN, CLIENT MANAGER LARGE LAW Unavailable Cristian Dewitt MD Unavailable Ale Black RN Unavailable Unavailable Ale Spain RN Unavailable Unavailable Jerardo MCCANN MD, Courtney Unavailable [phone] Raghu Green MD Unavailable Warren Osborn MD Unavailable Ale Spain RN Unavailable Unavailable Chetan Do MD Unavailable Reason for Visit * Reason Comments Medication Refill Encounter Details Date Type Department Care Team (Late st Contact Info) Description 01/24/2023 Refill [facility] #2 [place] [address] Nicolas Greer MD #[address] [address] Medication Refill Social History Tobacco Use Types [...] Job Start Date Job End Date Retired [employer] Not on file Not on file Not [...] Med Name: ALBUTEROL HFA 90 MCG INHALER (MO] 18 g 1 Sig: INHALE TWO PUFFS [...] [facility] 02/13/22 Telemedicine Nicolas Greer MD [facility] Showing recent visits within past 365 days and meeting all other requirements Future Appointments Date Type Provider Dept 04/04/23 Appointment Nicolas Greer MD [facility] Showing future appointments within next 90 days and meeting all other requirements NCIAL REP documented in this encounter Plan of Treatment Upcoming Encounters Date Type Department Care Team (Late st Contact Info) Description 04/24/2024 2:00 PM CDT Office Visit [facility] Medical [facility] - Endocrinology - [place] #2 [place] [address] Chetan Do MD #[address] [phone] 08/14/2024 1:00 PM CDT Office Visit [facility] Medical [facility] - Pulmonology & Sleep Medicine - [place] #2 [place] [address] Raghu Green MD #2 [place] [address] 09/17/2024 1:00 PM CDT Office Visit [facility] Medical [facility] - Family Medicine - [place] #2 [place] [address] Nicolas Greer MD #2 [facility] [address] [place] [address] documented as of this encounter Visit Diagnoses Not on filedocumented in this encounter Additional Health Concerns Assessment Noted Time PHQ-9 Depression Total Score: 0 09/22/19 1:48 PM CDT documented as of this encounter Care Teams Trimmer Sorter Relationship Specialty Start Date End Date Nicolas Greer MD #[address] [address] PCP - General Family Medicine 09/08/21 Ariel Christiansen MD Consulting Physician Cardiovascular Disease - Cardiology 07/19/16 [place] [address] [facility] [address] [place] [address] Donor Recruiter Pulmonary Disease 06/18/20 Keny Saldaña APRN, CLIENT MANAGER [employer] #[address] [address] Nurse Practitioner Advanced Practice Nurse 09/08/21 Cristian Dewitt MD #[address] [address] Consulting Physician Cardiovascular Disease - Cardiology 10/06/21 02/07/24 Ale Spain, RN [place] Loss Prevention Associate 03/15/22 02/12/23 Ale Spain, RN [place] Nurse Loss Prevention Associate 03/15/22 02/13/23 Yamel Kurtz III, MD #2 [place] [address] Consulting Physician Urology 09/11/22 Raghu Green MD #2 [place] [address] Consulting Physician Pulmonary Disease 01/04/22 Warren Osborn MD #[address] [address] Consulting Physician Colon and Rectal Surgery 05/21/23 Ale Spain, RN [place] Nurse Loss Prevention Associate 09/05/23 Chetan Do MD #[address] [address] Consulting Physician Endocrinology 01/23/24 documented as of this encounter
--- OUTSIDE RECORDS SUMMARY | 2024-03-31 13:15 | XMS_ITS | Encounter Summary ---
Author Organization [facility] Address [address] [place] [place] [address] Phone Care Team Providers Care Spa Director Name Role Phone Nicolas Greer MD Primary Care Provider [phone] Ariel Christiansen MD Unavailable [phone] Parmjit Vogel MD Unavailable [phone] Nicolas Greer MD Primary Care Provider [phone] Keny Saldaña APRN, BRUSH MATERIAL PREPARER Unavailable Cristian Dewitt MD Unavailable Ale Black RN Unavailable Unavailable Ale Spain RN Unavailable Unavailable Jerardo MCCANN MD, Courtney Unavailable [phone] Raghu Green MD Unavailable Warren Osborn MD Unavailable Ale Spain RN Unavailable Unavailable Chetan Do MD Unavailable Reason for Visit * Reason Comments Medication Refill Encounter Details Date Type Department Care Team (Late st Contact Info) Description 06/07/2020 Refill [facility] [place] [address] Nicolas Greer MD [facility] [address] [place] [address] Medication Refill Social History Tobacco Use Types [...] Job Start Date Job End Date Retired [employer] Not on file Not on file Not on file COVID-19 Exposure Response Date Recorded In the last month, have you been in contact with someone who was confirmed or suspected to have Coronavirus / COVID-19? No / Unsure 06/08/2020 2:42 PM CDT documented as of this encounter Miscellaneous Notes * Telephone Encounter - Kayla Meehan RN - 06/07/2020 11:38 AM CDT [...] - Family Medicine - Keny Crowder APN, BRUSH MATERIAL PREPARER 1 year ago Ptosis of both eyelids [facility] Medical [facility] - Keny Crowder APN, CNP 1 year ago Hypothyroidism, unspecified type [facility] - Nicolas Waters MD Upcoming Appointments Future Appointments Tomorrow Nicolas Greer MD [facility] - [place], [facility] SUPERINTENDENT GREENS - Recent and Past Visits Recent Visits [...] obstructive pulmonary disease, unspecified COPD type (HCC) [facility] - Nicolas Waters MD 7 months ago Hyperlipidemia, unspecified hyperlipidemia type [facility] - Nicolas Watesr MD 10 months ago Pulmonary emphysema, unspecified emphysema type (HCC) [facility] - Keny Crowder APN, BRUSH MATERIAL PREPARER 1 year ago Ptosis of both eyelids [facility] Keny Crowder APN, BRUSH MATERIAL PREPARER 1 year ago Hypothyroidism, unspecified type [facility] Nicolas Waters MD Upcoming Appointments Future Appointments Tomorrow Nicolas Gre[facility] MD [facility] - Recent and Past Visits Recent Visits Date Type Provider Dept 03/11/20 Office Visit Nicolas Greer MD [facility] 10/14/19 Office Visit Nicolas Greer MD [facility] 07/14/19 Office Visit Keny Saldaña APN, BRUSH MATERIAL PREPARER [facility] 05/22/19 Telemedicine Keny Saldaña APN, CNP [facility] [place] Showing recent visits within past 460 [...] obstructive pulmonary disease, unspecified COPD type (HCC) [facility] Nicolas Waters MD 7 months ago Hyperlipidemia, unspecified hyperlipidemia type [facility] Nicolas Waters MD 10 months ago Pulmonary emphysema, unspecified emphysema type (HCC) [facility] - Keny Crowder APN, CNP 1 year ago Ptosis of both eyelids [facility] Keny Crowder APN, CNP 1 year ago Hypothyroidism, unspecified type [facility] Nicolas Waters MD Upcoming Appointments Future Appointments Tomorrow Nicolas Greer MD [facility] - Recent and Past Visits Recent Visits [...] Provider Dept 06/08/20 Appointment Nicolas Greer MD [facility] Showing future appointments within next 90 days with a meds authorizing provider and meeting all other requirements documented in this encounter Plan of Treatment Upcoming Encounters Date Type Department Care Team (Late st Contact Info) Description 04/24/2024 2:00 PM CDT Office Visit [facility] Medical [facility] - Endocrinology - [place] #2 [place] [address] Chetan Do MD #[address] [address] 08/14/2024 1:00 PM CDT Office Visit [facility] Medical [facility] - Pulmonology & Sleep Medicine [facility] #2 [place] [address] Raghu Green MD #2 [place] [address] 09/17/2024 1:00 PM CDT Office Visit [facility] Medical [facility] - Family Medicine - [place] #2 [place] [address] Nicolas Greer MD #[address] [address] documented as of this encounter Visit Diagnoses Diagnosis Depression with anxiety Dysthymic disorder Pulmonary emphysema, unspecified emphysema type (HCC) documented in this encounter Additional Health Concerns Infection Onset Date Last Indicated Resolved Time COVID - 19 09/02/2021 09/02/2021 09/03/2021 2:05 PM CDT COVID - 19 12/24/2021 12/24/2021 12/26/2021 8:07 AM APPAREL STOCK CHECKER Respiratory Rule Out - RPA 12/24/2021 12/24/2021 1 02/24/2021 4:41 PM APPAREL STOCK CHECKER Influenza 12/24/2021 12/24/2021 12/31/2021 12:1 6 AM APPAREL STOCK CHECKER Assessment Noted Time PHQ-9 Depression Total Score: 0 02/12/19 20 10:45 AM APPAREL STOCK CHECKER documented as of this encounter Care Teams Spa Director Relationship Specialty Start Date End Date Nicolas Greer MD #[address] [address] PCP - General Family Medicine 12/22/14 09/07/21 Nicolas Greer MD #[address] [address] PCP - General Family Medicine 09/08/21 Ariel Christiansen MD #[address] [address] Consulting Physician Cardiovascular Disease - Cardiology 07/19/16 [place] [address] [address] Sewer Pulmonary Disease 06/18/20 Keny Saldaña APRN, BRUSH MATERIAL PREPARER #[address] [address] Nurse Practitioner Advanced Practice Nurse 09/08/21 Cristian Dewitt MD #[address] [address] Consulting Physician Cardiovascular Disease - Cardiology 10/06/21 02/07/24 Ale Spain, [place] Sleeve Presser Operator 03/15/22 02/12/23 Ale Spain RN [place] Nurse Sleeve Presser Operator 03/15/22 02/13/23 Yamel Kurtz III, MD #2 [place] [address] Consulting Physician Urology 09/11/22 Raghu Green MD #2 [place] [address] Consulting Physician Pulmonary Disease 01/04/22 Warren Osborn MD #[address] [address] Consulting Physician Colon and Rectal Surgery 05/21/23 Ale Spain, RN [place] Nurse Sleeve Presser Operator 09/05/23 Chetan Do MD #[address] [phone] Consulting Physician Endocrinology 01/23/24 documented as of this encounter
--- OUTSIDE RECORDS SUMMARY | 2024-03-31 13:15 | XMS_ITS | Encounter Summary ---
Author Organization [facility] Address [address] [place] [address] Phone Care Team Providers Care Salesperson Recreational Vehicles Name Role Phone Nicolas Greer MD Primary Care Provider [phone] Ariel Christiansen MD Unavailable [phone] Parmjit Vogel MD Unavailable [phone] Nicolas Greer MD Primary Care Provider [phone] Keny Saldaña APRN, PRODUCT STRATEGY DIRECTOR Unavailable Cristian Dewitt MD Unavailable Ale Black RN Unavailable Unavailable Ale Spain RN Unavailable Unavailable Jerardo MCCANN MD, Courtney Unavailable [phone] Raghu Green MD Unavailable Warren Osborn MD Unavailable Ale Spain RN Unavailable Unavailable Chetan Do MD Unavailable Reason for Visit * Reason Comments Medication Refill Encounter Details Date Type Department Care Team (Late st Contact Info) Description [facility]/07[facility] [address] [place], [place] [id number] Nicolas Greer MD [address] [address] Medication Refill Social History Tobacco Use Types [...] Job Start Date Job End Date Retired [employer] Not on file Not on file Not [...] ago Hyperlipidemia, unspecified hyperlipidemia type [facility] - [facility] - Nicolas Waters MD 6 months ago Pulmonary emphysema, unspecified emphysema type (HCC) [facility] - [facility] - Keny Crowder APN, PRODUCT STRATEGY DIRECTOR 8 months ago Ptosis of both eyelids [facility] - Keny Crowder APN, PRODUCT STRATEGY DIRECTOR 12 months ago Hypothyroidism, unspecified type [facility] - Nicolas Waters MD 1 year ago Non-insulin dependent type 2 diabetes mellitus (HCC[facility] MD Upcoming Appointments HAT BLOCK MAKER - Recent and Past Visits Recent Visits Date Type Provider Dept 10/14/19 Office Visit Nicolas Greer MD [facility] 07/14/19 Office Visit Keny Saldaña APN, MARY [facility] 05/22/19 Telemedicine Keny Saldaña APN, MARY [facility] 02/12/19 Office Visit Nicolas Greer MD [facility] 11/05/18 Office Visit [facility] Show[facility] recent visits within past 460 [...] ago Hyperlipidemia, unspecified hyperlipidemia type [facility] - Nicolas Waters MD 6 months ago Pulmonary emphysema, unspecified emphysema type (HCC) [facility] - Keny Crowder APN, MARY 8 months ago Ptosis of both eyelids [facility] - Keny Crowder APN, MARY 12 months ago Hypothyroidism, unspecified type [facility] - Nicolas Waters MD 1 year ago Non-insulin dependent type 2 diabetes mellitus (HCC) [facility] MD Upcoming Appointments HAT BLOCK MAKER - Recent and Past Visits Recent Visits [...] 3 months ago Hyperlipidemia, unspecified hyperlipidemia type [facility] Nicolas Waters MD 6 months ago Pulmonary emphysema, unspecified emphysema type (HCC) [facility] - Keny Crowder APN, MARY 8 months ago Ptosis of both eyelids [facility] Keny Crowder APN, MARY 12 months ago Hypothyroidism, unspecified type [facility] Nicolas Waters MD 1 year ago Non-insulin dependent type 2 diabetes mellitus (HCC) [facility] Nicolas Waters MD Upcoming Appointments HAT BLOCK MAKER - Recent and Past Visits Recent Visits [...] 3 months ago Hyperlipidemia, unspecified hyperlipidemia type [facility] - Nicolas Waters MD 6 months ago Pulmonary emphysema, unspecified emphysema type (HCC) [facility] - Keny Crowder APN, CNP 8 months ago Ptosis of both eyelids [facility] - Keny Crowder APN, CNP 12 months ago Hypothyroidism, unspecified type [facility] - Nicolas Waters MD 1 year ago Non-insulin dependent type 2 diabetes mellitus (HCC) [facility] - Nicolas Waters MD Upcoming Appointments HAT BLOCK MAKER - Recent and Past Visits Recent Visits Date Type Provider Dept 10/14/19 Office Visit Nicolas Greer MD [facility] 07/14/19 Office Visit Keny Saldaña APN, MARY [facility] 05/22/19 Telemedicine Keny Saldaña APN, MARY [facility] [place] 02/12/19 Office Visit Nicolas Greer MD [facility] 11/05/18 [facility] visits within past 460 [...] 3 months ago Hyperlipidemia, unspecified hyperlipidemia type [facility] - Nicolas Waters MD 6 months ago Pulmonary emphysema, unspecified emphysema type (HCC) [facility] - Keny Crowder APN, PRODUCT STRATEGY DIRECTOR 8 months ago Ptosis of both eyelids [facility] - Keny Crowder APN, PRODUCT STRATEGY DIRECTOR 12 months ago Hypothyroidism, unspecified type [facility] - Nicolas Waters MD 1 year ago Non-insulin dependent type 2 diabetes mellitus (HCC) [facility] - Nicolas Waters MD Upcoming Appointments HAT BLOCK MAKER - Recent and Past Visits Recent Visits Date Type Provider Dept 10/14/19 Office Visit [facility] 07/14[facility]19 Office Visit Keny Saldaña APN, MARY [facility] 05/22/19 Telemedicine Keny Saldaña APN, MARY [facility] [place] 02/12/19 [facility] 11/05/18 Office Visit Nicolas Greer MD [facility] Showing recent visits within past 460 days with a meds authorizing provider and meeting all other requirements Future Appointments No visits were found meeting these conditions. Showing future appointments within next 90 days with a meds authorizing provider and meeting all other requirements GER PROPERTY documented in this encounter Plan of Treatment Upcoming Encounters Date Type Department Care Team (Late st Contact Info) Description 04/24/2024 2:00 PM CDT Office Visit [facility] Endocrinology - [place] [address]2 [place] [address] Chetan Do MD #[address] [address] 08/14/2024 1:00 PM CDT Office Visit [facility] - Pulmonology & Sleep Medicine [facility] #2 [place] [address] Raghu Green MD #2 [place] [address] 09/17/2024 1:00 PM CDT Office Visit [facility] - [place] #2 [place] [address] Nicolas Greer MD #[address] [address] documented as of this encounter Visit Diagnoses Diagnosis Depression with anxiety Dysthymic disorder documented in this encounter Additional Health Concerns Infection Onset Date Last Indicated Resolved Time COVID - 19 03/11/2020 03/11/2020 03/31/2020 12:1 8 AM MANAGER PROPERTY COVID - 19 09/02/2021 09/02/2021 09/03/2021 2:05 PM CDT COVID - 19 12/24/2021 12/24/2021 12/26/2021 8:07 AM MANAGER PROPERTY Respiratory Rule Out - RPA 12/24/2021 12/24/2021 1 02/24/2021 4:41 PM MANAGER PROPERTY Influenza 12/24/2021 12/24/2021 12/31/2021 12:1 6 AM MANAGER PROPERTY Assessment Noted Time PHQ-9 Depression Total Score: 0 02/12/19 20 10:45 AM MANAGER PROPERTY documented as of this encounter Care Teams Salesperson Recreational Vehicles Relationship Specialty Start Date End Date Nicolas Greer MD #[address] [address] PCP - General Family Medicine 12/22/14 09/07/21 Nicolas Greer MD #[address] [address] PCP - General Family Medicine 09/08/21 Ariel Christiansen MD #[address] [address] Consulting Physician Cardiovascular Disease - Cardiology 07/19/16 [place] [address] [facility] [address] [place] [address] Rn Oncology Clinical Pulmonary Disease 06/18/20 Keny Saldaña, PLANER HAND, PRODUCT STRATEGY DIRECTOR #[address] [address] Nurse Practitioner Advanced Practice Nurse 09/08/21 Cristian Dewitt MD #[address] [address] Consulting Physician Cardiovascular Disease - Cardiology 10/06/21 02/07/24 Ale Spain, RN [place] Director Business Integration 03/15/22 02/12/23 Ale Spain, RN [place] Nurse Director Business Integration 03/15/22 02/13/23 Yamel Kurtz III, MD #2 [place] [address] Consulting Physician Urology 09/11/22 Raghu Green MD #2 [place] [address] Consulting Physician Pulmonary Disease 01/04/22 Warren Osborn MD #[address] [address] Consulting Physician Colon and Rectal Surgery 05/21/23 Ale Spain, RN [place] Nurse Director Business Integration 09/05/23 Chetan Do MD #[address] [address] Consulting Physician Endocrinology 01/23/24 documented as of this encounter
--- OUTSIDE RECORDS SUMMARY | 2024-03-31 13:15 | XMS_ITS | Encounter Summary ---
Author Organization [facility] Address [address] [place] [place] [address] Phone Care Team Providers Care Grain Oilseed Or Pasture Farm Manager Name Role Phone Nicolas Greer MD Primary Care Provider [phone] Ariel Christiansen MD Unavailable [phone] Parmjit Vogel MD Unavailable [phone] Nicolas Greer MD Primary Care Provider [phone] Keny Saldaña APRN, LONG WINDER TENDER Unavailable Cristian Dewitt MD Unavailable Ale Black RN Unavailable Unavailable Ale Spain RN Unavailable Unavailable Jerardo MCCANN MD, Courtney Unavailable [phone] Raghu Green MD Unavailable Warren Osborn MD Unavailable Ale Spain RN Unavailable Unavailable Chetan Do MD Unavailable Reason for Visit * Reason Comments Medication Refill Encounter Details Date Type Department Care Team (Late st Contact Info) Description 01/02/2020 Refill [facility] #2 [place] [address] Nicolas Greer MD #[address] [address] Medication Refill Social History Tobacco Use Types [...] Job Start Date Job End Date Retired [employer] Not on file Not on file Not on file COVID-19 Exposure Response Date Recorded In the last month, have you been in contact with someone who was confirmed or suspected to have Coronavirus / COVID-19? No / Unsure 12/11/2019 11:15 AM NUCLEAR CONTROL OPERATOR documented as of this encounter Miscellaneous Notes * Telephone Encounter - Ivanna England RN - 01/02/2020 2:52 PM CST Sent to PCP EAR CONTROL OPERATOR * Telephone Encounter - Ivanna England RN [...] 2 months ago Hyperlipidemia, unspecified hyperlipidemia type [facility] - Nicolas Waters MD 5 months ago Pulmonary emphysema, unspecified emphysema type (HCC) [facility] - Keny Crowder APN, MARY 7 months ago Ptosis of both eyelids [facility] - Keny Crowder APN, MARY 10 months ago Hypothyroidism, unspecified type [facility] Nicolas Waters MD 1 year ago Non-insulin dependent type 2 diabetes mellitus (HCC) [facility] Nicolas Waters MD Upcoming Appointments MENTAL HEALTH CASE MANAGER - Recent and Past Visits Recent Visits Date Type Provider Dept 10/14/19 Office Visit Nicolas Greer MD [facility] 07/14/19 Office Visit Keny Saldaña APN, MARY [facility] Telemedicine Keny Saldaña APN, CNP [facility] [place] 02/12/19 Office Visit Nicolas Greer MD [facility] 11/05/18 Office Visit Nicolas Greer MD [facility] Showing recent visits within past 460 [...] 2 months ago Hyperlipidemia, unspecified hyperlipidemia type [facility] Nicolas Waters MD 5 months ago Pulmonary emphysema, unspecified emphysema type (HCC) [facility] - Keny Crowder APN, MARY 7 months ago Ptosis of both eyelids [facility] [place] APN, LONG WINDER TENDER 10 months ago Hypothyroidism, unspecified type [facility] - Nicolas Waters MD 1 year ago Non-insulin dependent type 2 diabetes mellitus (HCC) [facility] - Nicolas Waters MD Upcoming Appointments MENTAL HEALTH CASE MANAGER - Recent and Past Visits Recent Visits Date Type Provider Dept 10/14/19 Office Visit Nicolas Greer MD [facility] [place] 07/14/19 Office Visit Keny Saldaña APN, LONG WINDER TENDER [facility] Telemedicine Keny Saldaña APN, LONG WINDER TENDER [facility] 02/12/19 [facility] 11/05/18 Office Visit Nicolas Greer MD [facility] Showing recent visits within past 460 days with a meds authorizing provider and meeting all other requirements Future Appointments No visits were found meeting these conditions. Showing future appointments within next 90 days with a meds authorizing provider and meeting all other requirements EAR CONTROL OPERATOR documented in this encounter Plan of Treatment Upcoming Encounters Date Type Department Care Team (Late st Contact Info) Description 04/24/2024 2:00 PM CDT Office [facility] Medical [facility] - Endocrinology - [place] #2 [place] [address] Chetan Do MD #[address] [address] 08/14/2024 1:00 PM CDT Office Visit [facility] Medical [facility] - Pulmonology & Sleep Medicine - [place] #2 [place] [address] Raghu Green MD #2 [place] [address] 09/17/2024 1:00 PM CDT [facility] Visit [facility] #2 [place] [address] Nicolas Greer MD #[address] [address] documented as of this encounter Visit Diagnoses Diagnosis Pulmonary emphysema, unspecified emphysema type (HCC) documented in this encounter Additional Health Concerns Infection Onset Date Last Indicated Resolved Time COVID - 19 03/11/2020 03/11/2020 03/31/2020 12:1 8 AM NUCLEAR CONTROL OPERATOR COVID - 19 09/02/2021 09/02/2021 09/03/2021 2:05 PM CDT COVID - 19 12/24/2021 12/24/2021 12/26/2021 8:07 AM NUCLEAR CONTROL OPERATOR Respiratory Rule Out - RPA 12/24/2021 12/24/2021 1 02/24/2021 4:41 PM NUCLEAR CONTROL OPERATOR Influenza 12/24/2021 12/24/2021 12/31/2021 12:1 6 AM NUCLEAR CONTROL OPERATOR Assessment Noted Time PHQ-9 Depression Total Score: 0 02/12/19 10:45 AM NUCLEAR CONTROL OPERATOR documented as of this encounter Care Teams Grain Oilseed Or Pasture Farm Manager Relationship Specialty Start Date End Date Nicolas Greer MD #[address] [address] PCP - General Family Medicine 12/22/14 09/07/21 Nicolas Greer MD #[address] [address] PCP - General Family Medicine 09/08/21 Ariel Christiansen MD #[address] [address] Consulting Physician Cardiovascular Disease - Cardiology 07/19/16 [place] [address] [facility] [address] [place] [address] Supervisor Hand Workers Pulmonary Disease 06/18/20 Keny Saldaña APRN, LONG WINDER TENDER #[address] [address] Nurse Practitioner Advanced Practice Nurse 09/08/21 Cristian Dewitt MD #[address] [address] Consulting Physician Cardiovascular Disease - Cardiology 10/06/21 02/07/24 Ale Spain, RN [place] Air Quality Consultant 03/15/22 02/12/23 Ale Spain, RN [place] Nurse Air Quality Consultant 03/15/22 02/13/23 Yamel Kurtz III, MD #2 [place] [address] Consulting Physician Urology 09/11/22 Raghu Green MD #2 [place] [address] Consulting Physician Pulmonary Disease 01/04/22 Warren Osborn MD #[address] [address] Consulting Physician Colon and Rectal Surgery 05/21/23 Ale Spain, RN [place] Nurse Air Quality Consultant 09/05/23 Chetan Do MD #[address] [phone] Consulting Physician Endocrinology 01/23/24 documented as of this encounter
--- OUTSIDE RECORDS SUMMARY | 2024-03-31 13:15 | XMS_ITS | Encounter Summary ---
Author Organization [facility] Address [address] [place] [address] Phone Care Team Providers Care Licensed Professional Counselor Name Role Phone Nicolas Greer MD Primary Care Provider [phone] Ariel Christiansen MD Unavailable [phone] Parmjit Vogel MD Unavailable [phone] Nicolas Greer MD Primary Care Provider [phone] Keny Saldaña APRN, ANVILSMITH Unavailable Cristian Dewitt MD Unavailable Ale Black RN Unavailable Unavailable Ale Spain RN Unavailable Unavailable Jerardo MCCANN MD, Courtney Unavailable [phone] Raghu Green MD Unavailable Warren Osborn MD Unavailable Ale Spain RN Unavailable Unavailable Chetan Do MD Unavailable Reason for Visit * Reason Comments Medication Refill Encounter Details Date Type Department Care Team (Late st Contact Info) Description 04/15/2020 Refill [facility] #2 [place] [address] Nicolas Greer MD #2 [facility] [address] [place] [address] Medication Refill Social History Tobacco Use Types [...] Job Start Date Job End Date Retired [employer] Not on file Not on file Not [...] - Family Medicine - Keny Crowder APN, ANVILSMITH 10 months ago Ptosis of both eyelids [facility] - Family Medicine - Keny Crowder APN, ANVILSMITH 1 year ago Hypothyroidism, unspecified type [facility] Nicolas Greer MD Upcoming Appointments Future Appointments In 1 month Nicolas Greer MD [facility] PROCUREMENT BUYER - Recent and Past Visits Recent Visits Date Type Provider Dept 03/11/20 Office Visit Nicolas Greer MD [facility] 10/14/19 Office Visit Nicolas Greer MD [facility] 07/14/19 Office Visit Keny Saldaña APN, MARY [facility] 05/22/19 Telemedicine Keny Saldaña APN, MARY [facility] 02/12/19 Office Visit Nicolas Greer MD [facility] Showing recent visits within past 460 days with a meds authorizing provider and meeting all other requirements Future Appointments Date Type Provider Dept 06/08/20 Appointment Nicolas [facility] MD [facility] Showing future appointments within next 90 days with a meds authorizing provider and meeting all other requirements ATURE SET CONSTRUCTOR documented in this encounter Plan of Treatment Upcoming Encounters Date Type Department Care Team (Late st Contact Info) Description 04/24/2024 2:00 PM CDT Office Visit [facility] Medical [facility] - Endocrinology - [place] #2 [place] [address] Chetan Do MD #[address] [address] 08/14/2024 1:00 PM CDT Office Visit [facility] Medical [facility] - Pulmonology & Sleep Medicine [facility] #2 [place] [address] Raghu Green MD #2 [place] [address] 09/17/2024 1:00 PM CDT Office Visit [facility] #2 [place] [address] Nicolas Greer MD #[address] [address] documented as of this encounter Visit Diagnoses Diagnosis Pulmonary emphysema, unspecified emphysema type (HCC) documented in this encounter Additional Health Concerns Infection Onset Date Last Indicated Resolved Time COVID - 19 09/02/2021 09/02/2021 09/03/2021 2:05 PM CDT COVID - 19 12/24/2021 12/24/2021 12/26/2021 8:07 AM MINIATURE SET CONSTRUCTOR Respiratory Rule Out - RPA 12/24/2021 12/24/2021 1 02/24/2021 4:41 PM MINIATURE SET CONSTRUCTOR Influenza 12/24/2021 12/24/2021 12/31/2021 12:1 6 AM MINIATURE SET CONSTRUCTOR Assessment Noted Time PHQ-9 Depression Total Score: 0 02/12/19 20 10:45 AM MINIATURE SET CONSTRUCTOR documented as of this encounter Care Teams Licensed Professional Counselor Relationship Specialty Start Date End Date Nicolas Greer MD #[address] [address] PCP - General Family Medicine 12/22/14 09/07/21 Nicolas Greer MD #[address] [address] PCP - General Family Medicine 09/08/21 Ariel Christiansen MD #[address] [address] Consulting Physician Cardiovascular Disease - Cardiology 07/19/16 [place] [address] [address] Electrician Deck Pulmonary Disease 06/18/20 Keny Saldaña, PLUMBING INSTALLER, ANVILSMITH #[address] [address] Nurse Practitioner Advanced Practice Nurse 09/08/21 Cristian Dewitt MD #[address] [address] Consulting Physician Cardiovascular Disease - Cardiology 10/06/21 02/07/24 Ale Spain, RN [place] General Maintenance Helper 03/15/22 02/12/23 Ale Spain, RN [place] Nurse General Maintenance Helper 03/15/22 02/13/23 Yamel Kurtz III, MD #2 [place] [address] Consulting Physician Urology 09/11/22 Raghu Green MD #2 [place] [address] Consulting Physician Pulmonary Disease 01/04/22 Warren Osborn MD #[address] [address] Consulting Physician Colon and Rectal Surgery 05/21/23 Ale Spain, RN [place] Nurse General Maintenance Helper 09/05/23 Chetan Do MD #[address] [phone] Consulting Physician Endocrinology 01/23/24 documented as of this encounter
--- OUTSIDE RECORDS SUMMARY | 2024-03-31 13:15 | XMS_ITS | Encounter Summary ---
Author Organization [facility] Address [address] [place] [address] [place] [address] Phone Care Team Providers Care Blankbook Stitching Machine Operator Name Role Phone Nicolas Greer MD Primary Care Provider [phone] Ariel Christiansen MD Unavailable [phone] Parmjit Vogel MD Unavailable [phone] Nicolas Greer MD Primary Care Provider [phone] Keny Saldaña APRN, EXPANDED DUTY DENTAL ASSISTANT Unavailable Cristian Dewitt MD Unavailable Ale Black RN Unavailable Unavailable Ale Spain RN Unavailable Unavailable Jerardo MCCANN MD, Courtney Unavailable [phone] Raghu Green MD Unavailable Warren Osborn MD Unavailable Ale Spain RN Unavailable Unavailable Chetan Do MD Unavailable Reason for Visit * Reason Comments Medication Refill Encounter Details Date Type Department Care Team (Late st Contact Info) Description 03/09/2020 Refill [facility] #2 [place] [address] Nicolas Greer MD #2 [facility] [address] [place] [address] Medication Refill Social History Tobacco Use Types [...] Job Start Date Job End Date Retired [employer] Not on file Not on file Not on file COVID-19 Exposure Response Date Recorded In the last month, have you been in contact with someone who was confirmed or suspected to have Coronavirus / COVID-19? No / Unsure 03/11/2020 9:15 AM IMAGING AIDE documented as of this encounter Miscellaneous Notes [...] Group - Family Medicine - Keny Crowder TEST PREPARER, EXPANDED DUTY DENTAL ASSISTANT 9 months ago Ptosis of both eyelids [facility] - Family Medicine - Keny Crowder APN, CNP 1 year ago Hypothyroidism, unspecified type [facility] - Nicolas Waters MD 1 year ago Non-insulin dependent type 2 diabetes mellitus (HCC) [facility] - Nicolas Waters MD Upcoming Appointments Future Appointments In 2 days Nicolas Greer MD [facility] - Recent and Past Visits Recent [...] 4 months ago Hyperlipidemia, unspecified hyperlipidemia type [facility] - Nicolas Waters MD 7 months ago Pulmonary emphysema, unspecified emphysema type (HCC) [facility] - Keny Crowder APN, MARY 9 months ago Ptosis of both eyelids [facility] Keny Esteves APN, CNP 1 year ago Hypothyroidism, unspecified type [facility] Nicolas Waters MD 1 year ago Non-insulin dependent type 2 diabetes mellitus (HCC) [facility] Nicolas Esquivel MD Upcoming Appointments Future Appointments In 2 days Nicolas Greer MD [facility] CREDIT SPECIALIST - Recent and Past Visits Recent [...] 4 months ago Hyperlipidemia, unspecified hyperlipidemia type [facility] - Nicolas Waters MD 7 months ago Pulmonary emphysema, unspecified emphysema type (HCC) [facility] - Keny Crowder APN, MARY 9 months ago Ptosis of both eyelids [facility] Keny Crowder APN, MARY 1 year ago Hypothyroidism, unspecified type [facility] Nicolas Waters MD 1 year ago Non-insulin dependent type 2 diabetes mellitus (HCC) [facility] Nicolas Waters MD Upcoming Appointments Future Appointments In 2 days Nicolas Greer MD [facility] - Recent and Past Visits Recent Visits Date Type Provider Dept 10/14/19 Office Visit Nicolas Greer MD [facility] 07/14/19 Office Visit Ken[facility]daña APN, MARY [facility] Telemedicine Keny [facility]daña APN, MARY [facility]/12[facility] Office Visit [facility] Showing recent visits within past 460 days with a meds authorizing provider and meeting all other requirements Future Appointments Date Type Provider Dept 03/11/20 Appointment Nicolas Greer MD [facility] Showing future appointments within next 90 days with a meds authorizing provider and meeting all other requirements ING AIDE * Telephone Encounter - Kayla Meehan RN - 03/09/2020 11:37 AM CST Medication approved and signed per standing order protocol. ING AIDE documented in this encounter Plan of Treatment Upcoming Encounters Date Type Department Care Team (Late st Contact Info) Description 04/24/2024 2:00 PM CDT Office Visit [facility] Medical [facility] - Endocrinology - [place] #2 [place] [address] Chetan Do MD #[address] [address] 08/14/2024 1:00 PM CDT Office Visit [facility] Medical [facility] - Pulmonology & Sleep Medicine - [place] #2 [facility] [place] [address] Raghu Green MD #2 [place] [address] 09/17/2024 1:00 PM CDT Office Visit [facility] Medical [facility] - Family Medicine - [place] #2 [place] [address] Nicolas Greer MD [address] [address] documented as of this encounter Visit Diagnoses Diagnosis Pulmonary emphysema, unspecified emphysema type (HCC) documented in this encounter Additional Health Concerns Infection Onset Date Last Indicated Resolved Time COVID - 19 03/11/2020 03/11/2020 03/31/2020 12:1 8 AM IMAGING AIDE COVID - 19 09/02/2021 09/02/2021 09/03/2021 2:05 PM CDT COVID - 19 12/24/2021 12/24/2021 12/26/2021 8:07 AM IMAGING AIDE Respiratory Rule Out - RPA 12/24/2021 12/24/2021 1 02/24/2021 4:41 PM IMAGING AIDE Influenza 12/24/2021 12/24/2021 12/31/2021 12:1 6 AM IMAGING AIDE Assessment Noted Time PHQ-9 Depression Total Score: 0 02/12/19 10:45 AM IMAGING AIDE documented as of this encounter Care Teams Blankbook Stitching Machine Operator Relationship Specialty Start Date End Date Nicolas Greer MD #[address] [address] PCP - General Family Medicine 12/22/14 09/07/21 Nicolas Greer MD #[address] [address] PCP - General Family Medicine 09/08/21 Ariel Christiansen MD #[address] [address] Consulting Physician Cardiovascular Disease - Cardiology 07/19/16 [place] [address] [address] Tank Washer Pulmonary Disease 06/18/20 Keny Saldaña APRN, EXPANDED DUTY DENTAL ASSISTANT #[address] [address] Nurse Practitioner Advanced Practice Nurse 09/08/21 Cristian Dewitt MD #[address] [address] Consulting Physician Cardiovascular Disease - Cardiology 10/06/21 02/07/24 Ale Spain, RN [place] Rim Roller Operator 03/15/22 02/12/23 Ale Spain, RN [place] Nurse Rim Roller Operator 03/15/22 02/13/23 Yamel Kurtz III, MD #2 [place] [address] Consulting Physician Urology 09/11/22 Raghu Green MD #2 [place] [address] Consulting Physician Pulmonary Disease 01/04/22 Warren Osborn MD #[address] [address] Consulting Physician Colon and Rectal Surgery 05/21/23 Ale Spain, RN [place] Nurse Rim Roller Operator 09/05/23 Chetan Do MD #[address] [phone] Consulting Physician Endocrinology 01/23/24 documented as of this encounter
--- OUTSIDE RECORDS SUMMARY | 2024-03-31 13:15 | XMS_ITS | Encounter Summary ---
Author Organization [facility] Address [address] [place] [address] Phone Care Team Providers Care Supervisor Machining Name Role Phone Ariel Christiansen MD Unavailable [phone] Parmjit Vogel MD Unavailable [phone] Nicolas Greer MD Primary Care Provider [phone] Keny Saldaña APRN, FOUNTAIN OPERATOR Unavailable Cristian Dewitt MD Unavailable Unaruslani Ale Richard RN Unavailable Unavailable Ale Spain RN Unavailable Unavailable Jerardo MCCANN MD, Courtney Unavailable [phone] Raghu Green MD Unavailable Warren Osborn MD Unavailable Ale Spain RN Unavailable Unavailable Chetan Do MD Unavailable Encounter Details Date Type Department Care Team (Late st Contact Info) Description 02/16/[address] [facility] [address] [place] [id number] Nicolas Greer MD #[address] [address] Other fatigue Social History Tobacco Use Types [...] Industry Job Start Date Job End Date [employer] Not on file Not on file Not on file COVID-19 Exposure Response Date Recorded In the last 10 days, have yo u been in contact with someone who was confirmed or suspected to have Coronavirus/COVID-19? No / Unsure 02/15/2022 10:32 AM PATTERN CHAIN MAKER SUPERVISOR documented as of this encounter Plan of Treatment Upcoming Encounters Date Type Department Care Team (Late st Contact Info) Description 04/24/2024 2:00 PM CDT Office Visit [facility] Medical Group - Endocrinology - [place] #2 [place] [address] Chetan Do MD #[address] [phone] 08/14/2024 1:00 PM CDT Office Visit [facility] - Pulmonology & Sleep Medicine [facility] #2 [place] [address] Raghu Green MD #2 [place] [address] 09/17/2024 1:00 PM CDT Office Visit [facility] - Family Medicine - [place] #2 [place] [address] Nicolas Greer MD #2 [facility] [place] [address] documented as of this encounter Procedures Procedure Name Priority Date/Time Associated Diagnosis Comments CULTURE, URINE Routine 02/16/2022 8:25 AM PATTERN CHAIN MAKER SUPERVISOR Other fatigue documented in this encounter Results * CULTURE, URINE (02/16/2022 8:25 AM PATTERN CHAIN MAKER SUPERVISOR) CULTURE RESULTS MIXED GROWTH OF ONE OR MORE DISTAL URETHRAL CONTAMINANTS 02/17/2022 4:22 PM PATTERN CHAIN MAKER SUPERVISOR [facility] Culture Non-Phlebotomy Collection / Unknown 02/16/2022 8:25 AM PATTERN CHAIN MAKER SUPERVISOR 02/16/2022 10:53 AM PATTERN CHAIN MAKER SUPERVISOR Nicolas Greer MD MI[facility]BIOLOGY [facility] Final Result [facility] [address] [place] [address], documented in this encounter Visit Diagnoses Diagnosis Other fatigue documented in this encounter Additional Health Concerns Assessment Noted Time PHQ-9 Depression Total Score: 0 02/12/19 20 10:45 AM PATTERN CHAIN MAKER SUPERVISOR documented as of this encounter Care Teams Supervisor Machining Relationship Specialty Start Date End Date Nicolas Greer MD #2 [facility] [place] [address] PCP - General Family Medicine 09/08/21 Ariel Christiansen MD Consulting Physician Cardiovascular Disease - Cardiology 07/19/16 [place] [address] [address] Wet Process Head Miller Pulmonary Disease 06/18/20 Keny Saldaña APRN, FOUNTAIN OPERATOR #[address] [address] Nurse Practitioner Advanced Practice Nurse 09/08/21 Cristian Dewitt MD #[address] [address] Consulting Physician Cardiovascular Disease - Cardiology 10/06/21 02/07/24 Ale Spain, RN [place] Unix Architect 03/15/22 02/12/23 Ale Spain, RN [place] Nurse Unix Architect 03/15/22 02/13/23 Yamel Kurtz III, MD #2 [place] [address] Consulting Physician Urology 09/11/22 Raghu Green MD #2 [place] [address] Consulting Physician Pulmonary Disease 01/04/22 Warren Osborn MD #[address] [address] Consulting Physician Colon and Rectal Surgery 05/21/23 Ale Spain, RN [place] Nurse Unix Architect 09/05/23 Chetan Do MD #[address] [address] Consulting Physician Endocrinology 01/23/24 documented as of this encounter
--- OUTSIDE RECORDS SUMMARY | 2024-03-31 13:15 | XMS_ITS | Encounter Summary ---
Author Organization [facility] Address [address] [place] [address] Phone Care Team Providers Care Metal Flow Coordinator Name Role Phone Nicolas Greer MD Primary Care Provider [phone] Ariel Christianesn MD Unavailable [phone] Parmjit Vogel MD Unavailable [phone] Nicolas Greer MD Primary Care Provider [phone] Keny Saldaña APRN, MARKETING EDUCATION TEACHER Unavailable Cristian Dewitt MD Unavailable Ale Black RN Unavailable Unavailable Ale Spain RN Unavailable Unavailable Jerardo MCCANN MD, Courtney Unavailable [phone] Raghu Green MD Unavailable Warren Osborn MD Unavailable Ale Spain RN Unavailable Unavailable Chetan Do MD Unavailable Reason for Visit * Reason Comments Medication Refill Encounter Details Date Type Department Care Team (Late st Contact Info) Description 08/02/2021 Refill [facility] #2 [place] [address] Nicolas Greer MD #2 [facility] [address] [place] [address] Medication Refill Social History Tobacco Use Types [...] Job Start Date Job End Date Retired [employer] Not on file Not on file [...] Office Visit [facility] Medical [facility] - Endocrinology - [place] #2 [place] [address] Chetan Do MD #[address] [address] 08/14/2024 1:00 PM CDT Office Visit [facility] Medical [facility] - Pulmonology & Sleep Medicine - [place] #2 [place] [address] Raghu Green MD #[address] [place] [address] 09/17/2024 1:00 PM CDT Office Visit [facility] Medical Group - Family Medicine - [place] #2 [place] [address] Nicolas Greer MD #[address] [place] [address] documented as of this encounter Visit Diagnoses Not on filedocumented in this encounter Additional Health Concerns Infection Onset Date Last Indicated Resolved Time COVID - 19 09/02/2021 09/02/2021 09/03/2021 2:05 PM CDT COVID - 19 12/24/2021 12/24/2021 12/26/2021 8:07 AM DIRECTOR INTERNAL COMMUNICATIONS Respiratory Rule Out - RPA 12/24/2021 12/24/2021 1 02/24/2021 4:41 PM DIRECTOR INTERNAL COMMUNICATIONS Influenza 12/24/2021 12/24/2021 12/31/2021 12:1 6 AM DIRECTOR INTERNAL COMMUNICATIONS Assessment Noted Time PHQ-9 Depression Total Score: 0 02/12/19 10:45 AM DIRECTOR INTERNAL COMMUNICATIONS documented as of this encounter Care Teams Metal Flow Coordinator Relationship Specialty Start Date End Date Nicolas Greer MD #[address] [address] PCP - General Family Medicine 12/22/14 09/07/21 Nicolas Greer MD #[address] [address] PCP - General Family Medicine 09/08/21 Ariel Christiansen MD #[address] [address] Consulting Physician Cardiovascular Disease - Cardiology 07/19/16 [place] [address] [address] Joint Filler Pulmonary Disease 06/18/20 Keny Saldaña APRN, MARKETING EDUCATION TEACHER #[address] [address] Nurse Practitioner Advanced Practice Nurse 09/08/21 Cristian Dewitt MD #[address] [address] Consulting Physician Cardiovascular Disease - Cardiology 10/06/21 02/07/24 Ale Spain RN [place] Zig Zag Spring Machine Operator 03/15/22 02/12/23 Ale Spain RN [place] Nurse Zig Zag Spring Machine Operator 03/15/22 02/13/23 Yamel Kurtz III, MD #2 [place] [address] Consulting Physician Urology 09/11/22 Raghu Green MD #2 [place] [address] Consulting Physician Pulmonary Disease 01/04/22 Warren Osborn MD #[address] [address] Consulting Physician Colon and Rectal Surgery 05/21/23 Ale Spain RN [place] Nurse Zig Zag Spring Machine Operator 09/05/23 Chetan Do MD #[address] [address] Consulting Physician Endocrinology 01/23/24 documented as of this encounter
--- OUTSIDE RECORDS SUMMARY | 2024-03-31 13:15 | XMS_ITS | Encounter Summary ---
Author Organization [facility] Address [address] [place] [address] [place] [address] Phone Care Team Providers Care Brine Plant Operator Name Role Phone Ariel Christiansen MD Unavailable [phone] Parmjit Vogel MD Unavailable [phone] Nicolas Greer MD Primary Care Provider [phone] Keny Saldaña APRN, SPA ATTENDANT Unavailable Cristian Dewitt MD Unavailable Ale Black RN Unavailable Unavailable Ale Spain RN Unavailable Unavailable Jerardo MCCANN MD, Courtney Unavailable [phone] Raghu Green MD Unavailable Warren Osborn MD Unavailable Ale Spain RN Unavailable Unavailable Chetan Do MD Unavailable Reason for Visit * Reason Comments Medication Refill Encounter Details Date Type Department Care Team (Late st Contact Info) Description 01/31/2023 Refill [facility] #2 [place] [address] Nicolas Greer MD #[address] [address] Medication Refill Social History Tobacco Use Types [...] Job Start Date Job End Date Retired [employer] Not on file Not on file Not [...] [facility] 02/13/22 Telemedicine Nicolas Greer MD [facility] Showing recent visits within past 365 days and meeting all other requirements Future Appointments Date Type Provider Dept 04/04/23 Appointment Nicolas Greer MD [facility] Showing future appointments within next 90 days and meeting all other requirements GUN SHELL LOADING MACHINE OPERATOR documented in this encounter Plan of Treatment Upcoming Encounters Date Type Department Care Team (Late st Contact Info) Description 04/24/2024 2:00 PM CDT Office Visit [facility] Medical [facility] - Endocrinology - [place] #2 [place] [address] Chetan Do MD #[address] [phone] 08/14/2024 1:00 PM CDT Office Visit [facility] Medical [facility] - Pulmonology & Sleep Medicine - [place] #2 [place] [address] Raghu Green MD #2 [place] [address] 09/17/2024 1:00 PM CDT Office Visit [facility] Medical [facility] - Family Medicine - [place] #2 [place] [address] Nicolas Greer MD #[address] [place] [address] documented as of this encounter Visit Diagnoses Not on filedocumented in this encounter Additional Health Concerns Assessment Noted Time PHQ-9 Depression Total Score: 0 09/22/19 1:48 PM CDT documented as of this encounter Care Teams Brine Plant Operator Relationship Specialty Start Date End Date Nicolas Greer MD #[address] [address] PCP - General Family Medicine 09/08/21 Ariel Christiansen MD Consulting Physician Cardiovascular Disease - Cardiology 07/19/16 [place] [address] [facility] [address] [place] [address] Conference Director Pulmonary Disease 06/18/20 Keny Saldaña APRN, SPA ATTENDANT #[address] [address] Nurse Practitioner Advanced Practice Nurse 09/08/21 Cristian Dewitt MD #[address] [address] Consulting Physician Cardiovascular Disease - Cardiology 10/06/21 02/07/24 Ale Spain, RN [place] Suspect Artist Supervisor 03/15/22 02/12/23 Ale Spain, RN [place] Nurse Suspect Artist Supervisor 03/15/22 02/13/23 Yamel Kurtz III, MD #2 [place] [address] Consulting Physician Urology 09/11/22 Raghu Green MD #2 [place] [address] Consulting Physician Pulmonary Disease 01/04/22 Warren Osborn MD #[address] [address] Consulting Physician Colon and Rectal Surgery 05/21/23 Ale Spain, RN [place] Nurse Suspect Artist Supervisor 09/05/23 Chetan Do MD #[address] [address] Consulting Physician Endocrinology 01/23/24 documented as of this encounter
--- OUTSIDE RECORDS SUMMARY | 2024-03-31 13:15 | XMS_ITS | Encounter Summary ---
Author Organization [facility] Address [address] [place] [address] Phone Care Team Providers Care Scrap Sorter Name Role Phone Ariel Christiansen MD Unavailable [phone] Parmjit Vogel MD Unavailable [phone] Nicolas Greer MD Primary Care Provider [phone] Keny Saldaña APRN, VOCAL PERFORMER Unavailable Cristian Dewitt MD Unavailable Ale Black RN Unavailable Unavailable Ale Spain RN Unavailable Unavailable Jerardo MCCANN MD, Courtney Unavailable [phone] Raghu Green MD Unavailable Warren Osborn MD Unavailable Ale Spain RN Unavailable Unavailable Chetan Do MD Unavailable Reason for Visit * Reason Comments Medication Refill Encounter Details Date Type Department Care Team (Late st Contact Info) Description 10/25/2022 Refill [facility] #2 [place] [address] Nicolas Greer MD #[address] [address] Medication Refill Social History Tobacco Use Types [...] Job Start Date Job End Date Retired [employer] Not on file Not on file Not [...] Med Name: ALBUTEROL HFA 90 MCG INHALER ([place]] 8.5 g 1 Sig: INHALE TWO PUFFS [...] [facility] 02/13/22 Telemedicine Nicolas Greer MD [facility] 01/11/22 Telemedicine Nicolas Greer MD [facility] 01/09/22 Telemedicine Keny Saldaña APRN, MARY [facility] 12/19/21 Office Visit Nicolas Greer MD [facility] Showing recent visits within past 365 days and meeting all other requirements Future Appointments Date Type Provider Dept 12/21/22 Appointment Nicolas Greer MD [facility] Showing future appointments within next 90 days and meeting all other requirements documented in this encounter Plan of Treatment Upcoming Encounters Date Type Department Care Team (Late st Contact Info) Description 04/24/2024 2:00 PM CDT Office Visit [facility] - Endocrinology - [place] #2 [place] [address] Chetan Do MD #[address] [phone] 08/14/2024 1:00 PM CDT Office Visit [facility] - Pulmonology & Sleep Medicine - [place] #2 [place] [address] Raghu Green MD #2 [place] [address] 09/17/2024 1:00 PM CDT Office Visit [facility] Medical [facility] - Family Medicine - [place] #2 [place] [address] Nicolas Greer MD #[address] [address] documented as of this encounter Visit Diagnoses Not on filedocumented in this encounter Additional Health Concerns Assessment Noted Time PHQ-9 Depression Total Score: 0 09/22/19 23 1:48 PM CDT documented as of this encounter Care Teams Scrap Sorter Relationship Specialty Start Date End Date Nicolas Greer MD #[address] [address] PCP - General Family Medicine 09/08/21 Ariel Christiansen MD Consulting Physician Cardiovascular Disease - Cardiology 07/19/16 [place] [address] [address] Loop Drier Operator Pulmonary Disease 06/18/20 Keny Saldaña APRN, VOCAL PERFORMER #[address] [address] Nurse Practitioner Advanced Practice Nurse 09/08/21 Cristian Dewitt MD #[address] [address] Consulting Physician Cardiovascular Disease - Cardiology 10/06/21 02/07/24 Ale Spain, RN [place] High School Science Teacher 03/15/22 02/12/23 Ale Spain, RN [place] Nurse High School Science Teacher 03/15/22 02/13/23 Yamel Kurtz III, MD #2 [place] [address] Consulting Physician Urology 09/11/22 Raghu Green MD #2 [place] [address] Consulting Physician Pulmonary Disease 01/04/22 Warren Osborn MD #[address] [address] Consulting Physician Colon and Rectal Surgery 05/21/23 Ale Spain, RN [place] Nurse High School Science Teacher 09/05/23 Chetan Do MD #[address] [address] Consulting Physician Endocrinology 01/23/24 documented as of this encounter
--- OUTSIDE RECORDS SUMMARY | 2024-03-31 13:16 | XMS_ITS | Encounter Summary ---
Author Organization [facility] Address [address] [place] [address] Phone Care Team Providers Care Highway Engineering Technician Name Role Phone Nicolas Greer MD Primary Care Provider [phone] Ariel Christiansen MD Unavailable [phone] Parmjit Vogel MD Unavailable [phone] Nicolas Greer MD Primary Care Provider [phone] Keny Saldaña APRN, SUPERVISOR AIRCRAFT CLEANING Unavailable Cristian Dewitt MD Unavailable Ale Black RN Unavailable Unavailable Ale Spain RN Unavailable Unavailable Jerardo MCCANN MD, Courtney Unavailable [phone] Raghu Green MD Unavailable Warren Osborn MD Unavailable Ale Spain RN Unavailable Unavailable Chetan Do MD Unavailable Reason for Visit * Reason Onset Date Comments Medication Refill Medication Refill 09/13/2020 Encounter Details Date Type Department Care Team (Late st Contact Info) Description 09/10/2020 Refill [facility] - Family [facility] [address] [place] [address] Nicolas Greer MD [address] [address] Medication Refill; Medication Refill Social History Tobacco [...] Job Start Date Job End Date Retired [employer] Not on file Not on file Not [...] Visits 2 months ago COPD exacerbation (HCC) [facility] Nicolas Waters MD 3 months ago SOB (shortness of breath) [facility] Nicolas Waters MD 6 months ago Chronic obstructive pulmonary disease, unspecified COPD type (HCC) [facility] Nicolas Waters MD 11 months ago Hyperlipidemia, unspecified hyperlipidemia type [facility] Nicolas Waters MD 1 year ago Pulmonary emphysema, unspecified emphysema type (HCC) [facility] Keny Crowder APN, MARY Upcoming Appointments Future Appointments In 1 week Nicolas Greer MD [facility] SOIL SCIENCE PROFESSOR - Recent and Past Visits Recent Visits Date Type Provider Dept 06/21/20 Office Visit Nicolas Greer MD [facility] 06/08/20 Office Visit Nicolas Greer MD [facility] 03/11/20 Office Visit Nicolas Greer MD [facility] 10/14/19 Office Visit Nicolas Greer MD [facility] 07/14/19 Office Visit Keny Saldaña APN, MARY [facility] Showing recent visits within past 460 days with a meds authorizing provider and meeting all other requirements Future Appointments Date Type Provider Dept 09/22/20 Appointment Nicolas Greer MD [facility] Showing future appointments within next 90 days with a meds authorizing provider and meeting all other requirements documented in this encounter Plan of Treatment Upcoming Encounters Date Type Department Care Team (Late st Contact Info) Description 04/24/2024 2:00 PM CDT Office Visit [facility] Medical [facility] - Endocrinology - [place] #2 [place] [address] Chetan Do MD #[address] [address] 08/14/2024 1:00 PM CDT Office Visit [facility] - Pulmonology & Sleep Medicine - [place] #2 [place] [address] Raghu Green MD #2 [place] [address] 09/17/2024 1:00 PM CDT Office Visit [facility] Medical [facility] - Family Medicine - [place] #2 [place] [address] Nicolas Greer MD #[address] [address] documented as of this encounter Visit Diagnoses Diagnosis Depression with anxiety Dysthymic disorder Pulmonary emphysema, unspecified emphysema type (HCC) documented in this encounter Additional Health Concerns Infection Onset Date Last Indicated Resolved Time COVID - 19 09/02/2021 09/02/2021 09/03/2021 2:05 PM CDT COVID - 19 12/24/2021 12/24/2021 12/26/2021 8:07 AM RETAINING ROOM CUTTER Respiratory Rule Out - RPA 12/24/2021 12/24/2021 1 02/24/2021 4:41 PM RETAINING ROOM CUTTER Influenza 12/24/2021 12/24/2021 12/31/2021 12:1 6 AM RETAINING ROOM CUTTER Assessment Noted Time PHQ-9 Depression Total Score: 0 02/12/19 20 10:45 AM RETAINING ROOM CUTTER documented as of this encounter Care Teams Highway Engineering Technician Relationship Specialty Start Date End Date Nicolas Greer MD #[address] [address] PCP - General Family Medicine 12/22/14 09/07/21 Nicolas Greer MD #[address] [address] PCP - General Family Medicine 09/08/21 Ariel Christiansen MD #[address] [address] Consulting Physician Cardiovascular Disease - Cardiology 07/19/16 [place] [address] [address] Station Detective Pulmonary Disease 06/18/20 Keny Saldaña APRN, SUPERVISOR AIRCRAFT CLEANING #[address] [address] Nurse Practitioner Advanced Practice Nurse 09/08/21 Cristian Dewitt MD #[address] [address] Consulting Physician Cardiovascular Disease - Cardiology 10/06/21 02/07/24 Ale Spain, RN [place] Property Officer 03/15/22 02/12/23 Ale Spain, [place] Nurse Property Officer 03/15/22 02/13/23 Yamel Kurtz III, MD #2 [place] [address] Consulting Physician Urology 09/11/22 Raghu Green MD #2 [place] [address] Consulting Physician Pulmonary Disease 01/04/22 Warren Osborn MD #[address] [address] Consulting Physician Colon and Rectal Surgery 05/21/23 Ale Spain RN [place] Nurse Property Officer 09/05/23 Chetan Do MD #[address] [address] Consulting Physician Endocrinology 01/23/24 documented as of this encounter
--- OUTSIDE RECORDS SUMMARY | 2024-03-31 13:16 | XMS_ITS | Encounter Summary ---
Author Organization [facility] Address [address] [place] [address] Phone Care Team Providers Care Boring Mill Operator For Metal Name Role Phone Ariel Christiansen MD Unavailable [phone] Pamrjit Vogel MD Unavailable [phone] Nicolas Greer MD Primary Care Provider [phone] Keny Saldaña APRN, MARY Unavailable Cristian Dewitt MD Unavailable Kate Kurtz III, MD, Courtney Unavailable [phone] Raghu Green MD Unavailable Warren Osborn MD Unavailable Ale Spain RN Unavailable Unavailable Chetan Do MD Unavailable Reason for Visit * Reason Comments Medication Refill Encounter Details Date Type Department Care Team (Late st Contact Info) Description 06/21/2023 Refill [facility] Family Medicine [facility] #2 [place] [address] Nicolas Greer MD #[address] [address] Medication Refill Social History Tobacco Use Types Packs/Day Years Used Date Smoking Tobacco: Former Cigarettes 0.5 50 1 957 - 2006 Smokeless Tobacco: Never Alcohol Use Standard Drinks/Week Comments No 0 (1 standard drink = 0.6 oz pur e alcohol) [facility] Utilities Answer Date Recorded In the [...] declined 04/04/2023 How often do you attend voodoo or worship serv ices? Patient declined 04/04/2023 Do you belong to any clubs o r organizations such as voodoo groups, unions, fraternal or athletic groups, or [...] Total Score - Questions 1-9 0 09/05 [facility] of Occupat ional Health - [...] Job Start Date Job End Date Retired [employer] Not on file Not on file Not [...] PM CDT Office Visit [facility] Medical [facility] - Endocrinology - [place] #2 [place] [address] Chetan Do MD #[address] [address] 08/14/2024 1:00 PM CDT Office Visit [facility] Medical [facility] - Pulmonology & Sleep Medicine [facility] #2 [place] [address] Raghu Green MD #2 [place] [address] 09/17/2024 1:00 PM CDT [facility] [place] [facility]2 [place] [address] Nicolas Greer MD #[address] [address] documented as of this encounter Visit Diagnoses Diagnosis Depression with anxiety Dysthymic disorder documented in this encounter Additional Health Concerns Assessment Noted Time PHQ-9 Depression Total Score: 0 09/22/19 23 1:48 PM CDT documented as of this encounter Care Teams Boring Mill Operator For Metal Relationship Specialty Start Date End Date Nicolas Greer MD #[address] [address] PCP - General Family Medicine 09/08/21 Ariel Christiansen MD Consulting Physician Cardiovascular Disease - Cardiology 07/19/16 [place] [address] [address] Wire Frame Lampshade Maker Pulmonary Disease 06/18/20 Keny Saldaña APRN, PATRIOT MISSI[employer] AIR DEFENSE ARTILLERY #[address] [address] Nurse Practitioner Advanced Practice Nurse 09/08/21 Cristian Dewitt MD #[address] [address] Consulting Physician Cardiovascular Disease - Cardiology 10/06/21 02/07/24 Yamel Kurtz III, MD #2 [place] [address] Consulting Physician Urology 09/11/22 Raghu Green MD #2 [place] [address] Consulting Physician Pulmonary Disease 01/04/22 Warren Osborn MD #[address] [address] Consulting Physician Colon and Rectal Surgery 05/21/23 Ale Spain, [place] Nurse Continuous Conveyor Screen Drier 09/05/23 Chetan Do MD #[address] [address] Consulting Physician Endocrinology 01/23/24 documented as of this encounter
--- OUTSIDE RECORDS SUMMARY | 2024-03-31 13:16 | XMS_ITS | Encounter Summary ---
Author Organization [facility] Address [address] [place] [address] Phone Care Team Providers Care Bag Shop Worker Name Role Phone Ariel Christiansen MD Unavailable [phone] Parmjit Vogel MD Unavailable [phone] Nicolas Greer MD Primary Care Provider [phone] Keny Saldaña APRN, MARY Unavailable Cristian Dewitt MD Unavailable Kate Kurtz III, MD, Courtney Unavailable [phone] Raghu Green MD Unavailable Warren Osborn MD Unavailable Ale Spain RN Unavailable Unavailable Chetan Do MD Unavailable Reason for Visit * Reason Comments Medication Refill Encounter Details Date Type Department Care Team (Late st Contact Info) Description 12/16/2023 Refill [facility] - Family [facility] #2 [place] [address] Nicolas Greer MD #[address] [address] Medication Refill Social History Tobacco Use Types Packs/Day Years Used Date Smoking Tobacco: Former Cigarettes 0.5 50 1 957 - 2006 Smokeless Tobacco: Never Alcohol Use Standard Drinks/Week Comments No 0 (1 standard drink = 0.6 oz pur e alcohol) [facility] Utilities Answer Date Recorded In the [...] often do you attend chur ch or oriental orthodox services? Never 10/25/2023 Do you belong to any clubs o r organizations such as scientology groups, unions, fraternal or athletic groups, or [...] Total Score - Questions 1-9 2 08/07 [facility] of Occupat ional Health - Occupational Stress [...] place to sleep or slept in a correction (including now)? Patient declined 04/04/2023 Housing Stability [...] any time in the past 12 m [facility], were you homeless or living in a correction (including now)? No 10/25/2023 Education Answer Date [...] Job Start Date Job End Date Retired [employer] Not on file Not on file Not on file documented as of this encounter Plan of Treatment Upcoming Encounters Date Type Department Care Team (Late st Contact Info) Description 04/24/2024 2:00 PM CDT Office Visit [facility] Medical [facility] - Endocrinology - [place] #2 [place] [address] Chetan Do MD #2 [facility] [address] [place] [address] 08/14/2024 1:00 PM CDT Office Visit [facility] Medical [facility] - Pulmonology & Sleep Medicine - [place] #2 [place] [address] Raghu Green MD #2 [facility] [place] [address] 09/17/2024 1:00 PM CDT Office Visit [facility] Medical [facility] - Family Medicine - [place] #2 [place] [address] Nicolas Greer MD #2 [facility] [address] [place] [address] documented as of this encounter Goals Goal Patient Goal Type Associated Problems Recent Progress Patient-Stated? Author Become More Active Patient Goals On track(03/03/19 3:47 PM TOMOGRAPHY TECHNOLOGIST) Yes Ale Spain, RN Note: Follow Up [...] documented as of this encounter Care Teams Bag Shop Worker Relationship Specialty Start Date End Date Nicolas Greer MD #[address] [address] PCP - General Family Medicine 09/08/21 Ariel Christiansen MD Consulting Physician Cardiovascular Disease - Cardiology 07/19/16 [place] [address] [address] Promotions Producer Pulmonary Disease 06/18/20 Keny Saldaña APRN, PROMOTIONS OFFICER #[address] [address] Nurse Practitioner Advanced Practice Nurse 09/08/21 Cristian Dewitt MD #[address] [address] Consulting Physician Cardiovascular Disease - Cardiology 10/06/21 02/07/24 Yamel Kurtz III, MD #2 [place] [address] Consulting Physician Urology 09/11/22 Raghu Green MD #2 [place] [address] Consulting Physician Pulmonary Disease 01/04/22 Warren Osborn MD #[address] [address] Consulting Physician Colon and Rectal Surgery 05/21/23 Ale Spain, RN [place] Nurse Intervention Nurse 09/05/23 Chetan Do MD #[address] [address] Consulting Physician Endocrinology 01/23/24 documented as of this encounter
--- OUTSIDE RECORDS SUMMARY | 2024-03-31 13:16 | XMS_ITS | Encounter Summary ---
Author Organization [facility] Address [address] [place] [address] [place] [address] Phone Care Team Providers Care Ore Grader Name Role Phone Ariel Christiansen MD Unavailable [phone] Parmjit Vogel MD Unavailable [phone] Nicolas Greer MD Primary Care Provider [phone] Keny Saldaña APRN, MARY Unavailable Cristian Dewitt MD Unavailable Kate Kurtz III, MD, Courtney Unavailable [phone] Raghu Green MD Unavailable Warren Osborn MD Unavailable Ale Spain RN Unavailable Unavailable Chetan Do MD Unavailable Reason for Visit * Reason Comments Medication Refill Encounter Details Date Type Department Care Team (Late st Contact Info) Description 07/16/2023 Refill [facility] - Family [facility] #2 [place] [address] Nicolas Greer MD #[address] [address] Medication Refill Social History Tobacco Use Types Packs/Day Years Used Date Smoking Tobacco: Former Cigarettes 0.5 50 1 957 - 2007 Smokeless Tobacco: Never Alcohol Use Standard Drinks/Week Comments No 0 (1 standard drink = 0.6 oz pur e alcohol) [facility] Utilities Answer Date Recorded In the [...] declined 07/17/2023 How often do you attend samaritan or shinto serv ices? Patient declined 07/17/2023 Do you belong to any clubs o r organizations such as samaritan groups, unions, fraternal or athletic groups, or [...] Total Score - Questions 1-9 0 09/05 [facility] of Occupat ional Health - Occupational Stress [...] place to sleep or slept in a fpc (including now)? Patient declined 04/04/2023 Housing Stability Vital Sign Answer Yuri e Recorded In the last 12 months, was t here a time when you were not able to pay the mortgage or rent on time? No 07/17/2023 Number of Times Moved in the Last Year Not on fi le 07/17/2023 At any time in the past 12 m [facility], were you homeless or living in a fpc (including now)? No 07/17/2023 Education Answer Date [...] Job Start Date Job End Date Retired [employer] Not on file Not on file Not on file documented as of this encounter Functional Status * Audit-C Score Answer Date of Assessment Author -1 07/17/2023 1:50 PM CDT [employer] Background * Within the last year, have you been humiliated or emotionally abused in other ways by your partner or ex-partner? Answer Date of Assessment Author No 07/17/2023 1:50 PM CDT [facility] [employer], [facility] Background * Within the last year, have you been afraid of your partner or ex-partner? Answer Date of Assessment Author No 07/17/2023 1:50 PM CDT [facility] Background * Within the last year, have you been raped or forced to have any kind of sexual activity by your partner or ex-partner? Answer Date of Assessment Author No 07/17/2023 1:50 PM CDT [facility] [employer] Background * Within the last year, have you been kicked, hit, slapped, or otherwise physically hurt by your partner or ex-partner? Answer Date of Assessment Author No 07/17/2023 1:50 PM CDT [facility] Background * Q1: How often do you have a drink containing alcohol? Answer Date of Assessment Author Patient declined 07/17/2023 1:50 PM CDT [facility] Background * Q2: How many drinks containing alcohol do you have on a typical day when you are drinking? Answer Date of Assessment Author Patient does not drink 07/17/2023 1:50 PM CDT [employer] [facility], [facility] Background * Q3: How often do you have six or more drinks on one occasion? Answer Date of Assessment Author Patient declined 07/17/2023 1:50 PM CDT [facility] Background * Question Answer Date of [...] AM CDT Medication([facility]) [facility] and [facility] Chronic Medication Refill Standing Order for Pediatricand [...] Dept 04/04/23 Office Visit Nicolas Gre[facility] MD [facility] Showing recent visits within past 182 [...] CDT Office Visit [facility] Medical [facility] - Endocrinology - [place] #2 [place] [address] Chetan Do MD #[address] [address] 08/14/2024 1:00 PM CDT Office Visit [facility] - Pulmonology & Sleep Medicine - [place] #2 [place] [address] Raghu Green MD #2 [place] [address] 09/17/2024 1:00 PM CDT Office Visit [facility] Medical [facility] - Family Medicine - [place] #2 [place] [address] Nicolas Greer MD #[address] [address] documented as of this encounter Visit Diagnoses Diagnosis Controlled type 2 diabetes mellitus without complication (HCC) documented in this encounter Additional Health Concerns Assessment Noted Time PHQ-9 Depression Total Score: 0 09/22/19 23 1:48 PM CDT documented as of this encounter Care Teams Ore Grader Relationship Specialty Start Date End Date Nicolas Greer MD #[address] [address] PCP - General Family Medicine 09/08/21 Ariel Christiansen MD Consulting Physician Cardiovascular Disease - Cardiology 07/19/16 [place] [address] [address] Health Technical Writer Pulmonary Disease 06/18/20 Keny Saldaña APRN, MULTIFOCAL BUTTON GENERATOR #[address] [address] Nurse Practitioner Advanced Practice Nurse 09/08/21 Cristian Dewitt MD #[address] [address] Consulting Physician Cardiovascular Disease - Cardiology 10/06/21 02/07/24 Yamel Kurtz III, MD #2 [place] [address] Consulting Physician Urology 09/11/22 Raghu Green MD #2 [place] [address] Consulting Physician Pulmonary Disease 01/04/22 Warren Osborn MD #[address] [address] Consulting Physician Colon and Rectal Surgery 05/21/23 Ale Spain RN [place] Nurse Vp Ad Sales [place] 09/05/23 Chetan Do MD #[address] [address] Consulting Physician Endocrinology 01/23/24 documented as of this encounter
--- OUTSIDE RECORDS SUMMARY | 2024-03-31 13:16 | XMS_ITS | Encounter Summary ---
Author Organization [facility] Address [address] [place] [address] Phone Care Team Providers Care Health Care Marketing Manager Name Role Phone Ariel Christiansen MD Unavailable [phone] Parmjit Vogel MD Unavailable [phone] Nicolas Greer MD Primary Care Provider [phone] Keny Saldaña APRN, MARY Unavailable Cristian Dewitt MD Unavailable Kate Kurtz III, MD, Courtney Unavailable [phone] Raghu Green MD Unavailable Warren Osborn MD Unavailable Ale Spain RN Unavailable Unavailable Chetan Do MD Unavailable Reason for Visit * Reason Comments Medication Refill Encounter Details Date Type Department Care Team (Late st Contact Info) Description 07/27/2023 [facility]ill [facility] #2 [place] [address] Nicolas Greer MD #[address] [address] Medication Refill Social History Tobacco Use Types Packs/Day Years Used Date Smoking Tobacco: Former Cigarettes 0.5 50 1 957 - 2007 Smokeless Tobacco: Never Alcohol Use Standard Drinks/Week Comments No 0 (1 standard drink = 0.6 oz pur e alcohol) [facility] Utilities Answer Date Recorded In the [...] declined 07/17/2023 How often do you attend nondenominational or religion serv ices? Patient declined 07/17/2023 Do you belong to any clubs o r organizations such as nondenominational groups, unions, fraternal or athletic groups, or [...] Total Score - Questions 1-9 0 09/05 [facility] of Occupat ional Health - [...] place to sleep or slept in a long term (including now)? Patient declined 04/04/2023 Housing Stability Vital Sign Answer Yuri e Recorded In the last 12 months, was t here a time when you were not able to pay the mortgage or rent on time? No 07/17/2023 Number of Times Moved in the Last Year Not on fi le 07/17/2023 At any time in the past 12 m [facility], were you homeless or living in a long term (including now)? No 07/17/2023 Education Answer Date [...] Job Start Date Job End Date Retired [employer] Not on file Not on file [...] Med Name: ALBUTEROL HFA 90 MCG INHALER ([place]] 8.5 g 1 Sig: INHALE 2 PUFFS [...] Betancourt 09/21/22 Office Visit Nicolas Greer MD [facility] Showing recent visits within past 365 days [...] 2:00 PM CDT Office Visit [facility] Medical [facility] - Endocrinology - [place] #2 [facility] [place] [address] Chetan Do MD #[address] [address] 08/14/2024 1:00 PM CDT Office Visit [facility] Medical [facility] - Pulmonology & Sleep Medicine - [place] #2 [facility] [place] [address] Raghu Green MD #2 [facility] [place] [address] 09/17/2024 1:00 PM CDT Office Visit [facility] Medical [facility] - Family Medicine - [place] #2 [place] [address] Nicolas Greer MD #[address] [place] [address] documented as of this encounter Visit Diagnoses Diagnosis Chronic obstructive pulmonary disease with acute exacerbation (HCC) Obstructive chronic bronchitis with exacerbation documented in this encounter Additional Health Concerns Assessment Noted Time PHQ-9 Depression Total Score: 0 09/22/19 1:48 PM CDT documented as of this encounter Care Teams Health Care Marketing Manager Relationship Specialty Start Date End Date Nicolas Greer MD #[address] [address] PCP - General Family Medicine 09/08/21 Ariel Christiansen MD Consulting Physician Cardiovascular Disease - Cardiology 07/19/16 [place] [address] [address] Professor Computer Science Pulmonary Disease 06/18/20 Keny Saldaña APRN, GENERAL SUPERINTENDENT #[address] [address] Nurse Practitioner Advanced Practice Nurse 09/08/21 Cristian Dewitt MD #[address] [address] Consulting Physician Cardiovascular Disease - Cardiology 10/06/21 02/07/24 Yamel Kurtz III, MD #2 [place] [address] Consulting Physician Urology 09/11/22 Raghu Green MD #2 [place] [address] Consulting Physician Pulmonary Disease 01/04/22 Warren Osborn MD #[address] [address] Consulting Physician Colon and Rectal Surgery 05/21/23 Ale Spain RN [place] Nurse Lead Designer 09/05/23 Chetan Do MD #[address] [address] Consulting Physician Endocrinology 01/23/24 documented as of this encounter
--- OUTSIDE RECORDS SUMMARY | 2024-03-31 13:16 | XMS_ITS | Encounter Summary ---
Author Organization [facility] Address [address] [place] [address] Phone Care Team Providers Care Log Chain Worker Name Role Phone Nicolas Greer MD Primary Care Provider [phone] Ariel Christiansen MD Unavailable [phone] Parmjit Vogel MD Unavailable [phone] Nicolas Greer MD Primary Care Provider [phone] Keny Saldaña APRN, AUTOMOBILE OR TRUCK RENTAL DISPATCHER Unavailable Cristian Dewitt MD Unavailable Ale Black RN Unavailable Unavailable Ale Spain RN Unavailable Unavailable Jerardo MCCANN MD, Courtney Unavailable [phone] Raghu Green MD Unavailable Warren Osborn MD Unavailable Ale Spain RN Unavailable Unavailable Chetan Do MD Unavailable Reason for Visit * Reason Comments Medication Refill Encounter Details Date Type Department Care Team (Late st Contact Info) Description 10/27/2020 Refill [facility] Family [facility] #2 [place] [address] Nicolas Greer MD #2 [facility] [address] [place] [address] Medication Refill Social History Tobacco Use Types [...] Job Start Date Job End Date Retired [employer] Not on file Not on file Not [...] CDT She is taking Breztri prescribed by social services specialist. * Telephone Encounter - Keny Saldaña APN, [...] Blepharitis of left lower eyelid, unspecified type [facility] Nicolas Waters MD 4 months ago COPD exacerbation (HCC) [facility] Nicolas Waters MD 4 months ago SOB (shortness of breath) [facility] Nicolas Waters MD 7 months ago Chronic obstructive pulmonary disease, unspecified COPD type (HCC) [facility] Nicolas Waters MD 1 year ago Hyperlipidemia, unspecified hyperlipidemia type [facility] Nicolas Waters MD Upcoming Appointments Future Appointments In 1 month Nicolas Greer MD [facility] Recent and Past Visits Recent Visits [...] CDT Office Visit [facility] - Endocrinology - [place] #2 [place] [address] Chetan Do MD #[address] [address] 08/14/2024 1:00 PM CDT Office Visit [facility] Group - Pulmonology & Sleep Medicine - [place] #2 [place] [address] Raghu Green MD #2 [place] [address] 09/17/2024 1:00 PM CDT Office Visit [facility] - Family [facility] #2 [place] [address] Nicolas Greer MD #[address] [address] documented as of this encounter Visit Diagnoses Diagnosis Pulmonary emphysema, unspecified emphysema type (HCC) documented in this encounter Additional Health Concerns Infection Onset Date Last Indicated Resolved Time COVID - 19 09/02/2021 09/02/2021 09/03/2021 2:05 PM CDT COVID - 19 12/24/2021 12/24/2021 12/26/2021 8:07 AM OCCUPATIONAL THERAPY ASST Respiratory Rule Out - RPA 12/24/2021 12/24/2021 1 02/24/2021 4:41 PM OCCUPATIONAL THERAPY ASST Influenza 12/24/2021 12/24/2021 12/31/2021 12:1 6 AM OCCUPATIONAL THERAPY ASST Assessment Noted Time PHQ-9 Depression Total Score: 0 02/12/19 10:45 AM OCCUPATIONAL THERAPY ASST documented as of this encounter Care Teams Log Chain Worker Relationship Specialty Start Date End Date Nicolas Greer MD #[address] [address] PCP - General Family Medicine 12/22/14 09/07/21 Nicolas Greer MD #[address] [address] PCP - General Family Medicine 09/08/21 Ariel Christiansen MD #[address] [address] Consulting Physician Cardiovascular Disease - Cardiology 07/19/[address] [place] [address] [facility] [address] [place] [address] Correctional Medicine Physician Pulmonary Disease 06/18/20 Keny Saldaña APRN, AUTOMOBILE OR TRUCK RENTAL DISPATCHER #[address] [address] Nurse Practitioner Advanced Practice Nurse 09/08/21 Cristian Dewitt MD #[address] [address] Consulting Physician Cardiovascular Disease - Cardiology 10/06/21 02/07/24 Ale Spain, RN [place] Exterior Door Installer 03/15/22 02/12/23 Ale Spain, RN [place] Nurse Exterior Door Installer 03/15/22 02/13/23 Yamel Kurtz III, MD #2 [place] [address] Consulting Physician Urology 09/11/22 Raghu Green MD #2 [place] [address] Consulting Physician Pulmonary Disease 01/04/22 Warren Osborn MD #[address] [address] Consulting Physician Colon and Rectal Surgery 05/21/23 Ale Spain, RN [place] Nurse Exterior Door Installer 09/05/23 Chetan Do MD #[address] [phone] Consulting Physician Endocrinology 01/23/24 documented as of this encounter
--- OUTSIDE RECORDS SUMMARY | 2024-03-31 13:16 | XMS_ITS | Encounter Summary ---
Author Organization [facility] Address [address] [place] [address] Phone Care Team Providers Care Hand Edger Name Role Phone Ariel Christiansen MD Unavailable [phone] Parmjit Vogel MD Unavailable [phone] Nicolas Greer MD Primary Care Provider [phone] Keny Saldaña APRN, MARY Unavailable Cristian Dewitt MD Unavailable Kate Kurtz III, MD, Courtney Unavailable [phone] Raghu Green MD Unavailable Warren Osborn MD Unavailable Ale Spain RN Unavailable Unavailable Chetan Do MD Unavailable Reason for Visit * Reason Comments Medication Refill Encounter Details Date Type Department Care Team (Late st Contact Info) Description 09/21/2023 Refill [facility] Family [facility] #2 [place] [address] Nicolas Greer MD #[address] [address] Medication Refill Social History Tobacco Use Types Packs/Day Years Used Date Smoking Tobacco: Former Cigarettes 0.5 50 1 957 - 2006 Smokeless Tobacco: Never Alcohol Use Standard Drinks/Week Comments No 0 (1 standard drink = 0.6 oz pur e alcohol) [facility] Utilities Answer Date Recorded In the [...] week 09/05/2023 How often do you attend islam or advent serv ices? Never 09/05/2023 Do you belong to any clubs o r organizations such as islam groups, unions, fraternal or athletic groups, or [...] Total Score - Questions 1-9 2 08/07 [facility] of Occupat ional Health - Occupational Stress [...] place to sleep or slept in a long-term (including now)? Patient declined 04/04/2023 Housing Stability [...] time in the past 12 m [facility], were you homeless or living in a long-term (including now)? No 09/05/2023 Education Answer Date [...] Job Start Date Job End Date Retired [employer] Not on file Not on file Not on file documented as of this encounter Plan of Treatment Upcoming Encounters Date Type Department Care Team (Late st Contact Info) Description 04/24/2024 2:00 PM CDT Office Visit [facility] Medical [facility] - Endocrinology - [place] #2 [place] [address] Chetan Do MD #2 [facility] [address] [place] [address] 08/14/2024 1:00 PM CDT Office Visit [facility] Medical [facility] - Pulmonology & Sleep Medicine - [place] #2 [place] [address] Raghu Green MD #2 [facility] [place] [address] 09/17/2024 1:00 PM CDT Office Visit [facility] Medical [facility] - Family Medicine - [place] #2 [place] [address] Nicolas Greer MD #2 [facility] [address] [place] [address] documented as of this encounter Goals Goal Patient Goal Type Associated Problems Recent Progress Patient-Stated? Author Become More Active Patient Goals On track(03/03/19 25 3:47 PM NUCLEAR EQUIPMENT DESIGN ENGINEER) Yes Ale Spain, RN Note: Follow Up [...] documented as of this encounter Care Teams Hand Edger Relationship Specialty Start Date End Date Nicolas Greer MD #2 [facility] [address] [place] [address] PCP - General Family Medicine 09/08/21 Ariel Christiansen MD Consulting Physician Cardiovascular Disease - Cardiology 07/19/16 [place] [address] [address] Poly Operator Pulmonary Disease 06/18/20 Keny Saldaña APRN, [place] #[address] [address] Nurse Practitioner Advanced Practice Nurse 09/08/21 Cristian Dewitt MD #[address] [address] Consulting Physician Cardiovascular Disease - Cardiology 10/06/21 02/07/24 Yamel Kurtz III, MD #2 [place] [address] Consulting Physician Urology 09/11/22 Raghu Green MD #2 [place] [address] Consulting Physician Pulmonary Disease 01/04/22 Warren Osborn MD #2 [facility] [address] [place] [address] Consulting Physician Colon and Rectal Surgery 05/21/23 Ale Spain RN [place] Nurse Barrel Rifler Hook 09/05/23 Chetan Do MD #[address] [address] Consulting Physician Endocrinology 01/23/24 documented as of this encounter
--- OUTSIDE RECORDS SUMMARY | 2024-03-31 13:16 | XMS_ITS | Encounter Summary ---
Author Organization [facility] Address [address] [place] [place] [address] Phone Care Team Providers Care Senior Design Engineering Specialist Name Role Phone Ariel Christiansen MD Unavailable [phone] Parmjit Vogel MD Unavailable [phone] Nicolas Greer MD Primary Care Provider [phone] Keny Saldaña APRN, MARY Unavailable Cristian Dewitt MD Unavailable Kate Kurtz III, MD, Courtney Unavailable [phone] Raghu Green MD Unavailable Warren Osborn MD Unavailable Ale Spain RN Unavailable Unavailable Chetan Do MD Unavailable Reason for Visit * Reason Comments Medication Refill Encounter Details Date Type Department Care Team (Late st Contact Info) Description 08/16/2023 Refill [facility] Family [facility] #2 [place] [address] Nicolas Greer MD #[address] [address] Medication Refill Social History Tobacco Use Types Packs/Day Years Used Date Smoking Tobacco: Former Cigarettes 0.5 50 1 957 - 2007 Smokeless Tobacco: Never Alcohol Use Standard Drinks/Week Comments No 0 (1 standard drink = 0.6 oz pur e alcohol) [facility] Utilities Answer Date Recorded In the [...] declined 07/17/2023 How often do you attend taoist or religion serv ices? Patient declined 07/17/2023 Do you belong to any clubs o r organizations such as taoist groups, unions, fraternal or athletic groups, or [...] Total Score - Questions 1-9 0 09/05 [facility] of Occupat ional Health - Occupational Stress [...] place to sleep or slept in a [place] health care facility (including now)? Patient declined 04/04/2023 Housing Stability Vital Sign Answer Yuri e Recorded In the last 12 months, was t here a time when you were not able to pay the mortgage or rent on time? No 07/17/2023 Number of Times Moved in the Last Year Not on fi le 07/17/2023 At any time in the past 12 m [facility], were you homeless or living in a [place] health care facility (including now)? No 07/17/2023 Education Answer Date [...] Job Start Date Job End Date Retired [email or web address] Not on file Not on file Not on file documented as of this encounter Plan of Treatment Upcoming Encounters Date Type Department Care Team (Late st Contact Info) Description 04/24/2024 2:00 PM CDT Office Visit [facility] Medical [facility] - Endocrinology - [place] #2 [place] [address] Chetan Do MD #2 [facility] [address] [place] [address] 08/14/2024 1:00 PM CDT Office Visit [facility] - Pulmonology & Sleep Medicine - [place] #2 [place] [address] Raghu Green MD #2 [place] [address] 09/17/2024 1:00 PM CDT Office Visit [facility] Family Medicine - [place] #2 [facility] [place] [address] Nicolas Greer MD #[address] [place] [address] documented as of this encounter Visit Diagnoses Diagnosis Mixed stress and urge urinary incontinence Mixed incontinence urge and stress (male)(female) documented in this encounter Additional Health Concerns Assessment Noted Time PHQ-9 Depression Total Score: 0 09/22/19 23 1:48 PM CDT documented as of this encounter Care Teams Senior Design Engineering Specialist Relationship Specialty Start Date End Date Nicolas Greer MD #[address] [address] PCP - General Family Medicine 09/08/21 Ariel Christiansen MD Consulting Physician Cardiovascular Disease - Cardiology 07/19/16 [place] [address] [address] Water Tender Pulmonary Disease 06/18/20 Keny Saldaña APRN, MALT HOUSE KILN OPERATOR #[address] [address] Nurse Practitioner Advanced Practice Nurse 09/08/21 Cristian Dewitt MD #[address] [address] Consulting Physician Cardiovascular Disease - Cardiology 10/06/21 02/07/24 Yamel Kurtz III, MD #2 [place] [address] Consulting Physician Urology 09/11/22 Raghu Green MD #2 [place] [address] Consulting Physician Pulmonary Disease 01/04/22 Warren Osborn MD #[address] [address] Consulting Physician Colon and Rectal Surgery 05/21/23 Ale Spain, [place] Nurse Postdoctoral Scholar 09/05/23 Chetan Do MD #[address] [address] Consulting Physician Endocrinology 01/23/24 documented as of this encounter
--- OUTSIDE RECORDS SUMMARY | 2024-03-31 13:16 | XMS_ITS | Encounter Summary ---
Author Organization [facility] Address [address] [place] [address] Phone Care Team Providers Care Research Test Engine Operator Name Role Phone Ariel Christiansen MD Unavailable [phone] Parmjit Vogel MD Unavailable [phone] Nicolas Greer MD Primary Care Provider [phone] Keny Saldaña APRN, MARY Unavailable Cristian Dewitt MD Unavailable Kate Kurtz III, MD, Courtney Unavailable [phone] Raghu Green MD Unavailable Warren Osborn MD Unavailable Ale Spain RN Unavailable Unavailable Chetan Do MD Unavailable Reason for Visit * Reason Comments Medication Refill Encounter Details Date Type Department Care Team (Late st Contact Info) Description 07/20/2023 Refill [facility] Family [facility] #2 [place] [address] Nicolas Greer MD #[address] [address] Medication Refill Social History Tobacco Use Types Packs/Day Years Used Date Smoking Tobacco: Former Cigarettes 0.5 50 1 957 - 2007 Smokeless Tobacco: Never Alcohol Use Standard Drinks/Week Comments No 0 (1 standard drink = 0.6 oz pur e alcohol) [facility] Utilities Answer Date Recorded In [...] declined 07/17/2023 How often do you attend gnosticism or adventist serv ices? Patient declined 07/17/2023 Do you belong to any clubs o r organizations such as gnosticism groups, unions, fraternal or athletic groups, or [...] Total Score - Questions 1-9 0 09/05 [facility] of Occupat ional Health - [...] place to sleep or slept in a care home (including now)? Patient declined 04/04/2023 Housing Stability Vital Sign Answer Yuri e Recorded In the last 12 months, was t here a time when you were not able to pay the mortgage or rent on time? No 07/17/2023 Number of Times Moved in the Last Year Not on fi le 07/17/2023 At any time in the past 12 m [facility], were you homeless or living in a care home (including now)? No 07/17/2023 Education Answer [...] Job Start Date Job End Date Retired [employer] Not on file Not on file Not on file documented as of this encounter Miscellaneous Notes * Telephone Encounter - Nicolle Funk RN - 07/20/2023 12:42 PM CDT Medication([facility]) [facility] Medication Refill Standing Order for [...] Betancourt 09/21/22 Office Visit Nicolas Greer MD [facility] Serafin Showing recent visits within past 365 [...] Visit [facility] Medical Group - Endocrinology - [place] #2 [place] [address] Chetan Do MD #[address] [address] 08/14/2024 1:00 PM CDT Office Visit [facility] Medical Group - Pulmonology & Sleep Medicine - [place] #2 [place] [address] Raghu Green MD #2 [place] [address] 09/17/2024 1:00 PM CDT [facility]2 [place] [address] Nicolas Greer MD #[address] [address] documented as of this encounter Visit Diagnoses Not on filedocumented in this encounter Additional Health Concerns Assessment Noted Time PHQ-9 Depression Total Score: 0 09/22/19 23 1:48 PM CDT documented as of this encounter Care Teams Research Test Engine Operator Relationship Specialty Start Date End Date Nicolas Greer MD #[address] [address] PCP - General Family Medicine 09/08/21 Ariel Christiansen MD Consulting Physician Cardiovascular Disease - Cardiology 07/19/16 [place] [address] [address] Relief Pilot Pulmonary Disease 06/18/20 Keny Saldaña, SHINGLE GRADER, PLUNGER SCOOP OPERATOR #[address] [address] Nurse Practitioner Advanced Practice Nurse 09/08/21 Cristian Dewitt MD #[address] [address] Consulting Physician Cardiovascular Disease - Cardiology 10/06/21 02/07/24 Yamel Kurtz III, MD #2 [place] [address] Consulting Physician Urology 09/11/22 Raghu Green MD #2 [place] [address] Consulting Physician Pulmonary Disease 01/04/22 Warren Osborn MD #[address] [address] Consulting Physician Colon and Rectal Surgery 05/21/23 Ale Spain, [place] Nurse Game Preserve Manager 09/05/23 Chetan Do MD #[address] [address] Consulting Physician Endocrinology 01/23/24 documented as of this encounter
--- OUTSIDE RECORDS SUMMARY | 2024-03-31 13:16 | XMS_ITS | Encounter Summary ---
Author Organization [facility] Address [address] [place] [address] Phone Care Team Providers Care Allergist Immunologist Name Role Phone Nicolas Greer MD Primary Care Provider [phone] Ariel Christiansen MD Unavailable [phone] Parmjit Vogel MD Unavailable [phone] Nicolas Greer MD Primary Care Provider [phone] Keny Saldaña APRN, WARDROBE TECHNICIAN Unavailable Cristian Dewitt MD Unavailable Ale Black RN Unavailable Unavailable Ale Spain RN Unavailable Unavailable Jerardo MCCANN MD, Courtney Unavailable [phone] Raghu Green MD Unavailable Warren Osborn MD Unavailable Ale Spain RN Unavailable Unavailable Chetan Do MD Unavailable Reason for Visit * Reason Comments Medication Refill Encounter Details Date Type Department Care Team (Late st Contact Info) Description 11/17/2020 [facility]ill [facility] #2 [place] [address] Nicolas Greer MD #2 [facility] [address] [place] [address] Medication Refill Social History Tobacco Use Types [...] Job Start Date Job End Date Retired [employer] Not on file Not on file Not [...] 1 year ago Hyperlipidemia, unspecified hyperlipidemia type [facility] Nicolas Greer MD Upcoming Appointments Future Appointments In 1 month Nicolas Greer MD [facility], [facility] NECKTIE CENTRALIZING MACHINE OPERATOR - Recent and Past Visits Recent [...] Office Visit [facility] Medical [facility] - Endocrinology - [place] #2 [place] [address] Chetan Do MD #[address] [address] 08/14/2024 1:00 PM CDT Office Visit [facility] - Pulmonology & Sleep Medicine [facility] #2 [place] [address] Raghu Green MD #2 [place] [address] 09/17/2024 1:00 PM CDT Office Visit [facility] #2 [place] [address] Nicolas Greer MD #[address] [address] documented as of this encounter Visit Diagnoses Diagnosis Pulmonary emphysema, unspecified emphysema type (HCC) documented in this encounter Additional Health Concerns Infection Onset Date Last Indicated Resolved Time COVID - 19 09/02/2021 09/02/2021 09/03/2021 2:05 PM CDT COVID - 19 12/24/2021 12/24/2021 12/26/2021 8:07 AM CHIEF PASSENGER SHIP STEWARD/STEWARDESS Respiratory Rule Out - RPA 12/24/2021 12/24/2021 1 02/24/2021 4:41 PM CHIEF PASSENGER SHIP STEWARD/STEWARDESS Influenza 12/24/2021 12/24/2021 12/31/2021 12:1 6 AM CHIEF PASSENGER SHIP STEWARD/STEWARDESS Assessment Noted Time PHQ-9 Depression Total Score: 0 02/12/19 10:45 AM CHIEF PASSENGER SHIP STEWARD/STEWARDESS documented as of this encounter Care Teams Allergist Immunologist Relationship Specialty Start Date End Date Nicolas Greer MD #[address] [address] PCP - General Family Medicine 12/22/14 09/07/21 Nicolas Greer MD #[address] [address] PCP - General Family Medicine 09/08/21 Ariel Christiansen MD #[address] [address] Consulting Physician Cardiovascular Disease - Cardiology 07/19/16 [place] [phone] [address] Cocoa Bean Roaster Pulmonary Disease 06/18/20 Keny Saldaña APRN, WARDROBE TECHNICIAN #[address] [address] Nurse Practitioner Advanced Practice Nurse 09/08/21 Cristian Dewitt MD #[address] [address] Consulting Physician Cardiovascular Disease - Cardiology 10/06/21 02/07/24 Ale Spain, RN [place] General Internal Medicine Doctor 03/15/22 02/12/23 Ale Spain, RN [place] Nurse General Internal Medicine Doctor 03/15/22 02/13/23 Yamel Kurtz III, MD #2 [place] [address] Consulting Physician Urology 09/11/22 Raghu Green MD #2 [place] [address] Consulting Physician Pulmonary Disease 01/04/22 Warren Osborn MD #[address] [address] Consulting Physician Colon and Rectal Surgery 05/21/23 Ale Spain, RN [place] Nurse General Internal Medicine Doctor 09/05/23 Chetan Do MD #[address] [address] Consulting Physician Endocrinology 01/23/24 documented as of this encounter
--- OUTSIDE RECORDS SUMMARY | 2024-03-31 13:16 | XMS_ITS | Encounter Summary ---
Author Organization [facility] Address [address] [place] [address] Phone Care Team Providers Care Platform Stapler Name Role Phone Nicolas Greer MD Primary Care Provider [phone] Ariel Christiansen MD Unavailable [phone] Parmjit Vogel MD Unavailable [phone] Nicolas Greer MD Primary Care Provider [phone] Keny Saldaña APRN, PURCHASE ANALYST Unavailable Cristian Dewitt MD Unavailable Ale Black RN Unavailable Unavailable Ale Spain RN Unavailable Unavailable Jerardo MCCANN MD, Courtney Unavailable [phone] Raghu Green MD Unavailable Warren Osborn MD Unavailable Ale Spain RN Unavailable Unavailable Chetan Do MD Unavailable Reason for Visit * Reason Comments Medication Refill Encounter Details Date Type Department Care Team (Late st Contact Info) Description 07/29/2020 Refill [facility] #2 [place] [address] Nicolas Greer MD [address] [address] Medication Refill Social History Tobacco Use Types [...] Job Start Date Job End Date Retired [employer] Not on file Not on file Not [...] ago Pulmonary emphysema, unspecified emphysema type (HCC) [facility] Keny Crowder APN, MARY Upcoming Appointments Future Appointments In 1 month Nicolas Greer MD [facility] Adela Betancourt [facility] SUPERVISOR PROCESS TESTING - Recent and Past Visits Recent Visits Date Type Provider Dept 06/21/20 Office Visit Nicolas Greer MD [facility] 06/08/20 Office Visit Nicolas Greer MD [facility] 03/11/20 Office Visit Nicolas Greer MD [facility] 10/14/19 Office Visit Nicolas Greer MD [facility] 07/14/19 Office Visit Keny Saldaña APN, CNP [facility] [place] 05/22/19 Telemedicine Keny Saldaña APN, MARY [facility] Showing recent visits within past 460 days [...] Visits 1 month ago COPD exacerbation (HCC) [facility] Nicolas Waters MD 1 month ago SOB (shortness of breath) [facility] Nicolas Esquivel MD 4 months ago Chronic obstructive pulmonary disease, unspecified COPD type (HCC) [facility] Nicolas Esquivel MD 9 months ago Hyperlipidemia, unspecified hyperlipidemia type [facility] Nicolas Waters MD 1 year ago Pulmonary emphysema, unspecified emphysema type (HCC) [facility] [place] APN, CNP Upcoming Appointments Future Appointments In 1 month Nicolas Greer MD [facility] [place] [facility] SUPERVISOR PROCESS TESTING - Recent and Past Visits Recent Visits Date Type Provider Dept 06/21/20 Office Visit Nicolas Greer MD [facility] 06/08/20 Office Visit Nicolas Greer MD [facility] 03/11/20 Office Visit Nicolas Greer MD [facility] 10/14/19 Office Visit Nicolas Greer MD [facility] 07/14/19 Office Visit Keny Saldaña APN, CNP [facility] [place] 05/22/19 Telemedicine Keny Saldaña APN, CNP [facility] Showing recent visits within past 460 days [...] Visits 1 month ago COPD exacerbation (HCC) [facility] Nicolas Waters MD 1 month ago SOB (shortness of breath) [facility] Nicolas Waters MD 4 months ago Chronic obstructive pulmonary disease, unspecified COPD type (HCC) [facility] Nicolas Esquivel MD 9 months ago Hyperlipidemia, unspecified hyperlipidemia type [facility] Nicolas Waters MD 1 year ago Pulmonary emphysema, unspecified emphysema type (HCC) [facility] Keny Crowder APN, CNP Upcoming Appointments Future Appointments In 1 month Nicolas Greer MD [facility] - Family Medicine - [place], [facility] SUPERVISOR PROCESS TESTING - Recent and Past Visits Recent Visits [...] 2:00 PM CDT Office Visit [facility] - Endocrinology - [place] #2 [place] [address] Chetan Do MD #[address] [address] 08/14/2024 1:00 PM CDT Office Visit [facility] - Pulmonology & Sleep Medicine - [place] #2 [place] [address] Raghu Green MD #2 [place] [address] 09/17/2024 1:00 PM CDT Office Visit [facility] #2 [place] [address] Nicolas Greer MD #[address] [address] documented as of this encounter Visit Diagnoses Diagnosis Pulmonary emphysema, unspecified emphysema type (HCC) Controlled type 2 diabetes mellitus without complication (HCC) documented in this encounter Additional Health Concerns Infection Onset Date Last Indicated Resolved Time COVID - 19 09/02/2021 09/02/2021 09/03/2021 2:05 PM CDT COVID - 19 12/24/2021 12/24/2021 12/26/2021 8:07 AM DROP TESTER Respiratory Rule Out - RPA 12/24/2021 12/24/2021 1 02/24/2021 4:41 PM DROP TESTER Influenza 12/24/2021 12/24/2021 12/31/2021 12:1 6 AM DROP TESTER Assessment Noted Time PHQ-9 Depression Total Score: 0 02/12/19 10:45 AM DROP TESTER documented as of this encounter Care Teams Platform Stapler Relationship Specialty Start Date End Date Nicolas Greer MD #[address] [address] PCP - General Family Medicine 12/22/14 09/07/21 Nicolas Greer MD #[address] [address] PCP - General Family Medicine 09/08/21 Ariel Christiansen MD #[address] [address] Consulting Physician Cardiovascular Disease - Cardiology 07/19/16 [place] [address] [address] Fitness Studies Teacher Pulmonary Disease 06/18/20 Keny Saldaña APRN, PURCHASE ANALYST #[address] [address] Nurse Practitioner Advanced Practice Nurse 09/08/21 Cristian Dewitt MD #[address] [address] Consulting Physician Cardiovascular Disease - Cardiology 10/06/21 02/07/24 Ale Spain, RN [place] Counter Sales Representative 03/15/22 02/12/23 Ale Spain, RN [place] Nurse Counter Sales Representative 03/15/22 02/13/23 Yamel Kurtz III, MD #2 [place] [address] Consulting Physician Urology 09/11/22 Raghu Green MD #2 [place] [address] Consulting Physician Pulmonary Disease 01/04/22 Warren Osborn MD #[address] [address] Consulting Physician Colon and Rectal Surgery 05/21/23 Ale Spain, RN [place] Nurse Counter Sales Representative 09/05/23 Chetan Do MD #[address] [phone] Consulting Physician Endocrinology 01/23/24 documented as of this encounter
--- OUTSIDE RECORDS SUMMARY | 2024-03-31 13:16 | XMS_ITS | Encounter Summary ---
Author Organization [facility] Address [address] [place] [address] [place] [address] Phone Care Team Providers Care Spring Coiler Name Role Phone Ariel Christiansen MD Unavailable [phone] Parmjit Vogel MD Unavailable [phone] Nicolas Greer MD Primary Care Provider [phone] Keny Saldaña APRN, MARY Unavailable Cristian Dewitt MD Unavailable Kate Kurtz III, MD, Courtney Unavailable [phone] Raghu Green MD Unavailable Warren Osborn MD Unavailable Ale Spain RN Unavailable Unavailable Chetan Do MD Unavailable Reason for Visit * Reason Comments Medication Refill Encounter Details Date Type Department Care Team (Late st Contact Info) Description 07/05/2023 Refill [facility] #2 [place] [address] Nicolas Greer MD #[address] [address] Medication Refill Social History Tobacco Use Types Packs/Day Years Used Date Smoking Tobacco: Former Cigarettes 0.5 50 1 957 - 2006 Smokeless Tobacco: Never Alcohol Use Standard Drinks/Week Comments No 0 (1 standard drink = 0.6 oz pur e alcohol) [facility] Utilities Answer Date Recorded In the past [...] How often do you attend mosque or jew serv ices? Patient declined 04/04/2023 Do you [...] Total Score - Questions 1-9 0 09/05 [facility] - [...] Job Start Date Job End Date Retired [employer] Not on file Not on file Not [...] Description 04/24/2024 2:00 PM CDT Office Visit [facility] - Endocrinology - [place] #2 [place] [address] Chetan Do MD #[address] [address] 08/14/2024 1:00 PM CDT Office Visit [facility] - Pulmonology & Sleep Medicine - [place] #2 [place] [address] Raghu Green MD #2 [place] [address] 09/17/2024 1:00 PM CDT Office Visit [facility] - Family Medicine - [place] #2 [place] [address] Nicolas Greer MD #[address] [address] documented as of this encounter Visit Diagnoses Diagnosis Controlled type 2 diabetes mellitus without complication (HCC) documented in this encounter Additional Health Concerns Assessment Noted Time PHQ-9 Depression Total Score: 0 09/22/19 23 1:48 PM CDT documented as of this encounter Care Teams Spring Coiler Relationship Specialty Start Date End Date Nicolas Greer MD #[address] [address] PCP - General Family Medicine 09/08/21 Ariel Christiansen MD Consulting Physician Cardiovascular Disease - Cardiology 07/19/16 [place] [address] [address] Operations Specialist Pulmonary Disease 06/18/20 Keny Saldaña APRN, ANODE MACHINE OPERATOR #[address] [address] Nurse Practitioner Advanced Practice Nurse 09/08/21 Cristian Dewitt MD #[address] [address] Consulting Physician Cardiovascular Disease - Cardiology 10/06/21 02/07/24 Yamel Kurtz III, MD #2 [place] [address] Consulting Physician Urology 09/11/22 Raghu Green MD #2 [place] [address] Consulting Physician Pulmonary Disease 01/04/22 Warren Osborn MD #[address] [address] Consulting Physician Colon and Rectal Surgery 05/21/23 Ale Spain, RN [place] Nurse Medical Record Specialist 09/05/23 Chetan Do MD #[address] [phone] Consulting Physician Endocrinology 01/23/24 documented as of this encounter
[2024-03-31 14:02] LABS: Albumin Level 3.7 g/dL (3.4-5.0); Anion Gap 5 mmol/L (4-12); Blood Urea Nitrogen 20 mg/dL (7-18); Calcium 9.7 mg/dL (8.5-10.1); Carbon Dioxide 39 mmol/L (21-32); Chloride 98 mmol/L (98-108); Estimated Glomerular Filt Rate 57; Glucose 113 mg/dL (70-99); Osmolality Calculated 297 mOsm/kg (285-295); Phosphorus 3.2 mg/dL (2.6-4.7); Potassium 4.4 mmol/L (3.5-5.1); Sodium 142 mmol/L (136-145)
[2024-04-01 14:04] LABS: Parathyroid Intact 100 pg/mL (16-77)
== END 2024-03-31 11:14 | disposition home or self-care (01) ==
LOC: CHSLAB 11:18
DX: N18.31 Chronic kidney disease, stage 3a (principal); M10.032 Idiopathic gout, left wrist; E83.52 Hypercalcemia
CPT/HCPCS: 36415; 80069; 82043; 82306; 82652; 83540; 83550; 83970; 84550; 85027

== ENCOUNTER 2024-09-29 13:25 | Outpatient (CLI) | payer MEDICARE, SELFPAY ==
--- OUTSIDE RECORDS SUMMARY | 2024-09-29 13:35 | XMS_ITS | Encounter Summary ---
Author Organization [facility] Address [address] [place] [address] [place] [place] [address] Phone Care Team Providers Care Fruit And Vegetable Inspector Name Role Phone Ariel Christiansen MD Unavailable [phone] Parmjit Vogel MD Unavailable [phone] Nicolas Greer MD Primary Care Provider [phone] Keny Saldaña APRN, CUSTOM CAR BUILDER Unavailable Cristian Dewitt MD Unavailable Ale Black RN Unavailable Unavailable Ale Spain RN Unavailable Unavailable Jerardo MCCANN MD, Courtney Unavailable [phone] Raghu Green MD Unavailable Warren Osborn MD Unavailable Ale Spain RN Unavailable Unavailable Chetan Do MD Unavailable Reason for Visit * Reason Comments Medication Refill Encounter Details Date Type Department Care Team (Late st Contact Info) Description 03/22/2022 Refill [facility] #2 [place] [address] Nicolas Greer MD #[address] [address] Medication Refill Social History Tobacco Use Types [...] Job Start Date Job End Date Retired [employer] Not on file Not on file Not on file COVID-19 Exposure Response Date Recorded In the last 10 days, have yo u been in contact with someone who was confirmed or suspected to have Coronavirus/COVID-19? No / Unsure 03/22/2022 2:20 PM UNIVERSITY REGISTRAR documented as of this encounter Miscellaneous Notes * Telephone Encounter - Karoline Martinez RN - 03/22/2022 1:05 PM UNIVERSITY REGISTRAR Medication warning. Per nursing clinical judgement, provider [...] [facility] 01/09/22 Telemedicine Keny Saldaña APRN, CUSTOM CAR BUILDER [facility] 12/19/21 Office Visit Nicolas Greer MD [facility] 09/08/21 Office Visit Keny Saldaña APRN, CUSTOM CAR BUILDER [facility] [place] 08/03/21 Telemedicine Nicolas Greer MD [facility] 07/21/21 Telemedicine Nicolas Greer MD [facility] 04/28/21 Telemedicine Nicolas Greer MD [facility] Showing recent visits within past 365 days and meeting all other requirements Today's Visits Date Type Provider Dept 03/22/22 Appointment Nicolas Greer MD [facility] Showing today's visits and meeting all other [...] no refill protocol information for this order ERSITY REGISTRAR documented in this encounter Plan of Treatment Upcoming Encounters Date Type Department Care Team (Late st Contact Info) Description 02/17/2025 1:00 PM UNIVERSITY REGISTRAR Office Visit [facility] Group - Family Medicine - [place] #2 [place] [address] Nicolas Greer MD #[address] [address] 03/23/2025 2:00 PM UNIVERSITY REGISTRAR Office Visit [facility] - Pulmonology & Sleep Medicine [facility] #2 [place] [address] Raghu Green MD #2 [place] [address] documented as of this encounter Visit Diagnoses Diagnosis Edema, unspecified type documented in this encounter Additional Health Concerns Assessment Noted Time PHQ-9 Depression Total Score: 0 02/12/19 20 10:45 AM UNIVERSITY REGISTRAR documented as of this encounter Care Teams Fruit And Vegetable Inspector Relationship Specialty Start Date End Date Nicolas Greer MD #[address] [address] PCP - General Family Medicine 09/08/21 Ariel Christiansen MD Consulting Physician Cardiovascular Disease - Cardiology 07/19/16 [place] [address] [address] Privacy Compliance Manager Pulmonary Disease 06/18/20 Keny Saldaña APRN, CUSTOM CAR BUILDER #[address] [address] Nurse Practitioner Advanced Practice Nurse 09/08/21 Cristian Dewitt MD #[address] [address] Consulting Physician Cardiovascular Disease - Cardiology 10/06/21 02/07/24 Ale Spain, [place] Umbrella Frame Maker 03/15/22 02/12/23 Ale Spain RN [place] Nurse Umbrella Frame Maker 03/15/22 02/13/23 Yamel Kurtz III, MD #2 [place] [address] Consulting Physician Urology 09/11/22 Raghu Green MD #2 [place] [address] Consulting Physician Pulmonary Disease 01/04/22 Warren Osborn MD #[address] [address] Consulting Physician Colon and Rectal Surgery 05/21/23 Ale Spain RN [place] Nurse Umbrella Frame Maker 09/05/23 09/04/24 Chetan Do MD #[address] [phone] Consulting Physician Endocrinology 01/23/24 documented as of this encounter
--- OUTSIDE RECORDS SUMMARY | 2024-09-29 13:35 | XMS_ITS | Clinical Summary ---
Author Organization [facility] Address [address] [address] Phone Care Team Providers Care Resume Writer Name Role Phone Ariel Christiansen MD Unavailable [phone] Parmjit Vogel MD Unavailable [phone] Nicolas Greer MD Primary Care Provider [phone] Jerardo MCCANN MD, Courtney Unavailable [phone] Raghu Green MD Unavailable Warren Osborn MD Unavailable Chetan Do MD Unavailable Allergies Active Allergy Reactions Criticality Noted Date Comments Vitamin D (Calciferol) Other (see Comments) 01/03/2022 Will stop due to hypercalcemia Medications Nebulizers (PORTABLE COMPRESSOR NEBULIZER) [facility] Use as directed with nebulizer medications. 1 Each 0 Active OXYGEN CONCENTRATOR 3 L/min by Nasal route continuous. may use portable tanks when concentrator is unavailable Active benzonatate (Tessalon Perles) 100 MG Capsule Take 1 Capsule by mouth 3 times daily as needed for Cough for up to 10 days. 30 Capsule 3 Active Additional Information Patient not taking.Reported on 09/17/2024 fluticasone (FLONASE) 50 MCG/ACT Suspension USE 1 OR 2 SPRAYS IN EACH NOSTRIL DAILY 16 mL 1 3 Active traMADol (ULTRAM) 50 MG TabletIndication s:Chronic pain of both knees TAKE ONE TABLET BY MOUTH EVERY EIGHT HOURS NEEDED FOR PAIN 90 Tablet 3 Active cinacalcet (SENSIPAR) 30 MG Tablet 2 times daily. 3 Active vitamin b-12 (CYANOCOBALAMIN) 100 MCG Tablet TAKE TWO TABLETS BY MOUTH DAILY #0200 180 Tablet 1 4 Active Additional Information Patient not taking.Reported on 09/17/2024 True Metrix Blood Glucose Test StripIndications :Controlled type 2 diabetes mellitus without complication USE FOR TESTING TWICE A DAY DIRECTED 100 Strip 3 4 Active magnesium oxide (MAG-OX) 400 MG Tablet Take 400 mg by mouth daily. Active Benzonatate 200 MG Capsule Take 1 Capsule by mouth 3 times daily as needed for Cough for up to 210 days. 90 Capsule 6 4 Active levothyroxine (SYNTHROID) 137 MCG Tablet TAKE ONE TABLET BY MOUTH DAILY #1000 90 Tablet 3 4 Active folic acid (FOLVITE) 1 MG Tablet TAKE ONE TABLET BY MOUTH DAILY #0100 90 Tablet 3 4 Active furosemide (LASIX) 20 MG Tablet TAKE ONE TABLET BY MOUTH DAILY #1000 90 Tablet 3 4 Active rOPINIRole (REQUIP) 0.25 MG Tablet TAKE ONE TABLET BY MOUTH NIGHTLY #0001 90 Tablet 3 4 Active alendronate (FOSAMAX) 70 MG Tablet Take 1 Tablet by mouth every 7 days. 12 Tablet 1 4 Active allopurinol (ZYLOPRIM) 100 MG Tablet TAKE TWO TABLETS BY MOUTH DAILY #2000 180 Tablet 2 5 Active Aspirin Low Dose 81 MG Tablet Delayed Response TAKE 1 TABLET BY MOUTH DAILY. #1000 90 Tablet 2 5 Active potassium chloride CR (KLORCON) 10 MEQ Tablet Controlled Release TAKE TWO TABLETS BY MOUTH DAILY #2000 180 Tablet 2 5 Active lovastatin (MEVACOR) 40 MG Tablet TAKE ONE TABLET BY MOUTH DAILY #0001 90 Tablet 2 5 Active sertraline (ZOLOFT) 100 MG TabletIndication s:Depression with anxiety,Depressi on, unspecified depression type Take 1.5 Tablets by mouth daily. 90 Tablet 3 5 Active trospium (SANCTURA) 20 MG TabletIndication s:Mixed stress and urge urinary incontinence Take 1 Tablet by mouth 2 times daily. 180 Tablet 1 5 Active Budeson-Glycopyr rol-Formoterol (Breztri Aerosphere) 160-9-4.8 MCG/ACT Aerosol take 2 Puffs by inhalation every morning and evening. 10.7 g 2 5 Active torsemide (DEMADEX) 20 MG TabletIndication s:Edema, unspecified type TAKE ONE TABLET BY MOUTH DAILY #0100 90 Tablet 1 5 Active albuterol 108 (90 Base) MCG/ACT Aerosol Solution INHALE TWO (2) PUFFS EVERY FOUR HOURS NEEDED FOR WHEEZING 8.5 g 1 5 Active esomeprazole (NexIUM) 40 MG CAPSULE DELAYED RELEASE TAKE ONE CAPSULE BY MOUTH EVERY MORNING BEFORE BREAKFAST #1000 90 Capsule 1 5 Active ipratropium-albu terol (DUO-NEB) 0.5-2.5 (3) MG/3ML SolutionIndicati ons:Chronic obstructive pulmonary disease with acute exacerbation (HCC) INHALE THE CONTENTS OF ONE VIAL PER NEBULIZATION FOUR TIMES A DAY DIRECTED 360 mL 2 5 Active vitamin b-12 (CYANOCOBALAMIN) 500 MCG Tablet Take 2 Tablets by mouth daily. 180 Tablet 1 5 Active botulinum Toxin Type A (Botox) 100 units Recon Soln (100 unit) Active Active Problems Problem Noted Date Diagnosed Date Obesity (BMI 30-39.9) 09/17/2024 Therapeutic drug monitoring 09/17/2024 Staghorn calculus 05/31/[address] nodules on CT 03/20/2024 Osteoporosis [...] Encounters Date Type Department Care Team Description 09/26/2024 2:21 PM CDT - 09/26/2024 11:59 PM CDT Hospital Encounter [facility] Respiratory Therapy [address] [place] [address] Raghu Green MD Discharge Disposition: Discharged to home or Selfcare 09/26/2024 Travel 09/18/2024 [facility] [address] [place] [address] Nicolas Greer MD Follow-up 09/17/2024 1:30 PM CDT Lab [facility] [address] [address] [facility] Hypothyroidism, unspecified type; B12 deficiency Discharge Disposition: Discharged to home or Selfcare 09/17/2024 1:00 PM CDT Office Visit [facility] Medical [facility] - Family Medicine [facility] [address] [place] [address] Nicolas Greer MD Hypothyroidism, unspecified type (Primary Dx); Therapeutic drug monitoring; Obesity (BMI 30-39.9); B12 deficiency Discharge Disposition: Discharged to home or Selfcare 09/16/2024 2:45 PM CDT Office Visit [facility] - Pulmonology & Sleep Medicine [facility] [address] [place] [address] Raghu Green MD Other emphysema (HCC) (Primary Dx); Chronic respiratory failure with hypoxia and hypercapnia (HCC); Multiple lung nodules on CT; Essential hypertension; Restless legs syndrome (RLS); Tobacco abuse; Lung nodule, multiple Discharge Disposition: Discharged to home or Selfcare 09/16/2024 Travel 09/03/2024 Patient Outreach [facility] [address] [place] [address] Ale Spain RN Care Management (LIBERTAD RN Graduated) 08/16/20[facility] [place] [address] Nicolas Greer MD Medication Refill 07/30/2024 [facility] [place] [address] Nicolas Greer MD Medication Refill 07/30/2024 Patient Outreach [facility] [address] [place] [address] Radha Coffman Care Management (Monthly monitoring call-(July)) 07/23/2024 [facility] [place] [address] Nicolas Greer MD Medication Refill 07/16/2024 Patient Outreach [facility] [address] [place] [address] Radha Coffman Care Management (Monthly monitoring call-(July)) 07/02/2024 Patient Outreach [facility] [address] [place] [address] Ale Spain, RN Care Management ([facility] ) 07/01/2024 [facility] [place] [address] Nicolas Greer MD Medication Refill from Last 3 Months Immunizations Immunization Administration [...] Daughter Aneurysm Father Hypertension Father Cancer Mother [place] uterus Heart Attack Mother [place] Hypertension Mother [place] Ovarian Cancer Mother [place] Other-comment Sister 2 Diabetes Son Hypertension Son Rheumatoid Arthritis Neg Hx Relation Name Status Comments Brother 1 Diego Brother 2 Brother 3 Brother 4 Brother 5 Brother 6 Brother 7 Daughter Alive Father Mother Graciela Sister 1 Alive Sister 2 Son Alive Social History Tobacco Use Types Packs/Day Years Used Date Smoking Tobacco: Former Cigarettes 0.5 50 1 957 - 2006 Smokeless Tobacco: Never Tobacco Cessation:Counseling Given: Yes Alcohol Use Standard Drinks/Week Comments No 0 (1 standard drink = 0.6 oz pur e alcohol) [facility] COHities Answer Date Recorded In the past 12 months has [employer] electric, gas, oil, or water [employer] threatened to shut off services in your home? No 03/03/2024 Social Connection and Isolation Panel Answer Date Recorded In a typical week, how many times do you talk on the phone with family, friends, or neighbors? Twice a week 03/03/2024 How often do you get together with friends or re latives? Twice a week 03/03/2024 How often do you attend jain or evangelical serv ices? Never 03/03/2024 Do you belong to any clubs o r organizations such as jain groups, unions, fraternal or athletic groups, or [...] Recorded Total Score - Questions 1-9 0 06/05 [facility] - Occupational Stress Questionnaire Answer Date Recorded [...] time in the past 12 m [facility], were you homeless or living in a [place] health care facility (including now)? No 03/03/2024 Education Answer Date [...] Industry Job Start Date Job End Date [employer] Not on file Not on file Not on file Last Filed Vital Signs Vital Sign Reading Time Taken Comments Blood Pressure 120/100 09/17/2024 12:53 PM CDT Pulse 91 09/17/2024 12:53 PM CDT Temperature 36.4 C (97.6 F) 09/17/2024 12:53 PM CDT Respiratory Rate 20 09/16/2024 3:01 PM CDT Oxygen Saturation 84% 09/17/2024 12:53 PM CDT Inhaled Oxygen Concentration - - Weight 105.2 kg (232 lb) 09/17/2024 12:53 PM CDT Height 152.4 cm (5') 09/17/2024 12:53 PM CDT Body Mass Index 45.31 09/17/2024 12:53 PM CDT Plan of Treatment Upcoming Encounters Date Type Department Care Team (Late st Contact Info) Description 02/17/2025 1:00 PM SITE PLANNER Office Visit [facility] Medical Group - Family Medicine [facility] [address] [place] [address] Nicolas Greer MD [address] [address] 03/23/2025 2:00 PM SITE PLANNER Office Visit [facility] - Pulmonology & Sleep Medicine [facility] [address] [place] [address] Raghu Green MD [address] [place] [phone] Health Maintenance Due Date Last Done Comments Diabetes: Foot Exam 1950 TdaP Immunization 1950 Zoster Immunization (1 of 2) 01/27/1998 Diabetes: Eye Exam 06/08/2021 06/09/2019, 06/12/2017 Respiratory Syncytial Virus (RSV) Immunization (Adult) (1 - 1-dose 75+ series) 01/27/2023 SARS-COV-2 Immunization ( season) 2023 01/26/2021, 05/07/2020, 04/09/2020 Diabetes: Hemoglobin A1c 09/21/2024 025, 03/24/2024, 07/18/2023, Additional history exists Influenza Immunization (#1) 10/06/202412/06, 12/20/2020, 10/14/2019, Additional history exists Diabetes: Nephropathy Screening 01/24/2025 01/25/2024, 07/18/2023, 12/24/2021, Additional history exists DEXA Bone Density 11/06/2025 11/07/2023, , 12/19/2017 Hepatitis C Virus (HCV) Screening Completed 02/22/2016 Pneumococcal Immunization (50+ years) Completed 11/01/2016, 11/01/2016, 11/17/2015 Pneumococcal Immunization Combined Discontinued 11/01/2016, 11/01/2016, 11/17/2015 Mammogram Discontinued 10/12/2021, 09/2020, 12/24/2018, Additional history exists Colonoscopy Discontinued 06/14/2023, 10/2023, 07/20/2017 Colorectal Cancer Screening Discontinued Cologuard Discontinued Hepatitis B Immunization Aged Out No longer eligible based on patient's age to complete this topic Human Papillomavirus (HPV) Immunization Aged Out No longer eligible based on patient's age to complete this topic Immunochemical Fecal Occult Blood Discontinued Meningococcal Immunization (ACWY) Aged Out No longer eligible based on patient's age to complete this topic Rotavirus Immunization Aged Out No lo nger eligible based on patient's age to complete this topic Medical Devices Implanted Type Area Licensing Analyst Device Identifier Shelf Expiration Date Model / Serial / Lot Clip 360 Resolution 235cm - [id number] Implanted:Qty: 2 on 07/20/2017 by Hua Daily DO at [facility] IMPLANT N/A: Other [employer] 04/15/2020 [id number] / [id number] / [id number] Description:DISTAL ASCENDING COLON Procedures Procedure Name Priority Date/Time Associated Diagnosis Comments COMPLETE PFT W + W/O BRONCHODILATOR Routine 09/26/2024 Other emphysema (HCC) THYROID SCREEN WITH REFLEX Routine 09/17/2024 1:50 PM CDT Hypothyroidism, unspecified type ANTI THYROID PEROXIDASE ANTIBODY Routine 09/17/2024 1:50 PM CDT Hypothyroidism, unspecified type THYROXINE (T4) FREE Routine 09/17/2024 1 :50 PM CDT Hypothyroidism, unspecified type VITAMIN B12 Routine 09/17/2024 1:50 PM CDT B12 deficiency THYROID SCREEN WITH REFLEX Routine 09/17/2024 1:50 PM CDT Hypothyroidism, unspecified type UROLOGY CONSULT 07/14/2024 12:00 AM CDT HEMOGLOBIN A1C W/ ESTIMATED GLUCOSE Routine 03/24/2024 12:00 AM SITE PLANNER Hyperglycemia CMP (COMPREHENSIVE METABOLIC PANEL) Routine 01/25/2024 2:31 PM SITE PLANNER Osteoporosis without current pathological fracture, unspecified osteoporosis type Hypercalcemia CARLYN BONE DENSITOMETRY AXIAL SKELETON Routine 11/07/2023 1:18 PM CDT Postmenopausal CARLYN SCREENING BILATERAL DIGITAL W CAD Routine 10/12/2021 3:18 PM CDT Encounter for screening mammogram for malignant neoplasm of breast HM DILATED EYE EXAM Routine 06/12/2017 HEPATITIS C ANTIBODY Routine 02/22/2016 from Last 3 Months or Most Recently Relevant to Health Maintenance Results * (ABNORMAL) THYROID SCREEN WITH REFLEX (09/17/2024 1:50 PM CDT) TSH 7.415(H) 0.300 - 5.000 mIU/L 09/17/2024 4:16 PM CDT [facility] Blood Venipuncture / Unknown 09/17/2024 1:50 PM CDT 09/17/2024 1:50 PM CDT Nicolas Greer MD CHEMISTRY ORDERABLES Jacqueline l Result [facility] [address] [place] [address] * (ABNORMAL) VITAMIN B12 (09/17/2024 1:50 PM CDT) VITAMIN B12 1,263(H) 213 - 816 pg/mL 09/17/2024 4:22 PM CDT [facility] Blood Venipuncture / Unknown 09/17/2024 1:50 PM CDT 09/17/2024 1:50 PM CDT Result [facility] Nicolas Greer MD CHEMISTRY ORDERABLES Jacqueline l Result [facility] [address] [place] [address] * THYROXINE (T4) FREE (09/17/2024 1:50 PM CDT) T4 FREE 0.7 0.7 - 1.9 ng/dL 09/17/2024 4:47 PM CDT [facility] Blood Venipuncture / Unknown 09/17/2024 1:50 PM CDT 09/17/2024 1:50 PM CDT Nicolas Greer MD CHEMISTRY ORDERABLES Jacqueline l Result [facility] [address] [place] [address] * (ABNORMAL) ANTI THYROID PEROXIDASE ANTIBODY (09/17/2024 1:50 PM CDT) Thyroid peroxidase antibody 97(H) <6 IU/mL 09/18/2024 12:34 AM CDT [facility] Blood Venipuncture / Unknown 09/17/2024 1:50 PM CDT 09/17/2024 1:50 PM CDT Nicolas Greer MD CHEMISTRY ORDERABLES Jacqueline l Result Performing Organization Address [facility] Co de Phone Number [facility] [address] [place] [address], [place] * UROLOGY CONSULT (07/14/2024 12:00 AM CDT) 07/14/2024 Provider Scan GENERIC SCAN ORDERS CONSULT Jacqueline mosley Result Performing Organization Address City/[facility]/ZIP Co de Phone Number SCAN * HEMOGLOBIN A1C W/ ESTIMATED GLUCOSE (03/24/2024 12:00 AM SITE PLANNER) Pathologist [facility] HGB-A1C 5.4 SCAN Blood Nicolas Greer MD CHEMISTRY ORDERABLES Jacqueline l Result SCAN * (ABNORMAL) CMP (COMPREHENSIVE METABOLIC PANEL) (01/25/2024 2:31 PM SITE PLANNER) SODIUM 143 136 - 145 mmol/L 01/25/2024 3:16 PM SITE PLANNER [facility] POTASSIUM 3.9 3.5 - 5.1 mmol/L 01/25/2024 3:16 PM SITE PLANNER [facility] CHLORIDE 96(L) 98 - 107 mmol/L 01/25/2024 3:16 PM [facility] CO2, VENOUS 38(H) 22 - 30 mmol/L 01/25/2024 3:16 PM [facility] ANION GAP 12.9 <18.0 mmol/L 01/25/2024 3:16 PM [facility] GLUCOSE 130(H) 70 - 99 mg/dL 01/25/2024 3:16 PM [facility] BUN 20 10 - 20 mg/dL 01/25/2024 3:16 PM [facility] CREATININE, BLOOD 1.01(H) 0.60 - 1.00 mg/dL 01/25/2024 3:16 PM [facility] BUN/CREATININE RATIO 20 12 - 20 ratio 01/25/2024 3:16 PM [facility] TOTAL PROTEIN 7.1 6.3 - 8.2 g/dL 01/25/2024 3:16 PM [facility] ALBUMIN 4.3 3.5 - 5.0 g/dL 01/25/2024 3:16 PM [facility] A/G RATIO 1.5 1.0 - 2.2 01/25/2024 3:16 PM [facility] CALCIUM 10.7(H) 8.7 - 10.5 mg/dL 01/25/2024 3:16 PM [facility] T BILI 0.4 0.2 - 1.2 mg/dL 01/25/2024 3:16 PM [facility] SGOT (AST) 14 5 - 34 U/L 01/25/2024 3:16 PM [facility] SGPT (ALT) 13 0 - 55 U/L 01/25/2024 3:16 PM [facility] ALKALINE PHOSPHATASE 88 40 - 150 U/L 01/25/2024 3:16 PM [facility] IS THE PATIENT REQUIRED TO BE FASTING? No 01/25/2024 3:16 PM [facility] GFR, ESTIMATED 58(L) >=60 01/25/2024 3:16 PM SITE PLANNER [facility] Comment: Creatinine Clearance is the preferred criteria for selecting drug dose adjustments in renally impaired patients. The GFR is provided as additional pertinent clinical information. GFR is reported in mL/min/1.73 sq m. Calculation based on the Chronic Kidney Disease Epidemiology Collaboration (CKD- EPI) equation refit without adjustment for race. GFR, EST. >60 >=60 024 3:16 PM SITE PLANNER [facility] GFR, EST. NONAFRICAN 53(L) >=60 01/25/2024 3:16 PM SITE PLANNER [facility] Blood Venipuncture / Unknown 01/25/2024 2:31 PM SITE PLANNER 01/25/2024 2:47 PM SITE PLANNER us Chetan Do MD CHEMISTRY ORDERABLES Final Resul t [facility] [address] [place] [address] * [facility] BONE DENSITOMETRY AXIAL SKELETON (11/07/2023 1:18 [...] Narrative 11/07/2023 1:44 PM CDT EXAM DESCRIPTION: [facility] BONE DENSITOMETRY AXIAL SKELETON REASON FOR STUDY: 73 y/o year old F with given history of: Post menopausal status. History secondary osteoporosis and COPD. Patient takes a multivitamin. Licensing Analyst/Model: [employer] (S/N [id number]) CLINICAL INFORMATION: Current height: 60 inches Maximum [...] Electronically signed by Melissa Crowe M.D. TW: VERO Report ID: [id number] Reading Location: [id number] Procedure Note Melissa Crowe MD - 11/07/2023 EXAM DESCRIPTION: [facility] BONE DENSITOMETRY AXIAL SKELETON REASON FOR STUDY: 73 y/o year old F with given history of: Post menopausal status. History secondary osteoporosis and COPD. Patient takes a multivitamin. Licensing Analyst/Model: [employer] (S/N [id number]) CLINICAL INFORMATION: Current height: 60 inches Maximum [...] Melissa Crowe M.D. TW: TW Report ID: [id number] Reading Location: [id number] IMPRESSION: Osteoporosis. REFERENCE: Bone mineral density: T-Score: [...] to Prevention and Treatment of Osteoporosis (http://www.nof.org/professionals/clinical-guidelines) Nicolas Dalton Greer MD IMG DEXA ORDERABLES Final Result * CARLYN SCREENING BILATERAL DIGITAL W CAD [...] Comparison is made to exams dated: 03/22/2015 [facility], 12/15/2013, and 09/19/2012 [facility]. BREAST TISSUE:There are scattered fibroglandular densities in [...] exam. Electronically signed by: Zelalem fox/justice:10/12/2021 17:06:55 Director Of Distance Learning(s): Dandy Cervantes)(M), [facility] letter sent: Normal Exam Reading location: [...] Comparison is made to exams dated: 03/22/2015 [facility], 12/15/2013, and 09/19/2012 [facility]. BREAST TISSUE:There are scattered fibroglandular densities in [...] exam. Electronically signed by: Zelalem fox/justice:10/12/2021 17:06:55 Director Of Distance Learning(s): Luis Carlos Cervantes(Sasha)(M), [facility] letter sent: Normal Exam Reading location: [facility] BI-RADS: 1 Negative us Keny Saldaña APRN, ARMORED VEHICLE OFFICER IMG MAMMO ORDERA BLES Final Result * [facility] DILATED EYE EXAM (06/12/2017) us Not On File Provider PROCEDURE/MINOR SURGICAL OR DERABLES Final Result * HEPATITIS C ANTIBODY (02/22/2016) Blood specimen (specimen) us Dale Hale MD CHEMISTRY ORDERABLES Final Res ult from Last 3 Months or Most Recently Relevant to Health Maintenance Insurance MEDICARE AARP AARP Advance Directives Documents on File Type Date Recorded Patient Peritoneal Dialysis Registered Nurse Expl anation Other Advance Directive 04/25/2017 9:18 [...] Relationship Healthcare Agent Relationship Communication Steve Burrows [facility] Healthcare POA Care Teams Resume Writer Relationship Specialty Start Date End Date Nicolas Greer MD [address] [address] PCP - General Family Medicine 09/08/21 Ariel Christiansen MD Consulting Physician Cardiovascular Disease - Cardiology 07/19/16 [place] [id number] Tech Pulmonary Disease 06/18/20 Yamel Kurtz III, MD [address] [place] [address] Consulting Physician Urology 09/11/22 Raghu Green MD [address] [place] [address] Consulting Physician Pulmonary Disease 01/04/22 Warren Osborn MD #[address] [address] Consulting Physician Colon and Rectal Surgery 05/21/23 Chetan Do MD #[address] [address] Consulting Physician Endocrinology 01/23/24
--- OUTSIDE RECORDS SUMMARY | 2024-09-29 13:35 | XMS_ITS | Encounter Summary ---
Author Organization [facility] Address [address] [place] [address] Phone Care Team Providers Care Manager Environmental Health And Safety Name Role Phone Ariel Christiansen MD Unavailable [phone] Parmjit Vogel MD Unavailable [phone] Nicolas Greer MD Primary Care Provider [phone] Keny Saldaña APRN, EM PHYSICIAN Unavailable Cristian Dewitt MD Unavailable Ale Black RN Unavailable Unavailable Ale Spain RN Unavailable Unavailable Jerardo MCCANN MD, Courtney Unavailable [phone] Raghu Green MD Unavailable Warren Osborn MD Unavailable Ale Spain RN Unavailable Unavailable Chetan Do MD Unavailable Reason for Visit * Reason Comments Medication Refill Encounter Details Date Type Department Care Team (Late st Contact Info) Description 07/05/2022 Refill [facility] #2 [place] [address] Nicolas Greer MD #[address] [address] Medication Refill Social History Tobacco Use Types [...] Job Start Date Job End Date Retired [employer] Not on file Not on file Not [...] [place] 01/09/22 Telemedicine Keny Saldaña APRN, MARY [facility] [place] 12/19/21 Office Visit Nicolas Greer MD [facility] [place] 09/08/21 Office Visit Keny Saldaña APRN, EM PHYSICIAN [facility] [place] 08/03/21 Telemedicine Nicolas Greer MD [facility] [...] st Contact Info) Description 02/17/2025 1:00 PM BOW REHAIRER Office Visit [facility] Medical [facility] - Family Medicine - [place] #2 [place] [address] Nicolas Greer MD #[address] [address] 03/23/2025 2:00 PM BOW REHAIRER Office Visit [facility] Medical [facility] - Pulmonology & Sleep Medicine [facility] #2 [place] [address] Raghu Green MD #2 [place] [address] documented as of this encounter Visit Diagnoses Diagnosis Chronic pain of both knees documented in this encounter Additional Health Concerns Assessment Noted Time PHQ-9 Depression Total Score: 0 02/12/19 20 10:45 AM BOW REHAIRER documented as of this encounter Care Teams Manager Environmental Health And Safety Relationship Specialty Start Date End Date Nicolas Greer MD #[address] [address] PCP - General Family Medicine 09/08/21 Ariel Christiansen MD Consulting Physician Cardiovascular Disease - Cardiology 07/19/16 [place] [address] [facility] [address] [place] [address] Marine Rigger Pulmonary Disease 06/18/20 Keny Saldaña APRN, EM PHYSICIAN #[address] [address] Nurse Practitioner Advanced Practice Nurse 09/08/21 Cristian Dewitt MD #[address] [address] Consulting Physician Cardiovascular Disease - Cardiology 10/06/21 02/07/24 Ale Spain, RN [place] Machine Tool Dresser 03/15/22 02/12/23 Ale Spain, RN [place] Nurse Machine Tool Dresser 03/15/22 02/13/23 Yamel Kurtz III, MD #2 [place] [address] Consulting Physician Urology 09/11/22 Raghu Green MD #2 [place] [address] Consulting Physician Pulmonary Disease 01/04/22 Warren Osborn MD #[address] [address] Consulting Physician Colon and Rectal Surgery 05/21/23 Ale Spain RN [place] Nurse Machine Tool Dresser 09/05/23 09/04/24 Chetan Do MD #[address] [address] Consulting Physician Endocrinology 01/23/24 documented as of this encounter
--- OUTSIDE RECORDS SUMMARY | 2024-09-29 13:35 | XMS_ITS | Encounter Summary ---
Author Organization [facility] Address [address] [place] [address] Phone Care Team Providers Care Frozen Meat Cutter Name Role Phone Ariel Christiansen MD Unavailable [phone] Parmjit Vogel MD Unavailable [phone] Nicolas Greer MD Primary Care Provider [phone] Keny Saldaña APRN, REFERENCE DATA EXPERT Unavailable Cristian Dewitt MD Unavailable Ale Black RN Unavailable Unavailable Ale Spain RN Unavailable Unavailable Jerardo MCCANN MD, Courtney Unavailable [phone] Raghu Green MD Unavailable Warren Osborn MD Unavailable Ale Spain RN Unavailable Unavailable Chetan Do MD Unavailable Reason for Visit * Reason Comments Medication Refill Encounter Details Date Type Department Care Team (Late st Contact Info) Description 11/09/2021 Refill [facility] #2 [place] [address] Nicolas Greer MD #[address] [address] Medication Refill Social History Tobacco Use Types [...] Job Start Date Job End Date Retired [employer] Not on file Not on file Not [...] Dept 09/08/21 Office Visit Keny Saldaña APRN, REFERENCE DATA EXPERT [facility] [place] 08/03/21 Telemedicine Nicolas Greer MD [facility] [place] 07/21/21 Telemedicine Nicolas Greer MD [facility] [place] 04/28/21 Telemedicine Nicolas Greer MD [facility] [place] 12/20/20 Office Visit Nicolas Greer MD [facility] Showing recent visits within past 365 days and meeting all other requirements Future Appointments Date Type Provider Dept 12/19/21 Appointment Nicolas Greer MD [facility] Showing future appointments within next 90 days and meeting all other requirements documented in this encounter Plan of Treatment Upcoming Encounters Date Type Department Care Team (Late st Contact Info) Description 02/17/2025 1:00 PM CLINICAL TRIALS NURSE Office Visit [facility] Medical [facility] - Family Medicine - [place] #2 [place] [address] Nicolas Greer MD #[address] [address] 03/23/2025 2:00 PM CLINICAL TRIALS NURSE Office Visit [facility] Medical [facility] - Pulmonology & Sleep Medicine [facility] #2 [place] [address] Raghu Green MD #2 [place] [address] documented as of this encounter Visit Diagnoses Not on filedocumented in this encounter Additional Health Concerns Infection Onset Date Last Indicated Resolved Time COVID - 19 12/24/2021 12/24/2021 12/26/2021 8:07 AM CLINICAL TRIALS NURSE Respiratory Rule Out - RPA 12/24/2021 12/24/2021 1 02/24/2021 4:41 PM CLINICAL TRIALS NURSE Influenza 12/24/2021 12/24/2021 12/31/2021 12:1 6 AM CLINICAL TRIALS NURSE Assessment Noted Time PHQ-9 Depression Total Score: 0 02/12/19 10:45 AM CLINICAL TRIALS NURSE documented as of this encounter Care Teams Frozen Meat Cutter Relationship Specialty Start Date End Date Nicolas Greer MD #[address] [address] PCP - General Family Medicine 09/08/21 Ariel Christiansen MD Consulting Physician Cardiovascular Disease - Cardiology 07/19/16 [place] [id number] [address] Avionics Systems Repairer Pulmonary Disease 06/18/20 Keny Saldaña APRN, REFERENCE DATA EXPERT #[address] [address] Nurse Practitioner Advanced Practice Nurse 09/08/21 Cristian Dewitt MD #[address] [address] Consulting Physician Cardiovascular Disease - Cardiology 10/06/21 02/07/24 Ale Spain, W[place] Plant Engineer 03/15/22 02/12/23 Ale Spain RN [place] Nurse Plant Engineer 03/15/22 02/13/23 Yamel Kurtz III, MD #2 [place] [address] Consulting Physician Urology 09/11/22 Raghu Green MD #2 [place] [address] Consulting Physician Pulmonary Disease 01/04/22 Warren Osborn MD #[address] [address] Consulting Physician Colon and Rectal Surgery 05/21/23 Ale Spain RN [place] Nurse Plant Engineer 09/05/23 09/04/24 Chetan Do MD #[address] [phone] Consulting Physician Endocrinology 01/23/24 documented as of this encounter
--- OUTSIDE RECORDS SUMMARY | 2024-09-29 13:35 | XMS_ITS | Clinical Summary ---
Author Organization [facility] Address [address] [address] Care Team Providers Care Stud Setter Name Role Phone Nicolas Greer MD MPH Primary Care Provider [phone] Allergies No known active allergies Medications albuterol (2.5 MG/3ML) 0.083% nebulizer solution Active allopurinol (ZYLOPRIM) 100 MG tablet Take 200 mg by mouth 1 (one) time each [...] MG tablet Take 0.25 mg by mouth 1 (one) time each day Active sertraline (ZOLOFT) 50 MG tablet Take 150 mg by mouth 1 (one) time each [...] DAILY #1000 90 tablet 1 4 Active Additional Information Patient not taking.Reported on 04/01/2024 trospium (SANCTURA) 20 MG tablet Take 20 mg by mouth in the morning and 20 mg in the evening. Active predniSONE (DELTASONE) 10 MG tablet TAKE 5 TABLETS BY MOUTH ON DAY 1. THEN DECREASE DOSE BY 1 TABLET DAILY UNTIL GONE 15 tablet 1 4 Active Additional Information Patient not taking.Reported on 04/01/2024 cinacalcet (SENSIPAR) 30 MG tablet Take 1 tablet (30 mg total) by mouth 1 (one) time each day 90 tablet 2 5 Active Additional Information Patient taking differently:30 mg Oral2 times daily, Reported on 04/01/2024 esomeprazole (NexIUM) [address] capsule Take 40 mg by mouth 4 Active magnesium oxide (MAG-OX) 400 MG tablet TAKE ONE TABLET BY MOUTH DAILY #1000 90 tablet 1 5 Active Active Problems Problem Noted Date Diagnosed Date Acute nontraumatic kidney injury 03/24/2022 Chronic kidney disease stage 2 03/24/2022 Essential hypertension 03/24/2022 Hypercalcemia 03/24/2022 Severe chronic obstructive pulmonary disease 02/ Type 2 diabetes mellitus without complication Family History Medical History Relation Comments Cancer [...] Sign Reading Time Taken Comments Blood Pressure 100/70 04/01/2024 4:20 PM OUTREACH CONSULTANT Pulse 88 04/01/2024 4:20 PM OUTREACH CONSULTANT Temperature 36.1 C (97 F) 04/01/2024 4:20 PM OUTREACH CONSULTANT Respiratory Rate 16 04/01/2024 4:20 PM OUTREACH CONSULTANT Oxygen Saturation 80% 04/01/2024 4:20 PM OUTREACH CONSULTANT Inhaled Oxygen Concentration - - Weight 106 kg (234 lb) 04/01/2024 4:20 PM OUTREACH CONSULTANT Height 167.6 cm (5' 6) 10/30/2023 3:10 PM CDT Body Mass Index 37.77 10/30/2023 3:10 PM CDT Plan of Treatment Upcoming Encounters Date Type Department Care Team (Late st Contact Info) Description 10/08/2024 1:00 PM CDT Office Visit [facility] [address] [facility] [address] [place] [address] Jorge Rabago MD [address] [facility] [address] [place] [address] Health Maintenance Due Date Last Done Comments Diabetes: Ophthalmology Exam 04/27/2019 Diabetes: Pedal Pulse Checked 04/27/2019 Diabetes: Sensory Foot Exam 04/27/2019 Diabetes: Visual Foot Exam 04/27/2019 Diabetes: Hemoglobin A1C 10/18/2023 024, 12/25/2021, 03/22/2015 Influenza Vaccine (#1) 2024 2, 12/20/2020, 10/14/2019, Additional history exists Pneumococcal Vaccine: 50+ Years Completed 11/01/2016, 11/17/2015 Pneumococcal Vaccine: Peds (0 to 5 Years) and At-Risk Patients (6 to 49 Years) Discontinued 11/01/2016, 11/17/2015 Hepatitis B Vaccine Aged Out No longe r eligible based on patient's age to complete this topic Insurance Medicare [facility] Advance Directives Documents on File Type Date Recorded Patient Manager Digital Ad Operations Expl anation Advance Care Planning 08/24/2022 5:10 PM Care Teams Stud Setter Relationship Specialty Start Date End Date Nicolas rGeer MD MPH [address] [address] PCP - General Family Medicine 01/04/22
--- OUTSIDE RECORDS SUMMARY | 2024-09-29 13:35 | XMS_ITS | Encounter Summary ---
Author Organization [facility] Address [address] [place] [address] Phone Care Team Providers Care Echocardiography Technologist Name Role Phone Nicolas Greer MD Primary Care Provider [phone] Ariel Christiansen MD Unavailable [phone] Parmjit Vogel MD Unavailable [phone] Nicolas Greer MD Primary Care Provider [phone] Keny Saldaña APRN, PACKER OPERATOR AUTOMATIC Unavailable Cristian Dewitt MD Unavailable Ale Black RN Unavailable Unavailable Ale Spain RN Unavailable Unavailable Jerardo MCCANN MD, Courtney Unavailable [phone] Raghu Green MD Unavailable Warren Osborn MD Unavailable Ale Spain RN Unavailable Unavailable Chetan Do MD Unavailable Reason for Visit * Reason Comments Medication Refill Encounter Details Date Type Department Care Team (Late st Contact Info) Description 02/22/2021 Refill [facility] Family [facility] #2 [place] [address] Nicolas Greer MD #[address] [place] [id number] Medication Refill Social History Tobacco Use Types [...] Industry Job Start Date Job End Date [employer] Not on file Not on file Not [...] [facility] Showing recent visits within past 182 days and meeting all other requirements Future Appointments Date Type Provider Dept 03/22/21 Appointment Nicolas Greer MD [facility] Showing future appointments within next 90 days and meeting all other requirements Passed - Patient has established therapy with SSRI for at least 6 months NG CHAIR SEAT CUSHION TRIMMER documented in this encounter Plan of Treatment Upcoming Encounters Date Type Department Care Team (Late st Contact Info) Description 02/17/2025 1:00 PM DINING CHAIR SEAT CUSHION TRIMMER Office Visit [facility] - Family Medicine - [place] #2 [place] [address] Nicolas Greer MD #[address] [address] 03/23/2025 2:00 PM DINING CHAIR SEAT CUSHION TRIMMER [facility] #2 [place] [address] Raghu Green MD #2 [place] [address] documented as of this encounter Visit Diagnoses Diagnosis Depression with anxiety Dysthymic disorder documented in this encounter Additional Health Concerns Infection Onset Date Last Indicated Resolved Time COVID - 19 09/02/2021 09/02/2021 09/03/2021 2:05 PM CDT COVID - 19 12/24/2021 12/24/2021 12/26/2021 8:07 AM DINING CHAIR SEAT CUSHION TRIMMER Respiratory Rule Out - RPA 12/24/2021 12/24/2021 1 02/24/2021 4:41 PM DINING CHAIR SEAT CUSHION TRIMMER Influenza 12/24/2021 12/24/2021 12/31/2021 12:1 6 AM DINING CHAIR SEAT CUSHION TRIMMER Assessment Noted Time PHQ-9 Depression Total Score: 0 02/12/19 20 10:45 AM DINING CHAIR SEAT CUSHION TRIMMER documented as of this encounter Care Teams Echocardiography Technologist Relationship Specialty Start Date End Date Nicolas Greer MD #[address] [address] PCP - General Family Medicine 12/22/14 09/07/21 Nicolas Greer MD #[address] [address] PCP - General Family Medicine 09/08/21 Ariel Christiansen MD #[address] [address] Consulting Physician Cardiovascular Disease - Cardiology 07/19/16 [place] [address] [address] Typo Machine Operator Pulmonary Disease 06/18/20 Keny Saldaña, CERTIFIED PERSONAL CHEF, PACKER OPERATOR AUTOMATIC #[address] [address] Nurse Practitioner Advanced Practice Nurse 09/08/21 Cristian Dewitt MD #[address] [address] Consulting Physician Cardiovascular Disease - Cardiology 10/06/21 02/07/24 Ale Spain, RN [place] Video Tape Editor 03/15/22 02/12/23 Ale Spain, RN [place] Nurse Video Tape Editor 03/15/22 02/13/23 Yamel Kurtz III, MD #2 [place] [address] Consulting Physician Urology 09/11/22 Raghu Green MD #2 [place] [address] Consulting Physician Pulmonary Disease 01/04/22 Warren Osborn MD #[address] [address] Consulting Physician Colon and Rectal Surgery 05/21/23 Ale Spain, RN [place] Nurse Video Tape Editor 09/05/23 09/04/24 Chetan Do MD #[address] [phone] Consulting Physician Endocrinology 01/23/24 documented as of this encounter
--- OUTSIDE RECORDS SUMMARY | 2024-09-29 13:35 | XMS_ITS | Encounter Summary ---
Author Organization [facility] Address [address] [place] [address] Phone Care Team Providers Care Heavy Truck Mechanic Name Role Phone Ariel Christiansen MD Unavailable [phone] Parmjit Vogel MD Unavailable [phone] Nicolas Greer MD Primary Care Provider [phone] Keny Saldaña APRN, HOP WEIGHER Unavailable Cristian Dewitt MD Unavailable Ale Black RN Unavailable Unavailable Ale Spain RN Unavailable Unavailable Jerardo MCCANN MD, Courtney Unavailable [phone] Raghu Green MD Unavailable Warren Osborn MD Unavailable Ale Spain RN Unavailable Unavailable Chetan Do MD Unavailable Reason for Visit * Reason Comments Medication Refill Encounter Details Date Type Department Care Team (Late st Contact Info) Description 06/26/2022 Refill [facility] - Family Medicine [facility] #2 [place] [address] Nicolas Greer MD #[address] [address] Medication Refill Social History Tobacco Use Types [...] Job Start Date Job End Date Retired [employer] Not on file Not on file Not [...] [facility] [place] 01/09/22 Telemedicine Keny Saldaña APRN, HOP WEIGHER [facility] 12/19/21 Office Visit Nicolas Greer MD [facility] [place] 09/08/21 Office Visit Keny Saldaña APRN, HOP WEIGHER [facility] [place] 08/03/21 Telemedicine Nicolas Greer MD [...] [facility] [place] 01/09/22 Telemedicine Keny Saldaña APRN, HOP WEIGHER [facility] 12/19/21 Office Visit Nicolas Greer MD [facility] [place] 09/08/21 Office Visit Keny Saldaña APRN, HOP WEIGHER [facility] [place] 08/03/21 Telemedicine Nicolas Greer MD [facility] [place] [...] st Contact Info) Description 02/17/2025 1:00 PM WIRE STRIPPING MACHINE OPERATOR Office Visit [facility] Medical [facility] - Family Medicine - [place] #2 [place] [address] Nicolas Greer MD #[address] [address] 03/23/2025 2:00 PM WIRE STRIPPING MACHINE OPERATOR Office Visit [facility] Medical [facility] - Pulmonology & Sleep Medicine [facility] #2 [place] [address] Raghu Green MD #2 [place] [address] documented as of this encounter Visit Diagnoses Diagnosis Edema, unspecified type documented in this encounter Additional Health Concerns Assessment Noted Time PHQ-9 Depression Total Score: 0 02/12/19 20 10:45 AM WIRE STRIPPING MACHINE OPERATOR documented as of this encounter Care Teams Heavy Truck Mechanic Relationship Specialty Start Date End Date Nicolas Greer MD #[address] [address] PCP - General Family Medicine 09/08/21 Ariel Christiansen MD Consulting Physician Cardiovascular Disease - Cardiology 07/19/[address] [place] [address] [facility] [address] [place] [address] Governor Assembler Hydraulic Pulmonary Disease 06/18/20 Keny Saldaña APRN, HOP WEIGHER #[address] [address] Nurse Practitioner Advanced Practice Nurse 09/08/21 Cristian Dewitt MD #[address] [address] Consulting Physician Cardiovascular Disease - Cardiology 10/06/21 02/07/24 Ale Spain, RN [place] Refrigeration Manager 03/15/22 02/12/23 Ale Spain, RN [place] Nurse Refrigeration Manager 03/15/22 02/13/23 Yamel Kurtz III, MD #2 [place] [address] Consulting Physician Urology 09/11/22 Raghu Green MD #2 [place] [address] Consulting Physician Pulmonary Disease 01/04/22 Warren Osborn MD #[address] [address] Consulting Physician Colon and Rectal Surgery 05/21/23 Ale Spain RN [place] Nurse Refrigeration Manager 09/05/23 09/04/24 Chetan Do MD #[address] [address] Consulting Physician Endocrinology 01/23/24 documented as of this encounter
--- OUTSIDE RECORDS SUMMARY | 2024-09-29 13:35 | XMS_ITS | Encounter Summary ---
Author Organization [facility] Address [address] [facility] [place] [address] Phone Care Team Providers Care Corduroy Cutter Operator Name Role Phone Nicolas Greer MD MPH Primary Care Provider [phone] Reason for Visit * Reason Comments Med Refill Encounter Details Date Type Department Care Team (Late st Contact Info) Description 12/16/2023 Refill [place] [facility] [address] [facility] [address] [place] [address] Jorge Rabago MD [address] [place] [address] [address] [place], [place] [phone] Social History Tobacco Use Types Packs/Day Years [...] Department Care Team (Late Contact Info) Description 10/08/2024 1:00 PM CDT [facility] [address] [place] [address] Jorge Rabago MD [address] [facility] [address] [place], [place] [address] documented as of this encounter Visit Diagnoses Not on filedocumented in this encounter Care Teams Corduroy Cutter Operator Relationship Specialty Start Date End Date Nicolas Greer MD MPH 2 [place] [id number] PCP - General Family Medicine 01/04/22 documented as of this encounter
--- OUTSIDE RECORDS SUMMARY | 2024-09-29 13:36 | XMS_ITS | Encounter Summary ---
Author Organization [facility] Address [address] [place] [address] Phone Care Team Providers Care Fax Machine Repairer Name Role Phone Ariel Christiansen MD Unavailable [phone] Parmjit Vogel MD Unavailable [phone] Nicolas Greer MD Primary Care Provider [phone] Keny Saldaña APRN, TRANSPORTATION TECHNICIAN Unavailable Cristian Dewitt MD Unavailable Ale Black RN Unavailable Unavailable Ale Spain RN Unavailable Unavailable Jerardo MCCANN MD, Courtney Unavailable [phone] Raghu Green MD Unavailable Warren Osborn MD Unavailable Ale Spain RN Unavailable Unavailable Chetan Do MD Unavailable Reason for Visit * Reason Comments Medication Refill Encounter Details Date Type Department Care Team (Late st Contact Info) Description 09/20/2022 Refill [facility] #2 [place] [address] Nicolas Greer MD #[address] [address] Medication Refill Social History Tobacco Use Types [...] Job Start Date Job End Date Retired [employer] Not on file Not on file Not [...] Med Name: ALBUTEROL HFA 90 MCG INHALER (TX] 8.5 g 1 Sig: INHALE TWO PUFFS [...] [place] 01/09/22 Telemedicine Keny Saldaña APRN, MARY [facility] [place] 12/19/21 Office Visit Nicolas Greer MD [facility] [...] st Contact Info) Description 02/17/2025 1:00 PM SALES AND MARKETING ENGINEER Office Visit [facility] Group - Family Medicine - [place] #[address] [place] [address] Nicolas Greer MD #[address] [address] 03/23/2025 2:00 PM SALES AND MARKETING ENGINEER [facility] - [place] #[address] [place] [address] Raghu Green MD #2 [place] [address] documented as of this encounter Visit Diagnoses Not on filedocumented in this encounter Additional Health Concerns Assessment Noted Time PHQ-9 Depression Total Score: 0 02/12/19 20 10:45 AM SALES AND MARKETING ENGINEER documented as of this encounter Care Teams Fax Machine Repairer Relationship Specialty Start Date End Date Nicolas Grere MD #[address] [address] PCP - General Family Medicine 09/08/21 Ariel Christiansen MD Consulting Physician Cardiovascular Disease - Cardiology 07/19/16 [place] [address] [address] Precision Lens Grinder Apprentice Pulmonary Disease 06/18/20 Keny Saldaña APRN, TRANSPORTATION TECHNICIAN #[address] [address] Nurse Practitioner Advanced Practice Nurse 09/08/21 Cristian Dewitt MD #[address] [address] Consulting Physician Cardiovascular Disease - Cardiology 10/06/21 02/07/24 Ale Spain, RN [place] Construction Management Instructor 03/15/22 02/12/23 Ale Spain, RN [place] Nurse Construction Management Instructor 03/15/22 02/13/23 Yamel Kurtz III, MD #2 [place] [address] Consulting Physician Urology 09/11/22 Raghu Green MD #2 [place] [address] Consulting Physician Pulmonary Disease 01/04/22 Warren Osborn MD #[address] [address] Consulting Physician Colon and Rectal Surgery 05/21/23 Ale Spain RN [place] Nurse Construction Management Instructor 09/05/23 09/04/24 Chetan Do MD #[address] [address] Consulting Physician Endocrinology 01/23/24 documented as of this encounter
--- OUTSIDE RECORDS SUMMARY | 2024-09-29 13:36 | XMS_ITS | Encounter Summary ---
Author Organization [facility] Address [address] [place] [place] [address] Phone Care Team Providers Care Dust Collector Name Role Phone Ariel Christiansen MD Unavailable [phone] Parmjit Vogel MD Unavailable [phone] Nicolas Greer MD Primary Care Provider [phone] Keny Saldaña APRN, DYNAMITE PACKING MACHINE OPERATOR Unavailable Cristian Dewitt MD Unavailable Ale Black RN Unavailable Unavailable Ale Spain RN Unavailable Unavailable Jerardo MCCANN MD, Courtney Unavailable [phone] Raghu Green MD Unavailable Warren Osborn MD Unavailable Ale Spain RN Unavailable Unavailable Chetan Do MD Unavailable Reason for Visit * Reason Comments Medication Refill Encounter Details Date Type Department Care Team (Late st Contact Info) Description 08/02/2022 Refill [facility] - [facility] #2 [place] [address] Nicolas Greer MD #[address] [address] Medication Refill Social History Tobacco Use Types [...] Job Start Date Job End Date Retired [employer] Not on file Not on file Not [...] Refills: 0 Signed by: Nicolas Greer MD [facility] documented in this encounter Plan of Treatment Upcoming Encounters Date Type Department Care Team (Late st Contact Info) Description 02/17/2025 1:00 PM COLD ROLL CATCHER Office Visit [facility] - Family Medicine - [place] #[address] [place] [address] Nicolas Greer MD [address] [address] 03/23/2025 2:00 PM COLD ROLL CATCHER Office Visit [facility] - Pulmonology & Sleep Medicine [facility] #2 [place] [address] Raghu Green MD #2 [place] [address] documented as of this encounter Visit Diagnoses Not on filedocumented in this encounter Additional Health Concerns Assessment Noted Time PHQ-9 Depression Total Score: 0 02/12/19 20 10:45 AM COLD ROLL CATCHER documented as of this encounter Care Teams Dust Collector Relationship Specialty Start Date End Date Nicolas Greer MD #[address] [address] PCP - General Family Medicine 09/08/21 Ariel Christiansen MD Consulting Physician Cardiovascular Disease - Cardiology 07/19/16 [place] [address] [address] Parts Data Writer Pulmonary Disease 06/18/20 Keny Saldaña APRN, DYNAMITE PACKING MACHINE OPERATOR #[address] [address] Nurse Practitioner Advanced Practice Nurse 09/08/21 Cristian Dewitt MD #[address] [address] Consulting Physician Cardiovascular Disease - Cardiology 10/06/21 02/07/24 Ale Spain, [place] Insulator Technician 03/15/22 02/12/23 Ale Spain RN [place] Nurse Insulator Technician 03/15/22 02/13/23 Yamel Kurtz III, MD #2 [place] [address] Consulting Physician Urology 09/11/22 Raghu Green MD #2 [place] [address] Consulting Physician Pulmonary Disease 01/04/22 Warren Osborn MD #[address] [address] Consulting Physician Colon and Rectal Surgery 05/21/23 Ale Spain, RN [place] Nurse Insulator Technician 09/05/23 09/04/24 Chetan Do MD #[address] [phone] Consulting Physician Endocrinology 01/23/24 documented as of this encounter
--- OUTSIDE RECORDS SUMMARY | 2024-09-29 13:36 | XMS_ITS | Encounter Summary ---
Author Organization [facility] Address [address] [place] [address] [place] [address] Phone Care Team Providers Care Drier And Grinder Tender Name Role Phone Ariel Christiansen MD Unavailable [phone] Parmjit Vogel MD Unavailable [phone] Nicolas Greer MD Primary Care Provider [phone] Keny Saldaña APRN, CAR HIKER Unavailable Cristian Dewitt MD Unavailable Ale Black RN Unavailable Unavailable Ale Spain RN Unavailable Unavailable Jerardo MCCANN MD, Courtney Unavailable [phone] Raghu Green MD Unavailable Warren Osborn MD Unavailable Ale Spain RN Unavailable Unavailable Chetan Do MD Unavailable Reason for Visit * Reason Comments Medication Refill Encounter Details Date Type Department Care Team (Late st Contact Info) Description 12/11/2022 Refill [facility] #2 [place] [address] Nicolas Greer MD #[address] [address] Medication Refill Social History Tobacco Use Types [...] Job Start Date Job End Date Retired [employer] Not on file Not on file Not [...] Dept 09/21/22 Office Visit Nicolas Greer MD [facility] [place] 07/18/22 Telemedicine Nicolas Greer MD [facility] 06/21/22 Office Visit Nicolas Greer MD [facility] 03/22/22 Office Visit Nicolas Greer MD [facility] 03/07/22 Telemedicine Nicolas Greer MD [facility] 02/13/22 Telemedicine Nicolas Greer MD [facility] 01/11/22 Telemedicine Nicolas Greer MD [facility] 01/09/22 Telemedicine Keny Saldaña APRN, CNP [facility] 12/19/21 Office Visit Nicolas Greer MD [facility] [place] Showing recent visits within past 365 days and meeting all other requirements Future Appointments Date Type Provider Dept 12/21/22 Appointment Nicloas Greer MD [facility] Showing future appointments within next 90 [...] no refill protocol information for this order HANGER documented in this encounter Plan of Treatment Upcoming Encounters Date Type Department Care Team (Late st Contact Info) Description 02/17/2025 1:00 PM CARD HANGER Office Visit [facility] Medical [facility] Family Medicine - [place] #2 [place] [address] Nicolas Greer MD #[address] [address] 03/23/2025 2:00 PM CARD HANGER Office Visit [facility] - Pulmonology & Sleep Medicine - [place] #2 [place] [address] Raghu Green MD #2 [place] [address] documented as of this encounter Visit Diagnoses Diagnosis Edema, unspecified type documented in this encounter Additional Health Concerns Assessment Noted Time PHQ-9 Depression Total Score: 0 09/22/19 23 1:48 PM CDT documented as of this encounter Care Teams Drier And Grinder Tender Relationship Specialty Start Date End Date Nicolas Greer MD #[address] [address] PCP - General Family Medicine 09/08/21 Ariel Christiansen MD Consulting Physician Cardiovascular Disease - Cardiology 07/19/16 [place] [address] [address] Touch Up Painter Hand Pulmonary Disease 06/18/20 Keny Saldaña, LAY OUT AND DETAIL DRAFTER, CAR HIKER #[address] [address] Nurse Practitioner Advanced Practice Nurse 09/08/21 Cristian Dewitt MD #[address] [address] Consulting Physician Cardiovascular Disease - Cardiology 10/06/21 02/07/24 Ale Spain, RN [place] Paperhanger Supervisor 03/15/22 02/12/23 Ale Spain, RN [place] Nurse Paperhanger Supervisor 03/15/22 02/13/23 Yamel Kurtz III, MD #2 [place] [address] Consulting Physician Urology 09/11/22 Raghu Green MD #2 [place] [address] Consulting Physician Pulmonary Disease 01/04/22 Warren Osborn MD #[address] [address] Consulting Physician Colon and Rectal Surgery 05/21/23 Ale Spain, RN [place] Nurse Paperhanger Supervisor 09/05/23 09/04/24 Chetan Do MD #[address] [phone] Consulting Physician Endocrinology 01/23/24 documented as of this encounter
--- OUTSIDE RECORDS SUMMARY | 2024-09-29 13:36 | XMS_ITS | Encounter Summary ---
Author Organization [facility] Address [address] [place] [address] Phone Care Team Providers Care Stone Gang Sawyer Name Role Phone Nicolas Greer MD Primary Care Provider [phone] Ariel Christiansen MD Unavailable [phone] Parmjit Vogel MD Unavailable [phone] Nicolas Greer MD Primary Care Provider [phone] Keny Saldaña APRN, STREET SUPERVISOR Unavailable Cristian Dewitt MD Unavailable Ale Black RN Unavailable Unavailable Ale Spain RN Unavailable Unavailable Jerardo MCCANN MD, Courtney Unavailable [phone] Raghu Green MD Unavailable Warren Osborn MD Unavailable Ale Spain RN Unavailable Unavailable Chetan Do MD Unavailable Reason for Visit * Reason Comments Medication Refill Encounter Details Date Type Department Care Team (Late st Contact Info) Description 02/06/2021 Refill [facility] - Family [facility] #2 [place] [address] Nicolas Greer MD [address] [place] [id number] Medication Refill Social History Tobacco Use Types [...] Industry Job Start Date Job End Date [employer] Not on file Not on file Not on file COVID-19 Exposure Response Date Recorded In the last month, have you been in contact with someone who was confirmed or suspected to have Coronavirus / COVID-19? No / Unsure 01/07/2021 12:02 PM SANDSTONE INSPECTOR REPAIRER documented as of this encounter Miscellaneous [...] [place] 03/11/20 Office Visit Nicolas Greer MD [facility] Showing recent visits within past 365 days and meeting all other requirements Future Appointments Date Type Provider Dept 03/22/21 Appointment Nicolas Greer MD [facility] Showing future appointments within next 90 days and meeting all other requirements STONE INSPECTOR REPAIRER documented in this encounter Plan of Treatment Upcoming Encounters Date Type Department Care Team (Late st Contact Info) Description 02/17/2025 1:00 PM SANDSTONE INSPECTOR REPAIRER Office Visit [facility] Family [facility] #2 [place] [address] Nicolas Greer MD #[address] [address] 03/23/2025 2:00 PM SANDSTONE INSPECTOR REPAIRER Office Visit [facility] - Pulmonology & Sleep Medicine [facility] #2 [place] [address] Raghu Green MD #2 [place] [address] documented as of this encounter Visit Diagnoses Diagnosis Pulmonary emphysema, unspecified emphysema type (HCC) documented in this encounter Additional Health Concerns Infection Onset Date Last Indicated Resolved Time COVID - 19 09/02/2021 09/02/2021 09/03/2021 2:05 PM CDT COVID - 19 12/24/2021 12/24/2021 12/26/2021 8:07 AM SANDSTONE INSPECTOR REPAIRER Respiratory Rule Out - RPA 12/24/2021 12/24/2021 1 02/24/2021 4:41 PM SANDSTONE INSPECTOR REPAIRER Influenza 12/24/2021 12/24/2021 12/31/2021 12:1 6 AM SANDSTONE INSPECTOR REPAIRER Assessment Noted Time PHQ-9 Depression Total Score: 0 02/12/19 10:45 AM SANDSTONE INSPECTOR REPAIRER documented as of this encounter Care Teams Stone Gang Sawyer Relationship Specialty Start Date End Date Nicolas Greer MD #[address] [address] PCP - General Family Medicine 12/22/14 09/07/21 Nicolas Greer MD #[address] [address] PCP - General Family Medicine 09/08/21 Ariel Christiansen MD #[address] [address] Consulting Physician Cardiovascular Disease - Cardiology 07/19/16 [place] [address] [address] Mental Retardation Nurse Pulmonary Disease 06/18/20 Keny Saldaña, SUPERVISOR TUNNEL HEADING, STREET SUPERVISOR #[address] [address] Nurse Practitioner Advanced Practice Nurse 09/08/21 Cristian Dewitt MD #[address] [address] Consulting Physician Cardiovascular Disease - Cardiology 10/06/21 02/07/24 Ale Spain, RN [place] Office Services Manager 03/15/22 02/12/23 Ale Spain, RN [place] Nurse Office Services Manager 03/15/22 02/13/23 Yamel Kurtz III, MD #2 [place] [address] Consulting Physician Urology 09/11/22 Raghu Green MD #2 [place] [address] Consulting Physician Pulmonary Disease 01/04/22 Warren Osborn MD #[address] [address] Consulting Physician Colon and Rectal Surgery 05/21/23 Ale Spain RN [place] Nurse Office Services Manager 09/05/23 09/04/24 Chetan Do MD #[address] [address] Consulting Physician Endocrinology 01/23/24 documented as of this encounter
--- OUTSIDE RECORDS SUMMARY | 2024-09-29 13:36 | XMS_ITS | Encounter Summary ---
Author Organization [facility] Address [address] [place] [address] Phone Care Team Providers Care City Planning Engineer Name Role Phone rAiel Christiansen MD Unavailable [phone] Parmjit Vogel MD Unavailable [phone] Nicolas Greer MD Primary Care Provider [phone] Keny Saldaña APRN, PAD MAKING MACHINE OPERATOR Unavailable Cristian Dewitt MD Unavailable Ale Black RN Unavailable Unavailable Ale Spain RN Unavailable Unavailable Jerardo MCCANN MD, Courtney Unavailable [phone] Raghu Green MD Unavailable Warren Osborn MD Unavailable Ale Spain RN Unavailable Unavailable Chetan Do MD Unavailable Encounter Details Date Type Department Care Team (Late st Contact Info) Description 01/03/2022 Lab Requisition [facility] [address] [place] [address] Nicolas Greer MD #[address] [address] Hypercalcemia Social History Tobacco Use Types Packs/Day [...] Industry Job Start Date Job End Date [employer] Not on file Not on file Not on file COVID-19 Exposure Response Date Recorded In the last 10 days, have yo u been in contact with someone who was confirmed or suspected to have Coronavirus/COVID-19? No / Unsure 01/05/2022 8:15 AM ROLLWAY MAN documented as of this encounter Plan of Treatment Upcoming Encounters Date Type Department Care Team (Late st Contact Info) Description 02/17/2025 1:00 PM ROLLWAY MAN [facility] - Family Medicine - [place] #2 [place] [address] Nicolas Greer MD #[address] [address] 03/23/2025 2:00 PM ROLLWAY MAN Office Visit [facility] - Pulmonology & Sleep Medicine [facility] #2 [place] [address] Raghu Green MD #2 [place] [address] documented as of this encounter Procedures Procedure Name Priority Date/Time Associated Diagnosis Comments IONIZED CALCIUM (ICA) Routine 01/03/2022 1:43 PM ROLLWAY MAN Hypercalcemia documented in this encounter Results * (ABNORMAL) IONIZED CALCIUM (ICA) (01/03/2022 1:43 PM ROLLWAY MAN) CALCIUM IONIZED 1.41(H) 1.19 - 1.31 mmol/L 01/03/2022 2:57 PM ROLLWAY MAN [facility] Blood No Phlebotomy Charged / Unknown 01/03/2022 1:43 PM ROLLWAY MAN 01/03/2022 2:37 PM ROLLWAY MAN Nicolas Greer MD CHEMISTRY ORDERABLES Jacqueline l Result [facility] #1 [place] [address] documented in this encounter Visit Diagnoses Diagnosis Hypercalcemia documented in this encounter Additional Health Concerns Assessment Noted Time PHQ-9 Depression Total Score: 0 02/12/19 20 10:45 AM ROLLWAY MAN documented as of this encounter Care Teams City Planning Engineer Relationship Specialty Start Date End Date Nicolas Greer MD #[address] [address] PCP - General Family Medicine 09/08/21 Ariel Christiansen MD Consulting Physician Cardiovascular Disease - Cardiology 07/19/16 [place] [address] [address] Diamond Wheel Edger Pulmonary Disease 06/18/20 Keny Saldaña APRN, PAD MAKING MACHINE OPERATOR #[address] [address] Nurse Practitioner Advanced Practice Nurse 09/08/21 Cristian Dewitt MD #[address] [address] Consulting Physician Cardiovascular Disease - Cardiology 10/06/21 02/07/24 Ale Spain, RN [place] Medical Editor 03/15/22 02/12/23 Ale Spain, RN [place] Nurse Medical Editor 03/15/22 02/13/23 Yamel Kurtz III, MD #2 [place] [address] Consulting Physician Urology 09/11/22 Raghu Green MD #2 [place] [address] Consulting Physician Pulmonary Disease 01/04/22 Warren Osborn MD #[address] [address] Consulting Physician Colon and Rectal Surgery 05/21/23 Ale Spain, RN [place] Nurse Medical Editor 09/05/23 09/04/24 Chetan Do MD #[address] [phone] Consulting Physician Endocrinology 01/23/24 documented as of this encounter
--- OUTSIDE RECORDS SUMMARY | 2024-09-29 13:36 | XMS_ITS | Encounter Summary ---
Author Organization [facility] Address [address] [place] [address] Phone Care Team Providers Care Diversional Therapist Name Role Phone Ariel Christiansen MD Unavailable [phone] Parmjit Vogel MD Unavailable [phone] Nicolas Greer MD Primary Care Provider [phone] Keny Saldaña APRN, MARY Unavailable Cristian Dewitt MD Unavailable Kate Kurtz III, MD, Courtney Unavailable [phone] Raghu Green MD Unavailable Warren Osborn MD Unavailable Ale Spain RN Unavailable Unavailable Chetan Do MD Unavailable Reason for Visit * Reason Comments Medication Refill Encounter Details Date Type Department Care Team (Late st Contact Info) Description 03/02/2023 Refill [facility] - Family Medicine - [place] #2 [place] [address] Nicolas Greer MD #[address] [address] Medication Refill Social History Tobacco Use Types [...] Industry Job Start Date Job End Date [employer] Not on file Not on file Not on file documented as of this encounter Miscellaneous Notes * Telephone Encounter - Nicolle Funk RN - 03/02/2023 2:32 PM CST Medication warning Per nursing clinical judgement, provider to review and approve the medication(s) order(s) if appropriate. Requested Prescriptions Pending Prescriptions Disp Refills BrezBarburrito 160-9-4.8 MCG/ACT Aerosol [Pharmacy Med Name: BREZTRI [...] Date Type Provider Dept 04/04/23 Appointment Nicolas Gerer MD [facility] Showing future appointments within next 90 days and meeting all other requirements Passed - Active short-acting beta agonist prescription MA PROCESSOR documented in this encounter Plan of Treatment Upcoming Encounters Date Type Department Care Team (Late st Contact Info) Description 02/17/2025 1:00 PM PLASMA PROCESSOR Office Visit [facility] Medical [facility] - Family Medicine [facility] #2 [place] [address] Nicolas Greer MD #[address] [address] 03/23/2025 2:00 PM PLASMA PROCESSOR Office Visit [facility] - Pulmonology & Sleep Medicine [facility] #2 [place] [address] Raghu Green MD #2 [place] [address] documented as of this encounter Visit Diagnoses Not on filedocumented in this encounter Additional Health Concerns Assessment Noted Time PHQ-9 Depression Total Score: 0 09/22/19 23 1:48 PM CDT documented as of this encounter Care Teams Diversional Therapist Relationship Specialty Start Date End Date Nicolas Greer MD #[address] [address] PCP - General Family Medicine 09/08/21 Ariel Christiansen MD Consulting Physician Cardiovascular Disease - Cardiology 07/19/16 [place] [address] [address] Linux Systems Engineer Pulmonary Disease 06/18/20 Keny Saldaña APRN, PACKING ROOM SUPERVISOR #[address] [address] Nurse Practitioner Advanced Practice Nurse 09/08/21 Cristian Dewitt MD #[address] [address] Consulting Physician Cardiovascular Disease - Cardiology 10/06/21 02/07/24 Yamel Kurtz III, MD #2 [place] [address] Consulting Physician Urology 09/11/22 Raghu Green MD #2 [place] [address] Consulting Physician Pulmonary Disease 01/04/22 Warren Osborn MD #[address] [address] Consulting Physician Colon and Rectal Surgery 05/21/23 Ale Spain RN [place] Nurse Automatic Packer Operator 09/05/23 09/04/24 Chetan Do MD #[address] [id number] Consulting Physician Endocrinology 01/23/24 documented as of this encounter
--- OUTSIDE RECORDS SUMMARY | 2024-09-29 13:36 | XMS_ITS | Encounter Summary ---
Author Organization [facility] Address [address] [place] [address] [place] [address] Phone Care Team Providers Care Operational Intelligence Officer Name Role Phone Nicolas Greer MD Primary Care Provider [phone] Ariel Christiansen MD Unavailable [phone] Parmjit Vogel MD Unavailable [phone] Nicolas Greer MD Primary Care Provider [phone] Keny Saldaña APRN, INTERCEPTOR OPERATOR Unavailable Cristian Dewitt MD Unavailable Ale Black RN Unavailable Unavailable Ale Spain RN Unavailable Unavailable Jerardo MCCANN MD, Courtney Unavailable [phone] Raghu Green MD Unavailable Warren Osborn MD Unavailable Ale Spain RN Unavailable Unavailable Chetan Do MD Unavailable Encounter Details Date Type Department Care Team (Late st Contact Info) Description 08/05/2021 [facility] [address] [place] [address] Nicolas Greer MD [address] [address] Idiopathic gout, unspecified site; Type 2 diabetes [...] Job Start Date Job End Date Retired [employer] Not on file Not on file Not [...] st Contact Info) Description 02/17/2025 1:00 PM PROCESS CONTROL BOARD OPERATOR Office Visit [facility] - Family Medicine - [place] [address] [place] [address] Nicolas Greer MD [address] [address] 03/23/2025 2:00 PM PROCESS CONTROL BOARD OPERATOR Office Visit [facility] - Pulmonology & Sleep Medicine [facility] [address] [place] [phone] Raghu Green MD [address] [place] [address] documented as of this encounter Procedures Procedure [...] - 12.00 10(3)/mcL 08/05/2021 9:[address] [facility] RBC 4.35 3.80 - 5.30 10(6)/mcL 08/05/2021 9:[address] [facility] HEMOGLOBIN (HGB) 13.2 12.0 - 15.8 g/dL 08/05/2021 9:[address] [facility] HEMATOCRIT (HCT) 44.4 36.0 - 47.0 % 08/05/2021 9:[address] [facility] MCV 102.1(H) 82.0 - 96.0 fL 08/05/2021 9:[address] [facility] MCH 30.3 26.0 - 34.0 pg 08/05/2021 9:[address] [facility] MCHC 29.7(L) 31.0 - 36.0 g/dL 08/05/2021 9:[address] [facility] PLATELET COUNT 279 140 - 440 10(3)/mcL 08/05/2021 9:[address] [facility] RDW 13.2 11.8 - 15.5 % 08/05/2021 9:[address] [facility] MPV 10.1 9.7 - 12.4 fL 08/05/2021 9:[address] [facility] NEUTROPHILS 71.3 47.0 - 73.0 % 08/05/2021 9:[address] [facility] LYMPHOCYTES 20.3 18.0 - 42.0 % 08/05/2021 9:[address] [facility] MONOCYTES 6.1 4.0 - 12.0 % 08/05/2021 9:[address] [facility] EOSINOPHILS 1.6 0.0 - 5.0 % 08/05/2021 9:[address] [facility] BASOPHILS 0.7 0.0 - 1.0 % 08/05/2021 9:[address] [facility] ABSOLUTE NEUTROPHILS 4.77 1.60 - 7.70 10(3)/[facility] 08/05/2021 9:[address] [facility] ABSOLUTE LYMPHOCYTES 1.36 1.30 - 3.20 10(3)/[facility] 08/05/2021 9:[address] [facility] ABSOLUTE MONOCYTES 0.41 0.20 - 1.00 10(3)/[facility] 08/05/2021 9:[address] [facility] ABSOLUTE EOSINOPHIL 0.11 0.00 - 0.40 10(3)/[facility] 08/05/2021 9:[address] [facility] ABSOLUTE BASOPHILS 0.05 0.00 - 0.10 10(3)/[facility] 08/05/2021 9:37 AM CDT [facility] NRBC PER 100 WBC 0 08/06/19 9:37 AM CDT [facility] RESULTS ARE CONSISTENT WITH PERIPHERAL SMEAR REVIEW Yes 08/05/2021 9:37 AM CDT [facility] Blood No Phlebotomy Charged / Unknown 08/05/2021 8:18 AM CDT 08/05/2021 9:18 AM CDT [facility] Dalton Greer MD HEMATOLOGY ORDERABLES Fin al Result Performing Organization Address City/[facility] Co de Phone Number [facility] [address] [place] [address] * (ABNORMAL) VITAMIN B12 (08/05/2021 8:18 AM CDT) VITAMIN B12 239(L) 243 - 894 pg/mL 08/05/2021 10:[address] [facility] Blood No Phlebotomy Charged / Unknown 08/05/2021 8:18 AM CDT 08/05/2021 9:18 AM CDT Nicolas Greer MD CHEMISTRY ORDERABLES Jacqueline l Result Performing Organization Address [facility] Co de Phone Number [facility] [address] [place] [address] * VITAMIN D, 25 HYDROXY TOTAL (08/05/2021 8:18 AM CDT) VITAMIN D, 25 HYDROX 38 >=30 ng/mL 08/05/2021 10:[address] [facility] Blood No Phlebotomy Charged / Unknown 08/05/2021 8:18 AM CDT 08/05/2021 9:18 AM CDT Narrative [facility] - 08/05/2021 10:00 AM CDT Published reference ranges for Vitamin D vary depending on time and place and method of testing, and on patient's age, sex, ethnicity and levels of other measured analytes such as parathormone, calcium and phosphorus. The result should be evaluated in conjunction with clinical findings and suspicions. [place] of Medicine and Endocrine Clinical Practice Guidelines: Status Vitamin D levels (ng/mL) Deficient <=20 At risk of inadequacy 21-29 Sufficient 30-100 Centers of Disease Control and Prevention Guidelines: Status Vitamin D levels (ng/mL) Deficient <13 At risk of inadequacy 13-19 Sufficient 20-50 Possibly harmful >50 References: [place] of Medicine, 2010 Dietary reference intakes for calcium and vitamin D. Sheets [place]: The National Academies Press. Deni M, Wilfredo N, Belkis العراقي, et al., Evaluation, treatment, and prevention of Vitamin D deficiency: an Endocrinology Clinical Practice Guideline. JCEM 2011 96: 7 3343-1039. Roxana A, Wilton C, Juan D, et al., Vitamin D Status: [place], 3539-4273, [facility] data brief, no. 59, MD Mel: [facility] for Health Statistics. 2011. Nicolas Greer MD CHEMISTRY ORDERABLES Jacqueline l Result Performing Organization Address City/[facility]/ZIP Co de Phone Number [facility] [address] [place] [address] * URIC ACID (BLOOD ASSAY) (08/05/2021 8:18 AM CDT) URIC ACID 4.1 2.4 - 5.7 mg/dL 08/05/2021 9:[address] [facility] Blood No Phlebotomy Charged / Unknown 08/05/2021 8:18 AM CDT 08/05/2021 9:18 AM CDT Nicolas Greer MD CHEMISTRY ORDERABLES Jacqueline l Result Performing Organization Address City/[facility]/ZIP Co de Phone Number [facility] [address] [place] [address] * (ABNORMAL) HEMOGLOBIN A1C W/ ESTIMATED GLUCOSE (08/05/2021 8:18 AM CDT) HGB-A1C 6.1(H) 4.0 - 6.0 % 08/05/2021 9:[address] [facility] Est Average Glucose 128.4 mg/dL 08/05/2021 9:[address] [facility] Blood No Phlebotomy Charged / Unknown 08/05/2021 8:18 AM CDT 08/05/2021 9:18 AM CDT Narrative [facility] - 08/05/2021 9:43 AM CDT HEMOGLOBIN A1C: DIABETIC PATIENTS: WELL-CONTROLLED: 6.2 - 7.0 INTERMEDIATE WELL-CONTROLLED: 7.0 - 9.0 POORLY-CONTROLLED: >9.0 Nicolas Greer MD CHEMISTRY ORDERABLES Jacqueline l Result Performing Organization Address City/[facility]/ZIP Co de Phone Number [facility] [address] [place] [address] * THYROID STIMULATING HORMONE (TSH) (08/05/2021 8:18 AM CDT) TSH 3.980 0.270 - 4.200 mIU/L 08/05/2021 9:[address] [facility] Blood No Phlebotomy Charged / Unknown 08/05/2021 8:18 AM CDT 08/05/2021 9:18 AM CDT Nicolas Greer MD CHEMISTRY ORDERABLES Jacqueline l Result [facility] [address] [place] [address] * (ABNORMAL) LIPID PANEL (08/05/2021 8:18 AM CDT) CHOLESTEROL 183 <=200 mg/dL 08/05/2021 9:[address] [facility] TRIGLYCERIDES 152(H) <150 mg/dL 08/05/2021 9:[address] [facility] HDL CHOLESTEROL 49.9 >40 mg/dL 9:[address] [facility] LDL 103 5 - 130 mg/dL 08/05/2021 9:[address] [facility] VLDL 30 5 - 55 mg/dL 08/05/2021 9:[address] [facility] CHOL/HDL RATIO 3.7 0.0 - 4.4 08/05/2021 9:51 AM CDT [facility] NON-HDL CHOLESTEROL 133.1(H) <130 mg/dL 08/05/2021 9:51 AM CDT [facility] Blood No Phlebotomy Charged / Unknown 08/05/2021 8:18 AM CDT 08/05/2021 9:18 AM CDT Nicolas Greer MD CHEMISTRY ORDERABLES Jacqueline l Result [facility] [address] [place] [address] * (ABNORMAL) CMP (COMPREHENSIVE METABOLIC PANEL) (08/05/2021 8:18 AM CDT) SODIUM 141 136 - 144 mmol/L 08/05/2021 9:51 AM CDT [facility] POTASSIUM 4.5 3.5 - 5.1 mmol/L 08/05/2021 9:51 AM CDT [facility] CHLORIDE 102 100 - 110 mmol/L 08/05/2021 9:51 AM CDT [facility] CO2, VENOUS 34(H) 22 - 32 mmol/L 08/05/2021 9:51 AM CDT [facility] ANION GAP 9.5 8.0 - 20.0 mmol/L 08/05/2021 9:51 AM CDT [facility] GLUCOSE 112(H) 70 - 99 mg/dL 08/05/2021 9:51 AM CDT [facility] BUN 18 8 - 23 mg/dL 08/05/2021 9:51 AM CDT [facility] CREATININE, BLOOD 0.64 0.60 - 1.10 mg/dL 08/05/2021 9:51 AM CDT [facility] BUN/CREATININE RATIO 28(H) 12 - 20 ratio 08/05/2021 9:51 AM CDT [facility] TOTAL PROTEIN 6.8 6.0 - 8.3 g/dL 08/05/2021 9:51 AM CDT [facility] ALBUMIN 4.1 3.5 - 5.2 g/dL 08/05/2021 9:51 AM CDT [facility] Comment: The colormetric methods used for the determination of Albumin may lead to falsely elevated test results in patients suffering from renal failure or insufficiency due to interference with other proteins. A/G RATIO 1.5 1.0 - 2.0 08/05/2021 9:[address] [facility] CALCIUM 10.7(H) 8.9 - 10.3 mg/dL 08/05/2021 9:[address] [facility] T BILI 0.4 <=1.2 mg/dL 08/05/2021 9:51 AM CDT [facility] SGOT (AST) 13 <=32 U/L 08/05/2021 9:51 AM CDT [facility] SGPT (ALT) 8 <=41 U/L 08/05/2021 9:51 AM CDT [facility] ALKALINE PHOSPHATASE 86 35 - 105 U/L 08/05/2021 9:51 AM CDT [facility] GFR, EST. NONAFRICAN >60 >=60 08/05/2021 9:51 AM CDT [facility] GFR, EST. >60 >=60 022 9:51 AM CDT [facility] Comment: Creatinine Clearance is the preferred criteria for selecting drug dose adjustments in renally impaired patients. The GFR is provided as additional pertinent clinical information. GFR is reported in mL/min/1.73 sq m. Blood No Phlebotomy Charged / Unknown 08/05/2021 8:18 AM CDT 08/05/2021 9:18 AM CDT us Nicolas Greer MD CHEMISTRY ORDERABLES Jacqueline l Result [facility] [address] [place] [address] documented in this encounter Visit Diagnoses Diagnosis Idiopathic gout, unspecified site Type 2 diabetes mellitus without complications Type II or unspecified type diabetes mellitus [...] - 19 12/24/2021 12/24/2021 12/26/2021 8:07 AM PROCESS CONTROL BOARD OPERATOR Respiratory Rule Out - RPA 12/24/2021 12/24/2021 1 02/24/2021 4:41 PM PROCESS CONTROL BOARD OPERATOR Influenza 12/24/2021 12/24/2021 12/31/2021 12:1 6 AM PROCESS CONTROL BOARD OPERATOR Assessment Noted Time PHQ-9 Depression Total Score: 0 02/12/19 10:45 AM PROCESS CONTROL BOARD OPERATOR documented as of this encounter Care Teams Operational Intelligence Officer Relationship Specialty Start Date End Date Nicolas Greer MD #[address] [address] PCP - General Family Medicine 12/22/14 09/07/21 Nicolas Greer MD #[address] [address] PCP - General Family Medicine 09/08/21 Ariel Christiansen MD #[address] [address] Consulting Physician Cardiovascular Disease - Cardiology 07/19/16 [place] [id number] [address] Social Service Assistant Pulmonary Disease 06/18/20 Keny Saldaña, ADVISORY SERVICES ASSOCIATE, INTERCEPTOR OPERATOR #[address] [address] Nurse Practitioner Advanced Practice Nurse 09/08/21 Cristian Dewitt MD #[address] [address] Consulting Physician Cardiovascular Disease - Cardiology 10/06/21 02/07/24 Ale Spain, RN [place] Recreation Program Coordinator 03/15/22 02/12/23 Ale Spain, RN [place] Nurse Recreation Program Coordinator 03/15/22 02/13/23 Yamel Kurtz III, MD #[address] [place] [address] Consulting Physician Urology 09/11/22 Raghu Green MD [address] [place] [address] Consulting Physician Pulmonary Disease 01/04/22 Warren Osborn MD #[address] [address] Consulting Physician Colon and Rectal Surgery 05/21/23 Ale Spain, RN [place] Nurse Recreation Program Coordinator 09/05/23 09/04/24 Chetan Do MD #[address] [address] Consulting Physician Endocrinology 01/23/24 documented as of this encounter
--- OUTSIDE RECORDS SUMMARY | 2024-09-29 13:36 | XMS_ITS | Encounter Summary ---
Author Organization [facility] Address [address] [place] [address] [place] [address] Phone Care Team Providers Care Regulator Pin Inserter Name Role Phone Ariel Christiansen MD Unavailable [phone] Parmjit Vogel MD Unavailable [phone] Nicolas Greer MD Primary Care Provider [phone] Keny Saldaña APRN, MIX TECHNICIAN Unavailable Cristian Dewitt MD Unavailable Ale Black RN Unavailable Unavailable Ale Spain RN Unavailable Unavailable Jerardo MCCANN MD, Courtney Unavailable [phone] Raghu Green MD Unavailable Warren Osborn MD Unavailable Ale Spain RN Unavailable Unavailable Chetan Do MD Unavailable Encounter Details Date Type Department Care Team (Late st Contact Info) Description 01/13/2022 Lab Requisition [facility] [address] [place] [address] Nicolas Greer MD [address] [address] Hypercalcemia Social History Tobacco Use Types Packs/Day [...] Industry Job Start Date Job End Date [employer] Not on file Not on file Not on file COVID-19 Exposure Response Date Recorded In the last 10 days, have yo u been in contact with someone who was confirmed or suspected to have Coronavirus/COVID-19? No / Unsure 01/09/2022 9:59 AM CAMPAIGN COORDINATOR documented as of this encounter Plan of Treatment Upcoming Encounters Date Type Department Care Team (Late st Contact Info) Description 02/17/2025 1:00 PM CAMPAIGN COORDINATOR Office Visit [facility] - [place] [address] [place] [address] Nicolas Greer MD #[address] [address] 03/23/2025 2:00 PM CAMPAIGN COORDINATOR Office Visit [facility] - Pulmonology & Sleep Medicine [facility] #2 [place] [phone] Raghu Green MD #2 [place] [address] documented as of this encounter Procedures Procedure Name Priority Date/Time Associated Diagnosis Comments VITAMIN D, 25 HYDROXY TOTAL Routine 01/13/2022 12:08 PM CAMPAIGN COORDINATOR Hypercalcemia CBC WITH AUTO DIFFERENTIAL Routine 01/13/2022 12:08 PM CAMPAIGN COORDINATOR Hypercalcemia PHOSPHORUS (PO4) Routine 01/13/2022 12:0 8 PM CAMPAIGN COORDINATOR Hypercalcemia PARATHYROID HORMONE PTH INTACT Routine 01/13/2022 12:08 PM CAMPAIGN COORDINATOR Hypercalcemia MAGNESIUM (MG) Routine 01/13/2022 12:08 PM CAMPAIGN COORDINATOR Hypercalcemia IONIZED CALCIUM (ICA) Routine 01/13/2022 12:08 PM CAMPAIGN COORDINATOR Hypercalcemia COMPLETE BLOOD COUNT (CBC) WITH DIFF Routine 01/13/2022 12:08 PM CAMPAIGN COORDINATOR Hypercalcemia BASIC METABOLIC PANEL W/ CALCIUM TOTAL Routine 01/13/2022 12:08 PM CAMPAIGN COORDINATOR Hypercalcemia documented in this encounter Results * (ABNORMAL) CBC WITH AUTO DIFFERENTIAL (01/13/2022 12:08 PM CAMPAIGN COORDINATOR) [facility] WBC 10.30 4.00 - 12.00 10(3)/mcL 01/13/2022 12:51 PM CAMPAIGN COORDINATOR [facility] RBC 3.76(L) 3.80 - 5.30 10(6)/mcL 01/13/2022 12:51 PM CAMPAIGN COORDINATOR [facility] HEMOGLOBIN (HGB) 11.4(L) 12.0 - 15.8 g/dL 01/13/2022 12:51 PM CAMPAIGN COORDINATOR [facility] HEMATOCRIT (HCT) 38.0 36.0 - 47.0 % 01/13/2022 12:51 PM CAMPAIGN COORDINATOR [facility] MCV 101.1(H) 82.0 - 96.0 fL 01/13/2022 12:51 PM CAMPAIGN COORDINATOR [facility] MCH 30.3 26.0 - 34.0 pg 01/13/2022 12:51 PM CAMPAIGN COORDINATOR [facility] MCHC 30.0(L) 31.0 - 36.0 g/dL 01/13/2022 12:51 PM [facility] PLATELET COUNT 323 140 - 440 10(3)/[facility] 01/13/2022 12:51 PM [facility] RDW 13.2 11.8 - 15.5 % 01/13/2022 12:51 PM [facility] MPV 10.2 9.7 - 12.4 fL 01/13/2022 12:51 PM [facility] NEUTROPHILS 90.8(H) 47.0 - 73.0 % 01/13/2022 12:51 PM [facility] LYMPHOCYTES 5.6(L) 18.0 - 42.0 % 01/13/2022 12:51 PM [facility] MONOCYTES 3.2(L) 4.0 - 12.0 % 01/13/2022 12:51 PM [facility] EOSINOPHILS 0.2 0.0 - 5.0 % 01/13/2022 12:51 PM [facility] BASOPHILS 0.2 0.0 - 1.0 % 01/13/2022 12:51 PM [facility] ABSOLUTE NEUTROPHILS 9.35(H) 1.60 - 7.70 10(3)/[facility] 01/13/2022 12:51 PM [facility] ABSOLUTE LYMPHOCYTES 0.58(L) 1.30 - 3.20 10(3)/[facility] 01/13/2022 12:51 PM [facility] ABSOLUTE MONOCYTES 0.33 0.20 - 1.00 10(3)/[facility] 01/13/2022 12:51 PM [facility] ABSOLUTE EOSINOPHIL 0.02 0.00 - 0.40 10(3)/[facility] 01/13/2022 12:51 PM [facility] ABSOLUTE BASOPHILS 0.02 0.00 - 0.10 10(3)/[facility] 01/13/2022 12:51 PM [facility] NRBC PER 100 WBC 0 01/14/20 22 12:51 PM [facility] Blood No Phlebotomy Charged / Unknown 01/13/2022 12:08 PM CAMPAIGN COORDINATOR 01/13/2022 12:43 PM CAMPAIGN COORDINATOR Nicolas Greer MD HEMATOLOGY ORDERABLES Fin al Result Performing Organization Address City/[facility]/ZIP Co de Phone Number [facility] [address] [place] [address] * (ABNORMAL) PARATHYROID HORMONE PTH INTACT (01/13/2022 12:08 PM CAMPAIGN COORDINATOR) PTH INTACT 165(H) 15 - 65 pg/mL 01/13/2022 1:29 PM CAMPAIGN COORDINATOR [facility] Blood No Phlebotomy Charged / Unknown 01/13/2022 12:08 PM CAMPAIGN COORDINATOR 01/13/2022 12:43 PM CAMPAIGN COORDINATOR Nicolas Greer MD CHEMISTRY ORDERABLES Jacqueline l Result Performing Organization Address [facility] Co de Phone Number [facility] [address] [place] [address] * VITAMIN D, 25 HYDROXY TOTAL (01/13/2022 12:08 PM CAMPAIGN COORDINATOR) VITAMIN D, 25 HYDROX 40 >=30 ng/mL 01/13/2022 1:54 PM CAMPAIGN COORDINATOR [facility] Blood No Phlebotomy Charged / Unknown 01/13/2022 12:08 PM CAMPAIGN COORDINATOR 01/13/2022 12:43 PM CAMPAIGN COORDINATOR Narrative [facility] - 01/13/2022 1:54 PM CAMPAIGN COORDINATOR Published reference ranges for Vitamin D vary depending on time and place and method of testing, and on patient's age, sex, ethnicity and levels of other measured analytes such as parathormone, calcium and phosphorus. The result should be evaluated in conjunction with clinical findings and suspicions. [employer] and [employer] Clinical Practice Guidelines: Status Vitamin D levels (ng/mL) Deficient <=20 At risk of inadequacy 21-29 Sufficient 30-100 Centers of Disease Control and Prevention Guidelines: Status Vitamin D levels (ng/mL) Deficient <13 At risk of inadequacy 13-19 Sufficient 20-50 Possibly harmful >50 References: [employer], 2010 Dietary reference intakes for calcium and vitamin D. Sheets [place]: The National Academies Press. Deni M, Wilrfedo N, Belkis العراقي, et al., Evaluation, treatment, and prevention of Vitamin D deficiency: an Endocrinology Clinical Practice Guideline. JCEM 2011 96: 7 2869-6697. Roxana A, Wilton C, Juan D, et al., Vitamin D Status: [place], 7793-7407, [facility] data brief, no. 59, MD Mel: [facility] for Health Statistics. 2011. Nicolas Greer MD CHEMISTRY ORDERABLES Jacqueline l Result Performing Organization Address City/[facility]/ZIP Co de Phone Number [facility] [address] [place] [address] * (ABNORMAL) MAGNESIUM (MG) (01/13/2022 12:08 PM CAMPAIGN COORDINATOR) MAGNESIUM 1.5(L) 1.8 - 2.5 mg/dL 01/13/2022 1:39 PM CAMPAIGN COORDINATOR [facility] Blood No Phlebotomy Charged / Unknown 01/13/2022 12:08 PM CAMPAIGN COORDINATOR 01/13/2022 12:43 PM CAMPAIGN COORDINATOR Nicolas Greer MD CHEMISTRY ORDERABLES Jacqueline l Result [facility] [address] [place] [address] * (ABNORMAL) PHOSPHORUS (PO4) (01/13/2022 12:08 PM CAMPAIGN COORDINATOR) PHOSPHORUS 2.0(L) 2.4 - 4.7 mg/dL 01/13/2022 1:39 PM CAMPAIGN COORDINATOR [facility] Blood No Phlebotomy Charged / Unknown 01/13/2022 12:08 PM CAMPAIGN COORDINATOR 01/13/2022 12:43 PM CAMPAIGN COORDINATOR Nicolas Greer MD CHEMISTRY ORDERABLES Jacqueline l Result [facility] [address] [place] [address] * (ABNORMAL) BASIC METABOLIC PANEL W/ CALCIUM TOTAL (01/13/2022 12:08 PM CAMPAIGN COORDINATOR) SODIUM 142 136 - 144 mmol/L 01/13/2022 1:39 PM CAMPAIGN COORDINATOR [facility] POTASSIUM 4.0 3.5 - 5.1 mmol/L 01/13/2022 1:39 PM CAMPAIGN COORDINATOR [facility] CHLORIDE 98(L) 100 - 110 mmol/L 01/13/2022 1:39 PM [facility] CO2, VENOUS 33(H) 22 - 32 mmol/L 01/13/2022 1:39 PM CAMPAIGN COORDINATOR [facility] ANION GAP 15.0 8.0 - 20.0 mmol/L 01/13/2022 1:39 PM CAMPAIGN COORDINATOR [facility] GLUCOSE 133(H) 70 - 99 mg/dL 01/13/2022 1:39 PM CAMPAIGN COORDINATOR [facility] BUN 15 8 - 23 mg/dL 01/13/2022 1:39 PM [facility] CREATININE, BLOOD 0.89 0.60 - 1.10 mg/dL 01/13/2022 1:39 PM CAMPAIGN COORDINATOR [facility] BUN/CREATININE RATIO 17 12 - 20 ratio 01/13/2022 1:39 PM [facility] CALCIUM 11.5(H) 8.9 - 10.3 mg/dL 01/13/2022 1:39 PM CAMPAIGN COORDINATOR [facility] GFR, ESTIMATED >60 >=60 01/13/2022 1:39 PM CAMPAIGN COORDINATOR [facility] Comment: Creatinine Clearance is the preferred criteria for selecting drug dose adjustments in renally impaired patients. The GFR is provided as additional pertinent clinical information. GFR is reported in mL/min/1.73 sq m. Calculation based on the Chronic Kidney Disease Epidemiology Collaboration (CKD- EPI) equation refit without adjustment for race. GFR, EST. >60 >=60 022 1:39 PM CAMPAIGN COORDINATOR [facility] GFR, EST. NONAFRICAN >60 >=60 01/13/2022 1:39 PM CAMPAIGN COORDINATOR [facility] Blood No Phlebotomy Charged / Unknown 01/13/2022 12:08 PM CAMPAIGN COORDINATOR 01/13/2022 12:43 PM CAMPAIGN COORDINATOR Nicolas Greer MD CHEMISTRY ORDERABLES Jacqueline l Result Performing Organization Address City/[facility]/ZIP Co de Phone Number [facility] [address] [place] [address] * (ABNORMAL) IONIZED CALCIUM (ICA) (01/13/2022 12:08 PM CAMPAIGN COORDINATOR) CALCIUM IONIZED 1.39(H) 1.19 - 1.31 mmol/L 01/13/2022 12:55 PM CAMPAIGN COORDINATOR [facility] Blood No Phlebotomy Charged / Unknown 01/13/2022 12:08 PM CAMPAIGN COORDINATOR 01/13/2022 12:43 PM CAMPAIGN COORDINATOR Result [facility] Nicolas Greer MD CHEMISTRY ORDERABLES Jacqueline l Result Performing Organization Address City/[facility] Co de Phone Number [facility] [address] [place] [address] documented in this encounter Visit Diagnoses Diagnosis Hypercalcemia documented in this encounter Additional Health Concerns Assessment Noted Time PHQ-9 Depression Total Score: 0 02/12/19 20 10:45 AM CAMPAIGN COORDINATOR documented as of this encounter Care Teams Regulator Pin Inserter Relationship Specialty Start Date End Date Nicolas Greer MD #[address] [address] PCP - General Family Medicine 09/08/21 Ariel Christiansen MD Consulting Physician Cardiovascular Disease - Cardiology 07/19/16 [place] [address] [facility] [address] [place] [address] Saturation Diver Pulmonary Disease 06/18/20 Keny Saldaña ENGINEER, MIX TECHNICIAN #[address] [address] Nurse Practitioner Advanced Practice Nurse 09/08/21 Cristian Dewitt MD #[address] [address] Consulting Physician Cardiovascular Disease - Cardiology 10/06/21 02/07/24 Ale Spain, RN [place] Cover Assembler 03/15/22 02/12/23 Ael Spani, RN [place] Nurse Cover Assembler 03/15/22 02/13/23 Yamel Kurtz III, MD #2 [place] [address] Consulting Physician Urology 09/11/22 Raghu Green MD #[address] [place] [phone] Consulting Physician Pulmonary Disease 01/04/22 Warren Osborn MD #[address] [address] Consulting Physician Colon and Rectal Surgery 05/21/23 Ale Spain, RN [place] Nurse Cover Assembler 09/05/23 09/04/24 Chetan Do MD #[address] [phone] Consulting Physician Endocrinology 01/23/24 documented as of this encounter
--- OUTSIDE RECORDS SUMMARY | 2024-09-29 13:36 | XMS_ITS | Encounter Summary ---
Author Organization [facility] Address [address] [place] [place] [address] Phone Care Team Providers Care Women'S Studies Lecturer Name Role Phone Ariel Christiansen MD Unavailable [phone] Parmjit Vogel MD Unavailable [phone] Nicolas Greer MD Primary Care Provider [phone] Keny Saldaña APRN, SPEECH LANG PATH Unavailable Cristian Dewitt MD Unavailable Ale Black RN Unavailable Unavailable Ale Spain RN Unavailable Unavailable Jerardo MCCANN MD, Courtney Unavailable [phone] Raghu Green MD Unavailable Warren Osborn MD Unavailable Ale Spain RN Unavailable Unavailable Chetan Do MD Unavailable Reason for Visit * Reason Comments Medication Refill Encounter Details Date Type Department Care Team (Late st Contact Info) Description 07/27/2022 Refill [facility] #2 [place] [address] Nicolas Greer MD #[address] [address] Medication Refill Social History Tobacco Use Types [...] Job Start Date Job End Date Retired [employer] Not on file Not on file Not [...] [facility] 01/09/22 Telemedicine Keny Saldaña APRN, SPEECH LANG PATH [facility] 12/19/21 Office Visit Nicolas Greer MD [facility] 09/08/21 Office Visit Keny Saldaña APRN, SPEECH LANG PATH [facility] 08/03/21 Telemedicine Nicolas Greer MD [...] [place] 09/08/21 Office Visit Keny Saldaña APRN, SPEECH LANG PATH [facility] 08/03/21 Telemedicine Nicolas Greer MD [...] st Contact Info) Description 02/17/2025 1:00 PM INFORMATION CLERK [employer] Office Visit [facility] - [facility] - [place] #[address] [place] [address] Nicolas Greer MD #[address] [address] 03/23/2025 2:00 PM INFORMATION CLERK [employer] Office Visit [facility] - Pulmonology & Sleep Medicine - [place] #2 [place] [address] Raghu Green MD #[address] [place] [address] documented as of this encounter Visit Diagnoses Not on filedocumented in this encounter Additional Health Concerns Assessment Noted Time PHQ-9 Depression Total Score: 0 02/12/19 20 10:45 AM INFORMATION CLERK [employer] documented as of this encounter Care Teams Women'S Studies Lecturer Relationship Specialty Start Date End Date Nicolas Greer MD #[address] [address] PCP - General Family Medicine 09/08/21 Ariel Christiansen MD Consulting Physician Cardiovascular Disease - Cardiology 07/19/16 [place] [id number] [address] International Accountant Pulmonary Disease 06/18/20 Keny Saldaña APRN, SPEECH LANG PATH #[address] [address] Nurse Practitioner Advanced Practice Nurse 09/08/21 Cristian Dewitt MD #[address] [address] Consulting Physician Cardiovascular Disease - Cardiology 10/06/21 02/07/24 Ale Spain, RN [place] Fiction And Nonfiction Writer Prose 03/15/22 02/12/23 Ale Spain, RN [place] Nurse Fiction And Nonfiction Writer Prose 03/15/22 02/13/23 Yamel Kurtz III, MD #[address] [place] [address] Consulting Physician Urology 09/11/22 Raghu Green MD #[address] [place] [phone] Consulting Physician Pulmonary Disease 01/04/22 Warren Osborn MD #[address] [address] Consulting Physician Colon and Rectal Surgery 05/21/23 Ale Spain RN [place] Nurse Fiction And Nonfiction Writer Prose 09/05/23 09/04/24 Chetan Do MD #[address] [address] Consulting Physician Endocrinology 01/23/24 documented as of this encounter
--- OUTSIDE RECORDS SUMMARY | 2024-09-29 13:36 | XMS_ITS | Encounter Summary ---
Author Organization [facility] Address [address] [place] [address] Phone Care Team Providers Care Spectrographic Analyst Name Role Phone Ariel Christiansen MD Unavailable [phone] Parmjit Vogel MD Unavailable [phone] Nicolas Greer MD Primary Care Provider [phone] Keny Saldaña APRN, MOTOR RACER Unavailable Cristian Dewitt MD Unavailable Ale Black RN Unavailable Unavailable Ale Spain RN Unavailable Unavailable Jerardo MCCANN MD, Courtney Unavailable [phone] Raghu Green MD Unavailable Warren Osborn MD Unavailable Ale Spain RN Unavailable Unavailable Chetan Do MD Unavailable Encounter Details Date Type Department Care Team (Late st Contact Info) Description 01/02/2022 Lab Requisition [facility] Laboratory Services [address] [place] [address] Nicolas Greer MD [address] [address] Acute and chronic respiratory failure with hypoxia [...] Job Start Date Job End Date Retired [employer] Not on file Not on file Not on file COVID-19 Exposure Response Date Recorded In the last 10 days, have yo u been in contact with someone who was confirmed or suspected to have Coronavirus/COVID-19? No / Unsure 01/05/2022 8:15 AM COPPER MINER documented as of this encounter Plan of Treatment Upcoming Encounters Date Type Department Care Team (Late st Contact Info) Description 02/17/2025 1:00 PM COPPER MINER [facility] Visit [facility] - [place] [address]2 [place] [address] Nicolas Greer MD #[address] [address] 03/23/2025 2:00 PM COPPER MINER Office Visit [facility] - Pulmonology & Sleep Medicine [facility] #2 [place] [address] Raghu Green MD #2 [place] [address] documented as of this encounter Procedures Procedure Name Priority Date/Time Associated Diagnosis Comments CBC WITH AUTO DIFFERENTIAL Routine 01/02/2022 9:30 AM COPPER MINER Acute and chronic respiratory failure with hypoxia (HCC) PHOSPHORUS (PO4) Routine 01/02/2022 9:30 AM COPPER MINER Acute and chronic respiratory failure with hypoxia (HCC) MAGNESIUM (MG) Routine 01/02/2022 9:30 AM COPPER MINER Acute and chronic respiratory failure with hypoxia (HCC) COMPLETE BLOOD COUNT (CBC) WITH DIFF Routine 01/02/2022 9:30 AM COPPER MINER Acute and chronic respiratory failure with hypoxia (HCC) BASIC METABOLIC PANEL W/ CALCIUM TOTAL Routine 01/02/2022 9:30 AM COPPER MINER Acute and chronic respiratory failure with hypoxia (HCC) documented in this encounter Results * (ABNORMAL) CBC WITH AUTO DIFFERENTIAL (01/02/2022 9:30 AM COPPER MINER) WBC 12.96(H) 4.00 - 12.00 10(3)/mcL 01/02/2022 11:06 AM [facility] RBC 4.13 3.80 - 5.30 10(6)/mcL 01/02/2022 11:06 AM [facility] HEMOGLOBIN (HGB) 12.5 12.0 - 15.8 g/dL 01/02/2022 11:06 AM [facility] HEMATOCRIT (HCT) 41.1 36.0 - 47.0 % 01/02/2022 11:06 AM [facility] MCV 99.5(H) 82.0 - 96.0 fL 01/02/2022 11:06 AM [facility] MCH 30.3 26.0 - 34.0 pg 01/02/2022 11:06 AM [facility] MCHC 30.4(L) 31.0 - 36.0 g/dL 01/02/2022 11:06 AM [facility] PLATELET COUNT 353 140 - 440 10(3)/mcL 01/02/2022 11:06 AM [facility] RDW 13.2 11.8 - 15.5 % 01/02/2022 11:06 AM [facility] MPV 9.9 9.7 - 12.4 fL 01/02/2022 11:06 AM [facility] NEUTROPHILS 74.8(H) 47.0 - 73.0 % 01/02/2022 11:06 AM [facility] LYMPHOCYTES 16.4(L) 18.0 - 42.0 % 01/02/2022 11:06 AM [facility] MONOCYTES 7.8 4.0 - 12.0 % 01/02/2022 11:06 AM [facility] EOSINOPHILS 0.7 0.0 - 5.0 % 01/02/2022 11:06 AM [facility] BASOPHILS 0.3 0.0 - 1.0 % 01/02/2022 11:06 AM [facility] ABSOLUTE NEUTROPHILS 9.69(H) 1.60 - 7.70 10(3)/[facility] 01/02/2022 11:06 AM [facility] ABSOLUTE LYMPHOCYTES 2.13 1.30 - 3.20 10(3)/[facility] 01/02/2022 11:06 AM [facility] ABSOLUTE MONOCYTES 1.01(H) 0.20 - 1.00 10(3)/[facility] 01/02/2022 11:06 AM [facility] ABSOLUTE EOSINOPHIL 0.09 0.00 - 0.40 10(3)/[facility] 01/02/2022 11:06 AM [facility] ABSOLUTE BASOPHILS 0.04 0.00 - 0.10 10(3)/[facility] 01/02/2022 11:06 AM [facility] NRBC PER 100 WBC 0 01/03/20 11:06 AM [facility] Blood No Phlebotomy Charged / Unknown 01/02/2022 9:30 AM COPPER MINER 01/02/2022 11:02 AM COPPER MINER [facility] Dalton Greer MD HEMATOLOGY ORDERABLES Fin al Result Performing Organization Address City/[facility] Co de Phone Number [facility] [address] [place] [address] * (ABNORMAL) MAGNESIUM (MG) (01/02/2022 9:30 AM COPPER MINER) MAGNESIUM 1.6(L) 1.8 - 2.5 mg/dL 01/02/2022 11:27 AM COPPER MINER [facility] Blood No Phlebotomy Charged / Unknown 01/02/2022 9:30 AM COPPER MINER 01/02/2022 11:02 AM COPPER MINER Nicolas Greer MD CHEMISTRY ORDERABLES Jacqueline l Result Performing Organization Address [facility] Co de Phone Number [facility] [address] [place] [address] * PHOSPHORUS (PO4) (01/02/2022 9:30 AM COPPER MINER) PHOSPHORUS 2.8 2.4 - 4.7 mg/dL 01/02/2022 11:27 AM COPPER MINER [facility] Blood No Phlebotomy Charged / Unknown 01/02/2022 9:30 AM COPPER MINER 01/02/2022 11:02 AM COPPER MINER Nicolas Greer MD CHEMISTRY ORDERABLES Jacqueline l Result Performing Organization Address City/[facility]/ZIP Co de Phone Number [facility] [address] [place] [address] * (ABNORMAL) BASIC METABOLIC PANEL W/ CALCIUM TOTAL (01/02/2022 9:30 AM COPPER MINER) SODIUM 138 136 - 144 mmol/L 01/02/2022 11:27 AM COPPER MINER [facility] POTASSIUM 4.2 3.5 - 5.1 mmol/L 01/02/2022 11:27 AM COPPER MINER [facility] CHLORIDE 92(L) 100 - 110 mmol/L 01/02/2022 11:27 AM [facility] CO2, VENOUS 40(H) 22 - 32 mmol/L 01/02/2022 11:27 AM [facility] ANION GAP 10.2 8.0 - 20.0 mmol/L 01/02/2022 11:27 AM [facility] GLUCOSE 129(H) 70 - 99 mg/dL 01/02/2022 11:27 AM [facility] BUN 24(H) 8 - 23 mg/dL 01/02/2022 11:27 AM [facility] CREATININE, BLOOD 1.06 0.60 - 1.10 mg/dL 01/02/2022 11:27 AM [facility] BUN/CREATININE RATIO 23(H) 12 - 20 ratio 01/02/2022 11:27 AM [facility] CALCIUM 12.4(HH) 8.9 - 10.3 mg/dL 01/02/2022 11:27 AM [facility] GFR, ESTIMATED 55(L) >=60 01/02/2022 11:27 AM [facility] Comment: Creatinine Clearance is the preferred criteria for selecting drug dose adjustments in renally impaired patients. The GFR is provided as additional pertinent clinical information. GFR is reported in mL/min/1.73 sq m. Calculation based on the Chronic Kidney Disease Epidemiology Collaboration (CKD- EPI) equation refit without adjustment for race. GFR, EST. >60 >=60 022 11:27 AM [facility] GFR, EST. NONAFRICAN 51(L) >=60 01/02/2022 11:27 AM [facility] Blood No Phlebotomy Charged / Unknown 01/02/2022 9:30 AM COPPER MINER 01/02/2022 11:02 AM COPPER MINER Nicolas Greer MD CHEMISTRY ORDERABLES Jacqueline l Result [facility] [address] [place] [address] documented in this encounter Visit Diagnoses Diagnosis Acute and chronic respiratory failure with hypoxia (HCC) Acute and chronic respiratory failure documented in this encounter Additional Health Concerns Assessment Noted Time PHQ-9 Depression Total Score: 0 02/12/19 20 10:45 AM COPPER MINER documented as of this encounter Care Teams Spectrographic Analyst Relationship Specialty Start Date End Date Nicolas Greer MD #[address] [address] PCP - General Family Medicine 09/08/21 Ariel Christiansen MD Consulting Physician Cardiovascular Disease - Cardiology 07/19/16 [place] [id number] [address] Senior Engineering Technician Pulmonary Disease 06/18/20 Keny Saldaña APRN, MOTOR RACER #[address] [address] Nurse Practitioner Advanced Practice Nurse 09/08/21 Cristian Dewitt MD #[address] [address] Consulting Physician Cardiovascular Disease - Cardiology 10/06/21 02/07/24 Ale Spain, RN [place] Operator Engineer 03/15/22 02/12/23 Ale Spain, RN [place] Nurse Operator Engineer 03/15/22 02/13/23 Yamel Kurtz III, MD #2 [place] [address] Consulting Physician Urology 09/11/22 Raghu Green MD #2 [place] [address] Consulting Physician Pulmonary Disease 01/04/22 Warren Osborn MD #[address] [address] Consulting Physician Colon and Rectal Surgery 05/21/23 Ale Spain RN [place] Nurse Operator Engineer 09/05/23 09/04/24 Chetan Do MD #[address] [address] Consulting Physician Endocrinology 01/23/24 documented as of this encounter
--- OUTSIDE RECORDS SUMMARY | 2024-09-29 13:36 | XMS_ITS | Encounter Summary ---
Author Organization [facility] Address [address] [place] [address] Phone Care Team Providers Care Fire Supervisor Name Role Phone Nicolas Greer MD Primary Care Provider [phone] Ariel Christiansen MD Unavailable [phone] Parmjit Vogel MD Unavailable [phone] Nicolas Greer MD Primary Care Provider [phone] Keny Saldaña APRN, HOT TAMALE MAN Unavailable Cristian Dewitt MD Unavailable Ale Black RN Unavailable Unavailable Ale Spain RN Unavailable Unavailable Jerardo MCCANN MD, Courtney Unavailable [phone] Raghu Green MD Unavailable Warren Osborn MD Unavailable Ale Spain RN Unavailable Unavailable Chetan Do MD Unavailable Reason for Visit * Reason Comments Medication Refill Encounter Details Date Type Department Care Team (Late st Contact Info) Description 08/04/2021 Refill [facility] #2 [place] [address] Nicolas Greer MD [address] [place] [address] Medication Refill Social History Tobacco Use Types [...] Job Start Date Job End Date Retired [employer] Not on file Not on file Not [...] Provider Dept 08/03/21 Telemedicine Nicolas Greer MD [facility] 07/21/21 Telemedicine [facility] MD [facility] 04/28/21 Telemedicine Nicolas Greer MD [facility] [...] st Contact Info) Description 02/17/2025 1:00 PM JUNIOR BRAND MANAGER Office Visit [facility] - Family Medicine - [place] #2 [place] [address] Nicolas Greer MD #[address] [address] 03/23/2025 2:00 PM JUNIOR BRAND MANAGER Office Visit [facility] - Pulmonology & Sleep Medicine - [place] #2 [place] [address] Raghu Green MD #2 [place] [address] documented as of this encounter Visit Diagnoses Not on filedocumented in this encounter Additional Health Concerns Infection Onset Date Last Indicated Resolved Time COVID - 19 09/02/2021 09/02/2021 09/03/2021 2:05 PM CDT COVID - 19 12/24/2021 12/24/2021 12/26/2021 8:07 AM JUNIOR BRAND MANAGER Respiratory Rule Out - RPA 12/24/2021 12/24/2021 1 02/24/2021 4:41 PM JUNIOR BRAND MANAGER Influenza 12/24/2021 12/24/2021 12/31/2021 12:1 6 AM JUNIOR BRAND MANAGER Assessment Noted Time PHQ-9 Depression Total Score: 0 02/12/19 20 10:45 AM JUNIOR BRAND MANAGER documented as of this encounter Care Teams Fire Supervisor Relationship Specialty Start Date End Date Nicolas Greer MD #[address] [address] PCP - General Family Medicine 12/22/14 09/07/21 Nicolas Greer MD #[address] [address] PCP - General Family Medicine 09/08/21 Ariel Christiansen MD #[address] [address] Consulting Physician Cardiovascular Disease - Cardiology 07/19/16 [place] [address] [address] Relationship Assoc Pulmonary Disease 06/18/20 Keny Saldaña APRN, HOT TAMALE MAN #[address] [address] Nurse Practitioner Advanced Practice Nurse 09/08/21 Cristian Dewitt MD #[address] [address] Consulting Physician Cardiovascular Disease - Cardiology 10/06/21 02/07/24 Ale Spain, RN [place] Manager Digital 03/15/22 02/12/23 Ale Spain, RN [place] Nurse Manager Digital 03/15/22 02/13/23 Yamel Kurtz III, MD #2 [place] [address] Consulting Physician Urology 09/11/22 Raghu Green MD #2 [place] [address] Consulting Physician Pulmonary Disease 01/04/22 Warren Osborn MD #[address] [address] Consulting Physician Colon and Rectal Surgery 05/21/23 Ale Spain RN [place] Nurse Manager Digital 09/05/23 09/04/24 Chetan Do MD #[address] [id number] Consulting Physician Endocrinology 01/23/24 documented as of this encounter
--- OUTSIDE RECORDS SUMMARY | 2024-09-29 13:36 | XMS_ITS | Encounter Summary ---
Author Organization [facility] Address [address] [place] [address] Phone Care Team Providers Care Seat Mender Name Role Phone Nicolas Greer MD Primary Care Provider [phone] Ariel Christiansen MD Unavailable [phone] Parmjit Vogel MD Unavailable [phone] Nicolas Greer MD Primary Care Provider [phone] Keny Saldaña APRN, RECOVERY AGENT Unavailable Cristian Dewitt MD Unavailable Ale Black RN Unavailable Unavailable Ale Spain RN Unavailable Unavailable Jerardo MCCANN MD, Courtney Unavailable [phone] Raghu Green MD Unavailable Warren Osborn MD Unavailable Ale Spain RN Unavailable Unavailable Chetan Do MD Unavailable Reason for Visit * Reason Comments Medication Refill Encounter Details Date Type Department Care Team (Late st Contact Info) Description 03/09/2020 Refill [facility] #2 [place] [address] Nicolas Greer MD [address] [place] [id number] Medication Refill Social History Tobacco Use Types [...] Job Start Date Job End Date Retired [employer] Not on file Not on file Not on file COVID-19 Exposure Response Date Recorded In the last month, have you been in contact with someone who was confirmed or suspected to have Coronavirus / COVID-19? No / Unsure 03/11/2020 9:15 AM ROOFING SUBCONTRACTOR documented as of this encounter Miscellaneous Notes [...] 4 months ago Hyperlipidemia, unspecified hyperlipidemia type [facility] - [facility] - Nicolas Waters MD 7 months ago Pulmonary emphysema, unspecified emphysema type (HCC) [facility] - Keny Crowder APN, RECOVERY AGENT 9 months ago Ptosis of both eyelids [facility] Medicine - Keny Crowder APN, RECOVERY AGENT 1 year ago Hypothyroidism, unspecified type [facility] Medicine - Nicolas Waters MD 1 year ago Non-insulin dependent type 2 diabetes mellitus (HCC) [facility] Nicolas Waters MD Upcoming Appointments Future Appointments In 2 days [facility] CREAM BEATER - Recent and Past Visits Recent Visits Date Type Provider Dept 10/14/19 Office Visit Nicolas Greer MD [facility] 07/14/19 Office Visit Keny Saldaña APN, MARY [facility] 05/22/19 Telemedicine Keny Saldaña APN, CNP [facility] 02/12/19 Office [...] 4 months ago Hyperlipidemia, unspecified hyperlipidemia type [facility] Nicolas Waters MD 7 months ago Pulmonary emphysema, unspecified emphysema type (HCC) [facility] Keny Crowder APN, CNP 9 months ago Ptosis of both eyelids [facility] Keny Esteves APN, CNP 1 year ago Hypothyroidism, unspecified type [facility] Nicolas Waters MD 1 year ago Non-insulin dependent type 2 diabetes mellitus (HCC) [facility] Nicolas Waters MD Upcoming Appointments Future Appointments In 2 days Nicolas Greer MD [facility]ATER - Recent and Past Visits Recent Visits [...] 4 months ago Hyperlipidemia, unspecified hyperlipidemia type [facility] - Nicolas Waters MD 7 months ago Pulmonary emphysema, unspecified emphysema type (HCC) [facility] - Keny Crowder APN, MARY 9 months ago Ptosis of both eyelids [facility], MARY 1 year ago Hypothyroidism, unspecified type [facility] Nicolas Waters MD 1 year ago Non-insulin dependent type 2 diabetes mellitus (HCC) [facility] Nicolas Waters MD Upcoming Appointments Future Appointments In 2 days Nicolas Greer MD [facility] CREAM BEATER - Recent and Past Visits Recent Visits Date Type Provider Dept 10/14/19 Office Visit Nicolas Greer MD [facility] 07/14/19 Office Visit Keny Saldaña APN, MARY [facility] 05/22/19 Telemedicine Keny Saldaña APN, RECOVERY AGENT [facility] 02/12/19 Office Visit Nicolas Greer MD [facility] Showing recent visits within past 460 days with a meds authorizing provider and meeting all other requirements Future Appointments Date Type Provider Dept 03/11/20 Appointment Nicolas Greer MD [facility] Showing future appointments within next 90 days with a meds authorizing provider and meeting all other requirements ING SUBCONTRACTOR * Telephone Encounter - Kayla Meehan RN - 03/09/2020 11:37 AM CST Medication approved and signed per standing order protocol. ING SUBCONTRACTOR documented in this encounter Plan of Treatment Upcoming Encounters Date Type Department Care Team (Late st Contact Info) Description 02/17/2025 1:00 PM ROOFING SUBCONTRACTOR Office Visit [facility] - Family Medicine - [place] #2 [place] [address] Nicolas Greer MD #[address] [address] 03/23/2025 2:00 PM ROOFING SUBCONTRACTOR Office Visit [facility] - Pulmonology & Sleep Medicine [facility] #2 [place] [address] Raghu Green MD #2 [place] [address] documented as of this encounter Visit Diagnoses Diagnosis Pulmonary emphysema, unspecified emphysema type (HCC) documented in this encounter Additional Health Concerns Infection Onset Date Last Indicated Resolved Time COVID - 19 03/11/2020 03/11/2020 03/31/2020 12:1 8 AM ROOFING SUBCONTRACTOR COVID - 19 09/02/2021 09/02/2021 09/03/2021 2:05 PM CDT COVID - 19 12/24/2021 12/24/2021 12/26/2021 8:07 AM ROOFING SUBCONTRACTOR Respiratory Rule Out - RPA 12/24/2021 12/24/2021 1 02/24/2021 4:41 PM ROOFING SUBCONTRACTOR Influenza 12/24/2021 12/24/2021 12/31/2021 12:1 6 AM ROOFING SUBCONTRACTOR Assessment Noted Time PHQ-9 Depression Total Score: 0 02/12/19 10:45 AM ROOFING SUBCONTRACTOR documented as of this encounter Care Teams Seat Mender Relationship Specialty Start Date End Date Nicolas Greer MD #[address] [address] PCP - General Family Medicine 12/22/14 09/07/21 Nicolas Greer MD #[address] [address] PCP - General Family Medicine 09/08/21 Ariel Christiansen MD #[address] [address] Consulting Physician Cardiovascular Disease - Cardiology 07/19/16 [place] [address] [address] Side Laster Tack Pulmonary Disease 06/18/20 Keny Saldaña APRN, RECOVERY AGENT #[address] [address] Nurse Practitioner Advanced Practice Nurse 09/08/21 Cristian Dewitt MD #[address] [address] Consulting Physician Cardiovascular Disease - Cardiology 10/06/21 02/07/24 Ale Spain, RN [place] Tube Making Machine Operator 03/15/22 02/12/23 Ale Spain, RN [place] Nurse Tube Making Machine Operator 03/15/22 02/13/23 Yamel Kurtz III, MD #2 [place] [address] Consulting Physician Urology 09/11/22 Raghu Green MD #[address] [place] [address] Consulting Physician Pulmonary Disease 01/04/22 Warren Osborn MD #[address] [address] Consulting Physician Colon and Rectal Surgery 05/21/23 Ale Spain, RN [place] Nurse Tube Making Machine Operator 09/05/23 09/04/24 Chetan Do MD #[address] [phone] Consulting Physician Endocrinology 01/23/24 documented as of this encounter
--- OUTSIDE RECORDS SUMMARY | 2024-09-29 13:36 | XMS_ITS | Encounter Summary ---
Author Organization [facility] Address [address] [place] [address] Phone Care Team Providers Care Project Administrator Name Role Phone Nicolas Greer MD Primary Care Provider [phone] Ariel Christiansen MD Unavailable [phone] Parmjit Vogel MD Unavailable [phone] Nicolas Greer MD Primary Care Provider [phone] Keny Saldaña APRN, FIELD COLLECTOR Unavailable Cristian Dewitt MD Unavailable Ale Black RN Unavailable Unavailable Ale Spain RN Unavailable Unavailable Jerardo MCCANN MD, Courtney Unavailable [phone] Raghu Green MD Unavailable Warren Osborn MD Unavailable Ale Spain RN Unavailable Unavailable Chetan Do MD Unavailable Reason for Visit * Reason Comments Medication Refill Encounter Details Date Type Department Care Team (Late st Contact Info) Description 04/01/2021 Refill [facility] #2 [place] [address] Nicolas Greer MD #[address] [place] [id number] Medication Refill Social History Tobacco Use Types [...] Industry Job Start Date Job End Date [employer] Not on file Not on file Not [...] 90 days and meeting all other requirements LE LASTER documented in this encounter Plan of Treatment Upcoming Encounters Date Type Department Care Team (Late st Contact Info) Description 02/17/2025 1:00 PM STAPLE LASTER Office Visit [facility] - Family Medicine [facility] #2 [place] [address] Nicolas Greer MD #[address] [address] 03/23/2025 2:00 PM STAPLE LASTER Office Visit [facility] - Pulmonology & Sleep Medicine [facility] #2 [place] [address] Raghu Green MD #2 [place] [address] documented as of this encounter Visit Diagnoses Diagnosis Pulmonary emphysema, unspecified emphysema type (HCC) documented in this encounter Additional Health Concerns Infection Onset Date Last Indicated Resolved Time COVID - 19 09/02/2021 09/02/2021 09/03/2021 2:05 PM CDT COVID - 19 12/24/2021 12/24/2021 12/26/2021 8:07 AM STAPLE LASTER Respiratory Rule Out - RPA 12/24/2021 12/24/2021 1 02/24/2021 4:41 PM STAPLE LASTER Influenza 12/24/2021 12/24/2021 12/31/2021 12:1 6 AM STAPLE LASTER Assessment Noted Time PHQ-9 Depression Total Score: 0 02/12/19 10:45 AM STAPLE LASTER documented as of this encounter Care Teams Project Administrator Relationship Specialty Start Date End Date Nicolas Greer MD #[address] [address] PCP - General Family Medicine 12/22/14 09/07/21 Nicolas Greer MD #[address] [address] PCP - General Family Medicine 09/08/21 Ariel Christiansen MD #[address] [address] Consulting Physician Cardiovascular Disease - Cardiology 07/19/16 [place] [address] [address] Diesel Locomotive Firer/Fireman Pulmonary Disease 06/18/20 Keny Saldaña APRN, FIELD COLLECTOR #[address] [address] Nurse Practitioner Advanced Practice Nurse 09/08/21 Cristian Dewitt MD #[address] [address] Consulting Physician Cardiovascular Disease - Cardiology 10/06/21 02/07/24 Ale Spain, RN [place] Speech Language Pathology Assistant 03/15/22 02/12/23 Ale Spain, RN [place] Nurse Speech Language Pathology Assistant 03/15/22 02/13/23 Yamel Kurtz III, MD #2 [place] [address] Consulting Physician Urology 09/11/22 Raghu Green MD #2 [place] [address] Consulting Physician Pulmonary Disease 01/04/22 Warren Osborn MD #[address] [address] Consulting Physician Colon and Rectal Surgery 05/21/23 Ale Spain RN [place] Nurse Speech Language Pathology Assistant 09/05/23 09/04/24 Chetan Do MD #[address] [address] Consulting Physician Endocrinology 01/23/24 documented as of this encounter
--- OUTSIDE RECORDS SUMMARY | 2024-09-29 13:36 | XMS_ITS | Encounter Summary ---
Author Organization [facility] Address [address] [place] [address] Phone Care Team Providers Care Sqe Name Role Phone Ariel Christiansen MD Unavailable [phone] Parmjit Vogel MD Unavailable [phone] Nicolas Greer MD Primary Care Provider [phone] Keny Saldaña APRN, INDUSTRIAL WORKERS Unavailable Cristian Dewitt MD Unavailable Ale Black RN Unavailable Unavailable Ale Spain RN Unavailable Unavailable Jerardo MCCANN MD, Courtney Unavailable [phone] Raghu Green MD Unavailable Warren Osborn MD Unavailable Ale Spain RN Unavailable Unavailable Chetan Do MD Unavailable Encounter Details Date Type Department Care Team (Late st Contact Info) Description 01/19/2022 Lab Requisition [facility] Services [address] [place] [address] Nicolas Greer MD #[address] [address] Hypercalcemia Social History Tobacco Use Types Packs/Day [...] Industry Job Start Date Job End Date [employer] Not on file Not on file Not on file COVID-19 Exposure Response Date Recorded In the last 10 days, have yo u been in contact with someone who was confirmed or suspected to have Coronavirus/COVID-19? No / Unsure 01/17/2022 4:43 PM DENTAL LABORATORY TECHNOLOGY TEACHER documented as of this encounter Plan of Treatment Upcoming Encounters Date Type Department Care Team (Late st Contact Info) Description 02/17/2025 1:00 PM DENTAL LABORATORY TECHNOLOGY TEACHER Office Visit [facility] - Family Medicine - [place] #2 [place] [address] Nicolas Greer MD #[address] [address] 03/23/2025 2:00 PM DENTAL LABORATORY TECHNOLOGY TEACHER Office Visit [facility] - Pulmonology & Sleep Medicine [facility] #2 [place] [address] Raghu Green MD #2 [place] [address] documented as of this encounter Procedures Procedure Name Priority Date/Time Associated Diagnosis Comments BASIC METABOLIC PANEL W/ CALCIUM TOTAL Routine 01/19/2022 9:22 AM DENTAL LABORATORY TECHNOLOGY TEACHER Hypercalcemia documented in this encounter Results * (ABNORMAL) BASIC METABOLIC PANEL W/ CALCIUM TOTAL (01/19/2022 9:22 AM [facility]) SODIUM 139 136 - 144 mmol/L 01/19/2022 10:53 AM [facility] POTASSIUM 4.1 3.5 - 5.1 mmol/L 01/19/2022 10:53 AM [facility] CHLORIDE 95(L) 100 - 110 mmol/L 01/19/2022 10:53 AM [facility] CO2, VENOUS 38(H) 22 - 32 mmol/L 01/19/2022 10:53 AM [facility] ANION GAP 10.1 8.0 - 20.0 mmol/L 01/19/2022 10:53 AM [facility] GLUCOSE 112(H) 70 - 99 mg/dL 01/19/2022 10:53 AM [facility] BUN 17 8 - 23 mg/dL 01/19/2022 10:53 AM [facility] CREATININE, BLOOD 0.84 0.60 - 1.10 mg/dL 01/19/2022 10:53 AM [facility] BUN/CREATININE RATIO 20 12 - 20 ratio 01/19/2022 10:53 AM [facility] CALCIUM 10.7(H) 8.9 - 10.3 mg/dL 01/19/2022 10:53 AM [facility] GFR, ESTIMATED >60 >=60 01/19/2022 10:53 AM [facility] Comment: Creatinine Clearance is the preferred criteria for selecting drug dose adjustments in renally impaired patients. The GFR is provided as additional pertinent clinical information. GFR is reported in mL/min/1.73 sq m. Calculation based on the Chronic Kidney Disease Epidemiology Collaboration (CKD- EPI) equation refit without adjustment for race. GFR, EST. >60 >=60 022 10:53 AM [facility] GFR, EST. NONAFRICAN >60 >=60 01/19/2022 10:53 AM [facility] Blood No Phlebotomy Charged / Unknown 01/19/2022 9:22 AM DENTAL LABORATORY TECHNOLOGY TEACHER 01/19/2022 10:34 AM DENTAL LABORATORY TECHNOLOGY TEACHER Nicolas Greer MD CHEMISTRY ORDERABLES Jacqueline l Result [facility]1 [place] [address] documented in this encounter Visit Diagnoses Diagnosis Hypercalcemia documented in this encounter Additional Health Concerns Assessment Noted Time PHQ-9 Depression Total Score: 0 02/12/19 10:45 AM DENTAL LABORATORY TECHNOLOGY TEACHER documented as of this encounter Care Teams Sqe Relationship Specialty Start Date End Date Nicolas Greer MD #[address] [address] PCP - General Family Medicine 09/08/21 Ariel Christiansen MD Consulting Physician Cardiovascular Disease - Cardiology 07/19/16 [place] [address] [address] Grid Inspector Pulmonary Disease 06/18/20 Keny Saldaña APRN, INDUSTRIAL WORKERS #[address] [address] Nurse Practitioner Advanced Practice Nurse 09/08/21 Cristian Dewitt MD #[address] [address] Consulting Physician Cardiovascular Disease - Cardiology 10/06/21 02/07/24 Ale Spain, W[place] Drill Operator 03/15/22 02/12/23 Ale Spain RN [place] Nurse Drill Operator 03/15/22 02/13/23 Yamel Kurtz III, MD #2 [place] [address] Consulting Physician Urology 09/11/22 Raghu Green MD #2 [place] [address] Consulting Physician Pulmonary Disease 01/04/22 Warren Osborn MD #[address] [address] Consulting Physician Colon and Rectal Surgery 05/21/23 Ale Spain RN [place] Nurse Drill Operator 09/05/23 09/04/24 Chetan Do MD #[address] [phone] Consulting Physician Endocrinology 01/23/24 documented as of this encounter
--- OUTSIDE RECORDS SUMMARY | 2024-09-29 13:36 | XMS_ITS | Encounter Summary ---
Author Organization [facility] [employer] [facility] Address [address] [place] [address] Phone Care Team Providers Care Hand Riveter Name Role Phone Nicolas Greer MD MPH Primary Care Provider [phone] Reason for Visit * Reason Comments Med Refill Encounter Details Date Type Department Care Team (Late st Contact Info) Description 12/18/2022 Refill [facility] [address] [address] Arnav Lunsford DO [address] [place] [address] Social History Tobacco Use Types Packs/Day Years [...] Description 10/08/2024 1:00 PM CDT Office Visit [place] [employer] [address] [place] [address] Jorge Rabago MD [address] [place] [address] [address] [place] [address] documented as of this encounter Visit Diagnoses Not on filedocumented in this encounter Care Teams Hand Riveter Relationship Specialty Start Date End Date Nicolas Greer MD MPH [address] [address] PCP - General Family Medicine 01/04/22 documented as of this encounter
--- OUTSIDE RECORDS SUMMARY | 2024-09-29 13:36 | XMS_ITS | Encounter Summary ---
Author Organization [facility] Address [address] [place] [address] Phone Care Team Providers Care Cement Based Materials Pump Tender Name Role Phone Ariel Christiansen MD Unavailable [phone] Parmjit Vogel MD Unavailable [phone] Nicolas Greer MD Primary Care Provider [phone] Keny Saldaña APRN, CNP Unavailable Jerardo MCCANN MD, Courtney Unavailable [phone] Raghu Green MD Unavailable Warren Osborn MD Unavailable Ale Spain RN Unavailable Unavailable Chetan Do MD Unavailable Reason for Visit * Reason Comments Medication Refill Encounter Details Date Type Department Care Team (Late st Contact Info) Description 04/02/2024 Refill [facility] - Family Medicine [facility] #2 [place] [address] Nicolas Greer MD #[address] [address] Medication Refill Social History Tobacco Use Types Packs/Day Years Used Date Smoking Tobacco: Former Cigarettes 0.5 50 1 957 - 2006 Smokeless Tobacco: Never Alcohol Use Standard Drinks/Week Comments No 0 (1 standard drink = 0.6 oz pur e alcohol) [facility] Utilities Answer Date Recorded In [...] week 03/03/2024 How often do you attend zoroastrian or anabaptism serv ices? Never 03/03/2024 Do you belong to any clubs o r organizations such as zoroastrian groups, unions, fraternal or athletic groups, or [...] Total Score - Questions 1-9 0 02/06 [facility] [place] of Occupat ional Health - Occupational Stress [...] any time in the past 12 m [facility], were you homeless or living in a fci (including now)? No 03/03/2024 Education Answer Date [...] Job Start Date Job End Date Retired [employer] Not on file Not on file Not on file documented as of this encounter Plan of Treatment Upcoming Encounters Date Type Department Care Team (Late st Contact Info) Description 02/17/2025 1:00 PM SHIPPER/RECEIVER Office Visit [facility] Medical [facility] Family Medicine [facility] #2 [place] [address] Nicolas Greer MD #[address] [address] 03/23/2025 2:00 PM SHIPPER/RECEIVER Office Visit [facility] - Pulmonology & Sleep Medicine [facility] #2 [place] [address] Raghu Green MD #2 [place] [address] documented as of this encounter Visit Diagnoses Diagnosis Depression with anxiety Dysthymic disorder Depression, unspecified depression type documented in this encounter Additional Health Concerns Assessment Noted Time PHQ-9 Depression Total Score: 0 03/03/19 25 3:34 PM SHIPPER/RECEIVER documented as of this encounter Care Teams Cement Based Materials Pump Tender Relationship Specialty Start Date End Date Nicolas Greer MD #[address] [address] PCP - General Family Medicine 09/08/21 Ariel Christiansen MD Consulting Physician Cardiovascular Disease - Cardiology 07/19/16 [place] [address] [address] Ethylbenzene Oxidizer Pulmonary Disease 06/18/20 Keny Saldaña, SPINNING BATH PATROLLER, ALMOND GRINDER #[address] [address] Nurse Practitioner Advanced Practice Nurse 09/08/21 Yamel Kurtz III, MD #2 [place] [address] Consulting Physician Urology 09/11/22 Raghu Green MD #2 [place] [address] Consulting Physician Pulmonary Disease 01/04/22 Warren Osborn MD #[address] [address] Consulting Physician Colon and Rectal Surgery 05/21/23 Ale Spain RN [place] Nurse Distribution Tech 09/05/23 09/04/24 Chetan Do MD #[address] [phone] Consulting Physician Endocrinology 01/23/24 documented as of this encounter
--- OUTSIDE RECORDS SUMMARY | 2024-09-29 13:36 | XMS_ITS | Encounter Summary ---
Author Organization [facility] Address [address] [place] [place] [address] Phone Care Team Providers Care Genomics Scientist Name Role Phone Ariel Christiansen MD Unavailable [phone] Parmjit Vogel MD Unavailable [phone] Nicolas Greer MD Primary Care Provider [phone] Keny Saldaña APRN, SOFTWARE TOOLS ENGINEER Unavailable Cristian Dewitt MD Unavailable Ale Black RN Unavailable Unavailable Ale Spain RN Unavailable Unavailable Jerardo MCCANN MD, Courtney Unavailable [phone] Raghu Green MD Unavailable Warren Osborn MD Unavailable Ale Spain RN Unavailable Unavailable Chetan Do MD Unavailable Reason for Visit * Reason Comments Medication Refill Encounter Details Date Type Department Care Team (Late st Contact Info) Description 03/01/2022 Refill [facility] - [facility] #2 [place] [address] Nicolas Greer MD #[address] [address] Medication Refill Social History Tobacco Use Types [...] Job Start Date Job End Date Retired [employer] Not on file Not on file Not on file COVID-19 Exposure Response Date Recorded In the last 10 days, have yo u been in contact with someone who was confirmed or suspected to have Coronavirus/COVID-19? No / Unsure 02/15/2022 10:32 AM SUPERVISOR FLESHING documented as of this encounter Miscellaneous Notes [...] Provider Dept 02/13/22 Telemedicine Nicolas Greer MD [facility] 01/11/22 Telemedicine Nicolas Gerer MD [facility] 01/09/22 Telemedicine Keny Saldaña APRN, MARY [facility] 12/19/21 Office Visit Nicolas Greer MD [facility] 09/08/21 Office Visit Keny Saldaña APRN, SOFTWARE TOOLS ENGINEER [facility] 08/03/21 Telemedicine Nicolas Greer MD [facility] 07/21/21 Telemedicine Nicolas [facility] MD [facility] 04/28/21 Telemedicine Nicolas Greer MD [facility] Showing recent visits within past 365 days and meeting all other requirements Future Appointments Date Type Provider Dept 03/22/22 Appointment Nicolas [facility] MD [facility] Showing future appointments within next 90 days and meeting all other requirements RVISOR FLESHING documented in this encounter Plan of Treatment Upcoming Encounters Date Type Department Care Team (Late st Contact Info) Description 02/17/2025 1:00 PM SUPERVISOR FLESHING Office Visit [facility] Medical Group - Family Medicine - [place] #2 [place] [address] Nicolas Greer MD #[address] [address] 03/23/2025 2:00 PM SUPERVISOR FLESHING Office Visit [facility] Medical [facility] - Pulmonology & Sleep Medicine - [place] #2 [place] [address] Raghu Green MD #2 [place] [address] documented as of this encounter Visit Diagnoses Diagnosis Chronic pain of both knees documented in this encounter Additional Health Concerns Assessment Noted Time PHQ-9 Depression Total Score: 0 02/12/19 20 10:45 AM SUPERVISOR FLESHING documented as of this encounter Care Teams Genomics Scientist Relationship Specialty Start Date End Date Nicolas Greer MD #[address] [address] PCP - General Family Medicine 09/08/21 Ariel Christiansen MD Consulting Physician Cardiovascular Disease - Cardiology 07/19/16 [place] [address] [facility] [address] [place] [address] Backhoe Operator Pulmonary Disease 06/18/20 Keny Saldaña, CUSTOMER RESPONSE REPRESENTATIVE, SOFTWARE TOOLS ENGINEER #[address] [address] Nurse Practitioner Advanced Practice Nurse 09/08/21 Cristian Dewitt MD #[address] [address] Consulting Physician Cardiovascular Disease - Cardiology 10/06/21 02/07/24 Ale Spain, RN [place] Office Equipment Technician 03/15/22 02/12/23 Ale Spain, RN [place] Nurse Office Equipment Technician 03/15/22 02/13/23 Yamel Kurtz III, MD #2 [place] [address] Consulting Physician Urology 09/11/22 Raghu Green MD #2 [place] [address] Consulting Physician Pulmonary Disease 01/04/22 Warren Osborn MD #[address] [address] Consulting Physician Colon and Rectal Surgery 05/21/23 Ale Spain, RN [place] Nurse Office Equipment Technician 09/05/23 09/04/24 Chetan Do MD #[address] [address] Consulting Physician Endocrinology 01/23/24 documented as of this encounter
--- OUTSIDE RECORDS SUMMARY | 2024-09-29 13:36 | XMS_ITS | Encounter Summary ---
Author Organization [facility] Address [address] [place] [address] Phone Care Team Providers Care Paint Grinder Stone Mill Name Role Phone Ariel Christiansen MD Unavailable [phone] Parmjit Vogel MD Unavailable [phone] Nicolas Greer MD Primary Care Provider [phone] Keny Saldaña APRN, REINFORCER Unavailable Cristian Dewitt MD Unavailable Ale Black RN Unavailable Unavailable Ale Spain RN Unavailable Unavailable Jerardo MCCANN MD, Courtney Unavailable [phone] Raghu Green MD Unavailable Warren Osborn MD Unavailable Ale Spain RN Unavailable Unavailable Chetan Do MD Unavailable Reason for Visit * Reason Comments Medication Refill Encounter Details Date Type Department Care Team (Late st Contact Info) Description 10/25/2022 Refill [facility] - [facility] #2 [place] [address] Nicolas Greer MD #[address] [address] Medication Refill Social History Tobacco Use Types [...] Job Start Date Job End Date Retired [employer] Not on file Not on file Not [...] [place] 02/13/22 Telemedicine Nicolas Greer MD [facility] 01/11/22 [facility]medicine [facility] [place] 01/09/22 Telemedicine Keny Saldaña APRN, CNP [facility] 12/19/21 Office Visit Nicolas Greer MD [facility] Showing recent visits within past 365 days and meeting all other requirements Future Appointments Date Type Provider Dept 12/21/22 Appointment Nicolas Greer MD [facility] Showing future appointments within next 90 days and meeting all other requirements documented in this encounter Plan of Treatment Upcoming Encounters Date Type Department Care Team (Late st Contact Info) Description 02/17/2025 1:00 PM SCIENCE SPECIALIST Office Visit [facility] Medical [facility] - Family Medicine - [place] #2 [place] [address] Nicolas Greer MD #[address] [address] 03/23/2025 2:00 PM SCIENCE SPECIALIST Office Visit [facility] - Pulmonology & Sleep Medicine - [place] #2 [place] [address] Raghu Green MD #2 [place] [address] documented as of this encounter Visit Diagnoses Not on filedocumented in this encounter Additional Health Concerns Assessment Noted Time PHQ-9 Depression Total Score: 0 09/22/19 1:48 PM CDT documented as of this encounter Care Teams Paint Grinder Stone Mill Relationship Specialty Start Date End Date Nicolas Greer MD #[address] [address] PCP - General Family Medicine 09/08/21 Ariel Christiansen MD Consulting Physician Cardiovascular Disease - Cardiology 07/19/16 [place] [address] [facility] [address] [place] [address] Visitor Services Representative Pulmonary Disease 06/18/20 Keny Saldaña, WET PRESS TENDER, REINFORCER #[address] [address] Nurse Practitioner Advanced Practice Nurse 09/08/21 Cristian Dewitt MD #[address] [address] Consulting Physician Cardiovascular Disease - Cardiology 10/06/21 02/07/24 Ale Spain, RN [place] Destaticizer Feeder 03/15/22 02/12/23 Ale Spain, RN [place] Nurse Destaticizer Feeder 03/15/22 02/13/23 Yamel Kurtz III, MD #2 [place] [address] Consulting Physician Urology 09/11/22 Raghu Green MD #2 [place] [address] Consulting Physician Pulmonary Disease 01/04/22 Warren Osborn MD #[address] [address] Consulting Physician Colon and Rectal Surgery 05/21/23 Ale Spain, RN [place] Nurse Destaticizer Feeder 09/05/23 09/04/24 Chetan Do MD #[address] [address] Consulting Physician Endocrinology 01/23/24 documented as of this encounter
--- OUTSIDE RECORDS SUMMARY | 2024-09-29 13:36 | XMS_ITS | Encounter Summary ---
Author Organization [facility] Address [address] [place] [address] Phone Care Team Providers Care Ledge Man Name Role Phone Ariel Christiansen MD Unavailable [phone] Parmjit Vogel MD Unavailable [phone] Nicolas Greer MD Primary Care Provider [phone] Keny Saldaña APRN, STABLE HELPER Unavailable Cristian Dewitt MD Unavailable Ale Black RN Unavailable Unavailable Ale Spain RN Unavailable Unavailable Jerardo MCCANN MD, Courtney Unavailable [phone] Raghu Green MD Unavailable Warren Osborn MD Unavailable Ale Spain RN Unavailable Unavailable Chetan Do MD Unavailable Reason for Visit * Reason Comments Medication Refill Encounter Details Date Type Department Care Team (Late st Contact Info) Description 06/05/2022 Refill [facility] - Family Medicine [facility] #2 [place] [address] Nicolas Greer MD #[address] [address] Medication Refill Social History Tobacco Use Types [...] Job Start Date Job End Date Retired [employer] Not on file Not on file [...] Dept 03/22/22 Office Visit Nicolas Greer MD [facility] 03/07/22 Telemedicine Nicolas Greer MD [facility] 02/13/22 Telemedicine Nicolas Greer MD [facility] 01/11/22 Telemedicine Nicolas Greer MD [facility] 01/09/22 Telemedicine Keny Saldaña APRN, MARY [facility] [place] [place] [facility] 12/19/21 Office Visit Nicolas Greer MD [facility] 09/08/21 Office Visit Keny Saldaña APRN, STABLE HELPER [facility] [place] [place] [facility] 08/03/21 Telemedicine Nicolas Gre[facility] MD [facility] 01/09/22 Telemedicine Keny Saldaña APRN, STABLE HELPER [facility] [place] [place] [facility] 12/19/21 Office Visit Nicolas Greer MD [facility] 09/08/21 Office Visit Keny Saldaña APRN, STABLE HELPER [facility] 08/03/21 Telemedicine Nicolas Greer MD [facility] 07/21/21 Telemedicine Nicolas Greer MD [facility] Showing recent visits within past 365 days and meeting all other requirements Future Appointments Date Type Provider Dept 06/21/22 Appointment Nicolas Greer MD [facility] Showing future appointments within next 90 days and meeting all other requirements Passed - GFR on record in past 12 months GFR, EST. NONAFRICAN Date Value Ref Range Status 04/06/2022 48 (L) >=60 Final documented in this encounter Plan of Treatment Upcoming Encounters Date Type Department Care Team (Late st Contact Info) Description 02/17/2025 1:00 PM DRAFTER GEOLOGICAL Office Visit [facility] Family Medicine - [place] #2 [place] [address] Nicolas Greer MD #[address] [address] 03/23/2025 2:00 PM DRAFTER GEOLOGICAL Office Visit [facility] - Pulmonology & Sleep Medicine [facility] #2 [place] [address] Raghu Green MD #2 [place] [address] documented as of this encounter Visit Diagnoses Diagnosis Edema, unspecified type documented in this encounter Additional Health Concerns Assessment Noted Time PHQ-9 Depression Total Score: 0 02/12/19 20 10:45 AM DRAFTER GEOLOGICAL documented as of this encounter Care Teams Ledge Man Relationship Specialty Start Date End Date Nicolas Greer MD #[address] [address] PCP - General Family Medicine 09/08/21 Ariel Christiansen MD Consulting Physician Cardiovascular Disease - Cardiology 07/19/16 [place] [address] [facility] [address] [place] [address] [employer] Winder Pulmonary Disease 06/18/20 Keny Saldaña APRN, STABLE HELPER #[address] [address] Nurse Practitioner Advanced Practice Nurse 09/08/21 Cristian Dewitt MD #[address] [address] Consulting Physician Cardiovascular Disease - Cardiology 10/06/21 02/07/24 Ale Spain, RN [place] Treasury Specialist 03/15/22 02/12/23 Ale Spain, RN [place] Nurse Treasury Specialist 03/15/22 02/13/23 Yamel Kurtz III, MD #2 [place] [address] Consulting Physician Urology 09/11/22 Raghu Green MD #2 [place] [address] Consulting Physician Pulmonary Disease 01/04/22 Warren Osborn MD #[address] [address] Consulting Physician Colon and Rectal Surgery 05/21/23 Ale Spain, RN [place] Nurse Treasury Specialist 09/05/23 09/04/24 Chetan Do MD #[address] [address] Consulting Physician Endocrinology 01/23/24 documented as of this encounter
--- OUTSIDE RECORDS SUMMARY | 2024-09-29 13:36 | XMS_ITS | Encounter Summary ---
Author Organization [facility] Address [address] [place] [address] [place] [address] Phone Care Team Providers Care Furniture Delivery Driver Name Role Phone Ariel Christiansen MD Unavailable [phone] Parmjit Vogel MD Unavailable [phone] Nicolas Greer MD Primary Care Provider [phone] Keny Saldaña APRN, HOGSHEAD BUILDER Unavailable Cristian Dewitt MD Unavailable Ale Black RN Unavailable Unavailable Ale Spain RN Unavailable Unavailable Jerardo MCCANN MD, Courtney Unavailable [phone] Raghu Green MD Unavailable Warren Osborn MD Unavailable Ale Spain RN Unavailable Unavailable Chetan Do MD Unavailable Reason for Visit * Reason Comments Medication Refill Encounter Details Date Type Department Care Team (Late st Contact Info) Description 03/27/2022 Refill [facility] - Family Medicine [facility] #2 [place] [address] Nicolas Greer MD #[address] [address] Medication Refill Social History Tobacco Use Types [...] Job Start Date Job End Date Retired [employer] Not on file Not on file Not on file COVID-19 Exposure Response Date Recorded In the last 10 days, have yo u been in contact with someone who was confirmed or suspected to have Coronavirus/COVID-19? No / Unsure 03/22/2022 2:20 PM SCHOOL LABORATORY TECHNICIAN documented as of this encounter Miscellaneous Notes * Telephone Encounter - Karoline Martinez RN - 03/27/2022 1:19 PM SCHOOL LABORATORY TECHNICIAN Per nursing clinical judgement, provider to review and approve the medication(s) order(s) if appropriate. Requested Prescriptions Pending Prescriptions Disp Refills albuterol 108 (90 Base) MCG/ACT Aerosol Solution [Pharmacy Med Name: ALBUTEROL HFA 90 MCG INHALER (MD] 8.5 g Sig: INHALE TWO PUFFS BY [...] [facility] 01/09/22 Telemedicine Keny Saldaña APRN, HOGSHEAD BUILDER [facility] 12/19/21 Office Visit Nicolas Greer MD [facility] 09/08/21 Office Visit Keny Saldaña APRN, HOGSHEAD BUILDER [facility] 08/03/21 Telemedicine Nicolas Greer MD [facility] 07/21/21 Telemedicine Nicolas Greer MD [facility] 04/28/21 Telemedicine Nicolas Greer MD [facility] Showing recent visits within past 365 days and meeting all other requirements Future Appointments Date Type Provider Dept 06/21/22 Appointment Nicolas Greer MD [facility] Showing future appointments within next 90 days and meeting all other requirements [facility] 160-9-4.8 MCG/ACT Aerosol [Pharmacy Med Name: BREZTRI [...] [facility] 01/09/22 Telemedicine Keny Saldaña APRN, HOGSHEAD BUILDER [facility] 12/19/21 Office Visit Nicolas Greer MD [facility] 09/08/21 Office Visit Keny Saldaña APRN, HOGSHEAD BUILDER [facility] 08/03/21 Telemedicine Nicolas Greer MD [facility] 07/21/21 Telemedicine Nicolas Greer MD [facility] 04/28/21 Telemedicine Nicolas Greer MD [facility] Showing recent visits within past 365 days and meeting all other requirements Future Appointments Date Type Provider Dept 06/21/22 Appointment Nicolas Greer MD [facility] Showing future appointments within next 90 days and meeting all other requirements Passed - Active short-acting beta agonist prescription OL LABORATORY TECHNICIAN documented in this encounter Plan of Treatment Upcoming Encounters Date Type Department Care Team (Late st Contact Info) Description 02/17/2025 1:00 PM SCHOOL LABORATORY TECHNICIAN Office Visit [facility] Family Medicine [facility] #2 [place] [address] Nicolas Greer MD #[address] [place] [address] 03/23/2025 2:00 PM SCHOOL LABORATORY TECHNICIAN Office Visit [facility] - Pulmonology & Sleep Medicine [facility] #2 [place] [address] Raghu Green MD #2 [facility] [place] [address] documented as of this encounter Visit Diagnoses Not on filedocumented in this encounter Additional Health Concerns Assessment Noted Time PHQ-9 Depression Total Score: 0 02/12/19 20 10:45 AM SCHOOL LABORATORY TECHNICIAN documented as of this encounter Care Teams Furniture Delivery Driver Relationship Specialty Start Date End Date Nicolas Greer MD #[address] [address] PCP - General Family Medicine 09/08/21 Ariel Christiansen MD Consulting Physician Cardiovascular Disease - Cardiology 07/19/16 [place] [address] [place] [address] Shower Doors And Panels Fabricator Pulmonary Disease 06/18/20 Keny Saldaña APRN, HOGSHEAD BUILDER #[address] [address] Nurse Practitioner Advanced Practice Nurse 09/08/21 Cristian Dewitt MD #[address] [address] Consulting Physician Cardiovascular Disease - Cardiology 10/06/21 02/07/24 Ale Spain, RN [place] Adjunct Lecturer 03/15/22 02/12/23 Ale Spain, RN [place] Nurse Adjunct Lecturer 03/15/22 02/13/23 Yamel Kurtz III, MD #2 [place] [address] Consulting Physician Urology 09/11/22 Raghu Green MD #2 [place] [address] Consulting Physician Pulmonary Disease 01/04/22 Warren Osborn MD #[address] [address] Consulting Physician Colon and Rectal Surgery 05/21/23 Ale Spain, RN [place] Nurse Adjunct Lecturer 09/05/23 09/04/24 Chetan Do MD #[address] [phone] Consulting Physician Endocrinology 01/23/24 documented as of this encounter
--- OUTSIDE RECORDS SUMMARY | 2024-09-29 13:36 | XMS_ITS | Encounter Summary ---
Author Organization [facility] Address [address] [place] [address] Phone Care Team Providers Care Clinical Informaticist Name Role Phone Ariel Christiansen MD Unavailable [phone] Parmjit Vogel MD Unavailable [phone] Nicolas Greer MD Primary Care Provider [phone] Keny Saldaña APRN, EMPLOYEE BENEFITS MANAGER Unavailable Cristian Dewitt MD Unavailable Ale Black RN Unavailable Unavailable Ale Spain RN Unavailable Unavailable Jerardo MCCANN MD, Courtney Unavailable [phone] Raghu Green MD Unavailable Warren Osborn MD Unavailable Ale Spain RN Unavailable Unavailable Chetan Do MD Unavailable Reason for Visit * Reason Comments Medication Refill Encounter Details Date Type Department Care Team (Late st Contact Info) Description 08/01/2022 Refill [facility] - Family Medicine [facility] #2 [place] [address] Nicolas Greer MD #[address] [address] Medication Refill Social History Tobacco Use Types [...] Job Start Date Job End Date Retired [employer] Not on file Not on file Not [...] st Contact Info) Description 02/17/2025 1:00 PM DYE HOUSE WHEEL OPERATOR Office Visit [facility] - Family Medicine - [place] #2 [place] [address] Nicolas Greer MD #[address] [address] 03/23/2025 2:00 PM DYE HOUSE WHEEL OPERATOR Office Visit [facility] - Pulmonology & Sleep Medicine [facility] #2 [place] [address] Raghu Green MD #2 [place] [address] documented as of this encounter Visit Diagnoses Not on filedocumented in this encounter Additional Health Concerns Assessment Noted Time PHQ-9 Depression Total Score: 0 02/12/19 20 10:45 AM DYE HOUSE WHEEL OPERATOR documented as of this encounter Care Teams Clinical Informaticist Relationship Specialty Start Date End Date Nicolas Greer MD #[address] [address] PCP - General Family Medicine 09/08/21 Ariel Christiansen MD Consulting Physician Cardiovascular Disease - Cardiology 07/19/16 [place] [address] [address] Java Web User Interface Developer Pulmonary Disease 06/18/20 Keny Saldaña APRN, EMPLOYEE BENEFITS MANAGER #[address] [address] Nurse Practitioner Advanced Practice Nurse 09/08/21 Cristian Dewitt MD #[address] [address] Consulting Physician Cardiovascular Disease - Cardiology 10/06/21 02/07/24 Ale Spain, RN [place] Tile Erector 03/15/22 02/12/23 Ale Spain, RN [place] Nurse Tile Erector 03/15/22 02/13/23 Yamel Kurtz III, MD #2 [place] [address] Consulting Physician Urology 09/11/22 Raghu Green MD #2 [place] [address] Consulting Physician Pulmonary Disease 01/04/22 Warren Osborn MD #[address] [address] Consulting Physician Colon and Rectal Surgery 05/21/23 Ale Spain, WAL[place] Nurse Tile Erector 09/05/23 09/04/24 Chetan Do MD #[address] [phone] Consulting Physician Endocrinology 01/23/24 documented as of this encounter
--- OUTSIDE RECORDS SUMMARY | 2024-09-29 13:36 | XMS_ITS | Encounter Summary ---
Author Organization [facility] Address [address] [place] [address] Phone Care Team Providers Care Expressive Art Therapist Name Role Phone Nicolas Greer MD Primary Care Provider [phone] Ariel Christiansen MD Unavailable [phone] Parmjit Vogel MD Unavailable [phone] Nicolas Greer MD Primary Care Provider [phone] Keny Saldaña APRN, PRODUCT INFO SPECIALIST Unavailable Cristian Dewitt MD Unavailable Ale Black RN Unavailable Unavailable Ale Spain RN Unavailable Unavailable Jerardo MCCANN MD, Courtney Unavailable [phone] Raghu Green MD Unavailable Warren Osborn MD Unavailable Ale Spain RN Unavailable Unavailable Chetan Do MD Unavailable Reason for Visit * Reason Comments Medication Refill Encounter Details Date Type Department Care Team (Late st Contact Info) Description 01/02/2020 Refill [facility] - Family [facility] #2 [place] [address] Nicolas Greer MD #2 [place] [id number] Medication Refill Social History Tobacco Use Types [...] Job Start Date Job End Date Retired [employer] Not on file Not on file Not on file COVID-19 Exposure Response Date Recorded In the last month, have you been in contact with someone who was confirmed or suspected to have Coronavirus / COVID-19? No / Unsure 12/11/2019 11:15 AM NUTRITIONAL SERVICES DIRECTOR documented as of this encounter Miscellaneous Notes * Telephone Encounter - Ivanna England RN - 01/02/2020 2:52 PM CST Sent to PCP ITIONAL SERVICES DIRECTOR * Telephone Encounter - Ivanna England RN [...] 2 months ago Hyperlipidemia, unspecified hyperlipidemia type [facility] - Nicolas Waters MD 5 months ago Pulmonary emphysema, unspecified emphysema type (HCC) [facility] - Keny Crowder APN, MARY 7 months ago Ptosis of both eyelids [facility] - Keny Crowder APN, MARY 10 months ago Hypothyroidism, unspecified type [facility] Nicolas Waters MD 1 year ago Non-insulin dependent type 2 diabetes mellitus (HCC) [facility] - Nicolas Waters MD Upcoming Appointments REPORTING ANALYST - Recent and Past Visits Recent Visits Date Type Provider Dept 10/14/19 Office Visit Nicolas Greer MD [facility] 07/14/19 Office Visit Keny Saldaña APN, CNP [facility] 05/22/19 Telemedicine Keny Saldaña APN, CNP [facility] 02/12/19 Office Visit Nicolas Greer MD [facility] 11/05/18 Office Visit Nicolas Greer MD [facility] Showing recent visits within past 460 [...] 2 months ago Hyperlipidemia, unspecified hyperlipidemia type [facility] - Nicolas Waters MD 5 months ago Pulmonary emphysema, unspecified emphysema type (HCC) [facility] - Keny Crowder APN, MARY 7 months ago Ptosis of both eyelids [facility] Keny Crowder APN, PRODUCT INFO SPECIALIST 10 months ago Hypothyroidism, unspecified type [facility] - Nicolas Waters MD 1 year ago Non-insulin dependent type 2 diabetes mellitus (HCC) [facility] Nicolas Waters MD Upcoming Appointments REPORTING ANALYST - Recent and Past Visits Recent Visits Date Type Provider Dept 10/14/19 Office Visit Nicolas Greer MD [facility] 07/14/19 Office Visit Keny Saldaña APN, MARY [facility] [place] [facility] 05/22/19 Telemedicine Keny Saldaña APN, PRODUCT INFO SPECIALIST [facility] 02/12/19 Office Visit Nicolas Greer MD [facility] 11/05/18 Office Visit Nicolas Greer MD [facility] Showing recent visits within past 460 days with a meds authorizing provider and meeting all other requirements Future Appointments No visits were found meeting these conditions. Showing future appointments within next 90 days with a meds authorizing provider and meeting all other requirements ITIONAL SERVICES DIRECTOR documented in this encounter Plan of Treatment Upcoming Encounters Date Type Department Care Team (Late st Contact Info) Description 02/17/2025 1:00 PM NUTRITIONAL SERVICES DIRECTOR Office Visit [facility] [place] #2 [place] [address] Nicolas Greer MD #[address] [address] 03/23/2025 2:00 PM NUTRITIONAL SERVICES DIRECTOR Office Visit [facility] - Pulmonology & Sleep Medicine [facility] #2 [place] [address] Raghu Green MD #2 [place] [address] documented as of this encounter Visit Diagnoses Diagnosis Pulmonary emphysema, unspecified emphysema type (HCC) documented in this encounter Additional Health Concerns Infection Onset Date Last Indicated Resolved Time COVID - 19 03/11/2020 03/11/2020 03/31/2020 12:1 8 AM NUTRITIONAL SERVICES DIRECTOR COVID - 19 09/02/2021 09/02/2021 09/03/2021 2:05 PM CDT COVID - 19 12/24/2021 12/24/2021 12/26/2021 8:07 AM NUTRITIONAL SERVICES DIRECTOR Respiratory Rule Out - RPA 12/24/2021 12/24/2021 1 02/24/2021 4:41 PM NUTRITIONAL SERVICES DIRECTOR Influenza 12/24/2021 12/24/2021 12/31/2021 12:1 6 AM NUTRITIONAL SERVICES DIRECTOR Assessment Noted Time PHQ-9 Depression Total Score: 0 02/12/19 10:45 AM NUTRITIONAL SERVICES DIRECTOR documented as of this encounter Care Teams Expressive Art Therapist Relationship Specialty Start Date End Date Nicolas Greer MD #[address] [address] PCP - General Family Medicine 12/22/14 09/07/21 Nicolas Greer MD #[address] [address] PCP - General Family Medicine 09/08/21 Ariel Christiansen MD #[address] [address] Consulting Physician Cardiovascular Disease - Cardiology 07/19/16 [place] [address] [address] Reporting Analyst Pulmonary Disease 06/18/20 Keny Saldaña, SIZE ROLLER OPERATOR, PRODUCT INFO SPECIALIST #[address] [address] Nurse Practitioner Advanced Practice Nurse 09/08/21 Cristian Dewitt MD #2 [facility] [address] [place] [address] Consulting Physician Cardiovascular Disease - Cardiology 10/06/21 02/07/24 Ale Spain, RN [place] Youth Services Specialist 03/15/22 02/12/23 Ale Spain, RN [place] Nurse Youth Services Specialist 03/15/22 02/13/23 Yamel Kurtz III, MD #2 [place] [address] Consulting Physician Urology 09/11/22 Raghu Green MD #2 [place] [address] Consulting Physician Pulmonary Disease 01/04/22 Warren Osborn MD #[address] [address] Consulting Physician Colon and Rectal Surgery 05/21/23 Ale Spain, RN [place] Nurse Youth Services Specialist 09/05/23 09/04/24 Chetan Do MD #[address] [phone] Consulting Physician Endocrinology 01/23/24 documented as of this encounter
--- OUTSIDE RECORDS SUMMARY | 2024-09-29 13:36 | XMS_ITS | Encounter Summary ---
Author Organization [facility] Address [address] [place] [place] [address] Phone Care Team Providers Care Home Organizer Name Role Phone Ariel Christiansen MD Unavailable [phone] Parmjit Vogel MD Unavailable [phone] Nicolas Greer MD Primary Care Provider [phone] Keny Saldaña APRN, SENIOR HR GENERALIST Unavailable Cristian Dewitt MD Unavailable Ale Black RN Unavailable Unavailable Ale Spain RN Unavailable Unavailable Jerardo MCCANN MD, Courtney Unavailable [phone] Raghu Green MD Unavailable Warren Osborn MD Unavailable Ale Spain RN Unavailable Unavailable Chetan Do MD Unavailable Reason for Visit * Reason Comments Medication Refill Encounter Details Date Type Department Care Team (Late st Contact Info) Description 06/06/2022 Refill [facility] - Family Medicine [facility] #2 [place] [address] Nicolas Greer MD #[address] [address] Medication Refill Social History Tobacco Use Types [...] Industry Job Start Date Job End Date Interview [employer] Not on file Not on file Not [...] [place] 09/08/21 Office Visit Keny Saldaña APRN, SENIOR HR GENERALIST [facility] 08/03/21 Telemedicine Nicolas Greer MD [facility] 07/21/21 Telemedicine Nicolas Greer MD [facility] Showing recent visits within past 365 days and meeting all other requirements Future Appointments Date Type Provider Dept 06/21/22 Appointment Nicolas Greer MD [facility] Showing future appointments within next 90 days and meeting all other requirements documented in this encounter Plan of Treatment Upcoming Encounters Date Type Department Care Team (Late st Contact Info) Description 02/17/2025 1:00 PM EXCHANGE CONSULTANT Office Visit [facility] - Family Medicine - [place] #2 [place] [address] Nicolas Greer MD #[address] [address] 03/23/2025 2:00 PM EXCHANGE CONSULTANT Office Visit [facility] - Pulmonology & Sleep Medicine - [place] #2 [place] [address] Raghu Green MD #2 [place] [address] documented as of this encounter Visit Diagnoses Diagnosis Chronic pain of both knees documented in this encounter Additional Health Concerns Assessment Noted Time PHQ-9 Depression Total Score: 0 02/12/19 20 10:45 AM EXCHANGE CONSULTANT documented as of this encounter Care Teams Home Organizer Relationship Specialty Start Date End Date Nicolas Greer MD #[address] [address] PCP - General Family Medicine 09/08/21 Ariel Christiansen MD Consulting Physician Cardiovascular Disease - Cardiology 07/19/16 [place] [address] [address] Psychology Clinician Pulmonary Disease 06/18/20 Keny Saldaña APRN, SENIOR HR GENERALIST #[address] [address] Nurse Practitioner Advanced Practice Nurse 09/08/21 Cristian Dewitt MD #[address] [address] Consulting Physician Cardiovascular Disease - Cardiology 10/06/21 02/07/24 Ale Spain, RN [place] Home Appliance Washing Machine Mechanic 03/15/22 02/12/23 Ale Spain, RN [place] Nurse Home Appliance Washing Machine Mechanic 03/15/22 02/13/23 Yamel Kurtz III, MD #2 [place] [address] Consulting Physician Urology 09/11/22 Raghu Green MD #2 [place] [address] Consulting Physician Pulmonary Disease 01/04/22 Warren Osborn MD #[address] [address] Consulting Physician Colon and Rectal Surgery 05/21/23 Ale Spain, RN [place] Nurse Home Appliance Washing Machine Mechanic 09/05/23 09/04/24 Chetan Do MD #[address] [phone] Consulting Physician Endocrinology 01/23/24 documented as of this encounter
--- OUTSIDE RECORDS SUMMARY | 2024-09-29 13:36 | XMS_ITS | Encounter Summary ---
Author Organization [facility] Address [address] [place] [address] Phone Care Team Providers Care Household Appliances Service Technician Name Role Phone Ariel Christiansen MD Unavailable [phone] Parmjit Vogel MD Unavailable [phone] Nicolas Greer MD Primary Care Provider [phone] Keny Saldaña APRN, DRYWALL PROFESSIONAL Unavailable Cristian Dewitt MD Unavailable Ale Black RN Unavailable Unavailable Ale Spain RN Unavailable Unavailable Jerardo MCCANN MD, Courtney Unavailable [phone] Raghu Green MD Unavailable Warren Osborn MD Unavailable Ale Spain RN Unavailable Unavailable Chetan Do MD Unavailable Reason for Visit * Reason Comments Medication Refill Encounter Details Date Type Department Care Team (Late st Contact Info) Description 01/31/2023 Refill [facility] - [facility] #2 [place] [address] Nicolas Greer MD #[address] [address] Medication Refill Social History Tobacco Use Types [...] Job Start Date Job End Date Retired [employer] Not on file Not on file Not [...] [facility] 03/07/22 Telemedicine Nicolas Greer MD [facility] 02/13/22 Telemedicine Nicolas Greer MD [facility] Showing recent visits within past 365 days and meeting all other requirements Future Appointments Date Type Provider Dept 04/04/23 Appointment Nicolas Greer MD [facility] Showing future appointments within next 90 days and meeting all other requirements T AID TEACHER documented in this encounter Plan of Treatment Upcoming Encounters Date Type Department Care Team (Late st Contact Info) Description 02/17/2025 1:00 PM FIRST AID TEACHER Office Visit [facility] Medical [facility] Medicine - [place] #2 [place] [address] Nicolas Greer MD #[address] [address] 03/23/2025 2:00 PM FIRST AID TEACHER Office Visit [facility] - Pulmonology & Sleep Medicine - [place] #2 [place] [address] Raghu Green MD #2 [place] [address] documented as of this encounter Visit Diagnoses Not on filedocumented in this encounter Additional Health Concerns Assessment Noted Time PHQ-9 Depression Total Score: 0 09/22/19 23 1:48 PM CDT documented as of this encounter Care Teams Household Appliances Service Technician Relationship Specialty Start Date End Date Nicolas Greer MD #[address] [address] PCP - General Family Medicine 09/08/21 Ariel Christiansen MD Consulting Physician Cardiovascular Disease - Cardiology 07/19/16 [place] [address] [facility] [address] [place] [address] Transportation Refrigeration Technician Pulmonary Disease 06/18/20 Keny Saldaña APRN, DRYWALL PROFESSIONAL #[address] [address] Nurse Practitioner Advanced Practice Nurse 09/08/21 Cristian Dewitt MD #[address] [address] Consulting Physician Cardiovascular Disease - Cardiology 10/06/21 02/07/24 Ale Spain, RN [place] Linseed Oil Order Filler 03/15/22 02/12/23 Ale Spain, RN [place] Nurse Linseed Oil Order Filler 03/15/22 02/13/23 Yamel Kurtz III, MD #2 [place] [address] Consulting Physician Urology 09/11/22 Raghu Green MD #2 [place] [address] Consulting Physician Pulmonary Disease 01/04/22 Warren Osborn MD #[address] [address] Consulting Physician Colon and Rectal Surgery 05/21/23 Ale Spain, RN [place] Nurse Linseed Oil Order Filler 09/05/23 09/04/24 Chetan Do MD #[address] [id number] Consulting Physician Endocrinology 01/23/24 documented as of this encounter
--- OUTSIDE RECORDS SUMMARY | 2024-09-29 13:36 | XMS_ITS | Encounter Summary ---
Author Organization [facility] Address [address] [place] [place] [address] Phone Care Team Providers Care Manager Coding Name Role Phone Ariel Christiansen MD Unavailable [phone] Parmjit Vogel MD Unavailable [phone] Nicolas Greer MD Primary Care Provider [phone] Keny Saldaña APRN, CALENDER RUNNER Unavailable Cristian Dewitt MD Unavailable Ale Black RN Unavailable Unavailable Ale Spain RN Unavailable Unavailable Jerardo MCCANN MD, Courtney Unavailable [phone] Raghu Green MD Unavailable Warren Osborn MD Unavailable Ale Spain RN Unavailable Unavailable Chetan Do MD Unavailable Reason for Visit * Reason Comments Medication Refill Encounter Details Date Type Department Care Team (Late st Contact Info) Description 10/20/2022 Refill [facility] - Family Medicine [facility] #2 [place] [address] Nicolas Greer MD #[address] [address] Medication Refill Social History Tobacco Use Types [...] Job Start Date Job End Date Retired [employer] Not on file Not on file Not [...] 01/09/22 Telemedicine Keny Saldaña APRN, MARY [facility] 12/19/21 Office Visit Nicolas Greer MD [...] 01/09/22 Telemedicine Keny Saldaña APRN, MARY [facility] 12/19/21 Office Visit Nicolas Greer [...] 09/21/22 Office Visit Nicolas Greer MD [facility] 07/18/22 Telemedicine Nicolas Greer MD [facility] 06/21/22 Office Visit Nicolas Greer MD [facility] 03/22/22 Office Visit Nicolas Greer MD [facility] 03/07/22 Telemedicine Nicolas Greer MD [facility] 02/13/22 Telemedicine Nicolas Greer MD [facility] 01/11/22 Telemedicine Nicolas Greer MD [facility] 01/09/22 Telemedicine Keny Saldaña APRN, MARY [facility] 12/19/21 Office Visit Nicolas Gre[facility] MD [facility] 03/07/22 Telemedicine Nicolas Greer MD [facility] 02/13/22 Telemedicine Nicolas Greer MD [facility] 01/11/22 Telemedicine Nicolas Greer MD [facility] 01/09/22 Telemedicine Keny Saldaña APRN, MARY [facility] 12/19/21 Office Visit Nicolas Greer [...] st Contact Info) Description 02/17/2025 1:00 PM CAMP GUARD Office Visit [facility] Medical [facility] - Family Medicine - [place] #2 [place] [address] Nicolas Greer MD #[address] [address] 03/23/2025 2:00 PM CAMP GUARD Office Visit [facility] - Pulmonology & Sleep Medicine - [place] #2 [place] [address] Raghu Green MD #2 [place] [address] documented as of this encounter Visit Diagnoses Diagnosis Depression with anxiety Dysthymic disorder documented in this encounter Additional Health Concerns Assessment Noted Time PHQ-9 Depression Total Score: 0 09/22/19 23 1:48 PM CDT documented as of this encounter Care Teams Manager Coding Relationship Specialty Start Date End Date Nicolas Greer MD #[address] [address] PCP - General Family Medicine 09/08/21 Ariel Crhistiansen MD Consulting Physician Cardiovascular Disease - Cardiology 07/19/16 [place] [address] [address] Lockstitcher Pulmonary Disease 06/18/20 Keny Saldaña, PORTRAIT ARTIST, CALENDER RUNNER #2 [facility] [address] [place] [address] Nurse Practitioner Advanced Practice Nurse 09/08/21 Cristian Dewitt MD #[address] [address] Consulting Physician Cardiovascular Disease - Cardiology 10/06/21 02/07/24 Ale Spain, RN [place] Orthotic Fitter 03/15/22 02/12/23 Ale Spain, RN [place] Nurse Orthotic Fitter 03/15/22 02/13/23 Yamel Kurtz III, MD #2 [place] [address] Consulting Physician Urology 09/11/22 Raghu Green MD #2 [place] [address] Consulting Physician Pulmonary Disease 01/04/22 Warren Osborn MD #[address] [address] Consulting Physician Colon and Rectal Surgery 05/21/23 Ale Spain, RN [place] Nurse Orthotic Fitter 09/05/23 09/04/24 Chetan Do MD #[address] [phone] Consulting Physician Endocrinology 01/23/24 documented as of this encounter
--- OUTSIDE RECORDS SUMMARY | 2024-09-29 13:36 | XMS_ITS | Encounter Summary ---
Author Organization [facility] Address [address] [place] [place] [address] Phone Care Team Providers Care Stopper Maker Name Role Phone Ariel Christiansen MD Unavailable [phone] Parmjit Vogel MD Unavailable [phone] Nicolas Greer MD Primary Care Provider [phone] Keny Saldaña APRN, FIRE TECHNICIAN Unavailable Cristian Dewitt MD Unavailable Ale Black RN Unavailable Unavailable Ale Spain RN Unavailable Unavailable Jerardo MCCANN MD, Courtney Unavailable [phone] Raghu Green MD Unavailable Warren Osborn MD Unavailable Ale Spain RN Unavailable Unavailable Chetan Do MD Unavailable Reason for Visit * Reason Comments Medication Refill Encounter Details Date Type Department Care Team (Late st Contact Info) Description 01/24/2023 Refill [facility] - Family Medicine [facility] #2 [place] [address] Nicolas Greer MD #[address] [address] Medication Refill Social History Tobacco Use Types [...] Job Start Date Job End Date Retired [employer] Not on file Not on file Not [...] Med Name: ALBUTEROL HFA 90 MCG INHALER (FL] 18 g 1 Sig: INHALE TWO PUFFS [...] [facility] 02/13/22 Telemedicine Nicolas Greer MD [facility] Showing recent visits within past 365 days and meeting all other requirements Future Appointments Date Type Provider Dept 04/04/23 Appointment Nicolas Greer MD [facility] Showing future appointments within next 90 days and meeting all other requirements H REPAIRER documented in this encounter Plan of Treatment Upcoming Encounters Date Type Department Care Team (Late st Contact Info) Description 02/17/2025 1:00 PM WATCH REPAIRER Office Visit [facility] Family Medicine - [place] #[address] [place] [address] Nicolas Greer MD #[address] [place] [address] 03/23/2025 2:00 PM WATCH REPAIRER Office Visit [facility] - Pulmonology & Sleep Medicine [facility] #2 [facility] [place] [address] Raghu Green MD #2 [place] [address] documented as of this encounter Visit Diagnoses Not on filedocumented in this encounter Additional Health Concerns Assessment Noted Time PHQ-9 Depression Total Score: 0 09/22/19 1:48 PM CDT documented as of this encounter Care Teams Stopper Maker Relationship Specialty Start Date End Date Nicolas Greer MD #[address] [place] [address] PCP - General Family Medicine 09/08/21 Ariel Christiansen MD Consulting Physician Cardiovascular Disease - Cardiology 07/19/16 [place] [address] [facility] [address] [place] [address] Desilverizer Pulmonary Disease 06/18/20 Keny Saldaña APRN, FIRE TECHNICIAN #[address] [address] Nurse Practitioner Advanced Practice Nurse 09/08/21 Cristian Dewitt MD #[address] [address] Consulting Physician Cardiovascular Disease - Cardiology 10/06/21 02/07/24 Ale Spain, RN [place] Blade Bon[facility] 03/15/22 02/12/23 Ale Spain, RN [place] Nurse Blade [facility] 03/15/22 02/13/23 Yamel Kurtz III, MD #2 [place] [address] Consulting Physician Urology 09/11/22 Raghu Green MD #2 [place] [address] Consulting Physician Pulmonary Disease 01/04/22 Warren Osborn MD #[address] [address] Consulting Physician Colon and Rectal Surgery 05/21/23 Ale Spain, RN [place] Nurse Blade Boner 09/05/23 09/04/24 Chetan Do MD #[address] [phone] Consulting Physician Endocrinology 01/23/24 documented as of this encounter
--- OUTSIDE RECORDS SUMMARY | 2024-09-29 13:36 | XMS_ITS | Encounter Summary ---
Author Organization [facility] Address [address] [place] [address] Phone Care Team Providers Care Financial Sales Professional Name Role Phone Nicolas Greer MD Primary Care Provider [phone] Ariel Christiansen MD Unavailable [phone] Parmjit Vogel MD Unavailable [phone] Nicolas Greer MD Primary Care Provider [phone] Keny Saldaña APRN, LACQUER PIN PRESS OPERATOR Unavailable Cristian Dweitt MD Unavailable Ale Black RN Unavailable Unavailable Ale Spain RN Unavailable Unavailable Jerardo MCCANN MD, Courtney Unavailable [phone] Raghu Green MD Unavailable Warren Osborn MD Unavailable Ale Spain RN Unavailable Unavailable Chetan Do MD Unavailable Reason for Visit * Reason Comments Medication Refill Encounter Details Date Type Department Care Team (Late st Contact Info) Description 02/07/2020 Refill [facility] [address] [place], [place] [id number] Nicolas Greer MD #[address] [address] Medication Refill Social History Tobacco Use Types [...] Industry Job Start Date Job End Date [employer] [facility] [employer] Not on file Not on file Not [...] ago Hyperlipidemia, unspecified hyperlipidemia type [facility] - Family [facility] - Nicolas Waters MD 6 months ago Pulmonary emphysema, unspecified emphysema type (HCC) [facility] - Family [facility] - Keny Crowder APN, LACQUER PIN PRESS OPERATOR 8 months ago Ptosis of both eyelids [facility] Family [facility] - Keny Crowder APN, LACQUER PIN PRESS OPERATOR 12 months ago Hypothyroidism, unspecified type [facility] - Nicolas Waters MD 1 year ago Non-insulin dependent type 2 diabetes mellitus (HCC) [facility] Family [facility] - Nicolas Waters MD Upcoming Appointments WIRE MACHINE CUTTER - Recent and Past Visits Recent Visits Date Type Provider Dept 10/14/19 Office Visit Nicolas Greer MD [facility] 07/14/19 Office Visit Keny Saldaña APN, MARY [facility] 05/22/19 Telemedicine Keny Saldaña APN, CNP [facility] 02/12/19 Office Visit Nicolas Greer MD [facility] 11/05/18 Office Visit Nicolas Greer MD [facility] Showing recent visits within past 460 [...] ago Hyperlipidemia, unspecified hyperlipidemia type [facility] - Nicolas Waters MD 6 months ago Pulmonary emphysema, unspecified emphysema type (HCC[facility]y Crowder APN, MARY 8 months ago Ptosis of both eyelids [facility] - Keny Crowder APN, MARY 12 months ago Hypothyroidism, unspecified type [facility] - Nicolas Waters MD 1 year ago Non-insulin dependent type 2 diabetes mellitus (HCC) [facility] - Nicolas Waters MD Upcoming Appointments WIRE MACHINE CUTTER - Recent and Past Visits Recent Visits Date Type Provider Dept 10/14/19 Office Visit Nicolas Greer MD [facility] 07/14/19 Office Visit Keny Saldaña APN, MARY [facility] 05/22/19 Telemedicine Keny Saldaña APN, CNP [facility] 02/12/19 Office Visit MohyudNicolas sheth MD [facility] 11/05/18 Office Visit Nicolas Greer MD [facility] Showing recent visits within past 460 [...] 3 months ago Hyperlipidemia, unspecified hyperlipidemia type [facility] - Nicolas Waters MD 6 months ago Pulmonary emphysema, unspecified emphysema type (HCC) [facility] - Keny Crowder APN, LACQUER PIN PRESS OPERATOR 8 months ago Ptosis of both eyelids [facility] - Keny Crowder APN, LACQUER PIN PRESS OPERATOR 12 months ago Hypothyroidism, unspecified type [facility] - Nicolas Waters MD 1 year ago Non-insulin dependent type 2 diabetes mellitus (HCC) [facility] - Nicolas Waters MD Upcoming Appointments WIRE MACHINE CUTTER - Recent and Past Visits Recent Visits Date Type Provider Dept 10/14/19 Office Visit Nicolas Greer MD [facility] 07/14/19 Office Visit Keny Saldaña APN, MARY [facility] 05/22/19 Telemedicine Keny Saldaña APN, MARY [facility] 02/12/19 Office Visit Nicolas Greer MD [facility] 11/05/18 Office Visit Nicolas Greer MD [facility] [...] 3 months ago Hyperlipidemia, unspecified hyperlipidemia type [facility] - Nicolas Waters MD 6 months ago Pulmonary emphysema, unspecified emphysema type (HCC) [facility] - Keny Crowder APN, MARY 8 months ago Ptosis of both eyelids [facility] Keny Crowder APN, MARY 12 months ago Hypothyroidism, unspecified type [facility] Nicolas Waters MD 1 year ago Non-insulin dependent type 2 diabetes mellitus (HCC) [facility] Nicolas Waters MD Upcoming Appointments WIRE MACHINE CUTTER - Recent and Past Visits Recent Visits Date Type Provider Dept 10/14/19 Office Visit Nicolas Greer MD [facility] 07/14/19 Office Visit Keny Saldaña APN, MARY [facility] 05/22/19 Telemedicine Keny Saldaña APN, MARY [facility] 02/12/19 Office Visit Nicolas Greer MD [facility] 11/05/18 [facility] recent visits within past 460 days [...] 3 months ago Hyperlipidemia, unspecified hyperlipidemia type [facility] - Nicolas Waters MD 6 months ago Pulmonary emphysema, unspecified emphysema type (HCC) [facility] - Keny Crowder APN, LACQUER PIN PRESS OPERATOR 8 months ago Ptosis of both eyelids [facility] Keny Crowder APN, MARY 12 months ago Hypothyroidism, unspecified type [facility] Nicolas Waters MD 1 year ago Non-insulin dependent type 2 diabetes mellitus (HCC) [facility] Nicolas Waters MD Upcoming Appointments WIRE MACHINE CUTTER - Recent and Past Visits Recent Visits Date Type Provider Dept 10/14/19 Office Visit Nicolas Greer MD [facility] 07/14/19 Office Visit Keny Saldaña APN, MARY [facility] [place] 05/22/19 Telemedicine Keny Saldaña APN, MARY [facility] [place] 02/12/19 Office Visit Nicolas Greer MD [facility] 11/05/18 Office Visit Nicolas Greer MD [facility] Showing recent visits within past 460 days with a meds authorizing provider and meeting all other requirements Future Appointments No visits were found meeting these conditions. Showing future appointments within next 90 days with a meds authorizing provider and meeting all other requirements SMOKING MACHINE OPERATOR documented in this encounter Plan of Treatment Upcoming Encounters Date Type Department Care Team (Late st Contact Info) Description 02/17/2025 1:00 PM PIPE SMOKING MACHINE OPERATOR Office Visit [facility] Seraf[facility] [address] [place] [address] Nicolas Greer MD #[address] [address] 03/23/2025 2:00 PM PIPE SMOKING MACHINE OPERATOR Office Visit [facility] - Pulmonology & Sleep Medicine [facility] #2 [place] [address] Raghu Green MD #2 [place] [address] documented as of this encounter Visit Diagnoses Diagnosis Depression with anxiety Dysthymic disorder documented in this encounter Additional Health Concerns Infection Onset Date Last Indicated Resolved Time COVID - 19 03/11/2020 03/11/2020 03/31/2020 12:1 8 AM PIPE SMOKING MACHINE OPERATOR COVID - 19 09/02/2021 09/02/2021 09/03/2021 2:05 PM CDT COVID - 19 12/24/2021 12/24/2021 12/26/2021 8:07 AM PIPE SMOKING MACHINE OPERATOR Respiratory Rule Out - RPA 12/24/2021 12/24/2021 1 02/24/2021 4:41 PM PIPE SMOKING MACHINE OPERATOR Influenza 12/24/2021 12/24/2021 12/31/2021 12:1 6 AM PIPE SMOKING MACHINE OPERATOR Assessment Noted Time PHQ-9 Depression Total Score: 0 02/12/19 10:45 AM PIPE SMOKING MACHINE OPERATOR documented as of this encounter Care Teams Financial Sales Professional Relationship Specialty Start Date End Date Nicolas Greer MD #[address] [address] PCP - General Family Medicine 12/22/14 09/07/21 Nicolas Greer MD #[address] [address] PCP - General Family Medicine 09/08/21 Ariel Christiansen MD #[address] [address] Consulting Physician Cardiovascular Disease - Cardiology 07/19/[address] [place] [address] [facility] [address] [place] [address] Pediatrician Active Practice Pulmonary Disease 06/18/20 Keny Saldaña, MEDICAL DONATION PROFESSIONAL, LACQUER PIN PRESS OPERATOR #[address] [address] Nurse Practitioner Advanced Practice Nurse 09/08/21 Cristian Dewitt MD #[address] [address] Consulting Physician Cardiovascular Disease - Cardiology 10/06/21 02/07/24 Ale Spain, RN [place] Women'S Studies Lecturer 03/15/22 02/12/23 Ale Spain, RN [place] Nurse Women'S Studies Lecturer 03/15/22 02/13/23 Yamel Kurtz III, MD #2 [place] [address] Consulting Physician Urology 09/11/22 Raghu Green MD #2 [place] [address] Consulting Physician Pulmonary Disease 01/04/22 Warren Osborn MD #[address] [address] Consulting Physician Colon and Rectal Surgery 05/21/23 Ale Spain, RN [place] Nurse Women'S Studies Lecturer 09/05/23 09/04/24 Chetan Do MD #[address] [address] Consulting Physician Endocrinology 01/23/24 documented as of this encounter
--- OUTSIDE RECORDS SUMMARY | 2024-09-29 13:36 | XMS_ITS | Encounter Summary ---
Author Organization [facility] Address [address] [place] [address] Phone Care Team Providers Care Senior Information Systems Architect Name Role Phone Ariel Christiansen MD Unavailable [phone] Parmjit Vogel MD Unavailable [phone] Nicolas Greer MD Primary Care Provider [phone] Keny Saldaña APRN, TIPPLE MECHANIC Unavailable Cristian Dewitt MD Unavailable Ale Black RN Unavailable Unavailable Ale Spain RN Unavailable Unavailable Jerardo MCCANN MD, Courtney Unavailable [phone] Raghu Green MD Unavailable Warren Osborn MD Unavailable Ale Spain RN Unavailable Unavailable Chetan Do MD Unavailable Reason for Visit * Reason Comments Medication Refill Encounter Details Date Type Department Care Team (Late st Contact Info) Description 04/21/2022 [facility]ill [facility] Medicine [facility] #2 [place] [address] Nicolas Greer MD #[address] [address] Medication Refill Social History Tobacco Use Types [...] Job Start Date Job End Date Retired [employer] Not on file Not on file Not on file COVID-19 Exposure Response Date Recorded In the last 10 days, have yo u been in contact with someone who was confirmed or suspected to have Coronavirus/COVID-19? No / Unsure 04/06/2022 12:47 PM BANK SALES AND SERVICE MANAGER documented as of this encounter Miscellaneous Notes * Telephone Encounter - Nicolle Funk RN - 05/01/2022 1:42 PM CDT Per note 02/01/22 - information systems architect (Dr Osborn) wants patient to take both [...] [place] 09/08/21 Office Visit Keny Saldaña APRN, TIPPLE MECHANIC [facility] 08/03/21 Telemedicine Nicolas Greer MD [...] [facility] [place] 01/09/22 Telemedicine Keny Saldaña APRN, TIPPLE MECHANIC [facility] [place] 12/19/21 Office Visit Nicolas Greer MD [facility] [place] 09/08/21 Office Visit Keny Saldaña APRN, TIPPLE MECHANIC [facility] 08/03/21 Telemedicine Nicolas Greer MD [...] 03/22/22 Office Visit Nicolas Greer MD [facility] [place] 03/07/22 Telemedicine Nicolas Greer MD [facility] [place] 02/13/22 Telemedicine Nicolas Greer MD [facility] [place] 01/11/22 Telemedicine Nicolas Greer MD [facility] 01/09/22 Telemedicine Keny Saldaña APRN, TIPPLE MECHANIC [facility] [place] 12/19/21 Office Visit Nicolas Greer MD [facility] 09/08/21 Office Visit Keny Saldaña APRN, TIPPLE MECHANIC [facility] [place] 08/03/21 Telemedicine Nicolas Greer MD [facility] [place] 07/21/21 Telemedicine Nicolas Greer MD [facility] [place] Showing recent visits within past 365 days [...] st Contact Info) Description 02/17/2025 1:00 PM BANK SALES AND SERVICE MANAGER Office Visit [facility] - Family Medicine - [place] #2 [place] [address] Nicolas Greer MD #[address] [address] 03/23/2025 2:00 PM BANK SALES AND SERVICE MANAGER Office Visit [facility] Medical [facility] - Pulmonology & Sleep Medicine [facility] #2 [place] [address] Raghu Green MD #2 [place] [address] documented as of this encounter Visit Diagnoses Diagnosis Edema, unspecified type documented in this encounter Additional Health Concerns Assessment Noted Time PHQ-9 Depression Total Score: 0 02/12/19 20 10:45 AM BANK SALES AND SERVICE MANAGER documented as of this encounter Care Teams Senior Information Systems Architect Relationship Specialty Start Date End Date Nicolas Greer MD #[address] [address] PCP - General Family Medicine 09/08/21 Ariel Christiansen MD Consulting Physician Cardiovascular Disease - Cardiology 07/19/16 [place] [address] [address] Plc Controls Engineer Pulmonary Disease 06/18/20 Keny Saldaña, APPLICATION INFRASTRUCTURE ENGINEER, TIPPLE MECHANIC #[address] [address] Nurse Practitioner Advanced Practice Nurse 09/08/21 Cristian Dewitt MD #[address] [address] Consulting Physician Cardiovascular Disease - Cardiology 10/06/21 02/07/24 Ale Spain, RN [place] Boatbuilder Wood 03/15/22 02/12/23 Ale Spain, RN [place] Nurse Boatbuilder Wood 03/15/22 02/13/23 Yamel Kurtz III, MD #2 [place] [address] Consulting Physician Urology 09/11/22 Raghu Green MD #2 [place] [address] Consulting Physician Pulmonary Disease 01/04/22 Warren Osborn MD #[address] [address] Consulting Physician Colon and Rectal Surgery 05/21/23 Ale Spain RN [place] Nurse Boatbuilder Wood 09/05/23 09/04/24 Chetan Do MD #[address] [address] Consulting Physician Endocrinology 01/23/24 documented as of this encounter
--- OUTSIDE RECORDS SUMMARY | 2024-09-29 13:36 | XMS_ITS | Encounter Summary ---
Author Organization [facility] Address [address] [place] [address] Phone Care Team Providers Care Machine Guide Base Winder Name Role Phone Areil Christiansen MD Unavailable [phone] Parmjit Vogel MD Unavailable [phone] Nicolas Greer MD Primary Care Provider [phone] Keny Saldaña APRN, ASSOCIATE DIRECTOR OF NURSING Unavailable Cristian Dewitt MD Unavailable Ale Black RN Unavailable Unavailable Ale Spain RN Unavailable Unavailable Jerardo MCCANN MD, Courtney Unavailable [phone] Raghu Green MD Unavailable Warren Osborn MD Unavailable Ale Spain RN Unavailable Unavailable Chetan Do MD Unavailable Reason for Visit * Reason Comments Medication Refill Encounter Details Date Type Department Care Team (Late st Contact Info) Description 07/27/2022 Refill [facility] - [facility] #2 [place] [address] Nicolas Gerer MD #[address] [address] Medication Refill Social History Tobacco Use Types [...] Job Start Date Job End Date Retired [employer] Not on file Not on file Not [...] st Contact Info) Description 02/17/2025 1:00 PM CORROSION CONTROL SPECIALIST Office Visit [facility] - Family Medicine - [place] #[address] [place] [address] Nicolas Greer MD [address] [address] 03/23/2025 2:00 PM CORROSION CONTROL SPECIALIST Office Visit [facility] - Pulmonology & Sleep Medicine [facility] #2 [place] [address] Raghu Green MD #2 [place] [address] documented as of this encounter Visit Diagnoses Not on filedocumented in this encounter Additional Health Concerns Assessment Noted Time PHQ-9 Depression Total Score: 0 02/12/19 20 10:45 AM CORROSION CONTROL SPECIALIST documented as of this encounter Care Teams Machine Guide Base Winder Relationship Specialty Start Date End Date Nicolas Greer MD #[address] [address] PCP - General Family Medicine 09/08/21 Ariel Christiansen MD Consulting Physician Cardiovascular Disease - Cardiology 07/19/16 [place] [address] [address] Home Performance Consultant Pulmonary Disease 06/18/20 Keny Saldaña APRN, ASSOCIATE DIRECTOR OF NURSING #[address] [address] Nurse Practitioner Advanced Practice Nurse 09/08/21 Cristian Dewitt MD #[address] [address] Consulting Physician Cardiovascular Disease - Cardiology 10/06/21 02/07/24 Ale Spain, [place] Pulmonary Specialist 03/15/22 02/12/23 Ale Spain, [place] Nurse Pulmonary Specialist 03/15/22 02/13/23 Yamel Kurtz III, MD #2 [place] [address] Consulting Physician Urology 09/11/22 Raghu Green MD #2 [place] [address] Consulting Physician Pulmonary Disease 01/04/22 Warren Osborn MD #[address] [address] Consulting Physician Colon and Rectal Surgery 05/21/23 Ale Spain RN [place] Nurse Pulmonary Specialist 09/05/23 09/04/24 Chetan Do MD #[address] [address] Consulting Physician Endocrinology 01/23/24 documented as of this encounter
--- OUTSIDE RECORDS SUMMARY | 2024-09-29 13:36 | XMS_ITS | Encounter Summary ---
Author Organization [facility] Address [address] [place] [place] [address] Phone Care Team Providers Care Filling Machine Operator Name Role Phone Nicolas Greer MD Primary Care Provider [phone] Ariel Christiansen MD Unavailable [phone] Parmjit Vogel MD Unavailable [phone] Nicolas Greer MD Primary Care Provider [phone] Keny Saldaña APRN, DRAWING INSTRUCTOR Unavailable Cristian Dewitt MD Unavailable Ale Black RN Unavailable Unavailable Ale Spain RN Unavailable Unavailable Jerardo MCCANN MD, Courtney Unavailable [phone] Raghu Green MD Unavailable Warren Osborn MD Unavailable Ale Spain RN Unavailable Unavailable Chetan Do MD Unavailable Encounter Details Date Type Department Care Team (Late st Contact Info) Description 09/06/2021 Telephone [facility] Med Surg [address] [address] Tierney Merritt, RN [place] Social History Tobacco Use Types [...] Job Start Date Job End Date Retired [employer] Not on file Not on file Not [...] to follow up after recent discharge from [facility] Med-Surg Unit. How are you feeling? Patient [...] st Contact Info) Description 02/17/2025 1:00 PM WIND TURBINE SHEET METAL WORKER Office Visit [facility] - Family Medicine - [place] #2 [place] [address] Nicolas Greer MD #[address] [address] 03/23/2025 2:00 PM WIND TURBINE SHEET METAL WORKER Office Visit [facility] - Pulmonology & Sleep Medicine - [place] #2 [place] [address] Raghu Green MD #2 [place] [address] documented as of this encounter Visit Diagnoses Not on filedocumented in this encounter Additional Health Concerns Infection Onset Date Last Indicated Resolved Time COVID - 19 12/24/2021 12/24/2021 12/26/2021 8:07 AM WIND TURBINE SHEET METAL WORKER Respiratory Rule Out - RPA 12/24/2021 12/24/2021 1 02/24/2021 4:41 PM WIND TURBINE SHEET METAL WORKER Influenza 12/24/2021 12/24/2021 12/31/2021 12:1 6 AM WIND TURBINE SHEET METAL WORKER Assessment Noted Time PHQ-9 Depression Total Score: 0 02/12/19 10:45 AM WIND TURBINE SHEET METAL WORKER documented as of this encounter Care Teams Filling Machine Operator Relationship Specialty Start Date End Date Nicolas Greer MD #[address] [address] PCP - General Family Medicine 12/22/14 09/07/21 Nicolas Greer MD #[address] [place] [address] PCP - General Family Medicine 09/08/21 Ariel Christiansen MD #[address] [address] Consulting Physician Cardiovascular Disease - Cardiology 07/19/16 [place] [address] [facility] [address] [place] [address] Throw Out Clerk Pulmonary Disease 06/18/20 Keny Saldaña APRN, DRAWING INSTRUCTOR #[address] [address] Nurse Practitioner Advanced Practice Nurse 09/08/21 Cristian Dewitt MD #[address] [address] Consulting Physician Cardiovascular Disease - Cardiology 10/06/21 02/07/24 Ale Spain, RN [place] Back End Architect 03/15/22 02/12/23 Ale Spain, RN [place] Nurse Back End Architect 03/15/22 02/13/23 Yamel Kurtz III, MD #2 [place] [address] Consulting Physician Urology 09/11/22 Raghu Green MD #2 [place] [address] Consulting Physician Pulmonary Disease 01/04/22 Warren Osborn MD #[address] [address] Consulting Physician Colon and Rectal Surgery 05/21/23 Ale Spain RN [place] Nurse Back End Architect 09/05/23 09/04/24 Chetan Do MD #[address] [address] Consulting Physician Endocrinology 01/23/24 documented as of this encounter
--- OUTSIDE RECORDS SUMMARY | 2024-09-29 13:36 | XMS_ITS | Encounter Summary ---
Author Organization [facility] Address [address] [place] [address] Phone Care Team Providers Care Sock Lining Examiner Name Role Phone Nicolas Greer MD Primary Care Provider [phone] Ariel Christiansen MD Unavailable [phone] Parmjit Vogel MD Unavailable [phone] Nicolas Greer MD Primary Care Provider [phone] Keny Saldaña APRN, SPORTS INTERNSHIP Unavailable Cristian Dewitt MD Unavailable Ale Black RN Unavailable Unavailable Ale Spain RN Unavailable Unavailable Jerardo MCCANN MD, Courtney Unavailable [phone] Raghu Green MD Unavailable Warren Osborn MD Unavailable Ale Spain RN Unavailable Unavailable Chetan Do MD Unavailable Reason for Visit * Reason Comments Medication Refill Encounter Details Date Type Department Care Team (Late st Contact Info) Description 08/02/2021 Refill [facility] - Family [facility] #2 [place] [address] Nicolas Greer MD #[address] [place] [id number] Medication Refill Social History Tobacco Use Types [...] Industry Job Start Date Job End Date [email or web address] Not on file Not on file Not [...] 08/03/21 Telemedicine Nicolas Greer MD [facility] Showing today's visits and meeting all other requirements Future Appointments Date Type Provider Dept 10/27/21 Appointment Nicolas Greer MD [facility] Showing future appointments within next 90 days and meeting all other requirements documented in this encounter Plan of Treatment Upcoming Encounters Date Type Department Care Team (Late st Contact Info) Description 02/17/2025 1:00 PM WAREHOUSE SORTER Office Visit [facility] Medical [facility] - Family Medicine - [place] #2 [place] [address] Nicolas Greer MD #[address] [address] 03/23/2025 2:00 PM WAREHOUSE SORTER Office Visit [facility] - Pulmonology & Sleep Medicine - [place] #2 [place] [address] Raghu Green MD #2 [place] [address] documented as of this encounter Visit Diagnoses Not on filedocumented in this encounter Additional Health Concerns Infection Onset Date Last Indicated Resolved Time COVID - 19 09/02/2021 09/02/2021 09/03/2021 2:05 PM CDT COVID - 19 12/24/2021 12/24/2021 12/26/2021 8:07 AM WAREHOUSE SORTER Respiratory Rule Out - RPA 12/24/2021 12/24/2021 1 02/24/2021 4:41 PM WAREHOUSE SORTER Influenza 12/24/2021 12/24/2021 12/31/2021 12:1 6 AM WAREHOUSE SORTER Assessment Noted Time PHQ-9 Depression Total Score: 0 02/12/19 10:45 AM WAREHOUSE SORTER documented as of this encounter Care Teams Sock Lining Examiner Relationship Specialty Start Date End Date Nicolas Greer MD #[address] [address] PCP - General Family Medicine 12/22/14 09/07/21 Nicolas Greer MD #[address] [address] PCP - General Family Medicine 09/08/21 Ariel Christinasen MD #[address] [address] Consulting Physician Cardiovascular Disease - Cardiology 07/19/16 [place] [address] [address] Restrictive Preparation Operator Pulmonary Disease 06/18/20 Keny Saldaña APRN, SPORTS INTERNSHIP #[address] [address] Nurse Practitioner Advanced Practice Nurse 09/08/21 Cristian Dewitt MD #[address] [address] Consulting Physician Cardiovascular Disease - Cardiology 10/06/21 02/07/24 Ale Spain, RN [place] Solutions Development Analyst 03/15/22 02/12/23 Ale Spain, RN [place] Nurse Solutions Development Analyst 03/15/22 02/13/23 Yamel Kurtz III, MD #2 [place] [address] Consulting Physician Urology 09/11/22 Raghu Green MD #2 [place] [address] Consulting Physician Pulmonary Disease 01/04/22 Warren Osborn MD #[address] [address] Consulting Physician Colon and Rectal Surgery 05/21/23 Ale Spain, [place] Nurse Solutions Development Analyst 09/05/23 09/04/24 Chetan Do MD #[address] [address] Consulting Physician Endocrinology 01/23/24 documented as of this encounter
--- OUTSIDE RECORDS SUMMARY | 2024-09-29 13:36 | XMS_ITS | Encounter Summary ---
Author Organization [facility] Address [address] [place] [address] Phone Care Team Providers Care Animal Geneticist Name Role Phone Ariel Christiansen MD Unavailable [phone] Parmjit Vogel MD Unavailable [phone] Nicolas Greer MD Primary Care Provider [phone] Keny Saldaña APRN, BUSINESS MANAGEMENT CONSULTANT Unavailable Cristian Dewitt MD Unavailable Ale Black RN Unavailable Unavailable Ale Spain RN Unavailable Unavailable Jerardo MCCANN MD, Courtney Unavailable [phone] Raghu Green MD Unavailable Warren Osborn MD Unavailable Ale Spain RN Unavailable Unavailable Chetan Do MD Unavailable Reason for Visit * Reason Comments Medication Refill Encounter Details Date Type Department Care Team (Late st Contact Info) Description 04/25/2022 Refill [facility] - Family Medicine [facility] #2 [place] [address] Nicolas Greer MD #[address] [address] Medication Refill Social History Tobacco Use Types [...] Job Start Date Job End Date Retired [employer] Not on file Not on file Not on file COVID-19 Exposure Response Date Recorded In the last 10 days, have yo u been in contact with someone who was confirmed or suspected to have Coronavirus/COVID-19? No / Unsure 04/06/2022 12:47 PM CORNER TRIMMER OPERATOR documented as of this encounter Miscellaneous Notes * Telephone Encounter - Nicolle Funk RN - 04/25/2022 1:33 PM CDT Refills on file documented in this encounter Plan of Treatment Upcoming Encounters Date Type Department Care Team (Late st Contact Info) Description 02/17/2025 1:00 PM CORNER TRIMMER OPERATOR [facility] - Family Medicine - [place] #2 [place] [address] Nicolas Greer MD #[address] [address] 03/23/2025 2:00 PM CORNER TRIMMER OPERATOR Office Visit [facility] - Pulmonology & Sleep Medicine - [place] #2 [place] [address] Raghu Green MD #2 [place] [address] documented as of this encounter Visit Diagnoses Not on filedocumented in this encounter Additional Health Concerns Assessment Noted Time PHQ-9 Depression Total Score: 0 02/12/19 20 10:45 AM CORNER TRIMMER OPERATOR documented as of this encounter Care Teams Animal Geneticist Relationship Specialty Start Date End Date Nicolas Greer MD #[address] [address] PCP - General Family Medicine 09/08/21 Ariel Christiansen MD Consulting Physician Cardiovascular Disease - Cardiology 07/19/16 [place] [address] [address] Corduroy Brusher Operator Pulmonary Disease 06/18/20 Keny Saldaña APRN, BUSINESS MANAGEMENT CONSULTANT #[address] [address] Nurse Practitioner Advanced Practice Nurse 09/08/21 Cristian Dewitt MD #[address] [address] Consulting Physician Cardiovascular Disease - Cardiology 10/06/21 02/07/24 Ale Spain, RN [place] Community Service Officer 03/15/22 02/12/23 Ale Spain, RN [place] Nurse Community Service Officer 03/15/22 02/13/23 Yamel Kurtz III, MD #2 [place] [address] Consulting Physician Urology 09/11/22 Raghu Green MD #2 [place] [address] Consulting Physician Pulmonary Disease 01/04/22 Warren Osborn MD #[address] [address] Consulting Physician Colon and Rectal Surgery 05/21/23 Ale Spain, RN [place] Nurse Community Service Officer 09/05/23 09/04/24 Chetan Do MD #[address] [address] Consulting Physician Endocrinology 01/23/24 documented as of this encounter
--- OUTSIDE RECORDS SUMMARY | 2024-09-29 13:36 | XMS_ITS | Encounter Summary ---
Author Organization [facility] Address [address] [place] [address] Phone Care Team Providers Care Water/Wastewater Project Manager Name Role Phone Nicolas Greer MD Primary Care Provider [phone] Ariel Christiansen MD Unavailable [phone] Parmjit Vogel MD Unavailable [phone] Nicolas Greer MD Primary Care Provider [phone] Keny Saldaña APRN, EVENT ORGANIZER Unavailable Cristian Dewitt MD Unavailable Ale Black RN Unavailable Unavailable Ale Spain RN Unavailable Unavailable Jerardo MCCANN MD, Courtney Unavailable [phone] Raghu Green MD Unavailable Warren Osborn MD Unavailable Ale Spain RN Unavailable Unavailable Chetan Do MD Unavailable Reason for Visit * Reason Comments Medication Refill Encounter Details Date Type Department Care Team (Late st Contact Info) Description 06/03/2021 Refill [facility] - Family [facility] #2 [place] [address] Nicolas Greer MD #[address] [place] [id number] Medication Refill Social History Tobacco Use Types [...] Industry Job Start Date Job End Date [employer] Not on file Not on file Not [...] Appointments Date Type Provider Dept 07/05/21 Appointment Nicloas Greer MD [facility] [place] Showing future appointments [...] st Contact Info) Description 02/17/2025 1:00 PM ONLINE MERCHANDISING MANAGER Office Visit [facility] Medical [facility] - Family Medicine - [place] #2 [place] [address] Nicolas Greer MD #[address] [address] 03/23/2025 2:00 PM ONLINE MERCHANDISING MANAGER Office Visit [facility] - Pulmonology & Sleep Medicine - [place] #2 [place] [address] Raghu Green MD #2 [place] [address] documented as of this encounter Visit Diagnoses Diagnosis Depression with anxiety Dysthymic disorder Pulmonary emphysema, unspecified emphysema type (HCC) documented in this encounter Additional Health Concerns Infection Onset Date Last Indicated Resolved Time COVID - 19 09/02/2021 09/02/2021 09/03/2021 2:05 PM CDT COVID - 19 12/24/2021 12/24/2021 12/26/2021 8:07 AM ONLINE MERCHANDISING MANAGER Respiratory Rule Out - RPA 12/24/2021 12/24/2021 1 02/24/2021 4:41 PM ONLINE MERCHANDISING MANAGER Influenza 12/24/2021 12/24/2021 12/31/2021 12:1 6 AM ONLINE MERCHANDISING MANAGER Assessment Noted Time PHQ-9 Depression Total Score: 0 02/12/19 10:45 AM ONLINE MERCHANDISING MANAGER documented as of this encounter Care Teams Water/Wastewater Project Manager Relationship Specialty Start Date End Date Nicolas Greer MD #[address] [address] PCP - General Family Medicine 12/22/14 09/07/21 Nicolas Greer MD #[address] [address] PCP - General Family Medicine 09/08/21 Ariel Christiansen MD #[address] [address] Consulting Physician Cardiovascular Disease - Cardiology 07/19/16 [place] [address] [address] Tetryl Dissolver Operator Pulmonary Disease 06/18/20 Keny Saldaña APRN, EVENT ORGANIZER #[address] [address] Nurse Practitioner Advanced Practice Nurse 09/08/21 Cristian Dewitt MD #[address] [address] Consulting Physician Cardiovascular Disease - Cardiology 10/06/21 02/07/24 Ale Spain, RN [place] Chute Boss 03/15/22 02/12/23 Ale Spain RN [place] Nurse Chute Boss 03/15/22 02/13/23 Yamel Kurtz III, MD #2 [place] [address] Consulting Physician Urology 09/11/22 Raghu Green MD #2 [place] [address] Consulting Physician Pulmonary Disease 01/04/22 Warren Osborn MD #[address] [address] Consulting Physician Colon and Rectal Surgery 05/21/23 Ale Spain RN [place] Nurse Chute Boss 09/05/23 09/04/24 Chetan Do MD #[address] [address] Consulting Physician Endocrinology 01/23/24 documented as of this encounter
--- OUTSIDE RECORDS SUMMARY | 2024-09-29 13:36 | XMS_ITS | Encounter Summary ---
Author Organization [facility] Address [address] [place] [address] Phone Care Team Providers Care Wash Oil Pump Operator Helper Name Role Phone Ariel Christiansen MD Unavailable [phone] Parmjit Vogel MD Unavailable [phone] Nicolas Greer MD Primary Care Provider [phone] Keny Saldaña APRN, MARY Unavailable Cristian Dewitt MD Unavailable Kate Kurtz III, MD, Courtney Unavailable [phone] Raghu Green MD Unavailable Warren Osborn MD Unavailable Ale Spain RN Unavailable Unavailable Chetan Do MD Unavailable Reason for Visit * Reason Comments Medication Refill Encounter Details Date Type Department Care Team (Late st Contact Info) Description 02/28/2023 Refill [facility] - [facility] - [place] #2 [place] [address] Nicolas Greer MD #[address] [address] Medication Refill Social History Tobacco Use Types [...] Industry Job Start Date Job End Date [employer] Not on file Not on file Not on file documented as of this encounter Plan of Treatment Upcoming Encounters Date Type Department Care Team (Late st Contact Info) Description 02/17/2025 1:00 PM RIVERBOAT MASTER Office Visit [facility] - [facility] - [place] #2 [place] [address] Nicolas Greer MD #[address] [address] 03/23/2025 2:00 PM RIVERBOAT MASTER Office Visit [facility] - Pulmonology & Sleep Medicine [facility] #2 [place] [address] Raghu Green MD #2 [place] [address] documented as of this encounter Visit Diagnoses Not on filedocumented in this encounter Additional Health Concerns Assessment Noted Time PHQ-9 Depression Total Score: 0 09/22/19 23 1:48 PM CDT documented as of this encounter Care Teams Wash Oil Pump Operator Helper Relationship Specialty Start Date End Date Nicolas Greer MD #[address] [address] PCP - General Family Medicine 09/08/21 Ariel Christiansen MD Consulting Physician Cardiovascular Disease - Cardiology 07/19/16 [place] [address] [address] Heel Varnisher Pulmonary Disease 06/18/20 Keny Saldaña, FOOD PRODUCTION WORKER, MANAGER RESPIRATORY #[address] [address] Nurse Practitioner Advanced Practice Nurse 09/08/21 Cristian Dewitt MD #[address] [address] Consulting Physician Cardiovascular Disease - Cardiology 10/06/21 02/07/24 Yamel Kurtz III, MD #2 [place] [address] Consulting Physician Urology 09/11/22 Raghu Green MD #2 [place] [address] Consulting Physician Pulmonary Disease 01/04/22 Warren Osborn MD #[address] [address] Consulting Physician Colon and Rectal Surgery 05/21/23 Ale Spain, RN [place] Nurse Pit Furnace Operator 09/05/23 09/04/24 Chetan Do MD #[address] [phone] (work) Consulting Physician Endocrinology 01/23/24 documented as of this encounter
--- OUTSIDE RECORDS SUMMARY | 2024-09-29 13:36 | XMS_ITS | Encounter Summary ---
Author Organization [facility] Address [address] [place] [address] Phone Care Team Providers Care Web Portal Developer Name Role Phone Nicolas Greer MD Primary Care Provider [phone] Ariel Christiansen MD Unavailable [phone] Parmjit Vogel MD Unavailable [phone] Nicolas Greer MD Primary Care Provider [phone] Keny Saldaña APRN, [employer] Unavailable Cristian Dewitt MD Unavailable Ale Black RN Unavailable Unavailable Ale Spain RN Unavailable Unavailable Jerardo MCCANN MD, Courtney Unavailable [phone] Raghu Green MD Unavailable Warren Osborn MD Unavailable Ale Spain RN Unavailable Unavailable Chetan Do MD Unavailable Encounter Details Date Type Department Care Team (Late st Contact Info) Description 09/06/2021 Home Health Resumpti on of Care Planning [facility] [address] [place] [address] Social History Tobacco Use Types [...] Job Start Date Job End Date Retired [employer] Not on file Not on file Not [...] st Contact Info) Description 02/17/2025 1:00 PM CLERICAL CLERK Office Visit [facility] - [facility] #2 [place] [address] Nicolas Greer MD #[address] [address] 03/23/2025 2:00 PM CLERICAL CLERK Office Visit [facility] - Pulmonology & Sleep Medicine [facility] #2 [place] [address] Raghu Green MD #2 [place] [address] documented as of this encounter Visit Diagnoses Not on filedocumented in this encounter Additional Health Concerns Infection Onset Date Last Indicated Resolved Time COVID - 19 12/24/2021 12/24/2021 12/26/2021 8:07 AM CLERICAL CLERK Respiratory Rule Out - RPA 12/24/2021 12/24/2021 1 02/24/2021 4:41 PM CLERICAL CLERK Influenza 12/24/2021 12/24/2021 12/31/2021 12:1 6 AM CLERICAL CLERK Assessment Noted Time PHQ-9 Depression Total Score: 0 02/12/19 10:45 AM CLERICAL CLERK documented as of this encounter Care Teams Web Portal Developer Relationship Specialty Start Date End Date Nicolas Greer MD #[address] [address] PCP - General Family Medicine 12/22/14 09/07/21 Nicolas Greer MD #[address] [address] PCP - General Family Medicine 09/08/21 Ariel Christiansen MD #[address] [address] Consulting Physician Cardiovascular Disease - Cardiology 07/19/16 [place] [address] [address] Cycling Instructor Pulmonary Disease 06/18/20 Keny Saldaña APRN, [employer] JO[employer] #[address] [address] Nurse Practitioner Advanced Practice Nurse 09/08/21 Cristian Dewitt MD #[address] [address] Consulting Physician Cardiovascular Disease - Cardiology 10/06/21 02/07/24 Ale Spain, [place] Fixture Repairer Fabricator 03/15/22 02/12/23 Ale Spain RN [place] Nurse Fixture Repairer Fabricator 03/15/22 02/13/23 Yamel Kurtz III, MD #2 [place] [address] Consulting Physician Urology 09/11/22 Raghu Green MD #2 [place] [address] Consulting Physician Pulmonary Disease 01/04/22 Warren Osborn MD #[address] [address] Consulting Physician Colon and Rectal Surgery 05/21/23 Ale Spain, RN [place] Nurse Fixture Repairer Fabricator 09/05/23 09/04/24 Chetan Do MD #[address] [phone] Consulting Physician Endocrinology 01/23/24 documented as of this encounter
--- OUTSIDE RECORDS SUMMARY | 2024-09-29 13:36 | XMS_ITS | Encounter Summary ---
Author Organization [facility] Address [address] [place] [address] Phone Care Team Providers Care Investigator Internal Affairs Name Role Phone Ariel Christiansen MD Unavailable [phone] Parmjit Vogel MD Unavailable [phone] Nicolas Greer MD Primary Care Provider [phone] Keny Saldaña APRN, MARY Unavailable Cristian Dewitt MD Unavailable Ktae Kurtz III, MD, Courtney Unavailable [phone] Raghu Green MD Unavailable Warren Osborn MD Unavailable Ale Spain RN Unavailable Unavailable Chetan Do MD Unavailable Reason for Visit * Reason Comments Medication Refill Encounter Details Date Type Department Care Team (Late st Contact Info) Description 04/09/2023 Refill [facility] - [facility] Medicine - [place] #2 [place] [address] Nicolas Greer MD #[address] [address] Medication Refill Social History Tobacco Use Types Packs/Day Years Used Date Smoking Tobacco: Former Cigarettes 0.5 50 Smokeless Tobacco: Never Alcohol Use Standard Drinks/Week Comments No 0 (1 standard drink = 0.6 oz pur e alcohol) [facility] Utilities Answer Date Recorded In the past 12 months has e electric, gas, oil, or water company threatened to shut off services in your home? Patient declined 04/04/2023 Social Connection and Isolation Panel Answer Date Recorded In a typical week, how many times do you talk on the phone with family, friends, or neighbors? Patient declined 04/04/2023 How often do you get togethe r with friends or relatives? Patient declined 04/04/2023 How often do you attend oriental orthodox or episcopal serv ices? 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 [employer] Not on file Not on file Not [...] Med Name: ALBUTEROL HFA 90 MCG INHALER ([place]] 8.5 g 1 Sig: INHALE TWO PUFFS [...] 90 days and meeting all other requirements R STITCHER documented in this encounter Plan of Treatment Upcoming Encounters Date Type Department Care Team (Late st Contact Info) Description 02/17/2025 1:00 PM UPPER STITCHER Office [facility] Medical [facility] - Family Medicine - [place] #2 [place] [address] Nicolas Greer MD #[address] [address] 03/23/2025 2:00 PM UPPER STITCHER Office [facility] - Pulmonology & Sleep Medicine - [place] #2 [place] [address] Raghu Green MD #2 [place] [address] documented as of this encounter Visit Diagnoses Not on filedocumented in this encounter Additional Health Concerns Assessment Noted Time PHQ-9 Depression Total Score: 0 09/22/19 1:48 PM CDT documented as of this encounter Care Teams Investigator Internal Affairs Relationship Specialty Start Date End Date Nicolas Greer MD #[address] [address] PCP - General Family Medicine 09/08/21 Ariel Christiansen MD Consulting Physician Cardiovascular Disease - Cardiology 07/19/16 [place] [address] [address] Veterinary Laboratory Diagnostician Pulmonary Disease 06/18/20 Keny Saldaña APRN, STRIP STAMP STRAIGHTENER #[address] [address] Nurse Practitioner Advanced Practice Nurse 09/08/21 Cristian Dewitt MD #[address] [address] Consulting Physician Cardiovascular Disease - Cardiology 10/06/21 02/07/24 Yamel Kurtz III, MD #2 [place] [address] Consulting Physician Urology 09/11/22 Raghu Green MD #2 [place] [address] Consulting Physician Pulmonary Disease 01/04/22 Warren Osborn MD #[address] [address] Consulting Physician Colon and Rectal Surgery 05/21/23 Ale Spain, RN [place] Nurse Medical Reception Specialist 09/05/23 09/04/24 Chetan Do MD #[address] [address] Consulting Physician Endocrinology 01/23/24 documented as of this encounter
--- OUTSIDE RECORDS SUMMARY | 2024-09-29 13:36 | XMS_ITS | Encounter Summary ---
Author Organization [facility] Address [address] [place] [address] Phone Care Team Providers Care Colliery Clerk Name Role Phone Ariel Christiansen MD Unavailable [phone] Parmjit Vogel MD Unavailable [phone] Nicolas Greer MD Primary Care Provider [phone] Keny Saldaña APRN, PLA[employer] POLICE OFFICER Unavailable Cristian Dewitt MD Unavailable Ale Black RN Unavailable Unavailable Ale Spain RN Unavailable Unavailable Jerardo MCCANN MD, Courtney Unavailable [phone] Raghu Green MD Unavailable Warren Osborn MD Unavailable Ale Spain RN Unavailable Unavailable Chetan Do MD Unavailable Reason for Visit * Reason Comments Medication Refill Encounter Details Date Type Department Care Team (Late st Contact Info) Description 01/05/2023 Refill [facility] #2 [place] [address] Nicolas Greer MD #[address] [address] Medication Refill Social History Tobacco Use Types [...] Job Start Date Job End Date Retired [employer] Not on file Not on file Not [...] [place] 01/09/22 Telemedicine Keny Saldaña APRN, MARY [facility] Showing recent visits within past 365 [...] Recent Visits Date Type Provider Dept 12/21/22 Nicolas Pierce MD [facility] 09/21/22 Office Visit Nicolas Greer MD [facility] 07/18/22 Telemedicine Nicolas Greer MD [facility] 06/21/22 Office Visit Nicolas Greer MD [facility] 03/22/22 Office Visit Nicolas Greer MD [facility] 03/07/22 Telemedicine Nicolas Greer MD [facility] 02/13/22 Telemedicine Nicolas Greer MD [facility] 01/11/22 Telemedicine Nicolas Greer MD [facility] 01/09/22 Telemedicine Keny Saldaña APRN, MARY [facility] Show[facility] recent visits within past 365 [...] Dept 12/21/22 Telemedicine Nicolas Greer MD [facility] [place] 09/21/22 Office Visit Nicolas Greer MD [facility] 07/18/22 Telemedicine Nicolas Greer MD [facility] 06/21/22 Office Visit Nicolas Greer MD [facility] 03/22/22 Office Visit Nicolas Greer MD [facility] 03/07/22 Telemedicine Nicolas Greer MD [facility] 02/13/22 Telemedicine Nicolas Greer MD [facility] [place] 01/11/22 Telemedicine Nicolas Greer MD [facility] [place] 01/09/22 Telemedicine Keny Saldaña, ASSISTANT BRAND MANAGER, PLAIN [employer] POLICE OFFICER [facility] Showing recent visits within past [...] Dept 09/21/22 Office Visit Nicolas Greer MD [facility] 06/21/22 Office Visit Nicolas Greer MD [facility] Showing recent visits within past 270 days and meeting all other requirements Future Appointments No visits were found meeting these conditions. Showing future appointments within next 90 days and meeting all other requirements Passed - Blood pressure on record in past 12 months Clinician-entered: BP Readings from Last 3 Encounters: 11/13/22 145/90 09/21/22 132/84 09/11/22 128/86 Patient-entered: No data recorded SE PANCAKE ROLLER documented in this encounter Plan of Treatment Upcoming Encounters Date Type Department Care Team (Late st Contact Info) Description 02/17/2025 1:00 PM CHEESE PANCAKE ROLLER Office Visit [facility] Medical [facility] - Family Medicine - [place] #2 [place] [address] Nicolas Greer MD #[address] [address] 03/23/2025 2:00 PM CHEESE PANCAKE ROLLER Office Visit [facility] - Pulmonology & Sleep Medicine - [place] #2 [place] [address] Raghu Green MD #2 [place] [address] documented as of this encounter Visit Diagnoses Not on filedocumented in this encounter Additional Health Concerns Assessment Noted Time PHQ-9 Depression Total Score: 0 09/22/19 1:48 PM CDT documented as of this encounter Care Teams Colliery Clerk Relationship Specialty Start Date End Date Nicolas Greer MD #[address] [place] [address] PCP - General Family Medicine 09/08/21 Ariel Christiansen MD Consulting Physician Cardiovascular Disease - Cardiology 07/19/16 [place] [address] [address] Behavioral Consultant Pulmonary Disease 06/18/20 Keny Saldaña ASSISTANT BRAND MANAGER, PLAIN [employer]OTHES POLICE OFFICER #[address] [address] Nurse Practitioner Advanced Practice Nurse 09/08/21 Cristian Dewitt MD #[address] [address] Consulting Physician Cardiovascular Disease - Cardiology 10/06/21 02/07/24 Ale Spain, RN [place] Packing House Laborer 03/15/22 02/12/23 Ale Spain, RN [place] Nurse Packing House Laborer 03/15/22 02/13/23 Yamel Kurtz III, MD #2 [place] [address] Consulting Physician Urology 09/11/22 Raghu Green MD #2 [place] [address] Consulting Physician Pulmonary Disease 01/04/22 Warren Osborn MD #[address] [address] Consulting Physician Colon and Rectal Surgery 05/21/23 Ale Spain, RN [place] Nurse Packing House Laborer 09/05/23 09/04/24 Chetan Do MD #[address] [address] Consulting Physician Endocrinology 01/23/24 documented as of this encounter
--- OUTSIDE RECORDS SUMMARY | 2024-09-29 13:37 | XMS_ITS | Encounter Summary ---
Author Organization [facility] Address [address] [place] [address] Phone Care Team Providers Care Barrel Turner Name Role Phone Ariel Christiansen MD Unavailable [phone] Parmjit Vogel MD Unavailable [phone] Nicolas Greer MD Primary Care Provider [phone] Keny Saldaña APRN, MARY Unavailable Cristian Dewitt MD Unavailable Kate Kurtz III, MD, Courtney Unavailable [phone] Raghu Green MD Unavailable Warren Osborn MD Unavailable Ale Spain RN Unavailable Unavailable Chetan Do MD Unavailable Reason for Visit * Reason Comments Medication Refill Encounter Details Date Type Department Care Team (Late st Contact Info) Description 07/27/2023 Refill [facility] - Family Medicine - [place] #2 [place] [address] Nicolas Greer MD #[address] [address] Medication Refill Social History Tobacco Use Types Packs/Day Years Used Date Smoking Tobacco: Former Cigarettes 0.5 50 1 957 - 2007 Smokeless Tobacco: Never Alcohol Use Standard Drinks/Week Comments No 0 (1 standard drink = 0.6 oz pur e alcohol) [facility] Utilities Answer Date Recorded In [...] declined 07/17/2023 How often do you attend anabaptism or methodist serv ices? Patient declined 07/17/2023 Do you belong to any clubs o r organizations such as anabaptism groups, unions, fraternal or athletic groups, or [...] Total Score - Questions 1-9 0 09/05 [facility] [place] of Occupat ional Health - Occupational Stress [...] any time in the past 12 m [facility], were you homeless or living in [...] Job Start Date Job End Date Retired [employer] Not on file Not on file Not [...] Med Name: ALBUTEROL HFA 90 MCG INHALER (ND] 8.5 g 1 Sig: INHALE 2 PUFFS [...] [place] 09/21/22 Office Visit [facility] Show[facility] recent visits within past 365 days and meeting all other requirements Future Appointments Date Type Provider Dept 10/25/23 Appointment [facility] Showing future appointments within next 90 days and meeting all other requirements documented in this encounter Plan of Treatment Upcoming Encounters Date Type Department Care Team (Late st Contact Info) Description 02/17/2025 1:00 PM CLIENT PROGRAM MANAGER Office Visit [facility] Medical [facility] Family Medicine - [place] #2 [place] [address] Nicolas Greer MD #[address] [address] 03/23/2025 2:00 PM CLIENT PROGRAM MANAGER Office Visit [facility] - Pulmonology & Sleep Medicine [facility] #2 [place] [address] Raghu Green MD #2 [place] [address] documented as of this encounter Visit Diagnoses Diagnosis Chronic obstructive pulmonary disease with acute exacerbation (HCC) Obstructive chronic bronchitis with exacerbation documented in this encounter Additional Health Concerns Assessment Noted Time PHQ-9 Depression Total Score: 0 09/22/19 23 1:48 PM CDT documented as of this encounter Care Teams Barrel Turner Relationship Specialty Start Date End Date Nicolas Greer MD #[address] [address] PCP - General Family Medicine 09/08/21 Ariel Christiansen MD Consulting Physician Cardiovascular Disease - Cardiology 07/19/16 [place] [address] [facility] [address] [place] [address] Rail Car Repairer Pulmonary Disease 06/18/20 Keny Saldaña APRN, INSIDE SALES ASSISTANT #[address] [address] Nurse Practitioner Advanced Practice Nurse 09/08/21 Cristian Dewitt MD #[address] [address] Consulting Physician Cardiovascular Disease - Cardiology 10/06/21 02/07/24 Yamel Kurtz III, MD #2 [place] [address] Consulting Physician Urology 09/11/22 Raghu Green MD #2 [place] [address] Consulting Physician Pulmonary Disease 01/04/22 Warren Osborn MD #[address] [address] Consulting Physician Colon and Rectal Surgery 05/21/23 Ale Spain, RN [place] Nurse Indirect Sales Representative 09/05/23 09/04/24 Chetan Do MD #[address] [phone] Consulting Physician Endocrinology 01/23/24 documented as of this encounter
--- OUTSIDE RECORDS SUMMARY | 2024-09-29 13:37 | XMS_ITS | Encounter Summary ---
Author Organization [facility] Address [address] [place] [place] [address] Phone Care Team Providers Care Machine Stamper Name Role Phone Nicolas Greer MD Primary Care Provider [phone] Ariel Christiansen MD Unavailable [phone] Parmjit Vogel MD Unavailable [phone] Nicolas Greer MD Primary Care Provider [phone] Keny Saldaña APRN, TRAFFIC RATE CLERK Unavailable Cristian Dewitt MD Unavailable Ale Black RN Unavailable Unavailable Ale Spain RN Unavailable Unavailable Jerardo MCCANN MD, Courtney Unavailable [phone] Raghu Green MD Unavailable Warren Osborn MD Unavailable Ale Spain RN Unavailable Unavailable Chetan Do MD Unavailable Reason for Visit * Reason Comments Medication Refill Encounter Details Date Type Department Care Team (Late st Contact Info) Description 11/17/2020 Refill [facility] #2 [place] [address] Nicolas Greer MD [address] [place] [id number] Medication Refill Social History Tobacco Use Types [...] Industry Job Start Date Job End Date [employer] Not on file Not on file Not [...] Blepharitis of left lower eyelid, unspecified type [facility] - Nicolas Waters MD 4 months ago COPD exacerbation (HCC) [facility] - Nicolas Waters MD 5 months ago SOB (shortness of breath) [facility] - Nicolas Waters MD 8 months ago Chronic obstructive pulmonary disease, unspecified COPD type (HCC) [facility] - Nicolas Waters MD 1 year ago Hyperlipidemia, unspecified hyperlipidemia type [facility] - Family [facility] [place] [facility] Nicolas Greer MD Upcoming Appointments Future Appointments In 1 month Nicolas Greer MD [facility] [place], [facility] SAMPLER RADIOACTIVE WASTE - Recent and Past Visits Recent Visits [...] st Contact Info) Description 02/17/2025 1:00 PM BARREL LATHE OPERATOR Office Visit [facility] #2 [place] [address] Nicolas Greer MD #[address] [address] 03/23/2025 2:00 PM BARREL LATHE OPERATOR Office Visit [facility] - Pulmonology & Sleep Medicine [facility] #2 [place] [address] Raghu Green MD #2 [place] [address] documented as of this encounter Visit Diagnoses Diagnosis Pulmonary emphysema, unspecified emphysema type (HCC) documented in this encounter Additional Health Concerns Infection Onset Date Last Indicated Resolved Time COVID - 19 09/02/2021 09/02/2021 09/03/2021 2:05 PM CDT COVID - 19 12/24/2021 12/24/2021 12/26/2021 8:07 AM BARREL LATHE OPERATOR Respiratory Rule Out - RPA 12/24/2021 12/24/2021 1 02/24/2021 4:41 PM BARREL LATHE OPERATOR Influenza 12/24/2021 12/24/2021 12/31/2021 12:1 6 AM BARREL LATHE OPERATOR Assessment Noted Time PHQ-9 Depression Total Score: 0 02/12/19 10:45 AM BARREL LATHE OPERATOR documented as of this encounter Care Teams Machine Stamper Relationship Specialty Start Date End Date Nicolas Greer MD #[address] [address] PCP - General Family Medicine 12/22/14 09/07/21 Nicolas Greer MD #[address] [address] PCP - General Family Medicine 09/08/21 Ariel Christiansen MD #[address] [address] Consulting Physician Cardiovascular Disease - Cardiology 07/19/16 [place] [id number] [address] Architectural Examiner Pulmonary Disease 06/18/20 Keny Saldaña APRN, TRAFFIC RATE CLERK #[address] [address] Nurse Practitioner Advanced Practice Nurse 09/08/21 Cristian Dewitt MD #[address] [address] Consulting Physician Cardiovascular Disease - Cardiology 10/06/21 02/07/24 Ale Spain, RN [place] Dynamics Ax Consultant 03/15/22 02/12/23 Ale Spain, RN [place] Nurse Dynamics Ax Consultant 03/15/22 02/13/23 Yamel Kurtz III, MD #2 [place] [address] Consulting Physician Urology 09/11/22 Raghu Green MD #2 [place] [address] Consulting Physician Pulmonary Disease 01/04/22 Warren Osborn MD #[address] [address] Consulting Physician Colon and Rectal Surgery 05/21/23 Ale Spain, RN [place] Nurse Dynamics Ax Consultant 09/05/23 09/04/24 Chetan Do MD #[address] [address] Consulting Physician Endocrinology 01/23/24 documented as of this encounter
--- OUTSIDE RECORDS SUMMARY | 2024-09-29 13:37 | XMS_ITS | Encounter Summary ---
Author Organization [facility] Address [address] [place] [address] Phone Care Team Providers Care Double Backer Name Role Phone Ariel Christiansen MD Unavailable [phone] Parmjit Vogel MD Unavailable [phone] Nicolas Greer MD Primary Care Provider [phone] Keny Saldaña APRN, MARY Unavailable Cristian Dewitt MD Unavailable Kate Kurtz III, MD, Courtney Unavailable [phone] Raghu Green MD Unavailable Warren Osborn MD Unavailable Ale Spain RN Unavailable Unavailable Chetan Do MD Unavailable Reason for Visit * Reason Comments Medication Refill Encounter Details Date Type Department Care Team (Late st Contact Info) Description 06/21/2023 Refill [facility] - [place] #2 [place] [address] Nicolas Greer MD #[address] [address] Medication Refill Social History Tobacco Use Types Packs/Day Years Used Date Smoking Tobacco: Former Cigarettes 0.5 50 1 957 - 2007 Smokeless Tobacco: Never Alcohol Use Standard Drinks/Week Comments No 0 (1 standard drink = 0.6 oz pur e alcohol) [facility] Utilities Answer Date Recorded In the [...] declined 04/04/2023 How often do you attend sabianism or adventist serv ices? Patient declined 04/04/2023 Do you belong to any clubs o r organizations such as sabianism groups, unions, fraternal or athletic groups, or [...] Total Score - Questions 1-9 0 09/05 [facility] Summers of Occupat ional Health - Occupational Stress [...] a fpc (including now)? Patient declined 04/04/2023 Education Answer [...] Job Start Date Job End Date Retired [employer] Not on file Not on file Not [...] st Contact Info) Description 02/17/2025 1:00 PM PARAPROFESSIONAL AIDE TEACHER Office Visit [facility] - Family Medicine - [place] #2 [place] [address] Nicolas Greer MD #[address] [address] 03/23/2025 2:00 PM PARAPROFESSIONAL AIDE TEACHER Office Visit [facility] - Pulmonology & Sleep Medicine [facility] #2 [place] [address] Raghu Green MD #2 [place] [address] documented as of this encounter Visit Diagnoses Diagnosis Depression with anxiety Dysthymic disorder documented in this encounter Additional Health Concerns Assessment Noted Time PHQ-9 Depression Total Score: 0 09/22/19 1:48 PM CDT documented as of this encounter Care Teams Double Backer Relationship Specialty Start Date End Date Nicolas Greer MD #[address] [address] PCP - General Family Medicine 09/08/21 Ariel Christiansen MD Consulting Physician Cardiovascular Disease - Cardiology 07/19/16 [place] [address] [address] Gun Profiler Pulmonary Disease 06/18/20 Keny Saldaña APRN, CANDY BAR ATTENDANT #[address] [address] Nurse Practitioner Advanced Practice Nurse 09/08/21 Cristian Dewitt MD #[address] [address] Consulting Physician Cardiovascular Disease - Cardiology 10/06/21 02/07/24 Yamel Kurtz III, MD #2 [place] [address] Consulting Physician Urology 09/11/22 Raghu Green MD #2 [place] [address] Consulting Physician Pulmonary Disease 01/04/22 Warren Osborn MD #[address] [address] Consulting Physician Colon and Rectal Surgery 05/21/23 Ale Spain, RN [place] Nurse Tin Stacker 09/05/23 09/04/24 Chetan Do MD #[address] [address] Consulting Physician Endocrinology 01/23/24 documented as of this encounter
--- OUTSIDE RECORDS SUMMARY | 2024-09-29 13:37 | XMS_ITS | Encounter Summary ---
Author Organization [facility] Address [address] [place] [place] [address] Phone Care Team Providers Care Master Welder Name Role Phone Nicolas Greer MD Primary Care Provider [phone] Ariel Christiansen MD Unavailable [phone] Parmjit Vogel MD Unavailable [phone] Nicolas Greer MD Primary Care Provider [phone] Keny Saldaña APRN, AUTOMOTIVE REFINISH TECHNICIAN Unavailable Cristian Dewitt MD Unavailable Ale Black RN Unavailable Unavailable Ale Spain RN Unavailable Unavailable Jerardo MCCANN MD, Courtney Unavailable [phone] Raghu Green MD Unavailable Warren Osborn MD Unavailable Ale Spain RN Unavailable Unavailable Chetan Do MD Unavailable Reason for Visit * Reason Comments Medication Refill Encounter Details Date Type Department Care Team (Late st Contact Info) Description 07/29/2020 Refill [facility] #2 [place] [address] Nicolas Greer MD [address] [place] [id number] Medication Refill Social History Tobacco Use Types [...] Job Start Date Job End Date Retired [employer] Not on file Not on file [...] month ago COPD exacerbation (HCC) [facility] - Family [facility] - Nicolas Waters MD 1 month ago SOB (shortness of breath) [facility] - Nicolas Waters MD 4 months ago Chronic obstructive pulmonary disease, unspecified COPD type (HCC) [facility] MD 9 months ago Hyperlipidemia, unspecified hyperlipidemia type [facility] Waters MD 1 year ago Pulmonary emphysema, unspecified emphysema type (HCC) [facility] - Keny Crowder APN, CNP Upcoming Appointments Future Appointments In 1 month [facility] REINFOR[facility] IRON WORKER HELPER - Recent and Past Visits Recent Visits Date Type Provider Dept 06/21/20 Office Visit Nicolas Greer MD [facility] 06/08/20 Office Visit Nicolas Greer MD [facility] 03/11/20 Office Visit Nicolas Greer MD [facility] 10/14/19 Office Visit Nicolas Greer MD [facility] 07/14/19 Office Visit Keny Saldaña APN, CNP [facility] 05/22/19 Telemedicine Ken[facility]da[facility] APN, [facility] Show[facility] recent visits within past 460 [...] Visits 1 month ago COPD exacerbation (HCC) [facility] Nicolas Waters MD 1 month ago SOB (shortness of breath) [facility] Nicolas Waters MD 4 months ago Chronic obstructive pulmonary disease, unspecified COPD type (HCC) [facility] Nicolas Esquivel MD 9 months ago Hyperlipidemia, unspecified hyperlipidemia type [facility] Nicolas Waters MD 1 year ago Pulmonary emphysema, unspecified emphysema type (HCC) [facility] Keny Crowder APN, CNP Upcoming Appointments Future Appointments In 1 month Nicolas Greer MD [facility] Serafin [facility] REINFORCING IRON WORKER HELPER - Recent and Past Visits Recent Visits Date Type Provider Dept 06/21/20 Office Visit Nicolas Greer MD [facility] 06/08/20 Office Visit Nicolas Greer MD [facility] 03/11/20 Office Visit Nicolas Greer MD [facility] 10/14/19 Office Visit Nicolas Greer MD [facility] 07/14/19 Office Visit Keny Saldaña APN, MARY [facility] 05/22/19 Telemedicine Keny Saldaña APN, MARY [facility] Showing recent visits within past 460 [...] Visits 1 month ago COPD exacerbation (HCC) [facility] Nicolas Waters MD 1 month ago SOB (shortness of breath) [facility] Nicolas Waters MD 4 months ago Chronic obstructive pulmonary disease, unspecified COPD type (HCC) [facility] Nicolas Waters MD 9 months ago Hyperlipidemia, unspecified hyperlipidemia type [facility] Nicolas Waters MD 1 year ago Pulmonary emphysema, unspecified emphysema type (HCC) [facility]N, AUTOMOTIVE REFINISH TECHNICIAN Upcoming Appointments Future Appointments In 1 month [facility] REINFORCING IRON WORKER HELPER - Recent and Past Visits Recent Visits Date Type Provider Dept 06/21/20 Office Visit Nicolas Greer MD [facility] 06/08/20 Office Visit Nicolas Greer MD [facility] 03/11/20 Office Visit Nicolas Greer MD [facility] 10/14/19 Office Visit Nicolas Greer MD [facility] 07/14/19 Office Visit Keny Saldaña APN, CNP [facility] 05/22/19 Telemedicine Keny Saldaña APN, MARY [facility] Showing recent visits within past 460 [...] st Contact Info) Description 02/17/2025 1:00 PM MORTGAGE MANAGER Office Visit [facility] Medical [facility] - Family Medicine - [place] #2 [place] [address] Nicolas Greer MD #[address] [address] 03/23/2025 2:00 PM MORTGAGE MANAGER Office Visit [facility] - Pulmonology & Sleep Medicine [facility] #2 [place] [address] Raghu Green MD #2 [place] [address] documented as of this encounter Visit Diagnoses Diagnosis Pulmonary emphysema, unspecified emphysema type (HCC) Controlled type 2 diabetes mellitus without complication (HCC) documented in this encounter Additional Health Concerns Infection Onset Date Last Indicated Resolved Time COVID - 19 09/02/2021 09/02/2021 09/03/2021 2:05 PM CDT COVID - 19 12/24/2021 12/24/2021 12/26/2021 8:07 AM MORTGAGE MANAGER Respiratory Rule Out - RPA 12/24/2021 12/24/2021 1 02/24/2021 4:41 PM MORTGAGE MANAGER Influenza 12/24/2021 12/24/2021 12/31/2021 12:1 6 AM MORTGAGE MANAGER Assessment Noted Time PHQ-9 Depression Total Score: 0 02/12/19 10:45 AM MORTGAGE MANAGER documented as of this encounter Care Teams Master Welder Relationship Specialty Start Date End Date Nicolas Greer MD #[address] [address] PCP - General Family Medicine 12/22/14 09/07/21 Nicolas Greer MD #[address] [address] PCP - General Family Medicine 09/08/21 Ariel Christiansen MD #[address] [address] Consulting Physician Cardiovascular Disease - Cardiology 07/19/16 [place] [address] [address] Form Tamper Operator Pulmonary Disease 06/18/20 Keny Saldaña, BRIQUETTER OPERATOR, AUTOMOTIVE REFINISH TECHNICIAN #[address] [address] Nurse Practitioner Advanced Practice Nurse 09/08/21 Cristian Dewitt MD #[address] [address] Consulting Physician Cardiovascular Disease - Cardiology 10/06/21 02/07/24 Ale Spain, RN [place] Opera Singer 03/15/22 02/12/23 Ale Spain, RN [place] Nurse Opera Singer 03/15/22 02/13/23 Yamel Kurtz III, MD #2 [place] [address] Consulting Physician Urology 09/11/22 Raghu Green MD #2 [place] [address] Consulting Physician Pulmonary Disease 01/04/22 Warren Osborn MD #[address] [address] Consulting Physician Colon and Rectal Surgery 05/21/23 Ale Spain, RN [place] Nurse Opera Singer 09/05/23 09/04/24 Chetan Do MD #[address] [address] Consulting Physician Endocrinology 01/23/24 documented as of this encounter
--- OUTSIDE RECORDS SUMMARY | 2024-09-29 13:37 | XMS_ITS | Encounter Summary ---
Author Organization [facility] Address [address] [place] [place] [address] Phone Care Team Providers Care Foundation Drill Operator Name Role Phone Nicolas Greer MD Primary Care Provider [phone] Ariel Christiansen MD Unavailable [phone] Parmjit Vogel MD Unavailable [phone] Nicolas Greer MD Primary Care Provider [phone] Keny Saldaña APRN, SECURITIES ATTORNEY Unavailable Cristian Dewitt MD Unavailable Ale Black RN Unavailable Unavailable Ale Spain RN Unavailable Unavailable Jerardo MCCANN MD, Courtney Unavailable [phone] Raghu Green MD Unavailable Warren Osborn MD Unavailable Ale Spain RN Unavailable Unavailable Chetan Do MD Unavailable Reason for Visit * Reason Comments Medication Refill Encounter Details Date Type Department Care Team (Late st Contact Info) Description 06/07/2020 Refill [facility] #2 [place] [address] Nicolas Greer MD [address] [place] [id number] Medication Refill Social History Tobacco Use Types [...] Job Start Date Job End Date Retired [employer] Not on file Not on file Not [...] - Family Medicine - Keny Crowder APN, SECURITIES ATTORNEY 1 year ago Ptosis of both eyelids [facility] - Keny Crowder APN, MARY 1 year ago Hypothyroidism, unspecified type [facility] - Nicolas Waters MD Upcoming Appointments Future Appointments Tomorrow Nicolas Greer MD [facility] Family [facility] - Seraf[place], [facility] ASSISTANT PRINTER FLOOR COVERING - Recent and Past Visits Recent Visits Date Type Provider Dept 03/11/20 Office Visit Nicolas Greer MD [facility] 10/14/19 Office Visit Nciolas Greer MD [facility] 07/14/19 Office Visit Keny Saldaña APN, CNP [facility] 05/22/19 Telemedicine Keny Saldaña APN, MARY [place] [...] Visit Keny Saldaña APN, MARY [place] Showing recent visits within past 365 [...] obstructive pulmonary disease, unspecified COPD type (HCC) [facility] - Nicolas Waters MD 7 months ago Hyperlipidemia, unspecified hyperlipidemia type [facility] Nicolas Waters MD 10 months ago Pulmonary emphysema, unspecified emphysema type (HCC) [facility] - Keny Crowder APN, MARY 1 year ago Ptosis of both eyelids [facility] - Keny Crowder APN, MARY 1 year ago Hypothyroidism, unspecified type [facility] Nicolas Waters MD Upcoming Appointments Future Appointments Tomorrow Nicolas Greer MD [facility] Serafin [facility] ASSISTANT PRINTER FLOOR COVERING - Recent and Past Visits Recent Visits Date Type Provider Dept 03/11/20 Office Visit Nicolas Greer MD [facility] 10/14/19 Office Visit Nicolas Greer MD [facility] 07/14/19 Office Visit Keny Saldaña APN, MARY [facility] 05/22/19 Telemedicine Keny Saldaña APN, MARY Garzarahul [...] obstructive pulmonary disease, unspecified COPD type (HCC) [facility] Nicolas Waters MD 7 months ago Hyperlipidemia, unspecified hyperlipidemia type [facility] Nicolas Waters MD 10 months ago Pulmonary emphysema, unspecified emphysema type (HCC) [facility] - Keny Crowder APN, MARY 1 year ago Ptosis of both eyelids [facility] - Keny Crowder APN, MARY 1 year ago Hypothyroidism, unspecified type [facility] Nicolas Waters MD Upcoming Appointments Future Appointments Tomorrow Nicolas Greer MD [facility] ASSISTANT PRINTER FLOOR COVERING - Recent and Past Visits Recent Visits [...] Provider Dept 06/08/20 Appointment Nicolas Greer MD [facility] Showing future appointments within next 90 days with a meds authorizing provider and meeting all other requirements documented in this encounter Plan of Treatment Upcoming Encounters Date Type Department Care Team (Late st Contact Info) Description 02/17/2025 1:00 PM PLATE PAINTER Office Visit [facility] - Family Medicine - [place] #2 [place] [address] Nicolas Greer MD #[address] [place] [address] 03/23/2025 2:00 PM PLATE PAINTER Office Visit [facility] - Pulmonology & Sleep Medicine [facility] #2 [place] [address] Raghu Green MD #2 [facility] [place] [address] documented as of this encounter Visit Diagnoses Diagnosis Depression with anxiety Dysthymic disorder Pulmonary emphysema, unspecified emphysema type (HCC) documented in this encounter Additional Health Concerns Infection Onset Date Last Indicated Resolved Time COVID - 19 09/02/2021 09/02/2021 09/03/2021 2:05 PM CDT COVID - 19 12/24/2021 12/24/2021 12/26/2021 8:07 AM PLATE PAINTER Respiratory Rule Out - RPA 12/24/2021 12/24/2021 1 02/24/2021 4:41 PM PLATE PAINTER Influenza 12/24/2021 12/24/2021 12/31/2021 12:1 6 AM PLATE PAINTER Assessment Noted Time PHQ-9 Depression Total Score: 0 02/12/19 10:45 AM PLATE PAINTER documented as of this encounter Care Teams Foundation Drill Operator Relationship Specialty Start Date End Date Nicolas Greer MD #[address] [place] [address] PCP - General Family Medicine 12/22/14 09/07/21 Nicolsa Greer MD #[address] [address] PCP - General Family Medicine 09/08/21 Ariel Christiansen MD #[address] [address] Consulting Physician Cardiovascular Disease - Cardiology 07/19/16 [place] [address] [address] Coder Pulmonary Disease 06/18/20 Keny Saldaña APRN, SECURITIES ATTORNEY #[address] [address] Nurse Practitioner Advanced Practice Nurse 09/08/21 Cristian Dewitt MD #[address] [address] Consulting Physician Cardiovascular Disease - Cardiology 10/06/21 02/07/24 Ale Spain, RN [place] Government Relations Analyst 03/15/22 02/12/23 Ale Spain, RN [place] Nurse Government Relations Analyst 03/15/22 02/13/23 Yamel Kurtz III, MD #2 [place] [address] Consulting Physician Urology 09/11/22 Raghu Green MD #2 [place] [address] Consulting Physician Pulmonary Disease 01/04/22 Warren Osborn MD #[address] [address] Consulting Physician Colon and Rectal Surgery 05/21/23 Ale Spain RN [place] Nurse Government Relations Analyst 09/05/23 09/04/24 Chetan Do MD #[address] [address] Consulting Physician Endocrinology 01/23/24 documented as of this encounter
--- OUTSIDE RECORDS SUMMARY | 2024-09-29 13:37 | XMS_ITS | Encounter Summary ---
Author Organization [facility] Address [address] [place] [place] [address] Phone Care Team Providers Care Retouching Operator Name Role Phone Nicolas Greer MD Primary Care Provider [phone] Ariel Christiansen MD Unavailable [phone] Parmjit Vogel MD Unavailable [phone] Nicolas Greer MD Primary Care Provider [phone] Keny Saldaña APRN, PRODUCTION POTTER Unavailable Cristian Dewitt MD Unavailable Ale Black RN Unavailable Unavailable Ale Spain RN Unavailable Unavailable Jerardo MCCANN MD, Courtney Unavailable [phone] Raghu Green MD Unavailable Warren Osborn MD Unavailable Ale Spain RN Unavailable Unavailable Chetan Do MD Unavailable Reason for Visit * Reason Onset Date Comments Medication Refill Medication Refill 09/13/2020 Encounter Details Date Type Department Care Team (Late st Contact Info) Description 09/10/2020 Refill [facility] - [facility] #2 [place] [address] Nicolas Greer MD #[address] [address] Medication Refill; Medication Refill Social History Tobacco [...] Industry Job Start Date Job End Date [employer] Not on file Not on file Not [...] Visits 2 months ago COPD exacerbation (HCC) [facility] Nicolas Waters MD 3 months ago SOB (shortness of breath) [facility] Nicolas Waters MD 6 months ago Chronic obstructive pulmonary disease, unspecified COPD type (HCC) [facility] Nicolas Waters MD 11 months ago Hyperlipidemia, unspecified hyperlipidemia type [facility] Nicolas Waters MD 1 year ago Pulmonary emphysema, unspecified emphysema type (HCC) [facility] Keny Crowder APN, MARY Upcoming Appointments Future Appointments In 1 week Nicolas Greer MD [facility] DU[facility]IC[facility] MACHINE OPERATOR - Recent and Past Visits Recent Visits Date Type Provider Dept 06/21/20 Office Visit Nicolas Greer MD [facility] 06/08/20 Office Visit Nicolas Greer MD [facility] 03/11/20 Office Visit Nicolas Greer MD [facility] 10/14/19 Office Visit Nicolas Greer MD [facility] 07/14/19 Office Visit Keny Saldaña APN, MARY [facility] Showing recent visits within past 460 [...] st Contact Info) Description 02/17/2025 1:00 PM MACHINERY DISMANTLER Office Visit [facility] Medical [facility] - Family Medicine - [place] #2 [place] [address] Nicolas Greer MD #[address] [place] [address] 03/23/2025 2:00 PM MACHINERY DISMANTLER [facility] [place] #2 [place] [address] Raghu Green MD #2 [place] [address] documented as of this encounter Visit Diagnoses Diagnosis Depression with anxiety Dysthymic disorder Pulmonary emphysema, unspecified emphysema type (HCC) documented in this encounter Additional Health Concerns Infection Onset Date Last Indicated Resolved Time COVID - 19 09/02/2021 09/02/2021 09/03/2021 2:05 PM CDT COVID - 19 12/24/2021 12/24/2021 12/26/2021 8:07 AM MACHINERY DISMANTLER Respiratory Rule Out - RPA 12/24/2021 12/24/2021 1 02/24/2021 4:41 PM MACHINERY DISMANTLER Influenza 12/24/2021 12/24/2021 12/31/2021 12:1 6 AM MACHINERY DISMANTLER Assessment Noted Time PHQ-9 Depression Total Score: 0 02/12/19 20 10:45 AM MACHINERY DISMANTLER documented as of this encounter Care Teams Retouching Operator Relationship Specialty Start Date End Date Nicolsa Greer MD #[address] [address] PCP - General Family Medicine 12/22/14 09/07/21 Nicolas Greer MD #[address] [address] PCP - General Family Medicine 09/08/21 Ariel Christiansen MD #[address] [address] Consulting Physician Cardiovascular Disease - Cardiology 07/19/16 [place] [id number] [address] Lathe Winder Pulmonary Disease 06/18/20 Keny Saldaña APRN, PRODUCTION POTTER #[address] [address] Nurse Practitioner Advanced Practice Nurse 09/08/21 Cristian Dewitt MD #[address] [address] Consulting Physician Cardiovascular Disease - Cardiology 10/06/21 02/07/24 Ale Spain, RN [place] Comparative Sociology Professor 03/15/22 02/12/23 Ale Spain, RN [place] Nurse Comparative Sociology Professor 03/15/22 02/13/23 Yamel Kurtz III, MD #2 [place] [address] Consulting Physician Urology 09/11/22 Raghu Green MD #2 [place] [address] Consulting Physician Pulmonary Disease 01/04/22 Warren Osborn MD #[address] [address] Consulting Physician Colon and Rectal Surgery 05/21/23 Ale Spain, RN [place] Nurse Comparative Sociology Professor 09/05/23 09/04/24 Chetan Do MD #[address] [address] Consulting Physician Endocrinology 01/23/24 documented as of this encounter
--- OUTSIDE RECORDS SUMMARY | 2024-09-29 13:37 | XMS_ITS | Encounter Summary ---
Author Organization [facility] Address [address] [place] [address] Phone Care Team Providers Care Agency Sales Development Associate Name Role Phone Ariel Christiansen MD Unavailable [phone] Parmjit Vogel MD Unavailable [phone] Nicolas Greer MD Primary Care Provider [phone] Keny Saldaña APRN, PEDIATRIC UROLOGIST Unavailable Cristian Dewitt MD Unavailable Kate Kurtz III, MD, Courtney Unavailable [phone] Raghu Green MD Unavailable Warren Osborn MD Unavailable Ale Spain RN Unavailable Unavailable Chetan Do MD Unavailable Reason for Visit * Reason Comments Medication Refill Encounter Details Date Type Department Care Team (Late st Contact Info) Description 05/07/2023 Refill [facility] #2 [place] [id number] Yamel Kurtz III, MD #2 [place] [address] Medication Refill Social History Tobacco Use Types Packs/Day Years Used Date Smoking Tobacco: Former Cigarettes 0.5 50 Smokeless Tobacco: Never Alcohol Use Standard Drinks/Week Comments No 0 (1 standard drink = 0.6 oz pur e alcohol) [facility] Utilities Answer Date Recorded In the [...] declined 04/04/2023 How often do you attend quaker or uatsdin serv ices? Patient declined 04/04/2023 Do you belong to any clubs o r organizations such as quaker groups, unions, fraternal or athletic groups, or [...] Total Score - Questions 1-9 0 09/05 [facility] of Occupat ional Health - Occupational Stress [...] place to sleep or slept in a chcf (including now)? Patient declined 04/04/2023 Education Answer [...] Job Start Date Job End Date Retired [employer] Not on file Not on file Not on file documented as of this encounter Plan of Treatment Upcoming Encounters Date Type Department Care Team (Late st Contact Info) Description 02/17/2025 1:00 PM CRAYON PAINTER Office Visit [facility] - [facility] [address] [place] [address] Nicolas Greer MD [address] [address] 03/23/2025 2:00 PM CRAYON PAINTER Office Visit [facility] - Pulmonology & Sleep Medicine - [place] #2 [place] [address] Raghu Green MD #2 [place] [address] documented as of this encounter Visit Diagnoses Diagnosis Mixed stress and urge urinary incontinence Mixed incontinence urge and stress (male)(female) documented in this encounter Additional Health Concerns Assessment Noted Time PHQ-9 Depression Total Score: 0 09/22/19 23 1:48 PM CDT documented as of this encounter Care Teams Agency Sales Development Associate Relationship Specialty Start Date End Date Nicolas Greer MD #[address] [address] PCP - General Family Medicine 09/08/21 Ariel Christiansen MD Consulting Physician Cardiovascular Disease - Cardiology 07/19/16 [place] [id number] [address] Storage Engineer Pulmonary Disease 06/18/20 Keny Saldaña APRN, PEDIATRIC UROLOGIST #[address] [address] Nurse Practitioner Advanced Practice Nurse 09/08/21 Cristian Dewitt MD #[address] [address] Consulting Physician Cardiovascular Disease - Cardiology 10/06/21 02/07/24 Yamel Kurtz III, MD #2 [place] [address] Consulting Physician Urology 09/11/22 Raghu Green MD #2 [place] [address] Consulting Physician Pulmonary Disease 01/04/22 Warren Osborn MD #[address] [address] Consulting Physician Colon and Rectal Surgery 05/21/23 Ale Spain RN [place] Nurse Machine Operator Transplanter 09/05/23 09/04/24 Chetan Do MD #[address] [phone] Consulting Physician Endocrinology 01/23/24 documented as of this encounter
--- OUTSIDE RECORDS SUMMARY | 2024-09-29 13:37 | XMS_ITS | Encounter Summary ---
Author Organization [facility] Address [address] [place] [place] [address] Phone Care Team Providers Care Media Intern Name Role Phone Ariel Christiansen MD Unavailable [phone] Parmjit Vogel MD Unavailable [phone] Nicolas Greer MD Primary Care Provider [phone] Keny Saldaña APRN, MANAGER SECURITY AND SAFETY Unavailable Cristian Dewitt MD Unavailable Ale Black RN Unavailable Unavailable Ale Spain RN Unavailable Unavailable Jerardo MCCANN MD, Courtney Unavailable [phone] Raghu Green MD Unavailable Warren Osborn MD Unavailable Ale Spain RN Unavailable Unavailable Chetan Do MD Unavailable Encounter Details Date Type Department Care Team (Late st Contact Info) Description 09/14/2021 Lab Requisition [facility] Services [address] [place] [address] Nicolas Greer MD #[address] [address] Hormone resistant malignancy status; Heart failure, unspecified [...] Job Start Date Job End Date Retired [employer] Not on file Not on file Not [...] st Contact Info) Description 02/17/2025 1:00 PM REAL ESTATE BROKER [facility] - [facility] #2 [place] [address] Nicolas Greer MD #[address] [address] 03/23/2025 2:00 PM REAL ESTATE BROKER [facility] - [facility] #2 [place] [address] Raghu Green MD #2 [place] [address] documented as of this encounter Procedures Procedure [...] 12.00 10(3)/mcL 09/14/2021 3:38 PM CDT [facility] RBC 4.15 3.80 - 5.30 10(6)/mcL 09/14/2021 3:38 PM CDT [facility] HEMOGLOBIN (HGB) 12.7 12.0 - 15.8 g/dL 09/14/2021 3:38 PM CDT [facility] HEMATOCRIT (HCT) 42.3 36.0 - 47.0 % 09/14/2021 3:38 PM CDT [facility] MCV 101.9(H) 82.0 - 96.0 fL 09/14/2021 3:38 PM CDT [facility] MCH 30.6 26.0 - 34.0 pg 09/14/2021 3:38 PM CDT [facility] MCHC 30.0(L) 31.0 - 36.0 g/dL 09/14/2021 3:38 PM CDT [facility] PLATELET COUNT 289 140 - 440 10(3)/mcL 09/14/2021 3:38 PM CDT [facility] RDW 13.1 11.8 - 15.5 % 09/14/2021 3:38 PM CDT [facility] MPV 10.5 9.7 - 12.4 fL 09/14/2021 3:38 PM CDT [facility] NEUTROPHILS 77.0(H) 47.0 - 73.0 % 09/14/2021 3:38 PM CDT [facility] LYMPHOCYTES 14.9(L) 18.0 - 42.0 % 09/14/2021 3:38 PM CDT [facility] MONOCYTES 6.2 4.0 - 12.0 % 09/14/2021 3:38 PM CDT [facility] EOSINOPHILS 1.3 0.0 - 5.0 % 09/14/2021 3:38 PM CDT [facility] BASOPHILS 0.6 0.0 - 1.0 % 09/14/2021 3:38 PM CDT [facility] ABSOLUTE NEUTROPHILS 6.72 1.60 - 7.70 10(3)/mcL 09/14/2021 3:38 PM CDT [facility] ABSOLUTE LYMPHOCYTES 1.30 1.30 - 3.20 10(3)/mcL 09/14/2021 3:38 PM CDT [facility] ABSOLUTE MONOCYTES 0.54 0.20 - 1.00 10(3)/mcL 09/14/2021 3:38 PM CDT [facility] ABSOLUTE EOSINOPHIL 0.11 0.00 - 0.40 10(3)/mcL 09/14/2021 3:38 PM CDT [facility] ABSOLUTE BASOPHILS 0.05 0.00 - 0.10 10(3)/mcL 09/14/2021 3:38 PM CDT [facility] NRBC PER 100 WBC 0 09/15/19 3:38 PM CDT [facility] Blood No Phlebotomy Charged / Unknown 09/14/2021 2:30 PM CDT 09/14/2021 3:33 PM CDT Nicolas Greer MD HEMATOLOGY ORDERABLES Fin al Result [facility] #1 [place] [address] * (ABNORMAL) MAGNESIUM (MG) (09/14/2021 2:30 PM CDT) MAGNESIUM 1.7(L) 1.8 - 2.5 mg/dL 09/14/2021 4:01 PM CDT [facility] Blood No Phlebotomy Charged / Unknown 09/14/2021 2:30 PM CDT 09/14/2021 3:33 PM CDT Result [facility] Nicolas Greer MD CHEMISTRY ORDERABLES Jacqueline l Result Performing Organization Address City/[facility]/ZIP Co de Phone Number [facility] #[address] [place] [address] * PHOSPHORUS (PO4) (09/14/2021 2:30 PM CDT) PHOSPHORUS 2.9 2.4 - 4.7 mg/dL 09/14/2021 4:01 PM CDT [facility] Blood No Phlebotomy Charged / Unknown 09/14/2021 2:30 PM CDT 09/14/2021 3:33 PM CDT Nicolas Greer MD CHEMISTRY ORDERABLES Jacqueline l Result [facility] #[address] [place] [address] * (ABNORMAL) BASIC METABOLIC PANEL W/ CALCIUM TOTAL (09/14/2021 2:30 PM CDT) SODIUM 142 136 - 144 mmol/L 09/14/2021 4:01 PM CDT [facility] POTASSIUM 3.8 3.5 - 5.1 mmol/L 09/14/2021 4:01 PM CDT [facility] CHLORIDE 98(L) 100 - 110 mmol/L 09/14/2021 4:01 PM CDT [facility] CO2, VENOUS 38(H) 22 - 32 mmol/L 09/14/2021 4:01 PM CDT [facility] ANION GAP 9.8 8.0 - 20.0 mmol/L 09/14/2021 4:01 PM CDT [facility] GLUCOSE 110(H) 70 - 99 mg/dL 09/14/2021 4:01 PM CDT [facility] BUN 25(H) 8 - 23 mg/dL 09/14/2021 4:01 PM CDT [facility] CREATININE, BLOOD 0.96 0.60 - 1.10 mg/dL 09/14/2021 4:01 PM CDT [facility] BUN/CREATININE RATIO 26(H) 12 - 20 ratio 09/14/2021 4:01 PM CDT [facility] CALCIUM 11.0(H) 8.9 - 10.3 mg/dL 09/14/2021 4:01 PM CDT [facility] GFR, ESTIMATED >60 >=60 09/14/2021 4:01 PM CDT [facility] Comment: Creatinine Clearance is the preferred criteria for selecting drug dose adjustments in renally impaired patients. The GFR is provided as additional pertinent clinical information. GFR is reported in mL/min/1.73 sq m. Blood No Phlebotomy Charged / Unknown 09/14/2021 2:30 PM CDT 09/14/2021 3:33 PM CDT Nicloas Greer MD CHEMISTRY ORDERABLES Jacqueline l Result [facility] #1 [place] [address] documented in this encounter Visit Diagnoses Diagnosis [...] 12/24/2021 12/24/2021 12/26/2021 8:07 AM REAL ESTATE BROKER Respiratory Rule Out - RPA 12/24/2021 12/24/2021 1 02/24/2021 4:41 PM REAL ESTATE BROKER Influenza 12/24/2021 12/24/2021 12/31/2021 12:1 6 AM REAL ESTATE BROKER Assessment Noted Time PHQ-9 Depression Total Score: 0 02/12/19 10:45 AM REAL ESTATE BROKER documented as of this encounter Care Teams Media Intern Relationship Specialty Start Date End Date Nicolas Greer MD #[address] [address] PCP - General Family Medicine 09/08/21 Ariel Christiansen MD Consulting Physician Cardiovascular Disease - Cardiology 07/19/16 [place] [address] [address] Rebrander Pulmonary Disease 06/18/20 Keny Saldaña, ASSISTANT PROFESSOR OF NURSING, MANAGER SECURITY AND SAFETY #[address] [address] Nurse Practitioner Advanced Practice Nurse 09/08/21 Cristian Dewitt MD #[address] [address] Consulting Physician Cardiovascular Disease - Cardiology 10/06/21 02/07/24 Ale Spain, RN [place] Chief Growth Officer 03/15/22 02/12/23 Ale Spain, RN [place] Nurse Chief Growth Officer 03/15/22 02/13/23 Yamel Kurtz III, MD #2 [place] [address] Consulting Physician Urology 09/11/22 Raghu Green MD #2 [place] [address] Consulting Physician Pulmonary Disease 01/04/22 Warren Osborn MD #[address] [address] Consulting Physician Colon and Rectal Surgery 05/21/23 Ale Spain, [place] Nurse Chief Growth Officer 09/05/23 09/04/24 Chetan Do MD #[address] [address] Consulting Physician Endocrinology 01/23/24 documented as of this encounter
--- OUTSIDE RECORDS SUMMARY | 2024-09-29 13:37 | XMS_ITS | Encounter Summary ---
Author Organization [facility] Address [address] [place] [address] Phone Care Team Providers Care Broadcaster Name Role Phone Ariel Christiansen MD Unavailable [phone] Parmjit Vogel MD Unavailable [phone] Nicolas Greer MD Primary Care Provider [phone] Keny Saldaña APRN, MARY Unavailable Cristian Dewitt MD Unavailable Kate Kurtz III, MD, Courtney Unavailable [phone] Raghu Green MD Unavailable Warren Osborn MD Unavailable Ale Spain RN Unavailable Unavailable Chetan Do MD Unavailable Reason for Visit * Reason Comments Medication Refill Encounter Details Date Type Department Care Team (Late st Contact Info) Description 05/28/2023 Refill [facility] - [place] [address] [place] [address] Nicolas Greer MD #[address] [address] Medication Refill Social History Tobacco Use Types Packs/Day Years Used Date Smoking Tobacco: Former Cigarettes 0.5 50 Smokeless Tobacco: Never Alcohol Use Standard Drinks/Week Comments No 0 (1 standard drink = 0.6 oz pur e alcohol) [facility] Utilities Answer Date Recorded In [...] declined 04/04/2023 How often do you attend shinto or christian serv ices? Patient declined 04/04/2023 Do you belong to any clubs o r organizations such as shinto groups, unions, fraternal or athletic groups, or [...] Total Score - Questions 1-9 0 09/05 [facility] of Occupat ional Health - Occupational Stress [...] Industry Job Start Date Job End Date [employer] Not on file Not on file Not [...] st Contact Info) Description 02/17/2025 1:00 PM HIGH LIFT OPERATOR Office Visit [facility] - Family Medicine - [place] [address] [place] [address] Nicolas Greer MD #[address] [address] 03/23/2025 2:00 PM HIGH LIFT OPERATOR [facility] #2 [place] [address] Raghu Green MD #2 [place] [address] documented as of this encounter Visit Diagnoses Diagnosis Edema, unspecified type documented in this encounter Additional Health Concerns Assessment Noted Time PHQ-9 Depression Total Score: 0 09/22/19 23 1:48 PM CDT documented as of this encounter Care Teams Broadcaster Relationship Specialty Start Date End Date Nicolas Greer MD #[address] [address] PCP - General Family Medicine 09/08/21 Ariel Christiansen MD Consulting Physician Cardiovascular Disease - Cardiology 07/19/16 [place] [address] [address] Kettle Operator Head Pulmonary Disease 06/18/20 Keny Saldaña, SENIOR CONSTRUCTION ESTIMATOR, EDGE DRUMMER #[address] [address] Nurse Practitioner Advanced Practice Nurse 09/08/21 Cristian Dewitt MD #[address] [address] Consulting Physician Cardiovascular Disease - Cardiology 10/06/21 02/07/24 Yamel Kurtz III, MD #2 [place] [address] Consulting Physician Urology 09/11/22 Raghu Green MD #2 [place] [address] Consulting Physician Pulmonary Disease 01/04/22 Warren Osborn MD #[address] [address] Consulting Physician Colon and Rectal Surgery 05/21/23 Ale Spain RN [place] Nurse Admittance Attendant 09/05/23 09/04/24 Chetan Do MD #[address] [phone] Consulting Physician Endocrinology 01/23/24 documented as of this encounter
--- OUTSIDE RECORDS SUMMARY | 2024-09-29 13:37 | XMS_ITS | Encounter Summary ---
Author Organization [facility] Address [address] [place] [address] Phone Care Team Providers Care Manager Corporate Marketing Name Role Phone Nicolas Greer MD Primary Care Provider [phone] Ariel Christiansen MD Unavailable [phone] Parmjit Vogel MD Unavailable [phone] Nicolas Greer MD Primary Care Provider [phone] Keny Saldaña APRN, MANNEQUIN MAKER Unavailable Cristian Dewitt MD Unavailable Ale Black RN Unavailable Unavailable Ale Spain RN Unavailable Unavailable Jerardo MCCANN MD, Courtney Unavailable [phone] Raghu Green MD Unavailable Warren Osborn MD Unavailable Ale Spain RN Unavailable Unavailable Chetan Do MD Unavailable Reason for Visit * Reason Comments Medication Refill Encounter Details Date Type Department Care Team (Late st Contact Info) Description 05/12/2020 Refill [facility] [address] [place] [address] Nicolas Greer MD [address] [place] [id number] Medication Refill Social History Tobacco Use Types [...] Industry Job Start Date Job End Date [employer] Not on file Not on file Not [...] hyperlipidemia type [facility] - Nicolas Waters MD 10 months ago Pulmonary emphysema, unspecified emphysema type (HCC) [facility] - Keny Crowder APN, MANNEQUIN MAKER 11 months ago Ptosis of both eyelids [facility] - Family [facility] - Keny Crowder APN, MANNEQUIN MAKER 1 year ago Hypothyroidism, unspecified type [facility] Nicolas Waters MD Upcoming Appointments Future Appointments In 3 weeks Nicolas Greer MD [facility] MACHINE STRIPPER CUTTER - Recent and Past Visits Recent Visits Date Type Provider Dept 03/11/20 Office Visit Nicolas Greer MD [facility] 10/14/19 Office Visit Nicolas Greer MD [facility] 07/14/19 Office Visit Keny Saldaña APN, MARY [facility] 05/22/19 Telemedicine Keny Saldaña APN, MARY [facility] 02/12/19 Office Visit Nicolas Greer MD [...] obstructive pulmonary disease, unspecified COPD type (HCC) [facility] Nicolas Esquivel MD 7 months ago Hyperlipidemia, unspecified hyperlipidemia type [facility] Nicolas Waters MD 10 months ago Pulmonary emphysema, unspecified emphysema type (HCC) [facility] Keny Crowder APN, MANNEQUIN MAKER 11 months ago Ptosis of both eyelids [facility] Keny Esteves APN, MANNEQUIN MAKER 1 year ago Hypothyroidism, unspecified type [facility] Nicolas Waters MD Upcoming Appointments Future Appointments In 3 weeks Nicolas Greer MD [facility] MACHINE STRIPPER CUTTER - Recent and Past Visits Recent Visits Date Type Provider Dept 03/11/20 Office Visit Nicolas Greer MD [facility] 10/14/19 Office Visit Nicolas Greer MD [facility] 07/14/19 Office Visit Keny Saldaña APN, MARY [facility] 05/22/19 Telemedicine Keny Saldaña APN, MARY [facility] 02/12/19 Office Visit [facility] Showing recent visits within past 460 [...] st Contact Info) Description 02/17/2025 1:00 PM CHIEF DEPUTY Office Visit [facility] Medical [facility] - Family Medicine - [place] [address] [place] [address] Nicolas Greer MD #[address] [address] 03/23/2025 2:00 PM CHIEF DEPUTY Office Visit [facility] Medical [facility] - Pulmonology & Sleep Medicine [facility] [address] [place] [address] Raghu Green MD [address] [place] [address] documented as of this encounter Visit Diagnoses Diagnosis Pulmonary emphysema, unspecified emphysema type (HCC) documented in this encounter Additional Health Concerns Infection Onset Date Last Indicated Resolved Time COVID - 19 09/02/2021 09/02/2021 09/03/2021 2:05 PM CDT COVID - 12/24/2021 12/24/2021 12/26/2021 8:07 AM CHIEF DEPUTY Respiratory Rule Out - RPA 12/24/2021 12/24/2021 1 02/24/2021 4:41 PM CHIEF DEPUTY Influenza 12/24/2021 12/24/2021 12/31/2021 12:1 6 AM CHIEF DEPUTY Assessment Noted Time PHQ-9 Depression Total Score: 0 02/12/19 10:45 AM CHIEF DEPUTY documented as of this encounter Care Teams Manager Corporate Marketing Relationship Specialty Start Date End Date Nicolas Greer MD [address] [address] PCP - General Family Medicine 12/22/14 09/07/21 Nicolas Greer MD #[address] [address] PCP - General Family Medicine 09/08/21 Ariel Christiansen MD #[address] [address] Consulting Physician Cardiovascular Disease - Cardiology 07/19/16 [place] [id number] [address] Technical Healthcare Consultant Pulmonary Disease 06/18/20 Keny Saldaña APRN, MANNEQUIN MAKER #[address] [address] Nurse Practitioner Advanced Practice Nurse 09/08/21 Cristian Dewitt MD #[address] [address] Consulting Physician Cardiovascular Disease - Cardiology 10/06/21 02/07/24 Ale Spain RN [place] Construction Tech 03/15/22 02/12/23 Ale Spain RN [place] Nurse Construction Tech 03/15/22 02/13/23 Yamel Kurtz III, MD #[address] [place] [address] Consulting Physician Urology 09/11/22 Raghu Green MD #2 [place] [address] Consulting Physician Pulmonary Disease 01/04/22 Warren Osborn MD #[address] [address] Consulting Physician Colon and Rectal Surgery 05/21/23 Ale Spain RN [place] Nurse Construction Tech 09/05/23 09/04/24 Chetan Do MD #[address] [address] Consulting Physician Endocrinology 01/23/24 documented as of this encounter
--- OUTSIDE RECORDS SUMMARY | 2024-09-29 13:37 | XMS_ITS | Encounter Summary ---
Author Organization [facility] Address [address] [place] [address] Phone Care Team Providers Care Leguillon Debeader Name Role Phone Nicolas Greer MD Primary Care Provider [phone] Ariel Christiansen MD Unavailable [phone] Parmjit Vogel MD Unavailable [phone] Nicolas Greer MD Primary Care Provider [phone] Keny Saldaña APRN, DIRECTOR OF NEUROLOGY Unavailable Cristian Dewitt MD Unavailable Ale Black RN Unavailable Unavailable Ale Spain RN Unavailable Unavailable Jerardo MCCANN MD, Courtney Unavailable [phone] Raghu Green MD Unavailable Warren Osborn MD Unavailable Ale Spain RN Unavailable Unavailable Chetan Do MD Unavailable Reason for Visit * Reason Comments Medication Refill Encounter Details Date Type Department Care Team (Late st Contact Info) Description 04/15/2020 Refill [facility] #[address] [place] [address] Nicolas Greer MD [address] [place] [address] Medication Refill Social History Tobacco Use Types [...] Industry Job Start Date Job End Date [employer] Not on file Not on file Not [...] type (HCC) [facility] - Nicolas Waters MD 6 months ago Hyperlipidemia, unspecified hyperlipidemia type [facility] - Family [facility] - Nicolas Waters MD 9 months ago Pulmonary emphysema, unspecified emphysema type (HCC) [facility] - Family [facility] - Keny Crowder APN, DIRECTOR OF NEUROLOGY 10 months ago Ptosis of both eyelids [facility] - Family [facility] - Keny Crowder APN, DIRECTOR OF NEUROLOGY 1 year ago Hypothyroidism, unspecified type [facility] [place] [facility] Upcoming Appointments Future Appointments In 1 month Nicolas Greer MD [facility] WAREDRESSER - Recent and Past Visits Recent Visits Date Type Provider Dept 03/11/20 Office Visit Nicolas Greer MD [facility] 10/14/19 Office Visit Nicolas Greer MD [facility] 07/14/19 Office Visit Keny Saldaña APN, MARY [facility] 05/22/19 Telemedicine Keny Saldaña APN, DIRECTOR OF NEUROLOGY [facility] [place] 02/12/19 Office Visit Nicolas Greer MD [facility] Showing recent visits within past 460 days with a meds authorizing provider and meeting all other requirements Future Appointments Date Type Provider Dept 06/08/20 Appointment Nicolas Greer MD [facility] Showing future appointments within next 90 days with a meds authorizing provider and meeting all other requirements WORKER documented in this encounter Plan of Treatment Upcoming Encounters Date Type Department Care Team (Late st Contact Info) Description 02/17/2025 1:00 PM BARN WORKER Office Visit [facility] [place] [address] [place] [address] Nicolas Greer MD #[address] [address] 03/23/2025 2:00 PM BARN WORKER Office Visit [facility] - Pulmonology & Sleep Medicine [facility] #2 [place] [address] Raghu Green MD [address] [place] [address] documented as of this encounter Visit Diagnoses Diagnosis Pulmonary emphysema, unspecified emphysema type (HCC) documented in this encounter Additional Health Concerns Infection Onset Date Last Indicated Resolved Time COVID - 19 09/02/2021 09/02/2021 09/03/2021 2:05 PM CDT COVID - 19 12/24/2021 12/24/2021 12/26/2021 8:07 AM BARN WORKER Respiratory Rule Out - RPA 12/24/2021 12/24/2021 1 02/24/2021 4:41 PM BARN WORKER Influenza 12/24/2021 12/24/2021 12/31/2021 12:1 6 AM BARN WORKER Assessment Noted Time PHQ-9 Depression Total Score: 0 02/12/19 10:45 AM BARN WORKER documented as of this encounter Care Teams Leguillon Debeader Relationship Specialty Start Date End Date Nicolas Greer MD [address] [address] PCP - General Family Medicine 12/22/14 09/07/21 Nicolas Greer MD #[address] [address] PCP - General Family Medicine 09/08/21 Ariel Christiansen MD #[address] [address] Consulting Physician Cardiovascular Disease - Cardiology 07/19/16 [place] [address] [address] Wireless Sales Associate Pulmonary Disease 06/18/20 Keny Saldaña APRN, DIRECTOR OF NEUROLOGY #[address] [address] Nurse Practitioner Advanced Practice Nurse 09/08/21 Cristian Dewitt MD #[address] [address] Consulting Physician Cardiovascular Disease - Cardiology 10/06/21 02/07/24 Ale Spain, RN [place] Truck Spotter 03/15/22 02/12/23 Ale Spain, RN [place] Nurse Truck Spotter 03/15/22 02/13/23 Yamel Kurtz III, MD #2 [place] [address] Consulting Physician Urology 09/11/22 Raghu Green MD #2 [place] [address] Consulting Physician Pulmonary Disease 01/04/22 Warren Osborn MD #[address] [address] Consulting Physician Colon and Rectal Surgery 05/21/23 Ale Spain, RN [place] Nurse Truck Spotter 09/05/23 09/04/24 Chetan Do MD #[address] [phone] Consulting Physician Endocrinology 01/23/24 documented as of this encounter
--- OUTSIDE RECORDS SUMMARY | 2024-09-29 13:37 | XMS_ITS | Encounter Summary ---
Author Organization [facility] Address [address] [place] [address] Phone Care Team Providers Care Ethylbenzene Converter Operator Name Role Phone Nicolas Greer MD Primary Care Provider [phone] Ariel Christiansen MD Unavailable [phone] Parmjit Vogel MD Unavailable [phone] Nicolas Greer MD Primary Care Provider [phone] Keny Saldaña APRN, CARGO INSPECTOR Unavailable Cristian Dewitt MD Unavailable Ale Black RN Unavailable Unavailable Ale Spain RN Unavailable Unavailable Jerardo MCCANN MD, Courtney Unavailable [phone] Raghu Green MD Unavailable Warren Osborn MD Unavailable Ale Spain RN Unavailable Unavailable Chetan Do MD Unavailable Reason for Visit * Reason Comments Medication Refill Encounter Details Date Type Department Care Team (Late st Contact Info) Description 11/10/2019 Refill [facility] #2 [place] [address] Keny Saldaña APRN, MARY [address] [place] [address] Medication Refill Social History Tobacco Use Types [...] Job Start Date Job End Date Retired [email or web address] Not on file Not on file Not [...] 4 weeks ago Hyperlipidemia, unspecified hyperlipidemia type [facility] - [facility] - Nicolas Waters MD 4 months ago Pulmonary emphysema, unspecified emphysema type (HCC) [facility] - Family Medicine - Keny Crowder APN, CARGO INSPECTOR 5 months ago Ptosis of both eyelids [facility] - Family Medicine - Keny Crowder APN, MARY 9 months ago Hypothyroidism, unspecified type [facility] - Family Medicine - Nicolas Waters MD 1 year ago Non-insulin dependent type 2 diabetes mellitus (HCC) [facility] Nicolas Waters MD Upcoming Appointments ENVIRONMENTAL ADVISER - Recent and Past Visits Recent Visits Date Type Provider Dept 10/14/19 Office Visit Nicoals Greer MD [facility] 07/14/19 Office Visit Keny Saldaña APN, MARY [facility] 05/22/19 Telemedicine Keny Saldaña APN, MARY [facility] Office Visit Nicolas Greer MD [facility] 11/05/18 Office Visit Nicolas Greer MD [facility] Showing recent visits within past 460 [...] st Contact Info) Description 02/17/2025 1:00 PM SWEEPER BRUSH MAKER MACHINE Office Visit [facility] #2 [place] [address] Nicolas Greer MD #[address] [address] 03/23/2025 2:00 PM SWEEPER BRUSH MAKER MACHINE Office Visit [facility] - Pulmonology & Sleep Medicine [facility] #2 [place] [address] Raghu Green MD #2 [place] [address] documented as of this encounter Visit Diagnoses Diagnosis Pulmonary emphysema, unspecified emphysema type (HCC) documented in this encounter Additional Health Concerns Infection Onset Date Last Indicated Resolved Time COVID - 19 03/11/2020 03/11/2020 03/31/2020 12:1 8 AM SWEEPER BRUSH MAKER MACHINE COVID - 19 09/02/2021 09/02/2021 09/03/2021 2:05 PM CDT COVID - 19 12/24/2021 12/24/2021 12/26/2021 8:07 AM SWEEPER BRUSH MAKER MACHINE Respiratory Rule Out - RPA 12/24/2021 12/24/2021 1 02/24/2021 4:41 PM SWEEPER BRUSH MAKER MACHINE Influenza 12/24/2021 12/24/2021 12/31/2021 12:1 6 AM SWEEPER BRUSH MAKER MACHINE Assessment Noted Time PHQ-9 Depression Total Score: 0 02/12/19 10:45 AM SWEEPER BRUSH MAKER MACHINE documented as of this encounter Care Teams Ethylbenzene Converter Operator Relationship Specialty Start Date End Date Nicolas Greer MD #[address] [address] PCP - General Family Medicine 12/22/14 09/07/21 Nicolas Greer MD #[address] [address] PCP - General Family Medicine 09/08/21 Ariel Christiansen MD #[address] [address] Consulting Physician Cardiovascular Disease - Cardiology 07/19/16 [place] [address] [address] Reimbursement Consultant Pulmonary Disease 06/18/20 Keny Saldaña APRN, CARGO INSPECTOR #[address] [address] Nurse Practitioner Advanced Practice Nurse 09/08/21 Cristian Dewitt MD #[address] [address] Consulting Physician Cardiovascular Disease - Cardiology 10/06/21 02/07/24 Ale Spain, RN [place] Track Repair Laborer 03/15/22 02/12/23 Ale Spain, RN [place] Nurse Track Repair Laborer 03/15/22 02/13/23 Yamel Kurtz III, MD #2 [place] [address] Consulting Physician Urology 09/11/22 Raghu Green MD #2 [place] [address] Consulting Physician Pulmonary Disease 01/04/22 Warren Osborn MD #[address] [address] Consulting Physician Colon and Rectal Surgery 05/21/23 Ale Spain, WALDO [place] Nurse Track Repair Laborer 09/05/23 09/04/24 Chetan Do MD #[address] [address] Consulting Physician Endocrinology 01/23/24 documented as of this encounter
--- OUTSIDE RECORDS SUMMARY | 2024-09-29 13:37 | XMS_ITS | Encounter Summary ---
Author Organization [facility] Address [address] [place] [address] Phone Care Team Providers Care Gold Leaf Gilder Name Role Phone Ariel Christiansen MD Unavailable [phone] Parmjit Vogel MD Unavailable [phone] Nicolas Greer MD Primary Care Provider [phone] Keny Saldaña APRN, MARY Unavailable Cristian Dewitt MD Unavailable Kate Kurtz III, MD, Courtney Unavailable [phone] Raghu Green MD Unavailable Warren Osborn MD Unavailable Ale Spain RN Unavailable Unavailable Chetan Do MD Unavailable Reason for Visit * Reason Comments Medication Refill Encounter Details Date Type Department Care Team (Late st Contact Info) Description 12/16/2023 Refill [facility] - Family Medicine - [place] #2 [place] [address] Nicolas Greer MD #[address] [address] Medication Refill Social History Tobacco Use Types Packs/Day Years Used Date Smoking Tobacco: Former Cigarettes 0.5 50 1 957 - 2007 Smokeless Tobacco: Never Alcohol Use Standard Drinks/Week Comments No 0 (1 standard drink = 0.6 oz pur e alcohol) [facility] Utilities Answer Date Recorded In the past 12 months has e electric, gas, oil, or water company threatened to shut off services in your home? No 10/25/2023 Social Connection and Isolation Panel Answer Date Recorded In a typical week, how many times do you talk on the phone with family, friends, or neighbors? More than three times a week 10/25/2023 How often do you get togethe r with friends or relatives? Twice a week 10/25/2023 How often do you attend chur ch or buddhist services? Never 10/25/2023 Do you belong to any clubs o r organizations such as druze groups, unions, fraternal or athletic groups, or [...] Total Score - Questions 1-9 2 08/07 [facility] [place] of Occupat ional Health - Occupational Stress [...] place to sleep or slept in a fdc (including now)? Patient declined 04/04/2023 Housing Stability [...] time in the past 12 m [facility], were you homeless or living in a fdc (including now)? No 10/25/2023 Education Answer Date [...] Industry Job Start Date Job End Date [employer] Not on file Not on file Not on file documented as of this encounter Plan of Treatment Upcoming Encounters Date Type Department Care Team (Late st Contact Info) Description 02/17/2025 1:00 PM CULVERT INSTALLER Office Visit [facility] Family [facility] #[address] [place] [address] Nicolas Greer MD #[address] [address] 03/23/2025 2:00 PM CULVERT INSTALLER Office Visit [facility] - Pulmonology & Sleep Medicine [facility] #2 [place] [address] Raghu Green MD #2 [place] [address] documented as of this encounter Visit Diagnoses Diagnosis Mixed stress and urge urinary incontinence Mixed incontinence urge and stress (male)(female) documented in this encounter Additional Health Concerns Assessment Noted Time PHQ-9 Depression Total Score: 2 09/05/19 24 1:00 PM CDT documented as of this encounter Care Teams Gold Leaf Gilder Relationship Specialty Start Date End Date Nicolas Greer MD #[address] [address] PCP - General Family Medicine 09/08/21 Ariel Christiansen MD Consulting Physician Cardiovascular Disease - Cardiology 07/19/16 [place] [address] [address] Piano Refinisher Pulmonary Disease 06/18/20 Keny Saldaña, ASE CERTIFIED TECHNICIAN, DRAWBENCH OPERATOR #[address] [address] Nurse Practitioner Advanced Practice Nurse 09/08/21 Cristian Dewitt MD #[address] [address] Consulting Physician Cardiovascular Disease - Cardiology 10/06/21 02/07/24 Yamel Kurtz III, MD #2 [place] [address] Consulting Physician Urology 09/11/22 Raghu Green MD #2 [place] [address] Consulting Physician Pulmonary Disease 01/04/22 Warren Osborn MD #[address] [address] Consulting Physician Colon and Rectal Surgery 05/21/23 Ale Spain, RN [place] Nurse Game Warden 09/05/23 09/04/24 Chetan Do MD #[address] [phone] Consulting Physician Endocrinology 01/23/24 documented as of this encounter
--- OUTSIDE RECORDS SUMMARY | 2024-09-29 13:37 | XMS_ITS | Encounter Summary ---
Author Organization [facility] Address [address] [place] [place] [address] Phone Care Team Providers Care Snow Groomer Name Role Phone Ariel Christiansen MD Unavailable [phone] Parmjit Vogel MD Unavailable [phone] Nicolas Greer MD Primary Care Provider [phone] Keny Saldaña APRN, OPERATIONS BOARDMAN Unavailable Cristian Dewitt MD Unavailable Ale Black RN Unavailable Unavailable Ale Spain RN Unavailable Unavailable Jerardo MCCANN MD, Courtney Unavailable [phone] Raghu Green MD Unavailable Warren Osborn MD Unavailable Ale Spain RN Unavailable Unavailable Chetan Do MD Unavailable Encounter Details Date Type Department Care Team (Late st Contact Info) Description 02/15/2022 Lab Requisition [facility] Laboratory Services 1 [place] [address] Nicolas Greer MD #[address] [address] Anemia, unspecified Social History Tobacco Use Types [...] Job Start Date Job End Date Retired [employer] Not on file Not on file Not on file COVID-19 Exposure Response Date Recorded In the last 10 days, have yo u been in contact with someone who was confirmed or suspected to have Coronavirus/COVID-19? No / Unsure 02/15/2022 10:32 AM CONDUIT WORKER documented as of this encounter Plan of Treatment Upcoming Encounters Date Type Department Care Team (Late st Contact Info) Description 02/17/2025 1:00 PM CONDUIT WORKER [facility] - [place] #2 [place] [address] Nicolsa Greer MD #[address] [address] 03/23/2025 2:00 PM CONDUIT WORKER [facility] #2 [place] [address] Raghu Green MD #2 [place] [address] documented as of this encounter Procedures Procedure Name Priority Date/Time Associated Diagnosis Comments VITAMIN B12 Routine 12/07/2022 11:02 AM CDT Anemia, unspecified THYROID STIMULATING HORMONE (TSH) Routine 02/15/2022 11:02 AM CONDUIT WORKER Anemia, unspecified FERRITIN Routine 02/15/2022 11:02 AM CONDUIT WORKER Anemia, unspecified BASIC METABOLIC PANEL W/ CALCIUM TOTAL Routine 02/15/2022 11:02 AM CONDUIT WORKER Anemia, unspecified documented in this encounter Results * VITAMIN B12 (12/07/2022 11:02 AM CDT) VITAMIN B12 760 243 - 894 pg/mL 02/15/2022 1:18 PM CONDUIT WORKER [facility] Blood No Phlebotomy Charged / Unknown 12/07/2022 11:02 AM CDT 02/15/2022 12:30 PM CONDUIT WORKER Nicolas Greer MD CHEMISTRY ORDERABLES Jacqueline l Result [facility] #1 [place] [address] * (ABNORMAL) FERRITIN (02/15/2022 11:02 AM CONDUIT WORKER) FERRITIN 348(H) 13 - 150 ng/mL 02/15/2022 1:11 PM CONDUIT WORKER [facility] Blood No Phlebotomy Charged / Unknown 02/15/2022 11:02 AM CONDUIT WORKER 02/15/2022 12:30 PM CONDUIT WORKER Nicolas Greer MD CHEMISTRY ORDERABLES Jacqueline l Result [facility] #1 [place] [address] * THYROID STIMULATING HORMONE (TSH) (02/15/2022 11:02 AM CONDUIT WORKER) TSH 1.600 0.270 - 4.200 mIU/L 02/15/2022 1:11 PM [facility] Blood No Phlebotomy Charged / Unknown 02/15/2022 11:02 AM CONDUIT WORKER 02/15/2022 12:30 PM CONDUIT WORKER Nicolas Greer MD CHEMISTRY ORDERABLES Jacqueline l Result [facility] #1 [place] [address] * (ABNORMAL) BASIC METABOLIC PANEL W/ CALCIUM TOTAL (02/15/2022 11:02 AM CONDUIT WORKER) SODIUM 139 136 - 144 mmol/L 02/15/2022 1:11 PM [facility] POTASSIUM 4.2 3.5 - 5.1 mmol/L 02/15/2022 1:11 PM [facility] CHLORIDE 94(L) 100 - 110 mmol/L 02/15/2022 1:11 PM [facility] CO2, VENOUS 36(H) 22 - 32 mmol/L 02/15/2022 1:11 PM [facility] ANION GAP 13.2 8.0 - 20.0 mmol/L 02/15/2022 1:11 PM [facility] GLUCOSE 152(H) 70 - 99 mg/dL 02/15/2022 1:11 PM [facility] BUN 14 8 - 23 mg/dL 02/15/2022 1:11 PM [facility] CREATININE, BLOOD 0.88 0.60 - 1.10 mg/dL 02/15/2022 1:11 PM [facility] BUN/CREATININE RATIO 16 12 - 20 ratio 02/15/2022 1:11 PM [facility] CALCIUM 11.7(H) 8.9 - 10.3 mg/dL 02/15/2022 1:11 PM [facility] GFR, ESTIMATED >60 >=60 02/15/2022 1:11 PM CONDUIT WORKER [facility] Comment: Creatinine Clearance is the preferred criteria for selecting drug dose adjustments in renally impaired patients. The GFR is provided as additional pertinent clinical information. GFR is reported in mL/min/1.73 sq m. Calculation based on the Chronic Kidney Disease Epidemiology Collaboration (CKD- EPI) equation refit without adjustment for race. GFR, EST. >60 >=60 023 1:11 PM CONDUIT WORKER [facility] GFR, EST. NONAFRICAN >60 >=60 02/15/2022 1:11 PM CONDUIT WORKER [facility] Blood No Phlebotomy Charged / Unknown 02/15/2022 11:02 AM CONDUIT WORKER 02/15/2022 12:30 PM CONDUIT WORKER Nicolas Greer MD CHEMISTRY ORDERABLES Jacqueline l Result [facility] #1 [place] [address] documented in this encounter Visit Diagnoses Diagnosis Anemia, unspecified documented in this encounter Additional Health Concerns Assessment Noted Time PHQ-9 Depression Total Score: 0 02/12/19 20 10:45 AM CONDUIT WORKER documented as of this encounter Care Teams Snow Groomer Relationship Specialty Start Date End Date Nicolas Greer MD #[address] [address] PCP - General Family Medicine 09/08/21 Ariel Christiansen MD Consulting Physician Cardiovascular Disease - Cardiology 07/19/16 [place] [address] [address] Rib Trim Separator Pulmonary Disease 06/18/20 Keny Saldaña, FIRE SAFETY INSPECTOR, OPERATIONS BOARDMAN #[address] [address] Nurse Practitioner Advanced Practice Nurse 09/08/21 Cristian Dewitt MD #[address] [address] Consulting Physician Cardiovascular Disease - Cardiology 10/06/21 02/07/24 Ale Spain, RN [place] Respiratory Practitioner 03/15/22 02/12/23 Ale Spain, RN [place] Nurse Respiratory Practitioner 03/15/22 02/13/23 Yamel Kurtz III, MD #2 [place] [address] Consulting Physician Urology 09/11/22 Raghu Green MD #2 [place] [address] Consulting Physician Pulmonary Disease 01/04/22 Warren Osborn MD #[address] [address] Consulting Physician Colon and Rectal Surgery 05/21/23 Ale Spain, RN [place] Nurse Respiratory Practitioner 09/05/23 09/04/24 Chetan Do MD #[address] [phone] Consulting Physician Endocrinology 01/23/24 documented as of this encounter
--- OUTSIDE RECORDS SUMMARY | 2024-09-29 13:37 | XMS_ITS | Encounter Summary ---
Author Organization [facility] Address [address] [place] [address] Phone Care Team Providers Care Stock Chaser Name Role Phone Ariel Christiansen MD Unavailable [phone] Parmjit Vogel MD Unavailable [phone] Nicolas Greer MD Primary Care Provider [phone] Keny Saldaña APRN, OPERATIONS VICE PRESIDENT Unavailable Cristian Dewitt MD Unavailable Ale Black RN Unavailable Unavailable Ale Spain RN Unavailable Unavailable Jerardo MCCANN MD, Courtney Unavailable [phone] Raghu Green MD Unavailable Warren Osborn MD Unavailable Ale Spain RN Unavailable Unavailable Chetan Do MD Unavailable Encounter Details Date Type Department Care Team (Late st Contact Info) Description 02/15/2022 Lab Requisition [facility] Laboratory Services 1 [place] [address] Nicolas Greer MD #[address] [address] Anemia, unspecified Social History Tobacco Use Types [...] Job Start Date Job End Date Retired [employer] Not on file Not on file Not on file COVID-19 Exposure Response Date Recorded In the last 10 days, have yo u been in contact with someone who was confirmed or suspected to have Coronavirus/COVID-19? No / Unsure 02/15/2022 10:32 AM RESEARCH CHIEF ENGINEER documented as of this encounter Plan of Treatment Upcoming Encounters Date Type Department Care Team (Late st Contact Info) Description 02/17/2025 1:00 PM RESEARCH CHIEF ENGINEER Office Visit [facility] - [place] #2 [place] [address] Nicolas Greer MD #[address] [address] 03/23/2025 2:00 PM RESEARCH CHIEF ENGINEER [facility] #2 [place] [address] Raghu Green MD #2 [place] [address] documented as of this encounter Procedures Procedure Name Priority Date/Time Associated Diagnosis Comments THYROXINE (T4) FREE Routine 02/15/2022 1 1:02 AM RESEARCH CHIEF ENGINEER Anemia, unspecified IRON (FE) Routine 02/15/2022 11:02 AM RESEARCH CHIEF ENGINEER Anemia, unspecified IONIZED CALCIUM (ICA) Routine 02/15/2022 11:02 AM RESEARCH CHIEF ENGINEER Anemia, unspecified documented in this encounter Results * THYROXINE (T4) FREE (02/15/2022 11:02 AM RESEARCH CHIEF ENGINEER) T4 FREE 1.4 0.9 - 1.7 ng/dL 02/15/2022 1:10 PM RESEARCH CHIEF ENGINEER [facility] Blood No Phlebotomy Charged / Unknown 02/15/2022 11:02 AM RESEARCH CHIEF ENGINEER 02/15/2022 12:34 PM RESEARCH CHIEF ENGINEER Nicolas Greer MD CHEMISTRY ORDERABLES Jacqueline l Result Performing Organization Address City/[facility]/ZIP Co de Phone Number [facility] #1 [place] [address] * (ABNORMAL) IRON (FE) (02/15/2022 11:02 AM RESEARCH CHIEF ENGINEER) IRON 146.88(H) 37 - 145 mcg/dL 02/15/2022 1:03 PM RESEARCH CHIEF ENGINEER [facility] Blood No Phlebotomy Charged / Unknown 02/15/2022 11:02 AM RESEARCH CHIEF ENGINEER 02/15/2022 12:34 PM RESEARCH CHIEF ENGINEER Nicolas Greer MD CHEMISTRY ORDERABLES Jacqueline l Result [facility] #1 [place] [address] * (ABNORMAL) IONIZED CALCIUM (ICA) (02/15/2022 11:02 AM RESEARCH CHIEF ENGINEER) CALCIUM IONIZED 1.35(H) 1.19 - 1.31 mmol/L 02/15/2022 12:52 PM RESEARCH CHIEF ENGINEER [facility] Blood No Phlebotomy Charged / Unknown 02/15/2022 11:02 AM RESEARCH CHIEF ENGINEER 02/15/2022 12:34 PM RESEARCH CHIEF ENGINEER Nicolas Greer MD CHEMISTRY ORDERABLES Jacqueline l Result [facility] #1 [place] [address] documented in this encounter Visit Diagnoses Diagnosis Anemia, unspecified documented in this encounter Additional Health Concerns Assessment Noted Time PHQ-9 Depression Total Score: 0 02/12/19 20 10:45 AM RESEARCH CHIEF ENGINEER documented as of this encounter Care Teams Stock Chaser Relationship Specialty Start Date End Date Nicolas Greer MD #[address] [address] PCP - General Family Medicine 09/08/21 Ariel Christiansen MD Consulting Physician Cardiovascular Disease - Cardiology 07/19/16 [place] [address] [address] Sanitary Aide Pulmonary Disease 06/18/20 Keny Saldaña, WIRELESS ENGINEER, OPERATIONS VICE PRESIDENT #[address] [address] Nurse Practitioner Advanced Practice Nurse 09/08/21 Cristian Dewitt MD #[address] [address] Consulting Physician Cardiovascular Disease - Cardiology 10/06/21 02/07/24 Ale Spain, [place] Softball Coach 03/15/22 02/12/23 Ale Spain RN [place] Nurse Softball Coach 03/15/22 02/13/23 Yamel Kurtz III, MD #2 [place] [address] Consulting Physician Urology 09/11/22 Raghu Green MD #2 [place] [address] Consulting Physician Pulmonary Disease 01/04/22 Warren Osborn MD #[address] [address] Consulting Physician Colon and Rectal Surgery 05/21/23 Ale Spain, RN [place] Nurse Softball Coach 09/05/23 09/04/24 Chetan Do MD #[address] [phone] Consulting Physician Endocrinology 01/23/24 documented as of this encounter
--- OUTSIDE RECORDS SUMMARY | 2024-09-29 13:37 | XMS_ITS | Encounter Summary ---
Author Organization [facility] Address [address] [place] [address] [place] [address] Phone Care Team Providers Care Facilities Maintenance Assistant Name Role Phone Ariel Christiansen MD Unavailable [phone] Parmjit Vogel MD Unavailable [phone] Nicolas Greer MD Primary Care Provider [phone] Keny Saldaña APRN, MARY Unavailable Cristian Dewitt MD Unavailable Kate Kurtz III, MD, Courtney Unavailable [phone] Raghu Green MD Unavailable Warren Osborn MD Unavailable Ale Spain RN Unavailable Unavailable Chetan Do MD Unavailable Reason for Visit * Reason Comments Medication Refill Encounter Details Date Type Department Care Team (Late st Contact Info) Description 07/05/2023 Refill [facility] - [place] #2 [place] [address] Nicolas Greer MD #[address] [address] Medication Refill Social History Tobacco Use Types Packs/Day Years Used Date Smoking Tobacco: Former Cigarettes 0.5 50 1 957 - 2007 Smokeless Tobacco: Never Alcohol Use Standard Drinks/Week Comments No 0 (1 standard drink = 0.6 oz pur e alcohol) [facility] Utilities Answer Date Recorded In the [...] declined 04/04/2023 How often do you attend adventist or jew serv ices? Patient declined 04/04/2023 Do you belong to any clubs o r organizations such as adventist groups, unions, fraternal or athletic groups, or [...] Total Score - Questions 1-9 0 09/05 [facility] [place] of Occupat ional Health - Occupational Stress [...] a detention (including now)? Patient declined 04/04/2023 Education Answer [...] Job Start Date Job End Date Retired [employer] Not on file Not on file Not [...] st Contact Info) Description 02/17/2025 1:00 PM NEUROSURGICAL NURSE Office Visit [facility] - Family Medicine - [place] #2 [place] [address] Nicolas Greer MD #[address] [address] 03/23/2025 2:00 PM NEUROSURGICAL NURSE Office Visit [facility] - Pulmonology & [facility] Medicine [facility] #2 [place] [address] Raghu Green MD #2 [place] [address] documented as of this encounter Visit Diagnoses Diagnosis Controlled type 2 diabetes mellitus without complication documented in this encounter Additional Health Concerns Assessment Noted Time PHQ-9 Depression Total Score: 0 09/22/19 23 1:48 PM CDT documented as of this encounter Care Teams Facilities Maintenance Assistant Relationship Specialty Start Date End Date Nicolas Greer MD #[address] [address] PCP - General Family Medicine 09/08/21 Ariel Christiansen MD Consulting Physician Cardiovascular Disease - Cardiology 07/19/[address] [place] [address] [facility] [address] [place] [address] Butter Fat Tester Pulmonary Disease 06/18/20 Keny Saldaña PATTERNMAKER GRADER, INTERVENTIONAL PHYSIATRIST #[address] [address] Nurse Practitioner Advanced Practice Nurse 09/08/21 Cristian Dewitt MD #[address] [address] Consulting Physician Cardiovascular Disease - Cardiology 10/06/21 02/07/24 Yamel Kurtz III, MD #2 [place] [address] Consulting Physician Urology 09/11/22 Raghu Green MD #2 [place] [address] Consulting Physician Pulmonary Disease 01/04/22 Warren Osborn MD #[address] [address] Consulting Physician Colon and Rectal Surgery 05/21/23 Ale Spain, RN [place] Nurse Plant Etiologist 09/05/23 09/04/24 Chetan Do MD #[address] [address] Consulting Physician Endocrinology 01/23/24 documented as of this encounter
--- OUTSIDE RECORDS SUMMARY | 2024-09-29 13:37 | XMS_ITS | Encounter Summary ---
Author Organization [facility] Address [address] [place] [address] Phone Care Team Providers Care Unix Engineer Name Role Phone Nicolas Greer MD Primary Care Provider [phone] Ariel Christiansen MD Unavailable [phone] Parmjit Vogel MD Unavailable [phone] Nicolas Greer MD Primary Care Provider [phone] Keny Saldaña APRN, DIRECTOR OF CUSTOMER ACQUISITION Unavailable Cristian Dewitt MD Unavailable Ale Black RN Unavailable Unavailable Ale Spain RN Unavailable Unavailable Jerardo MCCANN MD, Courtney Unavailable [phone] Raghu Green MD Unavailable Warren Osborn MD Unavailable Ale Spain RN Unavailable Unavailable Chetan Do MD Unavailable Reason for Visit * Reason Onset Date Comments Follow-up 09/02/2021 Encounter Details Date Type Department Care Team (Late st Contact Info) Description 09/02/2021 [facility] [address] [place] [address] Nicolas Greer MD [address] [place] [address] Follow-up Social History Tobacco Use Types Packs/Day [...] Job Start Date Job End Date Retired [employer] Not on file Not on file Not [...] to serve as face to face to Medicare requirement. They submitted this and it [...] st Contact Info) Description 02/17/2025 1:00 PM ANNUAL GREENHOUSE MANAGER Office Visit [facility] Medical [facility] - Family Medicine - [place] #2 [place] [address] Nicolas Greer MD #[address] [address] 03/23/2025 2:00 PM ANNUAL GREENHOUSE MANAGER Office Visit [facility] - Pulmonology & Sleep Medicine [facility] #2 [place] [address] Raghu Green MD #2 [place] [address] documented as of this encounter Visit Diagnoses Not on filedocumented in this encounter Additional Health Concerns Infection Onset Date Last Indicated Resolved Time COVID - 19 09/02/2021 09/02/2021 09/03/2021 2:05 PM CDT COVID - 19 12/24/2021 12/24/2021 12/26/2021 8:07 AM ANNUAL GREENHOUSE MANAGER Respiratory Rule Out - RPA 12/24/2021 12/24/2021 1 02/24/2021 4:41 PM ANNUAL GREENHOUSE MANAGER Influenza 12/24/2021 12/24/2021 12/31/2021 12:1 6 AM ANNUAL GREENHOUSE MANAGER Assessment Noted Time PHQ-9 Depression Total Score: 0 02/12/19 20 10:45 AM ANNUAL GREENHOUSE MANAGER documented as of this encounter Care Teams Unix Engineer Relationship Specialty Start Date End Date Nicolas Greer MD #[address] [address] PCP - General Family Medicine 12/22/14 09/07/21 Nicolas Greer MD #[address] [address] PCP - General Family Medicine 09/08/21 Ariel Christiansen MD #[address] [address] Consulting Physician Cardiovascular Disease - Cardiology 07/19/16 [place] [address] [address] Telegraph Mechanic Pulmonary Disease 06/18/20 Keny Saldaña APRN, DIRECTOR OF CUSTOMER ACQUISITION #[address] [address] Nurse Practitioner Advanced Practice Nurse 09/08/21 Cristian Dewitt MD #[address] [address] Consulting Physician Cardiovascular Disease - Cardiology 10/06/21 02/07/24 Ale Spain, RN [place] Director Oncology 03/15/22 02/12/23 Ale Spain, RN [place] Nurse Director Oncology 03/15/22 02/13/23 Yamel Kurtz III, MD #2 [place] [address] Consulting Physician Urology 09/11/22 Raghu Green MD #2 [place] [address] Consulting Physician Pulmonary Disease 01/04/22 Warren Osborn MD #[address] [address] Consulting Physician Colon and Rectal Surgery 05/21/23 Ale Spain, RN [place] Nurse Director Oncology 09/05/23 09/04/24 Chetan Do MD #[address] [address] Consulting Physician Endocrinology 01/23/24 documented as of this encounter
--- OUTSIDE RECORDS SUMMARY | 2024-09-29 13:37 | XMS_ITS | Encounter Summary ---
Author Organization [facility] Address [address] [place] [address] [place] [address] Phone Care Team Providers Care Pattern Stamper Name Role Phone Nicolas Greer MD Primary Care Provider [phone] Ariel Christiansen MD Unavailable [phone] Parmjit Vogel MD Unavailable [phone] Nicolas Greer MD Primary Care Provider [phone] Keny Saldaña APRN, FUSE MAKER Unavailable Cristian Dewitt MD Unavailable Ale Black RN Unavailable Unavailable Ale Spain RN Unavailable Unavailable Jerardo MCCANN MD, Courtney Unavailable [phone] Raghu Green MD Unavailable Warren Osborn MD Unavailable Ale Spain RN Unavailable Unavailable Chetan Do MD Unavailable Reason for Visit * Reason Comments Medication Refill Encounter Details Date Type Department Care Team (Late st Contact Info) Description 08/26/2021 Refill [facility] #2 [place] [address] Nicolas Greer MD #[address] [place] [id number] Medication Refill Social History Tobacco Use Types [...] Job Start Date Job End Date Retired [employer] Not on file Not on file Not [...] Betancourt 07/21/21 Telemedicine Nicolas Greer MD [facility] [place] 04/28/21 Telemedicine Nicolas Greer MD [facility] [...] st Contact Info) Description 02/17/2025 1:00 PM MOSAIC WORKER Office Visit [facility] - Family Medicine - [place] #2 [place] [address] Nicolas Greer MD #[address] [address] 03/23/2025 2:00 PM MOSAIC WORKER Office Visit [facility] - Pulmonology & Sleep Medicine [facility] #2 [place] [address] Raghu Green MD #2 [place] [address] documented as of this encounter Visit Diagnoses Diagnosis Pulmonary emphysema, unspecified emphysema type (HCC) documented in this encounter Additional Health Concerns Infection Onset Date Last Indicated Resolved Time COVID - 19 09/02/2021 09/02/2021 09/03/2021 2:05 PM CDT COVID - 19 12/24/2021 12/24/2021 12/26/2021 8:07 AM MOSAIC WORKER Respiratory Rule Out - RPA 12/24/2021 12/24/2021 1 02/24/2021 4:41 PM MOSAIC WORKER Influenza 12/24/2021 12/24/2021 12/31/2021 12:1 6 AM MOSAIC WORKER Assessment Noted Time PHQ-9 Depression Total Score: 0 02/12/19 20 10:45 AM MOSAIC WORKER documented as of this encounter Care Teams Pattern Stamper Relationship Specialty Start Date End Date Nicolas Greer MD #[address] [address] PCP - General Family Medicine 12/22/14 09/07/21 Nicolas Greer MD #[address] [address] PCP - General Family Medicine 09/08/21 Ariel Christiansen MD #[address] [address] Consulting Physician Cardiovascular Disease - Cardiology 07/19/16 [place] [address] [facility] [address] [place] [address] High Pressure Boiler Operator Pulmonary Disease 06/18/20 Keny Saldaña APRN, FUSE MAKER #[address] [address] Nurse Practitioner Advanced Practice Nurse 09/08/21 Cristian Dewitt MD #[address] [address] Consulting Physician Cardiovascular Disease - Cardiology 10/06/21 02/07/24 Ale Spain, RN [place] Yoga Teacher 03/15/22 02/12/23 Ale Spain, RN [place] Nurse Yoga Teacher 03/15/22 02/13/23 Yamel Kurtz III, MD #2 [place] [address] Consulting Physician Urology 09/11/22 Raghu Green MD #2 [place] [address] Consulting Physician Pulmonary Disease 01/04/22 Warren Osborn MD #[address] [address] Consulting Physician Colon and Rectal Surgery 05/21/23 Ale Spain, RN [place] Nurse Yoga Teacher 09/05/23 09/04/24 Chetan Do MD #[address] [address] Consulting Physician Endocrinology 01/23/24 documented as of this encounter
--- OUTSIDE RECORDS SUMMARY | 2024-09-29 13:37 | XMS_ITS | Encounter Summary ---
Author Organization [facility] Address [address] [place] [address] Phone Care Team Providers Care Quick Technician Name Role Phone Ariel Christiansen MD Unavailable [phone] Parmjit Vogel MD Unavailable [phone] Nicolas Greer MD Primary Care Provider [phone] Keny Saldaña APRN, MARY Unavailable Cristian Dewitt MD Unavailable Kate Kurtz III, MD, Courtney Unavailable [phone] Raghu Green MD Unavailable Warren Osborn MD Unavailable Ale Spain RN Unavailable Unavailable Chetan Do MD Unavailable Reason for Visit * Reason Comments Medication Refill Encounter Details Date Type Department Care Team (Late st Contact Info) Description 07/20/2023 [facility]ill [facility] - [facility] Medicine - [place] [address]2 [place] [address] Nicolas Greer MD [address] [address] Medication Refill Social History Tobacco Use Types Packs/Day Years Used Date Smoking Tobacco: Former Cigarettes 0.5 50 1 957 - 2007 Smokeless Tobacco: Never Alcohol Use Standard Drinks/Week Comments No 0 (1 standard drink = 0.6 oz pur e alcohol) [facility] Utilities Answer Date Recorded In the [...] declined 07/17/2023 How often do you attend uatsdin or lutheran serv ices? Patient declined 07/17/2023 Do you [...] Total Score - Questions 1-9 0 09/05 [facility] of Occupat ional Health - Occupational Stress [...] any time in the past 12 m [facility], were you homeless or living in a long-term (including now)? No 07/17/2023 Education Answer Date [...] Job Start Date Job End Date Retired [employer] Not on file Not on file Not on file documented as of this encounter Miscellaneous Notes * Telephone Encounter - Nicolle Funk RN - 07/20/2023 12:42 PM CDT Medication(s) refilled and signed per [facility] Chronic Medication Refill Standing Order for [...] Betancourt 09/21/22 Office Visit Nicolas Greer MD [facility] Showing recent visits within past 365 days and meeting all other requirements Future Appointments No visits were found meeting these conditions. Showing future appointments within next 90 days and meeting all other requirements documented in this encounter Plan of Treatment Upcoming Encounters Date Type Department Care Team (Late st Contact Info) Description 02/17/2025 1:00 PM SLOT SHIFT SUPERVISOR Office Visit [facility] Medical Group - Family Medicine - [place] [address]2 [place] [address] Nicolas Greer MD #[address] [address] 03/23/2025 2:00 PM SLOT SHIFT SUPERVISOR Office Visit [facility] - Pulmonology & Sleep Medicine - [place] [address]2 [place] [address] Raghu Green MD #2 [place] [address] documented as of this encounter Visit Diagnoses Not on filedocumented in this encounter Additional Health Concerns Assessment Noted Time PHQ-9 Depression Total Score: 0 09/22/19 23 1:48 PM CDT documented as of this encounter Care Teams Quick Technician Relationship Specialty Start Date End Date Nicolas Greer MD #[address] [address] PCP - General Family Medicine 09/08/21 Ariel Christianesn MD Consulting Physician Cardiovascular Disease - Cardiology 07/19/16 [place] [address] [address] Carpenter Prototype Pulmonary Disease 06/18/20 Keny Saldaña, WOOD HEEL FLAP RUBBER, UTILITY AGENT #[address] [address] Nurse Practitioner Advanced Practice Nurse 09/08/21 Cristian Dewitt MD #[address] [address] Consulting Physician Cardiovascular Disease - Cardiology 10/06/21 02/07/24 Yamel Kurtz III, MD #2 [place] [address] Consulting Physician Urology 09/11/22 Raghu Green MD #2 [place] [address] Consulting Physician Pulmonary Disease 01/04/22 Warren Osborn MD #[address] [address] Consulting Physician Colon and Rectal Surgery 05/21/23 Ale Spain, RN [place] Nurse Therapeutic Strategy Lead 09/05/23 09/04/24 Chetan Do MD #[address] [address] Consulting Physician Endocrinology 01/23/24 documented as of this encounter
--- OUTSIDE RECORDS SUMMARY | 2024-09-29 13:37 | XMS_ITS | Encounter Summary ---
Author Organization [facility] Address [address] [place] [address] Phone Care Team Providers Care Bi Architect Name Role Phone Ariel Christiansen MD Unavailable [phone] Parmjit Vogel MD Unavailable [phone] Nicolas Greer MD Primary Care Provider [phone] Keny Saldaña APRN, MARY Unavailable Cristian Dewitt MD Unavailable Kate Kurtz III, MD, Courtney Unavailable [phone] Raghu Green MD Unavailable Warren Osborn MD Unavailable Ale Spain RN Unavailable Unavailable Chetan Do MD Unavailable Reason for Visit * Reason Comments Medication Refill Encounter Details Date Type Department Care Team (Late st Contact Info) Description 07/16/2023 Refill [facility] - [facility] Medicine - [place] #2 [place] [address] Nicolas Greer MD #[address] [address] Medication Refill Social History Tobacco Use Types Packs/Day Years Used Date Smoking Tobacco: Former Cigarettes 0.5 50 1 957 - 2007 Smokeless Tobacco: Never Alcohol Use Standard Drinks/Week Comments No 0 (1 standard drink = 0.6 oz pur e alcohol) [facility] Utilities Answer Date Recorded In the past [...] declined 07/17/2023 How often do you attend mosque or temple serv ices? Patient declined 07/17/2023 Do you [...] 09/05 [facility] [place] of Occupat ional Health - Occupational Stress [...] to sleep or slept in a senior living (including now)? Patient declined 04/04/2023 Housing Stability Vital Sign Answer Yuri e Recorded In the last 12 months, was t here a time when you were not able to pay the mortgage or rent on time? No 07/17/2023 Number of Times Moved in the Last Year Not on fi le 07/17/2023 At any time in the past 12 m [facility], were you homeless or living in a senior living (including now)? No 07/17/2023 Education Answer Date [...] Job Start Date Job End Date Retired [employer] Not on file Not on file Not on file documented as of this encounter Functional Status * AUDIT-C Score Answer Date of Assessment Author -1 07/17/2023 1:50 PM CDT [employer], System Background * Q1: How often do you have a drink containing alcohol? Answer Date of Assessment Author Patient declined 07/17/2023 1:50 PM CDT [employer], System Background * Q2: How many drinks containing alcohol do you have on a typical day when you are drinking? Answer Date of Assessment Author Patient does not drink 07/17/2023 1:50 PM CDT [facility] [employer] chart, System Background * Q3: How often do you have six or more drinks on one occasion? Answer Date of Assessment Author Patient declined 07/17/2023 1:50 PM CDT [employer], System Background * Question Answer Date of [...] Questionnaire -2 Score 2 07/18/2023 1:52 PM CDT Janette Blas MA documented as of this encounter Miscellaneous Notes * Telephone Encounter - Nicolle Funk RN - 07/16/2023 11:23 AM CDT [facility]) [facility] Medication Refill Standing Order for [...] Dept 04/04/23 Office Visit Nicolas Greer MD [facility] [...] Info) Description 02/17/2025 1:00 PM SALES AND SERVICE AGENT Office Visit [facility] Medical [facility] Family [facility] #2 [place] [address] Nicolas Greer MD #[address] [address] 03/23/2025 2:00 PM SALES AND SERVICE AGENT Office Visit [facility] - Pulmonology & Sleep Medicine [facility] #2 [place] [address] Raghu Green MD #2 [place] [address] documented as of this encounter Visit Diagnoses Diagnosis Controlled type 2 diabetes mellitus without complication documented in this encounter Additional Health Concerns Assessment Noted Time PHQ-9 Depression Total Score: 0 09/22/19 23 1:48 PM CDT documented as of this encounter Care Teams Bi Architect Relationship Specialty Start Date End Date Nicolas Greer MD #[address] [address] PCP - General Family Medicine 09/08/21 Ariel Christiansen MD Consulting Physician Cardiovascular Disease - Cardiology 07/19/16 [place] [address] [address] Senior Financial Consultant Pulmonary Disease 06/18/20 Keny Saldaña APRN, IC DESIGNER [employer] #[address] [address] Nurse Practitioner Advanced Practice Nurse 09/08/21 Cristian Dewitt MD #[address] [address] Consulting Physician Cardiovascular Disease - Cardiology 10/06/21 02/07/24 Yamel Kurtz III, MD #2 [place] [address] Consulting Physician Urology 09/11/22 Raghu Green MD #2 [place] [address] Consulting Physician Pulmonary Disease 01/04/22 Warren Osborn MD #[address] [address] Consulting Physician Colon and Rectal Surgery 05/21/23 Ale Spain, WALDO [place] Nurse Enroute Controller 09/05/23 09/04/24 Chetan Do MD #[address] [phone] Consulting Physician Endocrinology 01/23/24 documented as of this encounter
--- OUTSIDE RECORDS SUMMARY | 2024-09-29 13:37 | XMS_ITS | Encounter Summary ---
Author Organization [facility] Address [address] [place] [place] [address] Phone Care Team Providers Care Cardiology Nurse Practitioner Name Role Phone Nicolas Greer MD Primary Care Provider [phone] Ariel Christiansen MD Unavailable [phone] Parmjit Vogel MD Unavailable [phone] Nicolas Greer MD Primary Care Provider [phone] Keny Saldaña APRN, DIAGNOSTIC IMAGING MANAGER Unavailable Cristian Dewitt MD Unavailable Ale Black RN Unavailable Unavailable Ale Spain RN Unavailable Unavailable Jerardo MCCANN MD, Courtney Unavailable [phone] Raghu Green MD Unavailable Warren Osborn MD Unavailable Ale Spain RN Unavailable Unavailable Chetan Do MD Unavailable Reason for Visit * Reason Comments Medication Refill Encounter Details Date Type Department Care Team (Late st Contact Info) Description 10/27/2020 Refill [facility] - [facility] #2 [place] [address] Nicolas Greer MD [address] [place] [id number] Medication Refill Social History Tobacco Use Types [...] Industry Job Start Date Job End Date [employer] Not on file Not on file Not [...] CDT She is taking Breztri prescribed by morale officer. * Telephone Encounter - Keny Saldaña APN, [...] Blepharitis of left lower eyelid, unspecified type [facility] Nicolas Waters MD 4 months ago COPD exacerbation (HCC) [facility] Nicolas Waters MD 4 months ago SOB (shortness of breath) [facility] Nicolas Waters MD 7 months ago Chronic obstructive pulmonary disease, unspecified COPD type (HCC) [facility] Nicolas Waters MD 1 year ago Hyperlipidemia, unspecified hyperlipidemia type [facility] Nicolas Waters MD Upcoming Appointments Future Appointments In 1 month Nicolas Greer MD [facility] Serafin [facility] SHAREPOINT DEVELOPER - Recent and Past Visits Recent Visits [...] st Contact Info) Description 02/17/2025 1:00 PM INTERNAL RECRUITER Office Visit [facility] Medical [facility] - Family Medicine - [place] #2 [place] [address] Nicolas Greer MD #[address] [address] 03/23/2025 2:00 PM INTERNAL RECRUITER Office Visit [facility] Medical [facility] - Pulmonology & Sleep Medicine [facility] #2 [place] [address] Raghu Green MD #2 [place] [address] documented as of this encounter Visit Diagnoses Diagnosis Pulmonary emphysema, unspecified emphysema type (HCC) documented in this encounter Additional Health Concerns Infection Onset Date Last Indicated Resolved Time COVID - 19 09/02/2021 09/02/2021 09/03/2021 2:05 PM CDT COVID - 19 12/24/2021 12/24/2021 12/26/2021 8:07 AM INTERNAL RECRUITER Respiratory Rule Out - RPA 12/24/2021 12/24/2021 1 02/24/2021 4:41 PM INTERNAL RECRUITER Influenza 12/24/2021 12/24/2021 12/31/2021 12:1 6 AM INTERNAL RECRUITER Assessment Noted Time PHQ-9 Depression Total Score: 0 02/12/19 10:45 AM INTERNAL RECRUITER documented as of this encounter Care Teams Cardiology Nurse Practitioner Relationship Specialty Start Date End Date Nicolas Greer MD #[address] [address] PCP - General Family Medicine 12/22/14 09/07/21 Nicolas Greer MD #[address] [address] PCP - General Family Medicine 09/08/21 Ariel Christiansen MD #[address] [address] Consulting Physician Cardiovascular Disease - Cardiology 07/19/16 [place] [address] [address] Stock Holder Pulmonary Disease 06/18/20 Keny Saldaña APRN, DIAGNOSTIC IMAGING MANAGER #[address] [address] Nurse Practitioner Advanced Practice Nurse 09/08/21 Cristian Dewitt MD #[address] [address] Consulting Physician Cardiovascular Disease - Cardiology 10/06/21 02/07/24 Ale Spain, RN [place] Wastewater Analyst 03/15/22 02/12/23 Ale Spain, RN MD Nurse Wastewater Analyst 03/15/22 02/13/23 Yamel Kurtz III, MD #2 [place] [address] Consulting Physician Urology 09/11/22 Raghu Green MD #2 [place] [address] Consulting Physician Pulmonary Disease 01/04/22 Warren Osborn MD #[address] [address] Consulting Physician Colon and Rectal Surgery 05/21/23 Ale Spain, WALDO MD Nurse Wastewater Analyst 09/05/23 09/04/24 Chetan Do MD #[address] [address] Consulting Physician Endocrinology 01/23/24 documented as of this encounter
--- OUTSIDE RECORDS SUMMARY | 2024-09-29 13:37 | XMS_ITS | Encounter Summary ---
Author Organization [facility] Address [address] [place] [place] [address] Phone Care Team Providers Care Electrical Journeyman Name Role Phone Ariel Christiansen MD Unavailable [phone] Parmjit Vogel MD Unavailable [phone] Nicolas Greer MD Primary Care Provider [phone] Keny Saldaña APRN, TECHNICAL BUSINESS SYSTEMS ANALYST Unavailable Cristian Dewitt MD Unavailable Ale Black RN Unavailable Unavailable Ale Spain RN Unavailable Unavailable Jerardo MCCANN MD, Courtney Unavailable [phone] Raghu Green MD Unavailable Warren Osborn MD Unavailable Ale Spain RN Unavailable Unavailable Chetan Do MD Unavailable Encounter Details Date Type Department Care Team (Late st Contact Info) Description 02/15/2022 Lab Requisition [facility] Services [address] [place] [address] Nicolas Greer MD #[address] [address] Anemia, unspecified Social History Tobacco Use Types [...] Job Start Date Job End Date Retired [employer] Not on file Not on file Not on file COVID-19 Exposure Response Date Recorded In the last 10 days, have yo u been in contact with someone who was confirmed or suspected to have Coronavirus/COVID-19? No / Unsure 02/15/2022 10:32 AM DEMOLITION WORKER documented as of this encounter Plan of Treatment Upcoming Encounters Date Type Department Care Team (Late st Contact Info) Description 02/17/2025 1:00 PM DEMOLITION WORKER [facility] - [place] #2 [place] [address] Nicolas Greer MD #[address] [address] 03/23/2025 2:00 PM DEMOLITION WORKER [facility] #2 [place] [address] Raghu Green MD #2 [place] [address] documented as of this encounter Procedures Procedure Name Priority Date/Time Associated Diagnosis Comments CBC WITH AUTO DIFFERENTIAL Routine 02/15/2022 11:02 AM DEMOLITION WORKER Anemia, unspecified COMPLETE BLOOD COUNT (CBC) WITH DIFF Routine 02/15/2022 11:02 AM DEMOLITION WORKER Anemia, unspecified documented in this encounter Results * (ABNORMAL) CBC WITH AUTO DIFFERENTIAL (02/15/2022 11:02 AM [facility]) WBC 6.92 4.00 - 12.00 10(3)/mcL 02/15/2022 1:16 PM [facility] RBC 3.85 3.80 - 5.30 10(6)/mcL 02/15/2022 1:16 PM [facility] HEMOGLOBIN (HGB) 11.9(L) 12.0 - 15.8 g/dL 02/15/2022 1:16 PM [facility] HEMATOCRIT (HCT) 38.3 36.0 - 47.0 % 02/15/2022 1:16 PM [facility] MCV 99.5(H) 82.0 - 96.0 fL 02/15/2022 1:16 PM [facility] MCH 30.9 26.0 - 34.0 pg 02/15/2022 1:16 PM [facility] MCHC 31.1 31.0 - 36.0 g/dL 02/15/2022 1:16 PM [facility] PLATELET COUNT 427 140 - 440 10(3)/mcL 02/15/2022 1:16 PM [facility] RDW 13.8 11.8 - 15.5 % 02/15/2022 1:16 PM [facility] MPV 9.6(L) 9.7 - 12.4 fL 02/15/2022 1:16 PM [facility] NEUTROPHILS 78.3(H) 47.0 - 73.0 % 02/15/2022 1:16 PM [facility] LYMPHOCYTES 13.6(L) 18.0 - 42.0 % 02/15/2022 1:16 PM [facility] MONOCYTES 6.6 4.0 - 12.0 % 02/15/2022 1:16 PM DEMOLITION WORKER [facility] EOSINOPHILS 0.9 0.0 - 5.0 % 02/15/2022 1:16 PM DEMOLITION WORKER [facility] BASOPHILS 0.6 0.0 - 1.0 % 02/15/2022 1:16 PM DEMOLITION WORKER [facility] ABSOLUTE NEUTROPHILS 5.42 1.60 - 7.70 10(3)/[facility] 02/15/2022 1:16 PM DEMOLITION WORKER [facility] ABSOLUTE LYMPHOCYTES 0.94(L) 1.30 - 3.20 10(3)/[facility] 02/15/2022 1:16 PM DEMOLITION WORKER [facility] ABSOLUTE MONOCYTES 0.46 0.20 - 1.00 10(3)/[facility] 02/15/2022 1:16 PM [facility] ABSOLUTE EOSINOPHIL 0.06 0.00 - 0.40 10(3)/[facility] 02/15/2022 1:16 PM [facility] ABSOLUTE BASOPHILS 0.04 0.00 - 0.10 10(3)/[facility] 02/15/2022 1:16 PM [facility] NRBC PER 100 WBC 0 02/15/19 23 1:16 PM [facility] Blood No Phlebotomy Charged / Unknown 02/15/2022 11:02 AM DEMOLITION WORKER 02/15/2022 1:12 PM DEMOLITION WORKER Nicolas Greer MD HEMATOLOGY ORDERABLES Fin al Result [facility] [address] [place] [address] documented in this encounter Visit Diagnoses Diagnosis Anemia, unspecified documented in this encounter Additional Health Concerns Assessment Noted Time PHQ-9 Depression Total Score: 0 02/12/19 20 10:45 AM DEMOLITION WORKER documented as of this encounter Care Teams Electrical Journeyman Relationship Specialty Start Date End Date Nicolas Greer MD [address] [address] PCP - General Family Medicine 09/08/21 Ariel Christiansen MD Consulting Physician Cardiovascular Disease - Cardiology 07/19/16 [place] [address] [address] Malt Liquors Sales Supervisor Pulmonary Disease 06/18/20 Keny Saldaña, TRACKWALKER, TECHNICAL BUSINESS SYSTEMS ANALYST #[address] [address] Nurse Practitioner Advanced Practice Nurse 09/08/21 Cristian Dewitt MD #[address] [address] Consulting Physician Cardiovascular Disease - Cardiology 10/06/21 02/07/24 Ale Spain, RN [place] Transcribing Machine Mechanic 03/15/22 02/12/23 Ale Spain, RN [place] Nurse Transcribing Machine Mechanic 03/15/22 02/13/23 Yamel Kurtz III, MD #2 [place] [address] Consulting Physician Urology 09/11/22 Raghu Green MD #2 [place] [address] Consulting Physician Pulmonary Disease 01/04/22 Warren Osborn MD #[address] [address] Consulting Physician Colon and Rectal Surgery 05/21/23 Ale Spain, RN [place] Nurse Transcribing Machine Mechanic 09/05/23 09/04/24 Chetan Do MD #[address] [address] Consulting Physician Endocrinology 01/23/24 documented as of this encounter
--- OUTSIDE RECORDS SUMMARY | 2024-09-29 13:37 | XMS_ITS | Encounter Summary ---
Author Organization [facility] Address [address] [place] [address] Phone Care Team Providers Care Lithographic Press Operator Apprentice Name Role Phone Ariel Christiansen MD Unavailable [phone] Parmjit Vogel MD Unavailable [phone] Nicolas Greer MD Primary Care Provider [phone] Keny Saldaña APRN, ELECTRONIC COURT RECORDER Unavailable Cristian Dewitt MD Unavailable Ale Black RN Unavailable Unavailable Ale Spain RN Unavailable Unavailable Jerardo MCCANN MD, Courtney Unavailable [phone] Raghu Green MD Unavailable Warren Osborn MD Unavailable Ale Spain RN Unavailable Unavailable Chetan Do MD Unavailable Encounter Details Date Type Department Care Team (Late st Contact Info) Description 02/16/2022 Lab Requisition [facility] 1 [place] [address] Nicolas Greer MD #[address] [address] Other fatigue Social History Tobacco Use Types [...] Industry Job Start Date Job End Date [employer] Not on file Not on file Not on file COVID-19 Exposure Response Date Recorded In the last 10 days, have yo u been in contact with someone who was confirmed or suspected to have Coronavirus/COVID-19? No / Unsure 02/15/2022 10:32 AM WIRER documented as of this encounter Plan of Treatment Upcoming Encounters Date Type Department Care Team (Late st Contact Info) Description 02/17/2025 1:00 PM WIRER [facility] Medicine - [place] #2 [place] [address] Nicolas Greer MD #[address] [address] 03/23/2025 2:00 PM WIRER Office Visit [facility] - Pulmonology & Sleep Medicine [facility] #2 [place] [address] Raghu Green MD #2 [place] [address] documented as of this encounter Procedures Procedure Name Priority Date/Time Associated Diagnosis Comments CULTURE, URINE Routine 02/16/2022 8:25 AM WIRER Other fatigue documented in this encounter Results * CULTURE, URINE (02/16/2022 8:25 AM WIRER) CULTURE RESULTS MIXED GROWTH OF ONE OR MORE DISTAL URETHRAL CONTAMINANTS 02/17/2022 4:22 PM WIRER [facility] Culture Non-Phlebotomy Collection / Unknown 02/16/2022 8:25 AM WIRER 02/16/2022 10:53 AM WIRER Nicolas Greer MD MICROBIOLOGY - GENERAL OR DERABLES Final Result [facility] [address] [place] [address], documented in this encounter Visit Diagnoses Diagnosis Other fatigue documented in this encounter Additional Health Concerns Assessment Noted Time PHQ-9 Depression Total Score: 0 02/12/19 10:45 AM WIRER documented as of this encounter Care Teams Lithographic Press Operator Apprentice Relationship Specialty Start Date End Date Nicolas Greer MD #[address] [address] PCP - General Family Medicine 09/08/21 Ariel Christiansen MD Consulting Physician Cardiovascular Disease - Cardiology 07/19/16 [place] [address] [address] Hair Clipper Power Pulmonary Disease 06/18/20 Keny Saldaña, TIRE MECHANIC, ELECTRONIC COURT RECORDER #[address] [address] Nurse Practitioner Advanced Practice Nurse 09/08/21 Cristian Dewitt MD #[address] [address] Consulting Physician Cardiovascular Disease - Cardiology 10/06/21 02/07/24 Ale Spain, RN [place] Spring Former Machine 03/15/22 02/12/23 Ale Spain, RN [place] Nurse Spring Former Machine 03/15/22 02/13/23 Yamel Kurtz III, MD #2 [place] [address] Consulting Physician Urology 09/11/22 Raghu Green MD #2 [place] [address] Consulting Physician Pulmonary Disease 01/04/22 Warren Osborn MD #[address] [address] Consulting Physician Colon and Rectal Surgery 05/21/23 Ale Spain, RN [place] Nurse Spring Former Machine 09/05/23 09/04/24 Chetan Do MD #[address] [address] Consulting Physician Endocrinology 01/23/24 documented as of this encounter
--- OUTSIDE RECORDS SUMMARY | 2024-09-29 13:37 | XMS_ITS | Encounter Summary ---
Author Organization [facility] Address [address] [place] [address] [place] [address] Phone Care Team Providers Care Wreath Inspector Name Role Phone Nicolas Greer MD Primary Care Provider [phone] Ariel Christiansen MD Unavailable [phone] Parmjit Vogel MD Unavailable [phone] Nicolas Greer MD Primary Care Provider [phone] Keny Saldaña APRN, ASSEMBLY MACHINE FEEDER Unavailable Cristian Dewitt MD Unavailable Ale Black RN Unavailable Unavailable Ale Spain RN Unavailable Unavailable Jerardo MCCANN MD, Courtney Unavailable [phone] Raghu Green MD Unavailable Warren Osborn MD Unavailable Ale Spain RN Unavailable Unavailable Chetan Do MD Unavailable Reason for Visit * Reason Comments Medication Refill Encounter Details Date Type Department Care Team (Late st Contact Info) Description 12/21/2020 Refill [facility] - [facility] [address] [place] [address] Nicolas Greer MD [address] [place] [id number] Medication Refill Social History Tobacco Use Types [...] Job Start Date Job End Date Retired [employer] Not on file Not on file Not on file COVID-19 Exposure Response Date Recorded In the last month, have you been in contact with someone who was confirmed or suspected to have Coronavirus / COVID-19? No / Unsure 12/20/2020 11:11 AM SAMPLE CHECKER documented as of this encounter Miscellaneous Notes [...] 6 months ago SOB (shortness of breath) [facility] Nicolas Waters MD 9 months ago Chronic obstructive pulmonary disease, unspecified COPD type (HCC) [facility] Nicolas Waters MD Upcoming Appointments Future Appointments In 3 months Nicolas Greer MD [facility], [facility] - Recent and Past Visits Recent Visits Date Type Provider Dept 12/20/20 Office Visit Nicolas Greer MD [facility] 09/22/20 Office Visit Nicolas Greer MD [facility] 06/21/20 Office Visit Nicolas Greer MD [facility] 06/08/20 Office Visit Nicolas Greer MD [facility] 03/11/20 Office Visit Nicolas Greer MD [facility] 10/14/19 Office Visit Nicolas Greer MD [facility] Showing recent visits within past 460 days with a meds authorizing provider and meeting all other requirements Future Appointments No visits were found meeting these conditions. Showing future appointments within next 90 days with a meds authorizing provider and meeting all other requirements LE CHECKER documented in this encounter Plan of Treatment Upcoming Encounters Date Type Department Care Team (Late st Contact Info) Description 02/17/2025 1:00 PM SAMPLE CHECKER Office Visit [facility] [address] [place] [address] Nicolas Greer MD #[address] [address] 03/23/2025 2:00 PM SAMPLE CHECKER Office Visit [facility] - Pulmonology & Sleep Medicine - [place] [address] [place] [address] Raghu Green MD [address]2 [place] [address] documented as of this encounter Visit Diagnoses Diagnosis Pulmonary emphysema, unspecified emphysema type (HCC) documented in this encounter Additional Health Concerns Infection Onset Date Last Indicated Resolved Time COVID - 19 09/02/2021 09/02/2021 09/03/2021 2:05 PM CDT COVID - 19 12/24/2021 12/24/2021 12/26/2021 8:07 AM SAMPLE CHECKER Respiratory Rule Out - RPA 12/24/2021 12/24/2021 1 02/24/2021 4:41 PM SAMPLE CHECKER Influenza 12/24/2021 12/24/2021 12/31/2021 12:1 6 AM SAMPLE CHECKER Assessment Noted Time PHQ-9 Depression Total Score: 0 02/12/19 10:45 AM SAMPLE CHECKER documented as of this encounter Care Teams Wreath Inspector Relationship Specialty Start Date End Date Nicolas Greer MD #[address] [address] PCP - General Family Medicine 12/22/14 09/07/21 Nicolas Greer MD #[address] [address] PCP - General Family Medicine 09/08/21 Ariel Christiansen MD #[address] [address] Consulting Physician Cardiovascular Disease - Cardiology 07/19/16 [place] [address] [address] Medical Parasitologist Pulmonary Disease 06/18/20 Keny Saldaña APRN, ASSEMBLY MACHINE FEEDER #[address] [address] Nurse Practitioner Advanced Practice Nurse 09/08/21 Cristian Dewitt MD #[address] [address] Consulting Physician Cardiovascular Disease - Cardiology 10/06/21 02/07/24 Ale Spain, RN [place] Ironer Hand 03/15/22 02/12/23 Ale Spain, RN [place] Nurse Ironer Hand 03/15/22 02/13/23 Yamel Kurtz III, MD #2 [place] [address] Consulting Physician Urology 09/11/22 Raghu Green MD #2 [place] [address] Consulting Physician Pulmonary Disease 01/04/22 Warren Osborn MD #[address] [address] Consulting Physician Colon and Rectal Surgery 05/21/23 Ale Spain, RN [place] Nurse Ironer Hand 09/05/23 09/04/24 Chetan Do MD #[address] [phone] Consulting Physician Endocrinology 01/23/24 documented as of this encounter
--- OUTSIDE RECORDS SUMMARY | 2024-09-29 13:37 | XMS_ITS | Encounter Summary ---
Author Organization [facility] Address [address] [place] [address] Phone Care Team Providers Care Wine Cellar Worker Name Role Phone Ariel Christiansen MD Unavailable [phone] Parmjit Vogel MD Unavailable [phone] Nicolas Greer MD Primary Care Provider [phone] Keny Saldaña APRN, MARY Unavailable Cristian Dewitt MD Unavailable Kate Kurtz III, MD, Courtney Unavailable [phone] Raghu Green MD Unavailable Warren Osborn MD Unavailable Ale Spain RN Unavailable Unavailable Chetan Do MD Unavailable Reason for Visit * Reason Comments Medication Refill Encounter Details Date Type Department Care Team (Late st Contact Info) Description 08/16/2023 Refill [facility] - Family Medicine - [place] [address] [place] [address] Nicolas Greer MD #[address] [address] Medication Refill Social History Tobacco Use Types Packs/Day Years Used Date Smoking Tobacco: Former Cigarettes 0.5 50 1 957 - 2007 Smokeless Tobacco: Never Alcohol Use Standard Drinks/Week Comments No 0 (1 standard drink = 0.6 oz pur e alcohol) [facility] Utilities Answer Date Recorded In the [...] declined 07/17/2023 How often do you attend confucianism or scientology serv ices? Patient declined 07/17/2023 Do you belong to any clubs o r organizations such as confucianism groups, unions, fraternal or athletic groups, or [...] Total Score - Questions 1-9 0 09/05 [facility] of Occupat ional Health - Occupational Stress [...] place to sleep or slept in a group home (including now)? Patient declined 04/04/2023 Housing Stability Vital Sign Answer Yuri e Recorded In the last 12 months, was t here a time when you were not able to pay the mortgage or rent on time? No 07/17/2023 Number of Times Moved in the Last Year Not on fi le 07/17/2023 At any time in the past 12 m [facility], were you homeless or living in a group home (including now)? No 07/17/2023 Education Answer [...] Job Start Date Job End Date Retired Social Strategy 1 Not on file Not on file Not on file documented as of this encounter Plan of Treatment Upcoming Encounters Date Type Department Care Team (Late st Contact Info) Description 02/17/2025 1:00 PM BUSINESS SERVICES DIRECTOR Office Visit [facility] [place] [address] [place] [address] Nicolas Greer MD #[address] [address] 03/23/2025 2:00 PM BUSINESS SERVICES DIRECTOR Office Visit [facility] - Pulmonology & Sleep Medicine - [place] [address] [place] [address] Raghu Green MD #2 [place] [address] documented as of this encounter Visit Diagnoses Diagnosis Mixed stress and urge urinary incontinence Mixed incontinence urge and stress (male)(female) documented in this encounter Additional Health Concerns Assessment Noted Time PHQ-9 Depression Total Score: 0 09/22/19 23 1:48 PM CDT documented as of this encounter Care Teams Wine Cellar Worker Relationship Specialty Start Date End Date Nicolas Greer MD #[address] [address] PCP - General Family Medicine 09/08/21 Ariel Christiansen MD Consulting Physician Cardiovascular Disease - Cardiology 07/19/16 [place] [address] [address] Multi Share Program Coordinator Pulmonary Disease 06/18/20 Keny Saldaña, CLAY MIXER, MOLECULAR BIOLOGY PROFESSOR #[address] [address] Nurse Practitioner Advanced Practice Nurse 09/08/21 Cristian Dewitt MD #[address] [address] Consulting Physician Cardiovascular Disease - Cardiology 10/06/21 02/07/24 Yamel Kurtz III, MD #2 [place] [address] Consulting Physician Urology 09/11/22 Raghu Green MD #2 [place] [address] Consulting Physician Pulmonary Disease 01/04/22 Warren Osborn MD #[address] [address] Consulting Physician Colon and Rectal Surgery 05/21/23 Ale Spain RN [place] Nurse Toter 09/05/23 09/04/24 Chetan Do MD #[address] [phone] Consulting Physician Endocrinology 01/23/24 documented as of this encounter
--- OUTSIDE RECORDS SUMMARY | 2024-09-29 13:37 | XMS_ITS | Encounter Summary ---
Author Organization [facility] Address [address] [place] [address] Phone Care Team Providers Care Drop Hammer Operator Helper Name Role Phone Ariel Christiansen MD Unavailable [phone] Parmjit Vogel MD Unavailable [phone] Nicolas Greer MD Primary Care Provider [phone] Keny Saldaña APRN, MARY Unavailable Cristian Dewitt MD Unavailable Kate Kurtz III, MD, Courtney Unavailable [phone] Raghu Green MD Unavailable Warren Osborn MD Unavailable Ale Spain RN Unavailable Unavailable Chetan Do MD Unavailable Reason for Visit * Reason Comments Medication Refill Encounter Details Date Type Department Care Team (Late st Contact Info) Description 09/21/2023 Refill [facility] - Family Medicine - [place] [address] [place] [address] Nicolas Greer MD #[address] [address] Medication Refill Social History Tobacco Use Types Packs/Day Years Used Date Smoking Tobacco: Former Cigarettes 0.5 50 1 957 - 2007 Smokeless Tobacco: Never Alcohol Use Standard Drinks/Week Comments No 0 (1 standard drink = 0.6 oz pur e alcohol) [facility] Utilities Answer Date Recorded In the past 12 months has e electric, gas, oil, or water company threatened to shut off services in your home? No 09/05/2023 Social Connection and Isolation Panel Answer Date Recorded In a typical week, how many times do you talk on the phone with family, friends, or neighbors? Twice a week 09/05/2023 How often do you get together with friends or re latives? Twice a week 09/05/2023 How often do you attend bahai or zoroastrianism serv ices? Never 09/05/2023 Do you belong to any clubs o r organizations such as bahai groups, unions, fraternal or athletic groups, or [...] Total Score - Questions 1-9 2 08/07 [facility] of Occupat ional Health - Occupational Stress [...] a snf (including now)? Patient declined 04/04/2023 Housing Stability [...] any time in the past 12 m [facility], were you homeless or living in a snf (including now)? No 09/05/2023 Education Answer Date [...] Industry Job Start Date Job End Date [employer] Not on file Not on file Not on file documented as of this encounter Plan of Treatment Upcoming Encounters Date Type Department Care Team (Late st Contact Info) Description 02/17/2025 1:00 PM ONLINE BANKING SPECIALIST Office Visit [facility] Medical [facility] Family Medicine [facility] [place] [address]2 [place] [address] Nicolas Greer MD #[address] [address] 03/23/2025 2:00 PM ONLINE BANKING SPECIALIST Office Visit [facility] - Pulmonology & Sleep Medicine [facility] [place] #2 [place] [address] Raghu Green MD #[address] [place] [address] documented as of this encounter Visit Diagnoses Not on filedocumented in this encounter Additional Health Concerns Assessment Noted Time PHQ-9 Depression Total Score: 2 09/05/19 24 1:00 PM CDT documented as of this encounter Care Teams Drop Hammer Operator Helper Relationship Specialty Start Date End Date Nicolas Greer MD #[address] [address] PCP - General Family Medicine 09/08/21 Ariel Christiansen MD Consulting Physician Cardiovascular Disease - Cardiology 07/19/16 [place] [address] [address] Black Ash Burner Operator Pulmonary Disease 06/18/20 Keny Saldaña, SEO EXECUTIVE, ICEBOX WORKER #[address] [address] Nurse Practitioner Advanced Practice Nurse 09/08/21 Cristian Dewitt MD #[address] [address] Consulting Physician Cardiovascular Disease - Cardiology 10/06/21 02/07/24 Yamel Kurtz III, MD #2 [place] [address] Consulting Physician Urology 09/11/22 Raghu Green MD #2 [place] [address] Consulting Physician Pulmonary Disease 01/04/22 Warren Osborn MD #[address] [address] Consulting Physician Colon and Rectal Surgery 05/21/23 Ale Spain, RN [place] Nurse Coremaker 09/05/23 09/04/24 Chetan Do MD #[address] [phone] Consulting Physician Endocrinology 01/23/24 documented as of this encounter
[2024-09-29 13:47] LABS: Hematocrit 39.3 % (35.0-42.0); Hemoglobin 11.7 g/dL (11.7-13.8); Mean Corpuscular HGB Conc 29.8 g/dL (32-36); Mean Corpuscular Hemoglobin 29.7 pg (27.0-31.0); Mean Corpuscular Volume 99.7 fL (78.0-102.0); Platelet Count Result 253 K/mm3 (150-420); Red Blood Count 3.94 M/mm3 (4.20-5.40); White Blood Count 8.6 K/mm3 (4.8-10.8)
[2024-09-29 14:17] LABS: Iron 83 ug/dL (37-170)
[2024-09-29 14:27] LABS: Percent Iron Saturation 30 % (20-50)
[2024-09-29 14:38] LABS: Albumin Level 4.2 g/dL (3.5-5.1); Anion Gap 7.99999 mmol/L (4-12); Blood Urea Nitrogen 20 mg/dL (7-17); Calcium 10.2 mg/dL (8.4-10.2); Carbon Dioxide > 40 mmol/L (22-30); Chloride 93 mmol/L (98-107); Estimated Glomerular Filt Rate 58; Glucose 131 mg/dL (65-110); Osmolality Calculated 296 mOsm/kg (285-295); Potassium 3.6 mmol/L (3.4-5.0); Sodium 141 mmol/L (137-145); Uric Acid 3.7 mg/dL (2.5-7.5)
[2024-10-08 18:08] LABS: 1,25-Dihydroxy, Vitamin D-2 26 pg/mL (.); 1,25-Dihydroxy, Vitamin D-3 108 pg/mL (.); Total 1,25-Dihydroxy,Vitamin D 134 pg/mL (.)
== END 2024-09-29 13:26 | disposition home or self-care (01) ==
LOC: CHSLAB 13:30
PROVIDERS: PCP Family Medicine; Visit Provider Internal Medicine Nephrology
DX: N18.31 Chronic kidney disease, stage 3a (principal)
CPT/HCPCS: 36415; 80069; 82652; 83540; 83550; 83970; 84550; 85027